=== PATIENT | female | born 1945 | race Caucasian/White ===

== ENCOUNTER 2018-07-28 13:15 | Inpatient (IN) | payer MEDICARE, OTHER ==
[~2018-07-28] VITALS: Ht 157.5 cm; Wt 66.2 kg
[~2018-07-28 13:15] MED LIST: ACET325T45 PO; ACETYLCYSTEINE ODT; AMIO200T4 PO; ASPI-831 PO; CARV6.2579 PO; CLOP75TA27 PO; DIGO0.25 PO; FLUO20CA22 PO; ISOS20TA3 PO; LOPE2TAB61 PO; METO5AMP IV; MORP2CAR IV; NITR0.4T32 SL; ONDA4VIA3 IV; PANT40TA4 PO; POTASSIUM CL PO; REG SC; RTATR NEB; RTPRO IH; SIMV20TA2 PO; THYR60TA PO; [UNRECOGNIZED DRUG - CODE] IV
[2018-07-28] MEDS ORDERED: METHYLPREDNISOLONE 125 MG INJ IV STA (13:38)
[2018-07-28] MEDS ORDERED: VANCOMYCIN 1 GM (PMX) 250 ML IVPB STA (13:38)
[2018-07-28] MEDS ORDERED: ALBUTEROL 0.5% (NEB) 2.5 MG/0.5 ML AMP INH STA (13:38)
[2018-07-28] MEDS ORDERED: SODIUM CHLORIDE 0.9% 1L BAG IV* STA (13:38)
[2018-07-28] MEDS ORDERED: LEVOFLOXACIN 750MG/D5W (PMX) 150 ML IVPB STA (13:38)
[2018-07-28] MEDS ORDERED: IPRATROPIUM (NEB) 0.5 MG/2.5 ML AMP INH STA (13:38)
[2018-07-28] MEDS ORDERED: UDKCL40 PO (14:34)
[2018-07-28] MEDS ORDERED: AMIO200T4 PO (14:41)
[2018-07-28] MEDS ORDERED: APIX5TAB PO (14:42)
[2018-07-28] MEDS ORDERED: ASCO500C7 PO (14:42)
[2018-07-28] MEDS ORDERED: HYDR25SU23 PR (14:42)
[2018-07-28] MEDS ORDERED: ASPI-903 PO (14:43)
[2018-07-28] MEDS ORDERED: BEN25 PO (14:48)
[2018-07-28] MEDS ORDERED: LORA0.5T PO (14:49)
[2018-07-28] MEDS ORDERED: FLUT1BLS INHALATION (14:49)
[2018-07-28] MEDS ORDERED: CALC1TAB79 PO (14:50)
[2018-07-28] MEDS ORDERED: CLON0.5T14 PO (14:50)
[2018-07-28] MEDS ORDERED: CLON-379 PO (14:51)
[2018-07-28] MEDS ORDERED: CYAN500T46 PO (14:52)
[2018-07-28] MEDS ORDERED: HYDR2TAB36 PO (14:54)
[2018-07-28] MEDS ORDERED: DOCU-144 PO (14:55)
[2018-07-28] MEDS ORDERED: BISA10SU55 RC (14:56)
[2018-07-28] MEDS ORDERED: FER325 PO (14:57)
[2018-07-28] MEDS ORDERED: PREM45 PO (14:57)
[2018-07-28] MEDS ORDERED: GABA100C14 PO (14:58)
[2018-07-28] MEDS ORDERED: FOLI-49 PO (14:58)
[2018-07-28] MEDS ORDERED: LACT1CAP57 PO (14:59)
[2018-07-28] MEDS ORDERED: IPRA3AMP29 INHALATION (14:59)
[2018-07-28] MEDS ORDERED: ATOR10TA65 PO (15:00)
[2018-07-28] MEDS ORDERED: FURO-110 PO (15:00)
[2018-07-28] MEDS ORDERED: LIDO5CRE24 TP (15:00)
[2018-07-28] MEDS ORDERED: MAGN400O19 PO (15:02)
[2018-07-28] MEDS ORDERED: METO-429 PO (15:02)
[2018-07-28] MEDS ORDERED: HYDR-3980 PO (15:03)
[2018-07-28] MEDS ORDERED: MULTI PO (15:03)
[2018-07-28] MEDS ORDERED: GUAI600T23 PO (15:03)
[2018-07-28] MEDS ORDERED: OMEG1CAP2 PO (15:04)
[2018-07-28] MEDS ORDERED: CHLO473M4 MM (15:04)
[2018-07-28] MEDS ORDERED: LANS30CA PO (15:05)
[2018-07-28] MEDS ORDERED: PRED20TA PO (15:05)
[2018-07-28] MEDS ORDERED: VIT1CAPS42 PO (15:05)
[2018-07-28] MEDS ORDERED: FLUO20CA38 PO (15:06)
[2018-07-28] MEDS ORDERED: PROM6.256 PO (15:06)
[2018-07-28] MEDS ORDERED: SENN-120 PO (15:07)
[2018-07-28] MEDS ORDERED: MONT10TA21 PO (15:07)
[2018-07-28] MEDS ORDERED: CARI350T29 PO (15:08)
[2018-07-28] MEDS ORDERED: TRAZ-111 PO (15:08)
[2018-07-28] MEDS ORDERED: ACET-2047 PO (15:09)
[2018-07-28] MEDS ORDERED: GUAI400T58 PO (15:10)
[2018-07-28] MEDS ORDERED: ONDA8TAB9 PO (15:10)
[2018-07-28] MEDS ORDERED: IODIXANOL LOCM 100 ML BTL ONE (15:15)
[2018-07-28] MEDS ORDERED: SOD CHLORIDE 0.9% 100 ML ONE (15:15)
[2018-07-28] MEDS ORDERED: VANCOMYCIN IV PER PHARMACY XX SCH (17:30)
[2018-07-28] MEDS ORDERED: ALBUTEROL/IPRATROPIUM (NEB) 3 ML AMP HHN PRN (17:30)
[2018-07-28 19:15] VITALS: PULSE 99
[2018-07-28 19:30] VITALS: Ht 157.5 cm; Wt 66.2 kg
[2018-07-28] MEDS: ALBUTEROL/IPRATROPIUM (NEB) 3 ML AMP HHN SCH (19:31)
--- NOTE | 2018-07-28 19:34 | CONS ---
DATE OF ADMISSION: 07/28/2018 DATE OF CONSULTATION: TYPE OF CONSULTATION: Nephrology. REASON FOR CONSULTATION: Acute kidney injury. REQUESTING PHYSICIAN: Dr. Staples. HISTORY OF PRESENT ILLNESS: This is a 73-year-old female with a past medical history of hypertension , history of anemia, recent history of hip fracture, a previous history of sepsis, pneumonia, respira tory failure who presents to [facility] from a skilled nurse facility due to shortn ess of breath. The patient recently was discharged from skilled nurse facility, but unfortunately yusuf d a mechanical fall with resultant hip fracture. The patient underwent hip arthroplasty and was gardner sferred to a skilled nurse facility. While at [facility], the patient became short of br eath and was transferred [facility]. Upon arrival to the Emergency Room, patient h ad imaging studies including a CT angio which showed moderate pulmonary fibrosis, bilateral lung apic es, mediastinal adenopathy, multifocal pleural effusions, bibasilar opacities, and dilated pulmonary arteries consistent with pulmonary hypertension. The patient upon arrival was also noted to have a w livia count of 9.3. In the Emergency Room, the patient was placed on a nonrebreather BiPAP, placed on IV antibiotics, type and cross 1 unit PRBC, and also given steroids. In terms of patient's renal history, the patient's baseline renal function is unknown. The patient o n admission was noted to have creatinine of 1.17. The patient denies any recent history of hemoptysi s, hematemesis or hematochezia. PAST MEDICAL HISTORY: As stated above, history of hypertension, history of anemia, history of respir atory failure, history of pneumonia. PAST SURGICAL HISTORY: Previous history of trach and history of PEG with removal. FAMILY HISTORY: No family history of kidney disease. SOCIAL HISTORY: Resides at a skilled nurse facility. MEDICATIONS: The patient's medications have been reviewed. ALLERGIES: ALLERGIES HAVE BEEN REVIEWED. REVIEW OF SYSTEMS: A 14-point review of systems was conducted. Pertinent positives are as stated in HPI, otherwise negative. PHYSICAL EXAMINATION: VITAL SIGNS: Blood pressure is 134/56, respiration is24, pulse 99, temperature 98.4. HEENT: Head is normocephalic. NECK: Supple. HEART: Regular rate. LUNGS: Show diminished breath sounds at the base, positive rhonchi. ABDOMEN: Soft, nontender to palpation, no rebound or guarding. EXTREMITIES: Negative for clubbing and cyanosis. No edema. DERMATOLOGIC: No rashes. MUSCULOSKELETAL: No joint effusions. NEUROLOGIC: No focal deficits. LABORATORY DATA: Sodium 138, potassium 4.1, chloride 105, BUN 26, creatinine 1.19. The patient's fe rritin level is 134. Iron saturation is 5. Hemoglobin 10.0, white count 9.3, platelet count 312. T he patient's imaging studies were reviewed. ASSESSMENT AND PLAN: This is a 73-year-old female who presents with problem: 1. Nonoliguric acute kidney injury with unknown baseline creatinine. Etiology of acute kidney injur y is possibly due to hemodynamics versus chronic kidney disease. The patient's urinalysis is bland, no active sediment. Plan at this point is to check renal ultrasound. We will check urine electrolyt es, calculate FENa. We would otherwise continue current treatment plan, continue IV antibiotics, con tinue supportive care, renally dose all meds. 2. Anemia with iron deficiency. The patient is pending blood transfusion. Continue IV iron. Rule out gastrointestinal bleed. Monitor closely. 3. Mineral bone disorder. Monitor calcium and phosphorus level. 4. Acute hypoxemic respiratory failure secondary to pneumonia, healthcare acquired, and pulmonary fi brosis. Continue medical management with antibiotics, steroids, nebulizers, and continue BiPAP as ne eded. Followup with pulmonary. 5. Multiloculated pleural effusion, etiology may be peripneumonic. Continue to monitor. Consider t horacentesis. 6. History of hypertension. Continue to monitor. 7. Acute encephalopathy, etiology toxic metabolic. 8. Status post hip arthroplasty. Thank you, Dr. Staples, for this interesting consult. It will be a pleasure to follow patient with you throughout the hospital course. Dictated By: GENEVIEVE MENJIVAR DO NR/NTS Conf#: [id number] DID#: [id number] CC: ABDIAS STAPLES MD;*EndCC*
[2018-07-28 20:00] VITALS: BP 145/65; PULSE 109; PULSE 99; RESP 22
[2018-07-28] MEDS ORDERED: ACETAMINOPHEN 325 MG TAB PO PRN (21:00)
[2018-07-28] MEDS ORDERED: MAGNESIUM HYDROXIDE 30ML CUP PO PRN (21:00)
[2018-07-28] MEDS ORDERED: CARISOPRODOL 350 MG TAB PO PRN (21:00)
[2018-07-28] MEDS ORDERED: ASCORBIC ACID 500 MG TAB.CHEW PO SCH (21:00)
[2018-07-28] MEDS ORDERED: DOCUSATE SODIUM 100 MG CAP PO PRN (21:00)
[2018-07-28] MEDS ORDERED: AMIODARONE 200 MG TAB PO SCH (21:00)
[2018-07-28] MEDS ORDERED: ONDANSETRON 4 MG INJ IV PRN (21:00)
[2018-07-28] MEDS ORDERED: FUROSEMIDE 40 MG INJ IV ONE (21:00)
--- NOTE | 2018-07-28 21:32 | CONS ---
Date/Time of Note Date/Time of Note DATE: 07/28/18 TIME: 21:25 Assessment/Plan Assessment/Plan Hospital Course 1. Hypoxemic respiratory failure 2. Pulmonary fibrosis 3. Elevated BNP most likely secondary to above 4. History of paroxysmal atrial fibrillation 5. Encephalopathy 6. Most likely pneumonia 7. History of recent fall and hip fracture status post surgery 8. Anemia 9. Lactic acidosis 10. Hypertension Recommendations: I will stop the aspirin since the patient is already on Eliquis Low-dose diuretics will be continued and adjusted as needed Chest ultrasound will be checked to evaluate for feasibility of thoracentesis if needed Antibiotic management as per internal medicine We will continue to monitor on telemetry Correct electrolytes as needed Transfusions as needed Thank you for his referral. We will continue to follow along with you DAYRON ROGERS MD [facility] Result Diagram: 07/28/18 1350 07/28/18 1350 Results 24hrs Laboratory Tests Test 07/28/18 13:38 07/28/18 13:45 07/28/18 13:50 07/28/18 13:54 Blood Gas Blood arterial Specimen Source Arterial Blood 07/28/2018 2:30:4 Date Drawn 1 PM Arterial Blood pH 7.376 (Temp corrected) Arterial Blood 40.3 pCO2 (Temp correct) Arterial Blood 82.1 pO2 (Temp corrected) Arterial Blood 23.1 HCO3 Arterial Blood -1.9 Base Excess Arterial Blood 95.7 Oxygen Saturation Vick Test N/A Arterial Blood Right Brachial Gas Puncture Site Arterial 0.9 Blood Carboxyhemo globin Arterial Blood 0.5 Methemoglobin Blood Gas A-a O2 192.9 H Differential Oxyhemoglobin 94.4 Percent Blood Gas 37.0 Temperature Blood Gas 16.0 Respiration Rate Blood Gas Actual 16 Respiration Rate Blood Gas MASK - BIPAP Modality FiO2 45.0 Blood Gas 10 Pressure Support Blood Gas 15/5 IPAP/EPAP Ratio Blood Gas TM Notified Whom Blood Gas 07/28/2018 2:50:2 Notified Time 2 PM POC Venous 1.3 Lactate White Blood Count 9.3 Red Blood Count 2.11 #L Hemoglobin 7.0 #L Hematocrit 22.9 #L Mean Corpuscular 108.5 H Volume Mean Corpuscular 33.2 H Hemoglobin Mean Corpuscular 30.6 L Hemoglobin Concen t Red Cell 17.6 H Distribution Width Platelet Count 312 Mean Platelet 10.2 Volume Immature 0.500 H Granulocytes % Neutrophils % 93.9 H Lymphocytes % 3.2 L Monocytes % 2.2 Eosinophils % 0.0 Basophils % 0.2 Nucleated Red 0.0 Blood Cells % Immature 0.050 H Granulocytes # Neutrophils # 8.7 H Lymphocytes # 0.3 L Monocytes # 0.2 L Eosinophils # 0.0 Basophils # 0.0 Nucleated Red 0.0 Blood Cells # Prothrombin Time 21.9 H Prothrombin Time 1.7 Ratio INR International 1.90 Normalized Ratio Activated 70.9 *H Partial Thrombopl ast Time D-Dimer 3570.16 H D-Dimer Comment Sodium Level 138 Potassium Level 4.1 Chloride Level 105 Carbon Dioxide 25 Level Anion Gap 8 Blood Urea 26 H Nitrogen Creatinine 1.19 H Est Glomerular Filtrat Rate mL/min Glucose Level 142 Calcium Level 8.4 Total Bilirubin 0.1 L Direct Bilirubin 0.00 Indirect 0.1 Bilirubin Aspartate Amino 25 Transf (AST/SGOT) Alanine 25 Aminotransferase (ALT/SGPT) Alkaline 87 Phosphatase Troponin I 0.025 Total Protein 6.3 Albumin 3.1 L Globulin 3.20 Albumin/Globulin 0.96 Ratio Amylase Level 94 Lipase 54 Iron Level 11 L Total Iron 222 L Binding Capacity Percent Iron 5 L Saturation B-Type 8080 H Natriuretic Peptide Test 07/28/18 15:15 07/28/18 17:05 07/28/18 19:23 Ferritin 134.0 Lactate 630 H Dehydrogenase Urine Color STRAW Urine Clarity CLEAR Urine pH 5.0 Urine Specific 1.004 [place] Urine Ketones NEGATIVE Urine Nitrite NEGATIVE Urine Bilirubin NEGATIVE Urine NEGATIVE Urobilinogen Urine Leukocyte NEGATIVE Esterase Urine Hemoglobin NEGATIVE Urine Glucose NEGATIVE Urine Total NEGATIVE Protein Lactic Acid Level 2.7 *H Consultation Date/Type/Reason Admit Date/Time Jul 28, 2018 at 18:16 Date of Consultation: Jul 28, 2018 Type of Consult cv Reason for Consultation elevated BNP. r/o Congestive heart failure Requesting Provider: ABDIAS STAPLES MD Hx of Present Illness Interventional cardiology consultation note Chief complaint: Shortness of breath Reason for consult: Elevated BNP. Rule out congestive heart failure History of present illness: Thank you for this referral. History was obtained mostly from review of the chart review of the old chart discussion with physicians and staff. Patient himself is not able to provide reliable history to This is a 73-year-old female with a past medical history of paroxysmal atrial fibrillation, hypertension, history of anemia, recent history of hip fracture, a previous history of sepsis, pneumonia, respiratory failure who presents to [facility] from a skilled nurse facility due to shortness of breath. The patient recently was discharged from skilled nurse facility, but unfortunately had a mechanical fall with resultant hip fracture. The patient underwent hip arthroplasty and was transferred to a skilled nurse facility. While at skilled nurse facility, the patient became short of breath and was transferred [facility]. Her BNP was elevated for which I was kindly asked to evaluate and treat. Upon arrival to the Emergency Room, patient had imaging studies including a CT angio which showed moderate pulmonary fibrosis, bilateral lung apices, mediastinal adenopathy, multifocal pleural effusions, bibasilar opacities, and dilated pulmonary arteries consistent with pulmonary hypertension. Patient was also noted to be anemic and transfusion has been done She denies any chest pain or pressure to me but is not a very reliable historian PAST MEDICAL HISTORY: As stated above, paroxysmal atrial fibrillation currently in sinus rhythm, history of hypertension, history of anemia, history of respiratory failure, history of pneumonia. PAST SURGICAL HISTORY: Previous history of trach and history of PEG with r ellenval. FAMILY HISTORY: No family history of early coronary artery disease SOCIAL HISTORY: Resides at a skilled nurse facility. MEDICATIONS: As per medical reconciliation sheet which was personally reviewed ALLERGIES: Reported to penicillin tetracycline Tylenol hydrocodone morphine oxycodone zolpidem Review of system: Patient denies all others except for above-mentioned Past Medical History Medications Current Medications Vancomycin HCl (Vanco Iv Per Pharmacy) VANCOMYCIN PER PHARMACY PER PROTOCOL XX ; Start 07/28/18 at 17:30 Cefepime HCl 50 ml @ 100 mls/hr Q12 IVPB ; Start 07/28/18 at 21:00 Ferric Sodium Gluconate Complex 125 mg/Sodium Chloride 110 ml @ 110 mls/hr DAILY@1300 IVPB ; Start 07/29/18 at 13:00; Stop 08/02/18 at 13:59 Albuterol/ Ipratropium (Duoneb) 3 ml Q6H RESP THERAPY HHN Last administered on 07/28/18at 19:31; Admin Dose 3 ML; Start 07/28/18 at 20:00 Albuterol/ Ipratropium (Duoneb) 3 ml Q2H RESP THERAPY PRN HHN WHEEZING AND SOB; Start 07/28/18 at 17:30 Aspirin (Halfprin) 81 mg DAILY PO ; Start 07/29/18 at 09:00 Pantoprazole (Protonix Iv) 40 mg DAILY@06 IV ; Start 07/29/18 at 06:00 Vancomycin HCl 250 ml @ 125 mls/hr Q24H IVPB ; Start 07/29/18 at 09:00 Amiodarone HCl (Cordarone) 200 mg BID PO ; Start 07/28/18 at 21:00; Status UNV Apixaban (Eliquis) 5 mg BID PO ; Start 07/28/18 at 21:00; Status UNV Ascorbic Acid (Vitamin C) 500 mg TID PO ; Start 07/28/18 at 21:00; Status UNV Aspirin (Aspirin) 81 mg DAILY PO ; Start 07/29/18 at 09:00; Status UNV Calcium/Vitamin D (Oyster Shell/ Vit-D (500/200)) 1 tab BID PO ; Start 07/28/18 at 21:00; Status UNV Clonazepam (Klonopin) 0.5 mg BID PRN PO ANXIETY; Start 07/28/18 at 21:00; Status UNV Clonidine (Catapres) 0.1 mg TID PRN PO ELEVATED BLOOD PRESSURE; Start 07/28/18 at 21:00; Status UNV Hydromorphone HCl (Dilaudid) 2 mg Q4H PRN PO SEVERE PAIN LEVEL 7-10; Start 07/28/18 at 21:00; Status UNV Docusate Sodium (Colace) 100 mg BID PRN PO CONSTIPATION; Start 07/28/18 at 21:00; Status UNV Estrogens Conjugated (Premarin) 0.45 mg DAILY PO ; Start 07/29/18 at 09:00; Status UNV Gabapentin (Neurontin) 200 mg BID PO ; Start 07/28/18 at 21:00; Status UNV Furosemide (Lasix) 20 mg DAILY PO ; Start 07/29/18 at 09:00; Status UNV Atorvastatin Calcium (Lipitor) 10 mg HS PO ; Start 07/28/18 at 21:00; Status UNV Metoprolol Tartrate (Lopressor) 25 mg BID PO ; Start 07/28/18 at 21:00; Status UNV Magnesium Hydroxide (Milk Of Mag) 30 ml DAILY PRN PO CONSTIPATION; Start 07/28/18 at 21:00; Status UNV Acetaminophen/ Hydrocodone Bitart ([place] (10/325)) 1 tab Q4H PRN PO MODERATE PAIN LEVEL 4-6; Start 07/28/18 at 21:00; Status UNV Fluoxetine HCl (Prozac) 20 mg DAILY PO ; Start 07/29/18 at 09:00; Status UNV Carisoprodol (Soma) 350 mg BID PRN PO MUSCLE SPASMS; Start 07/28/18 at 21:00; Status UNV Trazodone HCl (Desyrel) 50 mg HS PRN PO INSOMNIA; Start 07/28/18 at 21:00; Status UNV Acetaminophen (Tylenol Tab) 650 mg Q6H PRN PO MILD PAIN(1-3)OR ELEVATED TEMP; Start 07/28/18 at 21:00; Status UNV Ondansetron HCl (Zofran Inj) 4 mg Q6H PRN IV NAUSEA AND/OR VOMITING; Start 07/28/18 at 21:00; Status UNV Methylprednisolone Sodium Succinate (Solu-Medrol) 40 mg DAILY IV ; Start 07/29/18 at 09:00; Status UNV Furosemide (Lasix) 40 mg ONCE ONCE IV ; Start 07/28/18 at 21:00; Stop 07/28/18 at 21:01; Status UNV Allergies: Coded Allergies: Penicillins (Verified Allergy, Unknown, SWELLING, 09/03/07) Tetracyclines (Verified Allergy, Unknown, 08/10/16) acetaminophen (Unverified Allergy, Unknown, 07/11/14) RE-ENTERED UNCODED ALLERGY CODED hydrocodone (Unverified Allergy, Unknown, 07/11/14) RE-ENTERED UNCODED ALLERGY CODED morphine (Verified Allergy, Unknown, 08/10/16) oxycodone (Unverified Allergy, Unknown, 07/11/14) RE-ENTERED UNCODED ALLERGY CODED zolpidem (Verified Allergy, Unknown, SWELLING, 09/03/07) Social History Smoking Status: Former smoker Exam/Review of Systems Vital Signs Vitals Vital Signs Date Temp Pulse Resp B/P (MAP) Pulse Ox O2 O2 Flow FiO2 Time Delivery Rate 07/28/18 92 6.0 21:10 07/28/18 97.4 99 22 145/65 20:00 (91) 07/28/18 Nasal 19:32 Cannula 07/28/18 45 13:50 Exam General: Elderly female appears older than his stated age no acute distress HEENT: NC/AT. pupils are equal. round. NECK: + JVD. no stridor. CV: RRR. systolic murmur; no gallop or rubs. PULM: no wheezing + rhonchi. GI: SOFT, NT, ND, no rebound or guarding Extremity: No significant LE edema. no clubbing. neuro: Drowsy. Does not answer much of my question Psych: calm rectal: deferred : Deferred EKG was personally within normal sinus rhythm with no evidence of ischemia CT pulmonary angiogram done in the emergency room shows: 1. Moderate pulmonary fibrosis, worse at the bilateral lung apices. Associated mediastinal adenopathy. Underlying mass not entirely excluded. Further evaluation with PET-CT may be obtained. 2. Small right multiloculated pleural effusion. Moderate left layering pleural effusion. 3. Streaky bibasilar opacities compatible with atelectasis or pneumonia. 4. Dilated pulmonary trunk and bilateral pulmonary arteries compatible with sequelae of pulmonary hypertension. 5. Left renal 4 cm hyperdense cyst or mass. Further evaluation with multiphase contrast enhanced CT or MR may be obtained. Medications Medications Current Medications Vancomycin HCl (Vanco Iv Per Pharmacy) VANCOMYCIN PER PHARMACY PER PROTOCOL XX ; Start 07/28/18 at 17:30 Cefepime HCl 50 ml @ 100 mls/hr Q12 IVPB ; Start 07/28/18 at 21:00 Ferric Sodium Gluconate Complex 125 mg/Sodium Chloride 110 ml @ 110 mls/hr DAILY@1300 IVPB ; Start 07/29/18 at 13:00; Stop 08/02/18 at 13:59 Albuterol/ Ipratropium (Duoneb) 3 ml Q6H RESP THERAPY HHN Last administered on 07/28/18at 19:31; Admin Dose 3 ML; Start 07/28/18 at 20:00 Albuterol/ Ipratropium (Duoneb) 3 ml Q2H RESP THERAPY PRN HHN WHEEZING AND SOB; Start 07/28/18 at 17:30 Aspirin (Halfprin) 81 mg DAILY PO ; Start 07/29/18 at 09:00 Pantoprazole (Protonix Iv) 40 mg DAILY@06 IV ; Start 07/29/18 at 06:00 Vancomycin HCl 250 ml @ 125 mls/hr Q24H IVPB ; Start 07/29/18 at 09:00 Amiodarone HCl (Cordarone) 200 mg BID PO ; Start 07/28/18 at 21:00; Status UNV Apixaban (Eliquis) 5 mg BID PO ; Start 07/28/18 at 21:00; Status UNV Ascorbic Acid (Vitamin C) 500 mg TID PO ; Start 07/28/18 at 21:00; Status UNV Aspirin (Aspirin) 81 mg DAILY PO ; Start 07/29/18 at 09:00; Status UNV Calcium/Vitamin D (Oyster Shell/ Vit-D (500/200)) 1 tab BID PO ; Start 07/28/18 at 21:00; Status UNV Clonazepam (Klonopin) 0.5 mg BID PRN PO ANXIETY; Start 07/28/18 at 21:00; Status UNV Clonidine (Catapres) 0.1 mg TID PRN PO ELEVATED BLOOD PRESSURE; Start 07/28/18 at 21:00; Status UNV Hydromorphone HCl (Dilaudid) 2 mg Q4H PRN PO SEVERE PAIN LEVEL 7-10; Start 07/28/18 at 21:00; Status UNV Docusate Sodium (Colace) 100 mg BID PRN PO CONSTIPATION; Start 07/28/18 at 21:00; Status UNV Estrogens Conjugated (Premarin) 0.45 mg DAILY PO ; Start 07/29/18 at 09:00; Status UNV Gabapentin (Neurontin) 200 mg BID PO ; Start 07/28/18 at 21:00; Status UNV Furosemide (Lasix) 20 mg DAILY PO ; Start 07/29/18 at 09:00; Status UNV Atorvastatin Calcium (Lipitor) 10 mg HS PO ; Start 07/28/18 at 21:00; Status UNV Metoprolol Tartrate (Lopressor) 25 mg BID PO ; Start 07/28/18 at 21:00; Status UNV Magnesium Hydroxide (Milk Of Mag) 30 ml DAILY PRN PO CONSTIPATION; Start 07/28/18 at 21:00; Status UNV Acetaminophen/ Hydrocodone Bitart ([place] (10/325)) 1 tab Q4H PRN PO MODERATE PAIN LEVEL 4-6; Start 07/28/18 at 21:00; Status UNV Fluoxetine HCl (Prozac) 20 mg DAILY PO ; Start 07/29/18 at 09:00; Status UNV Carisoprodol (Soma) 350 mg BID PRN PO MUSCLE SPASMS; Start 07/28/18 at 21:00; Status UNV Trazodone HCl (Desyrel) 50 mg HS PRN PO INSOMNIA; Start 07/28/18 at 21:00; Status UNV Acetaminophen (Tylenol Tab) 650 mg Q6H PRN PO MILD PAIN(1-3)OR ELEVATED TEMP; Start 07/28/18 at 21:00; Status UNV Ondansetron HCl (Zofran Inj) 4 mg Q6H PRN IV NAUSEA AND/OR VOMITING; Start 07/28/18 at 21:00; Status UNV Methylprednisolone Sodium Succinate (Solu-Medrol) 40 mg DAILY IV ; Start 07/29/18 at 09:00; Status UNV Furosemide (Lasix) 40 mg ONCE ONCE IV ; Start 07/28/18 at 21:00; Stop 07/28/18 at 21:01; Status UNV DAYRON ROGERS MD Jul 28, 2018 21:32
[2018-07-28] MEDS: APIXABAN 5 MG TABLET PO SCH (22:30)
[2018-07-28] MEDS: GABAPENTIN 100 MG CAP PO SCH (22:30)
[2018-07-28] MEDS: ATORVASTATIN 10 MG TAB PO SCH (22:31)
[2018-07-28] MEDS: CALCIUM/VITAMIN D (500/200) TAB PO SCH (22:31)
[2018-07-28] MEDS: METOPROLOL 25 MG TAB PO SCH (22:31)
[2018-07-28] MEDS: HYDROCODONE/APAP (10/325) TAB PO PRN (23:22)
--- NOTE | 2018-07-28 23:43 | HP ---
DATE OF ADMISSION: 07/28/2018 CHIEF COMPLAINT: Shortness of breath and productive cough. HISTORY OF PRESENT ILLNESS: The patient is a 73-year-old female with history of nonobstructive coronary artery disease (cardiac catheterization in 2012) , COPD, hypertension, paroxysmal atrial fibrillation, peripheral vascular disease status post PCI, dyslipidemia, hypothyroidism, anxiety and depression. The patient developed acute respiratory failure back in 2013 and was at [facility]. At that time patient underwent tracheostomy and G-tube placement which she was subsequently decannulated. G tube was also removed. The patient was sent to a board and care and was re hospitalized at [facility] in 06/2016 after a fall which led to splenic laceration. The patient underwent embolization of splenic artery and again underwent tracheostomy and G-tube placement and was sent to [facility]. The patient from [facility] was sent to [facility] subacute unit and after decannulation, she was sent to [facility] fdc facility. Meanwhile G-tube was also removed. The patient few weeks ago, was sent home and her respiratory status was stable. The patient was not even requiring oxygen. The patient, however, sustained a fall at home and was taken to [facility] and was diagnosed with right hip fracture. The patient underwent RF and after about a week, she was sent back to [facility] fdc [facility] for recuperation. The patient was seen by me at fdc facility yesterday due to cough, shortness of breath and fever. The patient was noted to be hypoxemic and had to be put on 4 to 5 liters of oxygen via nasal cannula. The patient also had a fever around 100. The patient was advised to go to the hospital, however, she refused. I explained to her that she could get worse and she needs close monitoring. However, she still did not want to come to the hospital. This morning, I was called by [facility] nursing [facility] staff that she was getting worse as far as respiratory status is concerned. Meanwhile, I had ordered a stat workup at [facility] and had started her on vancomycin and cefepime along with systemic steroids,& breathing treatment. X-ray done yesterday did reveal bilateral infiltrate and the patient also had leukocytosis. The patient was sent to the ER today due to worsening respiratory status. The patient denied any chest pain, no reported hemoptysis. No reported leg pain, no leg edema. No reported resting leg pain. No reported vomiting, no reported bleeding from any site. The patient looks pale and weak and was getting short of breath even at rest. Initially, she was placed on BiPAP due to significant hypoxemia. The patient did not have any headache, dizziness, syncope. No history of focal weakness. No history of dysuria or hematuria. No vomiting or diarrhea. REVIEW OF SYSTEMS: A total of 12 systems reviewed, all pertinent positive and negative findings have been described in the HPI. The patient does have history of chronic neuropathic pain and also has a muscle spasm. The patient's anxiety and depression have remained stable on benzodiazepine and Prozac. The patient was seen in the ER and was noted to have white count of 9.3, hemoglobin The patient had 94% neutrophils. Chemistry: Sodium 138, potassium 4.1, BUN 26, creatinine 1.1. Lactic acid was 2.7. The patient also noted to have iron deficiency anemia. The patient underwent a chest x-ray which revealed bilateral patchy infiltrate. CT pulmonary angiogram revealed pulmonary fibrosis. No pulmonary embolism, diffuse mediastinal adenopathy. The patient is being admitted for further evaluation and management. PAST MEDICAL HISTORY: As stated above in detail in HPI. In addition, the patient also has history of acute kidney injury several years ago and required hemodialysis, history of left perinephric hematoma and history of nasal fracture. The patient also has history of pancreatic head mass which was evaluated by Dr. Adler back in 2014, although she did have elevated CA 19-9. The patient pancreatic mass for which she has been going to a specialist for yearly evaluation. ALLERGIES: PATIENT IS ALLERGIC TO: 1. PENICILLIN. 2. TETRACYCLINE. 3. ACETAMINOPHEN. 4. HYDROCODONE. 5. MORPHINE. 6. OXYCODONE. 7. ZOLPIDEM. Although the patient is able to take [place] without any problem. SOCIAL HISTORY: The patient has history of heavy smoking in the past, quit almost 10 years ago. No alcohol abuse. FAMILY HISTORY: Negative for any cancer. PHYSICAL EXAMINATION: GENERAL: The patient is awake, alert, fairly oriented. VITAL SIGNS: Upon arrival, temperature 99, pulse 91, respiration 22, blood pressure 112/53, O2 saturation 92% on FIO2 of 45%. Subsequently, patient was put on BiPAP. HEENT: Atraumatic, normocephalic. Conjunctivae are normal. Nose and ears normal. Subsequently, the patient BiPAP was removed and patient was put on nonrebreather mask, which was also subsequently weaned off to nasal cannula. Oropharynx examination was deferred due to nonrebreather mask. NECK: Supple, no mass, no thyromegaly. CHEST: Revealed extensive bilateral rales. Scattered rhonchi. CARDIOVASCULAR: S1, S2 normal, no murmur. Currently, the patient is sinus rhythm. ABDOMEN: Soft, nondistended and nontender. EXTREMITIES: No leg edema. Pedal pulses could not be felt. SKIN: Without acute rash or ulcer. Right hip incision healing well. NEUROLOGIC: The patient is awake, alert, fairly oriented with no gross focal deficit. LABORATORY STUDIES: Labs and radiological studies as above. ABG done today revealed pH 7.37, pCO2 40.3, pO2 82% that was on BiPAP. IMPRESSION: 1. Acute hypoxemic respiratory failure due to healthcare-acquired pneumonia. The patient will be started on IV vancomycin and cefepime. We will continue breathing treatment and systemic steroids. 2. Bilateral pulmonary fibrosis. Continue supplemental oxygen and symptomatic treatment with steroids. 3. Chronic obstructive pulmonary disease. Continue DuoNeb and steroids. 4. Paroxysmal atrial fibrillation. The patient remained in sinus rhythm. Continue amiodarone and metoprolol. 5. Hypertension. Continue metoprolol and Lasix. p.r.n. clonidine. 6. Anxiety and depression, stable with Klonopin and Prozac. 7. Dyslipidemia. Continue Lipitor. 8. Nonobstructive coronary artery disease as per cardiac catheterization in 2013. Continue baby aspirin. 9. Peripheral artery disease, status post stent. Continue Eliquis, which also will be used for DVT prophylaxis and also for paroxysmal atrial fibrillation. 10. Recent right hip fracture status post surgery. We will initiate physical therapy once her respiratory status improved. 11. Pancreatic head mass. As per patient, she has been going to a specialist every year for followup. Meanwhile, I requested a consult from Dr. Ham from pulmonary standpoint, Dr. Frost from cardiac standpoint, Dr. Menjivar from nephrology standpoint. The patient also has symptomatic anemia and therefore, she will be given 2 units of PRBC. We will also order echocardiogram and TSH. The patient remains critical. Further recommendation will depend upon patient's hospital course. Dictated By: ABDIAS HENRY/NTS Conf#: [id number] DID#: [id number] CC: GENEVIEVE MENJIVAR DO;*EndCC* MTDD
[2018-07-28] MEDS: CEFEPIME 1GM/50 ML (PMX) 50 ML IVPB SCH (23:45)
[2018-07-28 23:50] VITALS: BP 147/66; PULSE 87; RESP 20
[2018-07-29] VITALS (13 sets, daily range): BP systolic 117–178; BP diastolic 57–79; PULSE 79–118; RESP 20–22
[2018-07-29] MEDS: clonAZEPAM 0.5 MG TAB PO PRN (01:00)
[2018-07-29] MEDS: ALBUTEROL/IPRATROPIUM (NEB) 3 ML AMP HHN SCH ×4 (01:32→19:31)
[2018-07-29] MEDS: traZODone 50 MG TAB PO PRN ×2 (04:18→20:29)
[2018-07-29] MEDS: PANTOPRAZOLE 40 MG INJ IV SCH (05:39)
--- NOTE | 2018-07-29 08:54 | CONS ---
Date/Time of Note Date/Time of Note DATE: 07/29/18 TIME: 08:52 Consult Date/Type/Reason Admit Date/Time Jul 28, 2018 at 18:16 Initial Consult Date 07/28/18 Type of Consultation: cv Requesting Provider: ABDIAS STAPLES MD Subjective Cardiology follow-up progress note Subjective: Discussed with the staff and physicians. Telemetry was reviewed. Patient remains in normal sinus rhythm. Patient is still complaint of shortness of breath. No chest pain or pressure to Objective: General: Elderly female appears older than his stated age on oxygen HEENT: NC/AT. pupils are equal. round. NECK: + JVD. no stridor. CV: RRR. systolic murmur; no gallop or rubs. PULM: no wheezing + rhonchi. GI: SOFT, NT, ND, no rebound or guarding Extremity: No significant LE edema. no clubbing. neuro: Awake and alert responds appropriately now Psych: calm rectal: deferred : Deferred EKG was personally within normal sinus rhythm with no evidence of ischemia CT pulmonary angiogram done in the emergency room shows: 1. Moderate pulmonary fibrosis, worse at the bilateral lung apices. Associated mediastinal adenopathy. Underlying mass not entirely excluded. Further evaluation with PET-CT may be obtained. 2. Small right multiloculated pleural effusion. Moderate left layering pleural effusion. 3. Streaky bibasilar opacities compatible with atelectasis or pneumonia. 4. Dilated pulmonary trunk and bilateral pulmonary arteries compatible with sequelae of pulmonary hypertension. 5. Left renal 4 cm hyperdense cyst or mass. Further evaluation with multiphase contrast enhanced CT or MR may be obtained. Objective Vital Signs Date Temp Pulse Resp B/P (MAP) Pulse Ox O2 O2 Flow FiO2 Time Delivery Rate 07/29/18 118 08:05 07/29/18 91 15.0 07:43 07/29/18 24 Non 100 07:43 Rebreather Mask 07/29/18 97.8 178/79 07:31 (112) Intake and Output 07/28/18 07/28/18 07/29/18 1515:00 23:00 07:00 IntakeIntake Total 350 ml 1300 ml OutputOutput Total 500 ml 2600 ml BalanceBalance -150 ml -1300 ml Results/Medications Result Diagram: 07/29/18 0546 07/29/18 0545 Results 24 hrs Laboratory Tests Test 07/28/18 13:38 07/28/18 13:45 07/28/18 13:50 07/28/18 13:54 Blood Gas Blood arterial Specimen Source Arterial Blood 07/28/2018 2:30:4 Date Drawn 1 PM Arterial Blood pH 7.376 (Temp corrected) Arterial Blood 40.3 pCO2 (Temp correct) Arterial Blood 82.1 pO2 (Temp corrected) Arterial Blood 23.1 HCO3 Arterial Blood -1.9 Base Excess Arterial Blood 95.7 Oxygen Saturation Vick Test N/A Arterial Blood Right Brachial Gas Puncture Site Arterial 0.9 Blood Carboxyhemo globin Arterial Blood 0.5 Methemoglobin Blood Gas A-a O2 192.9 H Differential Oxyhemoglobin 94.4 Percent Blood Gas 37.0 Temperature Blood Gas 16.0 Respiration Rate Blood Gas Actual 16 Respiration Rate Blood Gas MASK - BIPAP Modality FiO2 45.0 Blood Gas 10 Pressure Support Blood Gas 15/5 IPAP/EPAP Ratio Blood Gas TM Notified Whom Blood Gas 07/28/2018 2:50:2 Notified Time 2 PM POC Venous 1.3 Lactate White Blood Count 9.3 Red Blood Count 2.11 #L Hemoglobin 7.0 #L Hematocrit 22.9 #L Mean Corpuscular 108.5 H Volume Mean Corpuscular 33.2 H Hemoglobin Mean Corpuscular 30.6 L Hemoglobin Concen t Red Cell 17.6 H Distribution Width Platelet Count 312 Mean Platelet 10.2 Volume Immature 0.500 H Granulocytes % Neutrophils % 93.9 H Lymphocytes % 3.2 L Monocytes % 2.2 Eosinophils % 0.0 Basophils % 0.2 Nucleated Red 0.0 Blood Cells % Immature 0.050 H Granulocytes # Neutrophils # 8.7 H Lymphocytes # 0.3 L Monocytes # 0.2 L Eosinophils # 0.0 Basophils # 0.0 Nucleated Red 0.0 Blood Cells # Prothrombin Time 21.9 H Prothrombin Time 1.7 Ratio INR International 1.90 Normalized Ratio Activated 70.9 *H Partial Thrombopl ast Time D-Dimer 3570.16 H D-Dimer Comment Sodium Level 138 Potassium Level 4.1 Chloride Level 105 Carbon Dioxide 25 Level Anion Gap 8 Blood Urea 26 H Nitrogen Creatinine 1.19 H Est Glomerular Filtrat Rate mL/min Glucose Level 142 Calcium Level 8.4 Total Bilirubin 0.1 L Direct Bilirubin 0.00 Indirect 0.1 Bilirubin Aspartate Amino 25 Transf (AST/SGOT) Alanine 25 Aminotransferase (ALT/SGPT) Alkaline 87 Phosphatase Troponin I 0.025 Total Protein 6.3 Albumin 3.1 L Globulin 3.20 Albumin/Globulin 0.96 Ratio Amylase Level 94 Lipase 54 Iron Level 11 L Total Iron 222 L Binding Capacity Percent Iron 5 L Saturation B-Type 8080 H Natriuretic Peptide Test 07/28/18 15:15 07/28/18 17:05 07/28/18 19:23 07/29/18 05:45 Ferritin 134.0 Lactate 630 H Dehydrogenase Urine Color STRAW Urine Clarity CLEAR Urine pH 5.0 Urine Specific 1.004 [place] Urine Ketones NEGATIVE Urine Nitrite NEGATIVE Urine Bilirubin NEGATIVE Urine NEGATIVE Urobilinogen Urine Leukocyte NEGATIVE Esterase Urine Hemoglobin NEGATIVE Urine Glucose NEGATIVE Urine Total NEGATIVE Protein Lactic Acid Level 2.7 *H 0.9 Sodium Level 148 H Potassium Level 4.4 Chloride Level 109 Carbon Dioxide 26 Level Anion Gap 13 Blood Urea 21 H Nitrogen Creatinine 0.97 Est Glomerular Filtrat Rate mL/min Glucose Level 117 Calcium Level 8.8 Thyroid 0.713 Stimulating Hormone (TSH) Free Thyroxine 0.92 Test 07/29/18 05:46 White Blood Count 14.4 #H Red Blood Count 3.09 #L Hemoglobin 9.9 #L Hematocrit 30.6 #L Mean Corpuscular 99.0 Volume Mean Corpuscular 32.0 Hemoglobin Mean Corpuscular 32.4 Hemoglobin Concen t Red Cell 23.2 #H Distribution Width Platelet Count 309 Mean Platelet 9.9 Volume Immature 0.500 H Granulocytes % Neutrophils % 86.9 H Lymphocytes % 6.7 L Monocytes % 5.8 Eosinophils % 0.0 Basophils % 0.1 Nucleated Red 0.0 Blood Cells % Immature 0.070 H Granulocytes # Neutrophils # 12.5 H Lymphocytes # 1.0 Monocytes # 0.8 Eosinophils # 0.0 Basophils # 0.0 Nucleated Red 0.0 Blood Cells # Medications Current Medications Vancomycin HCl (Vanco Iv Per Pharmacy) VANCOMYCIN PER PHARMACY PER PROTOCOL XX ; Start 07/28/18 at 17:30 Cefepime HCl 50 ml @ 100 mls/hr Q12 IVPB Last administered on 07/28/18at 23:45; Admin Dose 100 MLS/HR; Start 07/28/18 at 21:00 Ferric Sodium Gluconate Complex 125 mg/Sodium Chloride 110 ml @ 110 mls/hr DAILY@1300 IVPB ; Start 07/29/18 at 13:00; Stop 08/02/18 at 13:59 Albuterol/ Ipratropium (Duoneb) 3 ml Q6H RESP THERAPY HHN Last administered on 07/29/18at 07:41; Admin Dose 3 ML; Start 07/28/18 at 20:00 Albuterol/ Ipratropium (Duoneb) 3 ml Q2H RESP THERAPY PRN HHN WHEEZING AND SOB; Start 07/28/18 at 17:30 Aspirin (Halfprin) 81 mg DAILY PO ; Start 07/29/18 at 09:00 Pantoprazole (Protonix Iv) 40 mg DAILY@06 IV Last administered on 07/29/18at 05:39; Admin Dose 40 MG; Start 07/29/18 at 06:00 Vancomycin HCl 250 ml @ 125 mls/hr Q24H IVPB ; Start 07/29/18 at 09:00 Amiodarone HCl (Cordarone) 200 mg BID PO ; Start 07/28/18 at 21:00; Status Hold Apixaban (Eliquis) 5 mg BID PO Last administered on 07/28/18at 22:30; Admin Dose 5 MG; Start 07/28/18 at 21:00 Calcium/Vitamin D (Oyster Shell/ Vit-D (500/200)) 1 tab BID PO Last administered on 07/28/18at 22:31; Admin Dose 1 TAB; Start 07/28/18 at 21:00 Clonazepam (Klonopin) 0.5 mg BID PRN PO ANXIETY Last administered on 07/29/18at 01:00; Admin Dose 0.5 MG; Start 07/28/18 at 21:00 Clonidine (Catapres) 0.1 mg TID PRN PO ELEVATED BLOOD PRESSURE; Start 07/28/18 at 21:00 Hydromorphone HCl (Dilaudid) 2 mg Q4H PRN PO SEVERE PAIN LEVEL 7-10; Start 07/28/18 at 21:00 Docusate Sodium (Colace) 100 mg BID PRN PO CONSTIPATION; Start 07/28/18 at 21:00 Estrogens Conjugated (Premarin) 0.45 mg DAILY PO ; Start 07/29/18 at 09:00 Gabapentin (Neurontin) 200 mg BID PO Last administered on 07/28/18at 22:30; Admin Dose 200 MG; Start 07/28/18 at 21:00 Furosemide (Lasix) 20 mg DAILY PO ; Start 07/29/18 at 09:00 Atorvastatin Calcium (Lipitor) 10 mg HS PO Last administered on 07/28/18at 22:31; Admin Dose 10 MG; Start 07/28/18 at 21:00 Metoprolol Tartrate (Lopressor) 25 mg BID PO Last administered on 07/28/18at 22:31; Admin Dose 25 MG; Start 07/28/18 at 21:00 Magnesium Hydroxide (Milk Of Mag) 30 ml DAILY PRN PO CONSTIPATION; Start 07/28/18 at 21:00 Acetaminophen/ Hydrocodone Bitart ([place] (10325)) 1 tab Q4H PRN PO MODERATE PAIN LEVEL 4-6 Last administered on 07/28/18at 23:22; Admin Dose 1 TAB; Start 07/28/18 at 21:00 Fluoxetine HCl (Prozac) 20 mg DAILY PO ; Start 07/29/18 at 09:00 Carisoprodol (Soma) 350 mg BID PRN PO MUSCLE SPASMS; Start 07/28/18 at 21:00 Trazodone HCl (Desyrel) 50 mg HS PRN PO INSOMNIA Last administered on 07/29/18at 04:18; Admin Dose 50 MG; Start 07/28/18 at 21:00 Acetaminophen (Tylenol Tab) 650 mg Q6H PRN PO MILD PAIN(1-3)OR ELEVATED TEMP; Start 07/28/18 at 21:00 Ondansetron HCl (Zofran Inj) 4 mg Q6H PRN IV NAUSEA AND/OR VOMITING; Start 07/28/18 at 21:00 Methylprednisolone Sodium Succinate (Solu-Medrol) 40 mg DAILY IV ; Start 07/29/18 at 09:00 Ascorbic Acid (Vitamin C) 500 mg TID PO ; Start 07/29/18 at 09:00 Assessment/Plan Chief Complaint/Hosp Course 1. Hypoxemic respiratory failure 2. Pulmonary fibrosis 3. Elevated BNP most likely secondary to above 4. History of paroxysmal atrial fibrillation 5. Encephalopathy 6. Most likely pneumonia 7. History of recent fall and hip fracture status post surgery 8. Anemia 9. Lactic acidosis 10. Hypertension Recommendations: Off the aspirin since the patient is already on Eliquis Low-dose diuretics will be continued and adjusted as needed. I will switch to IV Lasix for now Chest ultrasound did not show significant effusion Antibiotic management as per internal medicine We will continue to monitor on telemetry Correct electrolytes as needed Transfusions as needed I have held amiodarone and we will to stop it in fact given concern about her severe pulmonary disease and pulmonary fibrosis TSH is within normal limits Thank you for his referral. We will continue to follow along with you DAYRON ROGERS MD [facility] DAYRON ROGERS MD Jul 29, 2018 08:54
[2018-07-29] MEDS: VANCOMYCIN 1 GM 250 ML IVPB SCH (08:55)
[2018-07-29] MEDS: CALCIUM/VITAMIN D (500/200) TAB PO SCH ×2 (08:55→20:28)
[2018-07-29] MEDS: CEFEPIME 1GM/50 ML (PMX) 50 ML IVPB SCH ×2 (08:55→20:25)
[2018-07-29] MEDS: ASCORBIC ACID 500 MG TAB PO SCH ×3 (08:56→20:28)
[2018-07-29] MEDS: GABAPENTIN 100 MG CAP PO SCH ×2 (08:56→20:28)
[2018-07-29] MEDS: FLUOXETINE 20 MG CAP PO SCH (08:56)
[2018-07-29] MEDS: METOPROLOL 25 MG TAB PO SCH ×2 (08:57→20:29)
[2018-07-29] MEDS: HYDROmorphONE 2 MG TAB PO PRN (08:59)
[2018-07-29] MEDS ORDERED: ASPIRIN (EC) 81 MG TAB PO SCH (09:00)
[2018-07-29] MEDS ORDERED: ASPIRIN 81 MG TAB PO SCH (09:00)
[2018-07-29] MEDS: APIXABAN 5 MG TABLET PO SCH (09:00)
[2018-07-29] MEDS ORDERED: ESTROGENS CONJUGATED 0.45 MG PO SCH (09:00)
[2018-07-29] MEDS ORDERED: FUROSEMIDE 20 MG TAB PO SCH (09:00)
--- NOTE | 2018-07-29 09:07 | PN ---
DATE: 07/29/2018 SUBJECTIVE: The patient continues to be in respiratory distress. The patient has ongoing hemoptysis . No other acute events noted. OBJECTIVE: VITAL SIGNS: Blood pressure is 178/79, respirations 20, pulse 114, temperature 97.8. HEENT: Head is normocephalic. NECK: Supple. HEART: Regular rate. LUNGS: Show diminished breath sounds at the base. Positive rhonchi. ABDOMEN: Soft, nontender to palpation without rebound or guarding. EXTREMITIES: Negative for clubbing, cyanosis, no edema. DERMATOLOGIC: No rashes. MUSCULOSKELETAL: No joint effusions. NEUROLOGIC: No change in exam. MEDICATIONS: Reviewed. LABORATORY DATA: Shows sodium 148, potassium 4.4, BUN 21, creatinine 0.96. Lactic acid 2.7, 0.9. W livia count 14.4, hemoglobin 9.9, platelet count is 309. ASSESSMENT AND PLAN: 1. Nonoliguric acute kidney injury with unknown baseline creatinine. Etiology of acute kidney injur y is likely secondary to hemodynamics. Renal function has improved with IV hydration and supportive care. Continue to monitor. Continue to renally dose all medicines. 2. Hypernatremia. The patient has a free water deficit approximately 2.5 liters. We would encourag e free water intake. If unable to tolerate p.o., we will start the patient on D5 water. 3. Anemia with iron deficiency. The patient is on IV iron. Status post blood transfusion, monitor H and hematocrit levels. 4. Mineral bone disorder. Monitor calcium and phosphorus levels. 5. Acute hypoxemic respiratory failure secondary to pneumonia, pulmonary fibrosis. Continue current medical management with antibiotics, steroids, nebulizers. Continue face mask. Consider pulmonary evaluation. 6. Pleural effusion, etiology may be naseem-pneumonic, continue to monitor. 7. Hypertension. Continue current blood pressure regimen. 8. Encephalopathy, etiology is toxic metabolic. 9. Status post hip arthroplasty. 10. Anxiety, depression. Continue current medical management. 11. Hypertension. Continue current blood pressure regimen. 12. Paroxysmal atrial fibrillation, currently in sinus rhythm. Continue current treatment plan. 13. History of peripheral arterial disease status post stent. Continue anticoagulation. 14. Pancreatic head mass. Continue to monitor. Dictated By: GENEVIEVE BERNSTEIN/NTS Conf#: [id number] DID#: [id number] CC: ABDIAS STAPLES MD; GENEVIEVE MENJIVAR DO;*EndCC*
[2018-07-29] MEDS: METHYLPREDNISOLONE 40 MG INJ IV SCH (09:10)
[2018-07-29] MEDS: FUROSEMIDE 20 MG INJ IV SCH ×2 (10:08→17:41)
[2018-07-29] MEDS: ESTROGENS CONJUGATED 0.3 MG TAB PO SCH (11:28)
[2018-07-29] MEDS: SOD FERRIC GLUC COMPLX 125 MG in SOD CHLORIDE 0.9% 100 ML IVPB SCH (13:15)
--- NOTE | 2018-07-29 15:27 | PN ---
Date/Time of Note Date/Time of Note DATE: 07/29/18 TIME: 15:00 Assessment/Plan VTE Prophylaxis Risk score (from Ns)>0 risk: 4 SCD applied (from Ns): Yes Pharmacological prophylaxis: NA/contraindicated Pharm contraindication: bleeding Lines/Catheters IV [facility]ter [facility]from [facility] Saline Lock Urinary Cath still in place: Yes Reason Cath still needed: urinary retention Assessment/Plan Hospital Course Patient had nosebleed, status post blood transfusion, today's hemoglobin is 9.9. Hold aspirin and Eliquis for now continue to monitor hemoglobin and hematocrit, SCD for DVT prophylaxis. Patient refusing BiPAP stating that she gets very a gitated, patient is currently on 15 L nonrebreather mask. Pt remains in sinus rhythm. Patient's condition and plan of care discussed with patient, patient daughter and RN at the bedside. Assessment/Plan -Anemia of acute blood loss secondary to nosebleed, status post blood gardner sfusion, continue to monitor hemoglobin and hematocrit. Hold aspirin and Eliquis for now. - Acute hypoxemic respiratory failure due to healthcare-acquired pneumonia. Continue vancomycin and cefepime. Continue breathing treatment and systemic steroids. Dr. Ham from pulmonary standpoint. Dr. Brown is asked to see patient in infection disease consultation. - Bilateral pulmonary fibrosis. Continue supplemental oxygen and symptomatic treatment with steroids. - Chronic obstructive pulmonary disease. Continue DuoNeb and steroids. - Nonobstructive coronary artery disease as per cardiac catheterization in 2012. Continue baby aspirin. Dr. Frost is following from cardiac standpoint. - Paroxysmal atrial fibrillation. The patient remained in sinus rhythm. Continue amiodarone and metoprolol. - Hypertension. Continue metoprolol and Lasix. p.r.n. clonidine. - Peripheral artery disease, status post stent. Continue Eliquis. - Dyslipidemia. Continue Lipitor. - MARQUES, Dr. Salazar from nephrology standpoint. - Recent right hip fracture, status post surgery. - Pancreatic head mass. As per patient, she has been going to a specialist every year for followup. - Anxiety and depression, continue Klonopin and Prozac. Further recommendations based on clinical course. Plan of care discussed with Dr. Pack. Result Diagram: 07/29/18 0546 07/29/18 0545 Results 24hrs Laboratory Tests Test 07/28/18 15:15 07/28/18 17:05 07/28/18 19:23 07/29/18 05:45 Ferritin 134.0 Lactate 630 H Dehydrogenase Urine Color STRAW Urine Clarity CLEAR Urine pH 5.0 Urine Specific 1.004 [place] Urine Ketones NEGATIVE Urine Nitrite NEGATIVE Urine Bilirubin NEGATIVE Urine Urobilinogen NEGATIVE Urine Leukocyte NEGATIVE Esterase Urine Hemoglobin NEGATIVE Urine Glucose NEGATIVE Urine Total Protein NEGATIVE Lactic Acid Level 2.7 *H 0.9 Sodium Level 148 H Potassium Level 4.4 Chloride Level 109 Carbon Dioxide Level 26 Anion Gap 13 Blood Urea Nitrogen 21 H Creatinine 0.97 Est Glomerular Filtrat Rate mL/min Glucose Level 117 Calcium Level 8.8 Thyroid Stimulating 0.713 Hormone (TSH) Free Thyroxine 0.92 Test 07/29/18 05:46 White Blood Count 14.4 #H Red Blood Count 3.09 #L Hemoglobin 9.9 #L Hematocrit 30.6 #L Mean Corpuscular 99.0 Volume Mean Corpuscular 32.0 Hemoglobin Mean Corpuscular 32.4 Hemoglobin Concent Red Cell 23.2 #H Distribution Width Platelet Count 309 Mean Platelet Volume 9.9 Immature 0.500 H Granulocytes % Neutrophils % 86.9 H Lymphocytes % 6.7 L Monocytes % 5.8 Eosinophils % 0.0 Basophils % 0.1 Nucleated Red Blood 0.0 Cells % Immature 0.070 H Granulocytes # Neutrophils # 12.5 H Lymphocytes # 1.0 Monocytes # 0.8 Eosinophils # 0.0 Basophils # 0.0 Nucleated Red Blood 0.0 Cells # Exam/Review of Systems Vital Signs Vitals Vital Signs Date Temp Pulse Resp B/P (MAP) Pulse Ox O2 O2 Flow FiO2 Time Delivery Rate 07/29/18 86 12:04 07/29/18 97.5 20 135/61 91 Non 11:38 (85) Rebreather 07/29/18 6.0 08:30 07/29/18 100 07:43 Intake and Output 07/28/18 07/28/18 07/29/18 1515:00 23:00 07:00 IntakeIntake Total 350 ml 1300 ml OutputOutput Total 500 ml 2600 ml BalanceBalance -150 ml -1300 ml Exam Constitutional: alert, oriented Head: normocephalic Neck: supple Respiratory: diminished breath sounds, other (Rhonchi bilaterally) Cardiovascular: regular rate and rhythm Gastrointestinal: soft, non-tender Musculoskeletal: nl extremities to inspection Extremities: normal pulses Neurological: nl mental status Medications Medications Current Medications Vancomycin HCl (Vanco Iv Per Pharmacy) VANCOMYCIN PER PHARMACY PER PROTOCOL XX ; Start 07/28/18 at 17:30 Cefepime HCl 50 ml @ 100 mls/hr Q12 IVPB Last administered on 07/29/18at 08:55; Admin Dose 100 MLS/HR; Start 07/28/18 at 21:00 Ferric Sodium Gluconate Complex 125 mg/Sodium Chloride 110 ml @ 110 mls/hr DAILY@1300 IVPB Last administered on 07/29/18at 13:15; Admin Dose 110 MLS/HR; Start 07/29/18 at 13:00; Stop 08/02/18 at 13:59 Albuterol/ Ipratropium (Duoneb) 3 ml Q6H RESP THERAPY HHN Last administered on 07/29/18at 07:41; Admin Dose 3 ML; Start 07/28/18 at 20:00 Albuterol/ Ipratropium (Duoneb) 3 ml Q2H RESP THERAPY PRN HHN WHEEZING AND SOB; Start 07/28/18 at 17:30 Pantoprazole (Protonix Iv) 40 mg DAILY@06 IV Last administered on 07/29/18at 05:39; Admin Dose 40 MG; Start 07/29/18 at 06:00 Vancomycin HCl 250 ml @ 125 mls/hr Q24H IVPB Last administered on 07/29/18at 08:55; Admin Dose 125 MLS/HR; Start 07/29/18 at 09:00 Apixaban (Eliquis) 5 mg BID PO Last administered on 07/28/18at 22:30; Admin Dose 5 MG; Start 07/28/18 at 21:00 Calcium/Vitamin D (Oyster Shell/ Vit-D (500/200)) 1 tab BID PO Last administered on 07/29/18 08:55; Admin Dose 1 TAB; Start 07/28/18 at 21:00 Clonazepam (Klonopin) 0.5 mg BID PRN PO ANXIETY Last administered on 07/29/18 01:00; Admin Dose 0.5 MG; Start 07/28/18 at 21:00 Clonidine (Catapres) 0.1 mg TID PRN PO ELEVATED BLOOD PRESSURE Last administered on 07/29/18at 10:37; Admin Dose 0.1 MG; Start 07/28/18 at 21:00 Hydromorphone HCl (Dilaudid) 2 mg Q4H PRN PO SEVERE PAIN LEVEL 7-10 Last admi nistered on 07/29/18 08:59; Admin Dose 2 MG; Start 07/28/18 at 21:00 Docusate Sodium (Colace) 100 mg BID PRN PO CONSTIPATION; Start 07/28/18 at 21:00 Gabapentin (Neurontin) 200 mg BID PO Last administered on 07/29/18 08:56; Admin Dose 200 MG; Start 07/28/18 at 21:00 Atorvastatin Calcium (Lipitor) 10 mg HS PO Last administered on 07/28/18 22:31; Admin Dose 10 MG; Start 07/28/18 at 21:00 Metoprolol Tartrate (Lopressor) 25 mg BID PO Last administered on 07/29/18 08:57; Admin Dose 25 MG; Start 07/28/18 at 21:00 Magnesium Hydroxide (Milk Of Mag) 30 ml DAILY PRN PO CONSTIPATION; Start 07/28 at 21:00 Acetaminophen/ Hydrocodone Bitart (Liberty (10/325)) 1 tab Q4H PRN PO MODERATE PAIN LEVEL 4-6 Last administered on 07/28/18 23:22; Admin Dose 1 TAB; Start 07/28/18 at 21:00 Fluoxetine HCl (Prozac) 20 mg DAILY PO Last administered on 07/29/18 08:56; Admin Dose 20 MG; Start 07/29/18 at 09:00 Carisoprodol (Soma) 350 mg BID PRN PO MUSCLE SPASMS; Start 07/28/18 at 21:00 Trazodone HCl (Desyrel) 50 mg HS PRN PO INSOMNIA Last administered on 07/29/18 04:18; Admin Dose 50 MG; Start 07/28/18 at 21:00 Acetaminophen (Tylenol Tab) 650 mg Q6H PRN PO MILD PAIN(1-3)OR ELEVATED TEMP; Start 07/28/18 at 21:00 Ondansetron HCl (Zofran Inj) 4 mg Q6H PRN IV NAUSEA AND/OR VOMITING; Start 07/28/18 at 21:00 Methylprednisolone Sodium Succinate (Solu-Medrol) 40 mg DAILY IV Last administered on 07/29/18 09:10; Admin Dose 40 MG; Start 07/29/18 at 09:00 Ascorbic Acid (Vitamin C) 500 mg TID PO Last administered on 07/29/18 13:15; Admin Dose 500 MG; Start 07/29/18 at 09:00 Furosemide (Lasix) 20 mg BID DIURETICS IV Last administered on 07/29/18 10:08; Admin Dose 20 MG; Start 07/29/18 at 09:00 Estrogens Conjugated (Premarin) 0.45 mg DAILY PO Last administered on 07/29/18 11:28; Admin Dose 0.45 MG; Start 07/29/18 at 11:00 RAMÓN VILLALOBOS Jul 29, 2018 15:11
--- NOTE | 2018-07-29 16:11 | CONS ---
DATE OF ADMISSION: 07/28/2018 DATE OF CONSULTATION: 07/29/2018 TYPE OF CONSULTATION: Infectious Disease. REASON FOR CONSULTATION: Antibiotic management. HISTORY OF PRESENT ILLNESS: Lenora Gaspar is a 73-year-old female who comes in with shortness of b reath and productive cough. Her past problems include: 1. Coronary artery disease diagnosed with cardiac catheterization in 2012. 2. COPD. 3. Hypertension. 4. Paroxysmal atrial fibrillation. 5. Peripheral vascular disease status post PCI. 6. Dyslipidemia. 7. Hypothyroidism. 8. Anxiety and depression. Acutely, the patient developed acute respiratory failure back in 2013 when she was at [facility]. She under went tracheostomy and G-tube placement and was subsequently decannulated. The NG tube was removed. The patient was sent to board and care, was hospitalized at the [facility] in June 2016 after a fall which led to a splenic laceration. She again had trach and G-tube placement, was at [facility]. A few weeks ago, the patient's respiratory status was stable. However, she sustained a fall a nd was taken to [facility], diagnosed with a right hip fracture. She underwe nt open reduction internal fixation, went back to care home facility for recuperation. Yesterd ay, she was seen by Dr. Pack with a cough, shortness of breath and fever. She was noted to be hy poxemic and had to be on 5 liters of oxygen via nasal cannula. Her fever was 100. She refused to go to the hospital this morning on the . The care home facility staff called to say she was getting worse as far as respiratory status. She was started on vancomycin, cefepime along with syste mami steroids and breathing treatment. An x-ray done yesterday did reveal bilateral infiltrates. The patient had leukocytosis. She was sent to the emergency room due to worsening respiratory status. The patient looked pale and weak, was getting short of breath. Initially, she was placed on BiPAP du e to significant hypoxemia. She did not have any headaches, dizziness or syncope, and she was admitt ed to telemetry. The patient does have a history of chronic neuropathic pain and muscle spasm. In [facility] emergency room, white count was 9.3 with 94% neutrophils. BUN and creatinine 26/1.1. Lactic acid 2.7. Chest x-ray revealed bilateral patchy infiltrates. CT angiogram, pulmonary angiogram showed p ulmonary fibrosis and the patient was admitted. She has a history of acute kidney injuries several y ears ago and required dialysis. She has a history of left perinephric hematoma, history of nasal fra cture. She also has a history of pancreatic head mass which was evaluated by Dr. Adler in 2015, ludwig mehta she did have elevated CA19-9. This has not progressed as pancreatic CA would. ALLERGIES: 1. PENICILLIN. 2. TETRACYCLINE. 3. ACETAMINOPHEN. 4. HYDROCODONE. 5. MORPHINE. 6. OXYCODONE. 7. ZOLPIDEM. She takes [place] without any problem. FAMILY HISTORY: Noncontributory. SOCIAL HISTORY: She has heavy history of smoking, quit almost 10 years ago. No alcohol abuse, no dr ug abuse. PHYSICAL EXAMINATION: GENERAL: She is a cachectic-appearing female who is awake, responsive, in no acute distress. VITAL SIGNS: Stable. Currently, afebrile. The patient was put back on a BiPAP. HEENT: Within normal limits. She is now on a nonbreathing mask and then was weaned off nasal cannul a. Oropharynx was deferred due to a nonbreathing mask. NECK: Supple. LYMPH NODES: None palpable. CHEST: Extensive bilateral rales and scattered rhonchi. HEART: Without murmur or gallop. ABDOMEN: Soft, nontender. EXTREMITIES: Without cyanosis, clubbing, or edema. RECTAL AND GENITAL: Deferred. NEUROLOGIC: No focal neurological abnormality. IMPRESSION AND PLAN: Patient has acute hypoxemic respiratory failure due to healthcare-associated pn eumonia. She was therefore started on vancomycin and cefepime. She has bilateral pulmonary fibrosis , COPD, and numerous other problems as outlined. Currently, her white count is 14.4. She has acute hypoxemic respiratory failure on vancomycin and cefepime and for that we are asked to see the patient . Her BUN and creatinine 21/0.97. I would continue her on her current therapy. Blood cultures were ordered, urine ordered. MRSA screen was ordered. The CT angiogram showed moderate pulmonary fibros is. Further evaluation with PET CT may be obtained. Small right multiloculated pleural effusion, mo derate left layering pleural effusion. We will continue her on current regimen. Her blood cultures so far are negative. I will dictate my findings to Dr. Pack; to nurse practitioner, Neida; a nd to Dr. Salazar as well and Dr. Frost. Dictated By: RALEIGH ALVAREZ MD, JD/MARLENY Conf#: [id number] DID#: [id number]
[2018-07-29] MEDS: ATORVASTATIN 10 MG TAB PO SCH (20:29)
[2018-07-29] MEDS: HYDROCODONE/APAP (10/325) TAB PO PRN (23:47)
[2018-07-30] VITALS (12 sets, daily range): BP systolic 103–154; BP diastolic 51–75; PULSE 84–165; RESP 18–23
[2018-07-30] MEDS: ALBUTEROL/IPRATROPIUM (NEB) 3 ML AMP HHN SCH ×4 (02:00→19:38)
[2018-07-30] MEDS: FUROSEMIDE 20 MG INJ IV SCH ×2 (05:06→17:38)
[2018-07-30] MEDS: PANTOPRAZOLE 40 MG INJ IV SCH (05:06)
[2018-07-30] MEDS: HYDROmorphONE 2 MG TAB PO PRN (05:15)
[2018-07-30] MEDS ORDERED: DILTIAZEM 60 MG TAB PO ONE (06:30)
--- NOTE | 2018-07-30 07:53 | RADRPT ---
Echocardiogram Report Patient Name: JATINDER RICHARDSON Gender: Female Date: 1945 Study Date: 29-Jul-2018 Tower Dragline Operator: Milton Contreras RDCS Location: [id number] Ref. Physician: ABDIAS STAPLES Quality: Adequate Procedures: Transthoracic echocardiogram with complete 2D, M-Mode, and doppler examination. Indications: Congestive Heart Failure. 2D/M Mode Doppler Measurement Value Normal Ranges Measurement Value Normal Ranges LVIDd 2D 3.8 3.5 - 5.6 cm AV Peak Chilo 1.3 m/sec LVIDs 2D 2.4 2.1 - 4.1 cm AV Peak PG 7.0 mmHg LVPWd 2D 0.8 0.6 - 1.1 cm LVOT Peak Chilo 1.0 m/sec IVSd 2D 1.2 0.6 - 1.1 cm LVOT Peak PG 4.0 mmHg AoR Diam 2D 2.5 2.0 - 3.7 cm MV E Peak Chilo 1.2 m/sec LA/Ao 2D 2 0 - 1 MV Decel Time 169 msec LA Dimen 2D 4.2 2.3 - 4.0 cm Lat E` Chilo 0.2 m/sec Lateral E/E` 7.3 Med E` Chilo 0.2 m/sec TR Peak Chilo 3.9 m/sec TR Peak PG 61.0 mmHg RVSP 71.0 mmHg RA Pressure 10.0 Findings Left Ventricle: Normal left ventricular systolic function. Normal left ventricular cavity size. Mild concentric left ventricular hypertrophy. Ejection fraction is visually estimated at 55 %. Right Ventricle: Normal right ventricular size. Normal right ventricular systolic function. Left Atrium: There is mild enlargement of left atrium. Right Atrium: The right atrium is normal in size. Mitral Valve: Normal appearance of the mitral valve. Mild mitral valve regurgitation. Aortic Valve: Aortic sclerosis without significant stenosis. Aortic cusps appear mildly calcified. Trileaflet aortic valve. Trace aortic valve regurgitation. Tricuspid Valve: Normal appearance of the tricuspid valve. Estimated peak PA systolic pressure 71 mmHg. There is mild tricuspid regurgitation. Pulmonic Valve: Normal pulmonic valve appearance. Pericardium: Normal pericardium with no significant pericardial effusion. Aorta: Normal aortic root. IVC: Normal size and normal respiratory collapse consistent with normal right atrial pressure. Conclusions Normal left ventricular systolic function. Normal left ventricular cavity size. Mild concentric left ventricular hypertrophy. Ejection fraction is visually estimated at 55 %. There is mild enlargement of left atrium. Normal appearance of the mitral valve. Mild mitral valve regurgitation. Aortic sclerosis without significant stenosis. Aortic cusps appear mildly calcified. Trileaflet aortic valve. Trace aortic valve regurgitation. Normal appearance of the tricuspid valve. Estimated peak PA systolic pressure 71 mmHg. There is mild tricuspid regurgitation. Normal size and normal respiratory collapse consistent with normal right atrial pressure. Electronically Signed By: Jonathan Frost 30-Jul-2018 07:52:27 -0800 Patient Name: JATINDER RICHARDSON Study Date: 29-Jul-2018 [id number]
[2018-07-30] MEDS: CALCIUM/VITAMIN D (500/200) TAB PO SCH ×2 (08:07→22:06)
[2018-07-30] MEDS: ASCORBIC ACID 500 MG TAB PO SCH ×3 (08:07→22:05)
[2018-07-30] MEDS: GABAPENTIN 100 MG CAP PO SCH ×2 (08:08→22:05)
[2018-07-30] MEDS: METOPROLOL 25 MG TAB PO SCH ×2 (08:08→22:06)
[2018-07-30] MEDS: HYDROCODONE/APAP (10/325) TAB PO PRN ×3 (08:09→23:47)
[2018-07-30] MEDS: CEFEPIME 1GM/50 ML (PMX) 50 ML IVPB SCH ×2 (08:09→22:04)
[2018-07-30] MEDS: METHYLPREDNISOLONE 40 MG INJ IV SCH (08:09)
[2018-07-30] MEDS: ESTROGENS CONJUGATED 0.3 MG TAB PO SCH (08:09)
[2018-07-30] MEDS: FLUOXETINE 20 MG CAP PO SCH (08:09)
--- NOTE | 2018-07-30 08:42 | CONS ---
Date/Time of Note Date/Time of Note DATE: 07/30/18 TIME: 08:39 Consult Date/Type/Reason Admit Date/Time Jul 28, 2018 at 18:16 Initial Consult Date 07/28/18 Type of Consultation: cv Requesting Provider: ABDIAS STAPLES MD Subjective Cardiology follow-up progress note Subjective: Discussed with the staff and physicians. Telemetry was reviewed. Patient remains in normal sinus rhythm, since this morning she has converted to atrial fibrillation rapid ventricular response. Patient is still complaint of shortness of breath. No chest pain or pressure to me Objective: General: Elderly female appears older than his stated age on oxygen HEENT: NC/AT. pupils are equal. round. NECK: + JVD. no stridor. CV: Irregularly irregular. systolic murmur; no gallop or rubs. PULM: no wheezing + rhonchi. GI: SOFT, NT, ND, no rebound or guarding Extremity: No significant LE edema. no clubbing. neuro: Awake and alert responds appropriately now Psych: calm rectal: deferred : Deferred EKG was personally within normal sinus rhythm with no evidence of ischemia CT pulmonary angiogram done in the emergency room shows: 1. Moderate pulmonary fibrosis, worse at the bilateral lung apices. Associated mediastinal adenopathy. Underlying mass not entirely excluded. Further evaluation with PET-CT may be obtained. 2. Small right multiloculated pleural effusion. Moderate left layering pleural effusion. 3. Streaky bibasilar opacities compatible with atelectasis or pneumonia. 4. Dilated pulmonary trunk and bilateral pulmonary arteries compatible with sequelae of pulmonary hypertension. 5. Left renal 4 cm hyperdense cyst or mass. Further evaluation with multiphase contrast enhanced CT or MR may be obtained. Echocardiogram was personally reviewed which shows: Normal left ventricular systolic function. Normal left ventricular cavity size. Mild concentric left ventricular hypertrophy. Ejection fraction is visually estimated at 55 %. There is mild enlargement of left atrium. Normal appearance of the mitral valve. Mild mitral valve regurgitation. Aortic sclerosis without significant stenosis. Aortic cusps appear mildly calcified. Trileaflet aortic valve. Trace aortic valve regurgitation. Normal appearance of the tricuspid valve. Estimated peak PA systolic pressure 71 mmHg. There is mild tricuspid regurgitation. Normal size and normal respiratory collapse consistent with normal right atrial pressure. Objective Vital Signs Date Temp Pulse Resp B/P (MAP) Pulse Ox O2 O2 Flow FiO2 Time Delivery Rate 07/30/18 124 08:01 07/30/18 98.0 23 103/53 90 07:34 (70) 07/30/18 15.0 02:00 07/30/18 Non 00:00 Rebreather 07/29/18 100 19:30 Intake and Output 07/29/18 07/29/18 07/30/18 1515:00 23:00 07:00 IntakeIntake Total 50 ml 450 ml 600 ml OutputOutput Total 1400 ml BalanceBalance 50 ml 450 ml -800 ml Results/Medications Result Diagram: 07/30/18 0550 07/30/18 0550 Results 24 hrs Laboratory Tests Test 07/30/18 05:50 07/30/18 07:54 White Blood Count 16.3 H Red Blood Count 3.64 L Hemoglobin 11.5 L Hematocrit 36.5 L Mean Corpuscular Volume 100.3 Mean Corpuscular Hemoglobin 31.6 Mean Corpuscular Hemoglobin Concent 31.5 L Red Cell Distribution Width 22.5 H Platelet Count 356 Mean Platelet Volume 10.2 Immature Granulocytes % 0.400 Neutrophils % 83.2 H Lymphocytes % 10.8 L Monocytes % 5.3 Eosinophils % 0.1 Basophils % 0.2 Nucleated Red Blood Cells % 0.0 Immature Granulocytes # 0.070 H Neutrophils # 13.6 H Lymphocytes # 1.8 Monocytes # 0.9 Eosinophils # 0.0 Basophils # 0.0 Nucleated Red Blood Cells # 0.0 Sodium Level 149 H Potassium Level 3.8 Chloride Level 110 Carbon Dioxide Level 26 Anion Gap 13 Blood Urea Nitrogen 27 H Creatinine 1.05 H Est Glomerular Filtrat Rate mL/min Glucose Level 105 Calcium Level 9.7 Phosphorus Level 3.0 Magnesium Level 2.5 Total Bilirubin 0.2 Direct Bilirubin 0.00 Indirect Bilirubin 0.2 Aspartate Amino Transf (AST/SGOT) 49 H Alanine Aminotransferase (ALT/SGPT) 19 Alkaline Phosphatase 144 #H B-Type Natriuretic Peptide 81327 H Total Protein 7.2 Albumin 3.6 Globulin 3.60 H Albumin/Globulin Ratio 1.00 Lab Scanned Report BLOOD TRANSFUSION Medications Current Medications Vancomycin HCl (Vanco Iv Per Pharmacy) VANCOMYCIN PER PHARMACY PER PROTOCOL XX ; Start 07/28/18 at 17:30 Cefepime HCl 50 ml @ 100 mls/hr Q12 IVPB Last administered on 07/30/18 08:09; Admin Dose 100 MLS/HR; Start 07/28/18 at 21:00 Ferric Sodium Gluconate Complex 125 mg/Sodium Chloride 110 ml @ 110 mls/hr DAILY@1300 IVPB Last administered on 07/29/18 13:15; Admin Dose 110 MLS/HR; Start 07/29/18 at 13:00; Stop 08/02/18 at 13:59 Albuterol/ Ipratropium (Duoneb) 3 ml Q6H RESP THERAPY HHN Last administered on 07/29/18 19:31; Admin Dose 3 ML; Start 07/28/18 at 20:00 Albuterol/ Ipratropium (Duoneb) 3 ml Q2H RESP THERAPY PRN HHN WHEEZING AND SOB; Start 07/28/18 at 17:30 Pantoprazole (Protonix Iv) 40 mg DAILY@06 IV Last administered on 07/30/18 05 :06; Admin Dose 40 MG; Start 07/29/18 at 06:00 Vancomycin HCl 250 ml @ 125 mls/hr Q24H IVPB Last administered on 07/29/18 08:55; Admin Dose 125 MLS/HR; Start 07/29/18 at 09:00 Apixaban (Eliquis) 5 mg BID PO Last administered on 07/28/18 22:30; Admin Dose 5 MG; Start 07/28/18 at 21:00; Status Hold Calcium/Vitamin D (Oyster Shell/ Vit-D (500/200)) 1 tab BID PO Last administered on 07/30/18 08:07; Admin Dose 1 TAB; Start 07/28/18 at 21:00 Clonazepam (Klonopin) 0.5 mg BID PRN PO ANXIETY Last administered on 07/29/18 01:00; Admin Dose 0.5 MG; Start 07/28/18 at 21:00 Clonidine (Catapres) 0.1 mg TID PRN PO ELEVATED BLOOD PRESSURE Last administered on 07/29/18 16:54; Admin Dose 0.1 MG; Start 07/28/18 at 21:00 Hydromorphone HCl (Dilaudid) 2 mg Q4H PRN PO SEVERE PAIN LEVEL 7-10 Last adm inistered on 07/30/18 05:15; Admin Dose 2 MG; Start 07/28/18 at 21:00 Docusate Sodium (Colace) 100 mg BID PRN PO CONSTIPATION; Start 07/28/18 at 21:00 Gabapentin (Neurontin) 200 mg BID PO Last administered on 07/30/18 08:08; Admin Dose 200 MG; Start 07/28/18 at 21:00 Atorvastatin Calcium (Lipitor) 10 mg HS PO Last administered on 07/29/18 20:29; Admin Dose 10 MG; Start 07/28/18 at 21:00 Metoprolol Tartrate (Lopressor) 25 mg BID PO Last administered on 07/30/18 08:08; Admin Dose 25 MG; Start 07/28/18 at 21:00 Magnesium Hydroxide (Milk Of Mag) 30 ml DAILY PRN PO CONSTIPATION; Start 07/08 08/25 at 21:00 Acetaminophen/ Hydrocodone Bitart (Wilmar (10/325)) 1 tab Q4H PRN PO MODERATE PAIN LEVEL 4-6 Last administered on 07/30/18 08:09; Admin Dose 1 TAB; Start 07/28/18 at 21:00 Fluoxetine HCl (Prozac) 20 mg DAILY PO Last administered on 07/30/18 08:09; Admin Dose 20 MG; Start 07/29/18 at 09:00 Carisoprodol (Soma) 350 mg BID PRN PO MUSCLE SPASMS; Start 07/28/18 at 21:00 Trazodone HCl (Desyrel) 50 mg HS PRN PO INSOMNIA Last administered on 07/29/18 20:29; Admin Dose 50 MG; Start 07/28/18 at 21:00 Acetaminophen (Tylenol Tab) 650 mg Q6H PRN PO MILD PAIN(1-3)OR ELEVATED TEMP; Start 07/28/18 at 21:00 Ondansetron HCl (Zofran Inj) 4 mg Q6H PRN IV NAUSEA AND/OR VOMITING; Start 07/28/18 at 21:00 Methylprednisolone Sodium Succinate (Solu-Medrol) 40 mg DAILY IV Last administered on 07/30/18 08:09; Admin Dose 40 MG; Start 07/29/18 at 09:00 Ascorbic Acid (Vitamin C) 500 mg TID PO Last administered on 07/30/18 08:07; Admin Dose 500 MG; Start 07/29/18 at 09:00 Furosemide (Lasix) 20 mg BID DIURETICS IV Last administered on 07/30/18at 05:06; Admin Dose 20 MG; Start 07/29/18 at 09:00 Estrogens Conjugated (Premarin) 0.45 mg DAILY PO Last administered on 07/30/18at 08:09; Admin Dose 0.45 MG; Start 07/29/18 at 11:00 Lorazepam (Ativan) 0.5 mg Q6H PRN PO ANXIETY; Start 07/29/18 at 20:30 Guaifenesin/ Dextromethorphan (Robitussin Dm Liquid Cup) 5 ml Q4H PRN PO COUGH; Start 07/29/18 at 20:30 Dextrose 1,000 ml @ 50 mls/hr Q20H IV ; Start 07/30/18 at 08:30; Status UNV Assessment/Plan Chief Complaint/Hosp Course 1. Hypoxemic respiratory failure 2. Pulmonary fibrosis 3. Elevated BNP most likely secondary to above and significant pulmonary hy pertension 4. paroxysmal atrial fibrillation 5. Encephalopathy 6. Most likely pneumonia 7. History of recent fall and hip fracture status post surgery 8. Anemia 9. Lactic acidosis 10. Hypertension 11. Pulmonary hypertension Recommendations: Off the aspirin since the patient is already on Eliquis Low-dose diuretics will be continued and adjusted as needed. Chest ultrasound did not show significant effusion Antibiotic management as per internal medicine We will continue to monitor on telemetry Correct electrolytes as needed Transfusions as needed I have stopped amiodarone given concern about her severe pulmonary disease and pulmonary fibrosis. We will start her on Multitak. I would also start her on Cardizem IV as well as digoxin to control the heart rate better. TSH is within normal limits Thank you for his referral. We will continue to follow along with you DAYRON ROGERS MD [facility] DAYRON ROGERS MD Jul 30, 2018 08:42
[2018-07-30] MEDS ORDERED: DIGOXIN 500 MCG INJ IV ONE (09:00)
[2018-07-30] MEDS ORDERED: DILTIAZEM-D5W 125MG/125ML DRIP 125 ML IV SCH (09:00)
[2018-07-30] MEDS: VANCOMYCIN 1 GM 250 ML IVPB SCH (09:05)
[2018-07-30] MEDS: DEXTROSE 5% 1,000 ML IV SCH (09:40)
--- NOTE | 2018-07-30 11:18 | PN ---
DATE: 07/30/2018 SUBJECTIVE: The patient remains in serious condition, continues to have episodes of hemoptysis. The patient remains on nonrebreather. Urinary output has been adequate. No other events noted. OBJECTIVE: VITAL SIGNS: Blood pressure is 103/53, respiration 23, pulse 142, temperature 98.0. HEENT: Head is normocephalic. NECK: Supple. HEART: Irregularly irregular. LUNGS: Show diminished breath sounds at the base. ABDOMEN: Soft, nontender to palpation without rebound or guarding. EXTREMITIES: Negative for clubbing, cyanosis, no edema. DERMATOLOGIC: No rashes. MUSCULOSKELETAL: No joint effusion. NEUROLOGIC: No change in exam. MEDICATIONS: Reviewed. LABORATORY DATA: Shows sodium 149, potassium 3.8, chloride 110, BUN 27, creatinine 1.05. White coun t 16.3, hemoglobin 11.5, platelet count is 356. ASSESSMENT AND PLAN: 1. Nonoliguric acute kidney injury with previously unknown baseline creatinine. Etiology of acute k idney injury is secondary to hemodynamics. Renal function has been fluctuating. Continue to monitor . 2. Hypernatremia. The patient has free water deficit approximately 2.5 liters. Will start the oriana ent on D5 water at 50 mL an hour and monitor sodium levels closely. 3. Anemia with iron deficiency. The patient is on IV iron. Continue to monitor. Transfuse PRBCs a s needed. 4. Mineral bone disorder, monitor calcium and phosphorus levels. 5. Acute hypoxemic respiratory failure secondary to pneumonia, pulmonary fibrosis. Continue current antibiotic steroids, nebulizers. Continue face mask. 6. Pleural effusion. Continue to monitor. 7. Hypertension. Continue clonidine. Will defer KATALINA inhibitor at this time. 8. Encephalopathy, etiology toxic metabolic. 9. Anxiety and depression. Continue medical management. 10. Atrial fibrillation. The patient is currently in rapid rate. Continue medical management, foll owup with cardiology. 11. History of peripheral arterial disease. 12. History of pancreatic head mass. 13. Hemoptysis. Etiology is felt to be secondary to pneumonia. Continue to monitor. Dictated By: GENEVIEVE BERNSTEIN/NTS Conf#: [id number] DID#: [id number] CC: ABDIAS STAPLES MD;*EndCC*
[2018-07-30] MEDS: DRONEDARONE HYDROCHLORIDE 400 MG TAB PO SCH ×2 (12:12→17:38)
[2018-07-30] MEDS: SOD FERRIC GLUC COMPLX 125 MG in SOD CHLORIDE 0.9% 100 ML IVPB SCH (12:12)
--- NOTE | 2018-07-30 15:12 | CONS ---
Assessment/Plan Assessment/Plan Hospital Course (Demo Recall) No acute changes overnight patient is alert looks comfortable on facemask. She is significantly short of breath with conversation however in no distress WBC 16.3 H&H 11.5 and 36.5 platelets 356 neutrophils 83.2 BUN 27 creatinine 1.05 Microbiology: Blood culture growing gram-positive cocci in clusters, influenza swab negative, urine culture negative MRSA swab negative CT of the chest on admission revealed moderate pulmonary fibrosis first at the bilateral lung apices. Associated mediastinal adenopathy. Underlying mass not entirely excluded. Small right multiple loculated pleural effusion. Left renal 4 cm hyperdense cyst or mass dilated pulmonary trunk and bilateral pulmonary art eries compatible with sequela of pulmonary hypertension Antimicrobials: Vancomycin, cefepime Allergies: Penicillin, tetracycline Physical examination: This is a fragile chronically ill-appearing wasted elderly woman who is awake in no distress. Head atraumatic normocephalic sclera nonicteric. Neck is supple. Chest rise symmetrical breath sounds with bilateral rhonchi. Heart: S1-S2. Abdomen soft bowel sounds present extremities without cyanosis. Assessment: 1. Severe sepsis with gram-positive cocci bacteremia 2. Acute on chronic respiratory failure 3. Healthcare associated pneumonia, possibly strep 4. Chronic pulmonary fibrosis 5. Peripheral arterial disease status post stent 6. Pancreatic head mass, patient is following with a specialist yearly 7. Recent right hip fracture status post surgical intervention Plan: Patient is on appropriate antibiotics, 2D echo on admission revealed no vegetations, will repeat blood cultures, consider pulmonary evaluation Consultation Date/Type/Reason Admit Date/Time Jul 28, 2018 at 18:16 Initial Consult Date 07/28/18 Type of Consult id Requesting Provider: ABDIAS STAPLES MD Date/Time of Note DATE: 07/30/18 TIME: 15:08 Exam/Review of Systems Exam Vitals Vital Signs Date Temp Pulse Resp B/P (MAP) Pulse Ox O2 O2 Flow FiO2 Time Delivery Rate 07/30/18 92 12:01 07/30/18 97.8 22 104/51 96 Mask 11:47 (68) 07/30/18 15.0 08:00 07/29/18 100 19:30 Intake and Output 07/29/18 07/29/18 07/30/18 1515:00 23:00 07:00 IntakeIntake Total 50 ml 450 ml 600 ml OutputOutput Total 1400 ml BalanceBalance 50 ml 450 ml -800 ml Results Result Diagram: 07/30/18 0550 07/30/18 0550 Results 24hrs Laboratory Tests Test 07/30/18 05:50 07/30/18 07:54 White Blood Count 16.3 H Red Blood Count 3.64 L Hemoglobin 11.5 L Hematocrit 36.5 L Mean Corpuscular Volume 100.3 Mean Corpuscular Hemoglobin 31.6 Mean Corpuscular Hemoglobin Concent 31.5 L Red Cell Distribution Width 22.5 H Platelet Count 356 Mean Platelet Volume 10.2 Immature Granulocytes % 0.400 Neutrophils % 83.2 H Lymphocytes % 10.8 L Monocytes % 5.3 Eosinophils % 0.1 Basophils % 0.2 Nucleated Red Blood Cells % 0.0 Immature Granulocytes # 0.070 H Neutrophils # 13.6 H Lymphocytes # 1.8 Monocytes # 0.9 Eosinophils # 0.0 Basophils # 0.0 Nucleated Red Blood Cells # 0.0 Sodium Level 149 H Potassium Level 3.8 Chloride Level 110 Carbon Dioxide Level 26 Anion Gap 13 Blood Urea Nitrogen 27 H Creatinine 1.05 H Est Glomerular Filtrat Rate mL/min Glucose Level 105 Calcium Level 9.7 Phosphorus Level 3.0 Magnesium Level 2.5 Total Bilirubin 0.2 Direct Bilirubin 0.00 Indirect Bilirubin 0.2 Aspartate Amino Transf (AST/SGOT) 49 H Alanine Aminotransferase (ALT/SGPT) 19 Alkaline Phosphatase 144 #H B-Type Natriuretic Peptide 27441 H Total Protein 7.2 Albumin 3.6 Globulin 3.60 H Albumin/Globulin Ratio 1.00 Lab Scanned Report BLOOD TRANSFUSION ANDREW SMITH NP Jul 30, 2018 15:12
--- NOTE | 2018-07-30 17:03 | PN ---
Date/Time of Note Date/Time of Note DATE: 07/30/18 TIME: 16:51 Assessment/Plan VTE [place]axis [place] [facility] [place] risk: 14 [place] [facility] [place] Yes Pharmacological prophylaxis: NA/contraindicated Pharm contraindication: bleeding Lines/Catheters IV Catheter Type (from [facility]): Saline Lock Urinary Cath still in place: Yes Reason Cath still needed: urinary retention Assessment/Plan Hospital Course Patient with atrial fibrillation with rapid ventricular response, started on Cardizem drip currently converted to sinus rhythm. Patient continues on nonrebreather mask 15 L. Patient is awake alert communicative. No nosebleed today. Assessment/Plan - Anemia of acute blood loss secondary to nosebleed, status post blood transfusion, continue to monitor hemoglobin and hematocrit. Hold aspirin and Eliquis for now. - Acute hypoxemic respiratory failure due to healthcare-acquired pneumonia. Continue vancomycin and cefepime. Continue breathing treatment and systemic steroids. Dr. Oro from pulmonary standpoint. - Sepsis with gram-positive bacteremia. Continue antibiotics per ID. Dr. Brown is following in infection disease consultation. - Bilateral pulmonary fibrosis. Continue supplemental oxygen and symptomatic treatment with steroids. - Chronic obstructive pulmonary disease. Continue DuoNeb and steroids. - Nonobstructive coronary artery disease as per cardiac catheterization in 2013. Dr. Frost is following from cardiac standpoint. - Paroxysmal atrial fibrillation. The patient remained in sinus rhythm. Continue amiodarone and metoprolol. - Hypertension. Continue metoprolol and Lasix. p.r.n. clonidine. - Peripheral artery disease, status post stent. - Dyslipidemia. Continue Lipitor. - MARQUES, Dr. Salazar from nephrology standpoint. - Recent right hip fracture, status post surgery. - Pancreatic head mass. As per patient, she has been going to a specialist every year for followup. - Anxiety and depression, continue Klonopin and Prozac. Further recommendations based on clinical course. Plan of care discussed with Dr. Pack. Result Diagram: 07/30/18 0550 07/30/18 0550 Results 24hrs Laboratory Tests Test 07/30/18 05:50 07/30/18 07:54 White Blood Count 16.3 H Red Blood Count 3.64 L Hemoglobin 11.5 L Hematocrit 36.5 L Mean Corpuscular Volume 100.3 Mean Corpuscular Hemoglobin 31.6 Mean Corpuscular Hemoglobin Concent 31.5 L Red Cell Distribution Width 22.5 H Platelet Count 356 Mean Platelet Volume 10.2 Immature Granulocytes % 0.400 Neutrophils % 83.2 H Lymphocytes % 10.8 L Monocytes % 5.3 Eosinophils % 0.1 Basophils % 0.2 Nucleated Red Blood Cells % 0.0 Immature Granulocytes # 0.070 H Neutrophils # 13.6 H Lymphocytes # 1.8 Monocytes # 0.9 Eosinophils # 0.0 Basophils # 0.0 Nucleated Red Blood Cells # 0.0 Sodium Level 149 H Potassium Level 3.8 Chloride Level 110 Carbon Dioxide Level 26 Anion Gap 13 Blood Urea Nitrogen 27 H Creatinine 1.05 H Est Glomerular Filtrat Rate mL/min Glucose Level 105 Calcium Level 9.7 Phosphorus Level 3.0 Magnesium Level 2.5 Total Bilirubin 0.2 Direct Bilirubin 0.00 Indirect Bilirubin 0.2 Aspartate Amino Transf (AST/SGOT) 49 H Alanine Aminotransferase (ALT/SGPT) 19 Alkaline Phosphatase 144 #H B-Type Natriuretic Peptide 11822 H Total Protein 7.2 Albumin 3.6 Globulin 3.60 H Albumin/Globulin Ratio 1.00 Lab Scanned Report BLOOD TRANSFUSION Exam/Review of Systems Exam Vitals Constitutional: alert, oriented Respiratory: diminished breath sounds, other (Rhonchi bilaterally) Cardiovascular: regular rate and rhythm Gastrointestinal: soft, non-tender Musculoskeletal: nl extremities to inspection Extremities: normal pulses Neurological: nl mental status Vital Signs Date Temp Pulse Resp B/P (MAP) Pulse Ox O2 O2 Flow FiO2 Time Delivery Rate 07/30/18 101 16:01 07/30/18 96.6 21 126/56 96 Mask 15:34 (79) 07/30/18 15.0 100 14:15 Intake and Output 07/29/18 07/29/18 07/30/18 1515:00 23:00 07:00 IntakeIntake Total 50 ml 450 ml 600 ml OutputOutput Total 1400 ml BalanceBalance 50 ml 450 ml -800 ml Results Results 24hrs Laboratory Tests Test 07/30/18 05:50 07/30/18 07:54 White Blood Count 16.3 H Red Blood Count 3.64 L Hemoglobin 11.5 L Hematocrit 36.5 L Mean Corpuscular Volume 100.3 Mean Corpuscular Hemoglobin 31.6 Mean Corpuscular Hemoglobin Concent 31.5 L Red Cell Distribution Width 22.5 H Platelet Count 356 Mean Platelet Volume 10.2 Immature Granulocytes % 0.400 Neutrophils % 83.2 H Lymphocytes % 10.8 L Monocytes % 5.3 Eosinophils % 0.1 Basophils % 0.2 Nucleated Red Blood Cells % 0.0 Immature Granulocytes # 0.070 H Neutrophils # 13.6 H Lymphocytes # 1.8 Monocytes # 0.9 Eosinophils # 0.0 Basophils # 0.0 Nucleated Red Blood Cells # 0.0 Sodium Level 149 H Potassium Level 3.8 Chloride Level 110 Carbon Dioxide Level 26 Anion Gap 13 Blood Urea Nitrogen 27 H Creatinine 1.05 H Est Glomerular Filtrat Rate mL/min Glucose Level 105 Calcium Level 9.7 Phosphorus Level 3.0 Magnesium Level 2.5 Total Bilirubin 0.2 Direct Bilirubin 0.00 Indirect Bilirubin 0.2 Aspartate Amino Transf (AST/SGOT) 49 H Alanine Aminotransferase (ALT/SGPT) 19 Alkaline Phosphatase 144 #H B-Type Natriuretic Peptide 12201 H Total Protein 7.2 Albumin 3.6 Globulin 3.60 H Albumin/Globulin Ratio 1.00 Lab Scanned Report BLOOD TRANSFUSION RAMÓN VILLALOBOS Jul 30, 2018 17:02
[2018-07-30] MEDS: ATORVASTATIN 10 MG TAB PO SCH (22:04)
[2018-07-30] MEDS: LORAZEPAM 0.5 MG TAB PO PRN (22:40)
[2018-07-30] MEDS: GUAIFENESIN/DM 5ML CUP PO PRN (23:47)
[2018-07-31] VITALS (10 sets, daily range): BP systolic 108–170; BP diastolic 57–78; PULSE 69–110; RESP 17–22
[2018-07-31] MEDS: ALBUTEROL/IPRATROPIUM (NEB) 3 ML AMP HHN SCH ×4 (01:23→19:31)
[2018-07-31] MEDS: HYDROCODONE/APAP (10/325) TAB PO PRN ×4 (04:17→21:34)
[2018-07-31] MEDS: DEXTROSE 5% 1,000 ML IV SCH ×2 (04:30→17:27)
[2018-07-31] MEDS: GUAIFENESIN/DM 5ML CUP PO PRN (04:31)
[2018-07-31] MEDS: PANTOPRAZOLE 40 MG INJ IV SCH (06:54)
[2018-07-31] MEDS: FUROSEMIDE 20 MG INJ IV SCH ×2 (06:55→17:27)
--- NOTE | 2018-07-31 07:57 | CONS ---
Consult Date/Type/Reason Admit Date/Time Jul 28, 2018 at 18:16 Initial Consult Date 07/28/18 Type of Consultation: cv Requesting Provider: ABDIAS STAPLES MD Date/Time of Note DATE: 07/31/18 TIME: 07:55 Subjective Cardiology follow-up progress note Subjective: Discussed with the staff and physicians. Telemetry was reviewed. Patient is converted back to normal sinus rhythm now Patient is still complaint of shortness of breath but appears to be significant improving now. No chest pain or pressure to me Objective: General: Elderly female appears older than his stated age on oxygen HEENT: NC/AT. pupils are equal. round. NECK: + JVD. no stridor. CV regular rate and rhythm systolic murmur; no gallop or rubs. PULM: no wheezing + rhonchi. GI: SOFT, NT, ND, no rebound or guarding Extremity: No significant LE edema. no clubbing. neuro: Awake and alert responds appropriately now Psych: calm rectal: deferred : Deferred EKG was personally within normal sinus rhythm with no evidence of ischemia CT pulmonary angiogram done in the emergency room shows: 1. Moderate pulmonary fibrosis, worse at the bilateral lung apices. Associated mediastinal adenopathy. Underlying mass not entirely excluded. Further evaluation with PET-CT may be obtained. 2. Small right multiloculated pleural effusion. Moderate left layering pleural effusion. 3. Streaky bibasilar opacities compatible with atelectasis or pneumonia. 4. Dilated pulmonary trunk and bilateral pulmonary arteries compatible with sequelae of pulmonary hypertension. 5. Left renal 4 cm hyperdense cyst or mass. Further evaluation with multiphase contrast enhanced CT or MR may be obtained. Echocardiogram was personally reviewed which shows: Normal left ventricular systolic function. Normal left ventricular cavity size. Mild concentric left ventricular hypertrophy. Ejection fraction is visually estimated at 55 %. There is mild enlargement of left atrium. Normal appearance of the mitral valve. Mild mitral valve regurgitation. Aortic sclerosis without significant stenosis. Aortic cusps appear mildly calcified. Trileaflet aortic valve. Trace aortic valve regurgitation. Normal appearance of the tricuspid valve. Estimated peak PA systolic pressure 71 mmHg. There is mild tricuspid regurgitation. Normal size and normal respiratory collapse consistent with normal right atrial pressure. Objective Vitals Vital Signs Date Temp Pulse Resp B/P (MAP) Pulse Ox O2 O2 Flow FiO2 Time Delivery Rate 07/31/18 97.6 83 20 136/62 91 Mask 07:33 (86) 07/31/18 15.0 01:23 07/30/18 100 14:15 Intake and Output 07/30/18 07/30/18 07/31/18 1515:00 23:00 07:00 IntakeIntake Total 300 ml 1110 ml 80 ml OutputOutput Total 1500 ml BalanceBalance 300 ml -390 ml 80 ml Results/Medications Result Diagram: 07/31/18 0545 07/31/18 0545 Results 24 hrs Laboratory Tests Test 07/31/18 05:45 07/31/18 05:46 White Blood Count 14.8 H Red Blood Count 2.84 #L Hemoglobin 8.8 #L Hematocrit 28.8 #L Mean Corpuscular Volume 101.4 H Mean Corpuscular Hemoglobin 31.0 Mean Corpuscular Hemoglobin Concent 30.6 L Red Cell Distribution Width 21.1 H Platelet Count 274 # Mean Platelet Volume 10.2 Immature Granulocytes % 0.700 H Neutrophils % 84.1 H Lymphocytes % 10.0 L Monocytes % 5.1 Eosinophils % 0.0 Basophils % 0.1 Nucleated Red Blood Cells % 0.0 Immature Granulocytes # 0.110 H Neutrophils # 12.4 H Lymphocytes # 1.5 Monocytes # 0.8 Eosinophils # 0.0 Basophils # 0.0 Nucleated Red Blood Cells # 0.0 Sodium Level 145 H Potassium Level 3.9 Chloride Level 108 Carbon Dioxide Level 30 Anion Gap 7 Blood Urea Nitrogen 31 H Creatinine 1.04 H Est Glomerular Filtrat Rate mL/min Glucose Level 122 Calcium Level 8.9 Total Bilirubin 0.1 L Direct Bilirubin 0.00 Indirect Bilirubin 0.1 Aspartate Amino Transf (AST/SGOT) 40 Alanine Aminotransferase (ALT/SGPT) 27 Alkaline Phosphatase 96 Total Protein 5.8 #L Albumin 2.9 L Globulin 2.90 Albumin/Globulin Ratio 1.00 Phosphorus Level 2.7 Magnesium Level 2.3 Home Meds Reported Medications Ondansetron Hcl* (Zofran*) 8 Mg Tablet, 8 MG PO Q6H PRN for NAUSEA AND OR VOMITING, TAB 07/28/18 Guaifenesin (Xpect) 400 Mg Tablet, 400 MG PO Q12, TAB 07/28/18 Acetaminophen* (Acetaminophen*) 650 Mg Tablet, 650 MG PO Q6H PRN for PAIN AND OR ELEVATED TEMP, #30 TAB 07/28/18 Trazodone Hcl* (Trazodone Hcl*) 50 Mg Tablet, 50 MG PO QHS, #30 TAB 07/28/18 Carisoprodol* (Carisoprodol*) 350 Mg Tablet, 350 MG PO BID PRN for MUSCLE SPASMS, TAB 07/28/18 Montelukast Sodium* (Singulair*) 10 Mg Tablet, 10 MG PO QHS, #30 TAB 07/28/18 Sennosides* (Senna Lax*) 8.6 Mg Tablet, 2 TAB PO QHS, TAB 07/28/18 Fluoxetine Hcl* (Prozac*) 20 Mg Capsule, 20 MG PO DAILY, CAP 07/28/18 Promethazine Hcl* (Phenergan* Liq) 6.25 Mg/5 Ml Syrup, 12.5 MG PO Q6H PRN for COUGH, ML 07/28/18 Lansoprazole* (Lansoprazole*) 30 Mg Capsule.dr, 30 MG PO DAILY, CAP 07/28/18 Vit C/E/Zn/Coppr/Lutein/Zeaxan (Preservision Areds 2 Softgel) 1 Each Capsule, 2 EACH PO DAILY, CAP 07/28/18 Prednisone* (Prednisone*) 20 Mg Tab, 40 MG PO DAILY, TAB 07/28/18 Chlorhexidine Gluconate (Peridex) 473 Ml Mouthwash, 15 ML MM BID, BOTTLE 07/28/18 [place]-3 Acid Ethyl Esters (Lovaza) 1 Gm Capsule, 2 GM PO DAILY, CAP 07/28/18 Hydrocodone/Acetaminophen (Ona 10-325 Tablet) 1 Each Tablet, 1 EACH PO Q4 PRN for SEVERE PAIN LEVEL 7-10, TAB 07/28/18 Multivitamins* (Theragran*) 1 Tab Tab, 1 TAB PO DAILY, TAB 07/28/18 Guaifenesin (Guaifenesin) 600 Mg Tablet.sa, 600 MG PO BID, TAB 07/28/18 Magnesium Hydroxide* (Milk Of Magnesia*) 400 Mg/5 Ml Oral.susp, 30 ML PO DAILY PRN for CHEST PAIN, ML 07/28/18 Metoprolol Tartrate* (Lopressor*) 50 Mg Tab, 50 MG PO DAILY, #60 TAB HOLD FOR SBP<110 OR HR<60 07/28/18 Atorvastatin Calcium (Atorvastatin Calcium) 10 Mg Tablet, 10 MG PO QHS, #30 TAB 07/28/18 Lidocaine (Lidocaine) 5 Gm Cream..g., 5 GM TP DAILY 07/28/18 Furosemide* (Lasix*) 20 Mg Tablet, 20 MG PO DAILY, TAB 07/28/18 Lactobacillus Rhamnosus* (Culturelle*) 1 Each Cap.sprink, 1 CAP PO DAILY, CAP 07/28/18 Ipratropium-Albuterol (Ipratropium-Albuterol) 0.5-3 Mg/3 Ml Ampul.neb, 3 ML INHALATION Q4 PRN for SHORTNESS OF BREATH, #30 VIAL 07/28/18 Gabapentin* (Gabapentin*) 100 Mg Capsule, 200 MG PO BID, #180 CAP 07/28/18 Folic Acid* (Folic Acid*) 1 Mg Tablet, 1 MG PO DAILY, TAB 07/28/18 Ferrous Sulfate* (Ferrous Sulfate*) 325 Mg Tabec, 325 MG PO TID, TAB 07/28/18 Estrogens Conjugated* (Premarin*) 0.45 Mg Tablet, 0.45 MG PO DAILY, TAB 07/28/18 Bisacodyl (Dulcolax) 10 Mg Supp.rect, 10 MG RC Q48, SUPP.RECT 07/28/18 Docusate Sodium* (Colace*) 100 Mg Capsule, 100 MG PO QHS PRN for CONSTIPATION, #60 CAP 07/28/18 Hydromorphone Hcl* (Dilaudid*) 2 Mg Tablet, 2 MG PO Q6H PRN for SEVERE PAIN Lj SANTOSEL 7-10, TAB 07/28/18 Cyanocobalamin* (Vitamin B12*) 500 Mcg Tab, 500 MCG PO DAILY, TAB 07/28/18 Clonidine Hcl* (Clonidine Hcl*) 0.1 Mg Tab, 0.1 MG PO Q8, TAB 07/28/18 Clonazepam* (Clonazepam*) 0.5 Mg Tablet, 0.5 MG PO BID PRN for ANXIETY, TAB 07/28/18 Calcium Carbonate/Vitamin D3 (Oysco 500+D Tablet) 1 Each Tablet, 1 EACH PO BID, TAB 07/28/18 Fluticasone/Vilanterol (Breo Ellipta 200-25 Mcg INH) 1 Each Blst.w.dev, 1 PUFF INHALATION DAILY, #1 INHALER 07/28/18 Lorazepam* (Lorazepam*) 0.5 Mg Tablet, 0.5 MG PO Q6 PRN for ANXIETY, TAB 07/28/18 Diphenhydramine Hcl* (Benadryl*) 25 Mg Cap, 25 MG PO Q8 PRN for PRN, CAP 07/28/18 Aspirin* (Aspirin* Chew) 81 Mg Tab.chew, 81 MG PO DAILY, TAB.CHEW 07/28/18 Ascorbic Acid* (Vitamin C*) 500 Mg Capsule.sa, 500 MG PO TID, CAP 07/28/18 Apixaban* (Eliquis*) 5 Mg Tablet, 5 MG PO BID, TAB 07/28/18 Hydrocortisone Acetate (Anusol-Hc) 25 Mg Supp.rect, 25 MG [place] BID PRN for CONSTIPATION, SUPP.RECT 07/28/18 Amiodarone Hcl* (Amiodarone Hcl*) 200 Mg Tablet, 200 MG PO BID, #30 TAB HOLD FOR SBP<110 OR HR<60 07/28/18 Discontinued Reported Medications Potassium Chloride* (KCl*) 40 Meq/30 Ml Soln, 40 MEQ PO DAILY, MEQ 07/28/18 Insulin Human Regular (Novolin-R) 100 Unit/Ml Soln, 0 SC AC MEALS AND BEDTIME SLIDING SCALE 03/22/13 Nitroglycerin* (Nitroglycerin* SL) 0.4 Mg Tab.subl, 0.4 MG SL Q5MIN PRN 03/22/13 Morphine Sulfate* (Morphine*) 2 Mg/1 Ml Cartridge, 2 MG IV Q4 03/22/13 Ipratropium [place]* (Atrovent*) 2.5 Ml Nebu, 0.5 MG NEB Q4 03/22/13 Albuterol Sulfate* (Proventil* Neb) 3 Ml Nebu, 2.5 MG IH Q4 03/22/13 Ondansetron Hcl/Pf (Zofran 4 Mg/2 Ml Vial) 4 Mg/2 Ml Vial, 4 MG IV Q4 03/22/13 Metoprolol Tartrate* (Lopressor* Inj) 5 Mg/5 Ml Ampul, 2.5 MG IV 03/22/13 Loperamide Hcl* (Anti-Diarrhea*) 2 Mg Tablet, 2 MG PO 03/22/13 Acetaminophen* (Acetaminophen*) 325 Mg Tablet, 650 MG PO Q6 PRN 03/22/13 [Acetylcysteine ] No Conflict Check, 600 MG ODT Q12 03/22/13 Acetylcysteine (ACETYLCYSTEINE) 200 Mg/1 Ml Vial, 600 MG IV 03/22/13 Pantoprazole* (Pantoprazole*) 40 Mg Tablet.dr, 40 MG PO 03/22/13 Amiodarone Hcl* (Amiodarone Hcl*) 200 Mg Tablet, 200 MG PO Q12 03/22/13 Isosorbide Mononitrate (Isosorbide Mononitrate) 20 Mg Tablet, 60 MG PO DAILY 03/22/13 Carvedilol* (Carvedilol*) 6.25 Mg Tablet, 6.25 MG PO Q12 03/22/13 [Potassium Cl] No Conflict Check, 40 MEQ PO DAILY 03/22/13 Fluoxetine Hcl* (Fluoxetine Hcl*) 20 Mg Capsule, 2040 MG PO BID 03/22/13 Thyroid,Pork (DEPARTMENT OF SOCIOLOGY CHAIR THYROID) 60 Mg Tablet, 120 MG PO BID 03/22/13 Digoxin (Lanoxin) 0.25 Mg/5 Ml Solution, 0.125 MG PO DAILY 03/22/13 Clopidogrel Bisulfate (Clopidogrel) 75 Mg Tablet, 75 MG PO DAILY 03/22/13 Simvastatin (Simvastatin) 20 Mg Tablet, 20 MG PO HS 03/22/13 Aspirin (Aspirin) 81 Mg Chew, 81 MG PO DAILY 03/22/13 Medications Current Medications Vancomycin HCl (Vanco Iv Per Pharmacy) VANCOMYCIN PER PHARMACY PER PROTOCOL XX ; Start 07/28/18 at 17:30 Cefepime HCl 50 ml @ 100 mls/hr Q12 IVPB Last administered on 07/30/18at 22:04; Admin Dose 100 MLS/HR; Start 07/28/18 at 21:00 Ferric Sodium Gluconate Complex 125 mg/Sodium Chloride 110 ml @ 110 mls/hr DAILY@1300 IVPB Last administered on 07/30/18at 12:12; Admin Dose 110 MLS/HR; Start 07/29/18 at 13:00; Stop 08/02/18 at 13:59 Albuterol/ Ipratropium (Duoneb) 3 ml Q6H RESP THERAPY HHN Last administered on 07/31/18at 01:23; Admin Dose 3 ML; Start 07/28/18 at 20:00 Albuterol/ Ipratropium (Duoneb) 3 ml Q2H RESP THERAPY PRN HHN WHEEZING AND SOB; Start 07/28/18 at 17:30 Pantoprazole (Protonix Iv) 40 mg DAILY@06 IV Last administered on 07/31/18 06:54; Admin Dose 40 MG; Start 07/29/18 at 06:00 Vancomycin HCl 250 ml @ 125 mls/hr Q24H IVPB Last administered on 07/30/18 09:05; Admin Dose 125 MLS/HR; Start 07/29/18 at 09:00 Apixaban (Eliquis) 5 mg BID PO Last administered on 07/28/18 22:30; Admin Dose 5 MG; Start 07/28/18 at 21:00; Status Hold Calcium/Vitamin D (Oyster Shell/ Vit-D (500/200)) 1 tab BID PO Last administered on 07/30/18 22:06; Admin Dose 1 TAB; Start 07/28/18 at 21:00 Clonazepam (Klonopin) 0.5 mg BID PRN PO ANXIETY Last administered on 07/29/18 01:00; Admin Dose 0.5 MG; Start 07/28/18 at 21:00 Clonidine (Catapres) 0.1 mg TID PRN PO ELEVATED BLOOD PRESSURE Last administered on 07/29/18 16:54; Admin Dose 0.1 MG; Start 07/28/18 at 21:00 Hydromorphone HCl (Dilaudid) 2 mg Q4H PRN PO SEVERE PAIN LEVEL 7-10 Last administered on 07/30/18at 05:15; Admin Dose 2 MG; Start 07/28/18 at 21:00 Docusate Sodium (Colace) 100 mg BID PRN PO CONSTIPATION; Start 07/28/18 at 21:00 Gabapentin (Neurontin) 200 mg BID PO Last administered on 07/30/18 22:05; Admin Dose 200 MG; Start 07/28/18 at 21:00 Atorvastatin Calcium (Lipitor) 10 mg HS PO Last administered on 07/30/18 22:04; Admin Dose 10 MG; Start 07/28/18 at 21:00 Metoprolol Tartrate (Lopressor) 25 mg BID PO Last administered on 07/30/18 22:06; Admin Dose 25 MG; Start 07/28/18 at 21:00 Magnesium Hydroxide (Milk Of Mag) 30 ml DAILY PRN PO CONSTIPATION; Start 07/28/18 at 21:00 Acetaminophen/ Hydrocodone Bitart (Ona (10/325)) 1 tab Q4H PRN PO MODERATE PAIN LEVEL 4-6 Last administered on 07/31/18 04:17; Admin Dose 1 TAB; Start 07/28/18 at 21:00 Fluoxetine HCl (Prozac) 20 mg DAILY PO Last administered on 07/30/18 08:09; Admin Dose 20 MG; Start 07/29/18 at 09:00 Carisoprodol (Soma) 350 mg BID PRN PO MUSCLE SPASMS; Start 07/28/18 at 21:00 Trazodone HCl (Desyrel) 50 mg HS PRN PO INSOMNIA Last administered on 07/29/18 20:29; Admin Dose 50 MG; Start 07/28/18 at 21:00 Acetaminophen (Tylenol Tab) 650 mg Q6H PRN PO MILD PAIN(1-3)OR ELEVATED TEMP; Start 07/28/18 at 21:00 Ondansetron HCl (Zofran Inj) 4 mg Q6H PRN IV NAUSEA AND/OR VOMITING; Start 07/28/18 at 21:00 Methylprednisolone Sodium Succinate (Solu-Medrol) 40 mg DAILY IV Last administered on 07/30/18 08:09; Admin Dose 40 MG; Start 07/29/18 at 09:00 Ascorbic Acid (Vitamin C) 500 mg TID PO Last administered on 07/30/18 22:05; Admin Dose 500 MG; Start 07/29/18 at 09:00 Furosemide (Lasix) 20 mg BID DIURETICS IV Last administered on 07/31/18 06:55; Admin Dose 20 MG; Start 07/29/18 at 09:00 Estrogens Conjugated (Premarin) 0.45 mg DAILY PO Last administered on 07/30/18 08:09; Admin Dose 0.45 MG; Start 07/29/18 at 11:00 Lorazepam (Ativan) 0.5 mg Q6H PRN PO ANXIETY Last administered on 07/30/18 22:40; Admin Dose 0.5 MG; Start 07/29/18 at 20:30 Guaifenesin/ Dextromethorphan (Robitussin Dm Liquid Cup) 5 ml Q4H PRN PO COUGH Last administered on 07/31/18at 04:31; Admin Dose 5 ML; Start 07/29/18 at 20:30 Dextrose 1,000 ml @ 50 mls/hr Q20H IV Last administered on 07/30/18at 09:40; Admin Dose 50 MLS/HR; Start 07/30/18 at 08:30 Diltiazem HCl 125 ml @ 5 mls/hr TITRATE IV Last administered on 07/30/18at 09:40; Admin Dose 5 MLS/HR; Start 07/30/18 at 09:00; Status Hold Dronedarone (Multaq) 400 mg BID WITH MEALS PO Last administered on 07/30/18at 17:38; Admin Dose 400 MG; Start 07/30/18 at 09:30 Miscellaneous Information (*Rx Drug Level Order Reminder*) VANCOMYCIN TROUGH AT 0800 ONCE ONCE XX ; Start 07/31/18 at 08:00; Stop 07/31/18 at 08:01 Assessment/Plan Hospital Course (Demo Recall) 1. Hypoxemic respiratory failure 2. Pulmonary fibrosis/severe COPD 3. Elevated BNP most likely secondary to above and significant pulmonary hypertension 4. paroxysmal atrial fibrillation; currently converted back to normal sinus rhythm 5. Encephalopathy 6. Most likely pneumonia 7. History of recent fall and hip fracture status post surgery 8. Anemia 9. Lactic acidosis 10. Hypertension 11. Pulmonary hypertension Recommendations: Off the aspirin since the patient is already on Eliquis Low-dose diuretics will be continued and adjusted as needed. Chest ultrasound did not show significant effusion Antibiotic management as per internal medicine We will continue to monitor on telemetry Correct electrolytes as needed Transfusions as needed I have stopped amiodarone given concern about her severe pulmonary disease and pulmonary fibrosis. pt was started on Multaq . Cardizem IV as well as digoxin to control the heart rate better on as-needed basis. TSH is within normal limits Given her pulmonary hypertension and was started on Revatio Thank you for his referral. We will continue to follow along with you DAYRON ROGERS MD [facility] DAYRON ROGERS MD Jul 31, 2018 07:57
[2018-07-31] MEDS: GABAPENTIN 100 MG CAP PO SCH ×2 (08:38→21:33)
[2018-07-31] MEDS: METHYLPREDNISOLONE 40 MG INJ IV SCH (08:38)
[2018-07-31] MEDS: ESTROGENS CONJUGATED 0.3 MG TAB PO SCH (08:38)
[2018-07-31] MEDS: ASCORBIC ACID 500 MG TAB PO SCH ×3 (08:38→21:33)
[2018-07-31] MEDS: CALCIUM/VITAMIN D (500/200) TAB PO SCH ×2 (08:38→21:34)
--- NOTE | 2018-07-31 08:38 | PN ---
DATE: 07/31/2018 SUBJECTIVE: The patient continues to have episodes of hemoptysis. She continues to be in serious, b ut stable condition. The patient remains on nonrebreather. OBJECTIVE: VITAL SIGNS: Blood pressure is 136/62, pulse 83, respirations 20, temperature 97.6. HEENT: Head is normocephalic. LUNGS: Show diminished breath sounds at the base. Positive rhonchi. ABDOMEN: Soft, nontender to palpation without rebound or guarding. EXTREMITIES: Negative for clubbing, cyanosis, no edema. DERMATOLOGIC: No rashes. MUSCULOSKELETAL: No joint effusion. NEUROLOGIC: No change in exam. MEDICATIONS: Reviewed. LABORATORY DATA: Shows white count 14.8, hemoglobin 8.8, platelet count is 274. Sodium 145, BUN 31, creatinine 1.06. ASSESSMENT AND PLAN: 1. Nonoliguric acute kidney injury with unknown baseline creatinine. Etiology is secondary to hemod ynamics. Renal function is improving. Continue current treatment plan. Continue IV hydration. 2. Hypernatremia. The patient's sodium levels have been improving. Continue D5 water. Continue to encourage free water intake. 3. Anemia with iron deficiency. Continue to monitor hemoglobin and hematocrit levels. Continue IV iron. 4. Mineral bone disorder. Monitor calcium and phosphorus levels. 5. Acute hypoxemic respiratory failure secondary to pneumonia, pulmonary fibrosis. Continue steroid s, nebulizers. Continue nonrebreather. 6. Pleural effusion. Continue to monitor. 7. Hypertension. Continue clonidine. Continue to defer KATALINA inhibitor at this time. 8. Encephalopathy, etiology is toxic metabolic. 9. Anxiety, depression. Continue medical management. 10. Atrial fibrillation. Continue Cardizem drip. Follow up with Cardiology. 11. History of peripheral vascular arterial disease. 12. Pancreatic head mass. 13. Hemoptysis likely secondary to pneumonia. Continue to monitor. Dictated By: GENEVIEVE MENJIVAR DO NR/NTS Conf#: [id number] DID#: [id number] CC: ABDIAS STAPLES MD; GENEVIEVE MENJIVAR DO;*EndCC*
[2018-07-31] MEDS: DRONEDARONE HYDROCHLORIDE 400 MG TAB PO SCH ×2 (08:39→17:26)
[2018-07-31] MEDS: METOPROLOL 25 MG TAB PO SCH ×2 (08:39→21:35)
[2018-07-31] MEDS: FLUOXETINE 20 MG CAP PO SCH (08:39)
[2018-07-31] MEDS: CEFEPIME 1GM/50 ML (PMX) 50 ML IVPB SCH ×2 (09:23→21:36)
[2018-07-31] MEDS: SILDENAFIL 20 MG TAB PO SCH ×3 (10:30→21:39)
[2018-07-31] MEDS: VANCOMYCIN 1 GM 250 ML IVPB SCH (10:30)
[2018-07-31] MEDS: LORAZEPAM 0.5 MG TAB PO PRN ×2 (12:22→19:16)
[2018-07-31] MEDS: SOD FERRIC GLUC COMPLX 125 MG in SOD CHLORIDE 0.9% 100 ML IVPB SCH (12:22)
--- NOTE | 2018-07-31 13:33 | CONS ---
DATE OF ADMISSION: 07/28/2018 DATE OF CONSULTATION: 07/31/2018 REASON FOR CONSULTATION: Shortness of breath, hemoptysis. Thank you, Dr. Pack, for this consultation. HISTORY OF PRESENT ILLNESS: This is a 73-year-old lady with history of coronary artery disease, hype rtension, hyperlipidemia, peripheral vascular disease, comes in with several-day history of increasin g cough, congestion, and now hemoptysis. Denies any nausea, no vomiting, no trauma. She underwent r ecent splenic embolization, has a history of tracheostomy with G-tube in the past with successful dec annulation. In addition, she has had recent right hip fracture. On arrival, she required nonrebreat her O2. This morning, she is awake, alert on nonrebreather O2. PAST MEDICAL HISTORY: As above. MEDICATIONS: Per chart. ALLERGIES INCLUDE: 1. PENICILLIN. 2. TETRACYCLINE. 3. TYLENOL 4. HYDROCODONE. 5. MORPHINE. 6. OXYCODONE. SOCIAL HISTORY: She is an ex-smoker, quit smoking 10 years ago. No alcohol, no history of drug use. FAMILY HISTORY: Noncontributory. SYSTEMS REVIEW: A 12-point review of systems was negative other than that mentioned above. PHYSICAL EXAMINATION: GENERAL: Well-nourished, well-developed lady, talking in full and complete sentences. VITAL SIGNS: Currently afebrile, pulse is 90, blood pressure 136/62, O2 saturation is 90% on nonrebr eather. NECK: Supple. No JVD or lymphadenopathy. CARDIAC: S1, S2, no added sounds or murmur. CHEST: Diminished air entry bilaterally. ABDOMEN: Soft, nontender. No guarding or rebound. EXTREMITIES: Without cyanosis, clubbing or edema. NEUROLOGIC: Generalized weakness. No focal deficits. LABORATORY DATA: White count 15.8, hemoglobin 8.8, platelets of 274. BUN 31, creatinine 1.04. D-di domi elevated APTT, CT angiogram demonstrates no evidence of pulmonary embolism; however, infiltrate v ersus mass in the lungs with evidence of pulmonary fibrosis and pulmonary hypertension. IMPRESSION AND PLAN: 1. Likely significant community-acquired pneumonia. 2. Fibrotic lung disease. 3. Questionable underlying malignancy. 4. Acute hypoxemic respiratory failure secondary to above. 5. Recent hip fracture. 6. No evidence of deep vein thrombosis. The patient will require: 1. Continue steroids. 2. Bronchodilators. 3. High flow O2. 4. CT scan and/or PET scan of the lungs when infectious process has improved. If hemoptysis continu es the patient may require bronchoscopy. Dictated By: CARRINGTON LANDIN MD SV/MARLENY Conf#: [id number] DID#: [id number] CC: ABDIAS PACK MD;*EndCC*
--- NOTE | 2018-07-31 14:18 | CONS ---
Assessment/Plan Assessment/Plan Hospital Course (Demo Recall) No events overnight patient is sleeping looks comfortable no fevers WBC 14.8 platelets 274 neutrophils 84.1 BUN 31 creatinine 1.04 Microbiology: Blood culture growing gram-positive cocci in clusters, influenza swab negative, urine culture negative MRSA swab negative CT of the chest on admission revealed moderate pulmonary fibrosis first at the bilateral lung apices. Associated mediastinal adenopathy. Underlying mass not entirely excluded. Small right multiple loculated pleural effusion. Left renal 4 cm hyperdense cyst or mass dilated pulmonary trunk and bilateral pulmonary arteries compatible with sequela of pulmonary hypertension Antimicrobials: Vancomycin, cefepime Allergies: Penicillin, tetracycline Physical examination: This is a fragile chronically ill-appearing wasted elderly woman who is awake in no distress. Head atraumatic normocephalic sclera nonicteric. Neck is supple. Chest rise symmetrical breath sounds with bilateral rhonchi. Heart: S1-S2. Abdomen soft bowel sounds present extremities without cyanosis. Assessment: 1. Severe sepsis with gram-positive cocci bacteremia 2. Acute on chronic respiratory failure 3. Healthcare associated pneumonia, possibly strep 4. Chronic pulmonary fibrosis 5. Peripheral arterial disease status post stent 6. Pancreatic head mass, patient is following with a specialist yearly 7. Recent right hip fracture status post surgical intervention Plan: Stable, continue antibiotics, f/u repeat blood cultures, f/u pulmonary rec-s Consultation Date/Type/Reason Admit Date/Time Jul 28, 2018 at 18:16 Initial Consult Date 07/28/18 Type of Consult id Requesting Provider: ABDIAS STAPLES MD Date/Time of Note DATE: 07/31/18 TIME: 14:13 Exam/Review of Systems Exam Vitals Vital Signs Date Temp Pulse Resp B/P (MAP) Pulse Ox O2 O2 Flow FiO2 Time Delivery Rate 07/31/18 78 12:34 07/31/18 98.0 22 140/61 96 Room Air 12:18 (87) 07/31/18 100 12:13 07/31/18 15.0 09:52 Intake and Output 07/30/18 07/30/18 07/31/18 1515:00 23:00 07:00 IntakeIntake Total 300 ml 1110 ml 80 ml OutputOutput Total 1500 ml BalanceBalance 300 ml -390 ml 80 ml Results Result Diagram: 07/31/18 0545 07/31/18 0545 Results 24hrs Laboratory Tests Test 07/31/18 05:45 07/31/18 05:46 07/31/18 07:53 White Blood Count 14.8 H Red Blood Count 2.84 #L Hemoglobin 8.8 #L Hematocrit 28.8 #L Mean Corpuscular Volume 101.4 H Mean Corpuscular Hemoglobin 31.0 Mean Corpuscular Hemoglobin Concent 30.6 L Red Cell Distribution Width 21.1 H Platelet Count 274 # Mean Platelet Volume 10.2 Immature Granulocytes % 0.700 H Neutrophils % 84.1 H Lymphocytes % 10.0 L Monocytes % 5.1 Eosinophils % 0.0 Basophils % 0.1 Nucleated Red Blood Cells % 0.0 Immature Granulocytes # 0.110 H Neutrophils # 12.4 H Lymphocytes # 1.5 Monocytes # 0.8 Eosinophils # 0.0 Basophils # 0.0 Nucleated Red Blood Cells # 0.0 Sodium Level 145 H Potassium Level 3.9 Chloride Level 108 Carbon Dioxide Level 30 Anion Gap 7 Blood Urea Nitrogen 31 H Creatinine 1.04 H Est Glomerular Filtrat Rate mL/min Glucose Level 122 Calcium Level 8.9 Total Bilirubin 0.1 L Direct Bilirubin 0.00 Indirect Bilirubin 0.1 Aspartate Amino Transf (AST/SGOT) 40 Alanine Aminotransferase (ALT/SGPT) 27 Alkaline Phosphatase 96 Total Protein 5.8 #L Albumin 2.9 L Globulin 2.90 Albumin/Globulin Ratio 1.00 Phosphorus Level 2.7 Magnesium Level 2.3 Vancomycin Level Trough 14.8 Medications Medication Current Medications Vancomycin HCl (Vanco Iv Per Pharmacy) VANCOMYCIN PER PHARMACY PER PROTOCOL XX ; Start 07/28/18 at 17:30 Cefepime HCl 50 ml @ 100 mls/hr Q12 IVPB Last administered on 07/31/18at 09:23; Admin Dose 100 MLS/HR; Start 07/28/18 at 21:00 Ferric Sodium Gluconate Complex 125 mg/Sodium Chloride 110 ml @ 110 mls/hr DAILY@1300 IVPB Last administered on 07/31/18at 12:22; Admin Dose 110 MLS/HR; Start 07/29/18 at 13:00; Stop 08/02/18 at 13:59 Albuterol/ Ipratropium (Duoneb) 3 ml Q6H RESP THERAPY HHN Last administered on 07/31/18at 09:47; Admin Dose 3 ML; Start 07/28/18 at 20:00 Albuterol/ Ipratropium (Duoneb) 3 ml Q2H RESP THERAPY PRN HHN WHEEZING AND SOB; Start 07/28/18 at 17:30 Pantoprazole (Protonix Iv) 40 mg DAILY@06 IV Last administered on 07/31/18 06:54; Admin Dose 40 MG; Start 07/29/18 at 06:00 Vancomycin HCl 250 ml @ 125 mls/hr Q24H IVPB Last administered on 07/31/18 10:30; Admin Dose 125 MLS/HR; Start 07/29/18 at 09:00 Apixaban (Eliquis) 5 mg BID PO Last administered on 07/28/18 22:30; Admin Dose 5 MG; Start 07/28/18 at 21:00; Status Hold Calcium/Vitamin D (Oyster Shell/ Vit-D (500/200)) 1 tab BID PO Last administered on 07/31/18 08:38; Admin Dose 1 TAB; Start 07/28/18 at 21:00 Clonazepam (Klonopin) 0.5 mg BID PRN PO ANXIETY Last administered on 07/29/18 01:00; Admin Dose 0.5 MG; Start 07/28/18 at 21:00 Clonidine (Catapres) 0.1 mg TID PRN PO ELEVATED BLOOD PRESSURE Last administered on 07/29/18 16:54; Admin Dose 0.1 MG; Start 07/28/18 at 21:00 Hydromorphone HCl (Dilaudid) 2 mg Q4H PRN PO SEVERE PAIN LEVEL 7-10 Last administered on 07/30/18 05:15; Admin Dose 2 MG; Start 07/28/18 at 21:00 Docusate Sodium (Colace) 100 mg BID PRN PO CONSTIPATION; Start 07/28/18 at 21:00 Gabapentin (Neurontin) 200 mg BID PO Last administered on 07/31/18 08:38; Admin Dose 200 MG; Start 07/28/18 at 21:00 Atorvastatin Calcium (Lipitor) 10 mg HS PO Last administered on 07/30/18 22:04; Admin Dose 10 MG; Start 07/28/18 at 21:00 Metoprolol Tartrate (Lopressor) 25 mg BID PO Last administered on 07/31/18 08:39; Admin Dose 25 MG; Start 07/28/18 at 21:00 Magnesium Hydroxide (Milk Of Mag) 30 ml DAILY PRN PO CONSTIPATION; Start 07/28/18 at 21:00 Acetaminophen/ Hydrocodone Bitart ([place] (10/325)) 1 tab Q4H PRN PO MODERATE PAIN LEVEL 4-6 Last administered on 07/31/18 09:28; Admin Dose 1 TAB; Start 07/28/18 at 21:00 Fluoxetine HCl (Prozac) 20 mg DAILY PO Last administered on 07/31/18 08:39; Admin Dose 20 MG; Start 07/29/18 at 09:00 Carisoprodol (Soma) 350 mg BID PRN PO MUSCLE SPASMS; Start 07/28/18 at 21:00 Trazodone HCl (Desyrel) 50 mg HS PRN PO INSOMNIA Last administered on 07/29/18 20:29; Admin Dose 50 MG; Start 07/28/18 at 21:00 Acetaminophen (Tylenol Tab) 650 mg Q6H PRN PO MILD PAIN(1-3)OR ELEVATED TEMP; Start 07/28/18 at 21:00 Ondansetron HCl (Zofran Inj) 4 mg Q6H PRN IV NAUSEA AND/OR VOMITING; Start 07/28/18 at 21:00 Methylprednisolone Sodium Succinate (Solu-Medrol) 40 mg DAILY IV Last administered on 07/31/18 08:38; Admin Dose 40 MG; Start 07/29/18 at 09:00 Ascorbic Acid (Vitamin C) 500 mg TID PO Last administered on 07/31/18 13:42; Admin Dose 500 MG; Start 07/29/18 at 09:00 Furosemide (Lasix) 20 mg BID DIURETICS IV Last administered on 07/31/18 06:55; Admin Dose 20 MG; Start 07/29/18 at 09:00 Estrogens Conjugated (Premarin) 0.45 mg DAILY PO Last administered on 07/31/18 08:38; Admin Dose 0.45 MG; Start 07/29/18 at 11:00 Lorazepam (Ativan) 0.5 mg Q6H PRN PO ANXIETY Last administered on 07/31/18 12:22; Admin Dose 0.5 MG; Start 07/29/18 at 20:30 Guaifenesin/ Dextromethorphan (Robitussin Dm Liquid Cup) 5 ml Q4H PRN PO COUGH Last administered on 07/31/18 04:31; Admin Dose 5 ML; Start 07/29/18 at 20:30 Dextrose 1,000 ml @ 50 mls/hr Q20H IV Last administered on 07/30/18 09:40; Admin Dose 50 MLS/HR; Start 07/30/18 at 08:30 Diltiazem HCl 125 ml @ 5 mls/hr TITRATE IV Last administered on 07/30/18 09:40; Admin Dose 5 MLS/HR; Start 07/30/18 at 09:00; Status Hold Dronedarone (Multaq) 400 mg BID WITH MEALS PO Last administered on 07/31/18 08:39; Admin Dose 400 MG; Start 07/30/18 at 09:30 Sildenafil Citrate (Revatio) 10 mg TID PO Last administered on 07/31/18 13:43; Admin Dose 10 MG; Start 07/31/18 at 09:00 ANDREW SMITH NP Jul 31, 2018 14:18
--- NOTE | 2018-07-31 17:22 | PN ---
DATE: 07/31/2018 SUBJECTIVE AND INTERVAL HISTORY: The patient's respiratory status remains marginal. She does get sh ort of breath with minimal activity. The patient is requiring a 35-liter per minute on FiO2 of 100%. The patient also went into AFib with RVR and has been started on IV diltiazem. Subsequently, she c onverted to sinus rhythm. The patient also continues to have intermittent nosebleed and hemoptysis; therefore the patient will be started on baby aspirin but we will continue to hold Eliquis. The oriana ent denies any chest pain, no abdominal pain, no reported vomiting or diarrhea. The patient remains awake, alert and responsive. PHYSICAL EXAMINATION: GENERAL: Revealed the patient to be awake. VITAL SIGNS: Temperature 97.6, pulse 69, respirations 22, blood pressure 108/57, O2 saturation 96% o n high flow as mentioned above. HEENT: Atraumatic, normocephalic head. Conjunctivae are normal. Oropharynx is grossly negative. NECK: No mass. CHEST: Bibasilar rales, diminished air entry bilaterally, few scattered rhonchi. CARDIOVASCULAR: Currently, the patient is sinus rhythm on telemetry. No murmur or gallop. ABDOMEN: Soft, nondistended, nontender. Bowel sounds are present. EXTREMITIES: No clubbing, cyanosis. NEUROLOGIC: Revealed the patient to be awake, alert, oriented with no gross focal deficit. LABORATORY DATA: WBC 14.8, platelet 274, hemoglobin 8.8. Sodium 148, potassium 4.4, BUN 21, creatin ine 0.9, glucose 117. Lactic acid is 2.7 down to 0.9. TSH 0.713, which is within normal limit. Blo od culture has gram-positive cocci in clusters, identification pending. IMPRESSION: 1. Acute hypoxemic respiratory failure. Continue high flow oxygen as the patient remains critically ill requiring 35-liter of oxygen per minute at FiO2 of 100%. Continue breathing treatment. 2. Severe sepsis with Gram-positive cocci bacteremia. Continue IV vancomycin. 3. Possible healthcare-associated pneumonia. Continue cefepime. 4. Secondary pulmonary hypertension. The patient is on Revatio. 5. Peripheral vascular disease, status post stenting. Continue aspirin for now. 6. Right hip fracture. No acute issue. Continue range of motion. The patient is currently not a c andidate for acute rehabilitation. 7. Depression and anxiety. Continue Prozac. 8. Neuropathy. Continue gabapentin. 9. Paroxysmal atrial fibrillation. Continue metoprolol for heart rate control and also, the patient has been started on Multaq. I spoke with patient's son and patient herself. The patient remains critically ill with marginal res piratory status. Total time spent approximately is 35 minutes. Dictated By: ABDIAS HENRY/MARLENY Conf#: [id number] DID#: [id number] CC: GENEVIEVE MENJIVAR DO;*EndCC*
[2018-07-31] MEDS: ATORVASTATIN 10 MG TAB PO SCH (21:32)
[2018-07-31] MEDS: clonAZEPAM 0.5 MG TAB PO PRN (22:32)
[2018-08-01] VITALS (9 sets, daily range): BP systolic 120–176; BP diastolic 59–75; PULSE 70–94; RESP 20–22
[2018-08-01] MEDS: ALBUTEROL/IPRATROPIUM (NEB) 3 ML AMP HHN SCH ×4 (01:22→20:11)
[2018-08-01] MEDS: LORAZEPAM 0.5 MG TAB PO PRN ×3 (01:34→20:56)
[2018-08-01] MEDS: HYDROCODONE/APAP (10/325) TAB PO PRN ×4 (01:38→21:02)
[2018-08-01] MEDS: GUAIFENESIN/DM 5ML CUP PO PRN ×2 (02:53→16:32)
[2018-08-01] MEDS: PANTOPRAZOLE 40 MG INJ IV SCH (05:43)
[2018-08-01] MEDS: FUROSEMIDE 20 MG INJ IV SCH (05:44)
[2018-08-01] MEDS: DRONEDARONE HYDROCHLORIDE 400 MG TAB PO SCH ×2 (08:26→18:18)
[2018-08-01] MEDS: ASCORBIC ACID 500 MG TAB PO SCH ×3 (08:26→20:55)
[2018-08-01] MEDS: HYDROmorphONE 2 MG TAB PO PRN ×2 (08:26→23:34)
[2018-08-01] MEDS: ASPIRIN (EC) 81 MG TAB PO SCH (08:26)
[2018-08-01] MEDS: CALCIUM/VITAMIN D (500/200) TAB PO SCH ×2 (08:26→20:55)
[2018-08-01] MEDS: ESTROGENS CONJUGATED 0.3 MG TAB PO SCH (08:26)
[2018-08-01] MEDS: FLUOXETINE 20 MG CAP PO SCH (08:26)
[2018-08-01] MEDS: VANCOMYCIN 1 GM 250 ML IVPB SCH (08:27)
[2018-08-01] MEDS: METOPROLOL 25 MG TAB PO SCH ×2 (08:27→20:56)
[2018-08-01] MEDS: CEFEPIME 1GM/50 ML (PMX) 50 ML IVPB SCH ×2 (08:27→20:54)
[2018-08-01] MEDS: METHYLPREDNISOLONE 40 MG INJ IV SCH (08:28)
--- NOTE | 2018-08-01 08:28 | PN ---
DATE: 08/01/2018 SUBJECTIVE: The patient remains in serious condition. Currently on high flow oxygen. No other even ts noted. OBJECTIVE: VITAL SIGNS: Blood pressure is 147/65, respirations 22, pulse 86, temperature 98.2. HEENT: Head is normocephalic. NECK: Supple. HEART: Regular rate. LUNGS: Show diminished breath sounds at the base. ABDOMEN: Soft, nontender to palpation. No rebound or guarding. EXTREMITIES: Negative for clubbing, cyanosis. No edema. DERMATOLOGIC: No rashes. MUSCULOSKELETAL: No joint effusion. NEUROLOGIC: No change in exam. MEDICATIONS: Reviewed. LABORATORY DATA: Shows a sodium of 145, potassium 4.4, BUN 35, creatinine 1.20. White count 14.8, h emoglobin 8.8, platelet count is 274. ASSESSMENT AND PLAN: 1. Nonoliguric acute kidney injury with unknown baseline creatinine. Etiology is multifactorial sec ondary to hemodynamics, sepsis, diuretic therapy. Questionable nephrotoxicity. Plan is to continue to monitor renal function closely. If renal function should further decline, would discontinue vanco mycin and consider holding diuretic therapy. Otherwise, continue supportive care, renally dose all m edications, avoid nephrotoxins. 2. Hyponatremia. Sodium levels are stable. Continue D5 water. 3. Anemia. Continue to monitor hemoglobin and hematocrit levels. 4. Mineral bone disorder. Monitor calcium and phosphorus levels. 5. Acute hypoxemic respiratory failure secondary to pneumonia, pulmonary fibrosis. Continue current medical management, nebulizer, steroids. Continue high flow oxygen. 6. Hypertension. Continue to monitor. Continue current blood pressure regimen. 7. Encephalopathy, etiology is toxic-metabolic. Continue to monitor. 8. Anxiety, depression. Continue current treatment plan. 9. Atrial fibrillation. Continue medical management. Follow up with cardiology. 10. Hemoptysis, likely secondary to pneumonia. Continue current treatment plan, monitor closely. 11. History of peripheral arterial disease. 12. Status post right hip fracture. 13. Pancreatic head mass. Dictated By: GENEVIEVE MENJIVAR DO NR/NTS Conf#: [id number] DID#: [id number] CC: ABDIAS STAPLES MD;*EndCC*
[2018-08-01] MEDS: GABAPENTIN 100 MG CAP PO SCH ×2 (08:40→20:56)
--- NOTE | 2018-08-01 08:42 | CONS ---
Assessment/Plan Assessment/Plan Assessment/Plan (Daily) 1. Hypoxemic respiratory failure 2. Pulmonary fibrosis/severe COPD 3. Elevated BNP most likely secondary to above and significant pulmonary hypertension 4. paroxysmal atrial fibrillation; currently converted back to normal sinus rhythm 5. Encephalopathy 6. Most likely pneumonia 7. History of recent fall and hip fracture status post surgery 8. Anemia 9. Lactic acidosis 10. Hypertension 11. Pulmonary hypertension Recommendations: Low-dose diuretics will be continued and adjusted as needed. Chest ultrasound did not show significant effusion Antibiotic management as per internal medicine We will continue to monitor on telemetry Correct electrolytes as needed Transfusions as needed continue multaq, but eliquis on hold Given her pulmonary hypertension and was started on Revatio Consultation Date/Type/Reason Admit Date/Time Jul 28, 2018 at 18:16 Initial Consult Date 07/28/18 Type of Consult Cardiology Requesting Provider: ABDIAS STAPLES MD Date/Time of Note DATE: 08/01/18 TIME: 08:40 24 HR Interval Summary Free Text/Dictation The patient wtih no change and still sob Exam/Review of Systems Vital Signs Vitals Vital Signs Date Temp Pulse Resp B/P (MAP) Pulse Ox O2 O2 Flow FiO2 Time Delivery Rate 08/01/18 85 08:04 08/01/18 100 07:46 08/01/18 23 98 07:44 08/01/18 98.2 147/65 High Flow 07:34 (92) 07/31/18 15.0 09:52 Intake and Output 07/31/18 07/31/18 08/01/18 1515:00 23:00 07:00 IntakeIntake Total 500 ml 760 ml 450 ml OutputOutput Total 800 ml 1200 ml 800 ml BalanceBalance -300 ml -440 ml -350 ml Labs Result Diagram: 07/31/18 0545 08/01/18 0552 Results 24hrs Laboratory Tests Test 08/01/18 05:52 Sodium Level 145 H Potassium Level 4.4 Chloride Level 105 Carbon Dioxide Level 31 Anion Gap 9 Blood Urea Nitrogen 35 H Creatinine 1.20 H Est Glomerular Filtrat Rate mL/min Glucose Level 106 Calcium Level 9.2 Total Bilirubin 0.2 Direct Bilirubin 0.00 Indirect Bilirubin 0.2 Aspartate Amino Transf (AST/SGOT) 110 H Alanine Aminotransferase (ALT/SGPT) 70 H Alkaline Phosphatase 105 Total Protein 6.4 Albumin 3.2 L Globulin 3.20 Albumin/Globulin Ratio 1.00 Medications Medications Current Medications Vancomycin HCl (Vanco Iv Per Pharmacy) VANCOMYCIN PER PHARMACY PER PROTOCOL XX ; Start 07/28/18 at 17:30 Cefepime HCl 50 ml @ 100 mls/hr Q12 IVPB Last administered on 07/31/18at 21:36; Admin Dose 100 MLS/HR; Start 07/28/18 at 21:00 Ferric Sodium Gluconate Complex 125 mg/Sodium Chloride 110 ml @ 110 mls/hr DAILY@1300 IVPB Last administered on 07/31/18at 12:22; Admin Dose 110 MLS/HR; Start 07/29/18 at 13:00; Stop 08/02/18 at 13:59 Albuterol/ Ipratropium (Duoneb) 3 ml Q6H RESP THERAPY HHN Last administered on 08/01/18at 07:43; Admin Dose 3 ML; Start 07/28/18 at 20:00 Albuterol/ Ipratropium (Duoneb) 3 ml Q2H RESP THERAPY PRN HHN WHEEZING AND SOB; Start 07/28/18 at 17:30 Pantoprazole (Protonix Iv) 40 mg DAILY@06 IV Last administered on 08/01/18 05:43; Admin Dose 40 MG; Start 07/29/18 at 06:00 Vancomycin HCl 250 ml @ 125 mls/hr Q24H IVPB Last administered on 07/31/18at 10:30; Admin Dose 125 MLS/HR; Start 07/29/18 at 09:00 Apixaban (Eliquis) 5 mg BID PO Last administered on 07/28/18at 22:30; Admin Dose 5 MG; Start 07/28/18 at 21:00; Status Hold Calcium/Vitamin D (Oyster Shell/ Vit-D (500/200)) 1 tab BID PO Last administered on 07/31/18 21:34; Admin Dose 1 TAB; Start 07/28/18 at 21:00 Clonazepam (Klonopin) 0.5 mg BID PRN PO ANXIETY Last administered on 07/31/18 22:32; Admin Dose 0.5 MG; Start 07/28/18 at 21:00 Clonidine (Catapres) 0.1 mg TID PRN PO ELEVATED BLOOD PRESSURE Last administered on 07/29/18at 16:54; Admin Dose 0.1 MG; Start 07/28/18 at 21:00 Hydromorphone HCl (Dilaudid) 2 mg Q4H PRN PO SEVERE PAIN LEVEL 7-10 Last administered on 07/30/18 05:15; Admin Dose 2 MG; Start 07/28/18 at 21:00 Docusate Sodium (Colace) 100 mg BID PRN PO CONSTIPATION; Start 07/28/18 at 21:00 Gabapentin (Neurontin) 200 mg BID PO Last administered on 07/31/18 21:33; Admin Dose 200 MG; Start 07/28/18 at 21:00 Atorvastatin Calcium (Lipitor) 10 mg HS PO Last administered on 07/31/18 21:32; Admin Dose 10 MG; Start 07/28/18 at 21:00 Metoprolol Tartrate (Lopressor) 25 mg BID PO Last administered on 07/31/18 21:35; Admin Dose 25 MG; Start 07/28/18 at 21:00 Magnesium Hydroxide (Milk Of Mag) 30 ml DAILY PRN PO CONSTIPATION; Start 07/28/18 at 21:00 Acetaminophen/ Hydrocodone Bitart ([place] (10/325)) 1 tab Q4H PRN PO MODERATE PAIN LEVEL 4-6 Last administered on 08/01/18 05:43; Admin Dose 1 TAB; Start 07/28/18 at 21:00 Fluoxetine HCl (Prozac) 20 mg DAILY PO Last administered on 07/31/18 08:39; Admin Dose 20 MG; Start 07/29/18 at 09:00 Carisoprodol (Soma) 350 mg BID PRN PO MUSCLE SPASMS; Start 07/28/18 at 21:00 Trazodone HCl (Desyrel) 50 mg HS PRN PO INSOMNIA Last administered on 07/29/18 20:29; Admin Dose 50 MG; Start 07/28/18 at 21:00 Acetaminophen (Tylenol Tab) 650 mg Q6H PRN PO MILD PAIN(1-3)OR ELEVATED TEMP; Start 07/28/18 at 21:00 Ondansetron HCl (Zofran Inj) 4 mg Q6H PRN IV NAUSEA AND/OR VOMITING; Start 07/28/18 at 21:00 Methylprednisolone Sodium Succinate (Solu-Medrol) 40 mg DAILY IV Last administered on 07/31/18 08:38; Admin Dose 40 MG; Start 07/29/18 at 09:00 Ascorbic Acid (Vitamin C) 500 mg TID PO Last administered on 07/31/18 21:33; Admin Dose 500 MG; Start 07/29/18 at 09:00 Furosemide (Lasix) 20 mg BID DIURETICS IV Last administered on 08/01/18 05:44; Admin Dose 20 MG; Start 07/29/18 at 09:00 Estrogens Conjugated (Premarin) 0.45 mg DAILY PO Last administered on 07/31/18 08:38; Admin Dose 0.45 MG; Start 07/29/18 at 11:00 Lorazepam (Ativan) 0.5 mg Q6H PRN PO ANXIETY Last administered on 08/01/18 01:34; Admin Dose 0.5 MG; Start 07/29/18 at 20:30 Guaifenesin/ Dextromethorphan (Robitussin Dm Liquid Cup) 5 ml Q4H PRN PO COUGH Last administered on 08/01/18 02:53; Admin Dose 5 ML; Start 07/29/18 at 20:30 Dextrose 1,000 ml @ 50 mls/hr Q20H IV Last administered on 07/31/18 17:27; Admin Dose 50 MLS/HR; Start 07/30/18 at 08:30 Diltiazem HCl 125 ml @ 5 mls/hr TITRATE IV Last administered on 07/30/18 09:40; Admin Dose 5 MLS/HR; Start 07/30/18 at 09:00; Status Hold Dronedarone (Multaq) 400 mg BID WITH MEALS PO Last administered on 07/31/18 17:26; Admin Dose 400 MG; Start 07/30/18 at 09:30 Sildenafil Citrate (Revatio) 10 mg TID PO Last administered on 07/31/18 21:39; Admin Dose 10 MG; Start 07/31/18 at 09:00 Aspirin (Halfprin) 81 mg DAILY PO ; Start 08/01/18 at 09:00 SHIRA DUNN MD Aug 01, 2018 08:42
[2018-08-01] MEDS: SILDENAFIL 20 MG TAB PO SCH ×3 (08:43→20:55)
--- NOTE | 2018-08-01 10:56 | CONS ---
Assessment/Plan Assessment/Plan Assessment/Plan (Daily) Assessment and recommendations; 1. Patient admitted with severe hypoxemia and hemoptysis with interval improvement. 2. Likely underlying severe pulmonary fibrosis. Currently requiring 100% FiO2 via high flow nasal cannula. 3. History of recent right hip fracture. 4. Mild increase in serum creatinine, likely diuretic induced. 5. Anemia. 6. Gram-positive bacteremia with most recent blood cultures been negative. 7. Possibly superimposed pneumonia. Continue current supportive care. Withhold further Lasix. Monitor renal function. Wean down FiO2 as tolerated. Overall prognosis is poor. Consultation Date/Type/Reason Admit Date/Time Jul 28, 2018 at 18:16 Initial Consult Date 07/28/18 Type of Consult Pulmonary Reason for Consultation Patient's condition is stable. Reports decreased shortness of breath. Denies any further hemoptysis. General exam; elderly female, awake alert. Currently no distress. H EENT exam; supple neck, no JVD. No lymphadenopathy. Midline trachea. No thyromegaly. Pharynx is clear. Patient is edentulous. Chest exam; bilateral crackles. S1-S2 audible, no murmurs. Abdomen exam; soft, nontender. Scaphoid. Bowel sounds audible. Extremity exam; no peripheral edema. Patient is a multiple ecchymosis. FIELD TECHNICAL SUPPORT CONSULTANT exam; no focal deficit. Requesting Provider: ABDIAS STAPLES MD Date/Time of Note DATE: 08/01/18 TIME: 10:53 Exam/Review of Systems Exam Vitals Vital Signs Date Temp Pulse Resp B/P (MAP) Pulse Ox O2 O2 Flow FiO2 Time Delivery Rate 08/01/18 85 08:04 08/01/18 100 07:46 08/01/18 23 98 07:44 08/01/18 98.2 147/65 High Flow 07:34 (92) 07/31/18 15.0 09:52 Intake and Output 07/31/18 07/31/18 08/01/18 1515:00 23:00 07:00 IntakeIntake Total 500 ml 760 ml 450 ml OutputOutput Total 800 ml 1200 ml 800 ml BalanceBalance -300 ml -440 ml -350 ml Results Result Diagram: 07/31/18 0545 08/01/18 0552 Results 24hrs Laboratory Tests Test 08/01/18 05:52 08/01/18 07:00 Sodium Level 145 H Potassium Level 4.4 Chloride Level 105 Carbon Dioxide Level 31 Anion Gap 9 Blood Urea Nitrogen 35 H Creatinine 1.20 H Est Glomerular Filtrat Rate mL/min Glucose Level 106 Calcium Level 9.2 Total Bilirubin 0.2 Direct Bilirubin 0.00 Indirect Bilirubin 0.2 Aspartate Amino Transf (AST/SGOT) 110 H Alanine Aminotransferase (ALT/SGPT) 70 H Alkaline Phosphatase 105 Total Protein 6.4 Albumin 3.2 L Globulin 3.20 Albumin/Globulin Ratio 1.00 Blood Gas Specimen Source Blood arterial Arterial Blood Date Drawn 08/01/2018 9:40:34 AM Arterial Blood pH (Temp corrected) 7.389 Arterial Blood pCO2 (Temp correct) 44.2 Arterial Blood pO2 (Temp corrected) 58.1 L Arterial Blood HCO3 26.1 H Arterial Blood Base Excess 0.9 Arterial Blood Oxygen Saturation 89.1 L Vick Test ACCEPTAB Arterial Blood Gas Puncture Site Right Radial Arterial Blood Carboxyhemoglobin 0.2 Arterial Blood Methemoglobin 0.1 Blood Gas A-a O2 Differential 610.7 H Oxyhemoglobin Percent 88.8 L Blood Gas Temperature 37.0 Blood Gas Modality HFNC FiO2 100.0 Blood Gas Notified Whom RT Blood Gas Notified Time 08/01/2018 9:50:17 AM Medications Medication Current Medications Vancomycin HCl (Vanco Iv Per Pharmacy) VANCOMYCIN PER PHARMACY PER PROTOCOL XX ; Start 07/28/18 at 17:30 Cefepime HCl 50 ml @ 100 mls/hr Q12 IVPB Last administered on 08/01/18at 08:27; Admin Dose 100 MLS/HR; Start 07/28/18 at 21:00 Ferric Sodium Gluconate Complex 125 mg/Sodium Chloride 110 ml @ 110 mls/hr DAILY@1300 IVPB Last administered on 07/31/18at 12:22; Admin Dose 110 MLS/HR; Start 07/29/18 at 13:00; Stop 08/02/18 at 13:59 Albuterol/ Ipratropium (Duoneb) 3 ml Q6H RESP THERAPY HHN Last administered on 08/01/18at 07:43; Admin Dose 3 ML; Start 07/28/18 at 20:00 Albuterol/ Ipratropium (Duoneb) 3 ml Q2H RESP THERAPY PRN HHN WHEEZING AND SOB; Start 07/28/18 at 17:30 Pantoprazole (Protonix Iv) 40 mg DAILY@06 IV Last administered on 08/01/18 05:43; Admin Dose 40 MG; Start 07/29/18 at 06:00 Vancomycin HCl 250 ml @ 125 mls/hr Q24H IVPB Last administered on 08/01/18 08:27; Admin Dose 125 MLS/HR; Start 07/29/18 at 09:00 Apixaban (Eliquis) 5 mg BID PO Last administered on 07/28/18 22:30; Admin Dose 5 MG; Start 07/28/18 at 21:00; Status Hold Calcium/Vitamin D (Oyster Shell/ Vit-D (500/200)) 1 tab BID PO Last administered on 08/01/18 08:26; Admin Dose 1 TAB; Start 07/28/18 at 21:00 Clonazepam (Klonopin) 0.5 mg BID PRN PO ANXIETY Last administered on 07/31/18 22:32; Admin Dose 0.5 MG; Start 07/28/18 at 21:00 Clonidine (Catapres) 0.1 mg TID PRN PO ELEVATED BLOOD PRESSURE Last administered on 07/29/18 16:54; Admin Dose 0.1 MG; Start 07/28/18 at 21:00 Hydromorphone HCl (Dilaudid) 2 mg Q4H PRN PO SEVERE PAIN LEVEL 7-10 Last administered on 08/01/18 08:26; Admin Dose 2 MG; Start 07/28/18 at 21:00 Docusate Sodium (Colace) 100 mg BID PRN PO CONSTIPATION; Start 07/28/18 at 21:00 Gabapentin (Neurontin) 200 mg BID PO Last administered on 08/01/18 08:40; Admin Dose 200 MG; Start 07/28/18 at 21:00 Atorvastatin Calcium (Lipitor) 10 mg HS PO Last administered on 07/31/18 21:32; Admin Dose 10 MG; Start 07/28/18 at 21:00 Metoprolol Tartrate (Lopressor) 25 mg BID PO Last administered on 08/01/18 08:27; Admin Dose 25 MG; Start 07/28/18 at 21:00 Magnesium Hydroxide (Milk Of Mag) 30 ml DAILY PRN PO CONSTIPATION; Start 07/28/18 at 21:00 Acetaminophen/ Hydrocodone Bitart ([place] (10/325)) 1 tab Q4H PRN PO MODERATE PAIN LEVEL 4-6 Last administered on 08/01/18 05:43; Admin Dose 1 TAB; Start 07/28/18 at 21:00 Fluoxetine HCl (Prozac) 20 mg DAILY PO Last administered on 08/01/18 08:26; Admin Dose 20 MG; Start 07/29/18 at 09:00 Carisoprodol (Soma) 350 mg BID PRN PO MUSCLE SPASMS; Start 07/28/18 at 21:00 Trazodone HCl (Desyrel) 50 mg HS PRN PO INSOMNIA Last administered on 07/29/18 20:29; Admin Dose 50 MG; Start 07/28/18 at 21:00 Acetaminophen (Tylenol Tab) 650 mg Q6H PRN PO MILD PAIN(1-3)OR ELEVATED TEMP; Start 07/28/18 at 21:00 Ondansetron HCl (Zofran Inj) 4 mg Q6H PRN IV NAUSEA AND/OR VOMITING; Start at 21:00 Methylprednisolone Sodium Succinate (Solu-Medrol) 40 mg DAILY IV Last administered on 08/01/18 08:28; Admin Dose 40 MG; Start 07/29/18 at 09:00 Ascorbic Acid (Vitamin C) 500 mg TID PO Last administered on 08/01/18 08:26; Admin Dose 500 MG; Start 07/29/18 at 09:00 Furosemide (Lasix) 20 mg BID DIURETICS IV Last administered on 08/01/18 05:44; Admin Dose 20 MG; Start 07/29/18 at 09:00 Estrogens Conjugated (Premarin) 0.45 mg DAILY PO Last administered on 08/01/18 08:26; Admin Dose 0.45 MG; Start 07/29/18 at 11:00 Lorazepam (Ativan) 0.5 mg Q6H PRN PO ANXIETY Last administered on 08/01/18 01:34; Admin Dose 0.5 MG; Start 07/29/18 at 20:30 Guaifenesin/ Dextromethorphan (Robitussin Dm Liquid Cup) 5 ml Q4H PRN PO COUGH Last administered on 08/01/18 02:53; Admin Dose 5 ML; Start 07/29/18 at 20:30 Dextrose 1,000 ml @ 50 mls/hr Q20H IV Last administered on 07/31/18 17:27; Admin Dose 50 MLS/HR; Start 07/30/18 at 08:30 Diltiazem HCl 125 ml @ 5 mls/hr TITRATE IV Last administered on 07/30/18 09:40; Admin Dose 5 MLS/HR; Start 07/30/18 at 09:00; Status Hold Dronedarone (Multaq) 400 mg BID WITH MEALS PO Last administered on 08/01/18 08:26; Admin Dose 400 MG; Start 07/30/18 at 09:30 Sildenafil Citrate (Revatio) 10 mg TID PO Last administered on 08/01/18 08:43; Admin Dose 10 MG; Start 07/31/18 at 09:00 Aspirin (Halfprin) 81 mg DAILY PO Last administered on 08/01/18 08:26; Admin Dose 81 MG; Start 08/01/18 at 09:00 DEJUAN OSULLIVAN Aug 01, 2018 10:56
--- NOTE | 2018-08-01 11:46 | PN ---
Date/Time of Note Date/Time of Note DATE: 08/01/18 TIME: 11:45 Assessment/Plan VTE Prophylaxis Risk score (from Ns)>0 risk: 14 SCD applied (from Ns): Yes Pharmacological prophylaxis: LMWH Lines/Catheters IV Catheter Type (from [facility]): Peripheral IV Urinary Cath still in place: Yes Reason Cath still needed: skin wounds contaminated by urine Assessment/Plan Hospital Course 1. Acute hypoxemic respiratory failure. Continue high flow oxygen as the patient remains critically ill requiring 35-liter of oxygen per minute at FiO2 of 100%. Continue breathing treatment. 2. Severe sepsis with Gram-positive cocci bacteremia. Continue IV vancomycin. 3. Possible healthcare-associated pneumonia. Continue cefepime. 4. Secondary pulmonary hypertension. The patient is on Revatio. 5. Peripheral vascular disease, status post stenting. Continue aspirin for now. 6. Right hip fracture. No acute issue. Continue range of motion. The patient is currently not a candidate for acute rehabilitation. 7. Depression and anxiety. Continue Prozac. 8. Neuropathy. Continue gabapentin. 9. Paroxysmal atrial fibrillation. Continue metoprolol for heart rate control and also, the patient has been started on Multaq. Result Diagram: 07/31/18 0545 08/01/18 0552 Results 24hrs Laboratory Tests Test 08/01/18 05:52 08/01/18 07:00 Sodium Level 145 H Potassium Level 4.4 Chloride Level 105 Carbon Dioxide Level 31 Anion Gap 9 Blood Urea Nitrogen 35 H Creatinine 1.20 H Est Glomerular Filtrat Rate mL/min Glucose Level 106 Calcium Level 9.2 Total Bilirubin 0.2 Direct Bilirubin 0.00 Indirect Bilirubin 0.2 Aspartate Amino Transf (AST/SGOT) 110 H Alanine Aminotransferase (ALT/SGPT) 70 H Alkaline Phosphatase 105 Total Protein 6.4 Albumin 3.2 L Globulin 3.20 Albumin/Globulin Ratio 1.00 Blood Gas Specimen Source Blood arterial Arterial Blood Date Drawn 08/01/2018 9:40:34 AM Arterial Blood pH (Temp corrected) 7.389 Arterial Blood pCO2 (Temp correct) 44.2 Arterial Blood pO2 (Temp corrected) 58.1 L Arterial Blood HCO3 26.1 H Arterial Blood Base Excess 0.9 Arterial Blood Oxygen Saturation 89.1 L Vick Test ACCEPTAB Arterial Blood Gas Puncture Site Right Radial Arterial Blood Carboxyhemoglobin 0.2 Arterial Blood Methemoglobin 0.1 Blood Gas A-a O2 Differential 610.7 H Oxyhemoglobin Percent 88.8 L Blood Gas Temperature 37.0 Blood Gas Modality HFNC FiO2 100.0 Blood Gas Notified Whom RT Blood Gas Notified Time 08/01/2018 9:50:17 AM Subjective 24 Hr Interval Summary Free Text/Dictation Patient states she had bad night because the nurses had difficulty getting IV access Exam/Review of Systems Exam Vitals Vital Signs Date Temp Pulse Resp B/P (MAP) Pulse Ox O2 O2 Flow FiO2 Time Delivery Rate 08/01/18 85 08:04 08/01/18 100 07:46 08/01/18 23 98 07:44 08/01/18 98.2 147/65 High Flow 07:34 (92) 07/31/18 15.0 09:52 Intake and Output 07/31/18 07/31/18 08/01/18 1515:00 23:00 07:00 IntakeIntake Total 500 ml 760 ml 450 ml OutputOutput Total 800 ml 1200 ml 800 ml BalanceBalance -300 ml -440 ml -350 ml Constitutional: well developed Head: normocephalic, atraumatic Neck: supple Respiratory: diminished breath sounds Cardiovascular: regular rate and rhythm Gastrointestinal: soft, non-tender Extremities: normal pulses Results Results 24hrs Laboratory Tests Test 08/01/18 05:52 08/01/18 07:00 Sodium Level 145 H Potassium Level 4.4 Chloride Level 105 Carbon Dioxide Level 31 Anion Gap 9 Blood Urea Nitrogen 35 H Creatinine 1.20 H Est Glomerular Filtrat Rate mL/min Glucose Level 106 Calcium Level 9.2 Total Bilirubin 0.2 Direct Bilirubin 0.00 Indirect Bilirubin 0.2 Aspartate Amino Transf (AST/SGOT) 110 H Alanine Aminotransferase (ALT/SGPT) 70 H Alkaline Phosphatase 105 Total Protein 6.4 Albumin 3.2 L Globulin 3.20 Albumin/Globulin Ratio 1.00 Blood Gas Specimen Source Blood arterial Arterial Blood Date Drawn 08/01/2018 9:40:34 AM Arterial Blood pH (Temp corrected) 7.389 Arterial Blood pCO2 (Temp correct) 44.2 Arterial Blood pO2 (Temp corrected) 58.1 L Arterial Blood HCO3 26.1 H Arterial Blood Base Excess 0.9 Arterial Blood Oxygen Saturation 89.1 L Vick Test ACCEPTAB Arterial Blood Gas Puncture Site Right Radial Arterial Blood Carboxyhemoglobin 0.2 Arterial Blood Methemoglobin 0.1 Blood Gas A-a O2 Differential 610.7 H Oxyhemoglobin Percent 88.8 L Blood Gas Temperature 37.0 Blood Gas Modality HFNC FiO2 100.0 Blood Gas Notified Whom RT Blood Gas Notified Time 08/01/2018 9:50:17 AM Medications Medication Current Medications Vancomycin HCl (Vanco Iv Per Pharmacy) VANCOMYCIN PER PHARMACY PER PROTOCOL XX ; Start 07/28/18 at 17:30 Cefepime HCl 50 ml @ 100 mls/hr Q12 IVPB Last administered on 08/01/18 08:27; Admin Dose 100 MLS/HR; Start 07/28/18 at 21:00 Ferric Sodium Gluconate Complex 125 mg/Sodium Chloride 110 ml @ 110 mls/hr DAILY@1300 IVPB Last administered on 07/31/18 12:22; Admin Dose 110 MLS/HR; Start 07/29/18 at 13:00; Stop 08/02/18 at 13:59 Albuterol/ Ipratropium (Duoneb) 3 ml Q6H RESP THERAPY HHN Last administered on 08/01/18at 07:43; Admin Dose 3 ML; Start 07/28/18 at 20:00 Albuterol/ Ipratropium (Duoneb) 3 ml Q2H RESP THERAPY PRN HHN WHEEZING AND SOB; Start 07/28/18 at 17:30 Pantoprazole (Protonix Iv) 40 mg DAILY@06 IV Last administered on 08/01/18 05:43; Admin Dose 40 MG; Start 07/29/18 at 06:00 Vancomycin HCl 250 ml @ 125 mls/hr Q24H IVPB Last administered on 08/01/18 08:27; Admin Dose 125 MLS/HR; Start 07/29/18 at 09:00 Apixaban (Eliquis) 5 mg BID PO Last administered on 07/28/18 22:30; Admin Dose 5 MG; Start 07/28/18 at 21:00; Status Hold Calcium/Vitamin D (Oyster Shell/ Vit-D (500/200)) 1 tab BID PO Last administ ered on 08/01/18 08:26; Admin Dose 1 TAB; Start 07/28/18 at 21:00 Clonazepam (Klonopin) 0.5 mg BID PRN PO ANXIETY Last administered on 07/31/18 22:32; Admin Dose 0.5 MG; Start 07/28/18 at 21:00 Clonidine (Catapres) 0.1 mg TID PRN PO ELEVATED BLOOD PRESSURE Last administered on 07/29/18 16:54; Admin Dose 0.1 MG; Start 07/28/18 at 21:00 Hydromorphone HCl (Dilaudid) 2 mg Q4H PRN PO SEVERE PAIN LEVEL 7-10 Last administered on 08/01/18 08:26; Admin Dose 2 MG; Start 07/28/18 at 21:00 Docusate Sodium (Colace) 100 mg BID PRN PO CONSTIPATION; Start 07/28/18 at 21:00 Gabapentin (Neurontin) 200 mg BID PO Last administered on 08/01/18 08:40; Admin Dose 200 MG; Start 07/28/18 at 21:00 Atorvastatin Calcium (Lipitor) 10 mg HS PO Last administered on 07/31/18 21:32; Admin Dose 10 MG; Start 07/28/18 at 21:00 Metoprolol Tartrate (Lopressor) 25 mg BID PO Last administered on 08/01/18 08:27; Admin Dose 25 MG; Start 07/28/18 at 21:00 Magnesium Hydroxide (Milk Of Mag) 30 ml DAILY PRN PO CONSTIPATION; Start 07/28/18 at 21:00 Acetaminophen/ Hydrocodone Bitart ([place] (10/325)) 1 tab Q4H PRN PO MODERATE PAIN LEVEL 4-6 Last administered on 08/01/18 05:43; Admin Dose 1 TAB; Start 07/28/18 at 21:00 Fluoxetine HCl (Prozac) 20 mg DAILY PO Last administered on 08/01/18 08:26; Admin Dose 20 MG; Start 07/29/18 at 09:00 Carisoprodol (Soma) 350 mg BID PRN PO MUSCLE SPASMS; Start 07/28/18 at 21:00 Trazodone HCl (Desyrel) 50 mg HS PRN PO INSOMNIA Last administered on 07/29/18 20:29; Admin Dose 50 MG; Start 07/28/18 at 21:00 Acetaminophen (Tylenol Tab) 650 mg Q6H PRN PO MILD PAIN(1-3)OR ELEVATED TEMP; Start 07/28/18 at 21:00 Ondansetron HCl (Zofran Inj) 4 mg Q6H PRN IV NAUSEA AND/OR VOMITING; Start 07/28/18 at 21:00 Methylprednisolone Sodium Succinate (Solu-Medrol) 40 mg DAILY IV Last administered on 08/01/18 08:28; Admin Dose 40 MG; Start 07/29/18 at 09:00 Ascorbic Acid (Vitamin C) 500 mg TID PO Last administered on 08/01/18 08:26; Admin Dose 500 MG; Start 07/29/18 at 09:00 Estrogens Conjugated (Premarin) 0.45 mg DAILY PO Last administered on 08/01/18 08:26; Admin Dose 0.45 MG; Start 07/29/18 at 11:00 Lorazepam (Ativan) 0.5 mg Q6H PRN PO ANXIETY Last administered on 08/01/18 01:34; Admin Dose 0.5 MG; Start 07/29/18 at 20:30 Guaifenesin/ Dextromethorphan (Robitussin Dm Liquid Cup) 5 ml Q4H PRN PO COUGH Last administered on 08/01/18 02:53; Admin Dose 5 ML; Start 07/29/18 at 20:30 Dextrose 1,000 ml @ 50 mls/hr Q20H IV Last administered on 07/31/18 17:27; Admin Dose 50 MLS/HR; Start 07/30/18 at 08:30 Diltiazem HCl 125 ml @ 5 mls/hr TITRATE IV Last administered on 07/30/18 09:40; Admin Dose 5 MLS/HR; Start 07/30/18 at 09:00; Status Hold Dronedarone (Multaq) 400 mg BID WITH MEALS PO Last administered on 08/01/18 08:26; Admin Dose 400 MG; Start 07/30/18 at 09:30 Sildenafil Citrate (Revatio) 10 mg TID PO Last administered on 08/01/18 08:43; Admin Dose 10 MG; Start 07/31/18 at 09:00 Aspirin (Halfprin) 81 mg DAILY PO Last administered on 08/01/18 08:26; Admin Dose 81 MG; Start 08/01/18 at 09:00 JOSÉ CEVALLOS Aug 01, 2018 11:46
[2018-08-01] MEDS: SOD FERRIC GLUC COMPLX 125 MG in SOD CHLORIDE 0.9% 100 ML IVPB SCH (13:25)
--- NOTE | 2018-08-01 14:04 | CONS ---
Consultation Date/Type/Reason Admit Date/Time Jul 28, 2018 at 18:16 Initial Consult Date SUBJECTIVE: Pt is awake, looks comfortable. no fevers. VS stable. T: 97.0 LABS: reviewed. Microbiology: Blood culture growing gram-positive cocci in clusters, influenza swab negative, urine culture negative MRSA swab negative CT of the chest on admission revealed moderate pulmonary fibrosis first at the bilateral lung apices. Associated mediastinal adenopathy. Underlying mass not entirely excluded. Small right multiple loculated pleural effusion. Left renal 4 cm hyperdense cyst or mass dilated pulmonary trunk and bilateral pulmonary arteries compatible with sequela of pulmonary hypertension Antimicrobials: Vancomycin, cefepime Allergies: Penicillin, tetracycline Physical examination: GEN: This is a fragile chronically ill-appearing wasted elderly woman who is awake in no distress. HENT: Head atraumatic normocephalic sclera nonicteric. Neck is supple. PULM: Chest rise symmetrical breath sounds with bilateral rhonchi. Heart: S1-S2. Abdomen soft bowel sounds present Extremities without cyanosis. Assessment: 1. Severe sepsis with gram-positive cocci bacteremia 2. Acute on chronic respiratory failure 3. Healthcare associated pneumonia, possibly strep 4. Chronic pulmonary fibrosis 5. Peripheral arterial disease status post stent 6. Pancreatic head mass, patient is following with a specialist yearly 7. Recent right hip fracture status post surgical intervention Plan: Pt remains stable.Will continue current antibiotics. f/u repeat blood cultures are negative. Pulmonary rec-s Requesting Provider: ABDIAS STAPLES MD Date/Time of Note DATE: 08/01/18 TIME: 14:01 Exam/Review of Systems Exam Vitals Vital Signs Date Temp Pulse Resp B/P (MAP) Pulse Ox O2 O2 Flow FiO2 Time Delivery Rate 08/01/18 70 12:30 08/01/18 97.0 22 120/59 High Flow 11:51 (79) 08/01/18 100 07:46 08/01/18 98 07:44 07/31/18 15.0 09:52 Intake and Output 07/31/18 07/31/18 08/01/18 1515:00 23:00 07:00 IntakeIntake Total 500 ml 760 ml 450 ml OutputOutput Total 800 ml 1200 ml 800 ml BalanceBalance -300 ml -440 ml -350 ml Results Result Diagram: 07/31/18 0545 08/01/18 0552 Results 24hrs Laboratory Tests Test 08/01/18 05:52 08/01/18 07:00 Sodium Level 145 H Potassium Level 4.4 Chloride Level 105 Carbon Dioxide Level 31 Anion Gap 9 Blood Urea Nitrogen 35 H Creatinine 1.20 H Est Glomerular Filtrat Rate mL/min Glucose Level 106 Calcium Level 9.2 Total Bilirubin 0.2 Direct Bilirubin 0.00 Indirect Bilirubin 0.2 Aspartate Amino Transf (AST/SGOT) 110 H Alanine Aminotransferase (ALT/SGPT) 70 H Alkaline Phosphatase 105 Total Protein 6.4 Albumin 3.2 L Globulin 3.20 Albumin/Globulin Ratio 1.00 Blood Gas Specimen Source Blood arterial Arterial Blood Date Drawn 08/01/2018 9:40:34 AM Arterial Blood pH (Temp corrected) 7.389 Arterial Blood pCO2 (Temp correct) 44.2 Arterial Blood pO2 (Temp corrected) 58.1 L Arterial Blood HCO3 26.1 H Arterial Blood Base Excess 0.9 Arterial Blood Oxygen Saturation 89.1 L Vick Test ACCEPTAB Arterial Blood Gas Puncture Site Right Radial Arterial Blood Carboxyhemoglobin 0.2 Arterial Blood Methemoglobin 0.1 Blood Gas A-a O2 Differential 610.7 H Oxyhemoglobin Percent 88.8 L Blood Gas Temperature 37.0 Blood Gas Modality HFNC FiO2 100.0 Blood Gas Notified Whom RT Blood Gas Notified Time 08/01/2018 9:50:17 AM Medications Medication Current Medications Vancomycin HCl (Vanco Iv Per Pharmacy) VANCOMYCIN PER PHARMACY PER PROTOCOL XX ; Start 07/28/18 at 17:30 Cefepime HCl 50 ml @ 100 mls/hr Q12 IVPB Last administered on 08/01/18at 08:27; Admin Dose 100 MLS/HR; Start 07/28/18 at 21:00 Ferric Sodium Gluconate Complex 125 mg/Sodium Chloride 110 ml @ 110 mls/hr DAILY@1300 IVPB Last administered on 08/01/18at 13:25; Admin Dose 110 MLS/HR; Start 07/29/18 at 13:00; Stop 08/02/18 at 13:59 Albuterol/ Ipratropium (Duoneb) 3 ml Q6H RESP THERAPY HHN Last administered on 08/01/18at 13:34; Admin Dose 3 ML; Start 07/28/18 at 20:00 Albuterol/ Ipratropium (Duoneb) 3 ml Q2H RESP THERAPY PRN HHN WHEEZING AND SOB; Start 07/28/18 at 17:30 Pantoprazole (Protonix Iv) 40 mg DAILY@06 IV Last administered on 08/01/18 05:43; Admin Dose 40 MG; Start 07/29/18 at 06:00 Vancomycin HCl 250 ml @ 125 mls/hr Q24H IVPB Last administered on 08/01/18 08:27; Admin Dose 125 MLS/HR; Start 07/29/18 at 09:00 Apixaban (Eliquis) 5 mg BID PO Last administered on 07/28/18 22:30; Admin Dose 5 MG; Start 07/28/18 at 21:00; Status Hold Calcium/Vitamin D (Oyster Shell/ Vit-D (500/200)) 1 tab BID PO Last administered on 08/01/18 08:26; Admin Dose 1 TAB; Start 07/28/18 at 21:00 Clonazepam (Klonopin) 0.5 mg BID PRN PO ANXIETY Last administered on 07/31/18 22:32; Admin Dose 0.5 MG; Start 07/28/18 at 21:00 Clonidine (Catapres) 0.1 mg TID PRN PO ELEVATED BLOOD PRESSURE Last administered on 07/29/18 16:54; Admin Dose 0.1 MG; Start 07/28/18 at 21:00 Hydromorphone HCl (Dilaudid) 2 mg Q4H PRN PO SEVERE PAIN LEVEL 7-10 Last administered on 08/01/18 08:26; Admin Dose 2 MG; Start 07/28/18 at 21:00 Docusate Sodium (Colace) 100 mg BID PRN PO CONSTIPATION; Start 07/28/18 at 21:00 Gabapentin (Neurontin) 200 mg BID PO Last administered on 08/01/18 08:40; Admin Dose 200 MG; Start 07/28/18 at 21:00 Atorvastatin Calcium (Lipitor) 10 mg HS PO Last administered on 07/31/18 21:32; Admin Dose 10 MG; Start 07/28/18 at 21:00 Metoprolol Tartrate (Lopressor) 25 mg BID PO Last administered on 08/01/18 08:27; Admin Dose 25 MG; Start 07/28/18 at 21:00 Magnesium Hydroxide (Milk Of Mag) 30 ml DAILY PRN PO CONSTIPATION; Start 07/28/18 at 21:00 Acetaminophen/ Hydrocodone Bitart ([place] (10/325)) 1 tab Q4H PRN PO MODERATE PAIN LEVEL 4-6 Last administered on 08/01/18 05:43; Admin Dose 1 TAB; Start 07/28/18 at 21:00 Fluoxetine HCl (Prozac) 20 mg DAILY PO Last administered on 08/01/18 08:26; Admin Dose 20 MG; Start 07/29/18 at 09:00 Carisoprodol (Soma) 350 mg BID PRN PO MUSCLE SPASMS; Start 07/28/18 at 21:00 Trazodone HCl (Desyrel) 50 mg HS PRN PO INSOMNIA Last administered on 07/29/18 20:29; Admin Dose 50 MG; Start 07/28/18 at 21:00 Acetaminophen (Tylenol Tab) 650 mg Q6H PRN PO MILD PAIN(1-3)OR ELEVATED TEMP; Start 07/28/18 at 21:00 Ondansetron HCl (Zofran Inj) 4 mg Q6H PRN IV NAUSEA AND/OR VOMITING; Start 07/28/18 at 21:00 Methylprednisolone Sodium Succinate (Solu-Medrol) 40 mg DAILY IV Last administered on 08/01/18 08:28; Admin Dose 40 MG; Start 07/29/18 at 09:00 Ascorbic Acid (Vitamin C) 500 mg TID PO Last administered on 08/01/18 13:25; Admin Dose 500 MG; Start 07/29/18 at 09:00 Estrogens Conjugated (Premarin) 0.45 mg DAILY PO Last administered on 08/01/18 08:26; Admin Dose 0.45 MG; Start 07/29/18 at 11:00 Lorazepam (Ativan) 0.5 mg Q6H PRN PO ANXIETY Last administered on 08/01/18 13:25; Admin Dose 0.5 MG; Start 07/29/18 at 20:30 Guaifenesin/ Dextromethorphan (Robitussin Dm Liquid Cup) 5 ml Q4H PRN PO COUGH Last administered on 08/01/18 02:53; Admin Dose 5 ML; Start 07/29/18 at 20:30 Dextrose 1,000 ml @ 50 mls/hr Q20H IV Last administered on 07/31/18 17:27; Admin Dose 50 MLS/HR; Start 07/30/18 at 08:30 Diltiazem HCl 125 ml @ 5 mls/hr TITRATE IV Last administered on 07/30/18 09:40; Admin Dose 5 MLS/HR; Start 07/30/18 at 09:00; Status Hold Dronedarone (Multaq) 400 mg BID WITH MEALS PO Last administered on 08/01/18 08:26; Admin Dose 400 MG; Start 07/30/18 at 09:30 Sildenafil Citrate (Revatio) 10 mg TID PO Last administered on 08/01/18 13:25; Admin Dose 10 MG; Start 07/31/18 at 09:00 Aspirin (Halfprin) 81 mg DAILY PO Last administered on 08/01/18 08:26; Admin Dose 81 MG; Start 08/01/18 at 09:00 RUPERT MABRY Aug 01, 2018 14:04
[2018-08-01] MEDS: clonAZEPAM 0.5 MG TAB PO PRN ×2 (16:33→23:34)
[2018-08-01] MEDS: DEXTROSE 5% 1,000 ML IV SCH (20:30)
[2018-08-01] MEDS: ATORVASTATIN 10 MG TAB PO SCH (20:54)
[2018-08-02] VITALS (69 sets, daily range): BP systolic 90–210; BP diastolic 48–115; PULSE 75–129; RESP 14–36
[2018-08-02] MEDS ORDERED: NALOXONE (0.4 MG/ML) INJ ONE (01:06)
[2018-08-02] MEDS: ALBUTEROL/IPRATROPIUM (NEB) 3 ML AMP HHN SCH (01:07)
[2018-08-02] MEDS ORDERED: LABETALOL HCL 20MG INJ ONE (01:13)
[2018-08-02] MEDS ORDERED: LORAZEPAM 2 MG INJ ONE (01:17)
[2018-08-02] MEDS ORDERED: NALOXONE (0.4 MG/ML) INJ IV ONE (01:30)
[2018-08-02] MEDS ORDERED: LORAZEPAM 2 MG INJ IV ONE (01:30)
[2018-08-02] MEDS ORDERED: LABETALOL HCL 20MG INJ IV ONE (01:30)
[2018-08-02] MEDS ORDERED: HALOPERIDOL 5 MG INJ ONE (01:34)
[2018-08-02] MEDS ORDERED: FUROSEMIDE 40 MG INJ ONE (01:49)
--- NOTE | 2018-08-02 01:52 | EN ---
Date/Time of Note Date/Time of Note DATE: 08/02/18 TIME: 01:47 Event Note Medicine Medicine Event Note HEALTH AND SAFETY COORDINATOR Note Rapid response was called at approximately 1 AM Patient was noted to be respiratory distress as well as change in mental status Patient earlier was noted to be alert and oriented x4. She asked for her Klonopin and her pain medication. Patient was noted to be also noncompliant with her oxygen treatment. Patient was noted to be altered by the nurse and that she had taken her oxygen off. She was noted to be in respiratory distress And tachypneic. She was lethargic. Pupils were pinpoint bilaterally. She was immediately put on high flow nonrebreather oxygen. Her oxygenation was noted to be in the 80s. Which resulted in her saturations improving to 91% on 6 L. She also was noted to be severely hypertensive and tachycardic. Patient was given a dose of Narcan 0.4 mg which subsequently resulted in her becoming more active however she did appear confused and was mumbling words. Patient was noted to be moving all 4 extremities and try to take off her nonrebreather mask and being noncooperative. She was given a dose of 3 mg of IM Haldol as well as 0.5 Ativan which did subsequently result in her being less agitated. Stat ABG was drawn which showed a pH of 7.33/CO2 to 43/O2 of 115/bicarb of 22.4. She required soft restraints in order to keep the oxygenation on. The patient did settle down agitation why she still remained tachypneic. Chest x-ray did appear to be worse than the previous chest x-ray with bilateral infiltrates/pulmonary congestion. Decision was made to take the patient to the ICU given her tachypnea. Patient is a high risk for intubation. General: Patient initially confused and lethargic, given a dose of Narcan 0.4 mg which did subsequently resulted in the patient being more active but she did remain delirious likely from the effects of benzo and narcotics. CVS: Sinus tachycardia Lungs: Coarse breath sounds bilaterally, tachypnea, rales Neuro: Awake but confused, moving all 4 extremities Stat chest x-ray: Worsening infiltrates/pulmonary congestion/fibrosis, will await official read Assessment and plan: #1 acute on chronic respiratory failure: Currently on nonrebreather and put back on high flow. With consideration for BiPAP. Transfer patient to the ICU for closer monitoring. Low threshold for intubation. Avoid avoid narcotics/benzos as much as possible. We will also give her a dose of steroids as well as 40 of IV Lasix. Stat CBC BMP lactic acid level. Greater than 40 minutes of critical care time spent on care management this patient. KHALIF SCHAEFER Aug 02, 2018 01:52
[2018-08-02] MEDS ORDERED: HALOPERIDOL 5 MG INJ IM ONE (02:00)
[2018-08-02] MEDS ORDERED: FUROSEMIDE 40 MG INJ IV ONE (02:00)
[2018-08-02] MEDS ORDERED: METHYLPREDNISOLONE 125 MG INJ IV ONE (02:30)
[2018-08-02] MEDS: PANTOPRAZOLE 40 MG INJ IV SCH (05:33)
[2018-08-02] MEDS: DEXTROSE 5% 1,000 ML IV SCH (06:31)
[2018-08-02] MEDS: DRONEDARONE HYDROCHLORIDE 400 MG TAB PO SCH ×2 (07:35→17:07)
[2018-08-02] MEDS: CEFEPIME 1GM/50 ML (PMX) 50 ML IVPB SCH ×2 (08:18→20:47)
[2018-08-02] MEDS: METHYLPREDNISOLONE 40 MG INJ IV SCH (08:23)
[2018-08-02] MEDS: METOPROLOL 25 MG TAB PO SCH ×3 (08:52→20:48)
[2018-08-02] MEDS: GABAPENTIN 100 MG CAP PO SCH ×2 (08:52→20:47)
[2018-08-02] MEDS: ASPIRIN (EC) 81 MG TAB PO SCH (08:52)
[2018-08-02] MEDS: ESTROGENS CONJUGATED 0.3 MG TAB PO SCH (08:53)
[2018-08-02] MEDS: CALCIUM/VITAMIN D (500/200) TAB PO SCH ×2 (08:53→20:47)
[2018-08-02] MEDS: FLUOXETINE 20 MG CAP PO SCH (08:53)
[2018-08-02] MEDS: SILDENAFIL 20 MG TAB PO SCH ×3 (08:53→23:45)
[2018-08-02] MEDS: ASCORBIC ACID 500 MG TAB PO SCH ×3 (08:53→20:47)
[2018-08-02] MEDS: VANCOMYCIN 1 GM 250 ML IVPB SCH (09:16)
--- NOTE | 2018-08-02 09:34 | CONS ---
Assessment/Plan Assessment/Plan Assessment/Plan (Daily) Chest x-ray showing ARDS pattern. ABG showing severe hypoxemia and hypercapnia. Assessment recommendations; 1. Patient admitted for severe bilateral pneumonia with ARDS with severe hypoxemic and hypercapnic respiratory failure despite on 100% high flow nasal cannula. 2. Encephalopathy due to hypercapnia. 3. History of recent hip fracture. 4. History of depression. 5. History of hypertension. 6. Anemia. Patient will need to be intubated and put on invasive mechanical ventilation. Meanwhile continue current antibiotics and other supportive measures. Prognosis is poor. We will try to get hold of patient's son for advanced directive. 40 minutes of critical care time was spent evaluating the patient. Consultation Date/Type/Reason Admit Date/Time Jul 28, 2018 at 18:16 Initial Consult Date 07/28/18 Type of Consult Pulmonary Requesting Provider: ABDIAS STAPLES MD Date/Time of Note DATE: 08/02/18 TIME: 09:31 24 HR Interval Summary Free Text/Dictation Patient's condition is critical. A rapid response was called in because of h ypoxemia. Patient has been transferred to ICU. Patient appears lethargic and confused. On high flow nasal cannula at 100% FiO2. General exam; elderly female, appears emaciated. Awake. Tachypneic. Exam/Review of Systems Exam Vitals Vital Signs Date Temp Pulse Resp B/P (MAP) Pulse Ox O2 O2 Flow FiO2 Time Delivery Rate 08/02/18 Vapotherm 08:53 08/02/18 98.6 86 20 147/55 100 08:00 (85) 08/02/18 21 01:10 07/31/18 15.0 09:52 Intake and Output 08/01/18 08/01/18 08/02/18 1515:00 23:00 07:00 IntakeIntake Total 460 ml 25 ml OutputOutput Total 1200 ml 1675 ml BalanceBalance -740 ml -1650 ml Exam HEENT exam; supple neck, no JVD. No lymphadenopathy. Midline trachea. No thyromegaly. Patient is edentulous. There is a prior tracheostomy scar. Chest exam; diffuse bilateral crackles. S1-S2 audible, no murmurs. Regular rhythm. Abdomen exam; soft, scaphoid. No organomegaly. Nondistended. Bowel sounds audible. Extremity exam; no edema. CARD ROOM MANAGER exam; patient is awake responsive but appears occasionally confused. Moves all 4 extremities. Results Result Diagram: 08/02/18 0126 08/02/18 0500 Results 24hrs Laboratory Tests Test 08/02/18 01:09 08/02/18 01:11 08/02/18 01:26 08/02/18 03:00 Bedside Glucose 284 H Blood Gas Blood arterial Blood arterial Specimen Source Arterial Blood 08/02/2018 1:15: 08/02/2018 3:00: Date Drawn 16 AM 45 AM Arterial Blood 7.332 L 7.384 pH (Temp corrected) Arterial Blood 43.3 46.6 H pCO2 (Temp correct) Arterial Blood 115.9 H 74.7 L pO2 (Temp corrected) Arterial Blood 22.4 27.2 H HCO3 Arterial Blood -3.4 L 1.7 Base Excess Arterial Blood 97.7 93.6 L Oxygen Saturatio n Vick Test ACCEPTAB ACCEPTAB Arterial Blood Left Radial Left Radial Gas Puncture Site Arterial 0.6 0.1 Blood Carboxyhem oglobin Arterial Blood 0.1 0.2 Methemoglobin Blood Gas A-a O2 553.8 H 591.7 H Differential Oxyhemoglobin 97.0 93.3 Percent Blood Gas 37.0 37.0 Temperature Blood Gas Actual 33 22 Respiration Rate Blood Gas HFNC HFNC Modality FiO2 100.0 100.0 Blood Gas Ann SCHAEFER MD Critical Value Read Back Blood Gas CHANDLER ARTEAGA Notified Whom Blood Gas 08/02/2018 1:25: 08/02/2018 3:14: Notified Time 05 AM 19 AM White Blood 13.3 H Count Red Blood Count 3.21 L Hemoglobin 10.0 L Hematocrit 33.3 L Mean Corpuscular 103.7 H Volume Mean Corpuscular 31.2 Hemoglobin Mean Corpuscular 30.0 L Hemoglobin Sari nt Red Cell 19.6 H Distribution Width Platelet Count 213 # Mean Platelet 10.0 Volume Immature 0.500 H Granulocytes % Neutrophils % 75.7 Lymphocytes % 18.1 Monocytes % 3.0 Eosinophils % 2.5 Basophils % 0.2 Nucleated Red 0.0 Blood Cells % Immature 0.060 H Granulocytes # Neutrophils # 10.1 H Lymphocytes # 2.4 Monocytes # 0.4 Eosinophils # 0.3 Basophils # 0.0 Nucleated Red 0.0 Blood Cells # Sodium Level 142 Potassium Level 4.6 Chloride Level 100 Carbon Dioxide 26 Level Anion Gap 16 #H Blood Urea 32 H Nitrogen Creatinine 1.11 H Est Glomerular Filtrat Rate mL/min Glucose Level 238 #H Lactic Acid 4.4 *H Level Calcium Level 9.0 Test 08/02/18 05:00 Sodium Level 144 Potassium Level 3.9 Chloride Level 101 Carbon Dioxide 32 H Level Anion Gap 11 Blood Urea 33 H Nitrogen Creatinine 1.11 H Est Glomerular Filtrat Rate mL/min Glucose Level 109 # Calcium Level 9.1 Phosphorus Level 3.1 Magnesium Level 2.2 Total Bilirubin 0.3 Direct Bilirubin 0.00 Indirect 0.3 Bilirubin Aspartate Amino 106 H Transf (AST/SGOT ) Alanine 91 H Aminotransferase (ALT/SGPT) Alkaline 130 H Phosphatase Total Protein 5.9 L Albumin 2.9 L Globulin 3.00 Albumin/Globulin 0.96 Ratio Medications Medication Current Medications Vancomycin HCl (Vanco Iv Per Pharmacy) VANCOMYCIN PER PHARMACY PER PROTOCOL XX ; Start 07/28/18 at 17:30 Cefepime HCl 50 ml @ 100 mls/hr Q12 IVPB Last administered on 08/02/18at 08:18; Admin Dose 100 MLS/HR; Start 07/28/18 at 21:00 Ferric Sodium Gluconate Complex 125 mg/Sodium Chloride 110 ml @ 110 mls/hr DAILY@1300 IVPB Last administered on 08/01/18at 13:25; Admin Dose 110 MLS/HR; Start 07/29/18 at 13:00; Stop 08/02/18 at 13:59 Albuterol/ Ipratropium (Duoneb) 3 ml Q6H RESP THERAPY HHN Last administered on 08/02/18at 01:07; Admin Dose 3 ML; Start 07/28/18 at 20:00 Albuterol/ Ipratropium (Duoneb) 3 ml Q2H RESP THERAPY PRN HHN WHEEZING AND SOB; Start 07/28/18 at 17:30 Pantoprazole (Protonix Iv) 40 mg DAILY@06 IV Last administered on 08/02/18at 05:33; Admin Dose 40 MG; Start 07/29/18 at 06:00 Vancomycin HCl 250 ml @ 125 mls/hr Q24H IVPB Last administered on 08/02/18at 09:16; Admin Dose 125 MLS/HR; Start 07/29/18 at 09:00 Apixaban (Eliquis) 5 mg BID PO Last administered on 07/28/18 22:30; Admin Dose 5 MG; Start 07/28/18 at 21:00; Status Hold Calcium/Vitamin D (Oyster Shell/ Vit-D (500/200)) 1 tab BID PO Last administered on 08/01/18 20:55; Admin Dose 1 TAB; Start 07/28/18 at 21:00 Clonazepam (Klonopin) 0.5 mg BID PRN PO ANXIETY Last administered on 08/01/18 23:34; Admin Dose 0.5 MG; Start 07/28/18 at 21:00 Clonidine (Catapres) 0.1 mg TID PRN PO ELEVATED BLOOD PRESSURE Last administered on 07/29/18 16:54; Admin Dose 0.1 MG; Start 07/28/18 at 21:00 Hydromorphone HCl (Dilaudid) 2 mg Q4H PRN PO SEVERE PAIN LEVEL 7-10 Last administered on 08/01/18 23:34; Admin Dose 2 MG; Start 07/28/18 at 21:00 Docusate Sodium (Colace) 100 mg BID PRN PO CONSTIPATION; Start 07/28/18 at 21:00 Gabapentin (Neurontin) 200 mg BID PO Last administered on 08/01/18 20:56; Admin Dose 200 MG; Start 07/28/18 at 21:00 Atorvastatin Calcium (Lipitor) 10 mg HS PO Last administered on 08/01/18 20:54; Admin Dose 10 MG; Start 07/28/18 at 21:00 Metoprolol Tartrate (Lopressor) 25 mg BID PO Last administered on 08/01/18 20:56; Admin Dose 25 MG; Start 07/28/18 at 21:00 Magnesium Hydroxide (Milk Of Mag) 30 ml DAILY PRN PO CONSTIPATION; Start 07/28/18 at 21:00 Acetaminophen/ Hydrocodone Bitart ([place] (10/325)) 1 tab Q4H PRN PO MODERATE PAIN LEVEL 4-6 Last administered on 08/01/18 21:02; Admin Dose 1 TAB; Start 07/28/18 at 21:00 Fluoxetine HCl (Prozac) 20 mg DAILY PO Last administered on 08/01/18 08:26; Admin Dose 20 MG; Start 07/29/18 at 09:00 Carisoprodol (Soma) 350 mg BID PRN PO MUSCLE SPASMS; Start 07/28/18 at 21:00 Trazodone HCl (Desyrel) 50 mg HS PRN PO INSOMNIA Last administered on 07/29/18 20:29; Admin Dose 50 MG; Start 07/28/18 at 21:00 Acetaminophen (Tylenol Tab) 650 mg Q6H PRN PO MILD PAIN(1-3)OR ELEVATED TEMP; Start 07/28/18 at 21:00 Ondansetron HCl (Zofran Inj) 4 mg Q6H PRN IV NAUSEA AND/OR VOMITING; Start at 21:00 Methylprednisolone Sodium Succinate (Solu-Medrol) 40 mg DAILY IV Last administered on 08/02/18 08:23; Admin Dose 40 MG; Start 07/29/18 at 09:00 Ascorbic Acid (Vitamin C) 500 mg TID PO Last administered on 08/01/18 20:55; Admin Dose 500 MG; Start 07/29/18 at 09:00 Estrogens Conjugated (Premarin) 0.45 mg DAILY PO Last administered on 08/01/18 08:26; Admin Dose 0.45 MG; Start 07/29/18 at 11:00 Lorazepam (Ativan) 0.5 mg Q6H PRN PO ANXIETY Last administered on 08/01/18 20:56; Admin Dose 0.5 MG; Start 07/29/18 at 20:30 Guaifenesin/ Dextromethorphan (Robitussin Dm Liquid Cup) 5 ml Q4H PRN PO COUGH Last administered on 08/01/18 16:32; Admin Dose 5 ML; Start 07/29/18 at 20:30 Dextrose 1,000 ml @ 50 mls/hr Q20H IV Last administered on 08/02/18 06:31; Admin Dose 50 MLS/HR; Start 07/30/18 at 08:30 Diltiazem HCl 125 ml @ 5 mls/hr TITRATE IV Last administered on 07/30/18 09:40; Admin Dose 5 MLS/HR; Start 07/30/18 at 09:00; Status Hold Dronedarone (Multaq) 400 mg BID WITH MEALS PO Last administered on 08/01/18 18:18; Admin Dose 400 MG; Start 07/30/18 at 09:30 Sildenafil Citrate (Revatio) 10 mg TID PO Last administered on 08/01/18at 20:55; Admin Dose 10 MG; Start 07/31/18 at 09:00 Aspirin (Halfprin) 81 mg DAILY PO Last administered on 08/01/18at 08:26; Admin Dose 81 MG; Start 08/01/18 at 09:00 DEJUAN OSULLIVAN Aug 02, 2018 09:34
[2018-08-02] MEDS ORDERED: PROPOFOL 100 ML ONE (09:45)
[2018-08-02] MEDS: PROPOFOL 100 ML IV SCH ×2 (10:10→23:03)
[2018-08-02] MEDS ORDERED: LIDOCAINE 1% (MPF) 5 ML VIAL SC ONE (10:30)
--- NOTE | 2018-08-02 10:51 | CONS ---
Consultation Date/Type/Reason Admit Date/Time Jul 28, 2018 at 18:16 Initial Consult Date 07/28/18 Type of Consult Cardiology Requesting Provider: ABDIAS STAPLES MD Date/Time of Note DATE: 08/02/18 TIME: 10:48 24 HR Interval Summary Free Text/Dictation 1. Hypoxemic respiratory failure 2. Pulmonary fibrosis/severe COPD 3. Elevated BNP most likely secondary to above and significant pulmonary hypertension 4. paroxysmal atrial fibrillation; currently converted back to normal sinus rhythm 5. Encephalopathy 6. Most likely pneumonia 7. History of recent fall and hip fracture status post surgery 8. Anemia 9. Lactic acidosis 10. Hypertension 11. Pulmonary hypertension overnight pt progressively more short of breath and hypoxic. Transferred to ICU intubated this morning pt hypernatremic will defer further diuresis for now but difficult to assess volume status in the severe diffuse lung processes Subjective hx not possible: pt non-verbal (intubated) Exam/Review of Systems Vital Signs Vitals Vital Signs Date Temp Pulse Resp B/P (MAP) Pulse Ox O2 O2 Flow FiO2 Time Delivery Rate 08/02/18 Vapotherm 08:53 08/02/18 98.6 86 20 147/55 100 08:00 (85) 08/02/18 21 01:10 07/31/18 15.0 09:52 Intake and Output 08/01/18 08/01/18 08/02/18 1515:00 23:00 07:00 IntakeIntake Total 460 ml 25 ml OutputOutput Total 1200 ml 1675 ml BalanceBalance -740 ml -1650 ml Exam Respiratory: congested cough, crackles/rales, diminished breath sounds Cardiovascular: regular rate and rhythm (tahcycardic) Labs Result Diagram: 08/02/18 0126 08/02/18 0500 Results 24hrs Laboratory Tests Test 08/02/18 01:09 08/02/18 01:11 08/02/18 01:26 08/02/18 03:00 Bedside Glucose 284 H Blood Gas Blood arterial Blood arterial Specimen Source Arterial Blood 08/02/2018 1:15: 08/02/2018 3:00: Date Drawn 16 AM 45 AM Arterial Blood 7.332 L 7.384 pH (Temp corrected) Arterial Blood 43.3 46.6 H pCO2 (Temp correct) Arterial Blood 115.9 H 74.7 L pO2 (Temp corrected) Arterial Blood 22.4 27.2 H HCO3 Arterial Blood -3.4 L 1.7 Base Excess Arterial Blood 97.7 93.6 L Oxygen Saturatio n Vick Test ACCEPTAB ACCEPTAB Arterial Blood Left Radial Left Radial Gas Puncture Site Arterial 0.6 0.1 Blood Carboxyhem oglobin Arterial Blood 0.1 0.2 Methemoglobin Blood Gas A-a O2 553.8 H 591.7 H Differential Oxyhemoglobin 97.0 93.3 Percent Blood Gas 37.0 37.0 Temperature Blood Gas Actual 33 22 Respiration Rate Blood Gas HFNC HFNC Modality FiO2 100.0 100.0 Blood Gas Ann SCHAEFER MD Critical Value Read Back Blood Gas CHANDLER ARTEAGA Notified Whom Blood Gas 08/02/2018 1:25: 08/02/2018 3:14: Notified Time 05 AM 19 AM White Blood 13.3 H Count Red Blood Count 3.21 L Hemoglobin 10.0 L Hematocrit 33.3 L Mean Corpuscular 103.7 H Volume Mean Corpuscular 31.2 Hemoglobin Mean Corpuscular 30.0 L Hemoglobin Sari nt Red Cell 19.6 H Distribution Width Platelet Count 213 # Mean Platelet 10.0 Volume Immature 0.500 H Granulocytes % Neutrophils % 75.7 Lymphocytes % 18.1 Monocytes % 3.0 Eosinophils % 2.5 Basophils % 0.2 Nucleated Red 0.0 Blood Cells % Immature 0.060 H Granulocytes # Neutrophils # 10.1 H Lymphocytes # 2.4 Monocytes # 0.4 Eosinophils # 0.3 Basophils # 0.0 Nucleated Red 0.0 Blood Cells # Sodium Level 142 Potassium Level 4.6 Chloride Level 100 Carbon Dioxide 26 Level Anion Gap 16 #H Blood Urea 32 H Nitrogen Creatinine 1.11 H Est Glomerular Filtrat Rate mL/min Glucose Level 238 #H Lactic Acid 4.4 *H Level Calcium Level 9.0 Test 08/02/18 05:00 Sodium Level 144 Potassium Level 3.9 Chloride Level 101 Carbon Dioxide 32 H Level Anion Gap 11 Blood Urea 33 H Nitrogen Creatinine 1.11 H Est Glomerular Filtrat Rate mL/min Glucose Level 109 # Calcium Level 9.1 Phosphorus Level 3.1 Magnesium Level 2.2 Total Bilirubin 0.3 Direct Bilirubin 0.00 Indirect 0.3 Bilirubin Aspartate Amino 106 H Transf (AST/SGOT ) Alanine 91 H Aminotransferase (ALT/SGPT) Alkaline 130 H Phosphatase Total Protein 5.9 L Albumin 2.9 L Globulin 3.00 Albumin/Globulin 0.96 Ratio Medications Medications Current Medications Vancomycin HCl (Vanco Iv Per Pharmacy) VANCOMYCIN PER PHARMACY PER PROTOCOL XX ; Start 07/28/18 at 17:30 Cefepime HCl 50 ml @ 100 mls/hr Q12 IVPB Last administered on 08/02/18 08:18; Admin Dose 100 MLS/HR; Start 07/28/18 at 21:00 Ferric Sodium Gluconate Complex 125 mg/Sodium Chloride 110 ml @ 110 mls/hr DAILY@1300 IVPB Last administered on 08/01/18 13:25; Admin Dose 110 MLS/HR; Start 07/29/18 at 13:00; Stop 08/02/18 at 13:59 Albuterol/ Ipratropium (Duoneb) 3 ml Q6H RESP THERAPY HHN Last administered on 08/02/18 01:07; Admin Dose 3 ML; Start 07/28/18 at 20:00 Pantoprazole (Protonix Iv) 40 mg DAILY@06 IV Last administered on 08/02/18at 05:33; Admin Dose 40 MG; Start 07/29/18 at 06:00 Vancomycin HCl 250 ml @ 125 mls/hr Q24H IVPB Last administered on 08/02/18 09:16; Admin Dose 125 MLS/HR; Start 07/29/18 at 09:00 Apixaban (Eliquis) 5 mg BID PO Last administered on 07/28/18at 22:30; Admin Dose 5 MG; Start 07/28/18 at 21:00; Status Hold Calcium/Vitamin D ([place]yster [place]/ Vit-D (500/200)) 1 tab BID PO Last administered on 08/01/18at 20:55; Admin Dose 1 TAB; Start 07/28/18 at 21:00 Clonazepam (Klonopin) 0.5 mg BID PRN PO ANXIETY Last administered on 08/01/18 23:34; Admin Dose 0.5 MG; Start 07/28/18 at 21:00 Clonidine (Catapres) 0.1 mg TID PRN PO ELEVATED BLOOD PRESSURE Last administered on 07/29/18 16:54; Admin Dose 0.1 MG; Start 07/28/18 at 21:00 Hydromorphone HCl (Dilaudid) 2 mg Q4H PRN PO SEVERE PAIN LEVEL 7-10 Last administered on 08/01/18 23:34; Admin Dose 2 MG; Start 07/28/18 at 21:00 Docusate Sodium (Colace) 100 mg BID PRN PO CONSTIPATION; Start 07/28/18 at 21:00 Gabapentin (Neurontin) 200 mg BID PO Last administered on 08/01/18 20:56; Admin Dose 200 MG; Start 07/28/18 at 21:00 Atorvastatin Calcium (Lipitor) 10 mg HS PO Last administered on 08/01/18 20:54; Admin Dose 10 MG; Start 07/28/18 at 21:00 Metoprolol Tartrate (Lopressor) 25 mg BID PO Last administered on 08/01/18 20:56; Admin Dose 25 MG; Start 07/28/18 at 21:00 Magnesium Hydroxide (Milk Of Mag) 30 ml DAILY PRN PO CONSTIPATION; Start 07/28/18 at 21:00 Acetaminophen/ Hydrocodone Bitart ([place] (10/325)) 1 tab Q4H PRN PO MODERATE PAIN LEVEL 4-6 Last administered on 08/01/18 21:02; Admin Dose 1 TAB; Start 07/28/18 at 21:00 Fluoxetine HCl (Prozac) 20 mg DAILY PO Last administered on 08/01/18 08:26; Admin Dose 20 MG; Start 07/29/18 at 09:00 Carisoprodol (Soma) 350 mg BID PRN PO MUSCLE SPASMS; Start 07/28/18 at 21:00 Trazodone HCl (Desyrel) 50 mg HS PRN PO INSOMNIA Last administered on 07/29/18 20:29; Admin Dose 50 MG; Start 07/28/18 at 21:00 Acetaminophen (Tylenol Tab) 650 mg Q6H PRN PO MILD PAIN(1-3)OR ELEVATED TEMP; Start 07/28/18 at 21:00 Ondansetron HCl (Zofran Inj) 4 mg Q6H PRN IV NAUSEA AND/OR VOMITING; Start 07/28/18 at 21:00 Methylprednisolone Sodium Succinate (Solu-Medrol) 40 mg DAILY IV Last administered on 08/02/18 08:23; Admin Dose 40 MG; Start 07/29/18 at 09:00 Ascorbic Acid (Vitamin C) 500 mg TID PO Last administered on 08/01/18 20:55; Admin Dose 500 MG; Start 07/29/18 at 09:00 Estrogens Conjugated (Premarin) 0.45 mg DAILY PO Last administered on 08/01/18 08:26; Admin Dose 0.45 MG; Start 07/29/18 at 11:00 Lorazepam (Ativan) 0.5 mg Q6H PRN PO ANXIETY Last administered on 08/01/18 20:56; Admin Dose 0.5 MG; Start 07/29/18 at 20:30 Guaifenesin/ Dextromethorphan (Robitussin Dm Liquid Cup) 5 ml Q4H PRN PO COUGH Last administered on 08/01/18 16:32; Admin Dose 5 ML; Start 07/29/18 at 20:30 Dextrose 1,000 ml @ 50 mls/hr Q20H IV Last administered on 08/02/18 06:31; Admin Dose 50 MLS/HR; Start 07/30/18 at 08:30 Diltiazem HCl 125 ml @ 5 mls/hr TITRATE IV Last administered on 07/30/18 09:40; Admin Dose 5 MLS/HR; Start 07/30/18 at 09:00; Status Hold Dronedarone (Multaq) 400 mg BID WITH MEALS PO Last administered on 08/01/18 18:18; Admin Dose 400 MG; Start 07/30/18 at 09:30 Sildenafil Citrate (Revatio) 10 mg TID PO Last administered on 08/01/18 20:55; Admin Dose 10 MG; Start 07/31/18 at 09:00 Aspirin (Halfprin) 81 mg DAILY PO Last administered on 08/01/18 08:26; Admin Dose 81 MG; Start 08/01/18 at 09:00 Propofol 100 ml @ 1.986 mls/ hr Q12H IV Last administered on 08/02/18 10:10; Admin Dose 1.986 MLS/HR; Start 08/02/18 at 10:00 TIA ENRIQUEZ MD Aug 02, 2018 10:51
--- NOTE | 2018-08-02 11:07 | PN ---
DATE: 08/02/2018 SUBJECTIVE: The patient is critically ill, was transferred from telemetry to intensive care unit. T he patient remains on high flow oxygen. No other events noted. No hemoptysis, hematemesis, hematoch ezia. OBJECTIVE: VITAL SIGNS: Blood pressure is 131/52, respirations 21, pulse 86, temperature 98.5. HEENT: Head is normocephalic. NECK: Supple. HEART: Regular rate. LUNGS: Show diminished breath sounds at base. ABDOMEN: Soft, nontender to palpation without rebound or guarding. EXTREMITIES: Negative for clubbing, cyanosis, no edema. DERMATOLOGIC: No rashes. MUSCULOSKELETAL: No joint effusions. NEUROLOGIC: No change in exam. MEDICATIONS: Reviewed. LABORATORY DATA: Shows sodium 144, potassium 3.9, BUN 33, creatinine 1.11. Lactic acid is 4.4. Whi te count 7.38, CO2 of 46, base excess of 1.7. IMAGING STUDIES: Chest x-ray was reviewed. ASSESSMENT AND PLAN: 1. Nonoliguric acute kidney injury with unknown baseline creatinine. Etiology of acute kidney injur y was secondary to hemodynamics, diuretics, questionable recent contrast use. The patient's renal fu nction continues to fluctuate, but overall stable. At this point, would continue current treatment p lans, supportive care, renally dose all meds, monitor renal function closely. 2. Hypernatremia, improving. Continue to encourage free water intake. Continue D5 water. 3. Anemia. Monitor hemoglobin and hematocrit levels. 4. Mineral bone disorder, monitor calcium and phosphorus levels. 5. Acute hypoxic respiratory failure secondary to pneumonia, pulmonary fibrosis. Continue medical m anagement and high flow oxygen, nebulizers, steroids. Follow up with pulmonary. 6. Encephalopathy, etiology toxic metabolic. Continue to monitor. 7. Atrial fibrillation. Continue current medical management. Follow up with cardiology. 8. Anxiety, depression. Continue current treatment. 9. Hemoptysis secondary to pneumonia. Continue current medical management. 10. History of peripheral vascular disease. 11. Status post right hip fracture. 12. Pancreatic head mass. 13. Sepsis secondary to Gram-positive cocci bacteremia, healthcare-associated pneumonia. Continue c urrent antibiotic regimen. Please note, I spent over 30 minutes of critical care time with this patient. Dictated By: GENEVIEVE BERNSTEIN/MARLENY Conf#: [id number] [facility]#: [id number] CC: ABDIAS STAPLES MD;*[facility]*
--- NOTE | 2018-08-02 11:43 | PN ---
Date/Time of Note Date/Time of Note DATE: 08/02/18 TIME: 11:42 Assessment/Plan VTE Prophylaxis Risk score (from [facility] [place])>0 risk: 10 SCD applied (from [facility] [place]): Yes Pharmacological prophylaxis: LMWH Lines/Catheters IV Catheter Type (from [facility]): Peripheral IV Urinary Cath still in place: Yes Reason Cath still needed: skin wounds contaminated by urine Assessment/Plan Hospital Course 1. Acute hypoxemic respiratory failure. Now on ventilator. Continue breathing treatment. 2. Severe sepsis with Gram-positive cocci bacteremia. Continue IV vancomycin. 3. Possible healthcare-associated pneumonia. Continue cefepime. 4. Secondary pulmonary hypertension. The patient is on Revatio. 5. Peripheral vascular disease, status post stenting. Continue aspirin for now. 6. Right hip fracture. No acute issue. Continue range of motion. The patient is currently not a candidate for acute rehabilitation. 7. Depression and anxiety. Continue Prozac. 8. Neuropathy. Continue gabapentin. 9. Paroxysmal atrial fibrillation. Continue metoprolol for heart rate control and also, the patient has been started on Multaq. Result Diagram: 08/02/18 0126 08/02/18 0500 Results 24hrs Laboratory Tests Test 08/02/18 01:09 08/02/18 01:11 08/02/18 01:26 08/02/18 03:00 Bedside Glucose 284 H Blood Gas Blood arterial Blood arterial Specimen Source Arterial Blood 08/02/2018 1:15: 08/02/2018 3:00: Date Drawn 16 AM 45 AM Arterial Blood 7.332 L 7.384 pH (Temp corrected) Arterial Blood 43.3 46.6 H pCO2 (Temp correct) Arterial Blood 115.9 H 74.7 L pO2 (Temp corrected) Arterial Blood 22.4 27.2 H HCO3 Arterial Blood -3.4 L 1.7 Base Excess Arterial Blood 97.7 93.6 L Oxygen Saturatio n Vick Test ACCEPTAB ACCEPTAB Arterial Blood Left Radial Left Radial Gas Puncture Site Arterial 0.6 0.1 Blood Carboxyhem oglobin Arterial Blood 0.1 0.2 Methemoglobin Blood Gas A-a O2 553.8 H 591.7 H Differential Oxyhemoglobin 97.0 93.3 Percent Blood Gas 37.0 37.0 Temperature Blood Gas Actual 33 22 Respiration Rate Blood Gas HFNC HFNC Modality FiO2 100.0 100.0 Blood Gas SILVANO, M MD Critical Value Read Back Blood Gas CHANDLER ARTEAGA Notified Whom Blood Gas 08/02/2018 1:25: 08/02/2018 3:14: Notified Time 05 AM 19 AM White Blood 13.3 H Count Red Blood Count 3.21 L Hemoglobin 10.0 L Hematocrit 33.3 L Mean Corpuscular 103.7 H Volume Mean Corpuscular 31.2 Hemoglobin Mean Corpuscular 30.0 L Hemoglobin Sari nt Red Cell 19.6 H Distribution Width Platelet Count 213 # Mean Platelet 10.0 Volume Immature 0.500 H Granulocytes % Neutrophils % 75.7 Lymphocytes % 18.1 Monocytes % 3.0 Eosinophils % 2.5 Basophils % 0.2 Nucleated Red 0.0 Blood Cells % Immature 0.060 H Granulocytes # Neutrophils # 10.1 H Lymphocytes # 2.4 Monocytes # 0.4 Eosinophils # 0.3 Basophils # 0.0 Nucleated Red 0.0 Blood Cells # Sodium Level 142 Potassium Level 4.6 Chloride Level 100 Carbon Dioxide 26 Level Anion Gap 16 #H Blood Urea 32 H Nitrogen Creatinine 1.11 H Est Glomerular Filtrat Rate mL/min Glucose Level 238 #H Lactic Acid 4.4 *H Level Calcium Level 9.0 Test 08/02/18 05:00 08/02/18 11:00 Sodium Level 144 Potassium Level 3.9 Chloride Level 101 Carbon Dioxide 32 H Level Anion Gap 11 Blood Urea 33 H Nitrogen Creatinine 1.11 H Est Glomerular Filtrat Rate mL/min Glucose Level 109 # Calcium Level 9.1 Phosphorus Level 3.1 Magnesium Level 2.2 Total Bilirubin 0.3 Direct Bilirubin 0.00 Indirect 0.3 Bilirubin Aspartate Amino 106 H Transf (AST/SGOT ) Alanine 91 H Aminotransferase (ALT/SGPT) Alkaline 130 H Phosphatase Total Protein 5.9 L Albumin 2.9 L Globulin 3.00 Albumin/Globulin 0.96 Ratio Blood Gas Blood arterial Specimen Source Arterial Blood 08/02/2018 11:10 Date Drawn :29 AM Arterial Blood 7.244 *L pH (Temp corrected) Arterial Blood 68.9 H pCO2 (Temp correct) Arterial Blood 150.7 H pO2 (Temp corrected) Arterial Blood 29.1 H HCO3 Arterial Blood 0.3 Base Excess Arterial Blood 98.4 Oxygen Saturatio n Vick Test ACCEPTAB Arterial Blood Left Radial Gas Puncture Site Arterial 0.5 Blood Carboxyhem oglobin Arterial Blood 0.2 Methemoglobin Blood Gas A-a O2 493.4 H Differential Oxyhemoglobin 97.7 Percent Blood Gas 37.0 Temperature Blood Gas 14.0 Respiration Rate Blood Gas Actual 14 Respiration Rate Blood Gas VENT - AC Modality FiO2 100.0 Blood Gas Tidal 450.0 Volume Blood Gas Low 5.0 PEEP Setting Blood Gas EDGAR HERNANDEZ RN Critical Value Read Back Blood Gas RT Notified Whom Blood Gas 08/02/2018 11:16 Notified Time :20 AM Subjective 24 Hr Interval Summary Free Text/Dictation Patient worsened since yesterday and had to be intubated Exam/Review of Systems Exam Vitals Vital Signs Date Temp Pulse Resp B/P (MAP) Pulse Ox O2 O2 Flow FiO2 Time Delivery Rate 08/02/18 100 10:00 08/02/18 Vapotherm 08:53 08/02/18 98.6 86 20 147/55 100 08:00 (85) 07/31/18 15.0 09:52 Intake and Output 08/01/18 08/01/18 08/02/18 1414:59 22:59 06:59 IntakeIntake Total 460 ml OutputOutput Total 1200 ml 1550 ml BalanceBalance -740 ml -1550 ml Constitutional: well developed Head: normocephalic, atraumatic Neck: supple Respiratory: diminished breath sounds Cardiovascular: regular rate and rhythm Gastrointestinal: soft, non-tender Extremities: normal pulses Results Results 24hrs Laboratory Tests Test 08/02/18 01:09 08/02/18 01:11 08/02/18 01:26 08/02/18 03:00 Bedside Glucose 284 H Blood Gas Blood arterial Blood arterial Specimen Source Arterial Blood 08/02/2018 1:15: 08/02/2018 3:00: Date Drawn 16 AM 45 AM Arterial Blood 7.332 L 7.384 pH (Temp corrected) Arterial Blood 43.3 46.6 H pCO2 (Temp correct) Arterial Blood 115.9 H 74.7 L pO2 (Temp corrected) Arterial Blood 22.4 27.2 H HCO3 Arterial Blood -3.4 L 1.7 Base Excess Arterial Blood 97.7 93.6 L Oxygen Saturatio n Vick Test ACCEPTAB ACCEPTAB Arterial Blood Left Radial Left Radial Gas Puncture Site Arterial 0.6 0.1 Blood Carboxyhem oglobin Arterial Blood 0.1 0.2 Methemoglobin Blood Gas A-a O2 553.8 H 591.7 H Differential Oxyhemoglobin 97.0 93.3 Percent Blood Gas 37.0 37.0 Temperature Blood Gas Actual 33 22 Respiration Rate Blood Gas HFNC HFNC Modality FiO2 100.0 100.0 Blood Gas Ann SCAHEFER MD Critical Value Read Back Blood Gas CHANDLER ARTEAGA Notified Whom Blood Gas 08/02/2018 1:25: 08/02/2018 3:14: Notified Time 05 AM 19 AM White Blood 13.3 H Count Red Blood Count 3.21 L Hemoglobin 10.0 L Hematocrit 33.3 L Mean Corpuscular 103.7 H Volume Mean Corpuscular 31.2 Hemoglobin Mean Corpuscular 30.0 L Hemoglobin Sari nt Red Cell 19.6 H Distribution Width Platelet Count 213 # Mean Platelet 10.0 Volume Immature 0.500 H Granulocytes % Neutrophils % 75.7 Lymphocytes % 18.1 Monocytes % 3.0 Eosinophils % 2.5 Basophils % 0.2 Nucleated Red 0.0 Blood Cells % Immature 0.060 H Granulocytes # Neutrophils # 10.1 H Lymphocytes # 2.4 Monocytes # 0.4 Eosinophils # 0.3 Basophils # 0.0 Nucleated Red 0.0 Blood Cells # Sodium Level 142 Potassium Level 4.6 Chloride Level 100 Carbon Dioxide 26 Level Anion Gap 16 #H Blood Urea 32 H Nitrogen Creatinine 1.11 H Est Glomerular Filtrat Rate mL/min Glucose Level 238 #H Lactic Acid 4.4 *H Level Calcium Level 9.0 Test 08/02/18 05:00 08/02/18 11:00 Sodium Level 144 Potassium Level 3.9 Chloride Level 101 Carbon Dioxide 32 H Level Anion Gap 11 Blood Urea 33 H Nitrogen Creatinine 1.11 H Est Glomerular Filtrat Rate mL/min Glucose Level 109 # Calcium Level 9.1 Phosphorus Level 3.1 Magnesium Level 2.2 Total Bilirubin 0.3 Direct Bilirubin 0.00 Indirect 0.3 Bilirubin Aspartate Amino 106 H Transf (AST/SGOT ) Alanine 91 H Aminotransferase (ALT/SGPT) Alkaline 130 H Phosphatase Total Protein 5.9 L Albumin 2.9 L Globulin 3.00 Albumin/Globulin 0.96 Ratio Blood Gas Blood arterial Specimen Source Arterial Blood 08/02/2018 11:10 Date Drawn :29 AM Arterial Blood 7.244 *L pH (Temp corrected) Arterial Blood 68.9 H pCO2 (Temp correct) Arterial Blood 150.7 H pO2 (Temp corrected) Arterial Blood 29.1 H HCO3 Arterial Blood 0.3 Base Excess Arterial Blood 98.4 Oxygen Saturatio n Vick Test ACCEPTAB Arterial Blood Left Radial Gas Puncture Site Arterial 0.5 Blood Carboxyhem oglobin Arterial Blood 0.2 Methemoglobin Blood Gas A-a O2 493.4 H Differential Oxyhemoglobin 97.7 Percent Blood Gas 37.0 Temperature Blood Gas 14.0 Respiration Rate Blood Gas Actual 14 Respiration Rate Blood Gas VENT - AC Modality FiO2 100.0 Blood Gas Tidal 450.0 Volume Blood Gas Low 5.0 PEEP Setting Blood Gas EDGAR HERNANDEZ RN Critical Value Read Back Blood Gas RT Notified Whom Blood Gas 08/02/2018 11:16 Notified Time :20 AM Medications Medication Current Medications Vancomycin HCl (Vanco Iv Per Pharmacy) VANCOMYCIN PER PHARMACY PER PROTOCOL XX ; Start 07/28/18 at 17:30 Cefepime HCl 50 ml @ 100 mls/hr Q12 IVPB Last administered on 08/02/18at 08:18; Admin Dose 100 MLS/HR; Start 07/28/18 at 21:00 Ferric Sodium Gluconate Complex 125 mg/Sodium Chloride 110 ml @ 110 mls/hr DAILY@1300 IVPB Last administered on 08/01/18at 13:25; Admin Dose 110 MLS/HR; Start 07/29/18 at 13:00; Stop 08/02/18 at 13:59 Albuterol/ Ipratropium (Duoneb) 3 ml Q6H RESP THERAPY HHN Last administered on 08/02/18at 01:07; Admin Dose 3 ML; Start 07/28/18 at 20:00 Pantoprazole (Protonix Iv) 40 mg DAILY@06 IV Last administered on 08/02/18at 05:33; Admin Dose 40 MG; Start 07/29/18 at 06:00 Vancomycin HCl 250 ml @ 125 mls/hr Q24H IVPB Last administered on 08/02/18at 0 9:16; Admin Dose 125 MLS/HR; Start 07/29/18 at 09:00 Apixaban (Eliquis) 5 mg BID PO Last administered on 07/28/18at 22:30; Admin Dose 5 MG; Start 07/28/18 at 21:00; Status Hold Calcium/Vitamin D (Oyster Shell/ Vit-D (500/200)) 1 tab BID PO Last administered on 08/01/18 20:55; Admin Dose 1 TAB; Start 07/28/18 at 21:00 Clonazepam (Klonopin) 0.5 mg BID PRN PO ANXIETY Last administered on 08/01/18 23:34; Admin Dose 0.5 MG; Start 07/28/18 at 21:00 Clonidine (Catapres) 0.1 mg TID PRN PO ELEVATED BLOOD PRESSURE Last administered on 07/29/18 16:54; Admin Dose 0.1 MG; Start 07/28/18 at 21:00 Hydromorphone HCl (Dilaudid) 2 mg Q4H PRN PO SEVERE PAIN LEVEL 7-10 Last administered on 08/01/18 23:34; Admin Dose 2 MG; Start 07/28/18 at 21:00 Docusate Sodium (Colace) 100 mg BID PRN PO CONSTIPATION; Start 07/28/18 at 21:00 Gabapentin (Neurontin) 200 mg BID PO Last administered on 08/01/18 20:56; Admin Dose 200 MG; Start 07/28/18 at 21:00 Atorvastatin Calcium (Lipitor) 10 mg HS PO Last administered on 08/01/18 20:54; Admin Dose 10 MG; Start 07/28/18 at 21:00 Metoprolol Tartrate (Lopressor) 25 mg BID PO Last administered on 08/01/18 20:56; Admin Dose 25 MG; Start 07/28/18 at 21:00 Magnesium Hydroxide (Milk Of Mag) 30 ml DAILY PRN PO CONSTIPATION; Start 07/28/18 at 21:00 Acetaminophen/ Hydrocodone Bitart ([place] (10/325)) 1 tab Q4H PRN PO MODERATE PAIN LEVEL 4-6 Last administered on 08/01/18 21:02; Admin Dose 1 TAB; Start 07/28/18 at 21:00 Fluoxetine HCl (Prozac) 20 mg DAILY PO Last administered on 08/01/18 08:26; Admin Dose 20 MG; Start 07/29/18 at 09:00 Carisoprodol (Soma) 350 mg BID PRN PO MUSCLE SPASMS; Start 07/28/18 at 21:00 Trazodone HCl (Desyrel) 50 mg HS PRN PO INSOMNIA Last administered on 07/29/18 20:29; Admin Dose 50 MG; Start 07/28/18 at 21:00 Acetaminophen (Tylenol Tab) 650 mg Q6H PRN PO MILD PAIN(1-3)OR ELEVATED TEMP; Start 07/28/18 at 21:00 Ondansetron HCl (Zofran Inj) 4 mg Q6H PRN IV NAUSEA AND/OR VOMITING; Start 07/28/18 at 21:00 Methylprednisolone Sodium Succinate (Solu-Medrol) 40 mg DAILY IV Last administered on 08/02/18 08:23; Admin Dose 40 MG; Start 07/29/18 at 09:00 Ascorbic Acid (Vitamin C) 500 mg TID PO Last administered on 08/01/18 20:55; Admin Dose 500 MG; Start 07/29/18 at 09:00 Estrogens Conjugated (Premarin) 0.45 mg DAILY PO Last administered on 08/01/18 08:26; Admin Dose 0.45 MG; Start 07/29/18 at 11:00 Lorazepam (Ativan) 0.5 mg Q6H PRN PO ANXIETY Last administered on 08/01/18 20:56; Admin Dose 0.5 MG; Start 07/29/18 at 20:30 Guaifenesin/ Dextromethorphan (Robitussin Dm Liquid Cup) 5 ml Q4H PRN PO COUGH Last administered on 08/01/18 16:32; Admin Dose 5 ML; Start 07/29/18 at 20:30 Dextrose 1,000 ml @ 50 mls/hr Q20H IV Last administered on 08/02/18 06:31; Admin Dose 50 MLS/HR; Start 07/30/18 at 08:30 Diltiazem HCl 125 ml @ 5 mls/hr TITRATE IV Last administered on 07/30/18 09:40; Admin Dose 5 MLS/HR; Start 07/30/18 at 09:00; Status Hold Dronedarone (Multaq) 400 mg BID WITH MEALS PO Last administered on 08/01/18 18:18; Admin Dose 400 MG; Start 07/30/18 at 09:30 Sildenafil Citrate (Revatio) 10 mg TID PO Last administered on 08/01/18 20:55; Admin Dose 10 MG; Start 07/31/18 at 09:00 Aspirin (Halfprin) 81 mg DAILY PO Last administered on 1/26/19at 08:26; Admin Dose 81 MG; Start 08/01/18 at 09:00 Propofol 100 ml @ 1.986 mls/ hr Q12H IV Last administered on 08/02/18at 10:10; Admin Dose 1.986 MLS/HR; Start 08/02/18 at 10:00 Albuterol (Ventolin Hfa) 4 puff Q6H RESP THERAPY INH ; Start 08/02/18 at 14:00; Status UNV Ipratropium [place] (Atrovent Hfa) 4 puff Q6H RESP THERAPY INH ; Start 08/02/18 at 14:00; Status UNV JOSÉ CEVALLOS Aug 02, 2018 11:43
[2018-08-02] MEDS: SOD FERRIC GLUC COMPLX 125 MG in SOD CHLORIDE 0.9% 100 ML IVPB SCH (12:30)
--- NOTE | 2018-08-02 15:15 | CONS ---
Assessment/Plan Assessment/Plan Hospital Course (Demo Recall) Patient was intubated this a.m. currently in ICU sedated in no distress afebrile Temperature 98.5 pulse 115 respirations 19 blood pressure 145/71 saturation 100% on vent WBC 13.3 H&H 10 and 33.3 platelets 230 neutrophils 75.7 BUN 33 creatinine 1.1 lactic acid this morning 4.4 AST 106 ALT 91 alk phos 130 Microbiology: Blood culture on admission grew coag negative staph species, repeat blood cultures negative, sputum culture grew Ivania albicans Chest x-ray this morning revealed persistent diffuse bilateral nodular lung markings unchanged Indwelling: Endotracheal tube, NG tube, [place] Antimicrobials: Vancomycin, cefepime Allergies: Penicillin, tetracycline Physical examination: This is a fragile chronically ill-appearing wasted elderly woman who is in no distress. Head atraumatic normocephalic sclera nonicteric. Neck is supple. Chest rise symmetrical breath sounds diminished bases. Heart: S1-S2. Abdomen soft bowel sounds present extremities without cyanosis. Assessment: 1. Severe sepsis, present on admission 2. Acute on chronic respiratory failure, status post intubated today 3. Healthcare associated pneumonia/ARDS 4. Coag negative staph bacteremia, possibly contaminant 5. Peripheral arterial disease status post stent 6. Pancreatic head mass, patient is following with a specialist yearly 7. Recent right hip fracture status post surgical intervention Plan: Patient remains stable on vent, but will add fluconazole, continue antibiotics, f/u pulmonary rec-s Consultation Date/Type/Reason Admit Date/Time Jul 28, 2018 at 18:16 Initial Consult Date 07/28/18 Type of Consult id Requesting Provider: ABDIAS STAPLES MD Date/Time of Note DATE: 08/02/18 TIME: 15:12 Exam/Review of Systems Exam Vitals Vital Signs Date Temp Pulse Resp B/P (MAP) Pulse Ox O2 O2 Flow FiO2 Time Delivery Rate 08/02/18 97 24 96 70 13:00 08/02/18 98.5 145/71 Mechanical 12:00 (95) Ventilator 07/31/18 15.0 09:52 Intake and Output 08/01/18 08/01/18 08/02/18 1515:00 23:00 07:00 IntakeIntake Total 460 ml 25 ml OutputOutput Total 1200 ml 1675 ml BalanceBalance -740 ml -1650 ml Results Result Diagram: 08/02/18 0126 08/02/18 0500 Results 24hrs Laboratory Tests Test 08/02/18 01:09 08/02/18 01:11 08/02/18 01:26 08/02/18 03:00 Bedside Glucose 284 H Blood Gas Blood arterial Blood arterial Specimen Source Arterial Blood 08/02/2018 1:15: 08/02/2018 3:00: Date Drawn 16 AM 45 AM Arterial Blood 7.332 L 7.384 pH (Temp corrected) Arterial Blood 43.3 46.6 H pCO2 (Temp correct) Arterial Blood 115.9 H 74.7 L pO2 (Temp corrected) Arterial Blood 22.4 27.2 H HCO3 Arterial Blood -3.4 L 1.7 Base Excess Arterial Blood 97.7 93.6 L Oxygen Saturatio n Vick Test ACCEPTAB ACCEPTAB Arterial Blood Left Radial Left Radial Gas Puncture Site Arterial 0.6 0.1 Blood Carboxyhem oglobin Arterial Blood 0.1 0.2 Methemoglobin Blood Gas A-a O2 553.8 H 591.7 H Differential Oxyhemoglobin 97.0 93.3 Percent Blood Gas 37.0 37.0 Temperature Blood Gas Actual 33 22 Respiration Rate Blood Gas HFNC HFNC Modality FiO2 100.0 100.0 Blood Gas Ann SCHAEFER MD Critical Value Read Back Blood Gas CHANDLER ARTEAGA Notified Whom Blood Gas 08/02/2018 1:25: 08/02/2018 3:14: Notified Time 05 AM 19 AM White Blood 13.3 H Count Red Blood Count 3.21 L Hemoglobin 10.0 L Hematocrit 33.3 L Mean Corpuscular 103.7 H Volume Mean Corpuscular 31.2 Hemoglobin Mean Corpuscular 30.0 L Hemoglobin Sari nt Red Cell 19.6 H Distribution Width Platelet Count 213 # Mean Platelet 10.0 Volume Immature 0.500 H Granulocytes % Neutrophils % 75.7 Lymphocytes % 18.1 Monocytes % 3.0 Eosinophils % 2.5 Basophils % 0.2 Nucleated Red 0.0 Blood Cells % Immature 0.060 H Granulocytes # Neutrophils # 10.1 H Lymphocytes # 2.4 Monocytes # 0.4 Eosinophils # 0.3 Basophils # 0.0 Nucleated Red 0.0 Blood Cells # Sodium Level 142 Potassium Level 4.6 Chloride Level 100 Carbon Dioxide 26 Level Anion Gap 16 #H Blood Urea 32 H Nitrogen Creatinine 1.11 H Est Glomerular Filtrat Rate mL/min Glucose Level 238 #H Lactic Acid 4.4 *H Level Calcium Level 9.0 Test 08/02/18 05:00 08/02/18 11:00 Sodium Level 144 Potassium Level 3.9 Chloride Level 101 Carbon Dioxide 32 H Level Anion Gap 11 Blood Urea 33 H Nitrogen Creatinine 1.11 H Est Glomerular Filtrat Rate mL/min Glucose Level 109 # Calcium Level 9.1 Phosphorus Level 3.1 Magnesium Level 2.2 Total Bilirubin 0.3 Direct Bilirubin 0.00 Indirect 0.3 Bilirubin Aspartate Amino 106 H Transf (AST/SGOT ) Alanine 91 H Aminotransferase (ALT/SGPT) Alkaline 130 H Phosphatase Total Protein 5.9 L Albumin 2.9 L Globulin 3.00 Albumin/Globulin 0.96 Ratio Blood Gas Blood arterial Specimen Source Arterial Blood 08/02/2018 11:10 Date Drawn :29 AM Arterial Blood 7.244 *L pH (Temp corrected) Arterial Blood 68.9 H pCO2 (Temp correct) Arterial Blood 150.7 H pO2 (Temp corrected) Arterial Blood 29.1 H HCO3 Arterial Blood 0.3 Base Excess Arterial Blood 98.4 Oxygen Saturatio n Vick Test ACCEPTAB Arterial Blood Left Radial Gas Puncture Site Arterial 0.5 Blood Carboxyhem oglobin Arterial Blood 0.2 Methemoglobin Blood Gas A-a O2 493.4 H Differential Oxyhemoglobin 97.7 Percent Blood Gas 37.0 Temperature Blood Gas 14.0 Respiration Rate Blood Gas Actual 14 Respiration Rate Blood Gas VENT - AC Modality FiO2 100.0 Blood Gas Tidal 450.0 Volume Blood Gas Low 5.0 PEEP Setting Blood Gas EDGAR HERNANDEZ RN Critical Value Read Back Blood Gas RT Notified Whom Blood Gas 08/02/2018 11:16 Notified Time :20 AM Medications Medication Current Medications Vancomycin HCl (Vanco Iv Per Pharmacy) VANCOMYCIN PER PHARMACY PER PROTOCOL XX ; Start 07/28/18 at 17:30 Cefepime HCl 50 ml @ 100 mls/hr Q12 IVPB Last administered on 08/02/18at 08:18; Admin Dose 100 MLS/HR; Start 07/28/18 at 21:00 Albuterol/ Ipratropium (Duoneb) 3 ml Q6H RESP THERAPY HHN Last administered on 08/02/18at 01:07; Admin Dose 3 ML; Start 07/28/18 at 20:00; Status Hold Pantoprazole (Protonix Iv) 40 mg DAILY@06 IV Last administered on 08/02/18 05:33; Admin Dose 40 MG; Start 07/29/18 at 06:00 Vancomycin HCl 250 ml @ 125 mls/hr Q24H IVPB Last administered on 08/02/18 09:16; Admin Dose 125 MLS/HR; Start 07/29/18 at 09:00 Apixaban (Eliquis) 5 mg BID PO Last administered on 07/28/18 22:30; Admin Dose 5 MG; Start 07/28/18 at 21:00; Status Hold Calcium/Vitamin D ([place]/ Vit-D (500/200)) 1 tab BID PO Last administered on 08/01/18 20:55; Admin Dose 1 TAB; Start 07/28/18 at 21:00 Clonazepam (Klonopin) 0.5 mg BID PRN PO ANXIETY Last administered on 08/01/18 23:34; Admin Dose 0.5 MG; Start 07/28/18 at 21:00 Clonidine (Catapres) 0.1 mg TID PRN PO ELEVATED BLOOD PRESSURE Last administered on 07/29/18 16:54; Admin Dose 0.1 MG; Start 07/28/18 at 21:00 Hydromorphone HCl (Dilaudid) 2 mg Q4H PRN PO SEVERE PAIN LEVEL 7-10 Last administered on 08/01/18 23:34; Admin Dose 2 MG; Start 07/28/18 at 21:00 Docusate Sodium (Colace) 100 mg BID PRN PO CONSTIPATION; Start 07/28/18 at 21:00 Gabapentin (Neurontin) 200 mg BID PO Last administered on 08/01/18 20:56; Admin Dose 200 MG; Start 07/28/18 at 21:00 Atorvastatin Calcium (Lipitor) 10 mg HS PO Last administered on 08/01/18 20:54; Admin Dose 10 MG; Start 07/28/18 at 21:00 Metoprolol Tartrate (Lopressor) 25 mg BID PO Last administered on 08/02/18 12:30; Admin Dose 25 MG; Start 07/28/18 at 21:00 Magnesium Hydroxide (Milk Of Mag) 30 ml DAILY PRN PO CONSTIPATION; Start 07/28/18 at 21:00 Acetaminophen/ Hydrocodone Bitart ([place] (10/325)) 1 tab Q4H PRN PO MODERATE PAIN LEVEL 4-6 Last administered on 08/01/18 21:02; Admin Dose 1 TAB; Start 07/28/18 at 21:00 Fluoxetine HCl (Prozac) 20 mg DAILY PO Last administered on 08/01/18 08:26; Admin Dose 20 MG; Start 07/29/18 at 09:00 Carisoprodol (Soma) 350 mg BID PRN PO MUSCLE SPASMS; Start 07/28/18 at 21:00 Trazodone HCl (Desyrel) 50 mg HS PRN PO INSOMNIA Last administered on 07/29/18 20:29; Admin Dose 50 MG; Start 07/28/18 at 21:00 Acetaminophen (Tylenol Tab) 650 mg Q6H PRN PO MILD PAIN(1-3)OR ELEVATED TEMP; Start 07/28/18 at 21:00 Ondansetron HCl (Zofran Inj) 4 mg Q6H PRN IV NAUSEA AND/OR VOMITING; Start 07/28/18 at 21:00 Methylprednisolone Sodium Succinate (Solu-Medrol) 40 mg DAILY IV Last administered on 08/02/18 08:23; Admin Dose 40 MG; Start 07/29/18 at 09:00 Ascorbic Acid (Vitamin C) 500 mg TID PO Last administered on 08/02/18 12:29; Admin Dose 500 MG; Start 07/29/18 at 09:00 Estrogens Conjugated (Premarin) 0.45 mg DAILY PO Last administered on 08/01/18 08:26; Admin Dose 0.45 MG; Start 07/29/18 at 11:00 Lorazepam (Ativan) 0.5 mg Q6H PRN PO ANXIETY Last administered on 08/01/18 20:56; Admin Dose 0.5 MG; Start 07/29/18 at 20:30 Guaifenesin/ Dextromethorphan (Robitussin Dm Liquid Cup) 5 ml Q4H PRN PO COUGH Last administered on 08/01/18 16:32; Admin Dose 5 ML; Start 07/29/18 at 20:30 Dextrose 1,000 ml @ 50 mls/hr Q20H IV Last administered on 08/02/18 06:31; Admin Dose 50 MLS/HR; Start 07/30/18 at 08:30 Diltiazem HCl 125 ml @ 5 mls/hr TITRATE IV Last administered on 07/30/18at 09:40; Admin Dose 5 MLS/HR; Start 07/30/18 at 09:00; Status Hold Dronedarone (Multaq) 400 mg BID WITH MEALS PO Last administered on 08/01/18at 18:18; Admin Dose 400 MG; Start 07/30/18 at 09:30 Sildenafil Citrate (Revatio) 10 mg TID PO Last administered on 08/02/18at 14:42; Admin Dose 10 MG; Start 07/31/18 at 09:00 Aspirin (Halfprin) 81 mg DAILY PO Last administered on 08/01/18at 08:26; Admin Dose 81 MG; Start 08/01/18 at 09:00 Propofol 100 ml @ 1.986 mls/ hr Q12H IV Last administered on 08/02/18at 10:10; Admin Dose 1.986 MLS/HR; Start 08/02/18 at 10:00 Albuterol (Ventolin Hfa) 4 puff Q6H RESP THERAPY INH ; Start 08/02/18 at 14:00 Ipratropium [place] (Atrovent Hfa) 4 puff Q6H RESP THERAPY INH ; Start 08/02/18 at 14:00 Miscellaneous Information (*Rx Drug Level Order Reminder*) VANC TR AT 0800 ONCE ONCE XX ; Start 08/03/18 at 08:00; Stop 08/03/18 at 08:01 ANDREW SMITH NP Aug 02, 2018 15:15
[2018-08-02] MEDS: IPRATROPIUM (HFA) 12.9 GM INHALER INH SCH ×2 (15:21→19:29)
[2018-08-02] MEDS: ALBUTEROL HFA 8 GM INHALER INH SCH ×2 (15:21→19:29)
[2018-08-02] MEDS: FLUCONAZOLE 100 MG/50 ML (PMX) 50 ML IVPB SCH (17:27)
[2018-08-02] MEDS: ATORVASTATIN 10 MG TAB PO SCH (20:47)
[2018-08-03] VITALS (73 sets, daily range): BP systolic 86–138; BP diastolic 36–88; PULSE 74–135; RESP 14–34
[2018-08-03] MEDS: IPRATROPIUM (HFA) 12.9 GM INHALER INH SCH ×4 (01:22→19:12)
[2018-08-03] MEDS: ALBUTEROL HFA 8 GM INHALER INH SCH ×4 (01:22→19:11)
[2018-08-03] MEDS: DEXTROSE 5% 1,000 ML IV SCH (05:16)
[2018-08-03] MEDS: PANTOPRAZOLE 40 MG INJ IV SCH (06:08)
--- NOTE | 2018-08-03 07:39 | CONS ---
Assessment/Plan Assessment/Plan Assessment/Plan (Daily) Chest x-ray from today is pending. Ventilator setting; AC of 18, tidal volume 450, PEEP of 5, 60% FiO2. Patient is currently on propofol at 25 mics per kilogram per minute. Assessment and recommendations; 1 patient admitted with severe bilateral pneumonia with ARDS requiring intubation. 2. Hypercapnic respiratory failure as well. 3. Systemic hypertension and pulmonary hypertension. 4. History of prior tracheostomy with decannulation. 5. Recent femoral surgery. Malou are in place. Continue current supportive care. Obtain ABG. Remove malou from thigh. Further recommendations once chest x-ray and ABG are performed. Meanwhile start tube feeding. 35 minutes of critical care time was spent evaluating the patient. Consultation Date/Type/Reason Admit Date/Time Jul 28, 2018 at 18:16 Initial Consult Date 07/28/18 Type of Consult Pulmonary Requesting Provider: ABDIAS STAPLES MD Date/Time of Note DATE: 08/03/18 TIME: 07:36 24 HR Interval Summary Free Text/Dictation Patient's condition remains critical. Had to be intubated yesterday morning for respiratory failure due to severe pneumonia. Patient however has remained hemod ynamically stable. General exam; elderly female, orally intubated, sedated, currently no distress. Exam/Review of Systems Exam Vitals Vital Signs Date Temp Pulse Resp B/P (MAP) Pulse Ox O2 O2 Flow FiO2 Time Delivery Rate 08/03/18 91 22 122/49 100 Mechanical 06:45 (73) Ventilator 08/03/18 60 05:25 08/03/18 98.5 04:00 07/31/18 15.0 09:52 Intake and Output 08/02/18 08/02/18 08/03/18 1414:59 22:59 06:59 IntakeIntake Total 683.944 ml 556.6 ml 377.29 ml OutputOutput Total 540 ml 260 ml 450 ml BalanceBalance 143.944 ml 296.6 ml -72.71 ml Exam HEENT exam; supple neck, no JVD. No lymphadenopathy. Midline trachea. No thyromegaly. Orally intubated. Patient is edentulous. There is a well-healed prior tracheostomy scar. Chest exam; diminished breath sounds bilaterally without any crackles. S1-S2 audible, no murmurs. Regular rhythm. Abdomen exam; soft, scaphoid. No organomegaly. Bowel sounds audible. Extremity exam; no peripheral edema. Patient has a multiple ecchymosis. There are malou applied in right lateral mid and lower thigh. [employer] exam; patient is sedated. Results Result Diagram: 08/02/18 0126 08/03/18 0452 Results 24hrs Laboratory Tests Test 08/02/18 11:00 08/03/18 04:52 Blood Gas Specimen Source Blood arterial Arterial Blood Date Drawn 08/02/2018 11:10:29 AM Arterial Blood pH (Temp corrected) 7.244 *L Arterial Blood pCO2 (Temp correct) 68.9 H Arterial Blood pO2 (Temp corrected) 150.7 H Arterial Blood HCO3 29.1 H Arterial Blood Base Excess 0.3 Arterial Blood Oxygen Saturation 98.4 Vick Test ACCEPTAB Arterial Blood Gas Puncture Site Left Radial Arterial Blood Carboxyhemoglobin 0.5 Arterial Blood Methemoglobin 0.2 Blood Gas A-a O2 Differential 493.4 H Oxyhemoglobin Percent 97.7 Blood Gas Temperature 37.0 Blood Gas Respiration Rate 14.0 Blood Gas Actual Respiration Rate 14 Blood Gas Modality VENT - AC FiO2 100.0 Blood Gas Tidal Volume 450.0 Blood Gas Low PEEP Setting 5.0 Blood Gas Critical Value Read Back EDGAR HERNANDEZ RN Blood Gas Notified Whom RT Blood Gas Notified Time 08/02/2018 11:16:20 AM Sodium Level 144 Potassium Level 3.9 Chloride Level 103 Carbon Dioxide Level 29 Anion Gap 12 Blood Urea Nitrogen 42 H Creatinine 1.08 H Est Glomerular Filtrat Rate mL/min Glucose Level 121 Calcium Level 9.3 Total Bilirubin 0.3 Direct Bilirubin 0.00 Indirect Bilirubin 0.3 Aspartate Amino Transf (AST/SGOT) 90 H Alanine Aminotransferase (ALT/SGPT) 71 H Alkaline Phosphatase 125 H Total Protein 5.6 L Albumin 2.8 L Globulin 2.80 Albumin/Globulin Ratio 1.00 Medications Medication Current Medications Vancomycin HCl (Vanco Iv Per Pharmacy) VANCOMYCIN PER PHARMACY PER PROTOCOL XX ; Start 07/28/18 at 17:30 Cefepime HCl 50 ml @ 100 mls/hr Q12 IVPB Last administered on 08/02/18at 20:47; Admin Dose 100 MLS/HR; Start 07/28/18 at 21:00 Albuterol/ Ipratropium (Duoneb) 3 ml Q6H RESP THERAPY HHN Last administered on 08/02/18 01:07; Admin Dose 3 ML; Start 07/28/18 at 20:00; Status Hold Pantoprazole (Protonix Iv) 40 mg DAILY@06 IV Last administered on 08/03/18 06:08; Admin Dose 40 MG; Start 07/29/18 at 06:00 Vancomycin HCl 250 ml @ 125 mls/hr Q24H IVPB Last administered on 08/02/18 09:16; Admin Dose 125 MLS/HR; Start 07/29/18 at 09:00 Apixaban (Eliquis) 5 mg BID PO Last administered on 07/28/18 22:30; Admin Dose 5 MG; Start 07/28/18 at 21:00; Status Hold Calcium/Vitamin D (Oyster Shell/ Vit-D (500/200)) 1 tab BID PO Last administered on 08/02/18 20:47; Admin Dose 1 TAB; Start 07/28/18 at 21:00 Clonazepam (Klonopin) 0.5 mg BID PRN PO ANXIETY Last administered on 08/01/18 23:34; Admin Dose 0.5 MG; Start 07/28/18 at 21:00 Clonidine (Catapres) 0.1 mg TID PRN PO ELEVATED BLOOD PRESSURE Last administered on 07/29/18 16:54; Admin Dose 0.1 MG; Start 07/28/18 at 21:00 Hydromorphone HCl (Dilaudid) 2 mg Q4H PRN PO SEVERE PAIN LEVEL 7-10 Last administered on 08/01/18 23:34; Admin Dose 2 MG; Start 07/28/18 at 21:00 Docusate Sodium (Colace) 100 mg BID PRN PO CONSTIPATION; Start 07/28/18 at 21:00 Gabapentin (Neurontin) 200 mg BID PO Last administered on 08/02/18 20:47; Admin Dose 200 MG; Start 07/28/18 at 21:00 Atorvastatin Calcium (Lipitor) 10 mg HS PO Last administered on 08/02/18 20:47; Admin Dose 10 MG; Start 07/28/18 at 21:00 Metoprolol Tartrate (Lopressor) 25 mg BID PO Last administered on 08/02/18 20:48; Admin Dose 25 MG; Start 07/28/18 at 21:00 Magnesium Hydroxide (Milk Of Mag) 30 ml DAILY PRN PO CONSTIPATION; Start 07/28/18 at 21:00 Acetaminophen/ Hydrocodone Bitart ([place] (10/325)) 1 tab Q4H PRN PO MODERATE PAIN LEVEL 4-6 Last administered on 08/01/18 21:02; Admin Dose 1 TAB; Start 07/28/18 at 21:00 Fluoxetine HCl (Prozac) 20 mg DAILY PO Last administered on 08/01/18 08:26; Admin Dose 20 MG; Start 07/29/18 at 09:00 Carisoprodol (Soma) 350 mg BID PRN PO MUSCLE SPASMS; Start 07/28/18 at 21:00 Trazodone HCl (Desyrel) 50 mg HS PRN PO INSOMNIA Last administered on 07/29/18 20:29; Admin Dose 50 MG; Start 07/28/18 at 21:00 Acetaminophen (Tylenol Tab) 650 mg Q6H PRN PO MILD PAIN(1-3)OR ELEVATED TEMP; Start 07/28/18 at 21:00 Ondansetron HCl (Zofran Inj) 4 mg Q6H PRN IV NAUSEA AND/OR VOMITING; Start 07/28/18 at 21:00 Methylprednisolone Sodium Succinate (Solu-Medrol) 40 mg DAILY IV Last administered on 08/02/18 08:23; Admin Dose 40 MG; Start 07/29/18 at 09:00 Ascorbic Acid (Vitamin C) 500 mg TID PO Last administered on 08/02/18 20:47; Admin Dose 500 MG; Start 07/29/18 at 09:00 Estrogens Conjugated (Premarin) 0.45 mg DAILY PO Last administered on 08/01/18 08:26; Admin Dose 0.45 MG; Start 07/29/18 at 11:00 Lorazepam (Ativan) 0.5 mg Q6H PRN PO ANXIETY Last administered on 08/01/18 20:56; Admin Dose 0.5 MG; Start 07/29/18 at 20:30 Guaifenesin/ Dextromethorphan (Robitussin Dm Liquid Cup) 5 ml Q4H PRN PO COUGH Last administered on 08/01/18 16:32; Admin Dose 5 ML; Start 07/29/18 at 20:30 Dextrose 1,000 ml @ 50 mls/hr Q20H IV Last administered on 08/03/18 05:16; Admin Dose 50 MLS/HR; Start 07/30/18 at 08:30 Diltiazem HCl 125 ml @ 5 mls/hr TITRATE IV Last administered on 07/30/18 09:40; Admin Dose 5 MLS/HR; Start 07/30/18 at 09:00; Status Hold Dronedarone (Multaq) 400 mg BID WITH MEALS PO Last administered on 08/02/18 17:07; Admin Dose 400 MG; Start 07/30/18 at 09:30 Sildenafil Citrate (Revatio) 10 mg TID PO Last administered on 08/02/18 23:45; Admin Dose 10 MG; Start 07/31/18 at 09:00 Aspirin (Halfprin) 81 mg DAILY PO Last administered on 08/01/18 08:26; Admin Dose 81 MG; Start 08/01/18 at 09:00 Propofol 100 ml @ 1.986 mls/ hr Q12H IV Last administered on 08/02/18 23:03; Admin Dose 7.944 MLS/HR; Start 08/02/18 at 10:00 Albuterol (Ventolin Hfa) 4 puff Q6H RESP THERAPY INH Last administered on 08/03/18 01:22; Admin Dose 4 PUFF; Start 08/02/18 at 14:00 Ipratropium [place] (Atrovent Hfa) 4 puff Q6H RESP THERAPY INH Last administered on 08/03/18 01:22; Admin Dose 4 PUFF; Start 08/02/18 at 14:00 Miscellaneous Information (*Rx Drug Level Order Reminder*) VANC TR AT 0800 ONCE ONCE XX ; Start 08/03/18 at 08:00; Stop 08/03/18 at 08:01 Fluconazole/ Sodium Chloride 50 ml @ 50 mls/hr Q24H IVPB Last administered on 08/02/18 17:27; Admin Dose 50 MLS/HR; Start 08/02/18 at 17:00 DEJUAN OSULLIVAN Aug 03, 2018 07:39
--- NOTE | 2018-08-03 08:28 | PN ---
DATE: 08/03/2018 SUBJECTIVE: The patient is critically ill. Overnight, the patient was in respiratory distress requi ring intubation. The patient currently remains on IV hydration. Urinary output has been adequate. No other events noted. OBJECTIVE: VITAL SIGNS: Blood pressure is 122/49, respirations 22, pulse 91. I's and O's have been reviewed. HEENT: Head is normocephalic. NECK: Supple. HEART: Regular rate. LUNGS: Show diminished breath sounds at the base. ABDOMEN: Soft, nontender to palpation without rebound or guarding. EXTREMITIES: Negative for clubbing, cyanosis, no edema. DERMATOLOGIC: No rashes. MUSCULOSKELETAL: No joint effusion. NEUROLOGIC: No change in exam. MEDICATIONS: Reviewed. LABORATORY DATA: Shows sodium 144, potassium 3.9, BUN 42, creatinine 1.08. The patient's CBC is pen ding. ABG shows pH 7.472, pCO2 of 39, base excess of 4.4. The patient's cultures have been reviewed. Sputum culture is growing out josh. ASSESSMENT AND PLAN: 1. Nonoliguric acute kidney injury with unknown baseline creatinine. Etiology of acute kidney injur y is secondary to hemodynamics. Renal function is fluctuating, but overall stable. Continue current treatment plans, supportive care, renally dose all medicines. 2. Hypernatremia, improving. Continue D5 water. We will check the patient's free water flushes onc e patient starts tube feeding. 3. Anemia. Continue to monitor hemoglobin and hematocrit levels. 4. Mineral bone disorder. Monitor calcium and phosphorus levels. 5. Ventilator-dependent respiratory failure. Vent settings and ABG was reviewed. Continue to monit or. 6. Metabolic alkalemia. Etiology is likely secondary to recent diuretic use. Continue to monitor. Currently off diuretics. 7. Encephalopathy, etiology is toxic metabolic. 8. Atrial fibrillation. Continue current medical management. 9. Hemoptysis likely secondary to pneumonia. Continue to monitor. 10. Sepsis secondary to gram-positive bacteremia, healthcare-associated pneumonia. Continue broad s pectrum antibiotics. Follow up with infectious disease. 11. History of peripheral vascular disease. 12. Status post hip fracture. 13. Pancreatic head mass. Please also note, I spent over 30 minutes of critical care time with this patient. Dictated By: GENEVIEVE BERNSTEIN/MARLENY Conf#: [id number] DID#: [id number] CC: GENEVIEVE MENJIVAR DO; ABDIAS STAPLES MD;*[facility]*
[2018-08-03] MEDS: METOPROLOL 25 MG TAB PO SCH ×3 (09:00→21:51)
[2018-08-03] MEDS: PROPOFOL 100 ML IV SCH ×3 (09:04→23:14)
[2018-08-03] MEDS ORDERED: DOCUSATE SODIUM 10 MG/ML (10ML CUP) GTB PRN (09:30)
[2018-08-03] MEDS ORDERED: ASPIRIN 81 MG TAB GTB SCH (10:00)
[2018-08-03] MEDS: CEFEPIME 1GM/50 ML (PMX) 50 ML IVPB SCH ×2 (10:24→20:25)
[2018-08-03] MEDS: FLUOXETINE 20 MG CAP PO SCH (10:32)
[2018-08-03] MEDS: GABAPENTIN 100 MG CAP PO SCH ×2 (10:32→20:27)
[2018-08-03] MEDS: ASCORBIC ACID 500 MG TAB PO SCH ×3 (10:32→20:27)
[2018-08-03] MEDS: METHYLPREDNISOLONE 40 MG INJ IV SCH (10:32)
[2018-08-03] MEDS: ESTROGENS CONJUGATED 0.3 MG TAB PO SCH (10:33)
[2018-08-03] MEDS: SILDENAFIL 20 MG TAB PO SCH ×3 (10:33→20:27)
[2018-08-03] MEDS: DRONEDARONE HYDROCHLORIDE 400 MG TAB PO SCH ×2 (10:34→17:41)
[2018-08-03] MEDS: CALCIUM/VITAMIN D (500/200) TAB PO SCH ×2 (10:34→20:27)
[2018-08-03] MEDS: VANCOMYCIN 1 GM 250 ML IVPB SCH (11:02)
--- NOTE | 2018-08-03 14:00 | CONS ---
Assessment/Plan Assessment/Plan Hospital Course (Demo Recall) Patient remains intubated and sedated she is in no distress afebrile. WBC 13.3 H&H 10 and 33.3 platelets 213 neutrophils 75.7 BUN 42 creatinine 1.08 Microbiology: Sputum culture growing Ivania albicans, blood culture on admission grew coag negative staph species Involving: Endotracheal tube and NG tube [place] catheter PICC line Chest x-ray revealed mildly improved diffuse interstitial infiltrates. Small patchy alveolar infiltrate in the right lung base unchanged Antimicrobials: Cefepime, vancomycin, fluconazole Allergies: Penicillin, tetracycline Physical examination: This is a fragile chronically ill-appearing wasted elderly woman who is in no distress. Head atraumatic normocephalic sclera nonicteric. Neck is supple. Chest rise symmetrical breath sounds diminished bases. Heart: S1-S2. Abdomen soft bowel sounds present extremities without cyanosis. Assessment: 1. Severe sepsis, present on admission 2. Acute on chronic respiratory failure, status post intubation 08/02/18 3. Healthcare associated pneumonia/ARDS 4. Coag negative staph bacteremia, possibly contaminant 5. Peripheral arterial disease status post stent 6. Pancreatic head mass, patient is following with a specialist yearly 7. Recent right hip fracture status post surgical intervention Plan: Patient remains stable, continue antibiotics, f/u pulmonary rec-s Consultation Date/Type/Reason Admit Date/Time Jul 28, 2018 at 18:16 Initial Consult Date 07/28/18 Type of Consult id Requesting Provider: ABDIAS STAPLES MD Date/Time of Note DATE: 08/03/18 TIME: 13:59 Exam/Review of Systems Exam Vitals Vital Signs Date Temp Pulse Resp B/P (MAP) Pulse Ox O2 O2 Flow FiO2 Time Delivery Rate 08/03/18 96 26 104/40 100 Mechanical 13:30 (61) Ventilator 08/03/18 50 13:16 08/03/18 99.1 12:00 07/31/18 15.0 09:52 Intake and Output 08/02/18 08/02/18 08/03/18 1515:00 23:00 07:00 IntakeIntake Total 710.944 ml 562.5 ml 379.29 ml OutputOutput Total 435 ml 275 ml 515 ml BalanceBalance 275.944 ml 287.5 ml -135.71 ml Results Result Diagram: 08/02/18 0126 08/03/18 0452 Results 24hrs Laboratory Tests Test 08/03/18 04:52 08/03/18 05:00 08/03/18 07:35 08/03/18 07:57 Sodium Level 144 Potassium Level 3.9 Chloride Level 103 Carbon Dioxide 29 Level Anion Gap 12 Blood Urea 42 H Nitrogen Creatinine 1.08 H Est Glomerular Filtrat Rate mL/min Glucose Level 121 Calcium Level 9.3 Total Bilirubin 0.3 Direct Bilirubin 0.00 Indirect 0.3 Bilirubin Aspartate Amino 90 H Transf (AST/SGOT) Alanine 71 H Aminotransferase (ALT/SGPT) Alkaline 125 H Phosphatase Total Protein 5.6 L Albumin 2.8 L Globulin 2.80 Albumin/Globulin 1.00 Ratio Hemoglobin A1c 5.3 Blood Gas Blood arterial Specimen Source Arterial Blood 08/03/2018 7:04:0 Date Drawn 0 AM Arterial Blood pH 7.472 H (Temp corrected) Arterial Blood 39.6 pCO2 (Temp correct) Arterial Blood 99.3 H pO2 (Temp corrected) Arterial Blood 28.3 H HCO3 Arterial Blood 4.4 H Base Excess Arterial Blood 97.1 Oxygen Saturation Vick Test ACCEPTAB Arterial Blood Right Radial Gas Puncture Site Arterial 0.2 Blood Carboxyhemo globin Arterial Blood 0.1 Methemoglobin Blood Gas A-a O2 284.9 H Differential Oxyhemoglobin 96.8 Percent Blood Gas 37.0 Temperature Blood Gas 18.0 Respiration Rate Blood Gas Actual 22 Respiration Rate Blood Gas VENT - AC Modality FiO2 60.0 Blood Gas Tidal 450.0 Volume Blood Gas Low 5.0 PEEP Setting Blood Gas TM Notified Whom Blood Gas 08/03/2018 7:21:0 Notified Time 0 AM Vancomycin Level 18.3 Trough Medications Medication Current Medications Vancomycin HCl (Vanco Iv Per Pharmacy) VANCOMYCIN PER PHARMACY PER PROTOCOL XX ; Start 07/28/18 at 17:30 Cefepime HCl 50 ml @ 100 mls/hr Q12 IVPB Last administered on 08/03/18at 10:24; Admin Dose 100 MLS/HR; Start 07/28/18 at 21:00 Albuterol/ Ipratropium (Duoneb) 3 ml Q6H RESP THERAPY HHN Last administered on 08/02/18at 01:07; Admin Dose 3 ML; Start 07/28/18 at 20:00; Status Hold Pantoprazole (Protonix Iv) 40 mg DAILY@06 IV Last administered on 08/03/18 06:08; Admin Dose 40 MG; Start 07/29/18 at 06:00 Apixaban (Eliquis) 5 mg BID PO Last administered on 07/28/18 22:30; Admin Dose 5 MG; Start 07/28/18 at 21:00; Status Hold Calcium/Vitamin D (Oyster Shell/ Vit-D (500/200)) 1 tab BID PO Last admini stered on 08/03/18 10:34; Admin Dose 1 TAB; Start 07/28/18 at 21:00 Clonazepam (Klonopin) 0.5 mg BID PRN PO ANXIETY Last administered on 08/01/18 23:34; Admin Dose 0.5 MG; Start 07/28/18 at 21:00 Clonidine (Catapres) 0.1 mg TID PRN PO ELEVATED BLOOD PRESSURE Last administered on 07/29/18 16:54; Admin Dose 0.1 MG; Start 07/28/18 at 21:00 Hydromorphone HCl (Dilaudid) 2 mg Q4H PRN PO SEVERE PAIN LEVEL 7-10 Last administered on 08/01/18 23:34; Admin Dose 2 MG; Start 07/28/18 at 21:00 Docusate Sodium (Colace) 100 mg BID PRN PO CONSTIPATION; Start 07/28/18 at 21:00 Gabapentin (Neurontin) 200 mg BID PO Last administered on 08/03/18 10:32; Admin Dose 200 MG; Start 07/28/18 at 21:00 Atorvastatin Calcium (Lipitor) 10 mg HS PO Last administered on 08/02/18 20:47; Admin Dose 10 MG; Start 07/28/18 at 21:00 Metoprolol Tartrate (Lopressor) 25 mg BID PO Last administered on 08/02/18 20:48; Admin Dose 25 MG; Start 07/28/18 at 21:00 Magnesium Hydroxide (Milk Of Mag) 30 ml DAILY PRN PO CONSTIPATION; Start 07/28/18 at 21:00 Acetaminophen/ Hydrocodone Bitart ([place] (10/325)) 1 tab Q4H PRN PO MODERATE PAIN LEVEL 4-6 Last administered on 08/01/18 21:02; Admin Dose 1 TAB; Start 07/28/18 at 21:00 Fluoxetine HCl (Prozac) 20 mg DAILY PO Last administered on 08/03/18 10:32; Admin Dose 20 MG; Start 07/29/18 at 09:00 Carisoprodol (Soma) 350 mg BID PRN PO MUSCLE SPASMS; Start 07/28/18 at 21:00 Trazodone HCl (Desyrel) 50 mg HS PRN PO INSOMNIA Last administered on 07/29/18 20:29; Admin Dose 50 MG; Start 07/28/18 at 21:00 Ondansetron HCl (Zofran Inj) 4 mg Q6H PRN IV NAUSEA AND/OR VOMITING; Start 07/28/18 at 21:00 Methylprednisolone Sodium Succinate (Solu-Medrol) 40 mg DAILY IV Last administered on 08/03/18 10:32; Admin Dose 40 MG; Start 07/29/18 at 09:00 Ascorbic Acid (Vitamin C) 500 mg TID PO Last administered on 08/03/18 12:34; Admin Dose 500 MG; Start 07/29/18 at 09:00 Estrogens Conjugated (Premarin) 0.45 mg DAILY PO Last administered on 08/03/18 10:33; Admin Dose 0.45 MG; Start 07/29/18 at 11:00 Lorazepam (Ativan) 0.5 mg Q6H PRN PO ANXIETY Last administered on 08/01/18 20:56; Admin Dose 0.5 MG; Start 07/29/18 at 20:30 Guaifenesin/ Dextromethorphan (Robitussin Dm Liquid Cup) 5 ml Q4H PRN PO COUGH Last administered on 08/01/18 16:32; Admin Dose 5 ML; Start 07/29/18 at 20:30 Dextrose 1,000 ml @ 50 mls/hr Q20H IV Last administered on 08/03/18 05:16; Admin Dose 50 MLS/HR; Start 07/30/18 at 08:30 Diltiazem HCl 125 ml @ 5 mls/hr TITRATE IV Last administered on 07/30/18 09:40; Admin Dose 5 MLS/HR; Start 07/30/18 at 09:00; Status Hold Dronedarone (Multaq) 400 mg BID WITH MEALS PO Last administered on 08/03/18 10:34; Admin Dose 400 MG; Start 07/30/18 at 09:30 Sildenafil Citrate (Revatio) 10 mg TID PO Last administered on 08/03/18 12:35; Admin Dose 10 MG; Start 07/31/18 at 09:00 Propofol 100 ml @ 1.986 mls/ hr Q12H IV Last administered on 08/03/18 09:04; Admin Dose 19.86 MLS/HR; Start 08/02/18 at 10:00 Albuterol (Ventolin Hfa) 4 puff Q6H RESP THERAPY INH Last administered on 08/03/18 13:15; Admin Dose 4 PUFF; Start 08/02/18 at 14:00 Ipratropium [place] (Atrovent Hfa) 4 puff Q6H RESP THERAPY INH Last administered on 08/03/18 13:15; Admin Dose 4 PUFF; Start 08/02/18 at 14:00 Fluconazole/ Sodium Chloride 50 ml @ 50 mls/hr Q24H IVPB Last administered on 08/02/18 17:27; Admin Dose 50 MLS/HR; Start 08/02/18 at 17:00 Aspirin (Aspirin) 81 mg DAILY GTB Last administered on 08/03/18 10:34; Admin Dose 81 MG; Start 08/03/18 at 10:00 Acetaminophen (Tylenol Liquid) 650 mg Q6H PRN GTB MILD PAIN (1-3) OR TEMPERATURE; Start 08/03/18 at 09:30 Docusate Sodium (Colace Liquid Cup) 100 mg BID PRN GTB CONSTIPATION,,,,; Start 08/03/18 at 09:30 Vancomycin/Sodium Chloride 250 ml @ 125 mls/hr Q24H IVPB ; Start 08/04/18 at 10:00 IV Flush (NS 10 ml) 10 ml PRN PRN IV IV PROTOCOL; Start 08/03/18 at 10:30 ANDREW SMITH NP Aug 03, 2018 14:00
--- NOTE | 2018-08-03 15:46 | PN ---
Date/Time of Note Date/Time of Note DATE: 08/03/18 TIME: 15:39 Assessment/Plan VTE Prophylaxis Risk score (from [place])>0 risk: 13 SCD applied (from [place]): Yes Pharmacological prophylaxis: NA/contraindicated Pharm contraindication: bleeding Lines/Catheters IV Catheter Type (from [facility]): PICC Line Central line still needed: Yes Urinary Cath still in place: Yes Reason Cath still needed: urinary retention Assessment/Plan Hospital Course Patient was intubated for acute respiratory distress yesterday and currently on ventilatory support in ICU patient is sedated on propofol. Assessment/Plan - Anemia of acute blood loss secondary to nosebleed, resolved. status post blood transfusion, continue to monitor hemoglobin and hematocrit. - Acute hypoxemic respiratory failure due to healthcare-acquired pneumonia/ ARDS. Continue ventilatory support. Dr. Oro from pulmonary standpoint. - Sepsis with gram-positive bacteremia. Continue antibiotics per ID. Dr. Brown is following in infection disease consultation. - Bilateral pulmonary fibrosis. Continue supplemental oxygen and symptomatic treatment with steroids. - Chronic obstructive pulmonary disease. Continue DuoNeb and steroids. - Nonobstructive coronary artery disease as per cardiac catheterization in 2012. Dr. Frost is following from cardiac standpoint. - Paroxysmal atrial fibrillation. Patient had an episode of atrial fibrillation with rapid ventricular response and was on Cardizem drip, currently in sinus rhythm. - Hypertension. Continue metoprolol and Lasix. p.r.n. clonidine. - Peripheral artery disease, status post stent. - Dyslipidemia. Continue Lipitor. - MARQUES, Dr. Salazar from nephrology standpoint. - Recent right hip fracture, status post surgery. - Pancreatic head mass. As per patient, she has been going to a specialist every year for followup. - Anxiety and depression, continue Klonopin and Prozac. Further recommendations based on clinical course. Plan of care discussed with Dr. Pack. Result Diagram: 08/02/18 0126 08/03/18 0452 Results 24hrs Laboratory Tests Test 08/03/18 04:52 08/03/18 05:00 08/03/18 07:35 08/03/18 07:57 Sodium Level 144 Potassium Level 3.9 Chloride Level 103 Carbon Dioxide 29 Level Anion Gap 12 Blood Urea 42 H Nitrogen Creatinine 1.08 H Est Glomerular Filtrat Rate mL/min Glucose Level 121 Calcium Level 9.3 Total Bilirubin 0.3 Direct Bilirubin 0.00 Indirect 0.3 Bilirubin Aspartate Amino 90 H Transf (AST/SGOT) Alanine 71 H Aminotransferase (ALT/SGPT) Alkaline 125 H Phosphatase Total Protein 5.6 L Albumin 2.8 L Globulin 2.80 Albumin/Globulin 1.00 Ratio Hemoglobin A1c 5.3 Blood Gas Blood arterial Specimen Source Arterial Blood 08/03/2018 7:04:0 Date Drawn 0 AM Arterial Blood pH 7.472 H (Temp corrected) Arterial Blood 39.6 pCO2 (Temp correct) Arterial Blood 99.3 H pO2 (Temp corrected) Arterial Blood 28.3 H HCO3 Arterial Blood 4.4 H Base Excess Arterial Blood 97.1 Oxygen Saturation Vick Test ACCEPTAB Arterial Blood Right Radial Gas Puncture Site Arterial 0.2 Blood Carboxyhemo globin Arterial Blood 0.1 Methemoglobin Blood Gas A-a O2 284.9 H Differential Oxyhemoglobin 96.8 Percent Blood Gas 37.0 Temperature Blood Gas 18.0 Respiration Rate Blood Gas Actual 22 Respiration Rate Blood Gas VENT - AC Modality FiO2 60.0 Blood Gas Tidal 450.0 Volume Blood Gas Low 5.0 PEEP Setting Blood Gas TM Notified Whom Blood Gas 08/03/2018 7:21:0 Notified Time 0 AM Vancomycin Level 18.3 Trough Exam/Review of Systems Exam Vitals Vital Signs Date Temp Pulse Resp B/P (MAP) Pulse Ox O2 O2 Flow FiO2 Time Delivery Rate 08/03/18 96 26 104/40 100 Mechanical 13:30 (61) Ventilator 08/03/18 50 13:16 08/03/18 99.1 12:00 07/31/18 15.0 09:52 Intake and Output 08/02/18 08/02/18 08/03/18 1515:00 23:00 07:00 IntakeIntake Total 710.944 ml 562.5 ml 379.29 ml OutputOutput Total 435 ml 275 ml 515 ml BalanceBalance 275.944 ml 287.5 ml -135.71 ml Constitutional: frail, other (Orally intubated) ENMT: other (OGT) Neck: supple Respiratory: diminished breath sounds Gastrointestinal: soft, non-tender Extremities: normal pulses Neurological: other (Sedated) Results Results 24hrs Laboratory Tests Test 08/03/18 04:52 08/03/18 05:00 08/03/18 07:35 08/03/18 07:57 Sodium Level 144 Potassium Level 3.9 Chloride Level 103 Carbon Dioxide 29 Level Anion Gap 12 Blood Urea 42 H Nitrogen Creatinine 1.08 H Est Glomerular Filtrat Rate mL/min Glucose Level 121 Calcium Level 9.3 Total Bilirubin 0.3 Direct Bilirubin 0.00 Indirect 0.3 Bilirubin Aspartate Amino 90 H Transf (AST/SGOT) Alanine 71 H Aminotransferase (ALT/SGPT) Alkaline 125 H Phosphatase Total Protein 5.6 L Albumin 2.8 L Globulin 2.80 Albumin/Globulin 1.00 Ratio Hemoglobin A1c 5.3 Blood Gas Blood arterial Specimen Source Arterial Blood 08/03/2018 7:04:0 Date Drawn 0 AM Arterial Blood pH 7.472 H (Temp corrected) Arterial Blood 39.6 pCO2 (Temp correct) Arterial Blood 99.3 H pO2 (Temp corrected) Arterial Blood 28.3 H HCO3 Arterial Blood 4.4 H Base Excess Arterial Blood 97.1 Oxygen Saturation Vick Test ACCEPTAB Arterial Blood Right Radial Gas Puncture Site Arterial 0.2 Blood Carboxyhemo globin Arterial Blood 0.1 Methemoglobin Blood Gas A-a O2 284.9 H Differential Oxyhemoglobin 96.8 Percent Blood Gas 37.0 Temperature Blood Gas 18.0 Respiration Rate Blood Gas Actual 22 Respiration Rate Blood Gas VENT - AC Modality FiO2 60.0 Blood Gas Tidal 450.0 Volume Blood Gas Low 5.0 PEEP Setting Blood Gas TM Notified Whom Blood Gas 08/03/2018 7:21:0 Notified Time 0 AM Vancomycin Level 18.3 Trough Medications Medication Current Medications Vancomycin HCl (Vanco Iv Per Pharmacy) VANCOMYCIN PER PHARMACY PER PROTOCOL XX ; Start 07/28/18 at 17:30 Cefepime HCl 50 ml @ 100 mls/hr Q12 IVPB Last administered on 08/03/18at 10:24; Admin Dose 100 MLS/HR; Start 07/28/18 at 21:00 Albuterol/ Ipratropium (Duoneb) 3 ml Q6H RESP THERAPY HHN Last administered on 08/02/18at 01:07; Admin Dose 3 ML; Start 07/28/18 at 20:00; Status Hold Pantoprazole (Protonix Iv) 40 mg DAILY@06 IV Last administered on 08/03/18at 06:08; Admin Dose 40 MG; Start 07/29/18 at 06:00 Apixaban (Eliquis) 5 mg BID PO Last administered on 07/28/18 22:30; Admin Dose 5 MG; Start 07/28/18 at 21:00; Status Hold Calcium/Vitamin D ([place]/ Vit-D (500/200)) 1 tab BID PO Last administered on 08/03/18 10:34; Admin Dose 1 TAB; Start 07/28/18 at 21:00 Clonazepam (Klonopin) 0.5 mg BID PRN PO ANXIETY Last administered on 08/01/18 23:34; Admin Dose 0.5 MG; Start 07/28/18 at 21:00 Clonidine (Catapres) 0.1 mg TID PRN PO ELEVATED BLOOD PRESSURE Last administered on 07/29/18 16:54; Admin Dose 0.1 MG; Start 07/28/18 at 21:00 Hydromorphone HCl (Dilaudid) 2 mg Q4H PRN PO SEVERE PAIN LEVEL 7-10 Last administered on 08/01/18 23:34; Admin Dose 2 MG; Start 07/28/18 at 21:00 Docusate Sodium (Colace) 100 mg BID PRN PO CONSTIPATION; Start 07/28/18 at 21:00 Gabapentin (Neurontin) 200 mg BID PO Last administered on 08/03/18 10:32; Admin Dose 200 MG; Start 07/28/18 at 21:00 Atorvastatin Calcium (Lipitor) 10 mg HS PO Last administered on 08/02/18 20:47; Admin Dose 10 MG; Start 07/28/18 at 21:00 Metoprolol Tartrate (Lopressor) 25 mg BID PO Last administered on 08/02/18 20:48; Admin Dose 25 MG; Start 07/28/18 at 21:00 Magnesium Hydroxide (Milk Of Mag) 30 ml DAILY PRN PO CONSTIPATION; Start 07/28/18 at 21:00 Acetaminophen/ Hydrocodone Bitart (Kirvin (10/325)) 1 tab Q4H PRN PO MODERATE PAIN LEVEL 4-6 Last administered on 08/01/18 21:02; Admin Dose 1 TAB; Start 07/28/18 at 21:00 Fluoxetine HCl (Prozac) 20 mg DAILY PO Last administered on 08/03/18 10:32; Admin Dose 20 MG; Start 07/29/18 at 09:00 Carisoprodol (Soma) 350 mg BID PRN PO MUSCLE SPASMS; Start 07/28/18 at 21:00 Trazodone HCl (Desyrel) 50 mg HS PRN PO INSOMNIA Last administered on 07/29/18 20:29; Admin Dose 50 MG; Start 07/28/18 at 21:00 Ondansetron HCl (Zofran Inj) 4 mg Q6H PRN IV NAUSEA AND/OR VOMITING; Start 07/28/18 at 21:00 Methylprednisolone Sodium Succinate (Solu-Medrol) 40 mg DAILY IV Last administered on 08/03/18 10:32; Admin Dose 40 MG; Start 07/29/18 at 09:00 Ascorbic Acid (Vitamin C) 500 mg TID PO Last administered on 08/03/18 12:34; Admin Dose 500 MG; Start 07/29/18 at 09:00 Estrogens Conjugated (Premarin) 0.45 mg DAILY PO Last administered on 08/03/18 10:33; Admin Dose 0.45 MG; Start 07/29/18 at 11:00 Lorazepam (Ativan) 0.5 mg Q6H PRN PO ANXIETY Last administered on 08/01/18 20:56; Admin Dose 0.5 MG; Start 07/29/18 at 20:30 Guaifenesin/ Dextromethorphan (Robitussin Dm Liquid Cup) 5 ml Q4H PRN PO COUGH Last administered on 08/01/18 16:32; Admin Dose 5 ML; Start 07/29/18 at 20:30 Dextrose 1,000 ml @ 50 mls/hr Q20H IV Last administered on 08/03/18 05:16; Admin Dose 50 MLS/HR; Start 07/30/18 at 08:30 Diltiazem HCl 125 ml @ 5 mls/hr TITRATE IV Last administered on 07/30/18 09:40; Admin Dose 5 MLS/HR; Start 07/30/18 at 09:00; Status Hold Dronedarone (Multaq) 400 mg BID WITH MEALS PO Last administered on 08/03/18 10:34; Admin Dose 400 MG; Start 07/30/18 at 09:30 Sildenafil Citrate (Revatio) 10 mg TID PO Last administered on 08/03/18 12:35; Admin Dose 10 MG; Start 07/31/18 at 09:00 Propofol 100 ml @ 1.986 mls/ hr Q12H IV Last administered on 08/03/18at 14:35; Admin Dose 11.916 MLS/HR; Start 08/02/18 at 10:00 Albuterol (Ventolin Hfa) 4 puff Q6H RESP THERAPY INH Last administered on 08/03/18 13:15; Admin Dose 4 PUFF; Start 08/02/18 at 14:00 Ipratropium [place] (Atrovent Hfa) 4 puff Q6H RESP THERAPY INH Last administered on 08/03/18at 13:15; Admin Dose 4 PUFF; Start 08/02/18 at 14:00 Fluconazole/ Sodium Chloride 50 ml @ 50 mls/hr Q24H IVPB Last administered on 08/02/18at 17:27; Admin Dose 50 MLS/HR; Start 08/02/18 at 17:00 Aspirin (Aspirin) 81 mg DAILY GTB Last administered on 08/03/18at 10:34; Admin Dose 81 MG; Start 08/03/18 at 10:00 Acetaminophen (Tylenol Liquid) 650 mg Q6H PRN GTB MILD PAIN (1-3) OR TEMPERATURE; Start 08/03/18 at 09:30 Docusate Sodium (Colace Liquid Cup) 100 mg BID PRN GTB CONSTIPATION,,,,; Start 08/03/18 at 09:30 Vancomycin/Sodium Chloride 250 ml @ 125 mls/hr Q24H IVPB ; Start 08/04/18 at 10:00 IV Flush (NS 10 ml) 10 ml PRN PRN IV IV PROTOCOL; Start 08/03/18 at 10:30 RAMÓN VILLALOBOS Aug 03, 2018 15:46
[2018-08-03] MEDS: FLUCONAZOLE 100 MG/50 ML (PMX) 50 ML IVPB SCH (17:41)
--- NOTE | 2018-08-03 19:55 | CONS ---
Consult Date/Type/Reason Admit Date/Time Jul 28, 2018 at 18:16 Initial Consult Date 07/28/18 Type of Consultation: cv Requesting Provider: ABDIAS STAPLES MD Date/Time of Note DATE: 08/03/18 TIME: 19:47 Subjective Cardiology follow-up progress note Subjective: Discussed with the staff and physicians. Telemetry was reviewed. Patient is INTUBATED on vent in ICU he remains in NSR. Objective: General: Elderly female INTUBATED on vent on 40%. HEENT: NC/AT. pupils are equal. round. NECK: + JVD. no stridor. CV regular rate and rhythm systolic murmur; no gallop or rubs. PULM: no wheezing + rhonchi. GI: SOFT, NT, ND, no rebound or guarding Extremity: No significant LE edema. no clubbing. neuro: intubated on vent Psych: calm rectal: deferred : Deferred EKG was personally within normal sinus rhythm with no evidence of ischemia CT pulmonary angiogram done in the emergency room shows: 1. Moderate pulmonary fibrosis, worse at the bilateral lung apices. Associated mediastinal adenopathy. Underlying mass not entirely excluded. Further evaluation with PET-CT may be obtained. 2. Small right multiloculated pleural effusion. Moderate left layering pleural effusion. 3. Streaky bibasilar opacities compatible with atelectasis or pneumonia. 4. Dilated pulmonary trunk and bilateral pulmonary arteries compatible with sequelae of pulmonary hypertension. 5. Left renal 4 cm hyperdense cyst or mass. Further evaluation with multiphase contrast enhanced CT or MR may be obtained. Echocardiogram was personally reviewed which shows: Normal left ventricular systolic function. Normal left ventricular cavity size. Mild concentric left ventricular hypertrophy. Ejection fraction is visually estimated at 55 %. There is mild enlargement of left atrium. Normal appearance of the mitral valve. Mild mitral valve regurgitation. Aortic sclerosis without significant stenosis. Aortic cusps appear mildly calcified. Trileaflet aortic valve. Trace aortic valve regurgitation. Normal appearance of the tricuspid valve. Estimated peak PA systolic pressure 71 mmHg. There is mild tricuspid regurgitation. Normal size and normal respiratory collapse consistent with normal right atrial pressure. Objective Vitals Vital Signs Date Temp Pulse Resp B/P (MAP) Pulse Ox O2 O2 Flow FiO2 Time Delivery Rate 08/03/18 94 27 108/42 98 Mechanical 18:00 (64) Ventilator 08/03/18 40 17:32 08/03/18 99.2 16:00 07/31/18 15.0 09:52 Intake and Output 08/02/18 08/02/18 08/03/18 1414:59 22:59 06:59 IntakeIntake Total 683.944 ml 556.6 ml 377.29 ml OutputOutput Total 540 ml 260 ml 450 ml BalanceBalance 143.944 ml 296.6 ml -72.71 ml Results/Medications Result Diagram: 08/02/18 0126 08/03/18 0452 Results 24 hrs Laboratory Tests Test 08/03/18 04:52 08/03/18 05:00 08/03/18 07:35 08/03/18 07:57 Sodium Level 144 Potassium Level 3.9 Chloride Level 103 Carbon Dioxide 29 Level Anion Gap 12 Blood Urea 42 H Nitrogen Creatinine 1.08 H Est Glomerular Filtrat Rate mL/min Glucose Level 121 Calcium Level 9.3 Total Bilirubin 0.3 Direct Bilirubin 0.00 Indirect 0.3 Bilirubin Aspartate Amino 90 H Transf (AST/SGOT) Alanine 71 H Aminotransferase (ALT/SGPT) Alkaline 125 H Phosphatase Total Protein 5.6 L Albumin 2.8 L Globulin 2.80 Albumin/Globulin 1.00 Ratio Hemoglobin A1c 5.3 Blood Gas Blood arterial Specimen Source Arterial Blood 08/03/2018 7:04:0 Date Drawn 0 AM Arterial Blood pH 7.472 H (Temp corrected) Arterial Blood 39.6 pCO2 (Temp correct) Arterial Blood 99.3 H pO2 (Temp corrected) Arterial Blood 28.3 H HCO3 Arterial Blood 4.4 H Base Excess Arterial Blood 97.1 Oxygen Saturation Vick Test ACCEPTAB Arterial Blood Right Radial Gas Puncture Site Arterial 0.2 Blood Carboxyhemo globin Arterial Blood 0.1 Methemoglobin Blood Gas A-a O2 284.9 H Differential Oxyhemoglobin 96.8 Percent Blood Gas 37.0 Temperature Blood Gas 18.0 Respiration Rate Blood Gas Actual 22 Respiration Rate Blood Gas VENT - AC Modality FiO2 60.0 Blood Gas Tidal 450.0 Volume Blood Gas Low 5.0 PEEP Setting Blood Gas TM Notified Whom Blood Gas 08/03/2018 7:21:0 Notified Time 0 AM Vancomycin Level 18.3 Trough Home Meds Reported Medications Ondansetron Hcl* (Zofran*) 8 Mg Tablet, 8 MG PO Q6H PRN for NAUSEA AND OR VOMITING, TAB 07/28/18 Guaifenesin (Xpect) 400 Mg Tablet, 400 MG PO Q12, TAB 07/28/18 Acetaminophen* (Acetaminophen*) 650 Mg Tablet, 650 MG PO Q6H PRN for PAIN AND OR ELEVATED TEMP, #30 TAB 07/28/18 Trazodone Hcl* (Trazodone Hcl*) 50 Mg Tablet, 50 MG PO QHS, #30 TAB 07/28/18 Carisoprodol* (Carisoprodol*) 350 Mg Tablet, 350 MG PO BID PRN for MUSCLE SPASMS, TAB 07/28/18 Montelukast Sodium* (Singulair*) 10 Mg Tablet, 10 MG PO QHS, #30 TAB 07/28/18 Sennosides* (Senna Lax*) 8.6 Mg Tablet, 2 TAB PO QHS, TAB 07/28/18 Fluoxetine Hcl* (Prozac*) 20 Mg Capsule, 20 MG PO DAILY, CAP 07/28/18 Promethazine Hcl* (Phenergan* Liq) 6.25 Mg/5 Ml Syrup, 12.5 MG PO Q6H PRN for COUGH, ML 07/28/18 Lansoprazole* (Lansoprazole*) 30 Mg Capsule.dr, 30 MG PO DAILY, CAP 07/28/18 Vit C/E/Zn/Coppr/Lutein/Zeaxan (Preservision Areds 2 Softgel) 1 Each Capsule, 2 EACH PO DAILY, CAP 07/28/18 Prednisone* (Prednisone*) 20 Mg Tab, 40 MG PO DAILY, TAB 07/28/18 Chlorhexidine Gluconate (Peridex) 473 Ml Mouthwash, 15 ML MM BID, BOTTLE 07/28/18 Dumont-3 Acid Ethyl Esters (Lovaza) 1 Gm Capsule, 2 GM PO DAILY, CAP 07/28/18 Hydrocodone/Acetaminophen ([place] 10-325 Tablet) 1 Each Tablet, 1 EACH PO Q4 PRN for SEVERE PAIN LEVEL 7-10, TAB 07/28/18 Multivitamins* (Theragran*) 1 Tab Tab, 1 TAB PO DAILY, TAB 07/28/18 Guaifenesin (Guaifenesin) 600 Mg Tablet.sa, 600 MG PO BID, TAB 07/28/18 Magnesium Hydroxide* (Milk Of Magnesia*) 400 Mg/5 Ml Oral.susp, 30 ML PO DAILY PRN for CHEST PAIN, ML 07/28/18 Metoprolol Tartrate* (Lopressor*) 50 Mg Tab, 50 MG PO DAILY, #60 TAB HOLD FOR SBP<110 OR HR<60 07/28/18 Atorvastatin Calcium (Atorvastatin Calcium) 10 Mg Tablet, 10 MG PO QHS, #30 TAB 07/28/18 Lidocaine (Lidocaine) 5 Gm Cream..g., 5 GM TP DAILY 07/28/18 Furosemide* (Lasix*) 20 Mg Tablet, 20 MG PO DAILY, TAB 07/28/18 Lactobacillus Rhamnosus* (Culturelle*) 1 Each Cap.sprink, 1 CAP PO DAILY, CAP 07/28/18 Ipratropium-Albuterol (Ipratropium-Albuterol) 0.5-3 Mg/3 Ml Ampul.neb, 3 ML INHALATION Q4 PRN for SHORTNESS OF BREATH, #30 VIAL 07/28/18 Gabapentin* (Gabapentin*) 100 Mg Capsule, 200 MG PO BID, #180 CAP 07/28/18 Folic Acid* (Folic Acid*) 1 Mg Tablet, 1 MG PO DAILY, TAB 07/28/18 Ferrous Sulfate* (Ferrous Sulfate*) 325 Mg Tabec, 325 MG PO TID, TAB 07/28/18 Estrogens Conjugated* (Premarin*) 0.45 Mg Tablet, 0.45 MG PO DAILY, TAB 07/28/18 Bisacodyl (Dulcolax) 10 Mg Supp.rect, 10 MG RC Q48, SUPP.RECT 07/28/18 Docusate Sodium* (Colace*) 100 Mg Capsule, 100 MG PO QHS PRN for CONSTIPATION, #60 CAP 07/28/18 Hydromorphone Hcl* (Dilaudid*) 2 Mg Tablet, 2 MG PO Q6H PRN for SEVERE PAIN LEVEL 7-10, TAB 07/28/18 Cyanocobalamin* (Vitamin B12*) 500 Mcg Tab, 500 MCG PO DAILY, TAB 07/28/18 Clonidine Hcl* (Clonidine Hcl*) 0.1 Mg Tab, 0.1 MG PO Q8, TAB 07/28/18 Clonazepam* (Clonazepam*) 0.5 Mg Tablet, 0.5 MG PO BID PRN for ANXIETY, TAB 07/28/18 Calcium Carbonate/Vitamin D3 ([place]ysco 500+D Tablet) 1 Each Tablet, 1 EACH PO BID, TAB 07/28/18 Fluticasone/Vilanterol (Breo Ellipta 200-25 Mcg INH) 1 Each Blst.w.dev, 1 PUFF INHALATION DAILY, #1 INHALER 07/28/18 Lorazepam* (Lorazepam*) 0.5 Mg Tablet, 0.5 MG PO Q6 PRN for ANXIETY, TAB 07/28/18 Diphenhydramine Hcl* (Benadryl*) 25 Mg Cap, 25 MG PO Q8 PRN for PRN, CAP 07/28/18 Aspirin* (Aspirin* Chew) 81 Mg Tab.chew, 81 MG PO DAILY, TAB.CHEW 07/28/18 Ascorbic Acid* (Vitamin C*) 500 Mg Capsule.sa, 500 MG PO TID, CAP 07/28/18 Apixaban* (Eliquis*) 5 Mg Tablet, 5 MG PO BID, TAB 07/28/18 Hydrocortisone Acetate (Anusol-Hc) 25 Mg Supp.rect, 25 MG [place] BID PRN for CONSTIPATION, SUPP.RECT 07/28/18 Amiodarone Hcl* (Amiodarone Hcl*) 200 Mg Tablet, 200 MG PO BID, #30 TAB HOLD FOR SBP<110 OR HR<60 07/28/18 Discontinued Reported Medications Potassium Chloride* (KCl*) 40 Meq/30 Ml Soln, 40 MEQ PO DAILY, MEQ 07/28/18 Insulin Human Regular (Novolin-R) 100 Unit/Ml Soln, 0 SC AC MEALS AND BEDTIME SLIDING SCALE 03/22/13 Nitroglycerin* (Nitroglycerin* SL) 0.4 Mg Tab.subl, 0.4 MG SL Q5MIN PRN 03/22/13 Morphine Sulfate* (Morphine*) 2 Mg/1 Ml Cartridge, 2 MG IV Q4 03/22/13 Ipratropium [place]* (Atrovent*) 2.5 Ml Nebu, 0.5 MG NEB Q4 03/22/13 Albuterol Sulfate* (Proventil* Neb) 3 Ml Nebu, 2.5 MG IH Q4 03/22/13 Ondansetron Hcl/Pf (Zofran 4 Mg/2 Ml Vial) 4 Mg/2 Ml Vial, 4 MG IV Q4 03/22/13 Metoprolol Tartrate* (Lopressor* Inj) 5 Mg/5 Ml Ampul, 2.5 MG IV 03/22/13 Loperamide Hcl* (Anti-Diarrhea*) 2 Mg Tablet, 2 MG PO 03/22/13 Acetaminophen* (Acetaminophen*) 325 Mg Tablet, 650 MG PO Q6 PRN 03/22/13 [Acetylcysteine ] No Conflict Check, 600 MG ODT Q12 03/22/13 Acetylcysteine (ACETYLCYSTEINE) 200 Mg/1 Ml Vial, 600 MG IV 03/22/13 Pantoprazole* (Pantoprazole*) 40 Mg Tablet.dr, 40 MG PO 03/22/13 Amiodarone Hcl* (Amiodarone Hcl*) 200 Mg Tablet, 200 MG PO Q12 03/22/13 Isosorbide Mononitrate (Isosorbide Mononitrate) 20 Mg Tablet, 60 MG PO DAILY 03/22/13 Carvedilol* (Carvedilol*) 6.25 Mg Tablet, 6.25 MG PO Q12 03/22/13 [Potassium Cl] No Conflict Check, 40 MEQ PO DAILY 03/22/13 Fluoxetine Hcl* (Fluoxetine Hcl*) 20 Mg Capsule, 2040 MG PO BID 03/22/13 Thyroid,Pork ([employer] THYROID) 60 Mg Tablet, 120 MG PO BID 03/22/13 Digoxin (Lanoxin) 0.25 Mg/5 Ml Solution, 0.125 MG PO DAILY 03/22/13 Clopidogrel Bisulfate (Clopidogrel) 75 Mg Tablet, 75 MG PO DAILY 03/22/13 Simvastatin (Simvastatin) 20 Mg Tablet, 20 MG PO HS 03/22/13 Aspirin (Aspirin) 81 Mg Chew, 81 MG PO DAILY 03/22/13 Medications Current Medications Vancomycin HCl (Vanco Iv Per Pharmacy) VANCOMYCIN PER PHARMACY PER PROTOCOL XX ; Start 07/28/18 at 17:30 Cefepime HCl 50 ml @ 100 mls/hr Q12 IVPB Last administered on 08/03/18at 10:24; Admin Dose 100 MLS/HR; Start 07/28/18 at 21:00 Albuterol/ Ipratropium (Duoneb) 3 ml Q6H RESP THERAPY HHN Last administered on 08/02/18at 01:07; Admin Dose 3 ML; Start 07/28/18 at 20:00; Status Hold Pantoprazole (Protonix Iv) 40 mg DAILY@06 IV Last administered on 08/03/18 06:08; Admin Dose 40 MG; Start 07/29/18 at 06:00 Apixaban (Eliquis) 5 mg BID PO Last administered on 07/28/18 22:30; Admin Dose 5 MG; Start 07/28/18 at 21:00; Status Hold Calcium/Vitamin D (Oyster Shell/ Vit-D (500/200)) 1 tab BID PO Last administered on 08/03/18 10:34; Admin Dose 1 TAB; Start 07/28/18 at 21:00 Clonazepam (Klonopin) 0.5 mg BID PRN PO ANXIETY Last administered on 08/01/18 23:34; Admin Dose 0.5 MG; Start 07/28/18 at 21:00 Clonidine (Catapres) 0.1 mg TID PRN PO ELEVATED BLOOD PRESSURE Last administered on 07/29/18 16:54; Admin Dose 0.1 MG; Start 07/28/18 at 21:00 Hydromorphone HCl (Dilaudid) 2 mg Q4H PRN PO SEVERE PAIN LEVEL 7-10 Last administered on 08/01/18 23:34; Admin Dose 2 MG; Start 07/28/18 at 21:00 Docusate Sodium (Colace) 100 mg BID PRN PO CONSTIPATION; Start 07/28/18 at 21:00 Gabapentin (Neurontin) 200 mg BID PO Last administered on 08/03/18at 10:32; Admin Dose 200 MG; Start 07/28/18 at 21:00 Metoprolol Tartrate (Lopressor) 25 mg BID PO Last administered on 08/02/18at 20:48; Admin Dose 25 MG; Start 07/28/18 at 21:00 Magnesium Hydroxide (Milk Of Mag) 30 ml DAILY PRN PO CONSTIPATION; Start 07/28/18 at 21:00 Acetaminophen/ Hydrocodone Bitart ([place] (10/325)) 1 tab Q4H PRN PO MODERATE PAIN LEVEL 4-6 Last administered on 08/01/18 21:02; Admin Dose 1 TAB; Start 07/28/18 at 21:00 Carisoprodol (Soma) 350 mg BID PRN PO MUSCLE SPASMS; Start 07/28/18 at 21:00 Trazodone HCl (Desyrel) 50 mg HS PRN PO INSOMNIA Last administered on 07/29/18 20:29; Admin Dose 50 MG; Start 07/28/18 at 21:00 Ondansetron HCl (Zofran Inj) 4 mg Q6H PRN IV NAUSEA AND/OR VOMITING; Start 07/28/18 at 21:00 Methylprednisolone Sodium Succinate (Solu-Medrol) 40 mg DAILY IV Last administered on 08/03/18 10:32; Admin Dose 40 MG; Start 07/29/18 at 09:00 Ascorbic Acid (Vitamin C) 500 mg TID PO Last administered on 08/03/18 12:34; Admin Dose 500 MG; Start 07/29/18 at 09:00 Lorazepam (Ativan) 0.5 mg Q6H PRN PO ANXIETY Last administered on 08/01/18 20:56; Admin Dose 0.5 MG; Start 07/29/18 at 20:30 Guaifenesin/ Dextromethorphan (Robitussin Dm Liquid Cup) 5 ml Q4H PRN PO COUGH Last administered on 08/01/18 16:32; Admin Dose 5 ML; Start 07/29/18 at 20:30 Dextrose 1,000 ml @ 50 mls/hr Q20H IV Last administered on 08/03/18 05:16; Admin Dose 50 MLS/HR; Start 07/30/18 at 08:30 Diltiazem HCl 125 ml @ 5 mls/hr TITRATE IV Last administered on 07/30/18 09:40; Admin Dose 5 MLS/HR; Start 07/30/18 at 09:00; Status Hold Dronedarone (Multaq) 400 mg BID WITH MEALS PO Last administered on 08/03/18 17:41; Admin Dose 400 MG; Start 07/30/18 at 09:30 Sildenafil Citrate (Revatio) 10 mg TID PO Last administered on 08/03/18 12:35; Admin Dose 10 MG; Start 07/31/18 at 09:00 Propofol 100 ml @ 1.986 mls/ hr Q12H IV Last administered on 08/03/18 14:35; Admin Dose 11.916 MLS/HR; Start 08/02/18 at 10:00 Albuterol (Ventolin Hfa) 4 puff Q6H RESP THERAPY INH Last administered on 08/03/18at 19:11; Admin Dose 4 PUFF; Start 08/02/18 at 14:00 Ipratropium [place] (Atrovent Hfa) 4 puff Q6H RESP THERAPY INH Last administered on 08/03/18at 19:12; Admin Dose 4 PUFF; Start 08/02/18 at 14:00 Fluconazole/ Sodium Chloride 50 ml @ 50 mls/hr Q24H IVPB Last administered on 08/03/18at 17:41; Admin Dose 50 MLS/HR; Start 08/02/18 at 17:00 Aspirin (Aspirin) 81 mg DAILY GTB Last administered on 08/03/18at 10:34; Admin Dose 81 MG; Start 08/03/18 at 10:00 Acetaminophen (Tylenol Liquid) 650 mg Q6H PRN GTB MILD PAIN (1-3) OR TEMPERATURE; Start 08/03/18 at 09:30 Docusate Sodium (Colace Liquid Cup) 100 mg BID PRN GTB CONSTIPATION,,,,; Start 08/03/18 at 09:30 Vancomycin/Sodium Chloride 250 ml @ 125 mls/hr Q24H IVPB ; Start 08/04/18 at 10:00 IV Flush (NS 10 ml) 10 ml PRN PRN IV IV PROTOCOL; Start 08/03/18 at 10:30 Assessment/Plan Hospital Course (Demo Recall) 1. Hypoxemic respiratory failure 2. Pulmonary fibrosis/severe COPD 3. Elevated BNP most likely secondary to above and significant pulmonary hypertension 4. paroxysmal atrial fibrillation; currently converted back to normal sinus rhythm 5. Encephalopathy 6. Most likely pneumonia 7. History of recent fall and hip fracture status post surgery 8. Anemia 9. Lactic acidosis 10. Hypertension 11. Pulmonary hypertension Recommendations: Off the aspirin since the patient is already on Eliquis. resume eliquis as long as no active bleeding Low-dose diuretics will be continued and adjusted as needed. Chest ultrasound did not show significant effusion Antibiotic management as per internal medicine We will continue to monitor on telemetry Correct electrolytes as needed Transfusions as needed I have stopped amiodarone given concern about her severe pulmonary disease and pulmonary fibrosis. pt was started on Multaq . Cardizem IV as well as digoxin to control the heart rate better on as-needed basis. TSH is within normal limits Given her pulmonary hypertension and was started on Revatio Thank you for his referral. We will continue to follow along with you DAYRON ROGERS MD [facility] DAYRON ROGERS MD Aug 03, 2018 19:55
[2018-08-03] MEDS: APIXABAN 5 MG TABLET PO SCH (20:26)
[2018-08-04] VITALS (50 sets, daily range): BP systolic 80–132; BP diastolic 32–81; PULSE 58–108; RESP 16–34
[2018-08-04] MEDS: DEXTROSE 5% 1,000 ML IV SCH (01:08)
[2018-08-04] MEDS: IPRATROPIUM (HFA) 12.9 GM INHALER INH SCH ×4 (01:31→19:20)
[2018-08-04] MEDS: ALBUTEROL HFA 8 GM INHALER INH SCH ×4 (01:31→19:20)
[2018-08-04] MEDS: PANTOPRAZOLE 40 MG INJ IV SCH (06:02)
[2018-08-04] MEDS: PROPOFOL 100 ML IV SCH ×3 (07:12→21:23)
--- NOTE | 2018-08-04 08:01 | PN ---
DATE: 08/04/2018 SUBJECTIVE: The patient is critically ill on full ventilatory support. No other acute events noted. The patient is tolerating tube feeding well. OBJECTIVE: VITAL SIGNS: Blood pressure is 109/34, respirations 26, pulse 94, temperature 98.3. HEENT: Head is normocephalic. NECK: Supple. HEART: Tachycardic. LUNGS: Show diminished breath sounds at the base. ABDOMEN: Soft, nontender to palpation without rebound or guarding. EXTREMITIES: No clubbing, cyanosis. No edema. DERMATOLOGIC: No rashes. MUSCULOSKELETAL: No joint effusion. NEUROLOGIC: No change in exam. MEDICATIONS: Reviewed. LABORATORY DATA: Shows sodium 142, BUN 39, creatinine 1.0. White count 11.6, hemoglobin 9.0, platel et count is pending. MICROBIOLOGY: Reviewed. IMAGING STUDIES: Reviewed. ASSESSMENT AND PLAN: 1. Nonoliguric acute kidney injury with unknown baseline creatinine. Etiology of acute kidney injur y is secondary to hemodynamics. Renal function has been improving. Continue current treatment plan, supportive care, renally dose all medicines. 2. Hypernatremia. The patient's sodium levels are improved. We will discontinue D5 water. Start f ree water flushes 200 mL q.6h. 3. Anemia. Continue to monitor hemoglobin and hematocrit levels. 4. Mineral bone disorder. Monitor calcium and phosphorus levels. 5. Ventilator-dependent respiratory failure. Vent settings and ABG was reviewed. Continue to monit or. 6. Metabolic alkalemia, improved. Continue to monitor. 7. Encephalopathy, etiology is toxic metabolic. 8. Atrial fibrillation. Continue medical management. 9. Sepsis secondary to gram-positive bacteremia, pneumonia. Continue antibiotic therapy. 10. History of peripheral vascular disease. 11. Status post hip fracture. Please note I spent over 30 minutes of critical care time with this patient. Dictated By: GENEVIEVE MENJIVAR DO NR/NTS Conf#: [id number] DID#: [id number] CC: GENEVIEVE EMNJIVAR DO; ABDIAS STAPLES MD;*EndCC*
--- NOTE | 2018-08-04 08:16 | CONS ---
Assessment/Plan Assessment/Plan Assessment/Plan (Daily) Ventilator setting; AC of 18, tidal volume 400, PEEP of 5, 35% FiO2. Patient is currently on propofol 40 mics per kilogram per minute. ABG from today is pending. Chest x-ray also is pending. Assessment recommendations; 1. Patient admitted with severe bilateral community-acquired pneumonia with A RDS with significant clinical and radiological improvement. 2. History of prior tracheostomy decannulation. 3. Prior history of renal failure, patient did require hemodialysis in the past. Maintaining normal renal function now. 4. Paroxysmal atrial fibrillation, patient currently in sinus rhythm. Maintained on chronic anticoagulation. 5. History of pancreatic mass, status post workup since 2004 without any evidence of malignancy. 6. Colace negative staph aureus bacteremia with the most recent cultures been negative. 7. History of neuropathy and depression. 8. History of systemic and pulmonary hypertension. 9. History of depression. 10. History of COPD. Add fentanyl drip for better pain control and sedation. Obtain ABG. Chest x- ray is pending from today. Continue other supportive measures. If the patient continues to improve, she will be given a sedation vacation in 24 hours in order to assess for possible weaning from ventilator. 35 minutes of critical care time was spent evaluating patient. Consultation Date/Type/Reason Admit Date/Time Jul 28, 2018 at 18:16 Initial Consult Date 07/28/18 Type of Consult Pulmonary Requesting Provider: ABDIAS STAPLES MD Date/Time of Note DATE: 08/04/18 TIME: 08:13 24 HR Interval Summary Free Text/Dictation Patient's condition is critical but stable. Patient has remained hemod ynamically stable. General exam; elderly female, orally intubated, agitated. Exam/Review of Systems Exam Vitals Vital Signs Date Temp Pulse Resp B/P (MAP) Pulse Ox O2 O2 Flow FiO2 Time Delivery Rate 08/04/18 94 26 109/34 96 Mechanical 06:00 (59) Ventilator 08/04/18 35 05:01 08/04/18 98.3 04:00 07/31/18 15.0 09:52 Intake and Output 08/03/18 08/03/18 08/04/18 1515:00 23:00 07:00 IntakeIntake Total 1019.398 ml 866.916 ml 723.96 ml OutputOutput Total 975 ml 825 ml 700 ml BalanceBalance 44.398 ml 41.916 ml 23.96 ml Exam HEENT exam; supple neck, no JVD. No lymphadenopathy. Midline trachea. No thyromegaly. Orally intubated. There is a well-healed tracheostomy scar. No neck masses. Patient is edentulous. Chest exam; diminished but clear breath sounds. S1-S2 audible, no murmurs. Regular rhythm. Abdomen exam; soft, nondistended. No organomegaly. Bowel sounds audible. Extremity exam; no peripheral edema clubbing. [employer] exam; patient is sedated and agitated. Results Result Diagram: 08/04/18 0430 08/04/18 0430 Results 24hrs Laboratory Tests Test 08/04/18 04:30 08/04/18 07:00 White Blood Count 11.6 H Red Blood Count 2.81 L Hemoglobin 9.0 L Hematocrit 28.5 L Mean Corpuscular Volume 101.4 H Mean Corpuscular Hemoglobin 32.0 Mean Corpuscular Hemoglobin Concent 31.6 L Red Cell Distribution Width 19.2 H Platelet Count Pending Mean Platelet Volume 11.7 H Immature Granulocytes % 0.500 H Neutrophils % 83.2 H Lymphocytes % 10.5 L Monocytes % 5.0 Eosinophils % 0.7 Basophils % 0.1 Nucleated Red Blood Cells % 0.0 Immature Granulocytes # 0.060 H Neutrophils # 9.7 H Lymphocytes # 1.2 Monocytes # 0.6 Eosinophils # 0.1 Basophils # 0.0 Nucleated Red Blood Cells # 0.0 Sodium Level 142 Potassium Level 3.7 Chloride Level 106 Carbon Dioxide Level 27 Anion Gap 9 Blood Urea Nitrogen 39 H Creatinine 1.00 Est Glomerular Filtrat Rate mL/min Glucose Level 122 Calcium Level 9.0 Phosphorus Level 2.6 Magnesium Level 2.4 Total Bilirubin 0.2 Direct Bilirubin 0.00 Indirect Bilirubin 0.2 Aspartate Amino Transf (AST/SGOT) 116 H Alanine Aminotransferase (ALT/SGPT) 104 H Alkaline Phosphatase 113 Total Protein 4.9 L Albumin 2.6 L Globulin 2.30 Albumin/Globulin Ratio 1.13 Blood Gas Specimen Source Blood arterial Arterial Blood Date Drawn 08/03/2018 7:04:00 AM Arterial Blood pH (Temp corrected) 7.472 H Arterial Blood pCO2 (Temp correct) 39.6 Arterial Blood pO2 (Temp corrected) 99.3 H Arterial Blood HCO3 28.3 H Arterial Blood Base Excess 4.4 H Arterial Blood Oxygen Saturation 97.1 Vick Test ACCEPTAB Arterial Blood Gas Puncture Site Right Radial Arterial Blood Carboxyhemoglobin 0.2 Arterial Blood Methemoglobin 0.1 Blood Gas A-a O2 Differential 284.9 H Oxyhemoglobin Percent 96.8 Blood Gas Temperature 37.0 Blood Gas Respiration Rate 18.0 Blood Gas Actual Respiration Rate 22 Blood Gas Modality VENT - AC FiO2 60.0 Blood Gas Tidal Volume 450.0 Blood Gas Low PEEP Setting 5.0 Blood Gas Notified Whom TM Blood Gas Notified Time 08/03/2018 7:21:00 AM Medications Medication Current Medications Vancomycin HCl (Vanco Iv Per Pharmacy) VANCOMYCIN PER PHARMACY PER PROTOCOL XX ; Start 07/28/18 at 17:30 Cefepime HCl 50 ml @ 100 mls/hr Q12 IVPB Last administered on 08/03/18 20:25; Admin Dose 100 MLS/HR; Start 07/28/18 at 21:00 Albuterol/ Ipratropium (Duoneb) 3 ml Q6H RESP THERAPY HHN Last administered on 08/02/18 01:07; Admin Dose 3 ML; Start 07/28/18 at 20:00; Status Hold Pantoprazole (Protonix Iv) 40 mg DAILY@06 IV Last administered on 08/04/18 06:02; Admin Dose 40 MG; Start 07/29/18 at 06:00 Apixaban (Eliquis) 5 mg BID PO Last administered on 08/03/18 20:26; Admin Dose 5 MG; Start 07/28/18 at 21:00 Calcium/Vitamin D (Oyster Shell/ Vit-D (500/200)) 1 tab BID PO Last administered on 08/03/18 20:27; Admin Dose 1 TAB; Start 07/28/18 at 21:00 Clonazepam (Klonopin) 0.5 mg BID PRN PO ANXIETY Last administered on 08/01/18 23:34; Admin Dose 0.5 MG; Start 07/28/18 at 21:00 Clonidine (Catapres) 0.1 mg TID PRN PO ELEVATED BLOOD PRESSURE Last administered on 07/29/18 16:54; Admin Dose 0.1 MG; Start 07/28/18 at 21:00 Hydromorphone HCl (Dilaudid) 2 mg Q4H PRN PO SEVERE PAIN LEVEL 7-10 Last administered on 08/01/18 23:34; Admin Dose 2 MG; Start 07/28/18 at 21:00 Docusate Sodium (Colace) 100 mg BID PRN PO CONSTIPATION; Start 07/28/18 at 21:00 Gabapentin (Neurontin) 200 mg BID PO Last administered on 08/03/18 20:27; Admin Dose 200 MG; Start 07/28/18 at 21:00 Metoprolol Tartrate (Lopressor) 25 mg BID PO Last administered on 08/03/18 21:51; Admin Dose 25 MG; Start 07/28/18 at 21:00 Magnesium Hydroxide (Milk Of Mag) 30 ml DAILY PRN PO CONSTIPATION; Start 07/28/18 at 21:00 Acetaminophen/ Hydrocodone Bitart ([place] (10)) 1 tab Q4H PRN PO MODERATE PAIN LEVEL 4-6 Last administered on 08/01/18 21:02; Admin Dose 1 TAB; Start 07/28/18 at 21:00 Carisoprodol (Soma) 350 mg BID PRN PO MUSCLE SPASMS; Start 07/28/18 at 21:00 Trazodone HCl (Desyrel) 50 mg HS PRN PO INSOMNIA Last administered on 07/29/18 20:29; Admin Dose 50 MG; Start 07/28/18 at 21:00 Ondansetron HCl (Zofran Inj) 4 mg Q6H PRN IV NAUSEA AND/OR VOMITING; Start 07/28/18 at 21:00 Methylprednisolone Sodium Succinate (Solu-Medrol) 40 mg DAILY IV Last administered on 08/03/18 10:32; Admin Dose 40 MG; Start 07/29/18 at 09:00 Ascorbic Acid (Vitamin C) 500 mg TID PO Last administered on 08/03/18 20:27; Admin Dose 500 MG; Start 07/29/18 at 09:00 Lorazepam (Ativan) 0.5 mg Q6H PRN PO ANXIETY Last administered on 08/01/18 20:56; Admin Dose 0.5 MG; Start 07/29/18 at 20:30 Guaifenesin/ Dextromethorphan (Robitussin Dm Liquid Cup) 5 ml Q4H PRN PO COUGH Last administered on 08/01/18 16:32; Admin Dose 5 ML; Start 07/29/18 at 20:30 Diltiazem HCl 125 ml @ 5 mls/hr TITRATE IV Last administered on 07/30/18 09:40; Admin Dose 5 MLS/HR; Start 07/30/18 at 09:00; Status Hold Dronedarone (Multaq) 400 mg BID WITH MEALS PO Last administered on 08/03/18 17:41; Admin Dose 400 MG; Start 07/30/18 at 09:30 Sildenafil Citrate (Revatio) 10 mg TID PO Last administered on 08/03/18 20:27; Admin Dose 10 MG; Start 07/31/18 at 09:00 Propofol 100 ml @ 1.986 mls/ hr Q12H IV Last administered on 08/04/18 07:12; Admin Dose 12.71 MLS/HR; Start 08/02/18 at 10:00 Albuterol (Ventolin Hfa) 4 puff Q6H RESP THERAPY INH Last administered on 08/04/18 01:31; Admin Dose 4 PUFF; Start 08/02/18 at 14:00 Ipratropium [place] (Atrovent Hfa) 4 puff Q6H RESP THERAPY INH Last administered on 08/04/18 01:31; Admin Dose 4 PUFF; Start 08/02/18 at 14:00 Fluconazole/ Sodium Chloride 50 ml @ 50 mls/hr Q24H IVPB Last administered on 08/03/18 17:41; Admin Dose 50 MLS/HR; Start 08/02/18 at 17:00 Acetaminophen (Tylenol Liquid) 650 mg Q6H PRN GTB MILD PAIN (1-3) OR TEMPERATURE; Start 08/03/18 at 09:30 Docusate Sodium (Colace Liquid Cup) 100 mg BID PRN GTB CONSTIPATION,,,,; Start 08/03/18 at 09:30 Vancomycin/Sodium Chloride 250 ml @ 125 mls/hr Q24H IVPB ; Start 08/04/18 at 10:00 IV Flush (NS 10 ml) 10 ml PRN PRN IV IV PROTOCOL; Start 08/03/18 at 10:30 DEJUAN OSULLIVAN Aug 04, 2018 08:16
[2018-08-04] MEDS ORDERED: ASPIRIN 81 MG TAB GTB SCH (09:00)
[2018-08-04] MEDS: FENTAnyl (DRIP) 1000 mcg/100mL 100 ML IV SCH (09:50)
[2018-08-04] MEDS: CEFEPIME 1GM/50 ML (PMX) 50 ML IVPB SCH ×2 (10:01→21:32)
[2018-08-04] MEDS: METHYLPREDNISOLONE 40 MG INJ IV SCH (10:01)
[2018-08-04] MEDS: GABAPENTIN 100 MG CAP PO SCH ×2 (10:03→21:34)
[2018-08-04] MEDS: APIXABAN 5 MG TABLET PO SCH ×2 (10:04→21:32)
[2018-08-04] MEDS: SILDENAFIL 20 MG TAB PO SCH ×3 (10:04→21:34)
[2018-08-04] MEDS: CALCIUM/VITAMIN D (500/200) TAB PO SCH ×2 (10:04→21:32)
[2018-08-04] MEDS: ASCORBIC ACID 500 MG TAB PO SCH ×3 (10:05→21:33)
[2018-08-04] MEDS: DRONEDARONE HYDROCHLORIDE 400 MG TAB PO SCH ×2 (10:05→17:30)
[2018-08-04] MEDS: METOPROLOL 25 MG TAB PO SCH ×2 (10:05→21:00)
[2018-08-04] MEDS: VANCOMYCIN 750 MG (PMX) 250 ML IVPB SCH (11:02)
--- NOTE | 2018-08-04 16:36 | CONS ---
Assessment/Plan Assessment/Plan Hospital Course (Demo Recall) No acute changes patient remains intubated sedated in no distress had been afebrile. WBC today 11.6 neutrophils 83.2 BUN 39 creatinine 1 Chest x-ray this morning revealed bilateral predominantly interstitial infiltrates mildly improved. Scattered alveolar infiltrates in the right lung base unchanged. Minimal bilateral pleural effusions unchanged Microbiology: Sputum culture growing Ivania albicans, blood culture on admission grew coag negative staph species Involving: Endotracheal tube and NG tube Landis catheter PICC line Antimicrobials: Cefepime, vancomycin, fluconazole Allergies: Penicillin, tetracycline Physical examination: This is a fragile chronically ill-appearing wasted elderly woman who is in no distress. Head atraumatic normocephalic sclera nonicteric. Neck is supple. Chest rise symmetrical breath sounds diminished bases. Heart: S1-S2. Abdomen soft bowel sounds present extremities without cyanosis. Assessment: 1. Severe sepsis, present on admission 2. Acute on chronic respiratory failure, status post intubation 08/02/18 3. Healthcare associated pneumonia/ARDS 4. Coag negative staph bacteremia, possibly contaminant 5. Peripheral arterial disease status post stent 6. Pancreatic head mass, patient is following with a specialist yearly 7. Recent right hip fracture status post surgical intervention Plan: Patient remains stable, continue antibiotics, vent support per pulmonary rec-s Consultation Date/Type/Reason Admit Date/Time Jul 28, 2018 at 18:16 Initial Consult Date 07/28/18 Type of Consult id Requesting Provider: ABDIAS STAPLES MD Date/Time of Note DATE: 08/04/18 TIME: 16:35 Exam/Review of Systems Exam Vitals Vital Signs Date Temp Pulse Resp B/P (MAP) Pulse Ox O2 O2 Flow FiO2 Time Delivery Rate 08/04/18 66 16:00 08/04/18 17 102/37 100 Mechanical 15:30 (58) Ventilator 08/04/18 98.3 12:00 08/04/18 40 12:00 07/31/18 15.0 09:52 Intake and Output 08/03/18 08/03/18 08/04/18 1515:00 23:00 07:00 IntakeIntake Total 1019.398 ml 866.916 ml 766.67 ml OutputOutput Total 975 ml 825 ml 900 ml BalanceBalance 44.398 ml 41.916 ml -133.33 ml Results Result Diagram: 08/04/18 0840 08/04/18 0430 Results 24hrs Laboratory Tests Test 08/04/18 04:30 08/04/18 07:00 08/04/18 08:40 Sodium Level 142 Potassium Level 3.7 Chloride Level 106 Carbon Dioxide Level 27 Anion Gap 9 Blood Urea Nitrogen 39 H Creatinine 1.00 Est Glomerular Filtrat Rate mL/min Glucose Level 122 Calcium Level 9.0 Phosphorus Level 2.6 Magnesium Level 2.4 Total Bilirubin 0.2 Direct Bilirubin 0.00 Indirect Bilirubin 0.2 Aspartate Amino 116 H Transf (AST/SGOT) Alanine 104 H Aminotransferase (ALT/SGPT) Alkaline Phosphatase 113 Total Protein 4.9 L Albumin 2.6 L Globulin 2.30 Albumin/Globulin Ratio 1.13 Blood Gas Specimen Source Blood arterial Arterial Blood Date Drawn 08/03/2018 7:04:00 AM Arterial Blood pH 7.472 H (Temp corrected) Arterial Blood pCO2 39.6 (Temp correct) Arterial Blood pO2 99.3 H (Temp corrected) Arterial Blood HCO3 28.3 H Arterial Blood Base Excess 4.4 H Arterial Blood 97.1 Oxygen Saturation Vick Test ACCEPTAB Arterial Blood Gas Right Radial Puncture Site Arterial 0.2 Blood Carboxyhemoglobin Arterial Blood Methemoglobin 0.1 Blood Gas A-a O2 284.9 H Differential Oxyhemoglobin Percent 96.8 Blood Gas Temperature 37.0 Blood Gas Respiration Rate 18.0 Blood Gas Actual 22 Respiration Rate Blood Gas Modality VENT - AC FiO2 60.0 Blood Gas Tidal Volume 450.0 Blood Gas Low PEEP Setting 5.0 Blood Gas Notified Whom TM Blood Gas Notified Time 08/03/2018 7:21:00 AM White Blood Count 11.6 H Red Blood Count 2.81 L Hemoglobin 9.0 L Hematocrit 28.5 L Mean Corpuscular Volume 101.4 H Mean Corpuscular Hemoglobin 32.0 Mean Corpuscular 31.6 L Hemoglobin Concent Red Cell Distribution Width 19.2 H Platelet Count 94 #L Mean Platelet Volume 11.7 H Immature Granulocytes % 0.500 H Neutrophils % 83.2 H Lymphocytes % 10.5 L Monocytes % 5.0 Eosinophils % 0.7 Basophils % 0.1 Nucleated Red Blood Cells % 0.0 Immature Granulocytes # 0.060 H Neutrophils # 9.7 H Lymphocytes # 1.2 Monocytes # 0.6 Eosinophils # 0.1 Basophils # 0.0 Nucleated Red Blood Cells # 0.0 Medications Medication Current Medications Vancomycin HCl (Vanco Iv Per Pharmacy) VANCOMYCIN PER PHARMACY PER PROTOCOL XX ; Start 07/28/18 at 17:30 Cefepime HCl 50 ml @ 100 mls/hr Q12 IVPB Last administered on 08/04/18 10:01; Admin Dose 100 MLS/HR; Start 07/28/18 at 21:00 Albuterol/ Ipratropium (Duoneb) 3 ml Q6H RESP THERAPY HHN Last administered on 08/02/18 01:07; Admin Dose 3 ML; Start 07/28/18 at 20:00; Status Hold Apixaban (Eliquis) 5 mg BID PO Last administered on 08/04/18 10:04; Admin Dose 5 MG; Start 07/28/18 at 21:00 Calcium/Vitamin D (Oyster Shell/ Vit-D (500/200)) 1 tab BID PO Last administ ered on 08/04/18 10:04; Admin Dose 1 TAB; Start 07/28/18 at 21:00 Clonazepam (Klonopin) 0.5 mg BID PRN PO ANXIETY Last administered on 08/01/18 23:34; Admin Dose 0.5 MG; Start 07/28/18 at 21:00 Clonidine (Catapres) 0.1 mg TID PRN PO ELEVATED BLOOD PRESSURE Last administered on 07/29/18at 16:54; Admin Dose 0.1 MG; Start 07/28/18 at 21:00 Hydromorphone HCl (Dilaudid) 2 mg Q4H PRN PO SEVERE PAIN LEVEL 7-10 Last administered on 08/01/18 23:34; Admin Dose 2 MG; Start 07/28/18 at 21:00 Docusate Sodium (Colace) 100 mg BID PRN PO CONSTIPATION; Start 07/28/18 at 21:00 Gabapentin (Neurontin) 200 mg BID PO Last administered on 08/04/18 10:03; Admin Dose 200 MG; Start 07/28/18 at 21:00 Metoprolol Tartrate (Lopressor) 25 mg BID PO Last administered on 08/04/18 10:05; Admin Dose 25 MG; Start 07/28/18 at 21:00 Magnesium Hydroxide (Milk Of Mag) 30 ml DAILY PRN PO CONSTIPATION; Start 07/28/18 at 21:00 Acetaminophen/ Hydrocodone Bitart ([place] (10)) 1 tab Q4H PRN PO MODERATE PAIN LEVEL 4-6 Last administered on 08/01/18 21:02; Admin Dose 1 TAB; Start 07/28/18 at 21:00 Carisoprodol (Soma) 350 mg BID PRN PO MUSCLE SPASMS; Start 07/28/18 at 21:00 Trazodone HCl (Desyrel) 50 mg HS PRN PO INSOMNIA Last administered on 07/29/18 20:29; Admin Dose 50 MG; Start 07/28/18 at 21:00 Ondansetron HCl (Zofran Inj) 4 mg Q6H PRN IV NAUSEA AND/OR VOMITING; Start 07/28/18 at 21:00 Methylprednisolone Sodium Succinate (Solu-Medrol) 40 mg DAILY IV Last administered on 08/04/18 10:01; Admin Dose 40 MG; Start 07/29/18 at 09:00 Ascorbic Acid (Vitamin C) 500 mg TID PO Last administered on 08/04/18 12:38; Admin Dose 500 MG; Start 07/29/18 at 09:00 Lorazepam (Ativan) 0.5 mg Q6H PRN PO ANXIETY Last administered on 08/01/18 20:56; Admin Dose 0.5 MG; Start 07/29/18 at 20:30 Guaifenesin/ Dextromethorphan (Robitussin Dm Liquid Cup) 5 ml Q4H PRN PO COUGH Last administered on 08/01/18 16:32; Admin Dose 5 ML; Start 07/29/18 at 20:30 Diltiazem HCl 125 ml @ 5 mls/hr TITRATE IV Last administered on 07/30/18 09:40; Admin Dose 5 MLS/HR; Start 07/30/18 at 09:00; Status Hold Dronedarone (Multaq) 400 mg BID WITH MEALS PO Last administered on 08/04/18 10:05; Admin Dose 400 MG; Start 07/30/18 at 09:30 Sildenafil Citrate (Revatio) 10 mg TID PO Last administered on 08/04/18 12:38; Admin Dose 10 MG; Start 07/31/18 at 09:00 Propofol 100 ml @ 1.986 mls/ hr Q12H IV Last administered on 08/04/18 13:34; Admin Dose 15.888 MLS/HR; Start 08/02/18 at 10:00 Albuterol (Ventolin Hfa) 4 puff Q6H RESP THERAPY INH Last administered on 08/04/18 13:20; Admin Dose 4 PUFF; Start 08/02/18 at 14:00 Ipratropium [place] (Atrovent Hfa) 4 puff Q6H RESP THERAPY INH Last administered on 08/04/18at 13:20; Admin Dose 4 PUFF; Start 08/02/18 at 14:00 Fluconazole/ Sodium Chloride 50 ml @ 50 mls/hr Q24H IVPB Last administered on 08/03/18at 17:41; Admin Dose 50 MLS/HR; Start 08/02/18 at 17:00 Acetaminophen (Tylenol Liquid) 650 mg Q6H PRN GTB MILD PAIN (1-3) OR TEMPERATURE; Start 08/03/18 at 09:30 Docusate Sodium (Colace Liquid Cup) 100 mg BID PRN GTB CONSTIPATION,,,,; Start 08/03/18 at 09:30 Vancomycin/Sodium Chloride 250 ml @ 125 mls/hr Q24H IVPB Last administered on 08/04/18at 11:02; Admin Dose 125 MLS/HR; Start 08/04/18 at 10:00 IV Flush (NS 10 ml) 10 ml PRN PRN IV IV PROTOCOL; Start 08/03/18 at 10:30 Fentanyl 100 ml @ 2.5 mls/hr TITRATE IV Last administered on 08/04/18at 09:50; Admin Dose 2.5 MLS/HR; Start 08/04/18 at 09:00 Lansoprazole (Prevacid) 30 mg DAILY@06 GTB ; Start 08/05/18 at 06:00 ANDREW SMITH NP Aug 04, 2018 16:36
[2018-08-04] MEDS: FLUCONAZOLE 100 MG/50 ML (PMX) 50 ML IVPB SCH (17:30)
--- NOTE | 2018-08-04 17:30 | PN ---
Date/Time of Note Date/Time of Note DATE: 08/04/18 TIME: 17:28 Assessment/Plan VTE Prophylaxis Risk score (from Ns)>0 risk: 15 SCD applied (from Ns): Yes Pharmacological prophylaxis: apixaban Lines/Catheters IV Catheter Type (from Nrsg): PICC Line Central line still needed: Yes Urinary Cath still in place: Yes Reason Cath still needed: urinary retention Assessment/Plan Hospital Course Patient continues on ventilatory support, and is on propofol drip and fentanyl for pain. Patient tolerates G-tube feeding. Assessment/Plan - Anemia of acute blood loss secondary to nosebleed, resolved. status post blood transfusion, continue to monitor hemoglobin and hematocrit. - Acute hypoxemic respiratory failure due to healthcare-acquired pneumonia/ ARDS. Continue ventilatory support. from pulmonary standpoint. - Sepsis with gram-positive bacteremia. Continue antibiotics per ID. Dr. Brown is following in infection disease consultation. - Bilateral pulmonary fibrosis. Continue supplemental oxygen and symptomatic treatment with steroids. - Chronic obstructive pulmonary disease. Continue DuoNeb and steroids. - Nonobstructive coronary artery disease as per cardiac catheterization in 2012. Dr. Frost is following from cardiac standpoint. - Paroxysmal atrial fibrillation. Patient had an episode of atrial fibrillation with rapid ventricular response and was on Cardizem drip, currently in sinus rh ythm. - Hypertension. Continue metoprolol and Lasix. p.r.n. clonidine. - Peripheral artery disease, status post stent. - Dyslipidemia. Continue Lipitor. - MARQUES, Dr. Salazar from nephrology standpoint. - Recent right hip fracture, status post surgery. - Pancreatic head mass. As per patient, she has been going to a specialist every year for followup. - Anxiety and depression, continue Klonopin and Prozac. Further recommendations based on clinical course. Plan of care discussed with Dr. Pack. Result Diagram: 08/04/18 0840 08/04/18 0430 Results 24hrs Laboratory Tests Test 08/04/18 04:30 08/04/18 07:00 08/04/18 08:40 Sodium Level 142 Potassium Level 3.7 Chloride Level 106 Carbon Dioxide Level 27 Anion Gap 9 Blood Urea Nitrogen 39 H Creatinine 1.00 Est Glomerular Filtrat Rate mL/min Glucose Level 122 Calcium Level 9.0 Phosphorus Level 2.6 Magnesium Level 2.4 Total Bilirubin 0.2 Direct Bilirubin 0.00 Indirect Bilirubin 0.2 Aspartate Amino 116 H Transf (AST/SGOT) Alanine 104 H Aminotransferase (ALT/SGPT) Alkaline Phosphatase 113 Total Protein 4.9 L Albumin 2.6 L Globulin 2.30 Albumin/Globulin Ratio 1.13 Blood Gas Specimen Source Blood arterial Arterial Blood Date Drawn 08/03/2018 7:04:00 AM Arterial Blood pH 7.472 H (Temp corrected) Arterial Blood pCO2 39.6 (Temp correct) Arterial Blood pO2 99.3 H (Temp corrected) Arterial Blood HCO3 28.3 H Arterial Blood Base Excess 4.4 H Arterial Blood 97.1 Oxygen Saturation Vick Test ACCEPTAB Arterial Blood Gas Right Radial Puncture Site Arterial 0.2 Blood Carboxyhemoglobin Arterial Blood Methemoglobin 0.1 Blood Gas A-a O2 284.9 H Differential Oxyhemoglobin Percent 96.8 Blood Gas Temperature 37.0 Blood Gas Respiration Rate 18.0 Blood Gas Actual 22 Respiration Rate Blood Gas Modality VENT - AC FiO2 60.0 Blood Gas Tidal Volume 450.0 Blood Gas Low PEEP Setting 5.0 Blood Gas Notified Whom TM Blood Gas Notified Time 08/03/2018 7:21:00 AM White Blood Count 11.6 H Red Blood Count 2.81 L Hemoglobin 9.0 L Hematocrit 28.5 L Mean Corpuscular Volume 101.4 H Mean Corpuscular Hemoglobin 32.0 Mean Corpuscular 31.6 L Hemoglobin Concent Red Cell Distribution Width 19.2 H Platelet Count 94 #L Mean Platelet Volume 11.7 H Immature Granulocytes % 0.500 H Neutrophils % 83.2 H Lymphocytes % 10.5 L Monocytes % 5.0 Eosinophils % 0.7 Basophils % 0.1 Nucleated Red Blood Cells % 0.0 Immature Granulocytes # 0.060 H Neutrophils # 9.7 H Lymphocytes # 1.2 Monocytes # 0.6 Eosinophils # 0.1 Basophils # 0.0 Nucleated Red Blood Cells # 0.0 Exam/Review of Systems Exam Vitals Vital Signs Date Temp Pulse Resp B/P (MAP) Pulse Ox O2 O2 Flow FiO2 Time Delivery Rate 08/04/18 64 18 98 40 17:00 08/04/18 100/38 Mechanical 16:30 (58) Ventilator 08/04/18 97.8 16:00 07/31/18 15.0 09:52 Intake and Output 08/03/18 08/03/18 08/04/18 1515:00 23:00 07:00 IntakeIntake Total 1019.398 ml 866.916 ml 766.67 ml OutputOutput Total 975 ml 825 ml 900 ml BalanceBalance 44.398 ml 41.916 ml -133.33 ml Exam Constitutional: frail, other (Orally intubated) ENMT: other (OGT) Neck: supple Respiratory: diminished breath sounds Gastrointestinal: soft, non-tender Extremities: normal pulses Neurological: other (Sedated) Results Results 24hrs Laboratory Tests Test 08/04/18 04:30 08/04/18 07:00 08/04/18 08:40 Sodium Level 142 Potassium Level 3.7 Chloride Level 106 Carbon Dioxide Level 27 Anion Gap 9 Blood Urea Nitrogen 39 H Creatinine 1.00 Est Glomerular Filtrat Rate mL/min Glucose Level 122 Calcium Level 9.0 Phosphorus Level 2.6 Magnesium Level 2.4 Total Bilirubin 0.2 Direct Bilirubin 0.00 Indirect Bilirubin 0.2 Aspartate Amino 116 H Transf (AST/SGOT) Alanine 104 H Aminotransferase (ALT/SGPT) Alkaline Phosphatase 113 Total Protein 4.9 L Albumin 2.6 L Globulin 2.30 Albumin/Globulin Ratio 1.13 Blood Gas Specimen Source Blood arterial Arterial Blood Date Drawn 08/03/2018 7:04:00 AM Arterial Blood pH 7.472 H (Temp corrected) Arterial Blood pCO2 39.6 (Temp correct) Arterial Blood pO2 99.3 H (Temp corrected) Arterial Blood HCO3 28.3 H Arterial Blood Base Excess 4.4 H Arterial Blood 97.1 Oxygen Saturation Vick Test ACCEPTAB Arterial Blood Gas Right Radial Puncture Site Arterial 0.2 Blood Carboxyhemoglobin Arterial Blood Methemoglobin 0.1 Blood Gas A-a O2 284.9 H Differential Oxyhemoglobin Percent 96.8 Blood Gas Temperature 37.0 Blood Gas Respiration Rate 18.0 Blood Gas Actual 22 Respiration Rate Blood Gas Modality VENT - AC FiO2 60.0 Blood Gas Tidal Volume 450.0 Blood Gas Low PEEP Setting 5.0 Blood Gas Notified Whom TM Blood Gas Notified Time 08/03/2018 7:21:00 AM White Blood Count 11.6 H Red Blood Count 2.81 L Hemoglobin 9.0 L Hematocrit 28.5 L Mean Corpuscular Volume 101.4 H Mean Corpuscular Hemoglobin 32.0 Mean Corpuscular 31.6 L Hemoglobin Concent Red Cell Distribution Width 19.2 H Platelet Count 94 #L Mean Platelet Volume 11.7 H Immature Granulocytes % 0.500 H Neutrophils % 83.2 H Lymphocytes % 10.5 L Monocytes % 5.0 Eosinophils % 0.7 Basophils % 0.1 Nucleated Red Blood Cells % 0.0 Immature Granulocytes # 0.060 H Neutrophils # 9.7 H Lymphocytes # 1.2 Monocytes # 0.6 Eosinophils # 0.1 Basophils # 0.0 Nucleated Red Blood Cells # 0.0 Medications Medication Current Medications Vancomycin HCl (Vanco Iv Per Pharmacy) VANCOMYCIN PER PHARMACY PER PROTOCOL XX ; Start 07/28/18 at 17:30 Cefepime HCl 50 ml @ 100 mls/hr Q12 IVPB Last administered on 08/04/18 10:01; Admin Dose 100 MLS/HR; Start 07/28/18 at 21:00 Albuterol/ Ipratropium (Duoneb) 3 ml Q6H RESP THERAPY HHN Last administered on 08/02/18 01:07; Admin Dose 3 ML; Start 07/28/18 at 20:00; Status Hold Apixaban (Eliquis) 5 mg BID PO Last administered on 08/04/18 10:04; Admin Dose 5 MG; Start 07/28/18 at 21:00 Calcium/Vitamin D (Oyster [place]/ Vit-D (500/200)) 1 tab BID PO Last administere d on 08/04/18 10:04; Admin Dose 1 TAB; Start 07/28/18 at 21:00 Clonazepam (Klonopin) 0.5 mg BID PRN PO ANXIETY Last administered on 08/01/18 23:34; Admin Dose 0.5 MG; Start 07/28/18 at 21:00 Clonidine (Catapres) 0.1 mg TID PRN PO ELEVATED BLOOD PRESSURE Last administered on 07/29/18 16:54; Admin Dose 0.1 MG; Start 07/28/18 at 21:00 Hydromorphone HCl (Dilaudid) 2 mg Q4H PRN PO SEVERE PAIN LEVEL 7-10 Last administered on 08/01/18 23:34; Admin Dose 2 MG; Start 07/28/18 at 21:00 Docusate Sodium (Colace) 100 mg BID PRN PO CONSTIPATION; Start 07/28/18 at 21:00 Gabapentin (Neurontin) 200 mg BID PO Last administered on 08/04/18 10:03; Admin Dose 200 MG; Start 07/28/18 at 21:00 Metoprolol Tartrate (Lopressor) 25 mg BID PO Last administered on 08/04/18 10:05; Admin Dose 25 MG; Start 07/28/18 at 21:00 Magnesium Hydroxide (Milk Of Mag) 30 ml DAILY PRN PO CONSTIPATION; Start 07/28/18 at 21:00 Acetaminophen/ Hydrocodone Bitart ([place] (10325)) 1 tab Q4H PRN PO MODERATE PAIN LEVEL 4-6 Last administered on 08/01/18 21:02; Admin Dose 1 TAB; Start 07/28/18 at 21:00 Carisoprodol (Soma) 350 mg BID PRN PO MUSCLE SPASMS; Start 07/28/18 at 21:00 Trazodone HCl (Desyrel) 50 mg HS PRN PO INSOMNIA Last administered on 07/29/18 20:29; Admin Dose 50 MG; Start 07/28/18 at 21:00 Ondansetron HCl (Zofran Inj) 4 mg Q6H PRN IV NAUSEA AND/OR VOMITING; Start 07/28/18 at 21:00 Methylprednisolone Sodium Succinate (Solu-Medrol) 40 mg DAILY IV Last administered on 08/04/18 10:01; Admin Dose 40 MG; Start 07/29/18 at 09:00 Ascorbic Acid (Vitamin C) 500 mg TID PO Last administered on 08/04/18 12:38; Admin Dose 500 MG; Start 07/29/18 at 09:00 Lorazepam (Ativan) 0.5 mg Q6H PRN PO ANXIETY Last administered on 08/01/18 20:56; Admin Dose 0.5 MG; Start 07/29/18 at 20:30 Guaifenesin/ Dextromethorphan (Robitussin Dm Liquid Cup) 5 ml Q4H PRN PO COUGH Last administered on 08/01/18 16:32; Admin Dose 5 ML; Start 07/29/18 at 20:30 Diltiazem HCl 125 ml @ 5 mls/hr TITRATE IV Last administered on 07/30/18 09:40; Admin Dose 5 MLS/HR; Start 07/30/18 at 09:00; Status Hold Dronedarone (Multaq) 400 mg BID WITH MEALS PO Last administered on 08/04/18at 10:05; Admin Dose 400 MG; Start 07/30/18 at 09:30 Sildenafil Citrate (Revatio) 10 mg TID PO Last administered on 08/04/18at 12:38; Admin Dose 10 MG; Start 07/31/18 at 09:00 Propofol 100 ml @ 1.986 mls/ hr Q12H IV Last administered on 08/04/18at 13:34; Admin Dose 15.888 MLS/HR; Start 08/02/18 at 10:00 Albuterol (Ventolin Hfa) 4 puff Q6H RESP THERAPY INH Last administered on 08/04/18at 13:20; Admin Dose 4 PUFF; Start 08/02/18 at 14:00 Ipratropium [place] (Atrovent Hfa) 4 puff Q6H RESP THERAPY INH Last administered on 08/04/18at 13:20; Admin Dose 4 PUFF; Start 08/02/18 at 14:00 Fluconazole/ Sodium Chloride 50 ml @ 50 mls/hr Q24H IVPB Last administered on 08/03/18at 17:41; Admin Dose 50 MLS/HR; Start 08/02/18 at 17:00 Acetaminophen (Tylenol Liquid) 650 mg Q6H PRN GTB MILD PAIN (1-3) OR TEMPERATURE; Start 08/03/18 at 09:30 Docusate Sodium (Colace Liquid Cup) 100 mg BID PRN GTB CONSTIPATION,,,,; Start 08/03/18 at 09:30 Vancomycin/Sodium Chloride 250 ml @ 125 mls/hr Q24H IVPB Last administered on 08/04/18at 11:02; Admin Dose 125 MLS/HR; Start 08/04/18 at 10:00 IV Flush (NS 10 ml) 10 ml PRN PRN IV IV PROTOCOL; Start 08/03/18 at 10:30 Fentanyl 100 ml @ 2.5 mls/hr TITRATE IV Last administered on 08/04/18at 09:50; Admin Dose 2.5 MLS/HR; Start 08/04/18 at 09:00 Lansoprazole (Prevacid) 30 mg DAILY@06 GTB ; Start 08/05/18 at 06:00 RAMÓN VILLALOBOS Aug 04, 2018 17:30
--- NOTE | 2018-08-04 17:30 | CONS ---
Consult Date/Type/Reason Admit Date/Time Jul 28, 2018 at 18:16 Initial Consult Date 07/28/18 Type of Consultation: cv Requesting Provider: ABDIAS STAPLES MD Date/Time of Note DATE: 08/04/18 TIME: 17:28 Subjective Cardiology follow-up progress note Subjective: Discussed with the staff and physicians. Telemetry was reviewed. Patient is INTUBATED on vent in ICU he remains in NSR. No episode of atrial fibrillation No bleeding is reported Objective: General: Elderly female INTUBATED on vent on 40%. HEENT: NC/AT. pupils are equal. round. NECK: + JVD. no stridor. CV regular rate and rhythm systolic murmur; no gallop or rubs. PULM: no wheezing + rhonchi. GI: SOFT, NT, ND, no rebound or guarding Extremity: No significant LE edema. no clubbing. neuro: intubated on vent Psych: calm rectal: deferred : Deferred EKG was personally within normal sinus rhythm with no evidence of ischemia CT pulmonary angiogram done in the emergency room shows: 1. Moderate pulmonary fibrosis, worse at the bilateral lung apices. Associated mediastinal adenopathy. Underlying mass not entirely excluded. Further evaluation with PET-CT may be obtained. 2. Small right multiloculated pleural effusion. Moderate left layering pleural effusion. 3. Streaky bibasilar opacities compatible with atelectasis or pneumonia. 4. Dilated pulmonary trunk and bilateral pulmonary arteries compatible with sequelae of pulmonary hypertension. 5. Left renal 4 cm hyperdense cyst or mass. Further evaluation with multiphase contrast enhanced CT or MR may be obtained. Echocardiogram was personally reviewed which shows: Normal left ventricular systolic function. Normal left ventricular cavity size. Mild concentric left ventricular hypertrophy. Ejection fraction is visually estimated at 55 %. There is mild enlargement of left atrium. Normal appearance of the mitral valve. Mild mitral valve regurgitation. Aortic sclerosis without significant stenosis. Aortic cusps appear mildly calcified. Trileaflet aortic valve. Trace aortic valve regurgitation. Normal appearance of the tricuspid valve. Estimated peak PA systolic pressure 71 mmHg. There is mild tricuspid regurgitation. Normal size and normal respiratory collapse consistent with normal right atrial pressure. Objective Vitals Vital Signs Date Temp Pulse Resp B/P (MAP) Pulse Ox O2 O2 Flow FiO2 Time Delivery Rate 08/04/18 64 18 98 40 17:00 08/04/18 100/38 Mechanical 16:30 (58) Ventilator 08/04/18 97.8 16:00 07/31/18 15.0 09:52 Intake and Output 08/03/18 08/03/18 08/04/18 1515:00 23:00 07:00 IntakeIntake Total 1019.398 ml 866.916 ml 766.67 ml OutputOutput Total 975 ml 825 ml 900 ml BalanceBalance 44.398 ml 41.916 ml -133.33 ml Results/Medications Result Diagram: 08/04/18 0840 08/04/18 0430 Results 24 hrs Laboratory Tests Test 08/04/18 04:30 08/04/18 07:00 08/04/18 08:40 Sodium Level 142 Potassium Level 3.7 Chloride Level 106 Carbon Dioxide Level 27 Anion Gap 9 Blood Urea Nitrogen 39 H Creatinine 1.00 Est Glomerular Filtrat Rate mL/min Glucose Level 122 Calcium Level 9.0 Phosphorus Level 2.6 Magnesium Level 2.4 Total Bilirubin 0.2 Direct Bilirubin 0.00 Indirect Bilirubin 0.2 Aspartate Amino 116 H Transf (AST/SGOT) Alanine 104 H Aminotransferase (ALT/SGPT) Alkaline Phosphatase 113 Total Protein 4.9 L Albumin 2.6 L Globulin 2.30 Albumin/Globulin Ratio 1.13 Blood Gas Specimen Source Blood arterial Arterial Blood Date Drawn 08/03/2018 7:04:00 AM Arterial Blood pH 7.472 H (Temp corrected) Arterial Blood pCO2 39.6 (Temp correct) Arterial Blood pO2 99.3 H (Temp corrected) Arterial Blood HCO3 28.3 H Arterial Blood Base Excess 4.4 H Arterial Blood 97.1 Oxygen Saturation Vick Test ACCEPTAB Arterial Blood Gas Right Radial Puncture Site Arterial 0.2 Blood Carboxyhemoglobin Arterial Blood Methemoglobin 0.1 Blood Gas A-a O2 284.9 H Differential Oxyhemoglobin Percent 96.8 Blood Gas Temperature 37.0 Blood Gas Respiration Rate 18.0 Blood Gas Actual 22 Respiration Rate Blood Gas Modality VENT - AC FiO2 60.0 Blood Gas Tidal Volume 450.0 Blood Gas Low PEEP Setting 5.0 Blood Gas Notified Whom TM Blood Gas Notified Time 08/03/2018 7:21:00 AM White Blood Count 11.6 H Red Blood Count 2.81 L Hemoglobin 9.0 L Hematocrit 28.5 L Mean Corpuscular Volume 101.4 H Mean Corpuscular Hemoglobin 32.0 Mean Corpuscular 31.6 L Hemoglobin Concent Red Cell Distribution Width 19.2 H Platelet Count 94 #L Mean Platelet Volume 11.7 H Immature Granulocytes % 0.500 H Neutrophils % 83.2 H Lymphocytes % 10.5 L Monocytes % 5.0 Eosinophils % 0.7 Basophils % 0.1 Nucleated Red Blood Cells % 0.0 Immature Granulocytes # 0.060 H Neutrophils # 9.7 H Lymphocytes # 1.2 Monocytes # 0.6 Eosinophils # 0.1 Basophils # 0.0 Nucleated Red Blood Cells # 0.0 Home Meds Reported Medications Ondansetron Hcl* (Zofran*) 8 Mg Tablet, 8 MG PO Q6H PRN for NAUSEA AND OR VOMITING, TAB 07/28/18 Guaifenesin (Xpect) 400 Mg Tablet, 400 MG PO Q12, TAB 07/28/18 Acetaminophen* (Acetaminophen*) 650 Mg Tablet, 650 MG PO Q6H PRN for PAIN AND OR ELEVATED TEMP, #30 TAB 07/28/18 Trazodone Hcl* (Trazodone Hcl*) 50 Mg Tablet, 50 MG PO QHS, #30 TAB 07/28/18 Carisoprodol* (Carisoprodol*) 350 Mg Tablet, 350 MG PO BID PRN for MUSCLE SPASMS, TAB 07/28/18 Montelukast Sodium* (Singulair*) 10 Mg Tablet, 10 MG PO QHS, #30 TAB 07/28/18 Sennosides* (Senna Lax*) 8.6 Mg Tablet, 2 TAB PO QHS, TAB 07/28/18 Fluoxetine Hcl* (Prozac*) 20 Mg Capsule, 20 MG PO DAILY, CAP 07/28/18 Promethazine Hcl* (Phenergan* Liq) 6.25 Mg/5 Ml Syrup, 12.5 MG PO Q6H PRN for COUGH, ML 07/28/18 Lansoprazole* (Lansoprazole*) 30 Mg Capsule.dr, 30 MG PO DAILY, CAP 07/28/18 Vit C/E/Zn/Coppr/Lutein/Zeaxan (Preservision Areds 2 Softgel) 1 Each Capsule, 2 EACH PO DAILY, CAP 07/28/18 Prednisone* (Prednisone*) 20 Mg Tab, 40 MG PO DAILY, TAB 07/28/18 Chlorhexidine Gluconate (Peridex) 473 Ml Mouthwash, 15 ML MM BID, BOTTLE 07/28/18 Wilcox-3 Acid Ethyl Esters (Lovaza) 1 Gm Capsule, 2 GM PO DAILY, CAP 07/28/18 Hydrocodone/Acetaminophen ([place] 10-325 Tablet) 1 Each Tablet, 1 EACH PO Q4 PRN for SEVERE PAIN LEVEL 7-10, TAB 07/28/18 Multivitamins* (Theragran*) 1 Tab Tab, 1 TAB PO DAILY, TAB 07/28/18 Guaifenesin (Guaifenesin) 600 Mg Tablet.sa, 600 MG PO BID, TAB 07/28/18 Magnesium Hydroxide* (Milk Of Magnesia*) 400 Mg/5 Ml Oral.susp, 30 ML PO DAILY PRN for CHEST PAIN, ML 07/28/18 Metoprolol Tartrate* (Lopressor*) 50 Mg Tab, 50 MG PO DAILY, #60 TAB HOLD FOR SBP<110 OR HR<60 07/28/18 Atorvastatin Calcium (Atorvastatin Calcium) 10 Mg Tablet, 10 MG PO QHS, #30 TAB 07/28/18 Lidocaine (Lidocaine) 5 Gm Cream..g., 5 GM TP DAILY 07/28/18 Furosemide* (Lasix*) 20 Mg Tablet, 20 MG PO DAILY, TAB 07/28/18 Lactobacillus Rhamnosus* (Culturelle*) 1 Each Cap.sprink, 1 CAP PO DAILY, CAP 07/28/18 Ipratropium-Albuterol (Ipratropium-Albuterol) 0.5-3 Mg/3 Ml Ampul.neb, 3 ML INHALATION Q4 PRN for SHORTNESS OF BREATH, #30 VIAL 07/28/18 Gabapentin* (Gabapentin*) 100 Mg Capsule, 200 MG PO BID, #180 CAP 07/28/18 Folic Acid* (Folic Acid*) 1 Mg Tablet, 1 MG PO DAILY, TAB 07/28/18 Ferrous Sulfate* (Ferrous Sulfate*) 325 Mg Tabec, 325 MG PO TID, TAB 07/28/18 Estrogens Conjugated* (Premarin*) 0.45 Mg Tablet, 0.45 MG PO DAILY, TAB 07/28/18 Bisacodyl (Dulcolax) 10 Mg Supp.rect, 10 MG RC Q48, SUPP.RECT 07/28/18 Docusate Sodium* (Colace*) 100 Mg Capsule, 100 MG PO QHS PRN for CONSTIPATION, #60 CAP 07/28/18 Hydromorphone Hcl* (Dilaudid*) 2 Mg Tablet, 2 MG PO Q6H PRN for SEVERE PAIN LEVEL 7-10, TAB 07/28/18 Cyanocobalamin* (Vitamin B12*) 500 Mcg Tab, 500 MCG PO DAILY, TAB 07/28/18 Clonidine Hcl* (Clonidine Hcl*) 0.1 Mg Tab, 0.1 MG PO Q8, TAB 07/28/18 Clonazepam* (Clonazepam*) 0.5 Mg Tablet, 0.5 MG PO BID PRN for ANXIETY, TAB 07/28/18 Calcium Carbonate/Vitamin D3 (Oysco 500+D Tablet) 1 Each Tablet, 1 EACH PO BID, TAB 07/28/18 Fluticasone/Vilanterol (Breo Ellipta 200-25 Mcg INH) 1 Each Blst.w.dev, 1 PUFF INHALATION DAILY, #1 INHALER 07/28/18 Lorazepam* (Lorazepam*) 0.5 Mg Tablet, 0.5 MG PO Q6 PRN for ANXIETY, TAB 07/28/18 Diphenhydramine Hcl* (Benadryl*) 25 Mg Cap, 25 MG PO Q8 PRN for PRN, CAP 07/28/18 Aspirin* (Aspirin* Chew) 81 Mg Tab.chew, 81 MG PO DAILY, TAB.CHEW 07/28/18 Ascorbic Acid* (Vitamin C*) 500 Mg Capsule.sa, 500 MG PO TID, CAP 07/28/18 Apixaban* (Eliquis*) 5 Mg Tablet, 5 MG PO BID, TAB 07/28/18 Hydrocortisone Acetate (Anusol-Hc) 25 Mg Supp.rect, 25 MG NV BID PRN for CONSTIPATION, SUPP.RECT 07/28/18 Amiodarone Hcl* (Amiodarone Hcl*) 200 Mg Tablet, 200 MG PO BID, #30 TAB HOLD FOR SBP<110 OR HR<60 07/28/18 Discontinued Reported Medications Potassium Chloride* (KCl*) 40 Meq/30 Ml Soln, 40 MEQ PO DAILY, MEQ 07/28/18 Insulin Human Regular (Novolin-R) 100 Unit/Ml Soln, 0 SC AC MEALS AND BEDTIME SLIDING SCALE 03/22/13 Nitroglycerin* (Nitroglycerin* SL) 0.4 Mg Tab.subl, 0.4 MG SL Q5MIN PRN 03/22/13 Morphine Sulfate* (Morphine*) 2 Mg/1 Ml Cartridge, 2 MG IV Q4 03/22/13 Ipratropium [place]* (Atrovent*) 2.5 Ml Nebu, 0.5 MG NEB Q4 03/22/13 Albuterol Sulfate* (Proventil* Neb) 3 Ml Nebu, 2.5 MG IH Q4 03/22/13 Ondansetron Hcl/Pf (Zofran 4 Mg/2 Ml Vial) 4 Mg/2 Ml Vial, 4 MG IV Q4 03/22/13 Metoprolol Tartrate* (Lopressor* Inj) 5 Mg/5 Ml Ampul, 2.5 MG IV 03/22/13 Loperamide Hcl* (Anti-Diarrhea*) 2 Mg Tablet, 2 MG PO 03/22/13 Acetaminophen* (Acetaminophen*) 325 Mg Tablet, 650 MG PO Q6 PRN 03/22/13 [Acetylcysteine ] No Conflict Check, 600 MG ODT Q12 03/22/13 Acetylcysteine (ACETYLCYSTEINE) 200 Mg/1 Ml Vial, 600 MG IV 03/22/13 Pantoprazole* (Pantoprazole*) 40 Mg Tablet.dr, 40 MG PO 03/22/13 Amiodarone Hcl* (Amiodarone Hcl*) 200 Mg Tablet, 200 MG PO Q12 03/22/13 Isosorbide Mononitrate (Isosorbide Mononitrate) 20 Mg Tablet, 60 MG PO DAILY 03/22/13 Carvedilol* (Carvedilol*) 6.25 Mg Tablet, 6.25 MG PO Q12 03/22/13 [Potassium Cl] No Conflict Check, 40 MEQ PO DAILY 03/22/13 Fluoxetine Hcl* (Fluoxetine Hcl*) 20 Mg Capsule, 2040 MG PO BID 03/22/13 Thyroid,Pork ([employer] PROFESSIONAL THYROID) 60 Mg Tablet, 120 MG PO BID 03/22/13 Digoxin (Lanoxin) 0.25 Mg/5 Ml Solution, 0.125 MG PO DAILY 03/22/13 Clopidogrel Bisulfate (Clopidogrel) 75 Mg Tablet, 75 MG PO DAILY 9/16/13 Simvastatin (Simvastatin) 20 Mg Tablet, 20 MG PO HS 03/22/13 Aspirin (Aspirin) 81 Mg Chew, 81 MG PO DAILY 03/22/13 Medications Current Medications Vancomycin HCl (Vanco Iv Per Pharmacy) VANCOMYCIN PER PHARMACY PER PROTOCOL XX ; Start 07/28/18 at 17:30 Cefepime HCl 50 ml @ 100 mls/hr Q12 IVPB Last administered on 08/04/18 10:01; Admin Dose 100 MLS/HR; Start 07/28/18 at 21:00 Albuterol/ Ipratropium (Duoneb) 3 ml Q6H RESP THERAPY HHN Last administered on 08/02/18 01:07; Admin Dose 3 ML; Start 07/28/18 at 20:00; Status Hold Apixaban (Eliquis) 5 mg BID PO Last administered on 08/04/18 10:04; Admin Dose 5 MG; Start 07/28/18 at 21:00 Calcium/Vitamin D (Oyster Shell/ Vit-D (500/200)) 1 tab BID PO Last administered on 08/04/18 10:04; Admin Dose 1 TAB; Start 07/28/18 at 21:00 Clonazepam (Klonopin) 0.5 mg BID PRN PO ANXIETY Last administered on 08/01/18 23:34; Admin Dose 0.5 MG; Start 07/28/18 at 21:00 Clonidine (Catapres) 0.1 mg TID PRN PO ELEVATED BLOOD PRESSURE Last administered on 07/29/18 16:54; Admin Dose 0.1 MG; Start 07/28/18 at 21:00 Hydromorphone HCl (Dilaudid) 2 mg Q4H PRN PO SEVERE PAIN LEVEL 7-10 Last administered on 08/01/18 23:34; Admin Dose 2 MG; Start 07/28/18 at 21:00 Docusate Sodium (Colace) 100 mg BID PRN PO CONSTIPATION; Start 07/28/18 at 21:00 Gabapentin (Neurontin) 200 mg BID PO Last administered on 08/04/18 10:03; Admin Dose 200 MG; Start 07/28/18 at 21:00 Metoprolol Tartrate (Lopressor) 25 mg BID PO Last administered on 08/04/18 10:05; Admin Dose 25 MG; Start 07/28/18 at 21:00 Magnesium Hydroxide (Milk Of Mag) 30 ml DAILY PRN PO CONSTIPATION; Start 07/28/18 at 21:00 Acetaminophen/ Hydrocodone Bitart ([place] (10/325)) 1 tab Q4H PRN PO MODERATE PAIN LEVEL 4-6 Last administered on 08/01/18 21:02; Admin Dose 1 TAB; Start 07/28/18 at 21:00 Carisoprodol (Soma) 350 mg BID PRN PO MUSCLE SPASMS; Start 07/28/18 at 21:00 Trazodone HCl (Desyrel) 50 mg HS PRN PO INSOMNIA Last administered on 07/29/18 20:29; Admin Dose 50 MG; Start 07/28/18 at 21:00 Ondansetron HCl (Zofran Inj) 4 mg Q6H PRN IV NAUSEA AND/OR VOMITING; Start 07/28/18 at 21:00 Methylprednisolone Sodium Succinate (Solu-Medrol) 40 mg DAILY IV Last administered on 08/04/18 10:01; Admin Dose 40 MG; Start 07/29/18 at 09:00 Ascorbic Acid (Vitamin C) 500 mg TID PO Last administered on 08/04/18 12:38; Admin Dose 500 MG; Start 07/29/18 at 09:00 Lorazepam (Ativan) 0.5 mg Q6H PRN PO ANXIETY Last administered on 08/01/18 20:56; Admin Dose 0.5 MG; Start 07/29/18 at 20:30 Guaifenesin/ Dextromethorphan (Robitussin Dm Liquid Cup) 5 ml Q4H PRN PO COUGH Last administered on 08/01/18 16:32; Admin Dose 5 ML; Start 07/29/18 at 20:30 Diltiazem HCl 125 ml @ 5 mls/hr TITRATE IV Last administered on 07/30/18 09:40; Admin Dose 5 MLS/HR; Start 07/30/18 at 09:00; Status Hold Dronedarone (Multaq) 400 mg BID WITH MEALS PO Last administered on 08/04/18 10:05; Admin Dose 400 MG; Start 07/30/18 at 09:30 Sildenafil Citrate (Revatio) 10 mg TID PO Last administered on 08/04/18 12:38; Admin Dose 10 MG; Start 07/31/18 at 09:00 Propofol 100 ml @ 1.986 mls/ hr Q12H IV Last administered on 08/04/18at 13:34; Admin Dose 15.888 MLS/HR; Start 08/02/18 at 10:00 Albuterol (Ventolin Hfa) 4 puff Q6H RESP THERAPY INH Last administered on 08/04/18at 13:20; Admin Dose 4 PUFF; Start 08/02/18 at 14:00 Ipratropium [place] (Atrovent Hfa) 4 puff Q6H RESP THERAPY INH Last administered on 08/04/18at 13:20; Admin Dose 4 PUFF; Start 08/02/18 at 14:00 Fluconazole/ Sodium Chloride 50 ml @ 50 mls/hr Q24H IVPB Last administered on 08/03/18at 17:41; Admin Dose 50 MLS/HR; Start 08/02/18 at 17:00 Acetaminophen (Tylenol Liquid) 650 mg Q6H PRN GTB MILD PAIN (1-3) OR TEMPERATURE; Start 08/03/18 at 09:30 Docusate Sodium (Colace Liquid Cup) 100 mg BID PRN GTB CONSTIPATION,,,,; Start 08/03/18 at 09:30 Vancomycin/Sodium Chloride 250 ml @ 125 mls/hr Q24H IVPB Last administered on 08/04/18at 11:02; Admin Dose 125 MLS/HR; Start 08/04/18 at 10:00 IV Flush (NS 10 ml) 10 ml PRN PRN IV IV PROTOCOL; Start 08/03/18 at 10:30 Fentanyl 100 ml @ 2.5 mls/hr TITRATE IV Last administered on 08/04/18at 09:50; Admin Dose 2.5 MLS/HR; Start 08/04/18 at 09:00 Lansoprazole (Prevacid) 30 mg DAILY@06 GTB ; Start 08/05/18 at 06:00 Assessment/Plan Hospital Course (Demo Recall) 1. Hypoxemic respiratory failure 2. Pulmonary fibrosis/severe COPD 3. Elevated BNP most likely secondary to above and significant pulmonary hypertension 4. paroxysmal atrial fibrillation; currently converted back to normal sinus rhythm 5. Encephalopathy 6. Most likely pneumonia 7. History of recent fall and hip fracture status post surgery 8. Anemia 9. Lactic acidosis 10. Hypertension 11. Pulmonary hypertension Recommendations: Off the aspirin since the patient is already on Eliquis. resume eliquis as long as no active bleeding Low-dose diuretics will be continued and adjusted as needed. Continue with vent support. Weaning as/IF tolerated Antibiotic management as per internal medicine We will continue to monitor on telemetry Correct electrolytes as needed Transfusions as needed I have stopped amiodarone given concern about her severe pulmonary disease and pulmonary fibrosis. pt was started on Multaq . Cardizem IV as well as digoxin to control the heart rate better on as-needed basis. TSH is within normal limits Given her pulmonary hypertension and was started on Revatio Thank you for his referral. We will continue to follow along with you DAYRON ROGERS MD [facility] DAYRON ROGERS MD Aug 04, 2018 17:30
[2018-08-04] MEDS: clonAZEPAM 0.5 MG TAB PO PRN (21:00)
[2018-08-04] MEDS ORDERED: NORepinephrine 8MG/250 ML (PMX 250 ML IV SCH (23:00)
[2018-08-04] MEDS ORDERED: SOD CHLORIDE 0.9% 1,000 ML IV ONE (23:00)
[2018-08-05] VITALS (105 sets, daily range): BP systolic 64–137; BP diastolic 34–101; PULSE 57–124; RESP 14–31
[2018-08-05] MEDS: ALBUTEROL HFA 8 GM INHALER INH SCH ×4 (01:40→20:05)
[2018-08-05] MEDS: IPRATROPIUM (HFA) 12.9 GM INHALER INH SCH ×4 (01:41→20:05)
[2018-08-05] MEDS: FENTAnyl (DRIP) 1000 mcg/100mL 100 ML IV SCH ×3 (01:45→22:14)
[2018-08-05] MEDS: LORAZEPAM 0.5 MG TAB PO PRN (04:06)
[2018-08-05] MEDS: LANSOPRAZOLE 30 MG CAP GTB SCH (06:35)
[2018-08-05] MEDS: PROPOFOL 100 ML IV SCH (06:36)
--- NOTE | 2018-08-05 08:28 | PN ---
DATE: 08/05/2018 SUBJECTIVE: The patient is critically ill, started on pressor support overnight. No other events no db. No hemoptysis, hematemesis, or hematochezia. The patient remains on high flow FIO2. OBJECTIVE: VITAL SIGNS: Blood pressure is 99/35, respirations 16, pulse 70, temperature 97.7. HEENT: Head is normocephalic. NECK: Supple. HEART: Regular rate. LUNGS: Show diminished breath sounds at the base. ABDOMEN: Soft, nontender to palpation without rebound or guarding. EXTREMITIES: Negative for clubbing, cyanosis, no edema. DERMATOLOGIC: No rashes. MUSCULOSKELETAL: No joint effusion. NEUROLOGIC: No change in exam. The patient remains obtunded. LABORATORY DATA: Shows sodium 146, potassium 4.0, BUN 43, creatinine 0.87. White count 11.6, hemogl obin 9.0, platelet count 94. IMAGING STUDY: The patient's chest x-ray was reviewed, showed alveolar infiltrates, unchanged. ASSESSMENT AND PLAN: 1. Nonoliguric acute kidney injury with unknown baseline creatinine. Etiology of acute kidney injur y is secondary to hemodynamics, sepsis. The patient's renal function has been improving. Continue c urrent treatment plan. Continue pressor support, maintain MAP of 65. Continue IV antibiotics. We w ill start the patient on IV hydration, and monitor closely. 2. Hypernatremia. We will increase the patient's free water flushes to 200 mL q.4h. Monitor closel y. 3. Anemia. Continue to monitor hemoglobin and hematocrit levels. 4. Mineral bone disorder, monitor calcium and phosphorus levels. 5. Septic shock secondary to pneumonia, bacteremia. The patient is currently on pressor support, IV antibiotics. We will start patient on IV fluids. 6. Ventilator-dependent respiratory failure. Vent settings and ABG was reviewed. Continue to monit or. 7. Encephalopathy, etiology is toxic metabolic. 8. Atrial fibrillation. Continue medical management. 9. History of peripheral vascular disease. 10. Status post hip fracture. Please note, I spent over 30 minutes of critical care time with this patient. Dictated By: GENEVIEVE BERNSTEIN/NTS Conf#: [id number] DID#: [id number] CC: ABDIAS STAPLES MD; GENEVIEVE MENJIVAR DO;*EndCC*
--- NOTE | 2018-08-05 08:28 | CONS ---
Consult Date/Type/Reason Admit Date/Time Jul 28, 2018 at 18:16 Initial Consult Date 07/28/18 Type of Consultation: cv Requesting Provider: ABDIAS STAPLES MD Date/Time of Note DATE: 08/05/18 TIME: 08:23 Subjective Cardiology follow-up progress note Subjective: Discussed with the staff and Telemetry was reviewed. Patient REMAINS INTUBATED on vent in ICU he remains in NSR. No episode of atrial fibrillation No bleeding is reported pt with hyotension over night and on levophed now Objective: General: Elderly female INTUBATED on vent . HEENT: NC/AT. pupils are equal. round. NECK: + JVD. no stridor. CV regular rate and rhythm systolic murmur; no gallop or rubs. PULM: + wheezing + rhonchi. GI: SOFT, NT, ND, no rebound or guarding Extremity: No significant LE edema. no clubbing. neuro: intubated on vent Psych: calm rectal: deferred : Deferred EKG was personally within normal sinus rhythm with no evidence of ischemia CT pulmonary angiogram done in the emergency room shows: 1. Moderate pulmonary fibrosis, worse at the bilateral lung apices. Associated mediastinal adenopathy. Underlying mass not entirely excluded. Further ev aluation with PET-CT may be obtained. 2. Small right multiloculated pleural effusion. Moderate left layering pleural effusion. 3. Streaky bibasilar opacities compatible with atelectasis or pneumonia. 4. Dilated pulmonary trunk and bilateral pulmonary arteries compatible with sequelae of pulmonary hypertension. 5. Left renal 4 cm hyperdense cyst or mass. Further evaluation with multiphase contrast enhanced CT or MR may be obtained. Echocardiogram was personally reviewed which shows: Normal left ventricular systolic function. Normal left ventricular cavity size. Mild concentric left ventricular hypertrophy. Ejection fraction is visually estimated at 55 %. There is mild enlargement of left atrium. Normal appearance of the mitral valve. Mild mitral valve regurgitation. Aortic sclerosis without significant stenosis. Aortic cusps appear mildly calcified. Trileaflet aortic valve. Trace aortic valve regurgitation. Normal appearance of the tricuspid valve. Estimated peak PA systolic pressure 71 mmHg. There is mild tricuspid regurgitation. Normal size and normal respiratory collapse consistent with normal right atrial pressure. Objective Vitals Vital Signs Date Temp Pulse Resp B/P (MAP) Pulse Ox O2 O2 Flow FiO2 Time Delivery Rate 08/05/18 70 16 99/35 (56) 97 06:45 08/05/18 97.7 Mechanical 06:00 Ventilator 08/05/18 70 05:00 Intake and Output 08/04/18 08/04/18 08/05/18 1515:00 23:00 07:00 IntakeIntake Total 1170.821 ml 832.968 ml 1004.607 ml OutputOutput Total 690 ml 345 ml 320 ml BalanceBalance 480.821 ml 487.968 ml 684.607 ml Results/Medications Result Diagram: 08/04/18 0840 08/05/18 0510 Results 24 hrs Laboratory Tests Test 08/04/18 08:40 08/04/18 08:42 08/05/18 05:10 White Blood Count 11.6 H Red Blood Count 2.81 L Hemoglobin 9.0 L Hematocrit 28.5 L Mean Corpuscular Volume 101.4 H Mean Corpuscular Hemoglobin 32.0 Mean Corpuscular 31.6 L Hemoglobin Concent Red Cell Distribution Width 19.2 H Platelet Count 94 #L Mean Platelet Volume 11.7 H Immature Granulocytes % 0.500 H Neutrophils % 83.2 H Lymphocytes % 10.5 L Monocytes % 5.0 Eosinophils % 0.7 Basophils % 0.1 Nucleated Red Blood Cells % 0.0 Immature Granulocytes # 0.060 H Neutrophils # 9.7 H Lymphocytes # 1.2 Monocytes # 0.6 Eosinophils # 0.1 Basophils # 0.0 Nucleated Red Blood Cells # 0.0 Blood Gas Specimen Source Blood arterial Arterial Blood Date Drawn 08/04/2018 8:22:00 AM Arterial Blood pH 7.460 H (Temp corrected) Arterial Blood pCO2 36.1 (Temp correct) Arterial Blood pO2 58.5 L (Temp corrected) Arterial Blood HCO3 25.1 Arterial Blood Base Excess 1.4 Arterial Blood 90.0 L Oxygen Saturation Vick Test ACCEPTAB Arterial Blood Gas Right Radial Puncture Site Arterial 0.7 Blood Carboxyhemoglobin Arterial Blood Methemoglobin 0.2 Blood Gas A-a O2 149.1 H Differential Oxyhemoglobin Percent 89.2 L Blood Gas Temperature 37.0 Blood Gas Respiration Rate 18.0 Blood Gas Actual 27 Respiration Rate Blood Gas Modality VENT - AC FiO2 35.0 Blood Gas Tidal Volume 400.0 Blood Gas Low PEEP Setting 5.0 Blood Gas Notified Whom TM Blood Gas Notified Time 08/04/2018 8:49:00 AM Sodium Level 146 H Potassium Level 4.0 Chloride Level 109 Carbon Dioxide Level 26 Anion Gap 11 Blood Urea Nitrogen 43 H Creatinine 0.87 Est Glomerular Filtrat Rate mL/min Glucose Level 132 Calcium Level 8.1 L Total Bilirubin 0.1 L Direct Bilirubin 0.00 Indirect Bilirubin 0.1 Aspartate Amino 63 H Transf (AST/SGOT) Alanine 76 H Aminotransferase (ALT/SGPT) Alkaline Phosphatase 91 Total Protein 4.9 L Albumin 2.4 L Globulin 2.50 Albumin/Globulin Ratio 0.96 Home Meds Reported Medications Ondansetron Hcl* (Zofran*) 8 Mg Tablet, 8 MG PO Q6H PRN for NAUSEA AND OR VOMITING, TAB 07/28/18 Guaifenesin (Xpect) 400 Mg Tablet, 400 MG PO Q12, TAB 07/28/18 Acetaminophen* (Acetaminophen*) 650 Mg Tablet, 650 MG PO Q6H PRN for PAIN AND OR ELEVATED TEMP, #30 TAB 07/28/18 Trazodone Hcl* (Trazodone Hcl*) 50 Mg Tablet, 50 MG PO QHS, #30 TAB 07/28/18 Carisoprodol* (Carisoprodol*) 350 Mg Tablet, 350 MG PO BID PRN for MUSCLE SPASMS, TAB 07/28/18 Montelukast Sodium* (Singulair*) 10 Mg Tablet, 10 MG PO QHS, #30 TAB 07/28/18 Sennosides* (Senna Lax*) 8.6 Mg Tablet, 2 TAB PO QHS, TAB 07/28/18 Fluoxetine Hcl* (Prozac*) 20 Mg Capsule, 20 MG PO DAILY, CAP 07/28/18 Promethazine Hcl* (Phenergan* Liq) 6.25 Mg/5 Ml Syrup, 12.5 MG PO Q6H PRN for COUGH, ML 07/28/18 Lansoprazole* (Lansoprazole*) 30 Mg Capsule.dr, 30 MG PO DAILY, CAP 07/28/18 Vit C/E/Zn/Coppr/Lutein/Zeaxan (Preservision Areds 2 Softgel) 1 Each Capsule, 2 EACH PO DAILY, CAP 07/28/18 Prednisone* (Prednisone*) 20 Mg Tab, 40 MG PO DAILY, TAB 07/28/18 Chlorhexidine Gluconate (Peridex) 473 Ml Mouthwash, 15 ML MM BID, BOTTLE 07/28/18 [place]-3 Acid Ethyl Esters (Lovaza) 1 Gm Capsule, 2 GM PO DAILY, CAP 07/28/18 Hydrocodone/Acetaminophen ([place] 10-325 Tablet) 1 Each Tablet, 1 EACH PO Q4 PRN for SEVERE PAIN LEVEL 7-10, TAB 07/28/18 Multivitamins* (Theragran*) 1 Tab Tab, 1 TAB PO DAILY, TAB 07/28/18 Guaifenesin (Guaifenesin) 600 Mg Tablet.sa, 600 MG PO BID, TAB 07/28/18 Magnesium Hydroxide* (Milk Of Magnesia*) 400 Mg/5 Ml Oral.susp, 30 ML PO DAILY PRN for CHEST PAIN, ML 07/28/18 Metoprolol Tartrate* (Lopressor*) 50 Mg Tab, 50 MG PO DAILY, #60 TAB HOLD FOR SBP<110 OR HR<60 07/28/18 Atorvastatin Calcium (Atorvastatin Calcium) 10 Mg Tablet, 10 MG PO QHS, #30 TAB 07/28/18 Lidocaine (Lidocaine) 5 Gm Cream..g., 5 GM TP DAILY 07/28/18 Furosemide* (Lasix*) 20 Mg Tablet, 20 MG PO DAILY, TAB 07/28/18 Lactobacillus Rhamnosus* (Culturelle*) 1 Each Cap.sprink, 1 CAP PO DAILY, CAP 07/28/18 Ipratropium-Albuterol (Ipratropium-Albuterol) 0.5-3 Mg/3 Ml Ampul.neb, 3 ML INHALATION Q4 PRN for SHORTNESS OF BREATH, #30 VIAL 07/28/18 Gabapentin* (Gabapentin*) 100 Mg Capsule, 200 MG PO BID, #180 CAP 07/28/18 Folic Acid* (Folic Acid*) 1 Mg Tablet, 1 MG PO DAILY, TAB 07/28/18 Ferrous Sulfate* (Ferrous Sulfate*) 325 Mg Tabec, 325 MG PO TID, TAB 07/28/18 Estrogens Conjugated* (Premarin*) 0.45 Mg Tablet, 0.45 MG PO DAILY, TAB 07/28/18 Bisacodyl (Dulcolax) 10 Mg Supp.rect, 10 MG RC Q48, SUPP.RECT 07/28/18 Docusate Sodium* (Colace*) 100 Mg Capsule, 100 MG PO QHS PRN for CONSTIPATION, #60 CAP 07/28/18 Hydromorphone Hcl* (Dilaudid*) 2 Mg Tablet, 2 MG PO Q6H PRN for SEVERE PAIN LEVEL 7-10, TAB 07/28/18 Cyanocobalamin* (Vitamin B12*) 500 Mcg Tab, 500 MCG PO DAILY, TAB 07/28/18 Clonidine Hcl* (Clonidine Hcl*) 0.1 Mg Tab, 0.1 MG PO Q8, TAB 07/28/18 Clonazepam* (Clonazepam*) 0.5 Mg Tablet, 0.5 MG PO BID PRN for ANXIETY, TAB 07/28/18 Calcium Carbonate/Vitamin D3 ([place] 500+D Tablet) 1 Each Tablet, 1 EACH PO BID, TAB 07/28/18 Fluticasone/Vilanterol (Breo Ellipta 200-25 Mcg INH) 1 Each Blst.w.dev, 1 PUFF INHALATION DAILY, #1 INHALER 07/28/18 Lorazepam* (Lorazepam*) 0.5 Mg Tablet, 0.5 MG PO Q6 PRN for ANXIETY, TAB 07/28/18 Diphenhydramine Hcl* (Benadryl*) 25 Mg Cap, 25 MG PO Q8 PRN for PRN, CAP 07/28/18 Aspirin* (Aspirin* Chew) 81 Mg Tab.chew, 81 MG PO DAILY, TAB.CHEW 07/28/18 Ascorbic Acid* (Vitamin C*) 500 Mg Capsule.sa, 500 MG PO TID, CAP 07/28/18 Apixaban* (Eliquis*) 5 Mg Tablet, 5 MG PO BID, TAB 07/28/18 Hydrocortisone Acetate (Anusol-Hc) 25 Mg Supp.rect, 25 MG NC BID PRN for CONSTIPATION, SUPP.RECT 07/28/18 Amiodarone Hcl* (Amiodarone Hcl*) 200 Mg Tablet, 200 MG PO BID, #30 TAB HOLD FOR SBP<110 OR HR<60 07/28/18 Medications Current Medications Vancomycin HCl (Vanco Iv Per Pharmacy) VANCOMYCIN PER PHARMACY PER PROTOCOL XX ; Start 07/28/18 at 17:30 Cefepime HCl 50 ml @ 100 mls/hr Q12 IVPB Last administered on 1/29/19at 21:32; Admin Dose 100 MLS/HR; Start 07/28/18 at 21:00 Albuterol/ Ipratropium (Duoneb) 3 ml Q6H RESP THERAPY HHN Last administered on 08/02/18 01:07; Admin Dose 3 ML; Start 07/28/18 at 20:00; Status Hold Apixaban (Eliquis) 5 mg BID PO Last administered on 08/04/18 21:32; Admin Dose 5 MG; Start 07/28/18 at 21:00 Calcium/Vitamin D (Oyster Shell/ Vit-D (500/200)) 1 tab BID PO Last administered on 08/04/18 21:32; Admin Dose 1 TAB; Start 07/28/18 at 21:00 Clonazepam (Klonopin) 0.5 mg BID PRN PO ANXIETY Last administered on 08/04/18 21:00; Admin Dose 0.5 MG; Start 07/28/18 at 21:00 Clonidine (Catapres) 0.1 mg TID PRN PO ELEVATED BLOOD PRESSURE Last administered on 07/29/18 16:54; Admin Dose 0.1 MG; Start 07/28/18 at 21:00 Hydromorphone HCl (Dilaudid) 2 mg Q4H PRN PO SEVERE PAIN LEVEL 7-10 Last administered on 08/01/18 23:34; Admin Dose 2 MG; Start 07/28/18 at 21:00 Docusate Sodium (Colace) 100 mg BID PRN PO CONSTIPATION; Start 07/28/18 at 21:00 Gabapentin (Neurontin) 200 mg BID PO Last administered on 08/04/18 21:34; Admin Dose 200 MG; Start 07/28/18 at 21:00 Metoprolol Tartrate (Lopressor) 25 mg BID PO Last administered on 08/04/18 10:05; Admin Dose 25 MG; Start 07/28/18 at 21:00 Magnesium Hydroxide (Milk Of Mag) 30 ml DAILY PRN PO CONSTIPATION; Start 07/28/18 at 21:00 Acetaminophen/ Hydrocodone Bitart ([place] (10/325)) 1 tab Q4H PRN PO MODERATE PAIN LEVEL 4-6 Last administered on 08/01/18 21:02; Admin Dose 1 TAB; Start 07/28/18 at 21:00 Carisoprodol (Soma) 350 mg BID PRN PO MUSCLE SPASMS; Start 07/28/18 at 21:00 Trazodone HCl (Desyrel) 50 mg HS PRN PO INSOMNIA Last administered on 07/29/18 20:29; Admin Dose 50 MG; Start 07/28/18 at 21:00 Ondansetron HCl (Zofran Inj) 4 mg Q6H PRN IV NAUSEA AND/OR VOMITING; Start 07/28/18 at 21:00 Methylprednisolone Sodium Succinate (Solu-Medrol) 40 mg DAILY IV Last administered on 08/04/18 10:01; Admin Dose 40 MG; Start 07/29/18 at 09:00 Ascorbic Acid (Vitamin C) 500 mg TID PO Last administered on 08/04/18 21:33; Admin Dose 500 MG; Start 07/29/18 at 09:00 Lorazepam (Ativan) 0.5 mg Q6H PRN PO ANXIETY Last administered on 08/05/18 04:06; Admin Dose 0.5 MG; Start 07/29/18 at 20:30 Guaifenesin/ Dextromethorphan (Robitussin Dm Liquid Cup) 5 ml Q4H PRN PO COUGH Last administered on 08/01/18 16:32; Admin Dose 5 ML; Start 07/29/18 at 20:30 Diltiazem HCl 125 ml @ 5 mls/hr TITRATE IV Last administered on 07/30/18 09:40; Admin Dose 5 MLS/HR; Start 07/30/18 at 09:00; Status Hold Dronedarone (Multaq) 400 mg BID WITH MEALS PO Last administered on 08/04/18 17:30; Admin Dose 400 MG; Start 07/30/18 at 09:30 Sildenafil Citrate (Revatio) 10 mg TID PO Last administered on 08/04/18 21:34; Admin Dose 10 MG; Start 07/31/18 at 09:00 Propofol 100 ml @ 1.986 mls/ hr Q12H IV Last administered on 08/05/18 06:36; Admin Dose 11.916 MLS/HR; Start 08/02/18 at 10:00 Albuterol (Ventolin Hfa) 4 puff Q6H RESP THERAPY INH Last administered on 1/30/19at 01:40; Admin Dose 4 PUFF; Start 08/02/18 at 14:00 Ipratropium [place] (Atrovent Hfa) 4 puff Q6H RESP THERAPY INH Last administered on 08/05/18at 01:41; Admin Dose 4 PUFF; Start 08/02/18 at 14:00 Fluconazole/ Sodium Chloride 50 ml @ 50 mls/hr Q24H IVPB Last administered on 08/04/18at 17:30; Admin Dose 50 MLS/HR; Start 08/02/18 at 17:00 Acetaminophen (Tylenol Liquid) 650 mg Q6H PRN GTB MILD PAIN (1-3) OR TEMPERATURE; Start 08/03/18 at 09:30 Docusate Sodium (Colace Liquid Cup) 100 mg BID PRN GTB CONSTIPATION,,,,; Start 08/03/18 at 09:30 Vancomycin/Sodium Chloride 250 ml @ 125 mls/hr Q24H IVPB Last administered on 08/04/18at 11:02; Admin Dose 125 MLS/HR; Start 08/04/18 at 10:00 IV Flush (NS 10 ml) 10 ml PRN PRN IV IV PROTOCOL; Start 08/03/18 at 10:30 Fentanyl 100 ml @ 2.5 mls/hr TITRATE IV Last administered on 08/05/18at 01:45; Admin Dose 10 MLS/HR; Start 08/04/18 at 09:00 Lansoprazole (Prevacid) 30 mg DAILY@06 GTB Last administered on 08/05/18at 06: 35; Admin Dose 30 MG; Start 08/05/18 at 06:00 Norepinephrine 250 ml @ 1.875 mls/ hr TITRATE IV Last administered on 08/04/18at 23:41; Admin Dose 1.875 MLS/HR; Start 08/04/18 at 23:00 Sodium Chloride 1,000 ml @ 75 mls/hr [id number] IV ; Start 08/05/18 at 08:00 Assessment/Plan Hospital Course (Demo Recall) 1. Hypoxemic respiratory failure 2. Pulmonary fibrosis/severe COPD 3. Elevated BNP most likely secondary to above and significant pulmonary hypertension 4. paroxysmal atrial fibrillation; currently converted back to normal sinus rhythm 5. Encephalopathy 6. Most likely pneumonia 7. History of recent fall and hip fracture status post surgery 8. Anemia 9. Lactic acidosis 10. Hypertension 11. Pulmonary hypertension 12.shock. sepsis Recommendations: Off the aspirin since the patient is already on Eliquis. resume eliquis as long as no active bleeding Continue with vent support. Antibiotic management as per internal medicine We will continue to monitor on telemetry Correct electrolytes as needed Transfusions as needed I have stopped amiodarone given concern about her severe pulmonary disease and pulmonary fibrosis. pt was started on Multaq . Cardizem IV as well as digoxin to control the heart rate better on as-needed basis. TSH is within normal limits Given her pulmonary hypertension and was started on Revatio but currently too hypotensive to tolerate. will stop it Thank you for his referral. We will continue to follow along with you DAYRON ROGERS MD [facility] DAYRON ROGERS MD Aug 05, 2018 08:28
--- NOTE | 2018-08-05 08:44 | CONS ---
Assessment/Plan Assessment/Plan Assessment/Plan (Daily) Ventilator setting; AC of 18, tidal volume 400, PEEP of 5, 70% FiO2. Patient is currently on propofol at 50 mics per kilogram per minute, fentanyl 100 mics per hour, Levophed 6 mics per minute. Assessment recommendations; next 1. Patient admitted with severe bilateral community acquired pneumonia requiring intubation. 2. History of prior tracheostomy with decannulation. 3. History of pancreatic mass. 4. History of recent right femoral ORIF. Malou removed from wound. 5. Neuropathy. 6. History of pulmonary and systemic hypertension. 7. Peripheral arterial disease. 8. Patient is developing what appears to be air hunger. Increase tidal volume to 500. Obtain follow-up ABG. Continue current supportive measures. Obtain follow-up chest x-ray. Prognosis is guarded. 35 minutes of critical care time was spent evaluating the patient. Consultation Date/Type/Reason Admit Date/Time Jul 28, 2018 at 18:16 Initial Consult Date 07/28/18 Type of Consult Pulmonary Requesting Provider: ABDIAS STAPLES MD Date/Time of Note DATE: 08/05/18 TIME: 08:40 24 HR Interval Summary Free Text/Dictation Patient's condition remains critical. Still requiring fairly high FiO2 for hypoxemia. General exam; elderly female, orally intubated, sedated but appearing anxious and mildly agitated. Exam/Review of Systems Exam Vitals Vital Signs Date Temp Pulse Resp B/P (MAP) Pulse Ox O2 O2 Flow FiO2 Time Delivery Rate 08/05/18 70 16 99/35 (56) 97 06:45 08/05/18 97.7 Mechanical 06:00 Ventilator 08/05/18 70 05:00 Intake and Output 08/04/18 08/04/18 08/05/18 1515:00 23:00 07:00 IntakeIntake Total 1170.821 ml 832.968 ml 1004.607 ml OutputOutput Total 690 ml 345 ml 320 ml BalanceBalance 480.821 ml 487.968 ml 684.607 ml Exam HEENT exam; supple neck, no JVD. No lymphadenopathy. Midline trachea. No thyromegaly. Patient is edentulous. Orally intubated. There is a tracheostomy scar. No neck masses. Chest exam; diminished breath sounds throughout. S1-S2 audible, no murmurs. Regular rhythm. Abdomen exam; soft, nondistended. No organomegaly. Scaphoid. Bowel sounds audible. Extremity exam; no peripheral edema or clubbing. 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 Results Result Diagram: 08/04/18 0840 08/05/18 0510 Results 24hrs Laboratory Tests Test 08/04/18 08:42 08/05/18 05:10 Blood Gas Specimen Source Blood arterial Arterial Blood Date Drawn 08/04/2018 8:22:00 AM Arterial Blood pH (Temp corrected) 7.460 H Arterial Blood pCO2 (Temp correct) 36.1 Arterial Blood pO2 (Temp corrected) 58.5 L Arterial Blood HCO3 25.1 Arterial Blood Base Excess 1.4 Arterial Blood Oxygen Saturation 90.0 L Vick Test ACCEPTAB Arterial Blood Gas Puncture Site Right Radial Arterial Blood Carboxyhemoglobin 0.7 Arterial Blood Methemoglobin 0.2 Blood Gas A-a O2 Differential 149.1 H Oxyhemoglobin Percent 89.2 L Blood Gas Temperature 37.0 Blood Gas Respiration Rate 18.0 Blood Gas Actual Respiration Rate 27 Blood Gas Modality VENT - AC FiO2 35.0 Blood Gas Tidal Volume 400.0 Blood Gas Low PEEP Setting 5.0 Blood Gas Notified Whom TM Blood Gas Notified Time 08/04/2018 8:49:00 AM Sodium Level 146 H Potassium Level 4.0 Chloride Level 109 Carbon Dioxide Level 26 Anion Gap 11 Blood Urea Nitrogen 43 H Creatinine 0.87 Est Glomerular Filtrat Rate mL/min Glucose Level 132 Calcium Level 8.1 L Total Bilirubin 0.1 L Direct Bilirubin 0.00 Indirect Bilirubin 0.1 Aspartate Amino Transf (AST/SGOT) 63 H Alanine Aminotransferase (ALT/SGPT) 76 H Alkaline Phosphatase 91 Total Protein 4.9 L Albumin 2.4 L Globulin 2.50 Albumin/Globulin Ratio 0.96 Medications Medication Current Medications Vancomycin HCl (Vanco Iv Per Pharmacy) VANCOMYCIN PER PHARMACY PER PROTOCOL XX ; Start 07/28/18 at 17:30 Cefepime HCl 50 ml @ 100 mls/hr Q12 IVPB Last administered on 08/04/18at 21:32; Admin Dose 100 MLS/HR; Start 07/28/18 at 21:00 Albuterol/ Ipratropium (Duoneb) 3 ml Q6H RESP THERAPY HHN Last administered on 08/02/18at 01:07; Admin Dose 3 ML; Start 07/28/18 at 20:00; Status Hold Apixaban (Eliquis) 5 mg BID PO Last administered on 08/04/18 21:32; Admin Dose 5 MG; Start 07/28/18 at 21:00 Calcium/Vitamin D (Oyster Shell/ Vit-D (500/200)) 1 tab BID PO Last administered on 08/04/18 21:32; Admin Dose 1 TAB; Start 07/28/18 at 21:00 Clonazepam (Klonopin) 0.5 mg BID PRN PO ANXIETY Last administered on 08/04/18 21:00; Admin Dose 0.5 MG; Start 07/28/18 at 21:00 Clonidine (Catapres) 0.1 mg TID PRN PO ELEVATED BLOOD PRESSURE Last administered on 07/29/18 16:54; Admin Dose 0.1 MG; Start 07/28/18 at 21:00 Hydromorphone HCl (Dilaudid) 2 mg Q4H PRN PO SEVERE PAIN LEVEL 7-10 Last administered on 08/01/18 23:34; Admin Dose 2 MG; Start 07/28/18 at 21:00 Docusate Sodium (Colace) 100 mg BID PRN PO CONSTIPATION; Start 07/28/18 at 21:00 Gabapentin (Neurontin) 200 mg BID PO Last administered on 08/04/18 21:34; Admin Dose 200 MG; Start 07/28/18 at 21:00 Metoprolol Tartrate (Lopressor) 25 mg BID PO Last administered on 08/04/18 10:05; Admin Dose 25 MG; Start 07/28/18 at 21:00 Magnesium Hydroxide (Milk Of Mag) 30 ml DAILY PRN PO CONSTIPATION; Start 07/28/18 at 21:00 Acetaminophen/ Hydrocodone Bitart ([place] (10/325)) 1 tab Q4H PRN PO MODERATE PAIN LEVEL 4-6 Last administered on 08/01/18 21:02; Admin Dose 1 TAB; Start 07/28/18 at 21:00 Carisoprodol (Soma) 350 mg BID PRN PO MUSCLE SPASMS; Start 07/28/18 at 21:00 Trazodone HCl (Desyrel) 50 mg HS PRN PO INSOMNIA Last administered on 07/29/18 20:29; Admin Dose 50 MG; Start 07/28/18 at 21:00 Ondansetron HCl (Zofran Inj) 4 mg Q6H PRN IV NAUSEA AND/OR VOMITING; Start 07/28/18 at 21:00 Methylprednisolone Sodium Succinate (Solu-Medrol) 40 mg DAILY IV Last administered on 08/04/18 10:01; Admin Dose 40 MG; Start 07/29/18 at 09:00 Ascorbic Acid (Vitamin C) 500 mg TID PO Last administered on 08/04/18 21:33; Admin Dose 500 MG; Start 07/29/18 at 09:00 Lorazepam (Ativan) 0.5 mg Q6H PRN PO ANXIETY Last administered on 08/05/18 04:06; Admin Dose 0.5 MG; Start 07/29/18 at 20:30 Guaifenesin/ Dextromethorphan (Robitussin Dm Liquid Cup) 5 ml Q4H PRN PO COUGH Last administered on 08/01/18 16:32; Admin Dose 5 ML; Start 07/29/18 at 20:30 Diltiazem HCl 125 ml @ 5 mls/hr TITRATE IV Last administered on 07/30/18 09:40; Admin Dose 5 MLS/HR; Start 07/30/18 at 09:00; Status Hold Dronedarone (Multaq) 400 mg BID WITH MEALS PO Last administered on 08/04/18 17:30; Admin Dose 400 MG; Start 07/30/18 at 09:30 Propofol 100 ml @ 1.986 mls/ hr Q12H IV Last administered on 08/05/18 06:36; Admin Dose 11.916 MLS/HR; Start 08/02/18 at 10:00 Albuterol (Ventolin Hfa) 4 puff Q6H RESP THERAPY INH Last administered on 08/05/18 01:40; Admin Dose 4 PUFF; Start 08/02/18 at 14:00 Ipratropium [place] (Atrovent Hfa) 4 puff Q6H RESP THERAPY INH Last administered on 08/05/18 01:41; Admin Dose 4 PUFF; Start 08/02/18 at 14:00 Fluconazole/ Sodium Chloride 50 ml @ 50 mls/hr Q24H IVPB Last administered on 08/04/18 17:30; Admin Dose 50 MLS/HR; Start 08/02/18 at 17:00 Acetaminophen (Tylenol Liquid) 650 mg Q6H PRN GTB MILD PAIN (1-3) OR TEMPERATUR E; Start 08/03/18 at 09:30 Docusate Sodium (Colace Liquid Cup) 100 mg BID PRN GTB CONSTIPATION,,,,; Start 08/03/18 at 09:30 Vancomycin/Sodium Chloride 250 ml @ 125 mls/hr Q24H IVPB Last administered on 08/04/18at 11:02; Admin Dose 125 MLS/HR; Start 08/04/18 at 10:00 IV Flush (NS 10 ml) 10 ml PRN PRN IV IV PROTOCOL; Start 08/03/18 at 10:30 Fentanyl 100 ml @ 2.5 mls/hr TITRATE IV Last administered on 08/05/18at 01:45; Admin Dose 10 MLS/HR; Start 08/04/18 at 09:00 Lansoprazole (Prevacid) 30 mg DAILY@06 GTB Last administered on 08/05/18at 06:35; Admin Dose 30 MG; Start 08/05/18 at 06:00 Norepinephrine 250 ml @ 1.875 mls/ hr TITRATE IV Last administered on 08/04/18at 23:41; Admin Dose 1.875 MLS/HR; Start 08/04/18 at 23:00 Sodium Chloride 1,000 ml @ 75 mls/hr [id number] IV ; Start 08/05/18 at 08:00 DEJUAN OSULLIVAN Aug 05, 2018 08:44
[2018-08-05] MEDS: APIXABAN 5 MG TABLET PO SCH (09:00)
[2018-08-05] MEDS: METOPROLOL 25 MG TAB PO SCH ×2 (09:00→21:00)
[2018-08-05] MEDS: ASCORBIC ACID 500 MG TAB PO SCH ×3 (09:10→20:57)
[2018-08-05] MEDS: GABAPENTIN 100 MG CAP PO SCH ×2 (09:10→20:57)
[2018-08-05] MEDS: DRONEDARONE HYDROCHLORIDE 400 MG TAB PO SCH ×2 (09:10→17:06)
[2018-08-05] MEDS: CALCIUM/VITAMIN D (500/200) TAB PO SCH ×2 (09:10→20:57)
[2018-08-05] MEDS: METHYLPREDNISOLONE 40 MG INJ IV SCH (09:11)
[2018-08-05] MEDS: SOD CHLORIDE 0.9% 1,000 ML IV SCH ×2 (09:12→20:57)
[2018-08-05] MEDS: CEFEPIME 1GM/50 ML (PMX) 50 ML IVPB SCH ×2 (09:12→20:56)
[2018-08-05] MEDS: VANCOMYCIN 750 MG (PMX) 250 ML IVPB SCH (10:58)
[2018-08-05] MEDS: MIDAZOLAM (DRIP) 50 mg/50 mL 50 ML IV SCH (11:58)
[2018-08-05] MEDS ORDERED: NORepinephrine 8MG/250 ML (PMX 250 ML IV SCH (13:00)
[2018-08-05] MEDS ORDERED: NA BICARBONATE 8.4% 50 ML SYG IV ONE (13:00)
--- NOTE | 2018-08-05 16:29 | CONS ---
Assessment/Plan Assessment/Plan Hospital Course (Demo Recall) No acute events patient remains intubated sedated in no distress no fevers overnight. No labs this morning. Microbiology: Sputum culture grew Ivania albicans, blood culture on admission grew coag negative staph species Involving: Endotracheal tube and NG tube Landis catheter PICC line Antimicrobials: Cefepime, vancomycin, fluconazole Allergies: Penicillin, tetracycline Physical examination: This is a fragile chronically ill-appearing wasted elderly woman who is in no distress. Head atraumatic normocephalic sclera nonicteric. Neck is supple. Chest rise symmetrical breath sounds diminished bases. Heart: S1-S2. Abdomen soft bowel sounds present extremities without cyanosis. Assessment: 1. Severe sepsis, present on admission 2. Acute on chronic respiratory failure, status post intubation 08/02/18 3. Healthcare associated pneumonia/ARDS 4. Coag negative staph bacteremia, possibly contaminant 5. Peripheral arterial disease status post stent 6. Pancreatic head mass, patient is following with a specialist yearly 7. Recent right hip fracture status post surgical intervention Plan: Patient remains unchanged, stable, continue antibiotics, vent support per pulmonary rec-s Consultation Date/Type/Reason Admit Date/Time Jul 28, 2018 at 18:16 Initial Consult Date 07/28/18 Type of Consult id Requesting Provider: ABDIAS STAPLES MD Date/Time of Note DATE: 08/05/18 TIME: 16:28 Exam/Review of Systems Exam Vitals Vital Signs Date Temp Pulse Resp B/P (MAP) Pulse Ox O2 O2 Flow FiO2 Time Delivery Rate 08/05/18 65 20 99 60 13:50 08/05/18 130/50 Mechanical 13:45 (76) Ventilator 08/05/18 99.2 11:45 Intake and Output 08/04/18 08/04/18 08/05/18 1515:00 23:00 07:00 IntakeIntake Total 1170.821 ml 832.968 ml 1026.507 ml OutputOutput Total 690 ml 345 ml 320 ml BalanceBalance 480.821 ml 487.968 ml 706.507 ml Results Result Diagram: 08/04/18 0840 08/05/18 0510 Results 24hrs Laboratory Tests Test 08/04/18 17:46 08/05/18 05:10 08/05/18 08:44 Stool Occult Blood POSITIVE Sodium Level 146 H Potassium Level 4.0 Chloride Level 109 Carbon Dioxide Level 26 Anion Gap 11 Blood Urea Nitrogen 43 H Creatinine 0.87 Est Glomerular Filtrat Rate mL/min Glucose Level 132 Calcium Level 8.1 L Total Bilirubin 0.1 L Direct Bilirubin 0.00 Indirect Bilirubin 0.1 Aspartate Amino 63 H Transf (AST/SGOT) Alanine 76 H Aminotransferase (ALT/SGPT) Alkaline Phosphatase 91 Total Protein 4.9 L Albumin 2.4 L Globulin 2.50 Albumin/Globulin Ratio 0.96 Blood Gas Specimen Source Blood arterial Arterial Blood Date Drawn 08/05/2018 10:30:35 AM Arterial Blood pH 7.249 *L (Temp corrected) Arterial Blood pCO2 55.0 H (Temp correct) Arterial Blood pO2 71.8 L (Temp corrected) Arterial Blood HCO3 23.5 Arterial Blood Base Excess -4.0 L Arterial Blood 91.9 L Oxygen Saturation Vick Test ACCEPTAB Arterial Blood Gas Right Radial Puncture Site Arterial 0.2 Blood Carboxyhemoglobin Arterial Blood 0.2 Methemoglobin Blood Gas A-a O2 368.2 H Differential Oxyhemoglobin Percent 91.5 L Blood Gas Temperature 37.0 Blood Gas Respiration Rate 18.0 Blood Gas Actual 18 Respiration Rate Blood Gas Modality VENT - AC FiO2 70.0 Blood Gas Tidal Volume 500.0 Blood Gas Low PEEP Setting 5.0 Blood Gas Critical Value SHIMNO RN Read Back Blood Gas Notified Whom TM Blood Gas Notified Time 08/05/2018 10:38:56 AM Medications Medication Current Medications Vancomycin HCl (Vanco Iv Per Pharmacy) VANCOMYCIN PER PHARMACY PER PROTOCOL XX ; Start 07/28/18 at 17:30 Cefepime HCl 50 ml @ 100 mls/hr Q12 IVPB Last administered on 08/05/18at 09:12; Admin Dose 100 MLS/HR; Start 07/28/18 at 21:00 Albuterol/ Ipratropium (Duoneb) 3 ml Q6H RESP THERAPY HHN Last administered on 08/02/18at 01:07; Admin Dose 3 ML; Start 07/28/18 at 20:00; Status Hold Apixaban (Eliquis) 5 mg BID PO Last administered on 08/04/18at 21:32; Admin Dose 5 MG; Start 07/28/18 at 21:00; Status Hold Calcium/Vitamin D (Oyster Shell/ Vit-D (500/200)) 1 tab BID PO Last administered on 08/05/18 09:10; Admin Dose 1 TAB; Start 07/28/18 at 21:00 Clonazepam (Klonopin) 0.5 mg BID PRN PO ANXIETY Last administered on 08/04/18 21:00; Admin Dose 0.5 MG; Start 07/28/18 at 21:00 Clonidine (Catapres) 0.1 mg TID PRN PO ELEVATED BLOOD PRESSURE Last administered on 07/29/18 16:54; Admin Dose 0.1 MG; Start 07/28/18 at 21:00 Hydromorphone HCl (Dilaudid) 2 mg Q4H PRN PO SEVERE PAIN LEVEL 7-10 Last administered on 08/01/18 23:34; Admin Dose 2 MG; Start 07/28/18 at 21:00 Docusate Sodium (Colace) 100 mg BID PRN PO CONSTIPATION; Start 07/28/18 at 21:00 Gabapentin (Neurontin) 200 mg BID PO Last administered on 08/05/18 09:10; Admin Dose 200 MG; Start 07/28/18 at 21:00 Metoprolol Tartrate (Lopressor) 25 mg BID PO Last administered on 08/04/18 10:05; Admin Dose 25 MG; Start 07/28/18 at 21:00 Magnesium Hydroxide (Milk Of Mag) 30 ml DAILY PRN PO CONSTIPATION; Start 07/28/18 at 21:00 Acetaminophen/ Hydrocodone Bitart ([place] (10/325)) 1 tab Q4H PRN PO MODERATE PAIN LEVEL 4-6 Last administered on 08/01/18 21:02; Admin Dose 1 TAB; Start 07/28/18 at 21:00 Carisoprodol (Soma) 350 mg BID PRN PO MUSCLE SPASMS; Start 07/28/18 at 21:00 Trazodone HCl (Desyrel) 50 mg HS PRN PO INSOMNIA Last administered on 07/29/18 20:29; Admin Dose 50 MG; Start 07/28/18 at 21:00 Ondansetron HCl (Zofran Inj) 4 mg Q6H PRN IV NAUSEA AND/OR VOMITING; Start 07/28/18 at 21:00 Methylprednisolone Sodium Succinate (Solu-Medrol) 40 mg DAILY IV Last administered on 08/05/18 09:11; Admin Dose 40 MG; Start 07/29/18 at 09:00 Ascorbic Acid (Vitamin C) 500 mg TID PO Last administered on 08/05/18 12:44; Admin Dose 500 MG; Start 07/29/18 at 09:00 Lorazepam (Ativan) 0.5 mg Q6H PRN PO ANXIETY Last administered on 08/05/18 04:06; Admin Dose 0.5 MG; Start 07/29/18 at 20:30 Guaifenesin/ Dextromethorphan (Robitussin Dm Liquid Cup) 5 ml Q4H PRN PO COUGH Last administered on 08/01/18 16:32; Admin Dose 5 ML; Start 07/29/18 at 20:30 Diltiazem HCl 125 ml @ 5 mls/hr TITRATE IV Last administered on 07/30/18 09:40; Admin Dose 5 MLS/HR; Start 07/30/18 at 09:00; Status Hold Dronedarone (Multaq) 400 mg BID WITH MEALS PO Last administered on 08/05/18 09:10; Admin Dose 400 MG; Start 07/30/18 at 09:30 Propofol 100 ml @ 1.986 mls/ hr Q12H IV Last administered on 08/05/18 06:36; Admin Dose 11.916 MLS/HR; Start 08/02/18 at 10:00 Albuterol (Ventolin Hfa) 4 puff Q6H RESP THERAPY INH Last administered on 08/05/18 14:29; Admin Dose 4 PUFF; Start 08/02/18 at 14:00 Ipratropium [place] (Atrovent Hfa) 4 puff Q6H RESP THERAPY INH Last a dministered on 08/05/18 14:29; Admin Dose 4 PUFF; Start 08/02/18 at 14:00 Fluconazole/ Sodium Chloride 50 ml @ 50 mls/hr Q24H IVPB Last administered on 08/04/18 17:30; Admin Dose 50 MLS/HR; Start 08/02/18 at 17:00 Acetaminophen (Tylenol Liquid) 650 mg Q6H PRN GTB MILD PAIN (1-3) OR TEMPERATURE; Start 08/03/18 at 09:30 Docusate Sodium (Colace Liquid Cup) 100 mg BID PRN GTB CONSTIPATION,,,,; Start 08/03/18 at 09:30 Vancomycin/Sodium Chloride 250 ml @ 125 mls/hr Q24H IVPB Last administered on 08/05/18 10:58; Admin Dose 125 MLS/HR; Start 08/04/18 at 10:00 IV Flush (NS 10 ml) 10 ml PRN PRN IV IV PROTOCOL; Start 08/03/18 at 10:30 Fentanyl 100 ml @ 2.5 mls/hr TITRATE IV Last administered on 08/05/18at 11:18; Admin Dose 10 MLS/HR; Start 08/04/18 at 09:00 Lansoprazole (Prevacid) 30 mg DAILY@06 GTB Last administered on 08/05/18 06:35; Admin Dose 30 MG; Start 08/05/18 at 06:00 Sodium Chloride 1,000 ml @ 75 mls/hr [id number] IV Last administered on 08/05/18 09:12; Admin Dose 75 MLS/HR; Start 08/05/18 at 08:00 Midazolam HCl 50 ml @ 1 mls/hr TITRATE IV Last administered on 08/05/18 11:58; Admin Dose 2 MLS/HR; Start 08/05/18 at 12:00 Norepinephrine 250 ml @ 1.875 mls/ hr TITRATE IV Last administered on 08/05/18at 13:00; Admin Dose 30 MLS/HR; Start 08/05/18 at 13:00 ANDREW SMITH NP Aug 05, 2018 16:29
[2018-08-05] MEDS: FLUCONAZOLE 100 MG/50 ML (PMX) 50 ML IVPB SCH (17:06)
--- NOTE | 2018-08-05 17:38 | PN ---
Date/Time of Note Date/Time of Note DATE: 08/05/18 TIME: 17:36 Assessment/Plan VTE Prophylaxis Risk score (from Ns)>0 risk: 17 [place] [facility] [place] Pharmacological prophylaxis: NA/contraindicated Pharm contraindication: low risk/ambulating Lines/Catheters IV [facility] Type ([facility] PICC Line Central line still needed: Yes Urinary Cath still in place: Yes Reason Cath still needed: urinary retention Assessment/Plan Hospital Course Patient was started on levo fed drip due to hypotension continues on propofol and fentanyl drip for pain patient continues on ventilatory support. Assessment/Plan - Anemia of acute blood loss secondary to nosebleed, resolved. status post blood transfusion, continue to monitor hemoglobin and hematocrit. - Acute hypoxemic respiratory failure due to healthcare-acquired pneumonia/ ARDS. Continue ventilatory support. from pulmonary standpoint. - Sepsis with gram-positive bacteremia. Continue antibiotics per ID. Dr. Brown is following in infection disease consultation. - Bilateral pulmonary fibrosis. Continue supplemental oxygen and symptomatic treatment with steroids. - Chronic obstructive pulmonary disease. Continue DuoNeb and steroids. - Nonobstructive coronary artery disease as per cardiac catheterization in 2012. Dr. Frost is following from cardiac standpoint. - Paroxysmal atrial fibrillation. Patient had an episode of atrial fibrillation with rapid ventricular response and was on Cardizem drip, currently in sinus rhythm. - Hypertension. Continue metoprolol and Lasix. p.r.n. clonidine. - Peripheral artery disease, status post stent. - Dyslipidemia. Continue Lipitor. - MARQUES, Dr. Salazar from nephrology standpoint. - Recent right hip fracture, status post surgery. - Pancreatic head mass. As per patient, she has been going to a specialist every year for followup. - Anxiety and depression, continue Klonopin and Prozac. Further recommendations based on clinical course. Plan of care discussed with Dr. Pack. Result Diagram: 08/04/18 0840 08/05/18 0510 Results 24hrs Laboratory Tests Test 08/04/18 17:46 08/05/18 05:10 08/05/18 08:44 Stool Occult Blood POSITIVE Sodium Level 146 H Potassium Level 4.0 Chloride Level 109 Carbon Dioxide Level 26 Anion Gap 11 Blood Urea Nitrogen 43 H Creatinine 0.87 Est Glomerular Filtrat Rate mL/min Glucose Level 132 Calcium Level 8.1 L Total Bilirubin 0.1 L Direct Bilirubin 0.00 Indirect Bilirubin 0.1 Aspartate Amino 63 H Transf (AST/SGOT) Alanine 76 H Aminotransferase (ALT/SGPT) Alkaline Phosphatase 91 Total Protein 4.9 L Albumin 2.4 L Globulin 2.50 Albumin/Globulin Ratio 0.96 Blood Gas Specimen Source Blood arterial Arterial Blood Date Drawn 08/05/2018 10:30:35 AM Arterial Blood pH 7.249 *L (Temp corrected) Arterial Blood pCO2 55.0 H (Temp correct) Arterial Blood pO2 71.8 L (Temp corrected) Arterial Blood HCO3 23.5 Arterial Blood Base Excess -4.0 L Arterial Blood 91.9 L Oxygen Saturation Vick Test ACCEPTAB Arterial Blood Gas Right Radial Puncture Site Arterial 0.2 Blood Carboxyhemoglobin Arterial Blood 0.2 Methemoglobin Blood Gas A-a O2 368.2 H Differential Oxyhemoglobin Percent 91.5 L Blood Gas Temperature 37.0 Blood Gas Respiration Rate 18.0 Blood Gas Actual 18 Respiration Rate Blood Gas Modality VENT - AC FiO2 70.0 Blood Gas Tidal Volume 500.0 Blood Gas Low PEEP Setting 5.0 Blood Gas Critical Value SHIMON RN Read Back Blood Gas Notified Whom TM Blood Gas Notified Time 08/05/2018 10:38:56 AM Exam/Review of Systems Exam Vitals Vital Signs Date Temp Pulse Resp B/P (MAP) Pulse Ox O2 O2 Flow FiO2 Time Delivery Rate 08/05/18 94 23 64/37 (46) 91 17:15 08/05/18 Mechanical 17:00 Ventilator 08/05/18 99.3 16:00 08/05/18 60 13:50 Intake and Output 08/04/18 08/04/18 08/05/18 1515:00 23:00 07:00 IntakeIntake Total 1170.821 ml 832.968 ml 1026.507 ml OutputOutput Total 690 ml 345 ml 320 ml BalanceBalance 480.821 ml 487.968 ml 706.507 ml Exam Constitutional: frail, other (Orally intubated) ENMT: other (OGT) Neck: supple Respiratory: diminished breath sounds Gastrointestinal: soft, non-tender Extremities: normal pulses Neurological: other (Sedated) Results Results 24hrs Laboratory Tests Test 08/04/18 17:46 08/05/18 05:10 08/05/18 08:44 Stool Occult Blood POSITIVE Sodium Level 146 H Potassium Level 4.0 Chloride Level 109 Carbon Dioxide Level 26 Anion Gap 11 Blood Urea Nitrogen 43 H Creatinine 0.87 Est Glomerular Filtrat Rate mL/min Glucose Level 132 Calcium Level 8.1 L Total Bilirubin 0.1 L Direct Bilirubin 0.00 Indirect Bilirubin 0.1 Aspartate Amino 63 H Transf (AST/SGOT) Alanine 76 H Aminotransferase (ALT/SGPT) Alkaline Phosphatase 91 Total Protein 4.9 L Albumin 2.4 L Globulin 2.50 Albumin/Globulin Ratio 0.96 Blood Gas Specimen Source Blood arterial Arterial Blood Date Drawn 08/05/2018 10:30:35 AM Arterial Blood pH 7.249 *L (Temp corrected) Arterial Blood pCO2 55.0 H (Temp correct) Arterial Blood pO2 71.8 L (Temp corrected) Arterial Blood HCO3 23.5 Arterial Blood Base Excess -4.0 L Arterial Blood 91.9 L Oxygen Saturation Vick Test ACCEPTAB Arterial Blood Gas Right Radial Puncture Site Arterial 0.2 Blood Carboxyhemoglobin Arterial Blood 0.2 Methemoglobin Blood Gas A-a O2 368.2 H Differential Oxyhemoglobin Percent 91.5 L Blood Gas Temperature 37.0 Blood Gas Respiration Rate 18.0 Blood Gas Actual 18 Respiration Rate Blood Gas Modality VENT - AC FiO2 70.0 Blood Gas Tidal Volume 500.0 Blood Gas Low PEEP Setting 5.0 Blood Gas Critical Value SHIMON GARAY Read Back Blood Gas Notified Whom TM Blood Gas Notified Time 08/05/2018 10:38:56 AM Medications Medication Current Medications Vancomycin HCl (Vanco Iv Per Pharmacy) VANCOMYCIN PER PHARMACY PER PROTOCOL XX ; Start 07/28/18 at 17:30 Cefepime HCl 50 ml @ 100 mls/hr Q12 IVPB Last administered on 08/05/18at 09:12; Admin Dose 100 MLS/HR; Start 07/28/18 at 21:00 Albuterol/ Ipratropium (Duoneb) 3 ml Q6H RESP THERAPY HHN Last administered on 08/02/18at 01:07; Admin Dose 3 ML; Start 07/28/18 at 20:00; Status Hold Apixaban (Eliquis) 5 mg BID PO Last administered on 08/04/18at 21:32; Admin Dose 5 MG; Start 07/28/18 at 21:00; Status Hold Calcium/Vitamin D (Oyster Shell/ Vit-D (500/200)) 1 tab BID PO Last administered on 08/05/18 09:10; Admin Dose 1 TAB; Start 07/28/18 at 21:00 Clonazepam (Klonopin) 0.5 mg BID PRN PO ANXIETY Last administered on 08/04/18 21:00; Admin Dose 0.5 MG; Start 07/28/18 at 21:00 Clonidine (Catapres) 0.1 mg TID PRN PO ELEVATED BLOOD PRESSURE Last administered on 07/29/18 16:54; Admin Dose 0.1 MG; Start 07/28/18 at 21:00 Hydromorphone HCl (Dilaudid) 2 mg Q4H PRN PO SEVERE PAIN LEVEL 7-10 Last administered on 08/01/18 23:34; Admin Dose 2 MG; Start 07/28/18 at 21:00 Docusate Sodium (Colace) 100 mg BID PRN PO CONSTIPATION; Start 07/28/18 at 21:00 Gabapentin (Neurontin) 200 mg BID PO Last administered on 08/05/18 09:10; Admin Dose 200 MG; Start 07/28/18 at 21:00 Metoprolol Tartrate (Lopressor) 25 mg BID PO Last administered on 08/04/18 10:05; Admin Dose 25 MG; Start 07/28/18 at 21:00 Magnesium Hydroxide (Milk Of Mag) 30 ml DAILY PRN PO CONSTIPATION; Start 07/28/18 at 21:00 Acetaminophen/ Hydrocodone Bitart ([place] (10/325)) 1 tab Q4H PRN PO MODERATE PAIN LEVEL 4-6 Last administered on 08/01/18 21:02; Admin Dose 1 TAB; Start 07/28/18 at 21:00 Carisoprodol (Soma) 350 mg BID PRN PO MUSCLE SPASMS; Start 07/28/18 at 21:00 Trazodone HCl (Desyrel) 50 mg HS PRN PO INSOMNIA Last administered on 07/29/18 20:29; Admin Dose 50 MG; Start 07/28/18 at 21:00 Ondansetron HCl (Zofran Inj) 4 mg Q6H PRN IV NAUSEA AND/OR VOMITING; Start 07/28/18 at 21:00 Methylprednisolone Sodium Succinate (Solu-Medrol) 40 mg DAILY IV Last administered on 08/05/18 09:11; Admin Dose 40 MG; Start 07/29/18 at 09:00 Ascorbic Acid (Vitamin C) 500 mg TID PO Last administered on 08/05/18 12:44; Admin Dose 500 MG; Start 07/29/18 at 09:00 Lorazepam (Ativan) 0.5 mg Q6H PRN PO ANXIETY Last administered on 08/05/18 04:06; Admin Dose 0.5 MG; Start 07/29/18 at 20:30 Guaifenesin/ Dextromethorphan (Robitussin Dm Liquid Cup) 5 ml Q4H PRN PO COUGH Last administered on 08/01/18 16:32; Admin Dose 5 ML; Start 07/29/18 at 20:30 Diltiazem HCl 125 ml @ 5 mls/hr TITRATE IV Last administered on 07/30/18 09:40; Admin Dose 5 MLS/HR; Start 07/30/18 at 09:00; Status Hold Dronedarone (Multaq) 400 mg BID WITH MEALS PO Last administered on 08/05/18 17:06; Admin Dose 400 MG; Start 07/30/18 at 09:30 Propofol 100 ml @ 1.986 mls/ hr Q12H IV Last administered on 08/05/18 06:36; Admin Dose 11.916 MLS/HR; Start 08/02/18 at 10:00 Albuterol (Ventolin Hfa) 4 puff Q6H RESP THERAPY INH Last administered on 08/05/18 14:29; Admin Dose 4 PUFF; Start 08/02/18 at 14:00 Ipratropium [place] (Atrovent Hfa) 4 puff Q6H RESP THERAPY INH Last administered on 08/05/18 14:29; Admin Dose 4 PUFF; Start 08/02/18 at 14:00 Fluconazole/ Sodium Chloride 50 ml @ 50 mls/hr Q24H IVPB Last administered on 08/05/18 17:06; Admin Dose 50 MLS/HR; Start 08/02/18 at 17:00 Acetaminophen (Tylenol Liquid) 650 mg Q6H PRN GTB MILD PAIN (1-3) OR TEMPERATUR E; Start 08/03/18 at 09:30 Docusate Sodium (Colace Liquid Cup) 100 mg BID PRN GTB CONSTIPATION,,,,; Start 08/03/18 at 09:30 Vancomycin/Sodium Chloride 250 ml @ 125 mls/hr Q24H IVPB Last administered on 08/05/18at 10:58; Admin Dose 125 MLS/HR; Start 08/04/18 at 10:00 IV Flush (NS 10 ml) 10 ml PRN PRN IV IV PROTOCOL; Start 08/03/18 at 10:30 Fentanyl 100 ml @ 2.5 mls/hr TITRATE IV Last administered on 08/05/18at 11:18; Admin Dose 10 MLS/HR; Start 08/04/18 at 09:00 Lansoprazole (Prevacid) 30 mg DAILY@06 GTB Last administered on 08/05/18at 06:35; Admin Dose 30 MG; Start 08/05/18 at 06:00 Sodium Chloride 1,000 ml @ 75 mls/hr [id number] IV Last administered on 08/05/18 09:12; Admin Dose 75 MLS/HR; Start 08/05/18 at 08:00 Midazolam HCl 50 ml @ 1 mls/hr TITRATE IV Last administered on 08/05/18at 11:58; Admin Dose 2 MLS/HR; Start 08/05/18 at 12:00 Norepinephrine 250 ml @ 1.875 mls/ hr TITRATE IV Last administered on 08/05/18at 13:00; Admin Dose 30 MLS/HR; Start 08/05/18 at 13:00 RAMÓN VILLALOBOS Aug 05, 2018 17:38
[2018-08-06] VITALS (101 sets, daily range): BP systolic 87–122; BP diastolic 36–57; PULSE 61–129; RESP 16–31
[2018-08-06] MEDS: ALBUTEROL HFA 8 GM INHALER INH SCH ×4 (01:03→20:24)
[2018-08-06] MEDS: IPRATROPIUM (HFA) 12.9 GM INHALER INH SCH ×4 (01:03→20:24)
[2018-08-06] MEDS: MIDAZOLAM (DRIP) 50 mg/50 mL 50 ML IV SCH ×4 (02:14→21:48)
[2018-08-06] MEDS: SOD CHLORIDE 0.9% 1,000 ML IV SCH (04:40)
[2018-08-06] MEDS: LANSOPRAZOLE 30 MG CAP GTB SCH (05:39)
--- NOTE | 2018-08-06 07:23 | CONS ---
Consult Date/Type/Reason Admit Date/Time Jul 28, 2018 at 18:16 Initial Consult Date 07/28/18 Type of Consultation: cv Requesting Provider: ABDIAS STAPLES MD Date/Time of Note DATE: 08/06/18 TIME: 07:17 Subjective Cardiology follow-up progress note Subjective: Discussed with the staff and Telemetry was reviewed. Patient REMAINS INTUBATED on vent in ICU he remains in NSR/SINUS TACHY. No episode of atrial fibrillation Mild tracheal bleeding is noted pt with hyotension over night and on levophed now . Patient has been more confused and lethargic apparently and unresponsive Objective: General: Elderly female INTUBATED on vent . HEENT: NC/AT. pupils are equal. round. NECK: + JVD. no stridor. CV regular rate and rhythm systolic murmur; no gallop or rubs. PULM: + wheezing + rhonchi. GI: SOFT, NT, ND, no rebound or guarding Extremity: No significant LE edema. no clubbing. neuro: intubated on vent Psych: calm rectal: deferred : Deferred EKG was personally within normal sinus rhythm with no evidence of ischemia CT pulmonary angiogram done in the emergency room shows: 1. Moderate pulmonary fibrosis, worse at the bilateral lung apices. Associated mediastinal adenopathy. Underlying mass not entirely excluded. Further evaluati on with PET-CT may be obtained. 2. Small right multiloculated pleural effusion. Moderate left layering pleural effusion. 3. Streaky bibasilar opacities compatible with atelectasis or pneumonia. 4. Dilated pulmonary trunk and bilateral pulmonary arteries compatible with sequelae of pulmonary hypertension. 5. Left renal 4 cm hyperdense cyst or mass. Further evaluation with multiphase contrast enhanced CT or MR may be obtained. Echocardiogram was personally reviewed which shows: Normal left ventricular systolic function. Normal left ventricular cavity size. Mild concentric left ventricular hypertrophy. Ejection fraction is visually estimated at 55 %. There is mild enlargement of left atrium. Normal appearance of the mitral valve. Mild mitral valve regurgitation. Aortic sclerosis without significant stenosis. Aortic cusps appear mildly calcified. Trileaflet aortic valve. Trace aortic valve regurgitation. Normal appearance of the tricuspid valve. Estimated peak PA systolic pressure 71 mmHg. There is mild tricuspid regurgitation. Normal size and normal respiratory collapse consistent with normal right atrial pressure. CXR 08/05 Again seen are diffuse coarse interstitial infiltrates with superimposed ground-glass densities, slightly more confluent within the perihilar regions and right lower lobe. The osseous structures are unremarkable. Objective Vitals Vital Signs Date Temp Pulse Resp B/P (MAP) Pulse Ox O2 O2 Flow FiO2 Time Delivery Rate 08/06/18 92 20 108/36 99 Mechanical 06:00 (60) Ventilator 08/06/18 80 04:50 08/06/18 99.0 04:00 Intake and Output 08/05/18 08/05/18 08/06/18 1515:00 23:00 07:00 IntakeIntake Total 1814.85 ml 1686.375 ml 1126.25 ml OutputOutput Total 410 ml 405 ml 300 ml BalanceBalance 1404.85 ml 1281.375 ml 826.25 ml Results/Medications Result Diagram: 08/06/18 0400 08/06/18 0400 Results 24 hrs Laboratory Tests Test 08/05/18 08:44 08/06/18 04:00 08/06/18 05:00 Blood Gas Specimen Blood arterial Blood arterial Source Arterial Blood Date 08/05/2018 10:30:35 08/06/2018 4:55:29 AM Drawn AM Arterial Blood pH 7.249 *L 7.228 *L (Temp corrected) Arterial Blood pCO2 55.0 H 70.7 H (Temp correct) Arterial Blood pO2 71.8 L 89.8 (Temp corrected) Arterial Blood HCO3 23.5 28.8 H Arterial Blood Base -4.0 L 0.4 Excess Arterial Blood 91.9 L 95.8 Oxygen Saturation Vick Test ACCEPTAB ACCEPTAB Arterial Blood Gas Right Radial Right Radial Puncture Site Arterial 0.2 0.3 Blood Carboxyhemoglob in Arterial Blood 0.2 0.1 Methemoglobin Blood Gas A-a O2 368.2 H 406.4 H Differential Oxyhemoglobin Percent 91.5 L 95.4 Blood Gas Temperature 37.0 37.0 Blood Gas Respiration 18.0 18.0 Rate Blood Gas Actual 18 18 Respiration Rate Blood Gas Modality VENT - AC VENT - AC FiO2 70.0 80.0 Blood Gas Tidal 500.0 500.0 Volume Blood Gas Low PEEP 5.0 5.0 Setting Blood Gas Critical SHIMON ontiveros rn Value Read Back Blood Gas Notified CORNELIUS dhillon rcp Whom Blood Gas Notified 08/05/2018 10:38:56 08/06/2018 5:04:12 AM Time AM White Blood Count 16.3 #H Red Blood Count 2.61 L Hemoglobin 8.1 L Hematocrit 27.7 L Mean Corpuscular 106.1 H Volume Mean Corpuscular 31.0 Hemoglobin Mean Corpuscular 29.2 L Hemoglobin Concent Red Cell Distribution 19.8 H Width Platelet Count 58 #L Mean Platelet Volume 12.4 H Immature Granulocytes 1.000 H % Neutrophils % Lymphocytes % Monocytes % Eosinophils % Basophils % Nucleated Red Blood 0.0 Cells % Immature Granulocytes 0.170 H # Neutrophils # Lymphocytes # Monocytes # Eosinophils # Basophils # Nucleated Red Blood Cells # Sodium Level 147 H Potassium Level 4.3 Chloride Level 112 H Carbon Dioxide Level 29 Anion Gap 6 Blood Urea Nitrogen 49 H Creatinine 1.06 H Est Glomerular Filtrat Rate mL/min Glucose Level 140 Calcium Level 7.9 L Phosphorus Level 2.9 Magnesium Level 2.2 Total Bilirubin 0.0 L Direct Bilirubin 0.00 Indirect Bilirubin 0.0 Aspartate Amino 48 H Transf (AST/SGOT) Alanine 50 Aminotransferase (ALT /SGPT) Alkaline Phosphatase 114 Total Protein 4.9 L Albumin 2.4 L Globulin 2.50 Albumin/Globulin 0.96 Ratio Blood Gas Inspiratory 36.0 Pressure Home Meds Reported Medications Ondansetron Hcl* (Zofran*) 8 Mg Tablet, 8 MG PO Q6H PRN for NAUSEA AND OR VOMITING, TAB 07/28/18 Guaifenesin (Xpect) 400 Mg Tablet, 400 MG PO Q12, TAB 07/28/18 Acetaminophen* (Acetaminophen*) 650 Mg Tablet, 650 MG PO Q6H PRN for PAIN AND OR ELEVATED TEMP, #30 TAB 07/28/18 Trazodone Hcl* (Trazodone Hcl*) 50 Mg Tablet, 50 MG PO QHS, #30 TAB 07/28/18 Carisoprodol* (Carisoprodol*) 350 Mg Tablet, 350 MG PO BID PRN for MUSCLE SPASMS, TAB 07/28/18 Montelukast Sodium* (Singulair*) 10 Mg Tablet, 10 MG PO QHS, #30 TAB 07/28/18 Sennosides* (Senna Lax*) 8.6 Mg Tablet, 2 TAB PO QHS, TAB 07/28/18 Fluoxetine Hcl* (Prozac*) 20 Mg Capsule, 20 MG PO DAILY, CAP 07/28/18 Promethazine Hcl* (Phenergan* Liq) 6.25 Mg/5 Ml Syrup, 12.5 MG PO Q6H PRN for COUGH, ML 07/28/18 Lansoprazole* (Lansoprazole*) 30 Mg Capsule.dr, 30 MG PO DAILY, CAP 07/28/18 Vit C/E/Zn/Coppr/Lutein/Zeaxan (Preservision Areds 2 Softgel) 1 Each Capsule, 2 EACH PO DAILY, CAP 07/28/18 Prednisone* (Prednisone*) 20 Mg Tab, 40 MG PO DAILY, TAB 07/28/18 Chlorhexidine Gluconate (Peridex) 473 Ml Mouthwash, 15 ML MM BID, BOTTLE 07/28/18 [place]-3 Acid Ethyl Esters (Lovaza) 1 Gm Capsule, 2 GM PO DAILY, CAP 07/28/18 Hydrocodone/Acetaminophen ([place] 10-325 Tablet) 1 Each Tablet, 1 EACH PO Q4 PRN for SEVERE PAIN LEVEL 7-10, TAB 07/28/18 Multivitamins* (Theragran*) 1 Tab Tab, 1 TAB PO DAILY, TAB 07/28/18 Guaifenesin (Guaifenesin) 600 Mg Tablet.sa, 600 MG PO BID, TAB 07/28/18 Magnesium Hydroxide* (Milk Of Magnesia*) 400 Mg/5 Ml Oral.susp, 30 ML PO DAILY PRN for CHEST PAIN, ML 07/28/18 Metoprolol Tartrate* (Lopressor*) 50 Mg Tab, 50 MG PO DAILY, #60 TAB HOLD FOR SBP<110 OR HR<60 07/28/18 Atorvastatin Calcium (Atorvastatin Calcium) 10 Mg Tablet, 10 MG PO QHS, #30 TAB 07/28/18 Lidocaine (Lidocaine) 5 Gm Cream..g., 5 GM TP DAILY 07/28/18 Furosemide* (Lasix*) 20 Mg Tablet, 20 MG PO DAILY, TAB 07/28/18 Lactobacillus Rhamnosus* (Culturelle*) 1 Each Cap.sprink, 1 CAP PO DAILY, CAP 07/28/18 Ipratropium-Albuterol (Ipratropium-Albuterol) 0.5-3 Mg/3 Ml Ampul.neb, 3 ML INHALATION Q4 PRN for SHORTNESS OF BREATH, #30 VIAL 07/28/18 Gabapentin* (Gabapentin*) 100 Mg Capsule, 200 MG PO BID, #180 CAP 07/28/18 Folic Acid* (Folic Acid*) 1 Mg Tablet, 1 MG PO DAILY, TAB 07/28/18 Ferrous Sulfate* (Ferrous Sulfate*) 325 Mg Tabec, 325 MG PO TID, TAB 07/28/18 Estrogens Conjugated* (Premarin*) 0.45 Mg Tablet, 0.45 MG PO DAILY, TAB 07/28/18 Bisacodyl (Dulcolax) 10 Mg Supp.rect, 10 MG RC Q48, SUPP.RECT 07/28/18 Docusate Sodium* (Colace*) 100 Mg Capsule, 100 MG PO QHS PRN for CONSTIPATION, #60 CAP 07/28/18 Hydromorphone Hcl* (Dilaudid*) 2 Mg Tablet, 2 MG PO Q6H PRN for SEVERE PAIN LEVEL 7-10, TAB 07/28/18 Cyanocobalamin* (Vitamin B12*) 500 Mcg Tab, 500 MCG PO DAILY, TAB 07/28/18 Clonidine Hcl* (Clonidine Hcl*) 0.1 Mg Tab, 0.1 MG PO Q8, TAB 07/28/18 Clonazepam* (Clonazepam*) 0.5 Mg Tablet, 0.5 MG PO BID PRN for ANXIETY, TAB 07/28/18 Calcium Carbonate/Vitamin D3 ([place] 500+D Tablet) 1 Each Tablet, 1 EACH PO BID, TAB 07/28/18 Fluticasone/Vilanterol (Breo Ellipta 200-25 Mcg INH) 1 Each Blst.w.dev, 1 PUFF INHALATION DAILY, #1 INHALER 07/28/18 Lorazepam* (Lorazepam*) 0.5 Mg Tablet, 0.5 MG PO Q6 PRN for ANXIETY, TAB 07/28/18 Diphenhydramine Hcl* (Benadryl*) 25 Mg Cap, 25 MG PO Q8 PRN for PRN, CAP 07/28/18 Aspirin* (Aspirin* Chew) 81 Mg Tab.chew, 81 MG PO DAILY, TAB.CHEW 07/28/18 Ascorbic Acid* (Vitamin C*) 500 Mg Capsule.sa, 500 MG PO TID, CAP 07/28/18 Apixaban* (Eliquis*) 5 Mg Tablet, 5 MG PO BID, TAB 07/28/18 Hydrocortisone Acetate (Anusol-Hc) 25 Mg Supp.rect, 25 MG CO BID PRN for CONSTIPATION, SUPP.RECT 07/28/18 Amiodarone Hcl* (Amiodarone Hcl*) 200 Mg Tablet, 200 MG PO BID, #30 TAB HOLD FOR SBP<110 OR HR<60 07/28/18 Medications Current Medications Vancomycin HCl (Vanco Iv Per Pharmacy) VANCOMYCIN PER PHARMACY PER PROTOCOL XX ; Start 07/28/18 at 17:30 Cefepime HCl 50 ml @ 100 mls/hr Q12 IVPB Last administered on 08/05/18at 20:56; Admin Dose 100 MLS/HR; Start 07/28/18 at 21:00 Albuterol/ Ipratropium (Duoneb) 3 ml Q6H RESP THERAPY HHN Last administered on 08/02/18 01:07; Admin Dose 3 ML; Start 07/28/18 at 20:00; Status Hold Apixaban (Eliquis) 5 mg BID PO Last administered on 08/04/18at 21:32; Admin Dose 5 MG; Start 07/28/18 at 21:00; Status Hold Calcium/Vitamin D ([place]/ Vit-D (500/200)) 1 tab BID PO Last administered on 08/05/18 20:57; Admin Dose 1 TAB; Start 07/28/18 at 21:00 Clonazepam (Klonopin) 0.5 mg BID PRN PO ANXIETY Last administered on 08/04/18 21:00; Admin Dose 0.5 MG; Start 07/28/18 at 21:00 Clonidine (Catapres) 0.1 mg TID PRN PO ELEVATED BLOOD PRESSURE Last administered on 07/29/18 16:54; Admin Dose 0.1 MG; Start 07/28/18 at 21:00 Hydromorphone HCl (Dilaudid) 2 mg Q4H PRN PO SEVERE PAIN LEVEL 7-10 Last administered on 08/01/18 23:34; Admin Dose 2 MG; Start 07/28/18 at 21:00 Docusate Sodium (Colace) 100 mg BID PRN PO CONSTIPATION; Start 07/28/18 at 21:00 Gabapentin (Neurontin) 200 mg BID PO Last administered on 08/05/18 20:57; Admin Dose 200 MG; Start 07/28/18 at 21:00 Metoprolol Tartrate (Lopressor) 25 mg BID PO Last administered on 08/04/18 10:05; Admin Dose 25 MG; Start 07/28/18 at 21:00 Magnesium Hydroxide (Milk Of Mag) 30 ml DAILY PRN PO CONSTIPATION; Start 07/28/18 at 21:00 Acetaminophen/ Hydrocodone Bitart ([place] (10/325)) 1 tab Q4H PRN PO MODERATE PAIN LEVEL 4-6 Last administered on 08/01/18 21:02; Admin Dose 1 TAB; Start 07/28/18 at 21:00 Carisoprodol (Soma) 350 mg BID PRN PO MUSCLE SPASMS; Start 07/28/18 at 21:00 Trazodone HCl (Desyrel) 50 mg HS PRN PO INSOMNIA Last administered on 07/29/18 20:29; Admin Dose 50 MG; Start 07/28/18 at 21:00 Ondansetron HCl (Zofran Inj) 4 mg Q6H PRN IV NAUSEA AND/OR VOMITING; Start 07/28/18 at 21:00 Methylprednisolone Sodium Succinate (Solu-Medrol) 40 mg DAILY IV Last administered on 08/05/18 09:11; Admin Dose 40 MG; Start 07/29/18 at 09:00 Ascorbic Acid (Vitamin C) 500 mg TID PO Last administered on 08/05/18 20:57; Admin Dose 500 MG; Start 07/29/18 at 09:00 Lorazepam (Ativan) 0.5 mg Q6H PRN PO ANXIETY Last administered on 08/05/18 04:06; Admin Dose 0.5 MG; Start 07/29/18 at 20:30 Guaifenesin/ Dextromethorphan (Robitussin Dm Liquid Cup) 5 ml Q4H PRN PO COUGH Last administered on 08/01/18 16:32; Admin Dose 5 ML; Start 07/29/18 at 20:30 Diltiazem HCl 125 ml @ 5 mls/hr TITRATE IV Last administered on 07/30/18 09:40; Admin Dose 5 MLS/HR; Start 07/30/18 at 09:00; Status Hold Dronedarone (Multaq) 400 mg BID WITH MEALS PO Last administered on 08/05/18 17:06; Admin Dose 400 MG; Start 07/30/18 at 09:30 Propofol 100 ml @ 1.986 mls/ hr Q12H IV Last administered on 08/05/18 06:36; Admin Dose 11.916 MLS/HR; Start 08/02/18 at 10:00 Albuterol (Ventolin Hfa) 4 puff Q6H RESP THERAPY INH Last administered on 08/06/18 01:03; Admin Dose 4 PUFF; Start 08/02/18 at 14:00 Ipratropium [place] (Atrovent Hfa) 4 puff Q6H RESP THERAPY INH Last administered on 08/06/18 01:03; Admin Dose 4 PUFF; Start 08/02/18 at 14:00 Fluconazole/ Sodium Chloride 50 ml @ 50 mls/hr Q24H IVPB Last administered on 08/05/18 17:06; Admin Dose 50 MLS/HR; Start 08/02/18 at 17:00 Acetaminophen (Tylenol Liquid) 650 mg Q6H PRN GTB MILD PAIN (1-3) OR TEMPERAT URE; Start 08/03/18 at 09:30 Docusate Sodium (Colace Liquid Cup) 100 mg BID PRN GTB CONSTIPATION,,,,; Start 08/03/18 at 09:30 Vancomycin/Sodium Chloride 250 ml @ 125 mls/hr Q24H IVPB Last administered on 08/05/18 10:58; Admin Dose 125 MLS/HR; Start 08/04/18 at 10:00 IV Flush (NS 10 ml) 10 ml PRN PRN IV IV PROTOCOL; Start 08/03/18 at 10:30 Fentanyl 100 ml @ 2.5 mls/hr TITRATE IV Last administered on 08/05/18 22:14; Admin Dose 10 MLS/HR; Start 08/04/18 at 09:00 Lansoprazole (Prevacid) 30 mg DAILY@06 GTB Last administered on 08/06/18 05:39; Admin Dose 30 MG; Start 08/05/18 at 06:00 Sodium Chloride 1,000 ml @ 75 mls/hr [id number] IV Last administered on 08/06/18 04:40; Admin Dose 75 MLS/HR; Start 08/05/18 at 08:00 Midazolam HCl 50 ml @ 1 mls/hr TITRATE IV Last administered on 08/06/18at 02:14; Admin Dose 5 MLS/HR; Start 08/05/18 at 12:00 Norepinephrine 250 ml @ 1.875 mls/ hr TITRATE IV Last administered on 08/05/18at 13:00; Admin Dose 30 MLS/HR; Start 08/05/18 at 13:00 Assessment/Plan Hospital Course (Demo Recall) 1. Hypoxemic respiratory failure 2. Pulmonary fibrosis/severe COPD 3. Elevated BNP most likely secondary to above and significant pulmonary hypertension 4. paroxysmal atrial fibrillation; currently converted back to normal sinus rhythm 5. Encephalopathy 6. Most likely pneumonia 7. History of recent fall and hip fracture status post surgery 8. Anemia 9. Lactic acidosis 10. Hypertension 11. Pulmonary hypertension 12.shock. sepsis 13. Acute encephalopathy has a letter of consciousness 14. Thrombocytopenia Recommendations: We will discontinue Eliquis given her OB positive stool as well as thrombocytopenia and worsening anemia Continue with vent support. Antibiotic management as per internal medicine We will continue to monitor on telemetry Correct electrolytes as needed Transfusions as needed I have stopped amiodarone given concern about her severe pulmonary disease and pulmonary fibrosis. pt was started on Multaq . Cardizem IV as well as digoxin to control the heart rate better on as-needed basis. TSH is within normal limits Given her pulmonary hypertension and was started on Revatio but she is too hypotensive to tolerate and has been stopped now. Continue with vent support. I will order a CT of the head to be taken once patient is stable to go there. Currently appears to be too unstable to do so Thank you for his referral. We will continue to follow along with you DAYRON ROGERS MD [facility] DAYRON ROGERS MD Aug 06, 2018 07:23
--- NOTE | 2018-08-06 08:08 | CONS ---
Assessment/Plan Assessment/Plan Assessment/Plan (Daily) Chest x-ray showing diffuse bilateral infiltrates with ARDS pattern. Ventilator setting; AC of 22, tidal volume 500, PEEP of 5, 80% FiO2. Patient is currently on Levophed at 4 mics per minute, fentanyl 100 mics per hour, Versed 5 mg/h. ABG showing severe hypercapnia, ventilator settings were adjusted after that. Rate increased to 22. Assessment recommendations; 1. Patient admitted with severe bilateral community-acquired pneumonia with ARDS requiring intubation. Patient exhibiting persistent hypoxemia and hypercapnia. 2. History of prior tracheostomy with decannulation. 3. History of pancreatic mass, apparently nonmalignant. 4. History of neuropathy. 5. Hypertension. 6. Pulmonary hypertension. 7. Patient exhibiting mild hypotension, requiring pressor support. 8. Anemia and severe thrombocytopenia. 9. Coagulase negative bacteremia with most recent blood cultures been negative. Continue current supportive care. Ventilator settings were adjusted early this morning. Add Levaquin 5 mg IV daily. Decrease normal saline to 25 mL/h. Patient is getting mildly edematous. Prognosis appears poor. 35 minutes of critical care time was spent evaluating the patient. Consultation Date/Type/Reason Admit Date/Time Jul 28, 2018 at 18:16 Initial Consult Date 07/28/18 Type of Consult Pulmonary Requesting Provider: ABDIAS STAPLES MD Date/Time of Note DATE: 08/06/18 TIME: 08:05 24 HR Interval Summary Free Text/Dictation Patient's condition remains critical. Requiring high FiO2 for O2 saturation maintenance. Patient has remained hemodynamically unstable, requiring low-dose Levophed. General exam; elderly female, orally intubated, sedated, currently in no distress. Exam/Review of Systems Exam Vitals Vital Signs Date Temp Pulse Resp B/P (MAP) Pulse Ox O2 O2 Flow FiO2 Time Delivery Rate 08/06/18 92 20 108/36 99 Mechanical 06:00 (60) Ventilator 08/06/18 80 04:50 08/06/18 99.0 04:00 Intake and Output 08/05/18 08/05/18 08/06/18 1515:00 23:00 07:00 IntakeIntake Total 1814.85 ml 1686.375 ml 1126.25 ml OutputOutput Total 410 ml 405 ml 300 ml BalanceBalance 1404.85 ml 1281.375 ml 826.25 ml Exam HEENT exam; supple neck, no JVD. No lymphadenopathy. Midline trachea. No thyromegaly. Orally intubated. Patient is edentulous. There is a well-healed tracheostomy scar. No neck masses. Chest exam; bilateral crackles. S1-S2 audible, no murmurs. Tachycardic. Regular rhythm. Abdomen exam; soft, scaphoid. No organomegaly. Bowel sounds audible. There is a well-healed epigastric scar. Extremity exam; no peripheral edema. Patient does have multiple ecchymosis. There is upper extremity edema bilaterally. [employer]ER exam; patient is sedated. Results Result Diagram: 08/06/18 0400 08/06/18 0400 Results 24hrs Laboratory Tests Test 08/05/18 08:44 08/06/18 04:00 08/06/18 05:00 Blood Gas Specimen Blood arterial Blood arterial Source Arterial Blood Date 08/05/2018 10:30:35 08/06/2018 4:55:29 AM Drawn AM Arterial Blood pH 7.249 *L 7.228 *L (Temp corrected) Arterial Blood pCO2 55.0 H 70.7 H (Temp correct) Arterial Blood pO2 71.8 L 89.8 (Temp corrected) Arterial Blood HCO3 23.5 28.8 H Arterial Blood Base -4.0 L 0.4 Excess Arterial Blood 91.9 L 95.8 Oxygen Saturation Vick Test ACCEPTAB ACCEPTAB Arterial Blood Gas Right Radial Right Radial Puncture Site Arterial 0.2 0.3 Blood Carboxyhemoglob in Arterial Blood 0.2 0.1 Methemoglobin Blood Gas A-a O2 368.2 H 406.4 H Differential Oxyhemoglobin Percent 91.5 L 95.4 Blood Gas Temperature 37.0 37.0 Blood Gas Respiration 18.0 18.0 Rate Blood Gas Actual 18 18 Respiration Rate Blood Gas Modality VENT - AC VENT - AC FiO2 70.0 80.0 Blood Gas Tidal 500.0 500.0 Volume Blood Gas Low PEEP 5.0 5.0 Setting Blood Gas Critical SHIMON ontiveros rn Value Read Back Blood Gas Notified CORNELIUS dhillon rcp Whom Blood Gas Notified 08/05/2018 10:38:56 08/06/2018 5:04:12 AM Time AM White Blood Count 16.3 #H Red Blood Count 2.61 L Hemoglobin 8.1 L Hematocrit 27.7 L Mean Corpuscular 106.1 H Volume Mean Corpuscular 31.0 Hemoglobin Mean Corpuscular 29.2 L Hemoglobin Concent Red Cell Distribution 19.8 H Width Platelet Count 58 #L Mean Platelet Volume 12.4 H Immature Granulocytes 1.000 H % Neutrophils % Lymphocytes % Monocytes % Eosinophils % Basophils % Nucleated Red Blood 0.0 Cells % Immature Granulocytes 0.170 H # Neutrophils # Lymphocytes # Monocytes # Eosinophils # Basophils # Nucleated Red Blood Cells # Sodium Level 147 H Potassium Level 4.3 Chloride Level 112 H Carbon Dioxide Level 29 Anion Gap 6 Blood Urea Nitrogen 49 H Creatinine 1.06 H Est Glomerular Filtrat Rate mL/min Glucose Level 140 Calcium Level 7.9 L Phosphorus Level 2.9 Magnesium Level 2.2 Total Bilirubin 0.0 L Direct Bilirubin 0.00 Indirect Bilirubin 0.0 Aspartate Amino 48 H Transf (AST/SGOT) Alanine 50 Aminotransferase (ALT /SGPT) Alkaline Phosphatase 114 Total Protein 4.9 L Albumin 2.4 L Globulin 2.50 Albumin/Globulin 0.96 Ratio Blood Gas Inspiratory 36.0 Pressure Medications Medication Current Medications Vancomycin HCl (Vanco Iv Per Pharmacy) VANCOMYCIN PER PHARMACY PER PROTOCOL XX ; Start 07/28/18 at 17:30 Cefepime HCl 50 ml @ 100 mls/hr Q12 IVPB Last administered on 08/05/18at 20:56; Admin Dose 100 MLS/HR; Start 07/28/18 at 21:00 Albuterol/ Ipratropium (Duoneb) 3 ml Q6H RESP THERAPY HHN Last administered on 08/02/18at 01:07; Admin Dose 3 ML; Start 07/28/18 at 20:00; Status Hold Calcium/Vitamin D (Oyster Shell/ Vit-D (500/200)) 1 tab BID PO Last administered on 08/05/18at 20:57; Admin Dose 1 TAB; Start 07/28/18 at 21:00 Clonazepam (Klonopin) 0.5 mg BID PRN PO ANXIETY Last administered on 08/04/18at 21:00; Admin Dose 0.5 MG; Start 07/28/18 at 21:00 Clonidine (Catapres) 0.1 mg TID PRN PO ELEVATED BLOOD PRESSURE Last administered on 07/29/18at 16:54; Admin Dose 0.1 MG; Start 07/28/18 at 21:00 Hydromorphone HCl (Dilaudid) 2 mg Q4H PRN PO SEVERE PAIN LEVEL 7-10 Last administered on 08/01/18 23:34; Admin Dose 2 MG; Start 07/28/18 at 21:00 Docusate Sodium (Colace) 100 mg BID PRN PO CONSTIPATION; Start 07/28/18 at 21:00 Gabapentin (Neurontin) 200 mg BID PO Last administered on 08/05/18 20:57; Admin Dose 200 MG; Start 07/28/18 at 21:00 Metoprolol Tartrate (Lopressor) 25 mg BID PO Last administered on 08/04/18 10:05; Admin Dose 25 MG; Start 07/28/18 at 21:00 Magnesium Hydroxide (Milk Of Mag) 30 ml DAILY PRN PO CONSTIPATION; Start 07/28/18 at 21:00 Acetaminophen/ Hydrocodone Bitart ([place] (10325)) 1 tab Q4H PRN PO MODERATE PAIN LEVEL 4-6 Last administered on 08/01/18 21:02; Admin Dose 1 TAB; Start 07/28/18 at 21:00 Carisoprodol (Soma) 350 mg BID PRN PO MUSCLE SPASMS; Start 07/28/18 at 21:00 Trazodone HCl (Desyrel) 50 mg HS PRN PO INSOMNIA Last administered on 07/29/18 20:29; Admin Dose 50 MG; Start 07/28/18 at 21:00 Ondansetron HCl (Zofran Inj) 4 mg Q6H PRN IV NAUSEA AND/OR VOMITING; Start 07/28/18 at 21:00 Methylprednisolone Sodium Succinate (Solu-Medrol) 40 mg DAILY IV Last administered on 08/05/18 09:11; Admin Dose 40 MG; Start 07/29/18 at 09:00 Ascorbic Acid (Vitamin C) 500 mg TID PO Last administered on 08/05/18 20:57; Admin Dose 500 MG; Start 07/29/18 at 09:00 Lorazepam (Ativan) 0.5 mg Q6H PRN PO ANXIETY Last administered on 08/05/18 04:06; Admin Dose 0.5 MG; Start 07/29/18 at 20:30 Guaifenesin/ Dextromethorphan (Robitussin Dm Liquid Cup) 5 ml Q4H PRN PO COUGH Last administered on 08/01/18 16:32; Admin Dose 5 ML; Start 07/29/18 at 20:30 Diltiazem HCl 125 ml @ 5 mls/hr TITRATE IV Last administered on 07/30/18 09:40; Admin Dose 5 MLS/HR; Start 07/30/18 at 09:00; Status Hold Dronedarone (Multaq) 400 mg BID WITH MEALS PO Last administered on 08/05/18 17:06; Admin Dose 400 MG; Start 07/30/18 at 09:30 Propofol 100 ml @ 1.986 mls/ hr Q12H IV Last administered on 08/05/18 06:36; Admin Dose 11.916 MLS/HR; Start 08/02/18 at 10:00 Albuterol (Ventolin Hfa) 4 puff Q6H RESP THERAPY INH Last administered on 08/06/18 01:03; Admin Dose 4 PUFF; Start 08/02/18 at 14:00 Ipratropium [place] (Atrovent Hfa) 4 puff Q6H RESP THERAPY INH Last administered on 08/06/18 01:03; Admin Dose 4 PUFF; Start 08/02/18 at 14:00 Fluconazole/ Sodium Chloride 50 ml @ 50 mls/hr Q24H IVPB Last administered on 08/05/18 17:06; Admin Dose 50 MLS/HR; Start 08/02/18 at 17:00 Acetaminophen (Tylenol Liquid) 650 mg Q6H PRN GTB MILD PAIN (1-3) OR TEMPERATURE; Start 08/03/18 at 09:30 Docusate Sodium (Colace Liquid Cup) 100 mg BID PRN GTB CONSTIPATION,,,,; Start 08/03/18 at 09:30 Vancomycin/Sodium Chloride 250 ml @ 125 mls/hr Q24H IVPB Last administered on 08/05/18 10:58; Admin Dose 125 MLS/HR; Start 08/04/18 at 10:00 IV Flush (NS 10 ml) 10 ml PRN PRN IV IV PROTOCOL; Start 08/03/18 at 10:30 Fentanyl 100 ml @ 2.5 mls/hr TITRATE IV Last administered on 08/05/18 22:14; Admin Dose 10 MLS/HR; Start 08/04/18 at 09:00 Lansoprazole (Prevacid) 30 mg DAILY@06 GTB Last administered on 08/06/18at 05:39; Admin Dose 30 MG; Start 08/05/18 at 06:00 Midazolam HCl 50 ml @ 1 mls/hr TITRATE IV Last administered on 08/06/18at 02:14; Admin Dose 5 MLS/HR; Start 08/05/18 at 12:00 Norepinephrine 250 ml @ 1.875 mls/ hr TITRATE IV Last administered on 08/05/18at 13:00; Admin Dose 30 MLS/HR; Start 08/05/18 at 13:00 Sodium Chloride 1,000 ml @ 50 mls/hr Q20H IV ; Start 08/06/18 at 08:00 DEJUAN OSULLIVAN Aug 06, 2018 08:08
[2018-08-06] MEDS: SOD CHLORIDE 0.45% 1,000 ML IV SCH (08:11)
[2018-08-06] MEDS: CEFEPIME 1GM/50 ML (PMX) 50 ML IVPB SCH (08:11)
[2018-08-06] MEDS: GABAPENTIN 100 MG CAP PO SCH ×2 (08:14→20:35)
[2018-08-06] MEDS: METOPROLOL 25 MG TAB PO SCH ×2 (08:14→20:34)
[2018-08-06] MEDS: CALCIUM/VITAMIN D (500/200) TAB PO SCH ×2 (08:14→20:35)
[2018-08-06] MEDS: METHYLPREDNISOLONE 40 MG INJ IV SCH (08:14)
[2018-08-06] MEDS: DRONEDARONE HYDROCHLORIDE 400 MG TAB PO SCH ×2 (08:14→16:36)
[2018-08-06] MEDS: ASCORBIC ACID 500 MG TAB PO SCH ×3 (08:14→20:35)
--- NOTE | 2018-08-06 08:25 | PN ---
DATE: 08/06/2018 SUBJECTIVE: The patient is in critical condition on FIO2 of 80%. No other acute events noted. No h emoptysis, hematemesis or hematochezia. OBJECTIVE: VITAL SIGNS: Blood pressure is 108/36, respirations 20, pulse 92. I's AND O'S: The patient had 1.6 liters in, 1 liter out. HEENT: Head is normocephalic. NECK: Supple. HEART: Regular rate. LUNGS: Show diminished breath sounds at the base. ABDOMEN: Soft, nontender to palpation without rebound or guarding. EXTREMITIES: Negative for clubbing, cyanosis. Positive edema. DERMATOLOGIC: No rashes. NEUROLOGIC: No change in exam. MEDICATIONS: Reviewed. LABORATORY DATA: Shows sodium 147, potassium 4.3, BUN 49, creatinine 1.06. White count 16.3, hemogl obin 8.1, platelet count is 58. IMAGING: Chest x-ray was reviewed, shows patchy infiltrates on both lungs. ASSESSMENT AND PLAN: 1. Nonoliguric acute kidney injury with unknown baseline creatinine. Etiology of acute kidney injur y is secondary to hemodynamics, sepsis. Renal function has been fluctuating. Urinary output has bee n adequate. Will continue current treatment plan, support care, renally dose all meds. 2. Hyponatremia. Sodium levels remain elevated. Continue free water flushes. We will change fluid s to half NS and monitor closely. 3. Anemia. Continue to monitor hemoglobin and hematocrit levels. 4. Mineral bone disorder. Monitor calcium and phosphorus levels. 5. Volume overload. Etiology may be secondary to capillary leak. The patient has noted peripheral edema. We will deescalate IV fluids. Avoid diuretics in the setting of shock. 6. Septic shock secondary to pneumonia, bacteremia. The patient remains on pressor support, IV anti biotics, continue gentle IV hydration. 7. Ventilator-dependent respiratory failure. Vent settings and ABG was reviewed. Continue to monit or. 8. Encephalopathy, etiology is toxic metabolic. Continue medical management. 9. Peripheral vascular disease. 10. Status post hip fracture. Please note I spent over 30 minutes of critical care time with this patient. Dictated By: GENEVIEVE BERNSTEIN/MARLENY Conf#: [id number] DID#: [id number] CC: ABDIAS STAPLES MD;*EndCC*
[2018-08-06] MEDS: PROPOFOL 100 ML IV SCH ×2 (08:50→20:35)
[2018-08-06] MEDS: LEVOFLOXACIN 500MG/D5W (PMX) 100 ML IVPB SCH (09:15)
[2018-08-06] MEDS: PHENYLephrine 20MG IN 250 ML 250 ML IV SCH ×2 (09:29→12:53)
[2018-08-06] MEDS: FENTAnyl (DRIP) 1000 mcg/100mL 100 ML IV SCH ×2 (10:19→21:53)
[2018-08-06] MEDS: VANCOMYCIN 750 MG (PMX) 250 ML IVPB SCH (10:22)
--- NOTE | 2018-08-06 13:34 | CONS ---
Assessment/Plan Assessment/Plan Hospital Course (Demo Recall) Remains intubated sedated in no distress. With low-grade fevers today of 100.5. WBC 16.3 H&H 8.1 and 27.7 platelets 58 BUN 49 creatinine 1.06 Chest x-ray this morning revealed stable patchy infiltrates throughout both lungs with potential small pleural effusions. Involving: Endotracheal tube and NG tube [place] catheter PICC line Antimicrobials: Cefepime, vancomycin, fluconazole Allergies: Penicillin, tetracycline Physical examination: This is a fragile chronically ill-appearing wasted elderly woman who is in no distress. Head atraumatic normocephalic sclera nonicteric. Neck is supple. Chest rise symmetrical breath sounds diminished bases. Heart: S1-S2. Abdomen soft bowel sounds present extremities without cyanosis. Assessment: 1. Severe sepsis, present on admission 2. Acute on chronic respiratory failure, status post intubation 08/02/18 3. Healthcare associated pneumonia/ARDS 4. Coag negative staph bacteremia, possibly contaminant 5. Anemia with progressive thrombocytopenia 6. Leukocytosis likely steroid-induced 5. Peripheral arterial disease status post stent 6. Pancreatic head mass, patient is following with a specialist yearly 7. Recent right hip fracture status post surgical intervention Plan: Clinically unchanged, we will will change cefepime to meropenem given progressive thrombocytopenia, repeat sputum and urine cultures continue vent management per pulmonary recommendations Consultation Date/Type/Reason Admit Date/Time Jul 28, 2018 at 18:16 Initial Consult Date 07/28/18 Type of Consult id Requesting Provider: ABDIAS STAPLES MD Date/Time of Note DATE: 08/06/18 TIME: 13:32 Exam/Review of Systems Exam Vitals Vital Signs Date Temp Pulse Resp B/P (MAP) Pulse Ox O2 O2 Flow FiO2 Time Delivery Rate 08/06/18 87 21 103/37 98 12:30 (59) 08/06/18 100.5 [place] 12:00 l Ventilato r 08/06/18 80 09:15 Intake and Output 08/05/18 08/05/18 08/06/18 1515:00 23:00 07:00 IntakeIntake Total 1814.85 ml 1686.375 ml 1208.75 ml OutputOutput Total 410 ml 405 ml 375 ml BalanceBalance 1404.85 ml 1281.375 ml 833.75 ml Results Result Diagram: 08/06/18 0400 08/06/18 0400 Results 24hrs Laboratory Tests Test 08/06/18 04:00 08/06/18 05:00 White Blood Count 16.3 #H Red Blood Count 2.61 L Hemoglobin 8.1 L Hematocrit 27.7 L Mean Corpuscular Volume 106.1 H Mean Corpuscular Hemoglobin 31.0 Mean Corpuscular Hemoglobin Concent 29.2 L Red Cell Distribution Width 19.8 H Platelet Count 58 #L Mean Platelet Volume 12.4 H Immature Granulocytes % 1.000 H Neutrophils % Segmented Neutrophils % (Manual) 81 H Band Neutrophils % (Manual) 8 H Lymphocytes % Lymphocytes % (Manual) 7 L Reactive Lymphocytes % (Manual) 2 H Monocytes % Monocytes % (Manual) 1 Eosinophils % Eosinophils % (Manual) 1 Basophils % Nucleated Red Blood Cells % 0.0 Immature Granulocytes # 0.170 H Neutrophils # Neutrophils # (Manual) 13.4 H Band Neutrophils # 1.3 H Lymphocytes (Manual) 1.1 Lymphocytes # Reactive Lymphocytes # 0.3 H Monocytes # Monocytes # (Manual) 0.1 L Eosinophils # Basophils # Nucleated Red Blood Cells # Platelet Estimate SIG DECREASED Polychromasia 1+ Anisocytosis 1+ Macrocytosis 1+ Sodium Level 147 H Potassium Level 4.3 Chloride Level 112 H Carbon Dioxide Level 29 Anion Gap 6 Blood Urea Nitrogen 49 H Creatinine 1.06 H Est Glomerular Filtrat Rate mL/min Glucose Level 140 Calcium Level 7.9 L Phosphorus Level 2.9 Magnesium Level 2.2 Total Bilirubin 0.0 L Direct Bilirubin 0.00 Indirect Bilirubin 0.0 Aspartate Amino Transf (AST/SGOT) 48 H Alanine Aminotransferase (ALT/SGPT) 50 Alkaline Phosphatase 114 Total Protein 4.9 L Albumin 2.4 L Globulin 2.50 Albumin/Globulin Ratio 0.96 Blood Gas Specimen Source Blood arterial Arterial Blood Date Drawn 08/06/2018 4:55:29 AM Arterial Blood pH (Temp corrected) 7.228 *L Arterial Blood pCO2 (Temp correct) 70.7 H Arterial Blood pO2 (Temp corrected) 89.8 Arterial Blood HCO3 28.8 H Arterial Blood Base Excess 0.4 Arterial Blood Oxygen Saturation 95.8 Vick Test ACCEPTAB Arterial Blood Gas Puncture Site Right Radial Arterial Blood Carboxyhemoglobin 0.3 Arterial Blood Methemoglobin 0.1 Blood Gas A-a O2 Differential 406.4 H Oxyhemoglobin Percent 95.4 Blood Gas Temperature 37.0 Blood Gas Respiration Rate 18.0 Blood Gas Actual Respiration Rate 18 Blood Gas Modality VENT - AC FiO2 80.0 Blood Gas Tidal Volume 500.0 Blood Gas Low PEEP Setting 5.0 Blood Gas Inspiratory Pressure 36.0 Blood Gas Critical Value Read Back valerie ontiveros rn Blood Gas Notified Whom trevor dhillon rcp Blood Gas Notified Time 08/06/2018 5:04:12 AM Medications Medication Current Medications Vancomycin HCl (Vanco Iv Per Pharmacy) VANCOMYCIN PER PHARMACY PER PROTOCOL XX ; Start 07/28/18 at 17:30 Cefepime HCl 50 ml @ 100 mls/hr Q12 IVPB Last administered on 08/06/18 08:11; Admin Dose 100 MLS/HR; Start 07/28/18 at 21:00 Albuterol/ Ipratropium (Duoneb) 3 ml Q6H RESP THERAPY HHN Last administered on 08/02/18 01:07; Admin Dose 3 ML; Start 07/28/18 at 20:00; Status Hold Calcium/Vitamin D (Oyster Shell/ Vit-D (500/200)) 1 tab BID PO Last administered on 08/06/18 08:14; Admin Dose 1 TAB; Start 07/28/18 at 21:00 Clonazepam (Klonopin) 0.5 mg BID PRN PO ANXIETY Last administered on 08/04/18 21:00; Admin Dose 0.5 MG; Start 07/28/18 at 21:00 Clonidine (Catapres) 0.1 mg TID PRN PO ELEVATED BLOOD PRESSURE Last administered on 07/29/18 16:54; Admin Dose 0.1 MG; Start 07/28/18 at 21:00 Hydromorphone HCl (Dilaudid) 2 mg Q4H PRN PO SEVERE PAIN LEVEL 7-10 Last administered on 08/01/18 23:34; Admin Dose 2 MG; Start 07/28/18 at 21:00 Docusate Sodium (Colace) 100 mg BID PRN PO CONSTIPATION; Start 07/28/18 at 21:00 Gabapentin (Neurontin) 200 mg BID PO Last administered on 08/06/18 08:14; Admin Dose 200 MG; Start 07/28/18 at 21:00 Metoprolol Tartrate (Lopressor) 25 mg BID PO Last administered on 1/29/19at 10:05; Admin Dose 25 MG; Start 07/28/18 at 21:00 Magnesium Hydroxide (Milk Of Mag) 30 ml DAILY PRN PO CONSTIPATION; Start 07/28/18 at 21:00 Acetaminophen/ Hydrocodone Bitart ([place] (10/325)) 1 tab Q4H PRN PO MODERATE PAIN LEVEL 4-6 Last administered on 08/01/18 21:02; Admin Dose 1 TAB; Start 07/28/18 at 21:00 Carisoprodol (Soma) 350 mg BID PRN PO MUSCLE SPASMS; Start 07/28/18 at 21:00 Trazodone HCl (Desyrel) 50 mg HS PRN PO INSOMNIA Last administered on 07/29/18 20:29; Admin Dose 50 MG; Start 07/28/18 at 21:00 Ondansetron HCl (Zofran Inj) 4 mg Q6H PRN IV NAUSEA AND/OR VOMITING; Start 07/28/18 at 21:00 Methylprednisolone Sodium Succinate (Solu-Medrol) 40 mg DAILY IV Last administered on 08/06/18 08:14; Admin Dose 40 MG; Start 07/29/18 at 09:00 Ascorbic Acid (Vitamin C) 500 mg TID PO Last administered on 08/06/18 12:24; Admin Dose 500 MG; Start 07/29/18 at 09:00 Lorazepam (Ativan) 0.5 mg Q6H PRN PO ANXIETY Last administered on 08/05/18 04:06; Admin Dose 0.5 MG; Start 07/29/18 at 20:30 Guaifenesin/ Dextromethorphan (Robitussin Dm Liquid Cup) 5 ml Q4H PRN PO COUGH Last administered on 08/01/18 16:32; Admin Dose 5 ML; Start 07/29/18 at 20:30 Diltiazem HCl 125 ml @ 5 mls/hr TITRATE IV Last administered on 07/30/18 09:40; Admin Dose 5 MLS/HR; Start 07/30/18 at 09:00; Status Hold Dronedarone (Multaq) 400 mg BID WITH MEALS PO Last administered on 08/06/18 08:14; Admin Dose 400 MG; Start 07/30/18 at 09:30 Propofol 100 ml @ 1.986 mls/ hr Q12H IV Last administered on 08/05/18 06:36; Admin Dose 11.916 MLS/HR; Start 08/02/18 at 10:00 Albuterol (Ventolin Hfa) 4 puff Q6H RESP THERAPY INH Last administered on 08/06/18 08:37; Admin Dose 4 PUFF; Start 08/02/18 at 14:00 Ipratropium [place] (Atrovent Hfa) 4 puff Q6H RESP THERAPY INH Last administered on 08/06/18 08:37; Admin Dose 4 PUFF; Start 08/02/18 at 14:00 Fluconazole/ Sodium Chloride 50 ml @ 50 mls/hr Q24H IVPB Last administered on 08/05/18 17:06; Admin Dose 50 MLS/HR; Start 08/02/18 at 17:00 Acetaminophen (Tylenol Liquid) 650 mg Q6H PRN GTB MILD PAIN (1-3) OR TEMPERATURE; Start 08/03/18 at 09:30 Docusate Sodium (Colace Liquid Cup) 100 mg BID PRN GTB CONSTIPATION,,,,; Start 08/03/18 at 09:30 Vancomycin/Sodium Chloride 250 ml @ 125 mls/hr Q24H IVPB Last administered on 08/06/18at 10:22; Admin Dose 125 MLS/HR; Start 08/04/18 at 10:00 IV Flush (NS 10 ml) 10 ml PRN PRN IV IV PROTOCOL; Start 08/03/18 at 10:30 Fentanyl 100 ml @ 2.5 mls/hr TITRATE IV Last administered on 08/06/18at 10:19; Admin Dose 10 MLS/HR; Start 08/04/18 at 09:00 Lansoprazole (Prevacid) 30 mg DAILY@06 GTB Last administered on 08/06/18at 05:39; Admin Dose 30 MG; Start 08/05/18 at 06:00 Midazolam HCl 50 ml @ 1 mls/hr TITRATE IV Last administered on 08/06/18at 10:20; Admin Dose 5 MLS/HR; Start 08/05/18 at 12:00 Norepinephrine 250 ml @ 1.875 mls/ hr TITRATE IV Last administered on 08/05/18at 13:00; Admin Dose 30 MLS/HR; Start 08/05/18 at 13:00 Sodium Chloride 1,000 ml @ 50 mls/hr Q20H IV Last administered on 08/06/18at 08:11; Admin Dose 50 MLS/HR; Start 08/06/18 at 08:00 Levofloxacin/ Dextrose 100 ml @ 100 mls/hr Q24H IVPB Last administered on 08/06/18at 09:15; Admin Dose 100 MLS/HR; Start 08/06/18 at 08:30 Phenylephrine HCl 250 ml @ 75 mls/hr TITRATE IV Last administered on 08/06/18at 12:53; Admin Dose 75 MLS/HR; Start 08/06/18 at 09:00 ANDREW SMITH NP Aug 06, 2018 13:34
[2018-08-06] MEDS: FLUCONAZOLE 100 MG/50 ML (PMX) 50 ML IVPB SCH (16:36)
[2018-08-06] MEDS: PHENYLephrine 80 MG in DEXTROSE 5% 242 ML IV SCH (19:44)
--- NOTE | 2018-08-06 20:15 | PN ---
Date/Time of Note Date/Time of Note DATE: 08/06/18 TIME: 20:09 Assessment/Plan VTE Prophylaxis Risk score (from [facility])>0 risk: 11 SCD applied (from [facility]): Yes Pharmacological prophylaxis: NA/contraindicated Pharm contraindication: bleeding Lines/Catheters IV Catheter Type (from [facility]): PICC Line Central line still needed: Yes Urinary Cath still in place: Yes Reason Cath still needed: urinary retention Assessment/Plan Hospital Course Patient had an episode of atrial flutter in the morning, Levophed drip was switched to Matt-Synephrine. Patient is on fentanyl and Versed drips patient continued on ventilatory support. Assessment/Plan - Acute hypoxemic respiratory failure due to healthcare-acquired pneumonia/ ARDS. Continue ventilatory support, steroids. from pulmonary standpoint. - Anemia of acute blood loss secondary to nosebleed admission, resolved. status post blood transfusion, continue to monitor hemoglobin and hematocrit. - Sepsis with gram-positive bacteremia. Continue antibiotics per ID. Dr. Brown is following in infection disease consultation. - Bilateral pulmonary fibrosis. Continue supplemental oxygen and symptomatic treatment with steroids. - Chronic obstructive pulmonary disease. Continue DuoNeb and steroids. - Nonobstructive coronary artery disease as per cardiac catheterization in 2013. Dr. Frost is following from cardiac standpoint. - Paroxysmal atrial fibrillation. Patient had an episode of atrial fibrillation with rapid ventricular response and was on Cardizem drip, currently in sinus rhythm. - Hypertension. Continue metoprolol and Lasix. p.r.n. clonidine. - Peripheral artery disease, status post stent. - Dyslipidemia. Continue Lipitor. - MARQUES, Dr. Salazar from nephrology standpoint. - Recent right hip fracture, status post surgery. - Pancreatic head mass. As per patient, she has been going to a specialist every year for followup. - Anxiety and depression, continue Klonopin and Prozac. Critical care time spent more than 35 minutes. Further recommendations based on clinical course. Plan of care discussed with Dr. Pack. Result Diagram: 08/06/18 0400 08/06/18 0400 Results 24hrs Laboratory Tests Test 08/06/18 04:00 08/06/18 05:00 White Blood Count 16.3 #H Red Blood Count 2.61 L Hemoglobin 8.1 L Hematocrit 27.7 L Mean Corpuscular Volume 106.1 H Mean Corpuscular Hemoglobin 31.0 Mean Corpuscular Hemoglobin Concent 29.2 L Red Cell Distribution Width 19.8 H Platelet Count 58 #L Mean Platelet Volume 12.4 H Immature Granulocytes % 1.000 H Neutrophils % Segmented Neutrophils % (Manual) 81 H Band Neutrophils % (Manual) 8 H Lymphocytes % Lymphocytes % (Manual) 7 L Reactive Lymphocytes % (Manual) 2 H Monocytes % Monocytes % (Manual) 1 Eosinophils % Eosinophils % (Manual) 1 Basophils % Nucleated Red Blood Cells % 0.0 Immature Granulocytes # 0.170 H Neutrophils # Neutrophils # (Manual) 13.4 H Band Neutrophils # 1.3 H Lymphocytes (Manual) 1.1 Lymphocytes # Reactive Lymphocytes # 0.3 H Monocytes # Monocytes # (Manual) 0.1 L Eosinophils # Basophils # Nucleated Red Blood Cells # Platelet Estimate SIG DECREASED Polychromasia 1+ Anisocytosis 1+ Macrocytosis 1+ Sodium Level 147 H Potassium Level 4.3 Chloride Level 112 H Carbon Dioxide Level 29 Anion Gap 6 Blood Urea Nitrogen 49 H Creatinine 1.06 H Est Glomerular Filtrat Rate mL/min Glucose Level 140 Calcium Level 7.9 L Phosphorus Level 2.9 Magnesium Level 2.2 Total Bilirubin 0.0 L Direct Bilirubin 0.00 Indirect Bilirubin 0.0 Aspartate Amino Transf (AST/SGOT) 48 H Alanine Aminotransferase (ALT/SGPT) 50 Alkaline Phosphatase 114 Total Protein 4.9 L Albumin 2.4 L Globulin 2.50 Albumin/Globulin Ratio 0.96 Blood Gas Specimen Source Blood arterial Arterial Blood Date Drawn 08/06/2018 4:55:29 AM Arterial Blood pH (Temp corrected) 7.228 *L Arterial Blood pCO2 (Temp correct) 70.7 H Arterial Blood pO2 (Temp corrected) 89.8 Arterial Blood HCO3 28.8 H Arterial Blood Base Excess 0.4 Arterial Blood Oxygen Saturation 95.8 Vick Test ACCEPTAB Arterial Blood Gas Puncture Site Right Radial Arterial Blood Carboxyhemoglobin 0.3 Arterial Blood Methemoglobin 0.1 Blood Gas A-a O2 Differential 406.4 H Oxyhemoglobin Percent 95.4 Blood Gas Temperature 37.0 Blood Gas Respiration Rate 18.0 Blood Gas Actual Respiration Rate 18 Blood Gas Modality VENT - AC FiO2 80.0 Blood Gas Tidal Volume 500.0 Blood Gas Low PEEP Setting 5.0 Blood Gas Inspiratory Pressure 36.0 Blood Gas Critical Value Read Back valerie ontiveros rn Blood Gas Notified Whom d ali service officer Blood Gas Notified Time 08/06/2018 5:04:12 AM Exam/Review of Systems Exam Vitals Vital Signs Date Temp Pulse Resp B/P (MAP) Pulse Ox O2 O2 Flow FiO2 Time Delivery Rate 08/06/18 98.6 79 22 104/42 100 Mechanical 19:30 (62) Ventilator 08/06/18 60 17:00 Intake and Output 08/05/18 08/05/18 08/06/18 1515:00 23:00 07:00 IntakeIntake Total 1814.85 ml 1686.375 ml 1208.75 ml OutputOutput Total 410 ml 405 ml 375 ml BalanceBalance 1404.85 ml 1281.375 ml 833.75 ml Exam Constitutional: frail, other (Orally intubated) ENMT: other (OGT) Neck: supple Respiratory: diminished breath sounds Gastrointestinal: soft, non-tender Extremities: normal pulses Neurological: other (Sedated) Results Results 24hrs Laboratory Tests Test 08/06/18 04:00 08/06/18 05:00 White Blood Count 16.3 #H Red Blood Count 2.61 L Hemoglobin 8.1 L Hematocrit 27.7 L Mean Corpuscular Volume 106.1 H Mean Corpuscular Hemoglobin 31.0 Mean Corpuscular Hemoglobin Concent 29.2 L Red Cell Distribution Width 19.8 H Platelet Count 58 #L Mean Platelet Volume 12.4 H Immature Granulocytes % 1.000 H Neutrophils % Segmented Neutrophils % (Manual) 81 H Band Neutrophils % (Manual) 8 H Lymphocytes % Lymphocytes % (Manual) 7 L Reactive Lymphocytes % (Manual) 2 H Monocytes % Monocytes % (Manual) 1 Eosinophils % Eosinophils % (Manual) 1 Basophils % Nucleated Red Blood Cells % 0.0 Immature Granulocytes # 0.170 H Neutrophils # Neutrophils # (Manual) 13.4 H Band Neutrophils # 1.3 H Lymphocytes (Manual) 1.1 Lymphocytes # Reactive Lymphocytes # 0.3 H Monocytes # Monocytes # (Manual) 0.1 L Eosinophils # Basophils # Nucleated Red Blood Cells # Platelet Estimate SIG DECREASED Polychromasia 1+ Anisocytosis 1+ Macrocytosis 1+ Sodium Level 147 H Potassium Level 4.3 Chloride Level 112 H Carbon Dioxide Level 29 Anion Gap 6 Blood Urea Nitrogen 49 H Creatinine 1.06 H Est Glomerular Filtrat Rate mL/min Glucose Level 140 Calcium Level 7.9 L Phosphorus Level 2.9 Magnesium Level 2.2 Total Bilirubin 0.0 L Direct Bilirubin 0.00 Indirect Bilirubin 0.0 Aspartate Amino Transf (AST/SGOT) 48 H Alanine Aminotransferase (ALT/SGPT) 50 Alkaline Phosphatase 114 Total Protein 4.9 L Albumin 2.4 L Globulin 2.50 Albumin/Globulin Ratio 0.96 Blood Gas Specimen Source Blood arterial Arterial Blood Date Drawn 08/06/2018 4:55:29 AM Arterial Blood pH (Temp corrected) 7.228 *L Arterial Blood pCO2 (Temp correct) 70.7 H Arterial Blood pO2 (Temp corrected) 89.8 Arterial Blood HCO3 28.8 H Arterial Blood Base Excess 0.4 Arterial Blood Oxygen Saturation 95.8 Vick Test ACCEPTAB Arterial Blood Gas Puncture Site Right Radial Arterial Blood Carboxyhemoglobin 0.3 Arterial Blood Methemoglobin 0.1 Blood Gas A-a O2 Differential 406.4 H Oxyhemoglobin Percent 95.4 Blood Gas Temperature 37.0 Blood Gas Respiration Rate 18.0 Blood Gas Actual Respiration Rate 18 Blood Gas Modality VENT - AC FiO2 80.0 Blood Gas Tidal Volume 500.0 Blood Gas Low PEEP Setting 5.0 Blood Gas Inspiratory Pressure 36.0 Blood Gas Critical Value Read Back valerie ontiveros rn Blood Gas Notified Whom trevor dhillon service officer Blood Gas Notified Time 08/06/2018 5:04:12 AM Medications Medication Current Medications Vancomycin HCl (Vanco Iv Per Pharmacy) VANCOMYCIN PER PHARMACY PER PROTOCOL XX ; Start 07/28/18 at 17:30 Albuterol/ Ipratropium (Duoneb) 3 ml Q6H RESP THERAPY HHN Last administered on 08/02/18at 01:07; Admin Dose 3 ML; Start 07/28/18 at 20:00; Status Hold Calcium/Vitamin D (Oyster [place]/ Vit-D (500/200)) 1 tab BID PO Last administered on 08/06/18at 08:14; Admin Dose 1 TAB; Start 07/28/18 at 21:00 Clonazepam (Klonopin) 0.5 mg BID PRN PO ANXIETY Last administered on 08/04/18at 21:00; Admin Dose 0.5 MG; Start 07/28/18 at 21:00 Clonidine (Catapres) 0.1 mg TID PRN PO ELEVATED BLOOD PRESSURE Last administered on 07/29/18at 16:54; Admin Dose 0.1 MG; Start 07/28/18 at 21:00 Hydromorphone HCl (Dilaudid) 2 mg Q4H PRN PO SEVERE PAIN LEVEL 7-10 Last administered on 08/01/18 23:34; Admin Dose 2 MG; Start 07/28/18 at 21:00 Docusate Sodium (Colace) 100 mg BID PRN PO CONSTIPATION; Start 07/28/18 at 21:00 Gabapentin (Neurontin) 200 mg BID PO Last administered on 08/06/18 08:14; Admin Dose 200 MG; Start 07/28/18 at 21:00 Metoprolol Tartrate (Lopressor) 25 mg BID PO Last administered on 08/04/18 10:05; Admin Dose 25 MG; Start 07/28/18 at 21:00 Magnesium Hydroxide (Milk Of Mag) 30 ml DAILY PRN PO CONSTIPATION; Start 07/28/18 at 21:00 Acetaminophen/ Hydrocodone Bitart ([place] (10325)) 1 tab Q4H PRN PO MODERATE PAIN LEVEL 4-6 Last administered on 08/01/18 21:02; Admin Dose 1 TAB; Start 07/28/18 at 21:00 Carisoprodol (Soma) 350 mg BID PRN PO MUSCLE SPASMS; Start 07/28/18 at 21:00 Trazodone HCl (Desyrel) 50 mg HS PRN PO INSOMNIA Last administered on 07/29/18 20:29; Admin Dose 50 MG; Start 07/28/18 at 21:00 Ondansetron HCl (Zofran Inj) 4 mg Q6H PRN IV NAUSEA AND/OR VOMITING; Start 07/28/18 at 21:00 Methylprednisolone Sodium Succinate (Solu-Medrol) 40 mg DAILY IV Last administered on 08/06/18 08:14; Admin Dose 40 MG; Start 07/29/18 at 09:00 Ascorbic Acid (Vitamin C) 500 mg TID PO Last administered on 08/06/18 12:24; Admin Dose 500 MG; Start 07/29/18 at 09:00 Lorazepam (Ativan) 0.5 mg Q6H PRN PO ANXIETY Last administered on 08/05/18 04:06; Admin Dose 0.5 MG; Start 07/29/18 at 20:30 Guaifenesin/ Dextromethorphan (Robitussin Dm Liquid Cup) 5 ml Q4H PRN PO COUGH Last administered on 08/01/18 16:32; Admin Dose 5 ML; Start 07/29/18 at 20:30 Diltiazem HCl 125 ml @ 5 mls/hr TITRATE IV Last administered on 07/30/18 09:40; Admin Dose 5 MLS/HR; Start 07/30/18 at 09:00; Status Hold Dronedarone (Multaq) 400 mg BID WITH MEALS PO Last administered on 08/06/18 16:36; Admin Dose 400 MG; Start 07/30/18 at 09:30 Propofol 100 ml @ 1.986 mls/ hr Q12H IV Last administered on 08/05/18 06:36; Admin Dose 11.916 MLS/HR; Start 08/02/18 at 10:00 Albuterol (Ventolin Hfa) 4 puff Q6H RESP THERAPY INH Last administered on 08/06/18 14:05; Admin Dose 4 PUFF; Start 08/02/18 at 14:00 Ipratropium [place] (Atrovent Hfa) 4 puff Q6H RESP THERAPY INH Last administered on 08/06/18 14:05; Admin Dose 4 PUFF; Start 08/02/18 at 14:00 Fluconazole/ Sodium Chloride 50 ml @ 50 mls/hr Q24H IVPB Last administered on 08/06/18 16:36; Admin Dose 50 MLS/HR; Start 08/02/18 at 17:00 Acetaminophen (Tylenol Liquid) 650 mg Q6H PRN GTB MILD PAIN (1-3) OR TEMPERATURE; Start 08/03/18 at 09:30 Docusate Sodium (Colace Liquid Cup) 100 mg BID PRN GTB CONSTIPATION,,,,; Start 08/03/18 at 09:30 Vancomycin/Sodium Chloride 250 ml @ 125 mls/hr Q24H IVPB Last administered on 08/06/18 10:22; Admin Dose 125 MLS/HR; Start 08/04/18 at 10:00 IV Flush (NS 10 ml) 10 ml PRN PRN IV IV PROTOCOL; Start 08/03/18 at 10:30 Fentanyl 100 ml @ 2.5 mls/hr TITRATE IV Last administered on 08/06/18 10:19; Admin Dose 10 MLS/HR; Start 08/04/18 at 09:00 Lansoprazole (Prevacid) 30 mg DAILY@06 GTB Last administered on 08/06/18at 05:39; Admin Dose 30 MG; Start 08/05/18 at 06:00 Midazolam HCl 50 ml @ 1 mls/hr TITRATE IV Last administered on 08/06/18at 10:20; Admin Dose 5 MLS/HR; Start 08/05/18 at 12:00 Norepinephrine 250 ml @ 1.875 mls/ hr TITRATE IV Last administered on 08/05/18at 13:00; Admin Dose 30 MLS/HR; Start 08/05/18 at 13:00 Sodium Chloride 1,000 ml @ 50 mls/hr Q20H IV Last administered on 08/06/18at 08:11; Admin Dose 50 MLS/HR; Start 08/06/18 at 08:00 Levofloxacin/ Dextrose 100 ml @ 100 mls/hr Q24H IVPB Last administered on 08/06/18at 09:15; Admin Dose 100 MLS/HR; Start 08/06/18 at 08:30 Meropenem/Sodium Chloride 50 ml @ 100 mls/hr Q12 IVPB ; Start 08/06/18 at 21:00 Miscellaneous Information (*Rx Drug Level Order Reminder*) VANCO TROUGH 08/07 @ 0,900 ONCE ONCE XX ; Start 08/07/18 at 09:00; Stop 08/07/18 at 09:01 Phenylephrine HCl 80 mg/Dextrose 250 ml @ 18.75 mls/ hr TITRATE IV Last administered on 08/06/18at 19:44; Admin Dose 18.75 MLS/HR; Start 08/06/18 at 15:30 RAMÓN VILLALOBOS Aug 06, 2018 20:15
[2018-08-06] MEDS: MEROPENEM 1 GM/50ML(PMX) 50 ML IVPB SCH (20:34)
[2018-08-07] VITALS (100 sets, daily range): BP systolic 89–123; BP diastolic 33–49; PULSE 60–120; RESP 18–24
[2018-08-07] MEDS: ALBUTEROL HFA 8 GM INHALER INH SCH ×4 (01:05→19:07)
[2018-08-07] MEDS: IPRATROPIUM (HFA) 12.9 GM INHALER INH SCH ×4 (01:05→19:07)
[2018-08-07] MEDS: SOD CHLORIDE 0.45% 1,000 ML IV SCH ×2 (03:20→16:41)
[2018-08-07] MEDS: LANSOPRAZOLE 30 MG CAP GTB SCH (05:17)
--- NOTE | 2018-08-07 06:53 | CONS ---
Consult Date/Type/Reason Admit Date/Time Jul 28, 2018 at 18:16 Initial Consult Date 07/28/18 Type of Consultation: cv Requesting Provider: ABDIAS STAPLES MD Date/Time of Note DATE: 08/07/18 TIME: 06:49 Subjective Cardiology follow-up progress note Subjective: Discussed with the staff and Telemetry was reviewed. Patient REMAINS INTUBATED on vent in ICU he remains in NSR now but yesterday patient went into atrial fibrillation rapid ventricular response. I have switched the pressures from Levophed to Matt- Synephrine drip. She has converted back to sinus rhythm heart rate remained stable now back in sinus Patient has been more confused and lethargic apparently and unresponsive Patient is lethargic and unable to provide any history to me Objective: General: Elderly female INTUBATED on vent . HEENT: NC/AT. pupils are equal. round. NECK: + JVD. no stridor. CV regular rate and rhythm systolic murmur; no gallop or rubs. PULM: no wheezing + rhonchi. GI: SOFT, NT, ND, no rebound or guarding Extremity: No significant LE edema. no clubbing. neuro: intubated on vent Psych: calm rectal: deferred : Deferred EKG was personally within normal sinus rhythm with no evidence of ischemia CT pulmonary angiogram done in the emergency room shows: 1. Moderate pulmonary fibrosis, worse at the bilateral lung apices. Associated mediastinal adenopathy. Underlying mass not entirely excluded. Further evaluation with PET-CT may be obtained. 2. Small right multiloculated pleural effusion. Moderate left layering pleural effusion. 3. Streaky bibasilar opacities compatible with atelectasis or pneumonia. 4. Dilated pulmonary trunk and bilateral pulmonary arteries compatible with sequelae of pulmonary hypertension. 5. Left renal 4 cm hyperdense cyst or mass. Further evaluation with multiphase contrast enhanced CT or MR may be obtained. Echocardiogram was personally reviewed which shows: Normal left ventricular systolic function. Normal left ventricular cavity size. Mild concentric left ventricular hypertrophy. Ejection fraction is visually estimated at 55 %. There is mild enlargement of left atrium. Normal appearance of the mitral valve. Mild mitral valve regurgitation. Aortic sclerosis without significant stenosis. Aortic cusps appear mildly calcified. Trileaflet aortic valve. Trace aortic valve regurgitation. Normal appearance of the tricuspid valve. Estimated peak PA systolic pressure 71 mmHg. There is mild tricuspid regurgitation. Normal size and normal respiratory collapse consistent with normal right atrial pressure. CXR 08/05 Again seen are diffuse coarse interstitial infiltrates with superimposed ground-glass densities, slightly more confluent within the perihilar regions and right lower lobe. The osseous structures are unremarkable. Chest x-ray August 06, 2018 shows: Stable patchy infiltrates throughout both lungs with potential small pleural effusions. Stable diffuse mild interstitial prominence in both lungs. Interstitial prominence could be chronic. Objective Vitals Vital Signs Date Temp Pulse Resp B/P (MAP) Pulse Ox O2 O2 Flow FiO2 Time Delivery Rate 08/07/18 66 22 108/37 05:45 (60) 08/07/18 98 70 05:00 08/07/18 98.9 04:00 08/06/18 Mechanical 20:30 Ventilator Intake and Output 08/06/18 08/06/18 08/07/18 1515:00 23:00 07:00 IntakeIntake Total 1950.0 ml 1170 ml 240 ml OutputOutput Total 565 ml 215 ml 160 ml BalanceBalance 1385.0 ml 955 ml 80 ml Results/Medications Result Diagram: 08/07/18 0430 08/07/18 0430 Results 24 hrs Laboratory Tests Test 08/07/18 04:30 White Blood Count 17.6 H Red Blood Count 2.46 L Hemoglobin 7.7 L Hematocrit 26.3 L Mean Corpuscular Volume 106.9 H Mean Corpuscular Hemoglobin 31.3 Mean Corpuscular Hemoglobin Concent 29.3 L Red Cell Distribution Width 19.9 H Platelet Count 39 #L Mean Platelet Volume 13.4 H Immature Granulocytes % 1.400 H Neutrophils % 88.1 H Lymphocytes % 7.4 L Monocytes % 2.9 Eosinophils % 0.1 Basophils % 0.1 Nucleated Red Blood Cells % 0.2 H Immature Granulocytes # 0.250 H Neutrophils # 15.5 H Lymphocytes # 1.3 Monocytes # 0.5 Eosinophils # 0.0 Basophils # 0.0 Nucleated Red Blood Cells # 0.0 Sodium Level 146 H Potassium Level 5.4 H Chloride Level 111 H Carbon Dioxide Level 25 Anion Gap 10 Blood Urea Nitrogen 61 H Creatinine 1.20 H Est Glomerular Filtrat Rate mL/min Glucose Level 126 Calcium Level 8.5 Phosphorus Level 3.3 Magnesium Level 2.3 Home Meds Reported Medications Ondansetron Hcl* (Zofran*) 8 Mg Tablet, 8 MG PO Q6H PRN for NAUSEA AND OR VOMITING, TAB 07/28/18 Guaifenesin (Xpect) 400 Mg Tablet, 400 MG PO Q12, TAB 07/28/18 Acetaminophen* (Acetaminophen*) 650 Mg Tablet, 650 MG PO Q6H PRN for PAIN AND OR ELEVATED TEMP, #30 TAB 07/28/18 Trazodone Hcl* (Trazodone Hcl*) 50 Mg Tablet, 50 MG PO QHS, #30 TAB 07/28/18 Carisoprodol* (Carisoprodol*) 350 Mg Tablet, 350 MG PO BID PRN for MUSCLE SPASMS, TAB 07/28/18 Montelukast Sodium* (Singulair*) 10 Mg Tablet, 10 MG PO QHS, #30 TAB 07/28/18 Sennosides* (Senna Lax*) 8.6 Mg Tablet, 2 TAB PO QHS, TAB 07/28/18 Fluoxetine Hcl* (Prozac*) 20 Mg Capsule, 20 MG PO DAILY, CAP 07/28/18 Promethazine Hcl* (Phenergan* Liq) 6.25 Mg/5 Ml Syrup, 12.5 MG PO Q6H PRN for C OUGH, ML 07/28/18 Lansoprazole* (Lansoprazole*) 30 Mg Capsule.dr, 30 MG PO DAILY, CAP 07/28/18 Vit C/E/Zn/Coppr/Lutein/Zeaxan (Preservision Areds 2 Softgel) 1 Each Capsule, 2 EACH PO DAILY, CAP 07/28/18 Prednisone* (Prednisone*) 20 Mg Tab, 40 MG PO DAILY, TAB 07/28/18 Chlorhexidine Gluconate (Peridex) 473 Ml Mouthwash, 15 ML MM BID, BOTTLE 07/28/18 Lee-3 Acid Ethyl Esters (Lovaza) 1 Gm Capsule, 2 GM PO DAILY, CAP 07/28/18 Hydrocodone/Acetaminophen ([place] 10-325 Tablet) 1 Each Tablet, 1 EACH PO Q4 PRN for SEVERE PAIN LEVEL 7-10, TAB 07/28/18 Multivitamins* (Theragran*) 1 Tab Tab, 1 TAB PO DAILY, TAB 07/28/18 Guaifenesin (Guaifenesin) 600 Mg Tablet.sa, 600 MG PO BID, TAB 07/28/18 Magnesium Hydroxide* (Milk Of Magnesia*) 400 Mg/5 Ml Oral.susp, 30 ML PO DAILY PRN for CHEST PAIN, ML 07/28/18 Metoprolol Tartrate* (Lopressor*) 50 Mg Tab, 50 MG PO DAILY, #60 TAB HOLD FOR SBP<110 OR HR<60 07/28/18 Atorvastatin Calcium (Atorvastatin Calcium) 10 Mg Tablet, 10 MG PO QHS, #30 TAB 07/28/18 Lidocaine (Lidocaine) 5 Gm Cream..g., 5 GM TP DAILY 07/28/18 Furosemide* (Lasix*) 20 Mg Tablet, 20 MG PO DAILY, TAB 07/28/18 Lactobacillus Rhamnosus* (Culturelle*) 1 Each Cap.sprink, 1 CAP PO DAILY, CAP 07/28/18 Ipratropium-Albuterol (Ipratropium-Albuterol) 0.5-3 Mg/3 Ml Ampul.neb, 3 ML INHALATION Q4 PRN for SHORTNESS OF BREATH, #30 VIAL 07/28/18 Gabapentin* (Gabapentin*) 100 Mg Capsule, 200 MG PO BID, #180 CAP 07/28/18 Folic Acid* (Folic Acid*) 1 Mg Tablet, 1 MG PO DAILY, TAB 07/28/18 Ferrous Sulfate* (Ferrous Sulfate*) 325 Mg Tabec, 325 MG PO TID, TAB 07/28/18 Estrogens Conjugated* (Premarin*) 0.45 Mg Tablet, 0.45 MG PO DAILY, TAB 07/28/18 Bisacodyl (Dulcolax) 10 Mg Supp.rect, 10 MG RC Q48, SUPP.RECT 07/28/18 Docusate Sodium* (Colace*) 100 Mg Capsule, 100 MG PO QHS PRN for CONSTIPATION, #60 CAP 07/28/18 Hydromorphone Hcl* (Dilaudid*) 2 Mg Tablet, 2 MG PO Q6H PRN for SEVERE PAIN LEVEL 7-10, TAB 07/28/18 Cyanocobalamin* (Vitamin B12*) 500 Mcg Tab, 500 MCG PO DAILY, TAB 07/28/18 Clonidine Hcl* (Clonidine Hcl*) 0.1 Mg Tab, 0.1 MG PO Q8, TAB 07/28/18 Clonazepam* (Clonazepam*) 0.5 Mg Tablet, 0.5 MG PO BID PRN for ANXIETY, TAB 07/28/18 Calcium Carbonate/Vitamin D3 ([place] 500+D Tablet) 1 Each Tablet, 1 EACH PO BID, TAB 07/28/18 Fluticasone/Vilanterol (Breo Ellipta 200-25 Mcg INH) 1 Each Blst.w.dev, 1 PUFF INHALATION DAILY, #1 INHALER 07/28/18 Lorazepam* (Lorazepam*) 0.5 Mg Tablet, 0.5 MG PO Q6 PRN for ANXIETY, TAB 07/28/18 Diphenhydramine Hcl* (Benadryl*) 25 Mg Cap, 25 MG PO Q8 PRN for PRN, CAP 07/28/18 Aspirin* (Aspirin* Chew) 81 Mg Tab.chew, 81 MG PO DAILY, TAB.CHEW 07/28/18 Ascorbic Acid* (Vitamin C*) 500 Mg Capsule.sa, 500 MG PO TID, CAP 07/28/18 Apixaban* (Eliquis*) 5 Mg Tablet, 5 MG PO BID, TAB 07/28/18 Hydrocortisone Acetate (Anusol-Hc) 25 Mg Supp.rect, 25 MG FL BID PRN for CON STIPATION, SUPP.RECT 07/28/18 Amiodarone Hcl* (Amiodarone Hcl*) 200 Mg Tablet, 200 MG PO BID, #30 TAB HOLD FOR SBP<110 OR HR<60 07/28/18 Medications Current Medications Vancomycin HCl (Vanco Iv Per Pharmacy) VANCOMYCIN PER PHARMACY PER PROTOCOL XX ; Start 07/28/18 at 17:30 Albuterol/ Ipratropium (Duoneb) 3 ml Q6H RESP THERAPY HHN Last administered on 08/02/18at 01:07; Admin Dose 3 ML; Start 07/28/18 at 20:00; Status Hold Calcium/Vitamin D (Oyster Shell/ Vit-D (500/200)) 1 tab BID PO Last administered on 08/06/18at 20:35; Admin Dose 1 TAB; Start 07/28/18 at 21:00 Clonazepam (Klonopin) 0.5 mg BID PRN PO ANXIETY Last administered on 08/04/18at 21:00; Admin Dose 0.5 MG; Start 07/28/18 at 21:00 Clonidine (Catapres) 0.1 mg TID PRN PO ELEVATED BLOOD PRESSURE Last administered on 07/29/18 16:54; Admin Dose 0.1 MG; Start 07/28/18 at 21:00 Hydromorphone HCl (Dilaudid) 2 mg Q4H PRN PO SEVERE PAIN LEVEL 7-10 Last administered on 08/01/18 23:34; Admin Dose 2 MG; Start 07/28/18 at 21:00 Docusate Sodium (Colace) 100 mg BID PRN PO CONSTIPATION; Start 07/28/18 at 21:00 Gabapentin (Neurontin) 200 mg BID PO Last administered on 08/06/18 20:35; Admin Dose 200 MG; Start 07/28/18 at 21:00 Metoprolol Tartrate (Lopressor) 25 mg BID PO Last administered on 08/06/18 20:34; Admin Dose 25 MG; Start 07/28/18 at 21:00 Magnesium Hydroxide (Milk Of Mag) 30 ml DAILY PRN PO CONSTIPATION; Start 07/28/18 at 21:00 Acetaminophen/ Hydrocodone Bitart ([place] (10/325)) 1 tab Q4H PRN PO MODERATE PAIN LEVEL 4-6 Last administered on 08/01/18 21:02; Admin Dose 1 TAB; Start 07/28/18 at 21:00 Carisoprodol (Soma) 350 mg BID PRN PO MUSCLE SPASMS; Start 07/28/18 at 21:00 Trazodone HCl (Desyrel) 50 mg HS PRN PO INSOMNIA Last administered on 07/29/18 20:29; Admin Dose 50 MG; Start 07/28/18 at 21:00 Ondansetron HCl (Zofran Inj) 4 mg Q6H PRN IV NAUSEA AND/OR VOMITING; Start 07/28/18 at 21:00 Methylprednisolone Sodium Succinate (Solu-Medrol) 40 mg DAILY IV Last administered on 08/06/18 08:14; Admin Dose 40 MG; Start 07/29/18 at 09:00 Ascorbic Acid (Vitamin C) 500 mg TID PO Last administered on 08/06/18 20:35; Admin Dose 500 MG; Start 07/29/18 at 09:00 Lorazepam (Ativan) 0.5 mg Q6H PRN PO ANXIETY Last administered on 1/30/19at 04:06; Admin Dose 0.5 MG; Start 07/29/18 at 20:30 Guaifenesin/ Dextromethorphan (Robitussin Dm Liquid Cup) 5 ml Q4H PRN PO COUGH Last administered on 08/01/18 16:32; Admin Dose 5 ML; Start 07/29/18 at 20:30 Diltiazem HCl 125 ml @ 5 mls/hr TITRATE IV Last administered on 07/30/18 09:40; Admin Dose 5 MLS/HR; Start 07/30/18 at 09:00; Status Hold Dronedarone (Multaq) 400 mg BID WITH MEALS PO Last administered on 08/06/18 16:36; Admin Dose 400 MG; Start 07/30/18 at 09:30 Propofol 100 ml @ 1.986 mls/ hr Q12H IV Last administered on 08/05/18 06:36; Admin Dose 11.916 MLS/HR; Start 08/02/18 at 10:00 Albuterol (Ventolin Hfa) 4 puff Q6H RESP THERAPY INH Last administered on 08/07/18 01:05; Admin Dose 4 PUFF; Start 08/02/18 at 14:00 Ipratropium [place] (Atrovent Hfa) 4 puff Q6H RESP THERAPY INH Last administered on 08/07/18 01:05; Admin Dose 4 PUFF; Start 08/02/18 at 14:00 Fluconazole/ Sodium Chloride 50 ml @ 50 mls/hr Q24H IVPB Last administered on 08/06/18 16:36; Admin Dose 50 MLS/HR; Start 08/02/18 at 17:00 Acetaminophen (Tylenol Liquid) 650 mg Q6H PRN GTB MILD PAIN (1-3) OR TEMPERATURE; Start 08/03/18 at 09:30 Docusate Sodium (Colace Liquid Cup) 100 mg BID PRN GTB CONSTIPATION,,,,; Start 08/03/18 at 09:30 Vancomycin/Sodium Chloride 250 ml @ 125 mls/hr Q24H IVPB Last administered on 08/06/18at 10:22; Admin Dose 125 MLS/HR; Start 08/04/18 at 10:00 IV Flush (NS 10 ml) 10 ml PRN PRN IV IV PROTOCOL; Start 08/03/18 at 10:30 Fentanyl 100 ml @ 2.5 mls/hr TITRATE IV Last administered on 08/06/18at 21:53; Admin Dose 10 MLS/HR; Start 08/04/18 at 09:00 Lansoprazole (Prevacid) 30 mg DAILY@06 GTB Last administered on 08/07/18at 05:17; Admin Dose 30 MG; Start 08/05/18 at 06:00 Midazolam HCl 50 ml @ 1 mls/hr TITRATE IV Last administered on 08/06/18at 21:48; Admin Dose 5 MLS/HR; Start 08/05/18 at 12:00 Norepinephrine 250 ml @ 1.875 mls/ hr TITRATE IV Last administered on 08/05/18at 13:00; Admin Dose 30 MLS/HR; Start 08/05/18 at 13:00 Sodium Chloride 1,000 ml @ 50 mls/hr Q20H IV Last administered on 08/07/18at 03:20; Admin Dose 50 MLS/HR; Start 08/06/18 at 08:00 Levofloxacin/ Dextrose 100 ml @ 100 mls/hr Q24H IVPB Last administered on 08/06/18at 09:15; Admin Dose 100 MLS/HR; Start 08/06/18 at 08:30 Meropenem/Sodium Chloride 50 ml @ 100 mls/hr Q12 IVPB Last administered on 08/06/18at 20:34; Admin Dose 100 MLS/HR; Start 08/06/18 at 21:00 Miscellaneous Information (*Rx Drug Level Order Reminder*) VANCO TROUGH 08/07 @ 0,900 ONCE ONCE XX ; Start 08/07/18 at 09:00; Stop 08/07/18 at 09:01 Phenylephrine HCl 80 mg/Dextrose 250 ml @ 18.75 mls/ hr TITRATE IV Last administered on 08/06/18at 19:44; Admin Dose 18.75 MLS/HR; Start 08/06/18 at 15:30 Assessment/Plan Hospital Course (Demo Recall) 1. Hypoxemic respiratory failure: Status post intubation on the vent now 2. Pulmonary fibrosis/severe COPD 3. Elevated BNP most likely secondary to above and significant pulmonary hypertension 4. paroxysmal atrial fibrillation; currently converted back to normal sinus rhythm 5. Encephalopathy 6. pneumonia 7. History of recent fall and hip fracture status post surgery 8. Anemia and OB positive stool 9. Lactic acidosis 10. Hypertension 11. Pulmonary hypertension 12.shock. sepsis 13. Acute encephalopathy has a letter of consciousness 14. Thrombocytopenia Recommendations: off the Eliquis given her OB positive stool as well as thrombocytopenia and worsening anemia Continue with vent support. Antibiotic management as per internal medicine We will continue to monitor on telemetry Correct electrolytes as needed Transfusions as needed off the amiodarone given concern about her severe pulmonary disease and pulmonary fibrosis. pt was started on Multaq . TSH is within normal limits Given her pulmonary hypertension and was started on Revatio but she is too hypotensive to tolerate and has been stopped now. Continue with vent support. I will order a CT of the head to be taken once patient is stable to go there. . Thank you for his referral. We will continue to follow along with you DAYRON ROGERS MD [facility] DAYRON ROGERS MD Aug 07, 2018 06:52
--- NOTE | 2018-08-07 08:05 | CONS ---
Assessment/Plan Assessment/Plan Assessment/Plan (Daily) Ventilator setting; AC of 22, tidal volume 500, PEEP of 5, 70% FiO2. Patient is currently on fentanyl 50 mics per hour, phenylephrine 300 mics per minute, Versed 5 mg/h. Patient also is on tube feeding. ABG showing persistent hypercapnia, and compensated. Assessment recommendations; 1. Patient admitted for severe bilateral pneumonia with ARDS. 2. Persistent hypercapnia. 3. Prior history of tracheostomy with decannulation. 4. History of pancreatic mass, apparently nonmalignant. 5. History of depression. 6. History of systemic and pulmonary hypertension. 7. Severe thrombocytopenia. However no overt bleeding noted. 8. Mild anemia. 10. Increase in serum creatinine, patient has not been on a diuretic regimen. 11. Mild hypernatremia. 12. History of neuropathy. Continue current supportive care. Ventilator settings have been adjusted. Rate increased to 24, PEEP increased to 10. Obtain follow-up chest x-ray in 24 hours. Review today's chest x-ray once performed. Increase free water to 250 mL every 4 hours from 200 every 4 hours for correction of intravascular volume depletion as well as hypernatremia. Prognosis is guarded. 35 minutes of critical care time was spent evaluating the patient. Consultation Date/Type/Reason Admit Date/Time Jul 28, 2018 at 18:16 Initial Consult Date 07/28/18 Type of Consult Pulmonary Requesting Provider: ABDIAS STAPLES MD Date/Time of Note DATE: 08/07/18 TIME: 08:00 24 HR Interval Summary Free Text/Dictation Patient's condition remains very critical. Remains persistently hypoxemic and hypotensive. General exam; elderly female, orally intubated, sedated, currently no distress. Exam/Review of Systems Exam Vitals Vital Signs Date Temp Pulse Resp B/P (MAP) Pulse Ox O2 O2 Flow FiO2 Time Delivery Rate 08/07/18 64 22 104/38 07:00 (60) 08/07/18 Mechanical 06:30 Ventilator 08/07/18 98.8 98 06:00 08/07/18 70 05:00 Intake and Output 08/06/18 08/06/18 08/07/18 1515:00 23:00 07:00 IntakeIntake Total 1950.0 ml 1170 ml 620 ml OutputOutput Total 565 ml 215 ml 390 ml BalanceBalance 1385.0 ml 955 ml 230 ml Exam H EENT exam; supple neck, no JVD. No lymphadenopathy. Midline trachea. No thyromegaly. Orally intubated. Patient is edentulous. There is a well-healed tracheostomy scar. Pupils are small bilaterally. Orogastric tube in place. Chest exam; bilateral crackles. S1-S2 audible, no murmurs. Regular rhythm. Abdomen exam; soft, scaphoid. Bowel sounds audible. There is a well-healed epigastric scar. Extremity exam; peripheral edema. Patient does have multiple ecchymosis. [employer] exam; patient is sedated. Results Result Diagram: 08/07/18 0430 08/07/18 0430 Results 24hrs Laboratory Tests Test 08/07/18 04:30 08/07/18 07:27 White Blood Count 17.6 H Red Blood Count 2.46 L Hemoglobin 7.7 L Hematocrit 26.3 L Mean Corpuscular Volume 106.9 H Mean Corpuscular Hemoglobin 31.3 Mean Corpuscular Hemoglobin Concent 29.3 L Red Cell Distribution Width 19.9 H Platelet Count 39 #L Mean Platelet Volume 13.4 H Immature Granulocytes % 1.400 H Neutrophils % 88.1 H Lymphocytes % 7.4 L Monocytes % 2.9 Eosinophils % 0.1 Basophils % 0.1 Nucleated Red Blood Cells % 0.2 H Immature Granulocytes # 0.250 H Neutrophils # 15.5 H Lymphocytes # 1.3 Monocytes # 0.5 Eosinophils # 0.0 Basophils # 0.0 Nucleated Red Blood Cells # 0.0 Sodium Level 146 H Potassium Level 5.4 H Chloride Level 111 H Carbon Dioxide Level 25 Anion Gap 10 Blood Urea Nitrogen 61 H Creatinine 1.20 H Est Glomerular Filtrat Rate mL/min Glucose Level 126 Calcium Level 8.5 Phosphorus Level 3.3 Magnesium Level 2.3 Blood Gas Specimen Source Blood arterial Arterial Blood Date Drawn 08/07/2018 7:37:01 AM Arterial Blood pH (Temp corrected) 7.240 *L Arterial Blood pCO2 (Temp correct) 56.7 H Arterial Blood pO2 (Temp corrected) 75.1 L Arterial Blood HCO3 23.8 Arterial Blood Base Excess -3.8 L Arterial Blood Oxygen Saturation 93.9 L Vick Test ACCEPTAB Arterial Blood Gas Puncture Site Right Radial Arterial Blood Carboxyhemoglobin 0.7 Arterial Blood Methemoglobin 0 Blood Gas A-a O2 Differential 363.1 H Oxyhemoglobin Percent 93.2 Blood Gas Temperature 37.0 Blood Gas Respiration Rate 22.0 Blood Gas Actual Respiration Rate 22 Blood Gas Modality TRACH COLLAR FiO2 70.0 Blood Gas Tidal Volume 500.0 Blood Gas Low PEEP Setting 5.0 Blood Gas Critical Value Read Back MINO GARAY Blood Gas Notified Whom TM Blood Gas Notified Time 08/07/2018 7:49:00 AM Medications Medication Current Medications Vancomycin HCl (Vanco Iv Per Pharmacy) VANCOMYCIN PER PHARMACY PER PROTOCOL XX ; Start 07/28/18 at 17:30 Albuterol/ Ipratropium (Duoneb) 3 ml Q6H RESP THERAPY HHN Last administered on 08/02/18 01:07; Admin Dose 3 ML; Start 07/28/18 at 20:00; Status Hold Calcium/Vitamin D (Oyster Shell/ Vit-D (500/200)) 1 tab BID PO Last administered on 08/06/18 20:35; Admin Dose 1 TAB; Start 07/28/18 at 21:00 Clonazepam (Klonopin) 0.5 mg BID PRN PO ANXIETY Last administered on 08/04/18at 21:00; Admin Dose 0.5 MG; Start 07/28/18 at 21:00 Clonidine (Catapres) 0.1 mg TID PRN PO ELEVATED BLOOD PRESSURE Last administered on 07/29/18 16:54; Admin Dose 0.1 MG; Start 07/28/18 at 21:00 Hydromorphone HCl (Dilaudid) 2 mg Q4H PRN PO SEVERE PAIN LEVEL 7-10 Last administered on 08/01/18 23:34; Admin Dose 2 MG; Start 07/28/18 at 21:00 Docusate Sodium (Colace) 100 mg BID PRN PO CONSTIPATION; Start 07/28/18 at 21:00 Gabapentin (Neurontin) 200 mg BID PO Last administered on 08/06/18at 20:35; Admin Dose 200 MG; Start 07/28/18 at 21:00 Metoprolol Tartrate (Lopressor) 25 mg BID PO Last administered on 08/06/18 20:34; Admin Dose 25 MG; Start 07/28/18 at 21:00 Magnesium Hydroxide (Milk Of Mag) 30 ml DAILY PRN PO CONSTIPATION; Start 07/28/18 at 21:00 Acetaminophen/ Hydrocodone Bitart ([place] (10/325)) 1 tab Q4H PRN PO MODERATE PAIN LEVEL 4-6 Last administered on 08/01/18 21:02; Admin Dose 1 TAB; Start 07/28/18 at 21:00 Carisoprodol (Soma) 350 mg BID PRN PO MUSCLE SPASMS; Start 07/28/18 at 21:00 Trazodone HCl (Desyrel) 50 mg HS PRN PO INSOMNIA Last administered on 07/29/18 20:29; Admin Dose 50 MG; Start 07/28/18 at 21:00 Ondansetron HCl (Zofran Inj) 4 mg Q6H PRN IV NAUSEA AND/OR VOMITING; Start 07/28/18 at 21:00 Methylprednisolone Sodium Succinate (Solu-Medrol) 40 mg DAILY IV Last ad ministered on 08/06/18 08:14; Admin Dose 40 MG; Start 07/29/18 at 09:00 Ascorbic Acid (Vitamin C) 500 mg TID PO Last administered on 08/06/18 20:35; Admin Dose 500 MG; Start 07/29/18 at 09:00 Lorazepam (Ativan) 0.5 mg Q6H PRN PO ANXIETY Last administered on 08/05/18 04:06; Admin Dose 0.5 MG; Start 07/29/18 at 20:30 Guaifenesin/ Dextromethorphan (Robitussin Dm Liquid Cup) 5 ml Q4H PRN PO COUGH Last administered on 08/01/18 16:32; Admin Dose 5 ML; Start 07/29/18 at 20:30 Diltiazem HCl 125 ml @ 5 mls/hr TITRATE IV Last administered on 07/30/18 09:40; Admin Dose 5 MLS/HR; Start 07/30/18 at 09:00; Status Hold Dronedarone (Multaq) 400 mg BID WITH MEALS PO Last administered on 08/06/18 16:36; Admin Dose 400 MG; Start 07/30/18 at 09:30 Propofol 100 ml @ 1.986 mls/ hr Q12H IV Last administered on 08/05/18 06:36; Admin Dose 11.916 MLS/HR; Start 08/02/18 at 10:00 Albuterol (Ventolin Hfa) 4 puff Q6H RESP THERAPY INH Last administered on 08/07/18 01:05; Admin Dose 4 PUFF; Start 08/02/18 at 14:00 Ipratropium [place] (Atrovent Hfa) 4 puff Q6H RESP THERAPY INH Last administered on 08/07/18 01:05; Admin Dose 4 PUFF; Start 08/02/18 at 14:00 Fluconazole/ Sodium Chloride 50 ml @ 50 mls/hr Q24H IVPB Last administered on 08/06/18at 16:36; Admin Dose 50 MLS/HR; Start 08/02/18 at 17:00 Acetaminophen (Tylenol Liquid) 650 mg Q6H PRN GTB MILD PAIN (1-3) OR TEMPERATURE; Start 08/03/18 at 09:30 Docusate Sodium (Colace Liquid Cup) 100 mg BID PRN GTB CONSTIPATION,,,,; Start 08/03/18 at 09:30 Vancomycin/Sodium Chloride 250 ml @ 125 mls/hr Q24H IVPB Last administered on 08/06/18at 10:22; Admin Dose 125 MLS/HR; Start 08/04/18 at 10:00 IV Flush (NS 10 ml) 10 ml PRN PRN IV IV PROTOCOL; Start 08/03/18 at 10:30 Fentanyl 100 ml @ 2.5 mls/hr TITRATE IV Last administered on 08/06/18at 21:53; Admin Dose 10 MLS/HR; Start 08/04/18 at 09:00 Lansoprazole (Prevacid) 30 mg DAILY@06 GTB Last administered on 08/07/18 05:17; Admin Dose 30 MG; Start 08/05/18 at 06:00 Midazolam HCl 50 ml @ 1 mls/hr TITRATE IV Last administered on 08/06/18 21:48; Admin Dose 5 MLS/HR; Start 08/05/18 at 12:00 Norepinephrine 250 ml @ 1.875 mls/ hr TITRATE IV Last administered on 08/05/18 13:00; Admin Dose 30 MLS/HR; Start 08/05/18 at 13:00 Sodium Chloride 1,000 ml @ 50 mls/hr Q20H IV Last administered on 08/07/18 03:20; Admin Dose 50 MLS/HR; Start 08/06/18 at 08:00 Levofloxacin/ Dextrose 100 ml @ 100 mls/hr Q24H IVPB Last administered on 08/06/18at 09:15; Admin Dose 100 MLS/HR; Start 08/06/18 at 08:30 Meropenem/Sodium Chloride 50 ml @ 100 mls/hr Q12 IVPB Last administered on 08/06/18at 20:34; Admin Dose 100 MLS/HR; Start 08/06/18 at 21:00 Miscellaneous Information (*Rx Drug Level Order Reminder*) VANCO TROUGH 08/07 @ 0,900 ONCE ONCE XX ; Start 08/07/18 at 09:00; Stop 08/07/18 at 09:01 Phenylephrine HCl 80 mg/Dextrose 250 ml @ 18.75 mls/ hr TITRATE IV Last administered on 08/06/18at 19:44; Admin Dose 18.75 MLS/HR; Start 08/06/18 at 15:30 DEJUAN OSULLIVAN Aug 07, 2018 08:05
[2018-08-07] MEDS: GABAPENTIN 100 MG CAP PO SCH ×2 (08:07→20:53)
[2018-08-07] MEDS: ASCORBIC ACID 500 MG TAB PO SCH ×3 (08:07→20:54)
[2018-08-07] MEDS: CALCIUM/VITAMIN D (500/200) TAB PO SCH ×2 (08:07→20:54)
[2018-08-07] MEDS: DRONEDARONE HYDROCHLORIDE 400 MG TAB PO SCH ×2 (08:07→16:41)
[2018-08-07] MEDS: LEVOFLOXACIN 500MG/D5W (PMX) 100 ML IVPB SCH (08:08)
[2018-08-07] MEDS: PHENYLephrine 80 MG in DEXTROSE 5% 242 ML IV SCH ×2 (08:08→18:56)
[2018-08-07] MEDS: METOPROLOL 25 MG TAB PO SCH ×2 (08:09→21:00)
[2018-08-07] MEDS: PROPOFOL 100 ML IV SCH ×2 (08:09→22:00)
[2018-08-07] MEDS: MIDAZOLAM (DRIP) 50 mg/50 mL 50 ML IV SCH ×2 (08:36→18:52)
[2018-08-07] MEDS: MEROPENEM 1 GM/50ML(PMX) 50 ML IVPB SCH ×2 (09:22→20:53)
[2018-08-07] MEDS: METHYLPREDNISOLONE 40 MG INJ IV SCH (09:27)
--- NOTE | 2018-08-07 09:43 | PN ---
DATE: 08/07/2018 SUBJECTIVE: The patient is currently on pressor support, IV fluids. Urinary output has been adequat e. No other events noted. OBJECTIVE: VITAL SIGNS: Blood pressure is 104/38, respirations 22, pulse 64, temperature 98.8. HEENT: Head is normocephalic. NECK: Supple. HEART: Regular rate. LUNGS: Show diminished breath sounds at the base. ABDOMEN: Soft, nontender to palpation without rebound or guarding. EXTREMITIES: Negative for clubbing, cyanosis, no edema. DERMATOLOGIC: No rashes. MUSCULOSKELETAL: No joint effusion. NEUROLOGIC: No change in exam. MEDICATIONS: Reviewed. LABORATORY DATA: Shows white count 17.7, hemoglobin 7.7, platelet count of 39. Sodium 146, potassiu m 5.4, chloride 111, BUN 61, creatinine 1.20. ASSESSMENT AND PLAN: 1. Nonoliguric acute kidney injury with unknown baseline creatinine. Etiology of acute kidney injur y is secondary to sepsis, hemodynamics, possible acute tubular necrosis. Renal function has declined in the last 1-2 days. At this point, would continue current treatment plan. Continue pressor suppo rt. Continue IV hydration. Continue antibiotic therapy. We will monitor closely. 2. Hyperkalemia. Etiology is likely secondary to acute kidney injury in conjunction with high potas sium load. Plan is to change tube feeding to Nepro. Will give the patient a course of Kayexalate. Continue to monitor potassium levels and renal function closely. 3. Anemia. Continue to monitor hemoglobin and hematocrit levels. 4. Hypernatremia. The patient has a free water deficit of approximately 2 liters. We will continue free water flushes. Continue hypertonic fluid. 5. Volume overload, possibly from capillary leak. Continue to monitor. Avoid diuretic therapy at t his time. 6. Septic shock secondary to pneumonia, bacteremia. The patient remains on pressor support, IV flui ds and IV hydration. Continue to monitor. 7. Ventilator dependent respiratory failure. Vent settings and ABG was reviewed. Continue to monit or. 8. Encephalopathy, etiology is toxic metabolic. Continue to monitor. 9. Peripheral vascular disease. 10. Status post hip fracture. Please note I spent over 30 minutes of critical care time with this patient. Dictated By: GENEVIEVE BERNSTEIN/MARLENY Conf#: [id number] DID#: [id number] CC: ABDIAS STAPLES MD;*EndCC*
[2018-08-07] MEDS: VANCOMYCIN 750 MG (PMX) 250 ML IVPB SCH (11:09)
--- NOTE | 2018-08-07 13:59 | CONS ---
Assessment/Plan Assessment/Plan Hospital Course (Demo Recall) Patient remains intubated, on Matt-Synephrine drip with a T-max of 100.5. WBC 17.6 platelets 39 BUN 60 creatinine 1.32 okay Chest x-ray this morning revealed stable patchy infiltrates throughout both lungs with potential small pleural effusions. Involving: Endotracheal tube and NG tube Landis catheter PICC line Antimicrobials: Merrem, vancomycin, fluconazole Allergies: Penicillin, tetracycline Physical examination: This is a fragile chronically ill-appearing wasted elderly woman who is in no distress. Head atraumatic normocephalic sclera nonicteric. Neck is supple. Chest rise symmetrical breath sounds diminished bases. Heart: S1-S2. Abdomen soft bowel sounds present extremities without cyanosis. Assessment: 1. Severe sepsis, present on admission 2. Acute on chronic respiratory failure, status post intubation 08/02/18 3. Healthcare associated pneumonia/ARDS 4. Coag negative staph bacteremia, possibly contaminant 5. Anemia with progressive thrombocytopenia 6. Leukocytosis likely steroid-induced 5. Peripheral arterial disease status post stent 6. Pancreatic head mass, patient is following with a specialist yearly 7. Recent right hip fracture status post surgical intervention Plan: Doing worse, started on pressors, chest x-ray without significant changes, continue abx, vent management per pulmonary, prognosis guarded Consultation Date/Type/Reason Admit Date/Time Jul 28, 2018 at 18:16 Initial Consult Date 07/28/18 Type of Consult id Requesting Provider: ABDIAS STAPLES MD Date/Time of Note DATE: 08/07/18 TIME: 13:57 Exam/Review of Systems Exam Vitals Vital Signs Date Temp Pulse Resp B/P (MAP) Pulse Ox O2 O2 Flow FiO2 Time Delivery Rate 08/07/18 98.3 63 24 111/48 97 Mechanical 12:00 (69) Ventilator 08/07/18 70 11:20 Intake and Output 08/06/18 08/06/18 08/07/18 1515:00 23:00 07:00 IntakeIntake Total 1950.0 ml 1170 ml 758.75 ml OutputOutput Total 565 ml 215 ml 420 ml BalanceBalance 1385.0 ml 955 ml 338.75 ml Results Result Diagram: 08/07/18 0430 08/07/18 0859 Results 24hrs Laboratory Tests Test 08/07/18 04:30 08/07/18 07:27 08/07/18 08:59 08/07/18 10:10 White Blood 17.6 H Count Red Blood Count 2.46 L Hemoglobin 7.7 L Hematocrit 26.3 L Mean Corpuscular 106.9 H Volume Mean Corpuscular 31.3 Hemoglobin Mean Corpuscular 29.3 L Hemoglobin Sari nt Red Cell 19.9 H Distribution Width Platelet Count 39 #L Mean Platelet 13.4 H Volume Immature 1.400 H Granulocytes % Neutrophils % 88.1 H Lymphocytes % 7.4 L Monocytes % 2.9 Eosinophils % 0.1 Basophils % 0.1 Nucleated Red 0.2 H Blood Cells % Immature 0.250 H Granulocytes # Neutrophils # 15.5 H Lymphocytes # 1.3 Monocytes # 0.5 Eosinophils # 0.0 Basophils # 0.0 Nucleated Red 0.0 Blood Cells # Sodium Level 146 H 140 Potassium Level 5.4 H 5.1 Chloride Level 111 H 111 H Carbon Dioxide 25 26 Level Anion Gap 10 3 L Blood Urea 61 H 60 H Nitrogen Creatinine 1.20 H 1.32 H Est Glomerular Filtrat Rate mL/min Glucose Level 126 187 Calcium Level 8.5 8.3 L Phosphorus Level 3.3 Magnesium Level 2.3 Blood Gas Blood arterial Blood arterial Specimen Source Arterial Blood 08/07/2018 7:37:01 08/07/2018 10:12:0 Date Drawn AM 2 AM Arterial Blood 7.240 *L 7.265 *L pH (Temp corrected) Arterial Blood 56.7 H 51.7 H pCO2 (Temp correct) Arterial Blood 75.1 L 78.3 L pO2 (Temp corrected) Arterial Blood 23.8 22.9 HCO3 Arterial Blood -3.8 L -4.1 L Base Excess Arterial Blood 93.9 L 95.0 Oxygen Saturatio n Vick Test ACCEPTAB ACCEPTAB Arterial Blood Right Radial Right Radial Gas Puncture Site Arterial 0.7 0.5 Blood Carboxyhem oglobin Arterial Blood 0 0.1 Methemoglobin Blood Gas A-a O2 363.1 H 365.2 H Differential Oxyhemoglobin 93.2 94.4 Percent Blood Gas 37.0 37.0 Temperature Blood Gas 22.0 24.0 Respiration Rate Blood Gas Actual 22 24 Respiration Rate Blood Gas TRACH COLLAR VENT - AC Modality FiO2 70.0 70.0 Blood Gas Tidal 500.0 500.0 Volume Blood Gas Low 5.0 10.0 PEEP Setting Blood Gas MINO PEREZ RN Critical Value Read Back Blood Gas TM TM Notified Whom Blood Gas 08/07/2018 7:49:00 08/07/2018 10:23:2 Notified Time AM 0 AM Vancomycin Level 19.8 Trough Medications Medication Current Medications Vancomycin HCl (Vanco Iv Per Pharmacy) VANCOMYCIN PER PHARMACY PER PROTOCOL XX ; Start 07/28/18 at 17:30 Albuterol/ Ipratropium (Duoneb) 3 ml Q6H RESP THERAPY HHN Last administered on 08/02/18 01:07; Admin Dose 3 ML; Start 07/28/18 at 20:00; Status Hold Calcium/Vitamin D (Oyster Shell/ Vit-D (500/200)) 1 tab BID PO Last administered on 08/07/18 08:07; Admin Dose 1 TAB; Start 07/28/18 at 21:00 Clonazepam (Klonopin) 0.5 mg BID PRN PO ANXIETY Last administered on 08/04/18 21:00; Admin Dose 0.5 MG; Start 07/28/18 at 21:00 Clonidine (Catapres) 0.1 mg TID PRN PO ELEVATED BLOOD PRESSURE Last administered on 07/29/18 16:54; Admin Dose 0.1 MG; Start 07/28/18 at 21:00 Hydromorphone HCl (Dilaudid) 2 mg Q4H PRN PO SEVERE PAIN LEVEL 7-10 Last administered on 08/01/18 23:34; Admin Dose 2 MG; Start 07/28/18 at 21:00 Docusate Sodium (Colace) 100 mg BID PRN PO CONSTIPATION; Start 07/28/18 at 21:00 Gabapentin (Neurontin) 200 mg BID PO Last administered on 08/07/18 08:07; Admin Dose 200 MG; Start 07/28/18 at 21:00 Metoprolol Tartrate (Lopressor) 25 mg BID PO Last administered on 08/06/18 20:34; Admin Dose 25 MG; Start 07/28/18 at 21:00 Magnesium Hydroxide (Milk Of Mag) 30 ml DAILY PRN PO CONSTIPATION; Start 07/28/18 at 21:00 Acetaminophen/ Hydrocodone Bitart ([place] (10/325)) 1 tab Q4H PRN PO MODERATE PA IN LEVEL 4-6 Last administered on 08/01/18 21:02; Admin Dose 1 TAB; Start 07/28/18 at 21:00 Carisoprodol (Soma) 350 mg BID PRN PO MUSCLE SPASMS; Start 07/28/18 at 21:00 Trazodone HCl (Desyrel) 50 mg HS PRN PO INSOMNIA Last administered on 07/29/18 20:29; Admin Dose 50 MG; Start 07/28/18 at 21:00 Ondansetron HCl (Zofran Inj) 4 mg Q6H PRN IV NAUSEA AND/OR VOMITING; Start 07/28/18 at 21:00 Methylprednisolone Sodium Succinate (Solu-Medrol) 40 mg DAILY IV Last administered on 08/07/18 09:27; Admin Dose 40 MG; Start 07/29/18 at 09:00 Ascorbic Acid (Vitamin C) 500 mg TID PO Last administered on 08/07/18 12:30; Admin Dose 500 MG; Start 07/29/18 at 09:00 Lorazepam (Ativan) 0.5 mg Q6H PRN PO ANXIETY Last administered on 08/05/18 04:06; Admin Dose 0.5 MG; Start 07/29/18 at 20:30 Guaifenesin/ Dextromethorphan (Robitussin Dm Liquid Cup) 5 ml Q4H PRN PO COUGH Last administered on 08/01/18 16:32; Admin Dose 5 ML; Start 07/29/18 at 20:30 Diltiazem HCl 125 ml @ 5 mls/hr TITRATE IV Last administered on 07/30/18 09:40; Admin Dose 5 MLS/HR; Start 07/30/18 at 09:00; Status Hold Dronedarone (Multaq) 400 mg BID WITH MEALS PO Last administered on 08/07/18 08:07; Admin Dose 400 MG; Start 07/30/18 at 09:30 Propofol 100 ml @ 1.986 mls/ hr Q12H IV Last administered on 08/05/18 06:36; Admin Dose 11.916 MLS/HR; Start 08/02/18 at 10:00 Albuterol (Ventolin Hfa) 4 puff Q6H RESP THERAPY INH Last administered on 08/07/18 10:49; Admin Dose 4 PUFF; Start 08/02/18 at 14:00 Ipratropium [place] (Atrovent Hfa) 4 puff Q6H RESP THERAPY INH Last administered on 08/07/18at 10:49; Admin Dose 4 PUFF; Start 08/02/18 at 14:00 Fluconazole/ Sodium Chloride 50 ml @ 50 mls/hr Q24H IVPB Last administered on 08/06/18at 16:36; Admin Dose 50 MLS/HR; Start 08/02/18 at 17:00 Acetaminophen (Tylenol Liquid) 650 mg Q6H PRN GTB MILD PAIN (1-3) OR TEMPERATURE; Start 08/03/18 at 09:30 Docusate Sodium (Colace Liquid Cup) 100 mg BID PRN GTB CONSTIPATION,,,,; Start 08/03/18 at 09:30 IV Flush (NS 10 ml) 10 ml PRN PRN IV IV PROTOCOL; Start 08/03/18 at 10:30 Fentanyl 100 ml @ 2.5 mls/hr TITRATE IV Last administered on 08/06/18at 21:53; Admin Dose 10 MLS/HR; Start 08/04/18 at 09:00 Lansoprazole (Prevacid) 30 mg DAILY@06 GTB Last administered on 08/07/18 05:17; Admin Dose 30 MG; Start 08/05/18 at 06:00 Midazolam HCl 50 ml @ 1 mls/hr TITRATE IV Last administered on 08/07/18 08:36; Admin Dose 5 MLS/HR; Start 08/05/18 at 12:00 Norepinephrine 250 ml @ 1.875 mls/ hr TITRATE IV Last administered on 9at 13:00; Admin Dose 30 MLS/HR; Start 08/05/18 at 13:00 Sodium Chloride 1,000 ml @ 100 mls/hr Q10H IV Last administered on 08/07/18 03:20; Admin Dose 50 MLS/HR; Start 08/06/18 at 08:00 Meropenem/Sodium Chloride 50 ml @ 100 mls/hr Q12 IVPB Last administered on 08/07/18 09:22; Admin Dose 100 MLS/HR; Start 08/06/18 at 21:00 Phenylephrine HCl 80 mg/Dextrose 250 ml @ 18.75 mls/ hr TITRATE IV Last administered on 08/07/18at 08:08; Admin Dose 18.75 MLS/HR; Start 08/06/18 at 15:30 Vancomycin/Sodium Chloride 250 ml @ 125 mls/hr Q36H IVPB ; Start 08/08/18 at 23:00 Levofloxacin/ Dextrose 50 ml @ 50 mls/hr DAILY IVPB ; Start 08/08/18 at 09:00 ANDREW SMITH NP Aug 07, 2018 13:59
[2018-08-07] MEDS: FENTAnyl (DRIP) 1000 mcg/100mL 100 ML IV SCH (16:42)
[2018-08-07] MEDS: FLUCONAZOLE 100 MG/50 ML (PMX) 50 ML IVPB SCH (16:49)
--- NOTE | 2018-08-07 19:26 | PN ---
Date/Time of Note Date/Time of Note DATE: 08/07/18 TIME: 19:24 Assessment/Plan VTE Prophylaxis Risk score (from [facility])>0 risk: 9 SCD applied (from [facility]): Yes Pharmacological prophylaxis: other Lines/Catheters IV Catheter Type (from [facility]): PICC Line Central line still needed: Yes Urinary Cath still in place: Yes Reason Cath still needed: urinary retention Assessment/Plan Assessment/Plan - Acute hypoxemic respiratory failure due to healthcare-acquired pneumonia/ ARDS. Continue ventilatory support, steroids. from pulmonary standpoint. - Anemia of acute blood loss secondary to nosebleed admission, resolved. status post blood transfusion, continue to monitor hemoglobin and hematocrit. - Sepsis with gram-positive bacteremia. Continue antibiotics per ID. Dr. Brown is following in infection disease consultation. - Bilateral pulmonary fibrosis. Continue supplemental oxygen and symptomatic treatment with steroids. - Chronic obstructive pulmonary disease. Continue DuoNeb and steroids. - Nonobstructive coronary artery disease as per cardiac catheterization in 2013. Dr. Frost is following from cardiac standpoint. - Paroxysmal atrial fibrillation. Patient had an episode of atrial fibrillation with rapid ventricular response and was on Cardizem drip, currently in sinus rhythm. - Hypertension. Continue metoprolol and Lasix. p.r.n. clonidine. - Peripheral artery disease, status post stent. - Dyslipidemia. Continue Lipitor. - MARQUES, Dr. Salazar from nephrology standpoint. - Recent right hip fracture, status post surgery. - Pancreatic head mass. As per patient, she has been going to a specialist every year for followup. - Anxiety and depression, continue Klonopin and Prozac. Critical care time spent more than 35 minutes. Further recommendations based on clinical course. Plan of care discussed with Dr. Pack. Result Diagram: 08/07/18 0430 08/07/18 0859 Results 24hrs Laboratory Tests Test 08/07/18 04:30 08/07/18 07:27 08/07/18 08:59 08/07/18 10:10 White Blood 17.6 H Count Red Blood Count 2.46 L Hemoglobin 7.7 L Hematocrit 26.3 L Mean Corpuscular 106.9 H Volume Mean Corpuscular 31.3 Hemoglobin Mean Corpuscular 29.3 L Hemoglobin Sari nt Red Cell 19.9 H Distribution Width Platelet Count 39 #L Mean Platelet 13.4 H Volume Immature 1.400 H Granulocytes % Neutrophils % 88.1 H Lymphocytes % 7.4 L Monocytes % 2.9 Eosinophils % 0.1 Basophils % 0.1 Nucleated Red 0.2 H Blood Cells % Immature 0.250 H Granulocytes # Neutrophils # 15.5 H Lymphocytes # 1.3 Monocytes # 0.5 Eosinophils # 0.0 Basophils # 0.0 Nucleated Red 0.0 Blood Cells # Sodium Level 146 H 140 Potassium Level 5.4 H 5.1 Chloride Level 111 H 111 H Carbon Dioxide 25 26 Level Anion Gap 10 3 L Blood Urea 61 H 60 H Nitrogen Creatinine 1.20 H 1.32 H Est Glomerular Filtrat Rate mL/min Glucose Level 126 187 Calcium Level 8.5 8.3 L Phosphorus Level 3.3 Magnesium Level 2.3 Blood Gas Blood arterial Blood arterial Specimen Source Arterial Blood 08/07/2018 7:37:01 08/07/2018 10:12:0 Date Drawn AM 2 AM Arterial Blood 7.240 *L 7.265 *L pH (Temp corrected) Arterial Blood 56.7 H 51.7 H pCO2 (Temp correct) Arterial Blood 75.1 L 78.3 L pO2 (Temp corrected) Arterial Blood 23.8 22.9 HCO3 Arterial Blood -3.8 L -4.1 L Base Excess Arterial Blood 93.9 L 95.0 Oxygen Saturatio n Vick Test ACCEPTAB ACCEPTAB Arterial Blood Right Radial Right Radial Gas Puncture Site Arterial 0.7 0.5 Blood Carboxyhem oglobin Arterial Blood 0 0.1 Methemoglobin Blood Gas A-a O2 363.1 H 365.2 H Differential Oxyhemoglobin 93.2 94.4 Percent Blood Gas 37.0 37.0 Temperature Blood Gas 22.0 24.0 Respiration Rate Blood Gas Actual 22 24 Respiration Rate Blood Gas TRACH COLLAR VENT - AC Modality FiO2 70.0 70.0 Blood Gas Tidal 500.0 500.0 Volume Blood Gas Low 5.0 10.0 PEEP Setting Blood Gas MINO PEREZ RN Critical Value Read Back Blood Gas TM TM Notified Whom Blood Gas 08/07/2018 7:49:00 08/07/2018 10:23:2 Notified Time AM 0 AM Vancomycin Level 19.8 Trough Subjective 24 Hr Interval Summary Free Text/Dictation remains intubated; on pressors dw staff Subjective hx not possible: pt non-verbal, pt critical status Constitutional: requiring IVF, requiring O2 Exam/Review of Systems Exam Vitals Vital Signs Date Temp Pulse Resp B/P (MAP) Pulse Ox O2 O2 Flow FiO2 Time Delivery Rate 08/07/18 73 24 123/44 95 18:00 (70) 08/07/18 70 17:20 08/07/18 98.0 Mechanical 16:00 Ventilator Intake and Output 08/06/18 08/06/18 08/07/18 1515:00 23:00 07:00 IntakeIntake Total 1950.0 ml 1170 ml 758.75 ml OutputOutput Total 565 ml 215 ml 420 ml BalanceBalance 1385.0 ml 955 ml 338.75 ml Constitutional: non-verbal, frail Psych: nl mood/affect Eyes: nl lids ENMT: nl external ears & nose Neck: supple, other (ET tube intact) Respiratory: diminished breath sounds Musculoskeletal: muscle weakness, range of motion Extremities: edema Neurological: unresponsive Results Results 24hrs Laboratory Tests Test 08/07/18 04:30 08/07/18 07:27 08/07/18 08:59 08/07/18 10:10 White Blood 17.6 H Count Red Blood Count 2.46 L Hemoglobin 7.7 L Hematocrit 26.3 L Mean Corpuscular 106.9 H Volume Mean Corpuscular 31.3 Hemoglobin Mean Corpuscular 29.3 L Hemoglobin Sari nt Red Cell 19.9 H Distribution Width Platelet Count 39 #L Mean Platelet 13.4 H Volume Immature 1.400 H Granulocytes % Neutrophils % 88.1 H Lymphocytes % 7.4 L Monocytes % 2.9 Eosinophils % 0.1 Basophils % 0.1 Nucleated Red 0.2 H Blood Cells % Immature 0.250 H Granulocytes # Neutrophils # 15.5 H Lymphocytes # 1.3 Monocytes # 0.5 Eosinophils # 0.0 Basophils # 0.0 Nucleated Red 0.0 Blood Cells # Sodium Level 146 H 140 Potassium Level 5.4 H 5.1 Chloride Level 111 H 111 H Carbon Dioxide 25 26 Level Anion Gap 10 3 L Blood Urea 61 H 60 H Nitrogen Creatinine 1.20 H 1.32 H Est Glomerular Filtrat Rate mL/min Glucose Level 126 187 Calcium Level 8.5 8.3 L Phosphorus Level 3.3 Magnesium Level 2.3 Blood Gas Blood arterial Blood arterial Specimen Source Arterial Blood 08/07/2018 7:37:01 08/07/2018 10:12:0 Date Drawn AM 2 AM Arterial Blood 7.240 *L 7.265 *L pH (Temp corrected) Arterial Blood 56.7 H 51.7 H pCO2 (Temp correct) Arterial Blood 75.1 L 78.3 L pO2 (Temp corrected) Arterial Blood 23.8 22.9 HCO3 Arterial Blood -3.8 L -4.1 L Base Excess Arterial Blood 93.9 L 95.0 Oxygen Saturatio n Vick Test ACCEPTAB ACCEPTAB Arterial Blood Right Radial Right Radial Gas Puncture Site Arterial 0.7 0.5 Blood Carboxyhem oglobin Arterial Blood 0 0.1 Methemoglobin Blood Gas A-a O2 363.1 H 365.2 H Differential Oxyhemoglobin 93.2 94.4 Percent Blood Gas 37.0 37.0 Temperature Blood Gas 22.0 24.0 Respiration Rate Blood Gas Actual 22 24 Respiration Rate Blood Gas TRACH COLLAR VENT - AC Modality FiO2 70.0 70.0 Blood Gas Tidal 500.0 500.0 Volume Blood Gas Low 5.0 10.0 PEEP Setting Blood Gas MINO PEREZ RN Critical Value Read Back Blood Gas TM TM Notified Whom Blood Gas 08/07/2018 7:49:00 08/07/2018 10:23:2 Notified Time AM 0 AM Vancomycin Level 19.8 Trough Medications Medication Current Medications Vancomycin HCl (Vanco Iv Per Pharmacy) VANCOMYCIN PER PHARMACY PER PROTOCOL XX ; Start 07/28/18 at 17:30 Albuterol/ Ipratropium (Duoneb) 3 ml Q6H RESP THERAPY HHN Last administered on 08/02/18 01:07; Admin Dose 3 ML; Start 07/28/18 at 20:00; Status Hold Calcium/Vitamin D ([place]/ Vit-D (500/200)) 1 tab BID PO Last administered on 08/07/18 08:07; Admin Dose 1 TAB; Start 07/28/18 at 21:00 Clonazepam (Klonopin) 0.5 mg BID PRN PO ANXIETY Last administered on 08/04/18 21:00; Admin Dose 0.5 MG; Start 07/28/18 at 21:00 Clonidine (Catapres) 0.1 mg TID PRN PO ELEVATED BLOOD PRESSURE Last administered on 07/29/18at 16:54; Admin Dose 0.1 MG; Start 07/28/18 at 21:00 Hydromorphone HCl (Dilaudid) 2 mg Q4H PRN PO SEVERE PAIN LEVEL 7-10 Last administered on 08/01/18 23:34; Admin Dose 2 MG; Start 07/28/18 at 21:00 Docusate Sodium (Colace) 100 mg BID PRN PO CONSTIPATION; Start 07/28/18 at 21:00 Gabapentin (Neurontin) 200 mg BID PO Last administered on 08/07/18 08:07; Admin Dose 200 MG; Start 07/28/18 at 21:00 Metoprolol Tartrate (Lopressor) 25 mg BID PO Last administered on 08/06/18 20:34; Admin Dose 25 MG; Start 07/28/18 at 21:00 Magnesium Hydroxide (Milk Of Mag) 30 ml DAILY PRN PO CONSTIPATION; Start 07/28/18 at 21:00 Acetaminophen/ Hydrocodone Bitart ([place] (10/325)) 1 tab Q4H PRN PO MODERATE PAIN LEVEL 4-6 Last administered on 08/01/18 21:02; Admin Dose 1 TAB; Start 07/28/18 at 21:00 Carisoprodol (Soma) 350 mg BID PRN PO MUSCLE SPASMS; Start 07/28/18 at 21:00 Trazodone HCl (Desyrel) 50 mg HS PRN PO INSOMNIA Last administered on 07/29/18 20:29; Admin Dose 50 MG; Start 07/28/18 at 21:00 Ondansetron HCl (Zofran Inj) 4 mg Q6H PRN IV NAUSEA AND/OR VOMITING; Start 07/28/18 at 21:00 Methylprednisolone Sodium Succinate (Solu-Medrol) 40 mg DAILY IV Last administered on 08/07/18 09:27; Admin Dose 40 MG; Start 07/29/18 at 09:00 Ascorbic Acid (Vitamin C) 500 mg TID PO Last administered on 08/07/18 12:30; Admin Dose 500 MG; Start 07/29/18 at 09:00 Lorazepam (Ativan) 0.5 mg Q6H PRN PO ANXIETY Last administered on 08/05/18 04:06; Admin Dose 0.5 MG; Start 07/29/18 at 20:30 Guaifenesin/ Dextromethorphan (Robitussin Dm Liquid Cup) 5 ml Q4H PRN PO COUGH Last administered on 08/01/18 16:32; Admin Dose 5 ML; Start 07/29/18 at 20:30 Diltiazem HCl 125 ml @ 5 mls/hr TITRATE IV Last administered on 07/30/18 09:40; Admin Dose 5 MLS/HR; Start 07/30/18 at 09:00; Status Hold Dronedarone (Multaq) 400 mg BID WITH MEALS PO Last administered on 08/07/18 16:41; Admin Dose 400 MG; Start 07/30/18 at 09:30 Propofol 100 ml @ 1.986 mls/ hr Q12H IV Last administered on 08/05/18 06:36; Admin Dose 11.916 MLS/HR; Start 08/02/18 at 10:00 Albuterol (Ventolin Hfa) 4 puff Q6H RESP THERAPY INH Last administered on 08/07/18 19:07; Admin Dose 4 PUFF; Start 08/02/18 at 14:00 Ipratropium [place] (Atrovent Hfa) 4 puff Q6H RESP THERAPY INH Last administer ed on 08/07/18 19:07; Admin Dose 4 PUFF; Start 08/02/18 at 14:00 Fluconazole/ Sodium Chloride 50 ml @ 50 mls/hr Q24H IVPB Last administered on 08/07/18 16:49; Admin Dose 50 MLS/HR; Start 08/02/18 at 17:00 Acetaminophen (Tylenol Liquid) 650 mg Q6H PRN GTB MILD PAIN (1-3) OR TEMPERATURE; Start 08/03/18 at 09:30 Docusate Sodium (Colace Liquid Cup) 100 mg BID PRN GTB CONSTIPATION,,,,; Start 08/03/18 at 09:30 IV Flush (NS 10 ml) 10 ml PRN PRN IV IV PROTOCOL; Start 08/03/18 at 10:30 Fentanyl 100 ml @ 2.5 mls/hr TITRATE IV Last administered on 08/07/18 16:42; Admin Dose 2.5 MLS/HR; Start 08/04/18 at 09:00 Lansoprazole (Prevacid) 30 mg DAILY@06 GTB Last administered on 2/1/19at 05:17; Admin Dose 30 MG; Start 08/05/18 at 06:00 Midazolam HCl 50 ml @ 1 mls/hr TITRATE IV Last administered on 08/07/18at 18:52; Admin Dose 5 MLS/HR; Start 08/05/18 at 12:00 Norepinephrine 250 ml @ 1.875 mls/ hr TITRATE IV Last administered on 08/05/18at 13:00; Admin Dose 30 MLS/HR; Start 08/05/18 at 13:00 Sodium Chloride 1,000 ml @ 100 mls/hr Q10H IV Last administered on 08/07/18at 16:41; Admin Dose 100 MLS/HR; Start 08/06/18 at 08:00 Meropenem/Sodium Chloride 50 ml @ 100 mls/hr Q12 IVPB Last administered on 08/07/18at 09:22; Admin Dose 100 MLS/HR; Start 08/06/18 at 21:00 Phenylephrine HCl 80 mg/Dextrose 250 ml @ 18.75 mls/ hr TITRATE IV Last administered on 08/07/18at 18:56; Admin Dose 28.13 MLS/HR; Start 08/06/18 at 15:30 Vancomycin/Sodium Chloride 250 ml @ 125 mls/hr Q36H IVPB ; Start 08/08/18 at 2 3:00 Levofloxacin/ Dextrose 50 ml @ 50 mls/hr DAILY IVPB ; Start 08/08/18 at 09:00 EDITA CACERES Aug 07, 2018 19:26
[2018-08-08] VITALS (94 sets, daily range): BP systolic 106–141; BP diastolic 42–54; PULSE 68–88; RESP 19–24
[2018-08-08] MEDS: IPRATROPIUM (HFA) 12.9 GM INHALER INH SCH ×4 (01:24→19:25)
[2018-08-08] MEDS: ALBUTEROL HFA 8 GM INHALER INH SCH ×4 (01:24→19:25)
[2018-08-08] MEDS: PHENYLephrine 80 MG in DEXTROSE 5% 242 ML IV SCH (03:03)
[2018-08-08] MEDS: LANSOPRAZOLE 30 MG CAP GTB SCH (05:14)
[2018-08-08] MEDS: MIDAZOLAM (DRIP) 50 mg/50 mL 50 ML IV SCH ×2 (05:30→18:00)
--- NOTE | 2018-08-08 08:29 | CONS ---
Assessment/Plan Assessment/Plan Assessment/Plan (Daily) Ventilator setting; AC of 24, tidal volume 500, PEEP of 10, 70% FiO2. Patient is currently on fentanyl 50 mics per hour, phenylephrine drip 70 mics per minute, Versed 5 mg/h. Chest x-ray and ABG from this morning are pending as well as labs. Assessment recommendations; 1. Patient admitted with severe pneumonia leading to respiratory failure requiring intubation. Chest x-ray showing ARDS pattern. Currently on appropriate antimicrobial regimen. 2. History of prior tracheostomy with decannulation. 3. History of depression. 4. History of pancreatic mass, apparently nonmalignant. 5. History of systemic and pulmonary hypertension. 6. Mild hypernatremia. 7. Generalized anasarca. 8. Severe thrombocytopenia. Continue current supportive care. Further recommendations once chest x-ray and ABG are performed as well as routine labs from this morning. Prognosis appears poor. 35 minutes of critical care time was spent evaluating the patient. Consultation Date/Type/Reason Admit Date/Time Jul 28, 2018 at 18:16 Initial Consult Date 07/28/18 Type of Consult Pulmonary Requesting Provider: ABDIAS STAPLES MD Date/Time of Note DATE: 08/08/18 TIME: 08:26 24 HR Interval Summary Free Text/Dictation Patient's condition remains critical. Requiring high FiO2. Also requiring pressor support for hypotension. General exam; elderly female, orally intubated, exhibiting occasional inguinal respirations. Currently no distress. Sedated. Exam/Review of Systems Exam Vitals Vital Signs Date Temp Pulse Resp B/P (MAP) Pulse Ox O2 O2 Flow FiO2 Time Delivery Rate 08/08/18 80 24 136/53 97 Mechanical 06:00 (80) Ventilator 08/08/18 98.0 04:00 08/08/18 70 03:47 Intake and Output 08/07/18 08/07/18 08/08/18 1515:00 23:00 07:00 IntakeIntake Total 2216.16 ml 1791.85 ml 626.15 ml OutputOutput Total 300 ml 230 ml 135 ml BalanceBalance 1916.16 ml 1561.85 ml 491.15 ml Exam HEENT exam; supple neck, no JVD. No lymphadenopathy. Midline trachea. No thyromegaly. Patient is edentulous. Orally intubated. There is a well-healed tracheostomy scar. Pupils are small bilaterally. Chest exam; bilateral crackles. S1-S2 audible, no murmurs. Regular rhythm. Abdomen exam; soft, nondistended. Bowel sounds audible. No organomegaly. There is a well-healed epigastric scar. Extremity exam; 1+ edema with multiple ecchymosis. MELT HELPER exam; patient is sedated. Results Result Diagram: 08/07/18 0430 08/07/18 0859 Results 24hrs Laboratory Tests Test 08/07/18 08:59 08/07/18 10:10 08/08/18 04:50 Sodium Level 140 Potassium Level 5.1 Chloride Level 111 H Carbon Dioxide Level 26 Anion Gap 3 L Blood Urea Nitrogen 60 H Creatinine 1.32 H Est Glomerular Filtrat Rate mL/min Glucose Level 187 Calcium Level 8.3 L Vancomycin Level Trough 19.8 Blood Gas Specimen Source Blood arterial Arterial Blood Date Drawn 08/07/2018 10:12:02 AM Arterial Blood pH 7.265 *L (Temp corrected) Arterial Blood pCO2 51.7 H (Temp correct) Arterial Blood pO2 78.3 L (Temp corrected) Arterial Blood HCO3 22.9 Arterial Blood Base Excess -4.1 L Arterial Blood 95.0 Oxygen Saturation Vick Test ACCEPTAB Arterial Blood Gas Right Radial Puncture Site Arterial 0.5 Blood Carboxyhemoglobin Arterial Blood Methemoglobin 0.1 Blood Gas A-a O2 Differential 365.2 H Oxyhemoglobin Percent 94.4 Blood Gas Temperature 37.0 Blood Gas Respiration Rate 24.0 Blood Gas Actual 24 Respiration Rate Blood Gas Modality VENT - AC FiO2 70.0 Blood Gas Tidal Volume 500.0 Blood Gas Low PEEP Setting 10.0 Blood Gas Critical Value ANA GARAY Read Back Blood Gas Notified Whom TM Blood Gas Notified Time 08/07/2018 10:23:20 AM Lactic Acid Level 1.6 Medications Medication Current Medications Vancomycin HCl (Vanco Iv Per Pharmacy) VANCOMYCIN PER PHARMACY PER PROTOCOL XX ; Start 07/28/18 at 17:30 Albuterol/ Ipratropium (Duoneb) 3 ml Q6H RESP THERAPY HHN Last administered on 08/02/18at 01:07; Admin Dose 3 ML; Start 07/28/18 at 20:00; Status Hold Calcium/Vitamin D (Oyster Shell/ Vit-D (500/200)) 1 tab BID PO Last administered on 08/07/18 20:54; Admin Dose 1 TAB; Start 07/28/18 at 21:00 Clonazepam (Klonopin) 0.5 mg BID PRN PO ANXIETY Last administered on 08/04/18 21:00; Admin Dose 0.5 MG; Start 07/28/18 at 21:00 Clonidine (Catapres) 0.1 mg TID PRN PO ELEVATED BLOOD PRESSURE Last administered on 07/29/18 16:54; Admin Dose 0.1 MG; Start 07/28/18 at 21:00 Hydromorphone HCl (Dilaudid) 2 mg Q4H PRN PO SEVERE PAIN LEVEL 7-10 Last ad ministered on 08/01/18 23:34; Admin Dose 2 MG; Start 07/28/18 at 21:00 Docusate Sodium (Colace) 100 mg BID PRN PO CONSTIPATION; Start 07/28/18 at 21:00 Gabapentin (Neurontin) 200 mg BID PO Last administered on 08/07/18 20:53; Admin Dose 200 MG; Start 07/28/18 at 21:00 Magnesium Hydroxide (Milk Of Mag) 30 ml DAILY PRN PO CONSTIPATION; Start 07/28/18 at 21:00 Acetaminophen/ Hydrocodone Bitart ([place] (10/325)) 1 tab Q4H PRN PO MODERATE PAIN LEVEL 4-6 Last administered on 08/01/18 21:02; Admin Dose 1 TAB; Start 07/28/18 at 21:00 Carisoprodol (Soma) 350 mg BID PRN PO MUSCLE SPASMS; Start 07/28/18 at 21:00 Trazodone HCl (Desyrel) 50 mg HS PRN PO INSOMNIA Last administered on 07/29/18 20:29; Admin Dose 50 MG; Start 07/28/18 at 21:00 Ondansetron HCl (Zofran Inj) 4 mg Q6H PRN IV NAUSEA AND/OR VOMITING; Start 07/28/18 at 21:00 Methylprednisolone Sodium Succinate (Solu-Medrol) 40 mg DAILY IV Last administered on 08/07/18 09:27; Admin Dose 40 MG; Start 07/29/18 at 09:00 Ascorbic Acid (Vitamin C) 500 mg TID PO Last administered on 08/07/18 20:54; Admin Dose 500 MG; Start 07/29/18 at 09:00 Lorazepam (Ativan) 0.5 mg Q6H PRN PO ANXIETY Last administered on 08/05/18 04:06; Admin Dose 0.5 MG; Start 07/29/18 at 20:30 Guaifenesin/ Dextromethorphan (Robitussin Dm Liquid Cup) 5 ml Q4H PRN PO COUGH Last administered on 08/01/18 16:32; Admin Dose 5 ML; Start 07/29/18 at 20:30 Diltiazem HCl 125 ml @ 5 mls/hr TITRATE IV Last administered on 07/30/18 09:40; Admin Dose 5 MLS/HR; Start 07/30/18 at 09:00; Status Hold Dronedarone (Multaq) 400 mg BID WITH MEALS PO Last administered on 08/07/18 16:41; Admin Dose 400 MG; Start 07/30/18 at 09:30 Propofol 100 ml @ 1.986 mls/ hr Q12H IV Last administered on 08/05/18 06:36; Admin Dose 11.916 MLS/HR; Start 08/02/18 at 10:00 Albuterol (Ventolin Hfa) 4 puff Q6H RESP THERAPY INH Last administered on 08/08/18 01:24; Admin Dose 4 PUFF; Start 08/02/18 at 14:00 Ipratropium [place] (Atrovent Hfa) 4 puff Q6H RESP THERAPY INH Last admin istered on 08/08/18 01:24; Admin Dose 4 PUFF; Start 08/02/18 at 14:00 Fluconazole/ Sodium Chloride 50 ml @ 50 mls/hr Q24H IVPB Last administered on 08/07/18 16:49; Admin Dose 50 MLS/HR; Start 08/02/18 at 17:00 Acetaminophen (Tylenol Liquid) 650 mg Q6H PRN GTB MILD PAIN (1-3) OR TEMPERATURE; Start 08/03/18 at 09:30 Docusate Sodium (Colace Liquid Cup) 100 mg BID PRN GTB CONSTIPATION,,,,; Start 08/03/18 at 09:30 IV Flush (NS 10 ml) 10 ml PRN PRN IV IV PROTOCOL; Start 08/03/18 at 10:30 Fentanyl 100 ml @ 2.5 mls/hr TITRATE IV Last administered on 08/07/18at 16:42; Admin Dose 2.5 MLS/HR; Start 08/04/18 at 09:00 Lansoprazole (Prevacid) 30 mg DAILY@06 GTB Last administered on 08/08/18at 05:14; Admin Dose 30 MG; Start 08/05/18 at 06:00 Midazolam HCl 50 ml @ 1 mls/hr TITRATE IV Last administered on 08/08/18at 05:30; Admin Dose 5 MLS/HR; Start 08/05/18 at 12:00 Norepinephrine 250 ml @ 1.875 mls/ hr TITRATE IV Last administered on 08/05/18at 13:00; Admin Dose 30 MLS/HR; Start 08/05/18 at 13:00 Sodium Chloride 1,000 ml @ 50 mls/hr Q20H IV Last administered on 08/07/18at 16:41; Admin Dose 100 MLS/HR; Start 08/06/18 at 08:00 Meropenem/Sodium Chloride 50 ml @ 100 mls/hr Q12 IVPB Last administered on 08/07/18at 20:53; Admin Dose 100 MLS/HR; Start 08/06/18 at 21:00 Phenylephrine HCl 80 mg/Dextrose 250 ml @ 18.75 mls/ hr TITRATE IV Last administered on 08/08/18at 03:03; Admin Dose 24.38 MLS/HR; Start 08/06/18 at 15:30 Vancomycin/Sodium Chloride 250 ml @ 125 mls/hr Q36H IVPB ; Start 08/08/18 at 23:00 Levofloxacin/ Dextrose 50 ml @ 50 mls/hr DAILY IVPB ; Start 08/08/18 at 09:00 DEJUAN OSULLIVAN Aug 08, 2018 08:29
--- NOTE | 2018-08-08 09:47 | CONS ---
Assessment/Plan Assessment/Plan Hospital Course (Demo Recall) ID PROGRESS NOTE CURRENT ABX: DAY # => Vanco IV + Merrem + Diflucan + Levaquin 08/07/18 0430 08/07/18 0859 24H INTERVAL SUMMARY * Sedated on Versed, on Matt pressors, orally intubated, critically ill in the ICU * WBC elevated -- she has been on IV steroids this admission * Endotracheal tube and NG tube Landis catheter PICC line * CXR 08/07/18 IMPRESSION:1. No significant interval change in diffuse bilateral interstitial prominence and patchy infiltrates. 2. Lines and tubes as above. MICRO/OTHER * (-)MRSA Nares, (-)Influenza A/B * Sputum (+)C.Albicans- repeat ETT Aspirate (-) * 07/30/18 BCx * 07/28/18 BCx(+)CoNS PHYSICAL EXAMINATION: GENERAL: Afebrile, on pressors, Sedated on Versed, on Matt pressors, orally intubated, critically ill in the ICU HEENT: AT, NC, anicteric, ETT in place secure NECK: Supple, trach midline CHEST: Equal chest rise bilaterally, vented, course HEART: Pulse RRR ABDOMEN: Soft / NT EXTREMITIES: Warm, dry == (+)generalized edema SKIN: No rash, no diaphoresis, (+) BUEXT ecchymosis, petechiae ID ASSESSMENT 73 yo F admit with: 1. Severe sepsis, present on admission * Leukocytosis persisting -- note has been on IV steroids 2. Acute on chronic respiratory failure, status post intubation 08/02/18 3. Healthcare associated pneumonia/ARDS 4. Coag negative staph bacteremia, possibly contaminant 5. Anemia with progressive thrombocytopenia 6. Leukocytosis likely steroid-induced 5. Peripheral arterial disease status post stent 6. Pancreatic head mass, patient is following with a specialist yearly 7. Recent right hip fracture status post surgical intervention (-)MRSA Nares ABX ALLERGIES: PCN/Tetracyclines INVASIVES: PIV CURRENT ABX: DAY # => Vanco IV + Merrem + Diflucan + Levaquin ID RECOMMENDATIONS/PLAN: 1. Continue current ABX -- PCN allergy not able to de-escalate Merrem . Consultation Date/Type/Reason Admit Date/Time Jul 28, 2018 at 18:16 Initial Consult Date 07/28/18 Requesting Provider: ABDIAS STAPLES MD Date/Time of Note DATE: 08/08/18 TIME: 09:46 Exam/Review of Systems Exam Vitals Vital Signs Date Temp Pulse Resp B/P (MAP) Pulse Ox O2 O2 Flow FiO2 Time Delivery Rate 08/08/18 84 08:00 08/08/18 24 136/53 97 Mechanical 06:00 (80) Ventilator 08/08/18 98.0 04:00 08/08/18 70 03:47 Intake and Output 08/07/18 08/07/18 08/08/18 1515:00 23:00 07:00 IntakeIntake Total 2216.16 ml 1791.85 ml 626.15 ml OutputOutput Total 300 ml 230 ml 135 ml BalanceBalance 1916.16 ml 1561.85 ml 491.15 ml Results Result Diagram: 08/07/18 0430 08/07/18 0859 Results 24hrs Laboratory Tests Test 08/07/18 10:10 08/08/18 04:50 08/08/18 08:30 Blood Gas Specimen Blood arterial Blood arterial Source Arterial Blood Date 08/07/2018 10:12:02 AM 08/08/2018 8:36:24 AM Drawn Arterial Blood pH 7.265 *L 7.255 *L (Temp corrected) Arterial Blood pCO2 51.7 H 49.7 H (Temp correct) Arterial Blood pO2 78.3 L 97.2 H (Temp corrected) Arterial Blood HCO3 22.9 21.6 L Arterial Blood Base -4.1 L -5.4 L Excess Arterial Blood 95.0 96.7 Oxygen Saturation Vick Test ACCEPTAB ACCEPTAB Arterial Blood Gas Right Radial Right Radial Puncture Site Arterial 0.5 0.2 Blood Carboxyhemoglobin Arterial Blood 0.1 0.2 Methemoglobin Blood Gas A-a O2 365.2 H 348.5 H Differential Oxyhemoglobin Percent 94.4 96.3 Blood Gas Temperature 37.0 37.0 Blood Gas Respiration 24.0 24.0 Rate Blood Gas Actual 24 24 Respiration Rate Blood Gas Modality VENT - AC VENT - AC FiO2 70.0 70.0 Blood Gas Tidal Volume 500.0 500.0 Blood Gas Low PEEP 10.0 10.0 Setting Blood Gas Critical ANA MONTENEGRO RN Value Read Back Blood Gas Notified Whom TM SM Blood Gas Notified 08/07/2018 10:23:20 AM 08/08/2018 8:45:11 AM Time Lactic Acid Level 1.6 Medications Medication Current Medications Vancomycin HCl (Vanco Iv Per Pharmacy) VANCOMYCIN PER PHARMACY PER PROTOCOL XX ; Start 07/28/18 at 17:30 Albuterol/ Ipratropium (Duoneb) 3 ml Q6H RESP THERAPY HHN Last administered on 08/02/18at 01:07; Admin Dose 3 ML; Start 07/28/18 at 20:00; Status Hold Calcium/Vitamin D (Oyster Shell/ Vit-D (500/200)) 1 tab BID PO Last administered on 08/07/18 20:54; Admin Dose 1 TAB; Start 07/28/18 at 21:00 Clonazepam (Klonopin) 0.5 mg BID PRN PO ANXIETY Last administered on 08/04/18 21:00; Admin Dose 0.5 MG; Start 07/28/18 at 21:00 Clonidine (Catapres) 0.1 mg TID PRN PO ELEVATED BLOOD PRESSURE Last administered on 07/29/18 16:54; Admin Dose 0.1 MG; Start 07/28/18 at 21:00 Hydromorphone HCl (Dilaudid) 2 mg Q4H PRN PO SEVERE PAIN LEVEL 7-10 Last administered on 08/01/18at 23:34; Admin Dose 2 MG; Start 07/28/18 at 21:00 Docusate Sodium (Colace) 100 mg BID PRN PO CONSTIPATION; Start 07/28/18 at 21:00 Gabapentin (Neurontin) 200 mg BID PO Last administered on 08/07/18 20:53; Admin Dose 200 MG; Start 07/28/18 at 21:00 Magnesium Hydroxide (Milk Of Mag) 30 ml DAILY PRN PO CONSTIPATION; Start 07/28/18 at 21:00 Acetaminophen/ Hydrocodone Bitart ([place] (10/325)) 1 tab Q4H PRN PO MODERATE PAIN LEVEL 4-6 Last administered on 08/01/18at 21:02; Admin Dose 1 TAB; Start 07/28/18 at 21:00 Carisoprodol (Soma) 350 mg BID PRN PO MUSCLE SPASMS; Start 07/28/18 at 21:00 Trazodone HCl (Desyrel) 50 mg HS PRN PO INSOMNIA Last administered on 07/29/18 20:29; Admin Dose 50 MG; Start 07/28/18 at 21:00 Ondansetron HCl (Zofran Inj) 4 mg Q6H PRN IV NAUSEA AND/OR VOMITING; Start 07/28/18 at 21:00 Methylprednisolone Sodium Succinate (Solu-Medrol) 40 mg DAILY IV Last administered on 08/07/18 09:27; Admin Dose 40 MG; Start 07/29/18 at 09:00 Ascorbic Acid (Vitamin C) 500 mg TID PO Last administered on 08/07/18 20:54; Admin Dose 500 MG; Start 07/29/18 at 09:00 Lorazepam (Ativan) 0.5 mg Q6H PRN PO ANXIETY Last administered on 08/05/18 04:06; Admin Dose 0.5 MG; Start 07/29/18 at 20:30 Guaifenesin/ Dextromethorphan (Robitussin Dm Liquid Cup) 5 ml Q4H PRN PO COUGH Last administered on 08/01/18 16:32; Admin Dose 5 ML; Start 07/29/18 at 20:30 Diltiazem HCl 125 ml @ 5 mls/hr TITRATE IV Last administered on 07/30/18 09:40; Admin Dose 5 MLS/HR; Start 07/30/18 at 09:00; Status Hold Dronedarone (Multaq) 400 mg BID WITH MEALS PO Last administered on 08/07/18 16:41; Admin Dose 400 MG; Start 07/30/18 at 09:30 Propofol 100 ml @ 1.986 mls/ hr Q12H IV Last administered on 08/05/18 06:36; Admin Dose 11.916 MLS/HR; Start 08/02/18 at 10:00 Albuterol (Ventolin Hfa) 4 puff Q6H RESP THERAPY INH Last administered on 08/08/18 09:12; Admin Dose 4 PUFF; Start 08/02/18 at 14:00 Ipratropium [place] (Atrovent Hfa) 4 puff Q6H RESP THERAPY INH Last administered on 08/08/18 09:12; Admin Dose 4 PUFF; Start 08/02/18 at 14:00 Fluconazole/ Sodium Chloride 50 ml @ 50 mls/hr Q24H IVPB Last administered on 08/07/18 16:49; Admin Dose 50 MLS/HR; Start 08/02/18 at 17:00 Acetaminophen (Tylenol Liquid) 650 mg Q6H PRN GTB MILD PAIN (1-3) OR TEMPERATUR E; Start 08/03/18 at 09:30 Docusate Sodium (Colace Liquid Cup) 100 mg BID PRN GTB CONSTIPATION,,,,; Start 08/03/18 at 09:30 IV Flush (NS 10 ml) 10 ml PRN PRN IV IV PROTOCOL; Start 08/03/18 at 10:30 Fentanyl 100 ml @ 2.5 mls/hr TITRATE IV Last administered on 08/07/18 16:42; Admin Dose 2.5 MLS/HR; Start 08/04/18 at 09:00 Lansoprazole (Prevacid) 30 mg DAILY@06 GTB Last administered on 08/08/18 05:14; Admin Dose 30 MG; Start 08/05/18 at 06:00 Midazolam HCl 50 ml @ 1 mls/hr TITRATE IV Last administered on 08/08/18 05:30; Admin Dose 5 MLS/HR; Start 08/05/18 at 12:00 Norepinephrine 250 ml @ 1.875 mls/ hr TITRATE IV Last administered on 08/05/18 13:00; Admin Dose 30 MLS/HR; Start 08/05/18 at 13:00 Sodium Chloride 1,000 ml @ 50 mls/hr Q20H IV Last administered on 08/07/18 16:41; Admin Dose 100 MLS/HR; Start 08/06/18 at 08:00 Meropenem/Sodium Chloride 50 ml @ 100 mls/hr Q12 IVPB Last administered on 08/07/18 20:53; Admin Dose 100 MLS/HR; Start 08/06/18 at 21:00 Phenylephrine HCl 80 mg/Dextrose 250 ml @ 18.75 mls/ hr TITRATE IV Last administered on 08/08/18 03:03; Admin Dose 24.38 MLS/HR; Start 08/06/18 at 15:30 Vancomycin/Sodium Chloride 250 ml @ 125 mls/hr Q36H IVPB ; Start 08/08/18 at 23:00 Levofloxacin/ Dextrose 50 ml @ 50 mls/hr DAILY IVPB ; Start 08/08/18 at 09:00 TESSA DAVILA NP Aug 08, 2018 09:46
[2018-08-08] MEDS: DRONEDARONE HYDROCHLORIDE 400 MG TAB PO SCH ×2 (09:52→17:57)
[2018-08-08] MEDS: ASCORBIC ACID 500 MG TAB PO SCH ×3 (09:52→21:17)
[2018-08-08] MEDS: CALCIUM/VITAMIN D (500/200) TAB PO SCH ×2 (09:52→21:17)
[2018-08-08] MEDS: GABAPENTIN 100 MG CAP PO SCH ×2 (09:54→21:17)
[2018-08-08] MEDS: PROPOFOL 100 ML IV SCH ×2 (09:54→22:00)
[2018-08-08] MEDS: LEVOFLOXACIN 250MG/D5W (PMX) 50 ML IVPB SCH (09:54)
[2018-08-08] MEDS: METHYLPREDNISOLONE 40 MG INJ IV SCH (09:54)
[2018-08-08] MEDS: SOD CHLORIDE 0.45% 1,000 ML IV SCH ×2 (10:19→23:11)
[2018-08-08] MEDS ORDERED: SODIUM POLYSTYRENE 15 GM KIT (POWDER + SORBITOL) NGT ONE ×2 (11:00→14:30)
[2018-08-08] MEDS: MEROPENEM 1 GM/50ML(PMX) 50 ML IVPB SCH ×2 (11:34→21:17)
--- NOTE | 2018-08-08 11:34 | PN ---
Date/Time of Note Date/Time of Note DATE: 08/08/18 TIME: 11:27 Assessment/Plan VTE Prophylaxis Risk score (from Ns)>0 risk: 12 SCD applied (from [facility] [place]): Yes SCD contraindicated: other Pharmacological prophylaxis: other Lines/Catheters IV Catheter Type (from [facility]): PICC Line Central line still needed: Yes Urinary Cath still in place: Yes Reason Cath still needed: urinary retention Assessment/Plan Assessment/Plan - Hyperkalemia- kayexalate 60 gm ogt x 1 - Acute hypoxemic respiratory failure due to healthcare-acquired pneumonia/ ARDS. - Continue ventilatory support, steroids. - in pulmonary follows - Anemia of acute blood loss secondary to nosebleed admission, resolved. - status post blood transfusion, continue to monitor hemoglobin and hematocrit. - Sepsis with gram-positive bacteremia. - Continue antibiotics per ID- Dr. Brown - Bilateral pulmonary fibrosis. Continue supplemental oxygen and symptomatic treatment with steroids. - Chronic obstructive pulmonary disease. Continue DuoNeb and steroids. - Nonobstructive coronary artery disease as per cardiac catheterization in 2012. - - Dr. Frost in cardiology follows - Paroxysmal atrial fibrillation. Patient had an episode of atrial fibrillation with rapid ventricular response and was on Cardizem drip, currently in sinus rhythm. - Hypertension. Continue metoprolol and Lasix. p.r.n. clonidine. - Peripheral artery disease, status post stent. - Dyslipidemia. Continue Lipitor. - MARQUES, Dr. Salazar from nephrology standpoint. - Recent right hip fracture, status post surgery. - Pancreatic head mass. As per patient, she has been going to a specialist every year for followup. - Anxiety and depression, continue Klonopin and Prozac. Critical care time spent more than 35 minutes.Further recommendations based on clinical course. Plan of care discussed with Dr. Pack. Result Diagram: 08/07/18 0430 08/08/18 1018 Results 24hrs Laboratory Tests Test 08/08/18 04:50 08/08/18 08:30 08/08/18 10:18 Lactic Acid Level 1.6 Blood Gas Specimen Source Blood arterial Arterial Blood Date Drawn 08/08/2018 8:36:24 AM Arterial Blood pH 7.255 *L (Temp corrected) Arterial Blood pCO2 49.7 H (Temp correct) Arterial Blood pO2 97.2 H (Temp corrected) Arterial Blood HCO3 21.6 L Arterial Blood Base Excess -5.4 L Arterial Blood 96.7 Oxygen Saturation Vick Test ACCEPTAB Arterial Blood Gas Right Radial Puncture Site Arterial 0.2 Blood Carboxyhemoglobin Arterial Blood Methemoglobin 0.2 Blood Gas A-a O2 Differential 348.5 H Oxyhemoglobin Percent 96.3 Blood Gas Temperature 37.0 Blood Gas Respiration Rate 24.0 Blood Gas Actual 24 Respiration Rate Blood Gas Modality VENT - AC FiO2 70.0 Blood Gas Tidal Volume 500.0 Blood Gas Low PEEP Setting 10.0 Blood Gas Critical Value P. IIUORE RN Read Back Blood Gas Notified Whom SM Blood Gas Notified Time 08/08/2018 8:45:11 AM Sodium Level 136 Potassium Level 5.8 H Chloride Level 109 Carbon Dioxide Level 23 Anion Gap 4 L Blood Urea Nitrogen 81 H Creatinine 1.68 H Est Glomerular Filtrat Rate mL/min Glucose Level 116 # Calcium Level 8.6 Phosphorus Level 4.3 Magnesium Level 2.4 Subjective 24 Hr Interval Summary Free Text/Dictation eric to 65 now Subjective hx not possible: pt non-verbal Exam/Review of Systems Exam Vitals Vital Signs Date Temp Pulse Resp B/P (MAP) Pulse Ox O2 O2 Flow FiO2 Time Delivery Rate 08/08/18 84 08:00 08/08/18 24 136/53 97 Mechanical 06:00 (80) Ventilator 08/08/18 98.0 04:00 08/08/18 70 03:47 Intake and Output 08/07/18 08/07/18 08/08/18 1515:00 23:00 07:00 IntakeIntake Total 2216.16 ml 1791.85 ml 626.15 ml OutputOutput Total 300 ml 230 ml 135 ml BalanceBalance 1916.16 ml 1561.85 ml 491.15 ml Constitutional: non-verbal, frail Eyes: nl lids ENMT: nl external ears & nose Neck: other Respiratory: diminished breath sounds Cardiovascular: nl pulses, other (s1s2) Gastrointestinal: soft Musculoskeletal: muscle weakness, range of motion Extremities: normal pulses Neurological: confused Skin: ecchymosis Results Results 24hrs Laboratory Tests Test 08/08/18 04:50 08/08/18 08:30 08/08/18 10:18 Lactic Acid Level 1.6 Blood Gas Specimen Source Blood arterial Arterial Blood Date Drawn 08/08/2018 8:36:24 AM Arterial Blood pH 7.255 *L (Temp corrected) Arterial Blood pCO2 49.7 H (Temp correct) Arterial Blood pO2 97.2 H (Temp corrected) Arterial Blood HCO3 21.6 L Arterial Blood Base Excess -5.4 L Arterial Blood 96.7 Oxygen Saturation Vick Test ACCEPTAB Arterial Blood Gas Right Radial Puncture Site Arterial 0.2 Blood Carboxyhemoglobin Arterial Blood Methemoglobin 0.2 Blood Gas A-a O2 Differential 348.5 H Oxyhemoglobin Percent 96.3 Blood Gas Temperature 37.0 Blood Gas Respiration Rate 24.0 Blood Gas Actual 24 Respiration Rate Blood Gas Modality VENT - AC FiO2 70.0 Blood Gas Tidal Volume 500.0 Blood Gas Low PEEP Setting 10.0 Blood Gas Critical Value Celestine MONTENEGRO RN Read Back Blood Gas Notified Whom Blood Gas Notified Time 08/08/2018 8:45:11 AM Sodium Level 136 Potassium Level 5.8 H Chloride Level 109 Carbon Dioxide Level 23 Anion Gap 4 L Blood Urea Nitrogen 81 H Creatinine 1.68 H Est Glomerular Filtrat Rate mL/min Glucose Level 116 # Calcium Level 8.6 Phosphorus Level 4.3 Magnesium Level 2.4 Medications Medication Current Medications Vancomycin HCl (Vanco Iv Per Pharmacy) VANCOMYCIN PER PHARMACY PER PROTOCOL XX ; Start 07/28/18 at 17:30 Albuterol/ Ipratropium (Duoneb) 3 ml Q6H RESP THERAPY HHN Last administered on 08/02/18at 01:07; Admin Dose 3 ML; Start 07/28/18 at 20:00; Status Hold Calcium/Vitamin D (Oyster Shell/ Vit-D (500/200)) 1 tab BID PO Last administered on 08/08/18 09:52; Admin Dose 1 TAB; Start 07/28/18 at 21:00 Clonazepam (Klonopin) 0.5 mg BID PRN PO ANXIETY Last administered on 08/04/18 21:00; Admin Dose 0.5 MG; Start 07/28/18 at 21:00 Clonidine (Catapres) 0.1 mg TID PRN PO ELEVATED BLOOD PRESSURE Last administered on 07/29/18 16:54; Admin Dose 0.1 MG; Start 07/28/18 at 21:00 Hydromorphone HCl (Dilaudid) 2 mg Q4H PRN PO SEVERE PAIN LEVEL 7-10 Last administered on 08/01/18 23:34; Admin Dose 2 MG; Start 07/28/18 at 21:00 Docusate Sodium (Colace) 100 mg BID PRN PO CONSTIPATION; Start 07/28/18 at 21:00 Gabapentin (Neurontin) 200 mg BID PO Last administered on 08/08/18 09:54; Admin Dose 200 MG; Start 07/28/18 at 21:00 Magnesium Hydroxide (Milk Of Mag) 30 ml DAILY PRN PO CONSTIPATION; Start 07/28/18 at 21:00 Acetaminophen/ Hydrocodone Bitart ([place] (10/325)) 1 tab Q4H PRN PO MODERATE PAIN LEVEL 4-6 Last administered on 08/01/18 21:02; Admin Dose 1 TAB; Start 07/28/18 at 21:00 Carisoprodol (Soma) 350 mg BID PRN PO MUSCLE SPASMS; Start 07/28/18 at 21:00 Trazodone HCl (Desyrel) 50 mg HS PRN PO INSOMNIA Last administered on 07/29/18 20:29; Admin Dose 50 MG; Start 07/28/18 at 21:00 Ondansetron HCl (Zofran Inj) 4 mg Q6H PRN IV NAUSEA AND/OR VOMITING; Start 07/28/18 at 21:00 Methylprednisolone Sodium Succinate (Solu-Medrol) 40 mg DAILY IV Last administered on 08/08/18 09:54; Admin Dose 40 MG; Start 07/29/18 at 09:00 Ascorbic Acid (Vitamin C) 500 mg TID PO Last administered on 08/08/18 09:52; Admin Dose 500 MG; Start 07/29/18 at 09:00 Lorazepam (Ativan) 0.5 mg Q6H PRN PO ANXIETY Last administered on 08/05/18 04:06; Admin Dose 0.5 MG; Start 07/29/18 at 20:30 Guaifenesin/ Dextromethorphan (Robitussin Dm Liquid Cup) 5 ml Q4H PRN PO COUGH Last administered on 08/01/18 16:32; Admin Dose 5 ML; Start 07/29/18 at 20:30 Diltiazem HCl 125 ml @ 5 mls/hr TITRATE IV Last administered on 07/30/18 09:40; Admin Dose 5 MLS/HR; Start 07/30/18 at 09:00; Status Hold Dronedarone (Multaq) 400 mg BID WITH MEALS PO Last administered on 08/08/18 09:52; Admin Dose 400 MG; Start 07/30/18 at 09:30 Propofol 100 ml @ 1.986 mls/ hr Q12H IV Last administered on 08/05/18 06:36; Admin Dose 11.916 MLS/HR; Start 08/02/18 at 10:00 Albuterol (Ventolin Hfa) 4 puff Q6H RESP THERAPY INH Last administered on 08/08/18 09:12; Admin Dose 4 PUFF; Start 08/02/18 at 14:00 Ipratropium [place]cock (Atrovent Hfa) 4 puff Q6H RESP THERAPY INH Last administered on 08/08/18 09:12; Admin Dose 4 PUFF; Start 08/02/18 at 14:00 Fluconazole/ Sodium Chloride 50 ml @ 50 mls/hr Q24H IVPB Last administered on 08/07/18 16:49; Admin Dose 50 MLS/HR; Start 08/02/18 at 17:00 Acetaminophen (Tylenol Liquid) 650 mg Q6H PRN GTB MILD PAIN (1-3) OR TEMPERATURE; Start 08/03/18 at 09:30 Docusate Sodium (Colace Liquid Cup) 100 mg BID PRN GTB CONSTIPATION,,,,; Start 08/03/18 at 09:30 IV Flush (NS 10 ml) 10 ml PRN PRN IV IV PROTOCOL; Start 08/03/18 at 10:30 Fentanyl 100 ml @ 2.5 mls/hr TITRATE IV Last administered on 08/07/18 16:42; Admin Dose 2.5 MLS/HR; Start 08/04/18 at 09:00 Lansoprazole (Prevacid) 30 mg DAILY@06 GTB Last administered on 08/08/18 05:14; Admin Dose 30 MG; Start 08/05/18 at 06:00 Midazolam HCl 50 ml @ 1 mls/hr TITRATE IV Last administered on 08/08/18 05:30; Admin Dose 5 MLS/HR; Start 08/05/18 at 12:00 Norepinephrine 250 ml @ 1.875 mls/ hr TITRATE IV Last administered on 1/30/19at 13:00; Admin Dose 30 MLS/HR; Start 08/05/18 at 13:00 Sodium Chloride 1,000 ml @ 50 mls/hr Q20H IV Last administered on 08/08/18at 10:19; Admin Dose 50 MLS/HR; Start 08/06/18 at 08:00 Meropenem/Sodium Chloride 50 ml @ 100 mls/hr Q12 IVPB Last administered on at 20:53; Admin Dose 100 MLS/HR; Start 08/06/18 at 21:00 Phenylephrine HCl 80 mg/Dextrose 250 ml @ 18.75 mls/ hr TITRATE IV Last administered on 08/08/18at 03:03; Admin Dose 24.38 MLS/HR; Start 08/06/18 at 15:30 Vancomycin/Sodium Chloride 250 ml @ 125 mls/hr Q36H IVPB ; Start 08/08/18 at 23:00 Levofloxacin/ Dextrose 50 ml @ 50 mls/hr DAILY IVPB Last administered on 08/08/18at 09:54; Admin Dose 50 MLS/HR; Start 08/08/18 at 09:00 EDITA CACERES Aug 08, 2018 11:34
--- NOTE | 2018-08-08 12:09 | PN ---
DATE: 08/08/2018 SUBJECTIVE: The patient is stable. No events overnight. OBJECTIVE: VITAL SIGNS: Blood pressure is 136/53, respirations 24, pulse 80. HEENT: Head is normocephalic. NECK: Supple. HEART: Regular rate. LUNGS: Show diminished breath sounds at the base. ABDOMEN: Soft, nontender to palpation. No rebound or guarding. EXTREMITIES: Negative for clubbing, cyanosis, positive edema. DERMATOLOGIC: No rashes. MUSCULOSKELETAL: No joint effusions. NEUROLOGIC: No change in exam. MEDICATIONS: Reviewed. LABORATORY DATA: Shows a sodium 136, potassium 5.8, BUN 81, creatinine 1.68. ABG showed pH 7.25, pC O2 49, base excess is -5. Cultures have been reviewed. IMAGING: The patient's chest x-ray was reviewed. ASSESSMENT AND PLAN: 1. Oliguric acute kidney injury with unknown baseline creatinine. Etiology of acute kidney injury i s secondary to acute tubular necrosis due to sepsis, hemodynamics, shock. The patient remains in inj ury phase of acute tubular necrosis. Urinary output has been marginal. Recommendations to continue current treatment plan. Continue supportive care. Continue pressor support. Continue antibiotic th erapy. If renal function and/or electrolytes are not able to be medically managed, would consider st arting renal replacement therapy. 2. Hyperkalemia. Etiology is secondary to acute kidney injury. The patient's potassium level has b een fluctuating. Plan to give patient course of Kayexalate. Will repeat a potassium level and monit or closely. If hyperkalemia cannot be medically managed, will consider starting renal replacement th erapy. 3. Anemia. Monitor hemoglobin and hematocrit levels. 4. Mixed acid base disorder. The patient has a respiratory acidosis, a metabolic acidosis and metab olic alkalosis. The patient's ABG was reviewed. At this point, will continue current treatment plan . Continue to monitor ABG levels. If patient's pCO2 levels cannot be adequately lowered, will consi sophy starting bicarbonate drip. 5. Hypernatremia. Continue free water flushes. Sodium levels have improved. 6. Volume overload. Etiology is multifactorial secondary to sepsis, capillary leak, IV fluids. Jhoan l continue to monitor closely. If pressor support can be lowered, will start the patient on diuretic therapy. 7. Septic shock secondary to pneumonia bacteremia. Continue current medical management. Continue p resent support, IV hydration, IV antibiotics, monitor closely. 8. Ventilator-dependent respiratory failure. Vent settings and ABG was reviewed. Continue to monit or. 9. Encephalopathy. Etiology is toxic metabolic. 10. Peripheral vascular disease. 11. Status post hip fracture. Please note I spent over 30 minutes of critical care time with this patient. Dictated By: GENEVIEVE MENJIVAR DO NR/NTS Conf#: [id number] DID#: [id number] CC: ABDIAS STAPLES MD;*EndCC*
[2018-08-08] MEDS: FENTAnyl (DRIP) 1000 mcg/100mL 100 ML IV SCH (13:51)
--- NOTE | 2018-08-08 17:17 | CONS ---
Consult Date/Type/Reason Admit Date/Time Jul 28, 2018 at 18:16 Initial Consult Date 07/28/18 Type of Consultation: cv Requesting Provider: ABDIAS STAPLES MD Date/Time of Note DATE: 08/08/18 TIME: 17:15 Subjective Cardiology follow-up progress note Subjective: Discussed with the staff and Telemetry was reviewed. Patient REMAINS INTUBATED on vent in ICU. currently down to 60% O2 he remains in NSR now Patient has been more confused and lethargic apparently and unresponsive Patient is lethargic and unable to provide any history to me Objective: General: Elderly female INTUBATED on vent . HEENT: NC/AT. pupils are equal. round. NECK: + JVD. no stridor. CV regular rate and rhythm systolic murmur; no gallop or rubs. PULM: no wheezing + rhonchi. GI: SOFT, NT, ND, no rebound or guarding Extremity: + LE edema. no clubbing. neuro: intubated on vent Psych: calm rectal: deferred : Deferred EKG was personally within normal sinus rhythm with no evidence of ischemia CT pulmonary angiogram done in the emergency room shows: 1. Moderate pulmonary fibrosis, worse at the bilateral lung apices. Associated mediastinal adenopathy. Underlying mass not entirely excluded. Further evaluation with PET-CT may be obtained. 2. Small right multiloculated pleural effusion. Moderate left layering pleural effusion. 3. Streaky bibasilar opacities compatible with atelectasis or pneumonia. 4. Dilated pulmonary trunk and bilateral pulmonary arteries compatible with sequelae of pulmonary hypertension. 5. Left renal 4 cm hyperdense cyst or mass. Further evaluation with multiphase contrast enhanced CT or MR may be obtained. Echocardiogram was personally reviewed which shows: Normal left ventricular systolic function. Normal left ventricular cavity size. Mild concentric left ventricular hypertrophy. Ejection fraction is visually estimated at 55 %. There is mild enlargement of left atrium. Normal appearance of the mitral valve. Mild mitral valve regurgitation. Aortic sclerosis without significant stenosis. Aortic cusps appear mildly calcified. Trileaflet aortic valve. Trace aortic valve regurgitation. Normal appearance of the tricuspid valve. Estimated peak PA systolic pressure 71 mmHg. There is mild tricuspid regurgitation. Normal size and normal respiratory collapse consistent with normal right atrial pressure. CXR 08/05 Again seen are diffuse coarse interstitial infiltrates with superimposed ground-glass densities, slightly more confluent within the perihilar regions and right lower lobe. The osseous structures are unremarkable. Chest x-ray August 06, 2018 shows: Stable patchy infiltrates throughout both lungs with potential small pleural effusions. Stable diffuse mild interstitial prominence in both lungs. Interstitial prominence could be chronic. Objective Vitals Vital Signs Date Temp Pulse Resp B/P (MAP) Pulse Ox O2 O2 Flow FiO2 Time Delivery Rate 08/08/18 75 16:00 08/08/18 98.6 24 126/51 94 Mechanical 12:00 (76) Ventilator 08/08/18 70 03:47 Intake and Output 08/07/18 08/07/18 08/08/18 1515:00 23:00 07:00 IntakeIntake Total 2216.16 ml 1791.85 ml 626.15 ml OutputOutput Total 300 ml 230 ml 135 ml BalanceBalance 1916.16 ml 1561.85 ml 491.15 ml Results/Medications Result Diagram: 08/08/18 1557 08/08/18 1557 Results 24 hrs Laboratory Tests Test 08/08/18 04:50 08/08/18 08:30 08/08/18 10:18 08/08/18 15:57 Lactic Acid Level 1.6 Blood Gas Specimen Blood arterial Source Arterial Blood 08/08/2018 8:36:24 Date Drawn AM Arterial Blood pH 7.255 *L (Temp corrected) Arterial Blood 49.7 H pCO2 (Temp correct) Arterial Blood pO2 97.2 H (Temp corrected) Arterial Blood 21.6 L HCO3 Arterial Blood -5.4 L Base Excess Arterial Blood 96.7 Oxygen Saturation Vick Test ACCEPTAB Arterial Blood Gas Right Radial Puncture Site Arterial 0.2 Blood Carboxyhemog lobin Arterial Blood 0.2 Methemoglobin Blood Gas A-a O2 348.5 H Differential Oxyhemoglobin 96.3 Percent Blood Gas 37.0 Temperature Blood Gas 24.0 Respiration Rate Blood Gas Actual 24 Respiration Rate Blood Gas Modality VENT - AC FiO2 70.0 Blood Gas Tidal 500.0 Volume Blood Gas Low PEEP 10.0 Setting Blood Gas Critical P. IIUORE RN Value Read Back Blood Gas Notified SM Whom Blood Gas Notified 08/08/2018 8:45:11 Time AM Sodium Level 136 138 Potassium Level 5.8 H 5.7 H Chloride Level 109 108 Carbon Dioxide 23 21 Level Anion Gap 4 L 9 # Blood Urea 81 H 84 H Nitrogen Creatinine 1.68 H 1.64 H Est Glomerular Filtrat Rate mL/min Glucose Level 116 # 131 Calcium Level 8.6 8.6 Phosphorus Level 4.3 Magnesium Level 2.4 White Blood Count 17.2 H Red Blood Count 2.33 L Hemoglobin 7.3 L Hematocrit 24.4 L Mean Corpuscular 104.7 H Volume Mean Corpuscular 31.3 Hemoglobin Mean Corpuscular 29.9 L Hemoglobin Concent Red Cell 19.4 H Distribution Width Platelet Count 40 L Mean Platelet Volume Immature 4.500 H Granulocytes % Neutrophils % 90.4 H Lymphocytes % 3.3 L Monocytes % 1.7 Eosinophils % 0.0 Basophils % 0.1 Nucleated Red 0.5 H Blood Cells % Immature 0.780 H Granulocytes # Neutrophils # 15.5 H Lymphocytes # 0.6 L Monocytes # 0.3 Eosinophils # 0.0 Basophils # 0.0 Nucleated Red 0.1 H Blood Cells # Home Meds Reported Medications Ondansetron Hcl* (Zofran*) 8 Mg Tablet, 8 MG PO Q6H PRN for NAUSEA AND OR VOMI TING, TAB 07/28/18 Guaifenesin (Xpect) 400 Mg Tablet, 400 MG PO Q12, TAB 07/28/18 Acetaminophen* (Acetaminophen*) 650 Mg Tablet, 650 MG PO Q6H PRN for PAIN AND OR ELEVATED TEMP, #30 TAB 07/28/18 Trazodone Hcl* (Trazodone Hcl*) 50 Mg Tablet, 50 MG PO QHS, #30 TAB 07/28/18 Carisoprodol* (Carisoprodol*) 350 Mg Tablet, 350 MG PO BID PRN for MUSCLE SPASMS, TAB 07/28/18 Montelukast Sodium* (Singulair*) 10 Mg Tablet, 10 MG PO QHS, #30 TAB 07/28/18 Sennosides* (Senna Lax*) 8.6 Mg Tablet, 2 TAB PO QHS, TAB 07/28/18 Fluoxetine Hcl* (Prozac*) 20 Mg Capsule, 20 MG PO DAILY, CAP 07/28/18 Promethazine Hcl* (Phenergan* Liq) 6.25 Mg/5 Ml Syrup, 12.5 MG PO Q6H PRN for COUGH, ML 07/28/18 Lansoprazole* (Lansoprazole*) 30 Mg Capsule.dr, 30 MG PO DAILY, CAP 07/28/18 Vit C/E/Zn/Coppr/Lutein/Zeaxan (Preservision Areds 2 Softgel) 1 Each Capsule, 2 EACH PO DAILY, CAP 07/28/18 Prednisone* (Prednisone*) 20 Mg Tab, 40 MG PO DAILY, TAB 07/28/18 Chlorhexidine Gluconate (Peridex) 473 Ml Mouthwash, 15 ML MM BID, BOTTLE 07/28/18 [place]-3 Acid Ethyl Esters (Lovaza) 1 Gm Capsule, 2 GM PO DAILY, CAP 07/28/18 Hydrocodone/Acetaminophen ([place] 10-325 Tablet) 1 Each Tablet, 1 EACH PO Q4 PRN for SEVERE PAIN LEVEL 7-10, TAB 07/28/18 Multivitamins* (Theragran*) 1 Tab Tab, 1 TAB PO DAILY, TAB 07/28/18 Guaifenesin (Guaifenesin) 600 Mg Tablet.sa, 600 MG PO BID, TAB 07/28/18 Magnesium Hydroxide* (Milk Of Magnesia*) 400 Mg/5 Ml Oral.susp, 30 ML PO DAILY PRN for CHEST PAIN, ML 07/28/18 Metoprolol Tartrate* (Lopressor*) 50 Mg Tab, 50 MG PO DAILY, #60 TAB HOLD FOR SBP<110 OR HR<60 07/28/18 Atorvastatin Calcium (Atorvastatin Calcium) 10 Mg Tablet, 10 MG PO QHS, #30 TAB 07/28/18 Lidocaine (Lidocaine) 5 Gm Cream..g., 5 GM TP DAILY 07/28/18 Furosemide* (Lasix*) 20 Mg Tablet, 20 MG PO DAILY, TAB 07/28/18 Lactobacillus Rhamnosus* (Culturelle*) 1 Each Cap.sprink, 1 CAP PO DAILY, CAP 07/28/18 Ipratropium-Albuterol (Ipratropium-Albuterol) 0.5-3 Mg/3 Ml Ampul.neb, 3 ML INHALATION Q4 PRN for SHORTNESS OF BREATH, #30 VIAL 07/28/18 Gabapentin* (Gabapentin*) 100 Mg Capsule, 200 MG PO BID, #180 CAP 07/28/18 Folic Acid* (Folic Acid*) 1 Mg Tablet, 1 MG PO DAILY, TAB 07/28/18 Ferrous Sulfate* (Ferrous Sulfate*) 325 Mg Tabec, 325 MG PO TID, TAB 07/28/18 Estrogens Conjugated* (Premarin*) 0.45 Mg Tablet, 0.45 MG PO DAILY, TAB 07/28/18 Bisacodyl (Dulcolax) 10 Mg Supp.rect, 10 MG RC Q48, SUPP.RECT 07/28/18 Docusate Sodium* (Colace*) 100 Mg Capsule, 100 MG PO QHS PRN for CONSTIPATION, #60 CAP 07/28/18 Hydromorphone Hcl* (Dilaudid*) 2 Mg Tablet, 2 MG PO Q6H PRN for SEVERE PAIN LEVEL 7-10, TAB 07/28/18 Cyanocobalamin* (Vitamin B12*) 500 Mcg Tab, 500 MCG PO DAILY, TAB 07/28/18 Clonidine Hcl* (Clonidine Hcl*) 0.1 Mg Tab, 0.1 MG PO Q8, TAB 07/28/18 Clonazepam* (Clonazepam*) 0.5 Mg Tablet, 0.5 MG PO BID PRN for ANXIETY, TAB 07/28/18 Calcium Carbonate/Vitamin D3 ([place] 500+D Tablet) 1 Each Tablet, 1 EACH PO BID, TAB 07/28/18 Fluticasone/Vilanterol (Breo Ellipta 200-25 Mcg INH) 1 Each Blst.w.dev, 1 PUFF INHALATION DAILY, #1 INHALER 07/28/18 Lorazepam* (Lorazepam*) 0.5 Mg Tablet, 0.5 MG PO Q6 PRN for ANXIETY, TAB 07/28/18 Diphenhydramine Hcl* (Benadryl*) 25 Mg Cap, 25 MG PO Q8 PRN for PRN, CAP 07/28/18 Aspirin* (Aspirin* Chew) 81 Mg Tab.chew, 81 MG PO DAILY, TAB.CHEW 07/28/18 Ascorbic Acid* (Vitamin C*) 500 Mg Capsule.sa, 500 MG PO TID, CAP 07/28/18 Apixaban* (Eliquis*) 5 Mg Tablet, 5 MG PO BID, TAB 07/28/18 Hydrocortisone Acetate (Anusol-Hc) 25 Mg Supp.rect, 25 MG MD BID PRN for CONSTIPATION, SUPP.RECT 07/28/18 Amiodarone Hcl* (Amiodarone Hcl*) 200 Mg Tablet, 200 MG PO BID, #30 TAB HOLD FOR SBP<110 OR HR<60 07/28/18 Medications Current Medications Vancomycin HCl (Vanco Iv Per Pharmacy) VANCOMYCIN PER PHARMACY PER PROTOCOL XX ; Start 07/28/18 at 17:30 Albuterol/ Ipratropium (Duoneb) 3 ml Q6H RESP THERAPY HHN Last administered on 08/02/18 01:07; Admin Dose 3 ML; Start 07/28/18 at 20:00; Status Hold Calcium/Vitamin D ([place]yster Shell/ Vit-D (500/200)) 1 tab BID PO Last admin istered on 08/08/18 09:52; Admin Dose 1 TAB; Start 07/28/18 at 21:00 Clonazepam (Klonopin) 0.5 mg BID PRN PO ANXIETY Last administered on 08/04/18 21:00; Admin Dose 0.5 MG; Start 07/28/18 at 21:00 Clonidine (Catapres) 0.1 mg TID PRN PO ELEVATED BLOOD PRESSURE Last administered on 07/29/18at 16:54; Admin Dose 0.1 MG; Start 07/28/18 at 21:00 Hydromorphone HCl (Dilaudid) 2 mg Q4H PRN PO SEVERE PAIN LEVEL 7-10 Last administered on 08/01/18 23:34; Admin Dose 2 MG; Start 07/28/18 at 21:00 Docusate Sodium (Colace) 100 mg BID PRN PO CONSTIPATION; Start 07/28/18 at 21:00 Gabapentin (Neurontin) 200 mg BID PO Last administered on 08/08/18 09:54; Admin Dose 200 MG; Start 07/28/18 at 21:00 Magnesium Hydroxide (Milk Of Mag) 30 ml DAILY PRN PO CONSTIPATION; Start 07/28/18 at 21:00 Acetaminophen/ Hydrocodone Bitart ([place] (10/325)) 1 tab Q4H PRN PO MODERATE PAIN LEVEL 4-6 Last administered on 08/01/18 21:02; Admin Dose 1 TAB; Start 07/28/18 at 21:00 Carisoprodol (Soma) 350 mg BID PRN PO MUSCLE SPASMS; Start 07/28/18 at 21:00 Trazodone HCl (Desyrel) 50 mg HS PRN PO INSOMNIA Last administered on 07/29/18 20:29; Admin Dose 50 MG; Start 07/28/18 at 21:00 Ondansetron HCl (Zofran Inj) 4 mg Q6H PRN IV NAUSEA AND/OR VOMITING; Start 07/28/18 at 21:00 Methylprednisolone Sodium Succinate (Solu-Medrol) 40 mg DAILY IV Last administered on 08/08/18 09:54; Admin Dose 40 MG; Start 07/29/18 at 09:00 Ascorbic Acid (Vitamin C) 500 mg TID PO Last administered on 08/08/18 13:48; Admin Dose 500 MG; Start 07/29/18 at 09:00 Lorazepam (Ativan) 0.5 mg Q6H PRN PO ANXIETY Last administered on 08/05/18 04:06; Admin Dose 0.5 MG; Start 07/29/18 at 20:30 Guaifenesin/ Dextromethorphan (Robitussin Dm Liquid Cup) 5 ml Q4H PRN PO COUGH Last administered on 08/01/18 16:32; Admin Dose 5 ML; Start 07/29/18 at 20:30 Diltiazem HCl 125 ml @ 5 mls/hr TITRATE IV Last administered on 07/30/18 09:40; Admin Dose 5 MLS/HR; Start 07/30/18 at 09:00; Status Hold Dronedarone (Multaq) 400 mg BID WITH MEALS PO Last administered on 08/08/18 09:52; Admin Dose 400 MG; Start 07/30/18 at 09:30 Propofol 100 ml @ 1.986 mls/ hr Q12H IV Last administered on 08/05/18 06:36; Admin Dose 11.916 MLS/HR; Start 08/02/18 at 10:00 Albuterol (Ventolin Hfa) 4 puff Q6H RESP THERAPY INH Last administered on 08/08/18 15:53; Admin Dose 4 PUFF; Start 08/02/18 at 14:00 Ipratropium [place] (Atrovent Hfa) 4 puff Q6H RESP THERAPY INH Last administered on 08/08/18 15:53; Admin Dose 4 PUFF; Start 08/02/18 at 14:00 Fluconazole/ Sodium Chloride 50 ml @ 50 mls/hr Q24H IVPB Last administered on 08/07/18 16:49; Admin Dose 50 MLS/HR; Start 08/02/18 at 17:00 Acetaminophen (Tylenol Liquid) 650 mg Q6H PRN GTB MILD PAIN (1-3) OR TEMPERATURE; Start 08/03/18 at 09:30 Docusate Sodium (Colace Liquid Cup) 100 mg BID PRN GTB CONSTIPATION,,,,; Start 08/03/18 at 09:30 IV Flush (NS 10 ml) 10 ml PRN PRN IV IV PROTOCOL; Start 08/03/18 at 10:30 Fentanyl 100 ml @ 2.5 mls/hr TITRATE IV Last administered on 08/08/18 13:51; Admin Dose 5 MLS/HR; Start 08/04/18 at 09:00 Lansoprazole (Prevacid) 30 mg DAILY@06 GTB Last administered on 08/08/18 05:14; Admin Dose 30 MG; Start 08/05/18 at 06:00 Midazolam HCl 50 ml @ 1 mls/hr TITRATE IV Last administered on 08/08/18 05:30; Admin Dose 5 MLS/HR; Start 08/05/18 at 12:00 Norepinephrine 250 ml @ 1.875 mls/ hr TITRATE IV Last administered on 08/05/18 13:00; Admin Dose 30 MLS/HR; Start 08/05/18 at 13:00 Sodium Chloride 1,000 ml @ 50 mls/hr Q20H IV Last administered on 08/08/18 10:19; Admin Dose 50 MLS/HR; Start 08/06/18 at 08:00 Meropenem/Sodium Chloride 50 ml @ 100 mls/hr Q12 IVPB Last administered on 08/08/18 11:34; Admin Dose 100 MLS/HR; Start 08/06/18 at 21:00 Phenylephrine HCl 80 mg/Dextrose 250 ml @ 18.75 mls/ hr TITRATE IV Last administered on 08/08/18 03:03; Admin Dose 24.38 MLS/HR; Start 08/06/18 at 15:30 Vancomycin/Sodium Chloride 250 ml @ 125 mls/hr Q48H IVPB ; Start 08/09/18 at 11:00 Levofloxacin/ Dextrose 50 ml @ 50 mls/hr DAILY IVPB Last administered on 2/2/19at 09:54; Admin Dose 50 MLS/HR; Start 08/08/18 at 09:00 Assessment/Plan Hospital Course (Demo Recall) 1. Hypoxemic respiratory failure: Status post intubation on the vent now 2. Pulmonary fibrosis/severe COPD 3. Elevated BNP most likely secondary to above and significant pulmonary hypertension 4. paroxysmal atrial fibrillation; currently converted back to normal sinus rhythm 5. Encephalopathy 6. pneumonia 7. History of recent fall and hip fracture status post surgery 8. Anemia and OB positive stool 9. Lactic acidosis 10. Hypertension 11. Pulmonary hypertension 12.shock. sepsis 13. Acute encephalopathy has a letter of consciousness 14. Thrombocytopenia Recommendations: off the Eliquis given her OB positive stool as well as thrombocytopenia and worsening anemia Continue with vent support. Antibiotic management as per internal medicine We will continue to monitor on telemetry Correct electrolytes as needed Transfusions as needed off the amiodarone given concern about her severe pulmonary disease and pulmonary fibrosis. cont Multaq TSH is within normal limits Given her pulmonary hypertension and was started on Revatio but she is too hypotensive to tolerate and has been stopped now. Continue with vent support. CT of the head to be taken once patient is stable to go there. . Thank you for his referral. We will continue to follow along with you DAYRON ROGERS MD [facility] DAYRON ROGERS MD Aug 08, 2018 17:17
[2018-08-08] MEDS: FLUCONAZOLE 100 MG/50 ML (PMX) 50 ML IVPB SCH (17:56)
[2018-08-09] VITALS (83 sets, daily range): BP systolic 111–132; BP diastolic 38–83; PULSE 63–93; RESP 13–24
[2018-08-09] MEDS: ALBUTEROL HFA 8 GM INHALER INH SCH ×4 (01:14→19:45)
[2018-08-09] MEDS: IPRATROPIUM (HFA) 12.9 GM INHALER INH SCH ×4 (01:14→19:45)
[2018-08-09] MEDS: PHENYLephrine 80 MG in DEXTROSE 5% 242 ML IV SCH (01:42)
[2018-08-09] MEDS: MIDAZOLAM (DRIP) 50 mg/50 mL 50 ML IV SCH ×2 (05:24→16:32)
[2018-08-09] MEDS: LANSOPRAZOLE 30 MG CAP GTB SCH (06:38)
[2018-08-09] MEDS: PROPOFOL 100 ML IV SCH (07:45)
[2018-08-09] MEDS: SOD CHLORIDE 0.45% 1,000 ML IV SCH (08:00)
--- NOTE | 2018-08-09 08:07 | CONS ---
Assessment/Plan Assessment/Plan Assessment/Plan (Daily) Ventilator setting; AC of 24, tidal volume 500, PEEP of 10, 55% FiO2. Patient is currently on fentanyl 50 mics per hour, Versed 5 mg/h. Chest x-ray from today is pending. Assessment and recommendations; 1. Patient admitted with respiratory failure due to severe bilateral pneumonia with ARDS with some improvement in oxygenation. 2. Underlying hypercapnia as well 3. History of prior tracheostomy with decannulation. 4. History of metastatic mass, apparently benign. 5. History of neuropathy. 6. Severe anemia. 7. Severe thrombocytopenia. 8. Worsening renal function. 9. History of systemic and pulmonary hypertension. 10. History of depression. Obtain ABG on current ventilator settings. Continue current supportive care. Transfuse 1 unit packed RBC. Further recommendations once ABG is performed. Prognosis is very guarded at this point. 35 minutes of critical care time was spent evaluating the patient. Consultation Date/Type/Reason Admit Date/Time Jul 28, 2018 at 18:16 Initial Consult Date 07/28/18 Type of Consult Pulmonary Requesting Provider: ABDIAS STAPLES MD Date/Time of Note DATE: 08/09/18 TIME: 08:04 24 HR Interval Summary Free Text/Dictation Patient's condition remains critical. Still requiring fairly high FiO2. Although improved. General exam; elderly female, orally intubated, sedated, currently in no dist ress. Exam/Review of Systems Exam Vitals Vital Signs Date Temp Pulse Resp B/P (MAP) Pulse Ox O2 O2 Flow FiO2 Time Delivery Rate 08/09/18 97.4 70 24 122/50 98 Mechanical 08:00 (74) Ventilator 08/09/18 55 04:35 Intake and Output 08/08/18 08/08/18 08/09/18 1515:00 23:00 07:00 IntakeIntake Total 646.33 ml 1015.62 ml 895.92 ml OutputOutput Total 390 ml 460 ml 380 ml BalanceBalance 256.33 ml 555.62 ml 515.92 ml Exam H EENT exam; supple neck, no JVD. No lymphadenopathy. Midline trachea. No thyromegaly. Patient is edentulous. Orally intubated. There is a well-healed tracheostomy scar. Chest exam; diminished breath sounds bilaterally. With minimal scattered crackles. S1-S2 audible, no murmurs. Regular rhythm. Abdomen exam; soft, nondistended. No organomegaly. Bowel sounds audible. Extremity exam; 1+ anasarca with multiple ecchymosis. WRAPPER AND PRESERVER exam; patient is sedated. Results Result Diagram: 08/09/18 0537 08/09/18 0509 Results 24hrs Laboratory Tests Test 08/08/18 08:30 08/08/18 10:18 08/08/18 15:57 08/09/18 05:09 Blood Gas Specimen Blood arterial Source Arterial Blood 08/08/2018 8:36:24 Date Drawn AM Arterial Blood pH 7.255 *L (Temp corrected) Arterial Blood 49.7 H pCO2 (Temp correct) Arterial Blood pO2 97.2 H (Temp corrected) Arterial Blood 21.6 L HCO3 Arterial Blood -5.4 L Base Excess Arterial Blood 96.7 Oxygen Saturation Vick Test ACCEPTAB Arterial Blood Gas Right Radial Puncture Site Arterial 0.2 Blood Carboxyhemog lobin Arterial Blood 0.2 Methemoglobin Blood Gas A-a O2 348.5 H Differential Oxyhemoglobin 96.3 Percent Blood Gas 37.0 Temperature Blood Gas 24.0 Respiration Rate Blood Gas Actual 24 Respiration Rate Blood Gas Modality VENT - AC FiO2 70.0 Blood Gas Tidal 500.0 Volume Blood Gas Low PEEP 10.0 Setting Blood Gas Critical P. IIUORE RN Value Read Back Blood Gas Notified Whom Blood Gas Notified 08/08/2018 8:45:11 Time AM Sodium Level 136 138 139 Potassium Level 5.8 H 5.7 H 5.4 H Chloride Level 109 108 112 H Carbon Dioxide 23 21 24 Level Anion Gap 4 L 9 # 3 L Blood Urea 81 H 84 H 84 H Nitrogen Creatinine 1.68 H 1.64 H 1.74 H Est Glomerular Filtrat Rate mL/min Glucose Level 116 # 131 128 Calcium Level 8.6 8.6 8.4 Phosphorus Level 4.3 5.0 H Magnesium Level 2.4 2.4 White Blood Count 17.2 H Red Blood Count 2.33 L Hemoglobin 7.3 L Hematocrit 24.4 L Mean Corpuscular 104.7 H Volume Mean Corpuscular 31.3 Hemoglobin Mean Corpuscular 29.9 L Hemoglobin Concent Red Cell 19.4 H Distribution Width Platelet Count 40 L Mean Platelet Volume Immature 4.500 H Granulocytes % Neutrophils % 90.4 H Lymphocytes % 3.3 L Monocytes % 1.7 Eosinophils % 0.0 Basophils % 0.1 Nucleated Red 0.5 H Blood Cells % Immature 0.780 H Granulocytes # Neutrophils # 15.5 H Lymphocytes # 0.6 L Monocytes # 0.3 Eosinophils # 0.0 Basophils # 0.0 Nucleated Red 0.1 H Blood Cells # Test 08/09/18 05:37 White Blood Count 12.8 #H Red Blood Count 2.21 L Hemoglobin 7.0 L Hematocrit 22.7 L Mean Corpuscular 102.7 H Volume Mean Corpuscular 31.7 Hemoglobin Mean Corpuscular 30.8 L Hemoglobin Concent Red Cell 19.2 H Distribution Width Platelet Count 43 L Mean Platelet Volume Immature 4.100 H Granulocytes % Neutrophils % 85.2 H Lymphocytes % 6.0 L Monocytes % 4.6 Eosinophils % 0.0 Basophils % 0.1 Nucleated Red 0.7 H Blood Cells % Immature 0.520 H Granulocytes # Neutrophils # 10.9 H Lymphocytes # 0.8 Monocytes # 0.6 Eosinophils # 0.0 Basophils # 0.0 Nucleated Red 0.1 H Blood Cells # Medications Medication Current Medications Vancomycin HCl (Vanco Iv Per Pharmacy) VANCOMYCIN PER PHARMACY PER PROTOCOL XX ; Start 07/28/18 at 17:30 Albuterol/ Ipratropium (Duoneb) 3 ml Q6H RESP THERAPY HHN Last administered on 08/02/18at 01:07; Admin Dose 3 ML; Start 07/28/18 at 20:00; Status Hold Calcium/Vitamin D ([place]/ Vit-D (500/200)) 1 tab BID PO Last administered on 08/08/18 21:17; Admin Dose 1 TAB; Start 07/28/18 at 21:00 Clonazepam (Klonopin) 0.5 mg BID PRN PO ANXIETY Last administered on 08/04/18at 21:00; Admin Dose 0.5 MG; Start 07/28/18 at 21:00 Clonidine (Catapres) 0.1 mg TID PRN PO ELEVATED BLOOD PRESSURE Last administered on 07/29/18at 16:54; Admin Dose 0.1 MG; Start 07/28/18 at 21:00 Hydromorphone HCl (Dilaudid) 2 mg Q4H PRN PO SEVERE PAIN LEVEL 7-10 Last administered on 08/01/18at 23:34; Admin Dose 2 MG; Start 07/28/18 at 21:00 Docusate Sodium (Colace) 100 mg BID PRN PO CONSTIPATION; Start 07/28/18 at 21:00 Gabapentin (Neurontin) 200 mg BID PO Last administered on 08/08/18 21:17; Admin Dose 200 MG; Start 07/28/18 at 21:00 Magnesium Hydroxide (Milk Of Mag) 30 ml DAILY PRN PO CONSTIPATION; Start 07/28/18 at 21:00 Acetaminophen/ Hydrocodone Bitart ([place] (10/325)) 1 tab Q4H PRN PO MODERATE PAIN LEVEL 4-6 Last administered on 08/01/18 21:02; Admin Dose 1 TAB; Start 07/28/18 at 21:00 Carisoprodol (Soma) 350 mg BID PRN PO MUSCLE SPASMS; Start 07/28/18 at 21:00 Trazodone HCl (Desyrel) 50 mg HS PRN PO INSOMNIA Last administered on 07/29/18 20:29; Admin Dose 50 MG; Start 07/28/18 at 21:00 Ondansetron HCl (Zofran Inj) 4 mg Q6H PRN IV NAUSEA AND/OR VOMITING; Start 07/28/18 at 21:00 Methylprednisolone Sodium Succinate (Solu-Medrol) 40 mg DAILY IV Last administered on 08/08/18 09:54; Admin Dose 40 MG; Start 07/29/18 at 09:00 Ascorbic Acid (Vitamin C) 500 mg TID PO Last administered on 08/08/18 21:17; Admin Dose 500 MG; Start 07/29/18 at 09:00 Lorazepam (Ativan) 0.5 mg Q6H PRN PO ANXIETY Last administered on 08/05/18 04:06; Admin Dose 0.5 MG; Start 07/29/18 at 20:30 Guaifenesin/ Dextromethorphan (Robitussin Dm Liquid Cup) 5 ml Q4H PRN PO COUGH Last administered on 08/01/18 16:32; Admin Dose 5 ML; Start 07/29/18 at 20:30 Diltiazem HCl 125 ml @ 5 mls/hr TITRATE IV Last administered on 07/30/18 09: 40; Admin Dose 5 MLS/HR; Start 07/30/18 at 09:00; Status Hold Dronedarone (Multaq) 400 mg BID WITH MEALS PO Last administered on 08/08/18 17:57; Admin Dose 400 MG; Start 07/30/18 at 09:30 Propofol 100 ml @ 1.986 mls/ hr Q12H IV Last administered on 08/05/18 06:36; Admin Dose 11.916 MLS/HR; Start 08/02/18 at 10:00 Albuterol (Ventolin Hfa) 4 puff Q6H RESP THERAPY INH Last administered on 08/09 01:14; Admin Dose 4 PUFF; Start 08/02/18 at 14:00 Ipratropium [place] (Atrovent Hfa) 4 puff Q6H RESP THERAPY INH Last administered on 08/09/18 01:14; Admin Dose 4 PUFF; Start 08/02/18 at 14:00 Fluconazole/ Sodium Chloride 50 ml @ 50 mls/hr Q24H IVPB Last administered on 08/08/18 17:56; Admin Dose 50 MLS/HR; Start 08/02/18 at 17:00 Acetaminophen (Tylenol Liquid) 650 mg Q6H PRN GTB MILD PAIN (1-3) OR TEMPERATURE; Start 08/03/18 at 09:30 Docusate Sodium (Colace Liquid Cup) 100 mg BID PRN GTB CONSTIPATION,,,,; Start 08/03/18 at 09:30 IV Flush (NS 10 ml) 10 ml PRN PRN IV IV PROTOCOL; Start 08/03/18 at 10:30 Fentanyl 100 ml @ 2.5 mls/hr TITRATE IV Last administered on 08/08/18 13:51; Admin Dose 5 MLS/HR; Start 08/04/18 at 09:00 Lansoprazole (Prevacid) 30 mg DAILY@06 GTB Last administered on 08/09/18 06:38; Admin Dose 30 MG; Start 08/05/18 at 06:00 Midazolam HCl 50 ml @ 1 mls/hr TITRATE IV Last administered on 08/09/18 05:24; Admin Dose 5 MLS/HR; Start 08/05/18 at 12:00 Norepinephrine 250 ml @ 1.875 mls/ hr TITRATE IV Last administered on 08/05/18 13:00; Admin Dose 30 MLS/HR; Start 08/05/18 at 13:00 Sodium Chloride 1,000 ml @ 50 mls/hr Q20H IV Last administered on 08/08/18at 10:19; Admin Dose 50 MLS/HR; Start 08/06/18 at 08:00 Meropenem/Sodium Chloride 50 ml @ 100 mls/hr Q12 IVPB Last administered on 08/08/18at 21:17; Admin Dose 100 MLS/HR; Start 08/06/18 at 21:00 Phenylephrine HCl 80 mg/Dextrose 250 ml @ 18.75 mls/ hr TITRATE IV Last administered on 08/09/18at 01:42; Admin Dose 6.56 MLS/HR; Start 08/06/18 at 15:30 Vancomycin/Sodium Chloride 250 ml @ 125 mls/hr Q48H IVPB ; Start 08/09/18 at 11:00 Levofloxacin/ Dextrose 50 ml @ 50 mls/hr DAILY IVPB Last administered on 08/08/18at 09:54; Admin Dose 50 MLS/HR; Start 08/08/18 at 09:00 DEJUAN OSULLIVAN Aug 09, 2018 08:07
[2018-08-09] MEDS: METHYLPREDNISOLONE 40 MG INJ IV SCH (08:26)
[2018-08-09] MEDS: CALCIUM/VITAMIN D (500/200) TAB PO SCH ×2 (08:27→20:18)
[2018-08-09] MEDS: DRONEDARONE HYDROCHLORIDE 400 MG TAB PO SCH ×2 (08:27→16:31)
[2018-08-09] MEDS: LEVOFLOXACIN 250MG/D5W (PMX) 50 ML IVPB SCH (08:27)
[2018-08-09] MEDS: GABAPENTIN 100 MG CAP PO SCH ×2 (08:27→20:18)
[2018-08-09] MEDS: ASCORBIC ACID 500 MG TAB PO SCH ×3 (08:27→20:18)
[2018-08-09] MEDS: MEROPENEM 1 GM/50ML(PMX) 50 ML IVPB SCH (08:27)
--- NOTE | 2018-08-09 10:59 | CONS ---
Assessment/Plan Assessment/Plan Hospital Course (Demo Recall) ID PROGRESS NOTE CURRENT ABX: DAY # => Vanco IV + Merrem + Diflucan + Levaquin 24H INTERVAL SUMMARY * No new issues since yesterday -- Remains sedated on Versed, on Matt pressors, orally intubated, critically ill in the ICU * WBC elevated -- she has been on IV steroids this admission * Endotracheal tube and NG tube Landis catheter PICC line * CXR 08/07/18 IMPRESSION:1. No significant interval change in diffuse bilateral interstitial prominence and patchy infiltrates. 2. Lines and tubes as above. MICRO/OTHER * (-)MRSA Nares, (-)Influenza A/B * 08/06/18 ETT ASPIRATE: RESPIRATORY CULTURE Final Organism 1 METHICILLIN RESISTANT S.AUREUS QUANTITY SCANT GROWTH . MULTI DRUG RESISTANT ORGANISM Organism 2 SHEN ALBICANS QUANTITY SCANT GROWTH * Sputum (+)C.Albicans * 07/30/18 BCx * 07/28/18 BCx(+)CoNS PHYSICAL EXAMINATION: GENERAL: Afebrile, on pressors, Sedated on Versed, on Matt pressors, orally intubated, critically ill in the ICU HEENT: AT, NC, anicteric, ETT in place secure NECK: Supple, trach midline CHEST: Equal chest rise bilaterally, vented, course HEART: Pulse RRR ABDOMEN: Soft / NT EXTREMITIES: Warm, dry == (+)generalized edema SKIN: No rash, no diaphoresis, (+) BUEXT ecchymosis, petechiae ID ASSESSMENT 73 yo F admit with: 1. Severe sepsis, present on admission * Leukocytosis improved -- note has been on IV steroids 2. Acute on chronic respiratory failure, status post intubation 08/02/18 3. Healthcare associated pneumonia/ARDS * 08/06/18 RESPIRATORY CULTURE Final Organism 1 METHICILLIN RESISTANT S.AUREUS Organism 2 SHEN ALBICANS 4. Coag negative staph bacteremia, possibly contaminant 5. Anemia with progressive thrombocytopenia 6. Leukocytosis likely steroid-induced 5. Peripheral arterial disease status post stent 6. Pancreatic head mass, patient is following with a specialist yearly 7. Recent right hip fracture status post surgical intervention (-)MRSA Nares ABX ALLERGIES: PCN/Tetracyclines INVASIVES: PIV CURRENT ABX: DAY # => Vanco IV + Merrem + Diflucan + Levaquin ID RECOMMENDATIONS/PLAN: 1. Continue current ABX 2. DC --De-escalate ABX -- sputum is growing (+)MRSA = DC Merrem . Consultation Date/Type/Reason Admit Date/Time Jul 28, 2018 at 18:16 Initial Consult Date 07/28/18 Requesting Provider: ABDIAS STAPLES MD Date/Time of Note DATE: 08/09/18 TIME: 10:56 Exam/Review of Systems Exam Vitals Vital Signs Date Temp Pulse Resp B/P (MAP) Pulse Ox O2 O2 Flow FiO2 Time Delivery Rate 08/09/18 45 08:45 08/09/18 71 08:01 08/09/18 97.4 24 122/50 98 Mechanical 08:00 (74) Ventilator Intake and Output 08/08/18 08/08/18 08/09/18 1515:00 23:00 07:00 IntakeIntake Total 646.33 ml 1015.62 ml 912.48 ml OutputOutput Total 390 ml 460 ml 380 ml BalanceBalance 256.33 ml 555.62 ml 532.48 ml Results Result Diagram: 08/09/18 0537 08/09/18 0509 Results 24hrs Laboratory Tests Test 08/08/18 15:57 08/09/18 05:09 08/09/18 05:37 White Blood Count 17.2 H 12.8 #H Red Blood Count 2.33 L 2.21 L Hemoglobin 7.3 L 7.0 L Hematocrit 24.4 L 22.7 L Mean Corpuscular Volume 104.7 H 102.7 H Mean Corpuscular Hemoglobin 31.3 31.7 Mean Corpuscular Hemoglobin Concent 29.9 L 30.8 L Red Cell Distribution Width 19.4 H 19.2 H Platelet Count 40 L 43 L Mean Platelet Volume Immature Granulocytes % 4.500 H 4.100 H Neutrophils % 90.4 H 85.2 H Lymphocytes % 3.3 L 6.0 L Monocytes % 1.7 4.6 Eosinophils % 0.0 0.0 Basophils % 0.1 0.1 Nucleated Red Blood Cells % 0.5 H 0.7 H Immature Granulocytes # 0.780 H 0.520 H Neutrophils # 15.5 H 10.9 H Lymphocytes # 0.6 L 0.8 Monocytes # 0.3 0.6 Eosinophils # 0.0 0.0 Basophils # 0.0 0.0 Nucleated Red Blood Cells # 0.1 H 0.1 H Sodium Level 138 139 Potassium Level 5.7 H 5.4 H Chloride Level 108 112 H Carbon Dioxide Level 21 24 Anion Gap 9 # 3 L Blood Urea Nitrogen 84 H 84 H Creatinine 1.64 H 1.74 H Est Glomerular Filtrat Rate mL/min Glucose Level 131 128 Calcium Level 8.6 8.4 Phosphorus Level 5.0 H Magnesium Level 2.4 Medications Medication Current Medications Vancomycin HCl (Vanco Iv Per Pharmacy) VANCOMYCIN PER PHARMACY PER PROTOCOL XX ; Start 07/28/18 at 17:30 Albuterol/ Ipratropium (Duoneb) 3 ml Q6H RESP THERAPY HHN Last administered on 08/02/18at 01:07; Admin Dose 3 ML; Start 07/28/18 at 20:00; Status Hold Calcium/Vitamin D (Oyster Shell/ Vit-D (500/200)) 1 tab BID PO Last administered on 08/09/18 08:27; Admin Dose 1 TAB; Start 07/28/18 at 21:00 Clonazepam (Klonopin) 0.5 mg BID PRN PO ANXIETY Last administered on 08/04/18 21:00; Admin Dose 0.5 MG; Start 07/28/18 at 21:00 Clonidine (Catapres) 0.1 mg TID PRN PO ELEVATED BLOOD PRESSURE Last administered on 07/29/18at 16:54; Admin Dose 0.1 MG; Start 07/28/18 at 21:00 Hydromorphone HCl (Dilaudid) 2 mg Q4H PRN PO SEVERE PAIN LEVEL 7-10 Last administered on 08/01/18 23:34; Admin Dose 2 MG; Start 07/28/18 at 21:00 Docusate Sodium (Colace) 100 mg BID PRN PO CONSTIPATION; Start 07/28/18 at 21:00 Gabapentin (Neurontin) 200 mg BID PO Last administered on 08/09/18 08:27; Admin Dose 200 MG; Start 07/28/18 at 21:00 Magnesium Hydroxide (Milk Of Mag) 30 ml DAILY PRN PO CONSTIPATION; Start 07/28/18 at 21:00 Acetaminophen/ Hydrocodone Bitart ([place] (10/325)) 1 tab Q4H PRN PO MODERATE PAIN LEVEL 4-6 Last administered on 08/01/18 21:02; Admin Dose 1 TAB; Start 07/28/18 at 21:00 Carisoprodol (Soma) 350 mg BID PRN PO MUSCLE SPASMS; Start 07/28/18 at 21:00 Trazodone HCl (Desyrel) 50 mg HS PRN PO INSOMNIA Last administered on 07/29/18 20:29; Admin Dose 50 MG; Start 07/28/18 at 21:00 Ondansetron HCl (Zofran Inj) 4 mg Q6H PRN IV NAUSEA AND/OR VOMITING; Start 07/28/18 at 21:00 Methylprednisolone Sodium Succinate (Solu-Medrol) 40 mg DAILY IV Last administered on 08/09/18 08:26; Admin Dose 40 MG; Start 07/29/18 at 09:00 Ascorbic Acid (Vitamin C) 500 mg TID PO Last administered on 08/09/18 08:27; A dmin Dose 500 MG; Start 07/29/18 at 09:00 Lorazepam (Ativan) 0.5 mg Q6H PRN PO ANXIETY Last administered on 08/05/18 04:06; Admin Dose 0.5 MG; Start 07/29/18 at 20:30 Guaifenesin/ Dextromethorphan (Robitussin Dm Liquid Cup) 5 ml Q4H PRN PO COUGH Last administered on 08/01/18 16:32; Admin Dose 5 ML; Start 07/29/18 at 20:30 Diltiazem HCl 125 ml @ 5 mls/hr TITRATE IV Last administered on 07/30/18 09:40; Admin Dose 5 MLS/HR; Start 07/30/18 at 09:00; Status Hold Dronedarone (Multaq) 400 mg BID WITH MEALS PO Last administered on 08/09/18 08:27; Admin Dose 400 MG; Start 07/30/18 at 09:30 Propofol 100 ml @ 1.986 mls/ hr Q12H IV Last administered on 08/05/18 06:36; Admin Dose 11.916 MLS/HR; Start 08/02/18 at 10:00 Albuterol (Ventolin Hfa) 4 puff Q6H RESP THERAPY INH Last administered on 08/09/18 08:44; Admin Dose 4 PUFF; Start 08/02/18 at 14:00 Ipratropium [place] (Atrovent Hfa) 4 puff Q6H RESP THERAPY INH Last administered on 08/09/18 08:44; Admin Dose 4 PUFF; Start 08/02/18 at 14:00 Fluconazole/ Sodium Chloride 50 ml @ 50 mls/hr Q24H IVPB Last administered on 08/08/18 17:56; Admin Dose 50 MLS/HR; Start 08/02/18 at 17:00 Acetaminophen (Tylenol Liquid) 650 mg Q6H PRN GTB MILD PAIN (1-3) OR TEMPERATURE; Start 08/03/18 at 09:30 Docusate Sodium (Colace Liquid Cup) 100 mg BID PRN GTB CONSTIPATION,,,,; Start 08/03/18 at 09:30 IV Flush (NS 10 ml) 10 ml PRN PRN IV IV PROTOCOL; Start 08/03/18 at 10:30 Fentanyl 100 ml @ 2.5 mls/hr TITRATE IV Last administered on 08/08/18 13:51; Admin Dose 5 MLS/HR; Start 08/04/18 at 09:00 Lansoprazole (Prevacid) 30 mg DAILY@06 GTB Last administered on 08/09/18 06:38; Admin Dose 30 MG; Start 08/05/18 at 06:00 Midazolam HCl 50 ml @ 1 mls/hr TITRATE IV Last administered on 08/09/18 05:24; Admin Dose 5 MLS/HR; Start 08/05/18 at 12:00 Norepinephrine 250 ml @ 1.875 mls/ hr TITRATE IV Last administered on 08/05/18 13:00; Admin Dose 30 MLS/HR; Start 08/05/18 at 13:00 Sodium Chloride 1,000 ml @ 50 mls/hr Q20H IV Last administered on 08/09/18 08:00; Admin Dose 50 MLS/HR; Start 08/06/18 at 08:00 Meropenem/Sodium Chloride 50 ml @ 100 mls/hr Q12 IVPB Last administered on 08/09/18 08:27; Admin Dose 100 MLS/HR; Start 08/06/18 at 21:00 Phenylephrine HCl 80 mg/Dextrose 250 ml @ 18.75 mls/ hr TITRATE IV Last administered on 08/09/18at 01:42; Admin Dose 6.56 MLS/HR; Start 08/06/18 at 15:30 Vancomycin/Sodium Chloride 250 ml @ 125 mls/hr Q48H IVPB ; Start 08/09/18 at 11:00 Levofloxacin/ Dextrose 50 ml @ 50 mls/hr DAILY IVPB Last administered on 08/09/18at 08:27; Admin Dose 50 MLS/HR; Start 08/08/18 at 09:00 TESSA DAVILA NP Aug 09, 2018 10:59
[2018-08-09] MEDS ORDERED: VANCOMYCIN 750 MG (PMX) 250 ML IVPB SCH (11:00)
[2018-08-09] MEDS: FENTAnyl (DRIP) 1000 mcg/100mL 100 ML IV SCH (11:00)
--- NOTE | 2018-08-09 12:34 | PN ---
Date/Time of Note Date/Time of Note DATE: 08/09/18 TIME: 12:34 Assessment/Plan VTE Prophylaxis Risk score (from [facility])>0 risk: 9 SCD applied (from [facility]): Yes SCD contraindicated: other Pharmacological prophylaxis: other Pharm contraindication: other Lines/Catheters IV [facility]ter Type (from [facility] PICC Line Central line still needed: Yes Urinary Cath still in place: Yes Reason Cath still needed: urinary retention Assessment/Plan Assessment/Plan - Hyperkalemia- kayexalate 60 gm ogt x 1 - Acute hypoxemic respiratory failure due to healthcare-acquired pneumonia/ ARDS. Continue ventilatory support, steroids. from pulmonary standpoint. - Anemia of acute blood loss secondary to nosebleed admission, resolved. status post blood transfusion, continue to monitor hemoglobin and hematocrit. - Sepsis with gram-positive bacteremia. Continue antibiotics per ID. Dr. Brown is following in infection disease consultation. - Bilateral pulmonary fibrosis. Continue supplemental oxygen and symptomatic treatment with steroids. - Chronic obstructive pulmonary disease. Continue DuoNeb and steroids. - Nonobstructive coronary artery disease as per cardiac catheterization in 2012. Dr. Frost is following from cardiac standpoint. - Paroxysmal atrial fibrillation. Patient had an episode of atrial fibrillation with rapid ventricular response and was on Cardizem drip, currently in sinus rhythm. - Hypertension. Continue metoprolol and Lasix. p.r.n. clonidine. - Peripheral artery disease, status post stent. - Dyslipidemia. Continue Lipitor. - MARQUES, Dr. Salazar from nephrology standpoint. - Recent right hip fracture, status post surgery. - Pancreatic head mass. As per patient, she has been going to a specialist every year for followup. - Anxiety and depression, continue Klonopin and Prozac. Critical care time spent more than 35 minutes. Further recommendations based on clinical course. Plan of care discussed with Dr. Pack. Result Diagram: 08/09/18 0537 08/09/18 0509 Results 24hrs Laboratory Tests Test 08/08/18 15:57 08/09/18 05:09 08/09/18 05:37 08/09/18 11:00 White Blood Count 17.2 H 12.8 #H Red Blood Count 2.33 L 2.21 L Hemoglobin 7.3 L 7.0 L Hematocrit 24.4 L 22.7 L Mean Corpuscular Volume 104.7 H 102.7 H Mean Corpuscular 31.3 31.7 Hemoglobin Mean Corpuscular 29.9 L 30.8 L Hemoglobin Concent Red Cell Distribution 19.4 H 19.2 H Width Platelet Count 40 L 43 L Mean Platelet Volume Immature Granulocytes % 4.500 H 4.100 H Neutrophils % 90.4 H 85.2 H Lymphocytes % 3.3 L 6.0 L Monocytes % 1.7 4.6 Eosinophils % 0.0 0.0 Basophils % 0.1 0.1 Nucleated Red Blood 0.5 H 0.7 H Cells % Immature Granulocytes # 0.780 H 0.520 H Neutrophils # 15.5 H 10.9 H Lymphocytes # 0.6 L 0.8 Monocytes # 0.3 0.6 Eosinophils # 0.0 0.0 Basophils # 0.0 0.0 Nucleated Red Blood 0.1 H 0.1 H Cells # Sodium Level 138 139 Potassium Level 5.7 H 5.4 H Chloride Level 108 112 H Carbon Dioxide Level 21 24 Anion Gap 9 # 3 L Blood Urea Nitrogen 84 H 84 H Creatinine 1.64 H 1.74 H Est Glomerular Filtrat Rate mL/min Glucose Level 131 128 Calcium Level 8.6 8.4 Phosphorus Level 5.0 H Magnesium Level 2.4 Urine Color YELLOW Urine Clarity CLEAR Urine pH 6.0 Urine Specific [place] 1.013 Urine Ketones NEGATIVE Urine Nitrite NEGATIVE Urine Bilirubin NEGATIVE Urine Urobilinogen NEGATIVE Urine Leukocyte Esterase NEGATIVE Urine Microscopic RBC 0 Urine Microscopic WBC 0 Urine Hemoglobin 2+ H Urine Glucose NEGATIVE Urine Total Protein 1+ H Exam/Review of Systems Exam Vitals Vital Signs Date Temp Pulse Resp B/P (MAP) Pulse Ox O2 O2 Flow FiO2 Time Delivery Rate 08/09/18 83 12:01 08/09/18 98.3 24 112/41 93 Mechanical 12:00 (64) Ventilator 08/09/18 45 08:45 Intake and Output 08/08/18 08/08/18 08/09/18 1515:00 23:00 07:00 IntakeIntake Total 646.33 ml 1015.62 ml 912.48 ml OutputOutput Total 390 ml 460 ml 380 ml BalanceBalance 256.33 ml 555.62 ml 532.48 ml Constitutional: non-verbal, frail Eyes: nl lids ENMT: nl external ears & nose Respiratory: diminished breath sounds Cardiovascular: nl pulses, other (s1s2) Gastrointestinal: soft Musculoskeletal: muscle weakness, range of motion Extremities: normal pulses Neurological: unresponsive Results Results 24hrs Laboratory Tests Test 08/08/18 15:57 08/09/18 05:09 08/09/18 05:37 08/09/18 11:00 White Blood Count 17.2 H 12.8 #H Red Blood Count 2.33 L 2.21 L Hemoglobin 7.3 L 7.0 L Hematocrit 24.4 L 22.7 L Mean Corpuscular Volume 104.7 H 102.7 H Mean Corpuscular 31.3 31.7 Hemoglobin Mean Corpuscular 29.9 L 30.8 L Hemoglobin Concent Red Cell Distribution 19.4 H 19.2 H Width Platelet Count 40 L 43 L Mean Platelet Volume Immature Granulocytes % 4.500 H 4.100 H Neutrophils % 90.4 H 85.2 H Lymphocytes % 3.3 L 6.0 L Monocytes % 1.7 4.6 Eosinophils % 0.0 0.0 Basophils % 0.1 0.1 Nucleated Red Blood 0.5 H 0.7 H Cells % Immature Granulocytes # 0.780 H 0.520 H Neutrophils # 15.5 H 10.9 H Lymphocytes # 0.6 L 0.8 Monocytes # 0.3 0.6 Eosinophils # 0.0 0.0 Basophils # 0.0 0.0 Nucleated Red Blood 0.1 H 0.1 H Cells # Sodium Level 138 139 Potassium Level 5.7 H 5.4 H Chloride Level 108 112 H Carbon Dioxide Level 21 24 Anion Gap 9 # 3 L Blood Urea Nitrogen 84 H 84 H Creatinine 1.64 H 1.74 H Est Glomerular Filtrat Rate mL/min Glucose Level 131 128 Calcium Level 8.6 8.4 Phosphorus Level 5.0 H Magnesium Level 2.4 Urine Color YELLOW Urine Clarity CLEAR Urine pH 6.0 Urine Specific [place] 1.013 Urine Ketones NEGATIVE Urine Nitrite NEGATIVE Urine Bilirubin NEGATIVE Urine Urobilinogen NEGATIVE Urine Leukocyte Esterase NEGATIVE Urine Microscopic RBC 0 Urine Microscopic WBC 0 Urine Hemoglobin 2+ H Urine Glucose NEGATIVE Urine Total Protein 1+ H Medications Medication Current Medications Vancomycin HCl (Vanco Iv Per Pharmacy) VANCOMYCIN PER PHARMACY PER PROTOCOL XX ; Start 07/28/18 at 17:30 Albuterol/ Ipratropium (Duoneb) 3 ml Q6H RESP THERAPY HHN Last administered on 08/02/18 01:07; Admin Dose 3 ML; Start 07/28/18 at 20:00; Status Hold Calcium/Vitamin D (Oyster Shell/ Vit-D (500/200)) 1 tab BID PO Last administered on 08/09/18 08:27; Admin Dose 1 TAB; Start 07/28/18 at 21:00 Clonazepam (Klonopin) 0.5 mg BID PRN PO ANXIETY Last administered on 08/04/18 21:00; Admin Dose 0.5 MG; Start 07/28/18 at 21:00 Clonidine (Catapres) 0.1 mg TID PRN PO ELEVATED BLOOD PRESSURE Last administered on 07/29/18 16:54; Admin Dose 0.1 MG; Start 07/28/18 at 21:00 Hydromorphone HCl (Dilaudid) 2 mg Q4H PRN PO SEVERE PAIN LEVEL 7-10 Last administered on 08/01/18 23:34; Admin Dose 2 MG; Start 07/28/18 at 21:00 Docusate Sodium (Colace) 100 mg BID PRN PO CONSTIPATION; Start 07/28/18 at 21:00 Gabapentin (Neurontin) 200 mg BID PO Last administered on 08/09/18 08:27; Admin Dose 200 MG; Start 07/28/18 at 21:00 Magnesium Hydroxide (Milk Of Mag) 30 ml DAILY PRN PO CONSTIPATION; Start 07/28/18 at 21:00 Acetaminophen/ Hydrocodone Bitart ([place] (10/325)) 1 tab Q4H PRN PO MODERATE PAIN LEVEL 4-6 Last administered on 08/01/18 21:02; Admin Dose 1 TAB; Start 07/28/18 at 21:00 Carisoprodol (Soma) 350 mg BID PRN PO MUSCLE SPASMS; Start 07/28/18 at 21:00 Trazodone HCl (Desyrel) 50 mg HS PRN PO INSOMNIA Last administered on 07/29/18 20:29; Admin Dose 50 MG; Start 07/28/18 at 21:00 Ondansetron HCl (Zofran Inj) 4 mg Q6H PRN IV NAUSEA AND/OR VOMITING; Start 07/28/18 at 21:00 Methylprednisolone Sodium Succinate (Solu-Medrol) 40 mg DAILY IV Last administered on 08/09/18 08:26; Admin Dose 40 MG; Start 07/29/18 at 09:00 Ascorbic Acid (Vitamin C) 500 mg TID PO Last administered on 08/09/18 08:27; Admin Dose 500 MG; Start 07/29/18 at 09:00 Lorazepam (Ativan) 0.5 mg Q6H PRN PO ANXIETY Last administered on 08/05/18 04:06; Admin Dose 0.5 MG; Start 07/29/18 at 20:30 Guaifenesin/ Dextromethorphan (Robitussin Dm Liquid Cup) 5 ml Q4H PRN PO COUGH Last administered on 08/01/18 16:32; Admin Dose 5 ML; Start 07/29/18 at 20:30 Diltiazem HCl 125 ml @ 5 mls/hr TITRATE IV Last administered on 07/30/18 09:40; Admin Dose 5 MLS/HR; Start 07/30/18 at 09:00; Status Hold Dronedarone (Multaq) 400 mg BID WITH MEALS PO Last administered on 08/09/18 08:27; Admin Dose 400 MG; Start 07/30/18 at 09:30 Propofol 100 ml @ 1.986 mls/ hr Q12H IV Last administered on 08/05/18 06:36; Admin Dose 11.916 MLS/HR; Start 08/02/18 at 10:00 Albuterol (Ventolin Hfa) 4 puff Q6H RESP THERAPY INH Last administered on 08/09/18 08:44; Admin Dose 4 PUFF; Start 08/02/18 at 14:00 Ipratropium [place] (Atrovent Hfa) 4 puff Q6H RESP THERAPY INH Last administered on 08/09/18 08:44; Admin Dose 4 PUFF; Start 08/02/18 at 14:00 Fluconazole/ Sodium Chloride 50 ml @ 50 mls/hr Q24H IVPB Last administered on 08/08/18 17:56; Admin Dose 50 MLS/HR; Start 08/02/18 at 17:00 Acetaminophen (Tylenol Liquid) 650 mg Q6H PRN GTB MILD PAIN (1-3) OR TEMPERATURE; Start 08/03/18 at 09:30 Docusate Sodium (Colace Liquid Cup) 100 mg BID PRN GTB CONSTIPATION,,,,; Start 08/03/18 at 09:30 IV Flush (NS 10 ml) 10 ml PRN PRN IV IV PROTOCOL; Start 08/03/18 at 10:30 Fentanyl 100 ml @ 2.5 mls/hr TITRATE IV Last administered on 08/09/18at 11:00; Admin Dose 5 MLS/HR; Start 08/04/18 at 09:00 Lansoprazole (Prevacid) 30 mg DAILY@06 GTB Last administered on 08/09/18at 06:38; Admin Dose 30 MG; Start 08/05/18 at 06:00 Midazolam HCl 50 ml @ 1 mls/hr TITRATE IV Last administered on 08/09/18 05:24; Admin Dose 5 MLS/HR; Start 08/05/18 at 12:00 Norepinephrine 250 ml @ 1.875 mls/ hr TITRATE IV Last administered on 08/05/18at 13:00; Admin Dose 30 MLS/HR; Start 08/05/18 at 13:00 Sodium Chloride 1,000 ml @ 50 mls/hr Q20H IV Last administered on 08/09/18at 08:00; Admin Dose 50 MLS/HR; Start 08/06/18 at 08:00 Phenylephrine HCl 80 mg/Dextrose 250 ml @ 18.75 mls/ hr TITRATE IV Last administered on 08/09/18 01:42; Admin Dose 6.56 MLS/HR; Start 08/06/18 at 15:30 Vancomycin/Sodium Chloride 250 ml @ 125 mls/hr Q48H IVPB Last administered on 08/09/18at 10:53; Admin Dose 125 MLS/HR; Start 08/09/18 at 11:00 Levofloxacin/ Dextrose 50 ml @ 50 mls/hr DAILY IVPB Last administered on 08/09/18 08:27; Admin Dose 50 MLS/HR; Start 08/08/18 at 09:00 EDITA CACERES Aug 09, 2018 12:34
--- NOTE | 2018-08-09 13:00 | PN ---
DATE: 08/09/2018 SUBJECTIVE: The patient remains critically ill on full ventilatory support. The patient's urinary o utput has been marginal. No other events noted. OBJECTIVE: VITAL SIGNS: Blood pressure is 122/50, pulse 71, respirations 24, temperature 97.4. HEENT: Head is normocephalic. NECK: Supple. HEART: Regular rate. LUNGS: Show diminished breath sounds at base. ABDOMEN: Soft, nontender to palpation without rebound or guarding. EXTREMITIES: Negative for clubbing, cyanosis. Positive edema. DERMATOLOGIC: No rashes. MUSCULOSKELETAL: No joint effusion. NEUROLOGIC: No change in exam. MEDICATIONS: Have been reviewed. LABORATORY DATA: Show sodium 139, potassium 5.4, chloride 112, BUN 84, creatinine 1.74, phosphorus 5 .0. White count 12.8, hemoglobin 7.0, platelet count is 43. The patient's cultures have been review ed. IMAGING: Chest x-ray was reviewed. ASSESSMENT AND PLAN: 1. Oliguric acute kidney injury with unknown baseline creatinine. Etiology of acute kidney injury i s secondary to acute tubular necrosis due to sepsis and hemodynamic shock. The patient remains in in jury phase of acute tubular necrosis. At this point, continue current treatment plans, supportive ca re, renally dose all meds. Continue pressor support. Continue gentle IV hydration. Continue antibi otic therapy. No immediate need for renal replacement therapy at this time. 2. Hyperkalemia secondary to acute kidney injury. The patient's potassium levels have been fluctuat ing. Continue to monitor. The patient is status post Kayexalate. 3. Anemia. Monitor hemoglobin and hematocrit levels. The patient is pending blood transfusion. 4. Mixed acid base disorder. The patient's ABG was reviewed. Continue to monitor. No need for bic arbonate drip at this time. 5. Hypernatremia, improved. Continue free water flushes. 6. Volume overload secondary to sepsis, IV fluids. Continue to monitor. We would recommend d iuretic therapy once pressor support can be weaned off. 7. Septic shock secondary to pneumonia, bacteremia. Continue current medical treatment with IV flui ds, antibiotics, pressor support. 8. Ventilator-dependent respiratory failure. Vent settings and ABG was reviewed. Continue to monit or. 9. Acute encephalopathy. Etiology is toxic metabolic. 10. Peripheral vascular disease. 11. Status post hip fracture. Please note, I spent over 30 minutes of critical care time with this patient. Dictated By: GENEVIEVE MENJIVAR DO NR/MARLENY Conf#: [id number] DID#: [id number] CC: ABDIAS STAPLES MD;*EndCC*
[2018-08-09] MEDS: FLUCONAZOLE 100 MG/50 ML (PMX) 50 ML IVPB SCH (17:53)
--- NOTE | 2018-08-09 18:26 | CONS ---
Consult Date/Type/Reason Admit Date/Time Jul 28, 2018 at 18:16 Initial Consult Date 07/28/18 Type of Consultation: cv Requesting Provider: ABDIAS STAPLES MD Date/Time of Note DATE: 08/09/18 TIME: 18:25 Subjective Cardiology follow-up progress note Subjective: Discussed with the staff and Telemetry was reviewed. Patient REMAINS INTUBATED on vent in ICU. currently down to 45% O2 he remains in NSR now Patient still has bleeding from ET tube Patient is lethargic and unable to provide any history to me Objective: General: Elderly female INTUBATED on vent . HEENT: NC/AT. pupils are equal. round. NECK: + JVD. no stridor. CV regular rate and rhythm systolic murmur; no gallop or rubs. PULM: no wheezing + rhonchi. GI: SOFT, NT, ND, no rebound or guarding Extremity: + LE edema. no clubbing. neuro: intubated on vent Psych: calm rectal: deferred : Deferred EKG was personally within normal sinus rhythm with no evidence of ischemia CT pulmonary angiogram done in the emergency room shows: 1. Moderate pulmonary fibrosis, worse at the bilateral lung apices. Associated mediastinal adenopathy. Underlying mass not entirely excluded. Further evaluation with PET-CT may be obtained. 2. Small right multiloculated pleural effusion. Moderate left layering pleural effusion. 3. Streaky bibasilar opacities compatible with atelectasis or pneumonia. 4. Dilated pulmonary trunk and bilateral pulmonary arteries compatible with sequelae of pulmonary hypertension. 5. Left renal 4 cm hyperdense cyst or mass. Further evaluation with multiphase contrast enhanced CT or MR may be obtained. Echocardiogram was personally reviewed which shows: Normal left ventricular systolic function. Normal left ventricular cavity size. Mild concentric left ventricular hypertrophy. Ejection fraction is visually estimated at 55 %. There is mild enlargement of left atrium. Normal appearance of the mitral valve. Mild mitral valve regurgitation. Aortic sclerosis without significant stenosis. Aortic cusps appear mildly calcified. Trileaflet aortic valve. Trace aortic valve regurgitation. Normal appearance of the tricuspid valve. Estimated peak PA systolic pressure 71 mmHg. There is mild tricuspid regurgitation. Normal size and normal respiratory collapse consistent with normal right atrial pressure. CXR 08/05 Again seen are diffuse coarse interstitial infiltrates with superimposed ground-glass densities, slightly more confluent within the perihilar regions and right lower lobe. The osseous structures are unremarkable. Chest x-ray August 06, 2018 shows: Stable patchy infiltrates throughout both lungs with potential small pleural effusions. Stable diffuse mild interstitial prominence in both lungs. Interstitial prominence could be chronic. Objective Vitals Vital Signs Date Temp Pulse Resp B/P (MAP) Pulse Ox O2 O2 Flow FiO2 Time Delivery Rate 08/09/18 84 23 124/46 94 17:30 (72) 08/09/18 45 17:00 08/09/18 98.3 Mechanical 16:00 Ventilator Intake and Output 08/08/18 08/08/18 08/09/18 1515:00 23:00 07:00 IntakeIntake Total 646.33 ml 1015.62 ml 932.48 ml OutputOutput Total 390 ml 460 ml 440 ml BalanceBalance 256.33 ml 555.62 ml 492.48 ml Results/Medications Result Diagram: 08/09/18 0537 08/09/18 0509 Results 24 hrs Laboratory Tests Test 08/09/18 05:09 08/09/18 05:37 08/09/18 11:00 Sodium Level 139 Potassium Level 5.4 H Chloride Level 112 H Carbon Dioxide Level 24 Anion Gap 3 L Blood Urea Nitrogen 84 H Creatinine 1.74 H Est Glomerular Filtrat Rate mL/min Glucose Level 128 Calcium Level 8.4 Phosphorus Level 5.0 H Magnesium Level 2.4 White Blood Count 12.8 #H Red Blood Count 2.21 L Hemoglobin 7.0 L Hematocrit 22.7 L Mean Corpuscular Volume 102.7 H Mean Corpuscular Hemoglobin 31.7 Mean Corpuscular Hemoglobin Concent 30.8 L Red Cell Distribution Width 19.2 H Platelet Count 43 L Mean Platelet Volume Immature Granulocytes % 4.100 H Neutrophils % 85.2 H Lymphocytes % 6.0 L Monocytes % 4.6 Eosinophils % 0.0 Basophils % 0.1 Nucleated Red Blood Cells % 0.7 H Immature Granulocytes # 0.520 H Neutrophils # 10.9 H Lymphocytes # 0.8 Monocytes # 0.6 Eosinophils # 0.0 Basophils # 0.0 Nucleated Red Blood Cells # 0.1 H Urine Color YELLOW Urine Clarity CLEAR Urine pH 6.0 Urine Specific [place] 1.013 Urine Ketones NEGATIVE Urine Nitrite NEGATIVE Urine Bilirubin NEGATIVE Urine Urobilinogen NEGATIVE Urine Leukocyte Esterase NEGATIVE Urine Microscopic RBC 0 Urine Microscopic WBC 0 Urine Hemoglobin 2+ H Urine Glucose NEGATIVE Urine Total Protein 1+ H Home Meds Reported Medications Ondansetron Hcl* (Zofran*) 8 Mg Tablet, 8 MG PO Q6H PRN for NAUSEA AND OR VOMITING, TAB 07/28/18 Guaifenesin (Xpect) 400 Mg Tablet, 400 MG PO Q12, TAB 07/28/18 Acetaminophen* (Acetaminophen*) 650 Mg Tablet, 650 MG PO Q6H PRN for PAIN AND OR ELEVATED TEMP, #30 TAB 07/28/18 Trazodone Hcl* (Trazodone Hcl*) 50 Mg Tablet, 50 MG PO QHS, #30 TAB 07/28/18 Carisoprodol* (Carisoprodol*) 350 Mg Tablet, 350 MG PO BID PRN for MUSCLE SPASMS, TAB 07/28/18 Montelukast Sodium* (Singulair*) 10 Mg Tablet, 10 MG PO QHS, #30 TAB 07/28/18 Sennosides* (Senna Lax*) 8.6 Mg Tablet, 2 TAB PO QHS, TAB 07/28/18 Fluoxetine Hcl* (Prozac*) 20 Mg Capsule, 20 MG PO DAILY, CAP 07/28/18 Promethazine Hcl* (Phenergan* Liq) 6.25 Mg/5 Ml Syrup, 12.5 MG PO Q6H PRN for COUGH, ML 07/28/18 Lansoprazole* (Lansoprazole*) 30 Mg Capsule.dr, 30 MG PO DAILY, CAP 07/28/18 Vit C/E/Zn/Coppr/Lutein/Zeaxan (Preservision Areds 2 Softgel) 1 Each Capsule, 2 EACH PO DAILY, CAP 07/28/18 Prednisone* (Prednisone*) 20 Mg Tab, 40 MG PO DAILY, TAB 07/28/18 Chlorhexidine Gluconate (Peridex) 473 Ml Mouthwash, 15 ML MM BID, BOTTLE 07/28/18 Cayce-3 Acid Ethyl Esters (Lovaza) 1 Gm Capsule, 2 GM PO DAILY, CAP 07/28/18 Hydrocodone/Acetaminophen ([place] 10-325 Tablet) 1 Each Tablet, 1 EACH PO Q4 PRN for SEVERE PAIN LEVEL 7-10, TAB 07/28/18 Multivitamins* (Theragran*) 1 Tab Tab, 1 TAB PO DAILY, TAB 07/28/18 Guaifenesin (Guaifenesin) 600 Mg Tablet.sa, 600 MG PO BID, TAB 07/28/18 Magnesium Hydroxide* (Milk Of Magnesia*) 400 Mg/5 Ml Oral.susp, 30 ML PO DAILY PRN for CHEST PAIN, ML 07/28/18 Metoprolol Tartrate* (Lopressor*) 50 Mg Tab, 50 MG PO DAILY, #60 TAB HOLD FOR SBP<110 OR HR<60 07/28/18 Atorvastatin Calcium (Atorvastatin Calcium) 10 Mg Tablet, 10 MG PO QHS, #30 TAB 07/28/18 Lidocaine (Lidocaine) 5 Gm Cream..g., 5 GM TP DAILY 07/28/18 Furosemide* (Lasix*) 20 Mg Tablet, 20 MG PO DAILY, TAB 07/28/18 Lactobacillus Rhamnosus* (Culturelle*) 1 Each Cap.sprink, 1 CAP PO DAILY, CAP 07/28/18 Ipratropium-Albuterol (Ipratropium-Albuterol) 0.5-3 Mg/3 Ml Ampul.neb, 3 ML INHALATION Q4 PRN for SHORTNESS OF BREATH, #30 VIAL 07/28/18 Gabapentin* (Gabapentin*) 100 Mg Capsule, 200 MG PO BID, #180 CAP 07/28/18 Folic Acid* (Folic Acid*) 1 Mg Tablet, 1 MG PO DAILY, TAB 07/28/18 Ferrous Sulfate* (Ferrous Sulfate*) 325 Mg Tabec, 325 MG PO TID, TAB 07/28/18 Estrogens Conjugated* (Premarin*) 0.45 Mg Tablet, 0.45 MG PO DAILY, TAB 07/28/18 Bisacodyl (Dulcolax) 10 Mg Supp.rect, 10 MG RC Q48, SUPP.RECT 07/28/18 Docusate Sodium* (Colace*) 100 Mg Capsule, 100 MG PO QHS PRN for CONSTIPATION, #60 CAP 07/28/18 Hydromorphone Hcl* (Dilaudid*) 2 Mg Tablet, 2 MG PO Q6H PRN for SEVERE PAIN LEVEL 7-10, TAB 07/28/18 Cyanocobalamin* (Vitamin B12*) 500 Mcg Tab, 500 MCG PO DAILY, TAB 07/28/18 Clonidine Hcl* (Clonidine Hcl*) 0.1 Mg Tab, 0.1 MG PO Q8, TAB 07/28/18 Clonazepam* (Clonazepam*) 0.5 Mg Tablet, 0.5 MG PO BID PRN for ANXIETY, TAB 07/28/18 Calcium Carbonate/Vitamin D3 ([place] 500+D Tablet) 1 Each Tablet, 1 EACH PO BID, TAB 07/28/18 Fluticasone/Vilanterol (Breo Ellipta 200-25 Mcg INH) 1 Each Blst.w.dev, 1 PUFF INHALATION DAILY, #1 INHALER 07/28/18 Lorazepam* (Lorazepam*) 0.5 Mg Tablet, 0.5 MG PO Q6 PRN for ANXIETY, TAB 07/28/18 Diphenhydramine Hcl* (Benadryl*) 25 Mg Cap, 25 MG PO Q8 PRN for PRN, CAP 07/28/18 Aspirin* (Aspirin* Chew) 81 Mg Tab.chew, 81 MG PO DAILY, TAB.CHEW 07/28/18 Ascorbic Acid* (Vitamin C*) 500 Mg Capsule.sa, 500 MG PO TID, CAP 07/28/18 Apixaban* (Eliquis*) 5 Mg Tablet, 5 MG PO BID, TAB 07/28/18 Hydrocortisone Acetate (Anusol-Hc) 25 Mg Supp.rect, 25 MG HI BID PRN for CONSTIPATION, SUPP.RECT 07/28/18 Amiodarone Hcl* (Amiodarone Hcl*) 200 Mg Tablet, 200 MG PO BID, #30 TAB HOLD FOR SBP<110 OR HR<60 07/28/18 Medications Current Medications Vancomycin HCl (Vanco Iv Per Pharmacy) VANCOMYCIN PER PHARMACY PER PROTOCOL XX ; Start 07/28/18 at 17:30 Albuterol/ Ipratropium (Duoneb) 3 ml Q6H RESP THERAPY HHN Last administered on 08/02/18at 01:07; Admin Dose 3 ML; Start 07/28/18 at 20:00; Status Hold Calcium/Vitamin D (Oyster Shell/ Vit-D (500/200)) 1 tab BID PO Last administered on 08/09/18at 08:27; Admin Dose 1 TAB; Start 07/28/18 at 21:00 Clonazepam (Klonopin) 0.5 mg BID PRN PO ANXIETY Last administered on 08/04/18at 21:00; Admin Dose 0.5 MG; Start 07/28/18 at 21:00 Clonidine (Catapres) 0.1 mg TID PRN PO ELEVATED BLOOD PRESSURE Last administered on 07/29/18 16:54; Admin Dose 0.1 MG; Start 07/28/18 at 21:00 Hydromorphone HCl (Dilaudid) 2 mg Q4H PRN PO SEVERE PAIN LEVEL 7-10 Last administered on 08/01/18 23:34; Admin Dose 2 MG; Start 07/28/18 at 21:00 Docusate Sodium (Colace) 100 mg BID PRN PO CONSTIPATION; Start 07/28/18 at 21:00 Gabapentin (Neurontin) 200 mg BID PO Last administered on 08/09/18 08:27; Admin Dose 200 MG; Start 07/28/18 at 21:00 Magnesium Hydroxide (Milk Of Mag) 30 ml DAILY PRN PO CONSTIPATION; Start 07/28/18 at 21:00 Acetaminophen/ Hydrocodone Bitart ([place] (10/325)) 1 tab Q4H PRN PO MODERATE PAIN LEVEL 4-6 Last administered on 08/01/18 21:02; Admin Dose 1 TAB; Start 07/28/18 at 21:00 Carisoprodol (Soma) 350 mg BID PRN PO MUSCLE SPASMS; Start 07/28/18 at 21:00 Trazodone HCl (Desyrel) 50 mg HS PRN PO INSOMNIA Last administered on 07/29/18 20:29; Admin Dose 50 MG; Start 07/28/18 at 21:00 Ondansetron HCl (Zofran Inj) 4 mg Q6H PRN IV NAUSEA AND/OR VOMITING; Start 07/28/18 at 21:00 Methylprednisolone Sodium Succinate (Solu-Medrol) 40 mg DAILY IV Last administered on 08/09/18 08:26; Admin Dose 40 MG; Start 07/29/18 at 09:00 Ascorbic Acid (Vitamin C) 500 mg TID PO Last administered on 08/09/18 13:28; Admin Dose 500 MG; Start 07/29/18 at 09:00 Lorazepam (Ativan) 0.5 mg Q6H PRN PO ANXIETY Last administered on 08/05/18 04:06; Admin Dose 0.5 MG; Start 07/29/18 at 20:30 Guaifenesin/ Dextromethorphan (Robitussin Dm Liquid Cup) 5 ml Q4H PRN PO COUGH Last administered on 08/01/18 16:32; Admin Dose 5 ML; Start 07/29/18 at 20:30 Diltiazem HCl 125 ml @ 5 mls/hr TITRATE IV Last administered on 07/30/18 09:40; Admin Dose 5 MLS/HR; Start 07/30/18 at 09:00; Status Hold Dronedarone (Multaq) 400 mg BID WITH MEALS PO Last administered on 08/09/18 16:31; Admin Dose 400 MG; Start 07/30/18 at 09:30 Propofol 100 ml @ 1.986 mls/ hr Q12H IV Last administered on 08/05/18 06:36; Admin Dose 11.916 MLS/HR; Start 08/02/18 at 10:00 Albuterol (Ventolin Hfa) 4 puff Q6H RESP THERAPY INH Last administered on 08/09/18 13:41; Admin Dose 4 PUFF; Start 08/02/18 at 14:00 Ipratropium [place] (Atrovent Hfa) 4 puff Q6H RESP THERAPY INH Last administered on 08/09/18 13:41; Admin Dose 4 PUFF; Start 08/02/18 at 14:00 Fluconazole/ Sodium Chloride 50 ml @ 50 mls/hr Q24H IVPB Last administered on 08/09/18 17:53; Admin Dose 50 MLS/HR; Start 08/02/18 at 17:00 Acetaminophen (Tylenol Liquid) 650 mg Q6H PRN GTB MILD PAIN (1-3) OR TEMPERATURE; Start 08/03/18 at 09:30 Docusate Sodium (Colace Liquid Cup) 100 mg BID PRN GTB CONSTIPATION,,,,; Start 08/03/18 at 09:30 IV Flush (NS 10 ml) 10 ml PRN PRN IV IV PROTOCOL; Start 08/03/18 at 10:30 Fentanyl 100 ml @ 2.5 mls/hr TITRATE IV Last administered on 08/09/18 11:00; Admin Dose 5 MLS/HR; Start 08/04/18 at 09:00 Lansoprazole (Prevacid) 30 mg DAILY@06 GTB Last administered on 08/09/18 06:38; Admin Dose 30 MG; Start 08/05/18 at 06:00 Midazolam HCl 50 ml @ 1 mls/hr TITRATE IV Last administered on 08/09/18 16:32; Admin Dose 5 MLS/HR; Start 08/05/18 at 12:00 Norepinephrine 250 ml @ 1.875 mls/ hr TITRATE IV Last administered on 08/05/18 13:00; Admin Dose 30 MLS/HR; Start 08/05/18 at 13:00 Sodium Chloride 1,000 ml @ 50 mls/hr Q20H IV Last administered on 08/09/18 08:00; Admin Dose 50 MLS/HR; Start 08/06/18 at 08:00 Phenylephrine HCl 80 mg/Dextrose 250 ml @ 18.75 mls/ hr TITRATE IV Last administered on 08/09/18 01:42; Admin Dose 6.56 MLS/HR; Start 08/06/18 at 15:30 Vancomycin/Sodium Chloride 250 ml @ 125 mls/hr Q48H IVPB Last administered on 08/09/18 10:53; Admin Dose 125 MLS/HR; Start 08/09/18 at 11:00 Levofloxacin/ Dextrose 50 ml @ 50 mls/hr DAILY IVPB Last administered on 08/09/18 08:27; Admin Dose 50 MLS/HR; Start 08/08/18 at 09:00 Assessment/Plan Hospital Course (Demo Recall) 1. Hypoxemic respiratory failure: Status post intubation on the vent now 2. Pulmonary fibrosis/severe COPD 3. Elevated BNP most likely secondary to above and significant pulmonary hypertension 4. paroxysmal atrial fibrillation; currently converted back to normal sinus rhythm 5. Encephalopathy 6. pneumonia 7. History of recent fall and hip fracture status post surgery 8. Anemia and OB positive stool 9. Lactic acidosis 10. Hypertension 11. Pulmonary hypertension 12.shock. sepsis 13. Acute encephalopathy has a letter of consciousness 14. Thrombocytopenia Recommendations: off the Eliquis given her OB positive stool as well as thrombocytopenia and worsening anemia Continue with vent support. Antibiotic management as per internal medicine We will continue to monitor on telemetry Correct electrolytes as needed Transfusions as needed off the amiodarone given concern about her severe pulmonary disease and pulmonary fibrosis. cont Multaq TSH is within normal limits Given her pulmonary hypertension and was started on Revatio but she is too hypotensive to tolerate and has been stopped now. Continue with vent support. CT of the head to be taken once patient is stable . Thank you for his referral. We will continue to follow along with you DAYRON ROGERS MD [facility] DAYRON ROGERS MD Aug 09, 2018 18:26
[2018-08-10] VITALS (43 sets, daily range): BP systolic 121–151; BP diastolic 46–63; PULSE 76–126; RESP 16–29
[2018-08-10] MEDS: ALBUTEROL HFA 8 GM INHALER INH SCH ×3 (01:15→19:22)
[2018-08-10] MEDS: IPRATROPIUM (HFA) 12.9 GM INHALER INH SCH ×3 (01:15→19:22)
[2018-08-10] MEDS: PROPOFOL 100 ML IV SCH ×3 (02:25→22:00)
[2018-08-10] MEDS: SOD CHLORIDE 0.45% 1,000 ML IV SCH (06:11)
[2018-08-10] MEDS: MIDAZOLAM (DRIP) 50 mg/50 mL 50 ML IV SCH ×2 (06:11→10:46)
[2018-08-10] MEDS: LANSOPRAZOLE 30 MG CAP GTB SCH (06:11)
[2018-08-10] MEDS: DRONEDARONE HYDROCHLORIDE 400 MG TAB PO SCH ×2 (06:11→18:34)
[2018-08-10] MEDS ORDERED: FUROSEMIDE 40 MG INJ IV ONE (08:00)
--- NOTE | 2018-08-10 08:23 | PN ---
DATE: 08/10/2018 SUBJECTIVE: The patient is critically ill. She remains on full ventilatory support. The patient yusuf s been weaned off pressors. No other events noted. No hemoptysis, hematemesis, or hematochezia. OBJECTIVE: VITAL SIGNS: Blood pressure is 135/52, respirations 24, pulse 86, temperature 98.6. HEENT: Head is normocephalic. NECK: Supple. HEART: Regular rate. LUNGS: Show diminished breath sounds at the base. ABDOMEN: Soft, nontender to palpation without rebound or guarding. EXTREMITIES: Negative for clubbing, cyanosis. Positive edema, diffuse anasarca. DERMATOLOGIC: No rashes. MUSCULOSKELETAL: No joint effusion. NEUROLOGIC: No change in exam. MEDICATIONS: Reviewed LABORATORY DATA: White count 13.8, hemoglobin 9.1, platelet count is 48. Sodium 138, potassium 5.3, BUN 97, creatinine 1.70, phosphorus 1.9. Urinalysis was reviewed. ASSESSMENT AND PLAN: 1. Nonoliguric acute kidney injury with unknown baseline creatinine. Etiology of acute kidney injur y is secondary to acute tubular necrosis due to sepsis, hemodynamics. The patient may be entering ma intenance phase of acute tubular necrosis. The patient does have a progressive azotemia, which is mu ltifactorial due to acute kidney injury, hypercatabolic state, steroids. At this point, we will cont inue current treatment plan. Discontinue IV fluids. We will start the patient on diuretic therapy, monitoring electrolytes and renal function closely. We will monitor closely. 2. Hyperkalemia secondary to acute kidney injury. Continue patient on low-potassium diet. Continue diuretic therapy and monitor. 3. Anemia. Continue to monitor hemoglobin and hematocrit levels. 4. Mixed acid base disorder. The patient's ABG was reviewed. Continue to monitor. 5. Hypernatremia, improved. Continue free water flushes. 6. Volume overload. Etiology is secondary to sepsis and capillary leak IV fluids. Plan is to disco ntinue IV fluids. Continue diuretic therapy and monitor. 7. Sepsis, status post shock secondary to pneumonia, bacteremia. Continue current medical managemen t. Continue IV antibiotics. 8. Ventilator-dependent respiratory failure. Vent settings and ABG was reviewed. Continue to monit or. 9. Acute encephalopathy, etiology is toxic metabolic. 10. History of peripheral vascular disease. 11. Status post arthroplasty. Please note, I spent over 30 minutes of critical care time with this patient. Dictated By: GENEVIEVE MENJIVAR DO NR/NTS Conf#: [id number] DID#: [id number] CC: GENEVIEVE MENJIVAR DO; ABDIAS STAPLES MD;*EndCC*
[2018-08-10] MEDS: METHYLPREDNISOLONE 40 MG INJ IV SCH (08:48)
[2018-08-10] MEDS: LEVOFLOXACIN 250MG/D5W (PMX) 50 ML IVPB SCH (08:48)
[2018-08-10] MEDS: ASCORBIC ACID 500 MG TAB PO SCH ×3 (08:48→21:28)
[2018-08-10] MEDS: GABAPENTIN 100 MG CAP PO SCH ×2 (08:48→21:28)
[2018-08-10] MEDS: CALCIUM/VITAMIN D (500/200) TAB PO SCH ×2 (08:48→21:28)
[2018-08-10] MEDS: FENTAnyl (DRIP) 1000 mcg/100mL 100 ML IV SCH (08:57)
--- NOTE | 2018-08-10 09:26 | CONS ---
Assessment/Plan Assessment/Plan Assessment/Plan (Daily) Chest x-ray from today was reviewed which is showing ARDS pattern. Ventilator setting; AC of 24, tidal volume 500, PEEP of 10, 80% FiO2. Patient is currently on Versed 7 mg/h, fentanyl 75 mics per hour. Assessment and recommendations; 1. Patient admitted with severe bilateral pneumonia with ARDS requiring high FiO2. Chest x-ray not showing any improvement. 2. Prior history of tracheostomy with decannulation. 3. History of pancreatic mass, apparently benign. 4. History of neuropathy. 5. Anemia and severe thrombocytopenia. 6. Generalized anasarca. Continue current supportive care. Administer albumin 25 g twice daily for 4 doses. Obtain follow-up chest x-ray 24 hours. Prognosis appears very poor. Consultation Date/Type/Reason Admit Date/Time Jul 28, 2018 at 18:16 Initial Consult Date 07/28/18 Type of Consult Pulmonary Requesting Provider: ABDIAS STAPLES MD Date/Time of Note DATE: 08/10/18 TIME: 09:24 24 HR Interval Summary Free Text/Dictation Patient's condition remains critical. Requiring higher FiO2 now. Patient [facility] has remained hemodynamically stable. General exam; elderly female, orally intubated, sedated, currently in no distress. Exam/Review of Systems Exam Vitals Vital Signs Date Temp Pulse Resp B/P (MAP) Pulse Ox O2 O2 Flow FiO2 Time Delivery Rate 08/10/18 88 08:00 08/10/18 23 140/55 92 Mechanical 07:00 (83) Ventilator 08/10/18 45 04:50 08/10/18 98.3 04:00 Intake and Output 08/09/18 08/09/18 08/10/18 1515:00 23:00 07:00 IntakeIntake Total 1792.20 ml 1140 ml 1070 ml OutputOutput Total 600 ml 560 ml 675 ml BalanceBalance 1192.20 ml 580 ml 395 ml Exam HEENT exam; supple neck, no JVD. No lymphadenopathy. Midline trachea. No thyromegaly. Edentulous. Orally intubated. There is a well-healed tracheostomy scar. Chest exam; diminished breath sounds bilaterally. S1-S2 audible, no murmurs. Regular rhythm. Abdomen exam; soft, no organomegaly. Nondistended. Bowel sounds audible. There is a well-healed epigastric scar. Extremity exam; 2+ edema with multiple ecchymosis. [employer] exam; patient is sedated. Results Result Diagram: 08/10/18 0400 08/10/18 0400 Results 24hrs Laboratory Tests Test 08/09/18 11:00 08/10/18 04:00 08/10/18 05:23 Urine Color YELLOW Urine Clarity CLEAR Urine pH 6.0 Urine Specific [place] 1.013 Urine Ketones NEGATIVE Urine Nitrite NEGATIVE Urine Bilirubin NEGATIVE Urine Urobilinogen NEGATIVE Urine Leukocyte Esterase NEGATIVE Urine Microscopic RBC 0 Urine Microscopic WBC 0 Urine Hemoglobin 2+ H Urine Glucose NEGATIVE Urine Total Protein 1+ H White Blood Count 13.8 H Red Blood Count 2.94 #L Hemoglobin 9.1 #L Hematocrit 28.9 #L Mean Corpuscular Volume 98.3 Mean Corpuscular Hemoglobin 31.0 Mean Corpuscular 31.5 L Hemoglobin Concent Red Cell Distribution Width 19.5 H Platelet Count 48 L Mean Platelet Volume Immature Granulocytes % 5.800 H Neutrophils % Segmented Neutrophils % (Manual) 91 H Lymphocytes % Lymphocytes % (Manual) 4 L Monocytes % Monocytes % (Manual) 2 Eosinophils % Basophils % Myelocytes % (Manual) 3 H Nucleated Red Blood Cells % 3 H Immature Granulocytes # 0.800 H Neutrophils # Lymphocytes (Manual) 0.5 L Lymphocytes # Monocytes # Monocytes # (Manual) 0.2 L Eosinophils # Basophils # Myelocytes # 0.4 H Nucleated Red Blood Cells # Platelet Estimate DECREASED Polychromasia 1+ Anisocytosis 1+ Macrocytosis 1+ Sodium Level 138 Potassium Level 5.3 H Chloride Level 107 Carbon Dioxide Level 21 Anion Gap 10 # Blood Urea Nitrogen 97 H Creatinine 1.70 H Est Glomerular Filtrat Rate mL/min Glucose Level 113 Calcium Level 8.3 L Phosphorus Level 4.9 Magnesium Level 2.5 Lab Scanned Report BLOOD TRANSFUSION Medications Medication Current Medications Vancomycin HCl (Vanco Iv Per Pharmacy) VANCOMYCIN PER PHARMACY PER PROTOCOL XX ; Start 07/28/18 at 17:30 Albuterol/ Ipratropium (Duoneb) 3 ml Q6H RESP THERAPY HHN Last administered on 08/02/18at 01:07; Admin Dose 3 ML; Start 07/28/18 at 20:00; Status Hold Calcium/Vitamin D ([place]/ Vit-D (500/200)) 1 tab BID PO Last administered on 08/10/18at 08:48; Admin Dose 1 TAB; Start 07/28/18 at 21:00 Clonazepam (Klonopin) 0.5 mg BID PRN PO ANXIETY Last administered on 08/04/18 21:00; Admin Dose 0.5 MG; Start 07/28/18 at 21:00 Clonidine (Catapres) 0.1 mg TID PRN PO ELEVATED BLOOD PRESSURE Last administered on 07/29/18 16:54; Admin Dose 0.1 MG; Start 07/28/18 at 21:00 Hydromorphone HCl (Dilaudid) 2 mg Q4H PRN PO SEVERE PAIN LEVEL 7-10 Last administered on 08/01/18 23:34; Admin Dose 2 MG; Start 07/28/18 at 21:00 Docusate Sodium (Colace) 100 mg BID PRN PO CONSTIPATION; Start 07/28/18 at 21:00 Gabapentin (Neurontin) 200 mg BID PO Last administered on 08/10/18 08:48; Admin Dose 200 MG; Start 07/28/18 at 21:00 Magnesium Hydroxide (Milk Of Mag) 30 ml DAILY PRN PO CONSTIPATION; Start 07/28/18 at 21:00 Acetaminophen/ Hydrocodone Bitart ([place] (10/325)) 1 tab Q4H PRN PO MODERATE PAIN LEVEL 4-6 Last administered on 08/01/18 21:02; Admin Dose 1 TAB; Start 07/28/18 at 21:00 Carisoprodol (Soma) 350 mg BID PRN PO MUSCLE SPASMS; Start 07/28/18 at 21:00 Trazodone HCl (Desyrel) 50 mg HS PRN PO INSOMNIA Last administered on 07/29/18 20:29; Admin Dose 50 MG; Start 07/28/18 at 21:00 Ondansetron HCl (Zofran Inj) 4 mg Q6H PRN IV NAUSEA AND/OR VOMITING; Start 07/28/18 at 21:00 Methylprednisolone Sodium Succinate (Solu-Medrol) 40 mg DAILY IV Last administered on 08/10/18 08:48; Admin Dose 40 MG; Start 07/29/18 at 09:00 Ascorbic Acid (Vitamin C) 500 mg TID PO Last administered on 08/10/18 08:48; Admin Dose 500 MG; Start 07/29/18 at 09:00 Lorazepam (Ativan) 0.5 mg Q6H PRN PO ANXIETY Last administered on 08/05/18 04:06; Admin Dose 0.5 MG; Start 07/29/18 at 20:30 Guaifenesin/ Dextromethorphan (Robitussin Dm Liquid Cup) 5 ml Q4H PRN PO COUGH Last administered on 08/01/18 16:32; Admin Dose 5 ML; Start 07/29/18 at 20:30 Diltiazem HCl 125 ml @ 5 mls/hr TITRATE IV Last administered on 07/30/18 09:40; Admin Dose 5 MLS/HR; Start 07/30/18 at 09:00; Status Hold Dronedarone (Multaq) 400 mg BID WITH MEALS PO Last administered on 08/10/18 06:11; Admin Dose 400 MG; Start 07/30/18 at 09:30 Propofol 100 ml @ 1.986 mls/ hr Q12H IV Last administered on 08/05/18 06:36; Admin Dose 11.916 MLS/HR; Start 08/02/18 at 10:00 Albuterol (Ventolin Hfa) 4 puff Q6H RESP THERAPY INH Last administered on 08/10/18 07:22; Admin Dose 4 PUFF; Start 08/02/18 at 14:00 Ipratropium [place] (Atrovent Hfa) 4 puff Q6H RESP THERAPY INH Last administered on 08/10/18 07:22; Admin Dose 4 PUFF; Start 08/02/18 at 14:00 Fluconazole/ Sodium Chloride 50 ml @ 50 mls/hr Q24H IVPB Last administered on 08/09/18 17:53; Admin Dose 50 MLS/HR; Start 08/02/18 at 17:00 Acetaminophen (Tylenol Liquid) 650 mg Q6H PRN GTB MILD PAIN (1-3) OR TEMPERATURE; Start 08/03/18 at 09:30 Docusate Sodium (Colace Liquid Cup) 100 mg BID PRN GTB CONSTIPATION,,,,; Start 08/03/18 at 09:30 IV Flush (NS 10 ml) 10 ml PRN PRN IV IV PROTOCOL; Start 08/03/18 at 10:30 Fentanyl 100 ml @ 2.5 mls/hr TITRATE IV Last administered on 08/10/18 08:57; Admin Dose 0.5 MLS/HR; Start 08/04/18 at 09:00 Lansoprazole (Prevacid) 30 mg DAILY@06 GTB Last administered on 08/10/18 06:11; Admin Dose 30 MG; Start 08/05/18 at 06:00 Midazolam HCl 50 ml @ 1 mls/hr TITRATE IV Last administered on 08/10/18 06:11; Admin Dose 5 MLS/HR; Start 08/05/18 at 12:00 Norepinephrine 250 ml @ 1.875 mls/ hr TITRATE IV Last administered on 08/05/18 13:00; Admin Dose 30 MLS/HR; Start 08/05/18 at 13:00 Phenylephrine HCl 80 mg/Dextrose 250 ml @ 18.75 mls/ hr TITRATE IV Last administered on 08/09/18 01:42; Admin Dose 6.56 MLS/HR; Start 08/06/18 at 15:30 Vancomycin/Sodium Chloride 250 ml @ 125 mls/hr Q48H IVPB Last administered on 08/09/18 10:53; Admin Dose 125 MLS/HR; Start 08/09/18 at 11:00 Levofloxacin/ Dextrose 50 ml @ 50 mls/hr DAILY IVPB Last administered on 08/10/18 08:48; Admin Dose 50 MLS/HR; Start 08/08/18 at 09:00 DEJUAN OSULLIVAN Aug 10, 2018 09:26
[2018-08-10] MEDS: ALBUMIN HUMAN 25% 100 ML IV SCH ×2 (10:00→18:52)
--- NOTE | 2018-08-10 12:52 | CONS ---
Assessment/Plan Assessment/Plan Hospital Course (Demo Recall) No acute events overnight patient remains intubated in no distress afebrile WBC 13.8 H&H 9.1 and 28.9 platelets 48 neutrophils 91 BUN 97 creatinine 1.7 Indwelling: Endotracheal tube, NG tube, [place], PICC line Microbiology: Sputum culture on August 06 grew MRSA and [place] albicans Antimicrobials: Vancomycin, Levaquin, fluconazole Allergies: Penicillin, tetracycline Physical examination: This is a fragile chronically ill-appearing wasted elderly woman who is in no distress. Head atraumatic normocephalic sclera nonicteric. Neck is supple. Chest rise symmetrical breath sounds diminished bases. Heart: S1-S2. Abdomen soft bowel sounds present extremities without cyanosis. Assessment: 1. Severe sepsis, status post shock 2. Acute on chronic respiratory failure, status post intubation 08/02/18 3. Healthcare associated pneumonia/ARDS 4. Coag negative staph bacteremia, possibly contaminant 5. Anemia with progressive thrombocytopenia 6. ARF 5. Peripheral arterial disease status post stent 6. Pancreatic head mass, patient is following with a specialist yearly 7. Recent right hip fracture status post surgical intervention Plan: Remains unchanged, continue antibiotics, vent management per pulmonary, prognosis guarded Consultation Date/Type/Reason Admit Date/Time Jul 28, 2018 at 18:16 Initial Consult Date 07/28/18 Type of Consult id Requesting Provider: ABDIAS STAPLES MD Date/Time of Note DATE: 08/10/18 TIME: 12:49 Exam/Review of Systems Exam Vitals Vital Signs Date Temp Pulse Resp B/P (MAP) Pulse Ox O2 O2 Flow FiO2 Time Delivery Rate 08/10/18 82 12:00 08/10/18 60 12:00 08/10/18 24 99 11:10 08/10/18 140/55 Mechanical 07:00 (83) Ventilator 08/10/18 98.3 04:00 Intake and Output 08/09/18 08/09/18 08/10/18 1515:00 23:00 07:00 IntakeIntake Total 1792.20 ml 1140 ml 1090 ml OutputOutput Total 600 ml 560 ml 775 ml BalanceBalance 1192.20 ml 580 ml 315 ml Results Result Diagram: 08/10/18 0400 08/10/18 0400 Results 24hrs Laboratory Tests Test 08/10/18 04:00 08/10/18 05:23 White Blood Count 13.8 H Red Blood Count 2.94 #L Hemoglobin 9.1 #L Hematocrit 28.9 #L Mean Corpuscular Volume 98.3 Mean Corpuscular Hemoglobin 31.0 Mean Corpuscular Hemoglobin Concent 31.5 L Red Cell Distribution Width 19.5 H Platelet Count 48 L Mean Platelet Volume Immature Granulocytes % 5.800 H Neutrophils % Segmented Neutrophils % (Manual) 91 H Lymphocytes % Lymphocytes % (Manual) 4 L Monocytes % Monocytes % (Manual) 2 Eosinophils % Basophils % Myelocytes % (Manual) 3 H Nucleated Red Blood Cells % 3 H Immature Granulocytes # 0.800 H Neutrophils # Lymphocytes (Manual) 0.5 L Lymphocytes # Monocytes # Monocytes # (Manual) 0.2 L Eosinophils # Basophils # Myelocytes # 0.4 H Nucleated Red Blood Cells # Platelet Estimate DECREASED Polychromasia 1+ Anisocytosis 1+ Macrocytosis 1+ Sodium Level 138 Potassium Level 5.3 H Chloride Level 107 Carbon Dioxide Level 21 Anion Gap 10 # Blood Urea Nitrogen 97 H Creatinine 1.70 H Est Glomerular Filtrat Rate mL/min Glucose Level 113 Calcium Level 8.3 L Phosphorus Level 4.9 Magnesium Level 2.5 Lab Scanned Report BLOOD TRANSFUSION Medications Medication Current Medications Vancomycin HCl (Vanco Iv Per Pharmacy) VANCOMYCIN PER PHARMACY PER PROTOCOL XX ; Start 07/28/18 at 17:30 Albuterol/ Ipratropium (Duoneb) 3 ml Q6H RESP THERAPY HHN Last administered on 08/02/18at 01:07; Admin Dose 3 ML; Start 07/28/18 at 20:00; Status Hold Calcium/Vitamin D ([place]/ Vit-D (500/200)) 1 tab BID PO Last administered on 08/10/18at 08:48; Admin Dose 1 TAB; Start 07/28/18 at 21:00 Clonazepam (Klonopin) 0.5 mg BID PRN PO ANXIETY Last administered on 08/04/18at 21:00; Admin Dose 0.5 MG; Start 07/28/18 at 21:00 Clonidine (Catapres) 0.1 mg TID PRN PO ELEVATED BLOOD PRESSURE Last administered on 07/29/18at 16:54; Admin Dose 0.1 MG; Start 07/28/18 at 21:00 Hydromorphone HCl (Dilaudid) 2 mg Q4H PRN PO SEVERE PAIN LEVEL 7-10 Last administered on 08/01/18 23:34; Admin Dose 2 MG; Start 07/28/18 at 21:00 Docusate Sodium (Colace) 100 mg BID PRN PO CONSTIPATION; Start 07/28/18 at 21:00 Gabapentin (Neurontin) 200 mg BID PO Last administered on 08/10/18 08:48; Admin Dose 200 MG; Start 07/28/18 at 21:00 Magnesium Hydroxide (Milk Of Mag) 30 ml DAILY PRN PO CONSTIPATION; Start 07/28/18 at 21:00 Acetaminophen/ Hydrocodone Bitart ([place] (10)) 1 tab Q4H PRN PO MODERATE PAIN LEVEL 4-6 Last administered on 08/01/18 21:02; Admin Dose 1 TAB; Start at 21:00 Carisoprodol (Soma) 350 mg BID PRN PO MUSCLE SPASMS; Start 07/28/18 at 21:00 Trazodone HCl (Desyrel) 50 mg HS PRN PO INSOMNIA Last administered on 07/29/18 20:29; Admin Dose 50 MG; Start 07/28/18 at 21:00 Ondansetron HCl (Zofran Inj) 4 mg Q6H PRN IV NAUSEA AND/OR VOMITING; Start 07/28/18 at 21:00 Methylprednisolone Sodium Succinate (Solu-Medrol) 40 mg DAILY IV Last administered on 08/10/18 08:48; Admin Dose 40 MG; Start 07/29/18 at 09:00 Ascorbic Acid (Vitamin C) 500 mg TID PO Last administered on 08/10/18 08:48; Admin Dose 500 MG; Start 07/29/18 at 09:00 Lorazepam (Ativan) 0.5 mg Q6H PRN PO ANXIETY Last administered on 08/05/18 04:06; Admin Dose 0.5 MG; Start 07/29/18 at 20:30 Guaifenesin/ Dextromethorphan (Robitussin Dm Liquid Cup) 5 ml Q4H PRN PO COUGH Last administered on 08/01/18 16:32; Admin Dose 5 ML; Start 07/29/18 at 20:30 Diltiazem HCl 125 ml @ 5 mls/hr TITRATE IV Last administered on 07/30/18 09:40; Admin Dose 5 MLS/HR; Start 07/30/18 at 09:00; Status Hold Dronedarone (Multaq) 400 mg BID WITH MEALS PO Last administered on 08/10/18 06:11; Admin Dose 400 MG; Start 07/30/18 at 09:30 Propofol 100 ml @ 1.986 mls/ hr Q12H IV Last administered on 08/05/18 06:36; Admin Dose 11.916 MLS/HR; Start 08/02/18 at 10:00 Albuterol (Ventolin Hfa) 4 puff Q6H RESP THERAPY INH Last administered on 08/10/18 07:22; Admin Dose 4 PUFF; Start 08/02/18 at 14:00 Ipratropium [place] (Atrovent Hfa) 4 puff Q6H RESP THERAPY INH Last administered on 08/10/18 07:22; Admin Dose 4 PUFF; Start 08/02/18 at 14:00 Fluconazole/ Sodium Chloride 50 ml @ 50 mls/hr Q24H IVPB Last administered on 08/09/18 17:53; Admin Dose 50 MLS/HR; Start 08/02/18 at 17:00 Acetaminophen (Tylenol Liquid) 650 mg Q6H PRN GTB MILD PAIN (1-3) OR TEMPERATURE; Start 08/03/18 at 09:30 Docusate Sodium (Colace Liquid Cup) 100 mg BID PRN GTB CONSTIPATION,,,,; Start 08/03/18 at 09:30 IV Flush (NS 10 ml) 10 ml PRN PRN IV IV PROTOCOL; Start 08/03/18 at 10:30 Fentanyl 100 ml @ 2.5 mls/hr TITRATE IV Last administered on 08/10/18 08:57; Admin Dose 0.5 MLS/HR; Start 08/04/18 at 09:00 Lansoprazole (Prevacid) 30 mg DAILY@06 GTB Last administered on 08/10/18 06:11; Admin Dose 30 MG; Start 08/05/18 at 06:00 Midazolam HCl 50 ml @ 1 mls/hr TITRATE IV Last administered on 08/10/18 10:46; Admin Dose 7 MLS/HR; Start 08/05/18 at 12:00 Norepinephrine 250 ml @ 1.875 mls/ hr TITRATE IV Last administered on 08/05/18at 13:00; Admin Dose 30 MLS/HR; Start 08/05/18 at 13:00 Phenylephrine HCl 80 mg/Dextrose 250 ml @ 18.75 mls/ hr TITRATE IV Last administered on 08/09/18at 01:42; Admin Dose 6.56 MLS/HR; Start 08/06/18 at 15:30 Vancomycin/Sodium Chloride 250 ml @ 125 mls/hr Q48H IVPB Last administered on 08/09/18at 10:53; Admin Dose 125 MLS/HR; Start 08/09/18 at 11:00 Levofloxacin/ Dextrose 50 ml @ 50 mls/hr DAILY IVPB Last administered on 08/10/18at 08:48; Admin Dose 50 MLS/HR; Start 08/08/18 at 09:00 Albumin Human 100 ml @ 100 mls/hr Q8H IV ; Start 08/10/18 at 10:00; Stop 08/11/18 at 02:59 ANDREW SMITH NP Aug 10, 2018 12:51
--- NOTE | 2018-08-10 13:45 | PN ---
Date/Time of Note Date/Time of Note DATE: 08/10/18 TIME: 13:41 Assessment/Plan VTE Prophylaxis Risk score (from Ns)>0 risk: 12 SCD applied (from [facility]): Yes Pharmacological prophylaxis: NA/contraindicated Pharm contraindication: thrombocytopenia Lines/Catheters IV Catheter Type (from [facility]): PICC Line Central line still needed: Yes Urinary Cath still in place: Yes Reason Cath still needed: urinary retention Assessment/Plan Hospital Course Patient continues on ventilatory support patient is currently on fentanyl drip f or pain, patient is nonresponsive during sedation vacation pending CT of the brain if patient is stable to go to CT. Assessment/Plan - Acute hypoxemic respiratory failure due to healthcare-acquired pneumonia/ ARDS. Continue ventilatory support, steroids. from pulmonary standpoint. - Anemia of acute blood loss secondary to nosebleed admission, resolved. status post blood transfusion, continue to monitor hemoglobin and hematocrit. - Sepsis with gram-positive bacteremia. Continue antibiotics per ID. Dr. Brown is following in infection disease consultation. - Bilateral pulmonary fibrosis. Continue supplemental oxygen and symptomatic treatment with steroids. - Chronic obstructive pulmonary disease. Continue DuoNeb and steroids. - Nonobstructive coronary artery disease as per cardiac catheterization in 2013. Dr. Frost is following from cardiac standpoint. - Paroxysmal atrial fibrillation. Patient had an episode of atrial fibrillation with rapid ventricular response and was on Cardizem drip, currently in sinus rhythm. - Hypertension. Continue metoprolol and Lasix. p.r.n. clonidine. - Peripheral artery disease, status post stent. - Dyslipidemia. Continue Lipitor. - MARQUES, Dr. Salazar from nephrology standpoint. - Recent right hip fracture, status post surgery. - Pancreatic head mass. As per patient, she has been going to a specialist ever y year for followup. - Anxiety and depression. - Poor prognosis, Dr. Greenwood is asked to see patient in palliative services consultation. Critical care time spent more than 35 minutes. Further recommendations based on clinical course. Plan of care discussed with Dr. Pack. Result Diagram: 08/10/18 0400 08/10/18 0400 Results 24hrs Laboratory Tests Test 08/10/18 04:00 08/10/18 05:23 White Blood Count 13.8 H Red Blood Count 2.94 #L Hemoglobin 9.1 #L Hematocrit 28.9 #L Mean Corpuscular Volume 98.3 Mean Corpuscular Hemoglobin 31.0 Mean Corpuscular Hemoglobin Concent 31.5 L Red Cell Distribution Width 19.5 H Platelet Count 48 L Mean Platelet Volume Immature Granulocytes % 5.800 H Neutrophils % Segmented Neutrophils % (Manual) 91 H Lymphocytes % Lymphocytes % (Manual) 4 L Monocytes % Monocytes % (Manual) 2 Eosinophils % Basophils % Myelocytes % (Manual) 3 H Nucleated Red Blood Cells % 3 H Immature Granulocytes # 0.800 H Neutrophils # Lymphocytes (Manual) 0.5 L Lymphocytes # Monocytes # Monocytes # (Manual) 0.2 L Eosinophils # Basophils # Myelocytes # 0.4 H Nucleated Red Blood Cells # Platelet Estimate DECREASED Polychromasia 1+ Anisocytosis 1+ Macrocytosis 1+ Sodium Level 138 Potassium Level 5.3 H Chloride Level 107 Carbon Dioxide Level 21 Anion Gap 10 # Blood Urea Nitrogen 97 H Creatinine 1.70 H Est Glomerular Filtrat Rate mL/min Glucose Level 113 Calcium Level 8.3 L Phosphorus Level 4.9 Magnesium Level 2.5 Lab Scanned Report BLOOD TRANSFUSION Exam/Review of Systems Exam Vitals Vital Signs Date Temp Pulse Resp B/P (MAP) Pulse Ox O2 O2 Flow FiO2 Time Delivery Rate 08/10/18 82 12:00 08/10/18 60 12:00 08/10/18 24 99 11:10 08/10/18 140/55 Mechanical 07:00 (83) Ventilator 08/10/18 98.3 04:00 Intake and Output 08/09/18 08/09/18 08/10/18 1515:00 23:00 07:00 IntakeIntake Total 1792.20 ml 1140 ml 1090 ml OutputOutput Total 600 ml 560 ml 775 ml BalanceBalance 1192.20 ml 580 ml 315 ml Exam Constitutional: frail, other (Orally intubated) ENMT: other (OGT) Neck: supple Respiratory: diminished breath sounds Gastrointestinal: soft, non-tender Extremities: normal pulses Neurological: other (non-responsive) Results Results 24hrs Laboratory Tests Test 08/10/18 04:00 08/10/18 05:23 White Blood Count 13.8 H Red Blood Count 2.94 #L Hemoglobin 9.1 #L Hematocrit 28.9 #L Mean Corpuscular Volume 98.3 Mean Corpuscular Hemoglobin 31.0 Mean Corpuscular Hemoglobin Concent 31.5 L Red Cell Distribution Width 19.5 H Platelet Count 48 L Mean Platelet Volume Immature Granulocytes % 5.800 H Neutrophils % Segmented Neutrophils % (Manual) 91 H Lymphocytes % Lymphocytes % (Manual) 4 L Monocytes % Monocytes % (Manual) 2 Eosinophils % Basophils % Myelocytes % (Manual) 3 H Nucleated Red Blood Cells % 3 H Immature Granulocytes # 0.800 H Neutrophils # Lymphocytes (Manual) 0.5 L Lymphocytes # Monocytes # Monocytes # (Manual) 0.2 L Eosinophils # Basophils # Myelocytes # 0.4 H Nucleated Red Blood Cells # Platelet Estimate DECREASED Polychromasia 1+ Anisocytosis 1+ Macrocytosis 1+ Sodium Level 138 Potassium Level 5.3 H Chloride Level 107 Carbon Dioxide Level 21 Anion Gap 10 # Blood Urea Nitrogen 97 H Creatinine 1.70 H Est Glomerular Filtrat Rate mL/min Glucose Level 113 Calcium Level 8.3 L Phosphorus Level 4.9 Magnesium Level 2.5 Lab Scanned Report BLOOD TRANSFUSION Medications Medication Current Medications Vancomycin HCl (Vanco Iv Per Pharmacy) VANCOMYCIN PER PHARMACY PER PROTOCOL XX ; Start 07/28/18 at 17:30 Albuterol/ Ipratropium (Duoneb) 3 ml Q6H RESP THERAPY HHN Last administered on 08/02/18at 01:07; Admin Dose 3 ML; Start 07/28/18 at 20:00; Status Hold Calcium/Vitamin D (Oyster Shell/ Vit-D (500/200)) 1 tab BID PO Last administered on 08/10/18 08:48; Admin Dose 1 TAB; Start 07/28/18 at 21:00 Clonazepam (Klonopin) 0.5 mg BID PRN PO ANXIETY Last administered on 08/04/18at 21:00; Admin Dose 0.5 MG; Start 07/28/18 at 21:00 Clonidine (Catapres) 0.1 mg TID PRN PO ELEVATED BLOOD PRESSURE Last administered on 07/29/18at 16:54; Admin Dose 0.1 MG; Start 07/28/18 at 21:00 Hydromorphone HCl (Dilaudid) 2 mg Q4H PRN PO SEVERE PAIN LEVEL 7-10 Last administered on 08/01/18at 23:34; Admin Dose 2 MG; Start 07/28/18 at 21:00 Docusate Sodium (Colace) 100 mg BID PRN PO CONSTIPATION; Start 07/28/18 at 21:00 Gabapentin (Neurontin) 200 mg BID PO Last administered on 08/10/18 08:48; Admin Dose 200 MG; Start 07/28/18 at 21:00 Magnesium Hydroxide (Milk Of Mag) 30 ml DAILY PRN PO CONSTIPATION; Start 07/28/18 at 21:00 Acetaminophen/ Hydrocodone Bitart ([place] (10/325)) 1 tab Q4H PRN PO MODERATE PAIN LEVEL 4-6 Last administered on 08/01/18 21:02; Admin Dose 1 TAB; Start 07/28/18 at 21:00 Carisoprodol (Soma) 350 mg BID PRN PO MUSCLE SPASMS; Start 07/28/18 at 21:00 Trazodone HCl (Desyrel) 50 mg HS PRN PO INSOMNIA Last administered on 07/29/18 20:29; Admin Dose 50 MG; Start 07/28/18 at 21:00 Ondansetron HCl (Zofran Inj) 4 mg Q6H PRN IV NAUSEA AND/OR VOMITING; Start 07/28/18 at 21:00 Methylprednisolone Sodium Succinate (Solu-Medrol) 40 mg DAILY IV Last adm inistered on 08/10/18 08:48; Admin Dose 40 MG; Start 07/29/18 at 09:00 Ascorbic Acid (Vitamin C) 500 mg TID PO Last administered on 08/10/18 08:48; Admin Dose 500 MG; Start 07/29/18 at 09:00 Lorazepam (Ativan) 0.5 mg Q6H PRN PO ANXIETY Last administered on 08/05/18 04:06; Admin Dose 0.5 MG; Start 07/29/18 at 20:30 Guaifenesin/ Dextromethorphan (Robitussin Dm Liquid Cup) 5 ml Q4H PRN PO COUGH Last administered on 08/01/18 16:32; Admin Dose 5 ML; Start 07/29/18 at 20:30 Diltiazem HCl 125 ml @ 5 mls/hr TITRATE IV Last administered on 07/30/18 09:40; Admin Dose 5 MLS/HR; Start 07/30/18 at 09:00; Status Hold Dronedarone (Multaq) 400 mg BID WITH MEALS PO Last administered on 08/10/18 06:11; Admin Dose 400 MG; Start 07/30/18 at 09:30 Propofol 100 ml @ 1.986 mls/ hr Q12H IV Last administered on 08/05/18 06:36; Admin Dose 11.916 MLS/HR; Start 08/02/18 at 10:00 Albuterol (Ventolin Hfa) 4 puff Q6H RESP THERAPY INH Last administered on 08/10/18 07:22; Admin Dose 4 PUFF; Start 08/02/18 at 14:00 Ipratropium [place] (Atrovent Hfa) 4 puff Q6H RESP THERAPY INH Last administered on 08/10/18 07:22; Admin Dose 4 PUFF; Start 08/02/18 at 14:00 Fluconazole/ Sodium Chloride 50 ml @ 50 mls/hr Q24H IVPB Last administered on 08/09/18 17:53; Admin Dose 50 MLS/HR; Start 08/02/18 at 17:00 Acetaminophen (Tylenol Liquid) 650 mg Q6H PRN GTB MILD PAIN (1-3) OR TEMPERATURE; Start 08/03/18 at 09:30 Docusate Sodium (Colace Liquid Cup) 100 mg BID PRN GTB CONSTIPATION,,,,; Start 08/03/18 at 09:30 IV Flush (NS 10 ml) 10 ml PRN PRN IV IV PROTOCOL; Start 08/03/18 at 10:30 Fentanyl 100 ml @ 2.5 mls/hr TITRATE IV Last administered on 08/10/18 08:57; Admin Dose 0.5 MLS/HR; Start 08/04/18 at 09:00 Lansoprazole (Prevacid) 30 mg DAILY@06 GTB Last administered on 08/10/18 06:11; Admin Dose 30 MG; Start 08/05/18 at 06:00 Midazolam HCl 50 ml @ 1 mls/hr TITRATE IV Last administered on 08/10/18 10:46; Admin Dose 7 MLS/HR; Start 08/05/18 at 12:00 Norepinephrine 250 ml @ 1.875 mls/ hr TITRATE IV Last administered on 08/05/18 13:00; Admin Dose 30 MLS/HR; Start 08/05/18 at 13:00 Phenylephrine HCl 80 mg/Dextrose 250 ml @ 18.75 mls/ hr TITRATE IV Last administered on 08/09/18at 01:42; Admin Dose 6.56 MLS/HR; Start 08/06/18 at 15:30 Vancomycin/Sodium Chloride 250 ml @ 125 mls/hr Q48H IVPB Last administered on 08/09/18at 10:53; Admin Dose 125 MLS/HR; Start 08/09/18 at 11:00 Levofloxacin/ Dextrose 50 ml @ 50 mls/hr DAILY IVPB Last administered on 08/10/18at 08:48; Admin Dose 50 MLS/HR; Start 08/08/18 at 09:00 Albumin Human 100 ml @ 100 mls/hr Q8H IV ; Start 08/10/18 at 10:00; Stop 08/11/18 at 02:59 Miscellaneous Information (*Rx Drug Level Order Reminder*) RANDOM VANCO LEVEL... ONCE ONCE XX ; Start 08/11/18 at 05:00; Stop 08/11/18 at 05:01 RAMÓN VILLALOBOS Aug 10, 2018 13:45
--- NOTE | 2018-08-10 17:54 | CONS ---
Consult Date/Type/Reason Admit Date/Time Jul 28, 2018 at 18:16 Initial Consult Date 07/28/18 Type of Consultation: cv Requesting Provider: ABDIAS STAPLES MD Date/Time of Note DATE: 08/10/18 TIME: 17:53 Subjective Cardiology follow-up progress note Subjective: Discussed with the staff and patient's son and daughter at the bedside telemetry was reviewed. Patient REMAINS INTUBATED on vent in ICU. currently down to 50% O2 she remains in NSR now with no more episode of atrial fibrillation Patient still has bleeding from ET tube Patient is lethargic and unresponsive Objective: General: Elderly female INTUBATED on vent . HEENT: NC/AT. pupils are equal. round. NECK: + JVD. no stridor. CV regular rate and rhythm systolic murmur; no gallop or rubs. PULM: no wheezing + rhonchi. GI: SOFT, NT, ND, no rebound or guarding Extremity: + LE edema. no clubbing. neuro: Unresponsive Psych: calm rectal: deferred : Deferred EKG was personally within normal sinus rhythm with no evidence of ischemia CT pulmonary angiogram done in the emergency room shows: 1. Moderate pulmonary fibrosis, worse at the bilateral lung apices. Associated mediastinal adenopathy. Underlying mass not entirely excluded. Further evaluation with PET-CT may be obtained. 2. Small right multiloculated pleural effusion. Moderate left layering pleural effusion. 3. Streaky bibasilar opacities compatible with atelectasis or pneumonia. 4. Dilated pulmonary trunk and bilateral pulmonary arteries compatible with sequelae of pulmonary hypertension. 5. Left renal 4 cm hyperdense cyst or mass. Further evaluation with multiphase contrast enhanced CT or MR may be obtained. Echocardiogram was personally reviewed which shows: Normal left ventricular systolic function. Normal left ventricular cavity size. Mild concentric left ventricular hypertrophy. Ejection fraction is visually estimated at 55 %. There is mild enlargement of left atrium. Normal appearance of the mitral valve. Mild mitral valve regurgitation. Aortic sclerosis without significant stenosis. Aortic cusps appear mildly calcified. Trileaflet aortic valve. Trace aortic valve regurgitation. Normal appearance of the tricuspid valve. Estimated peak PA systolic pressure 71 mmHg. There is mild tricuspid regurgitation. Normal size and normal respiratory collapse consistent with normal right atrial pressure. CXR 08/05 Again seen are diffuse coarse interstitial infiltrates with superimposed ground-glass densities, slightly more confluent within the perihilar regions and right lower lobe. The osseous structures are unremarkable. Chest x-ray August 06, 2018 shows: Stable patchy infiltrates throughout both lungs with potential small pleural effusions. Stable diffuse mild interstitial prominence in both lungs. Interstitial prominence could be chronic. Objective Vitals Vital Signs Date Temp Pulse Resp B/P (MAP) Pulse Ox O2 O2 Flow FiO2 Time Delivery Rate 08/10/18 92 16:00 08/10/18 26 96 60 15:35 08/10/18 124/50 Mechanical 14:00 (74) Ventilator 08/10/18 98.7 13:00 Intake and Output 08/09/18 08/09/18 08/10/18 1515:00 23:00 07:00 IntakeIntake Total 1792.20 ml 1140 ml 1090 ml OutputOutput Total 600 ml 560 ml 775 ml BalanceBalance 1192.20 ml 580 ml 315 ml Results/Medications Result Diagram: 08/10/18 0400 08/10/18 0400 Results 24 hrs Laboratory Tests Test 08/10/18 04:00 08/10/18 05:23 White Blood Count 13.8 H Red Blood Count 2.94 #L Hemoglobin 9.1 #L Hematocrit 28.9 #L Mean Corpuscular Volume 98.3 Mean Corpuscular Hemoglobin 31.0 Mean Corpuscular Hemoglobin Concent 31.5 L Red Cell Distribution Width 19.5 H Platelet Count 48 L Mean Platelet Volume Immature Granulocytes % 5.800 H Neutrophils % Segmented Neutrophils % (Manual) 91 H Lymphocytes % Lymphocytes % (Manual) 4 L Monocytes % Monocytes % (Manual) 2 Eosinophils % Basophils % Myelocytes % (Manual) 3 H Nucleated Red Blood Cells % 3 H Immature Granulocytes # 0.800 H Neutrophils # Lymphocytes (Manual) 0.5 L Lymphocytes # Monocytes # Monocytes # (Manual) 0.2 L Eosinophils # Basophils # Myelocytes # 0.4 H Nucleated Red Blood Cells # Platelet Estimate DECREASED Polychromasia 1+ Anisocytosis 1+ Macrocytosis 1+ Sodium Level 138 Potassium Level 5.3 H Chloride Level 107 Carbon Dioxide Level 21 Anion Gap 10 # Blood Urea Nitrogen 97 H Creatinine 1.70 H Est Glomerular Filtrat Rate mL/min Glucose Level 113 Calcium Level 8.3 L Phosphorus Level 4.9 Magnesium Level 2.5 Lab Scanned Report BLOOD TRANSFUSION Home Meds Reported Medications Ondansetron Hcl* (Zofran*) 8 Mg Tablet, 8 MG PO Q6H PRN for NAUSEA AND OR VOMITING, TAB 07/28/18 Guaifenesin (Xpect) 400 Mg Tablet, 400 MG PO Q12, TAB 07/28/18 Acetaminophen* (Acetaminophen*) 650 Mg Tablet, 650 MG PO Q6H PRN for PAIN AND OR ELEVATED TEMP, #30 TAB 07/28/18 Trazodone Hcl* (Trazodone Hcl*) 50 Mg Tablet, 50 MG PO QHS, #30 TAB 07/28/18 Carisoprodol* (Carisoprodol*) 350 Mg Tablet, 350 MG PO BID PRN for MUSCLE SPASMS, TAB 07/28/18 Montelukast Sodium* (Singulair*) 10 Mg Tablet, 10 MG PO QHS, #30 TAB 07/28/18 Sennosides* (Senna Lax*) 8.6 Mg Tablet, 2 TAB PO QHS, TAB 07/28/18 Fluoxetine Hcl* (Prozac*) 20 Mg Capsule, 20 MG PO DAILY, CAP 07/28/18 Promethazine Hcl* (Phenergan* Liq) 6.25 Mg/5 Ml Syrup, 12.5 MG PO Q6H PRN for COUGH, ML 07/28/18 Lansoprazole* (Lansoprazole*) 30 Mg Capsule.dr, 30 MG PO DAILY, CAP 07/28/18 Vit C/E/Zn/Coppr/Lutein/Zeaxan (Preservision Areds 2 Softgel) 1 Each Capsule, 2 EACH PO DAILY, CAP 07/28/18 Prednisone* (Prednisone*) 20 Mg Tab, 40 MG PO DAILY, TAB 07/28/18 Chlorhexidine Gluconate (Peridex) 473 Ml Mouthwash, 15 ML MM BID, BOTTLE 07/28/18 [place]-3 Acid Ethyl Esters (Lovaza) 1 Gm Capsule, 2 GM PO DAILY, CAP 07/28/18 Hydrocodone/Acetaminophen ([place] 10-325 Tablet) 1 Each Tablet, 1 EACH PO Q4 PRN for SEVERE PAIN LEVEL 7-10, TAB 07/28/18 Multivitamins* (Theragran*) 1 Tab Tab, 1 TAB PO DAILY, TAB 07/28/18 Guaifenesin (Guaifenesin) 600 Mg Tablet.sa, 600 MG PO BID, TAB 07/28/18 Magnesium Hydroxide* (Milk Of Magnesia*) 400 Mg/5 Ml Oral.susp, 30 ML PO DAILY PRN for CHEST PAIN, ML 07/28/18 Metoprolol Tartrate* (Lopressor*) 50 Mg Tab, 50 MG PO DAILY, #60 TAB HOLD FOR SBP<110 OR HR<60 07/28/18 Atorvastatin Calcium (Atorvastatin Calcium) 10 Mg Tablet, 10 MG PO QHS, #30 TAB 07/28/18 Lidocaine (Lidocaine) 5 Gm Cream..g., 5 GM TP DAILY 07/28/18 Furosemide* (Lasix*) 20 Mg Tablet, 20 MG PO DAILY, TAB 07/28/18 Lactobacillus Rhamnosus* (Culturelle*) 1 Each Cap.sprink, 1 CAP PO DAILY, CAP 07/28/18 Ipratropium-Albuterol (Ipratropium-Albuterol) 0.5-3 Mg/3 Ml Ampul.neb, 3 ML INHALATION Q4 PRN for SHORTNESS OF BREATH, #30 VIAL 07/28/18 Gabapentin* (Gabapentin*) 100 Mg Capsule, 200 MG PO BID, #180 CAP 07/28/18 Folic Acid* (Folic Acid*) 1 Mg Tablet, 1 MG PO DAILY, TAB 07/28/18 Ferrous Sulfate* (Ferrous Sulfate*) 325 Mg Tabec, 325 MG PO TID, TAB 07/28/18 Estrogens Conjugated* (Premarin*) 0.45 Mg Tablet, 0.45 MG PO DAILY, TAB 07/28/18 Bisacodyl (Dulcolax) 10 Mg Supp.rect, 10 MG RC Q48, SUPP.RECT 07/28/18 Docusate Sodium* (Colace*) 100 Mg Capsule, 100 MG PO QHS PRN for CONSTIPATION, #60 CAP 07/28/18 Hydromorphone Hcl* (Dilaudid*) 2 Mg Tablet, 2 MG PO Q6H PRN for SEVERE PAIN LEVEL 7-10, TAB 07/28/18 Cyanocobalamin* (Vitamin B12*) 500 Mcg Tab, 500 MCG PO DAILY, TAB 07/28/18 Clonidine Hcl* (Clonidine Hcl*) 0.1 Mg Tab, 0.1 MG PO Q8, TAB 07/28/18 Clonazepam* (Clonazepam*) 0.5 Mg Tablet, 0.5 MG PO BID PRN for ANXIETY, TAB 07/28/18 Calcium Carbonate/Vitamin D3 ([place] 500+D Tablet) 1 Each Tablet, 1 EACH PO BID, TAB 07/28/18 Fluticasone/Vilanterol (Breo Ellipta 200-25 Mcg INH) 1 Each Blst.w.dev, 1 PUFF INHALATION DAILY, #1 INHALER 07/28/18 Lorazepam* (Lorazepam*) 0.5 Mg Tablet, 0.5 MG PO Q6 PRN for ANXIETY, TAB 07/28/18 Diphenhydramine Hcl* (Benadryl*) 25 Mg Cap, 25 MG PO Q8 PRN for PRN, CAP 07/28/18 Aspirin* (Aspirin* Chew) 81 Mg Tab.chew, 81 MG PO DAILY, TAB.CHEW 07/28/18 Ascorbic Acid* (Vitamin C*) 500 Mg Capsule.sa, 500 MG PO TID, CAP 07/28/18 Apixaban* (Eliquis*) 5 Mg Tablet, 5 MG PO BID, TAB 07/28/18 Hydrocortisone Acetate (Anusol-Hc) 25 Mg Supp.rect, 25 MG SC BID PRN for CONSTIPATION, SUPP.RECT 07/28/18 Amiodarone Hcl* (Amiodarone Hcl*) 200 Mg Tablet, 200 MG PO BID, #30 TAB HOLD FOR SBP<110 OR HR<60 07/28/18 Medications Current Medications Vancomycin HCl (Vanco Iv Per Pharmacy) VANCOMYCIN PER PHARMACY PER PROTOCOL XX ; Start 07/28/18 at 17:30 Albuterol/ Ipratropium (Duoneb) 3 ml Q6H RESP THERAPY HHN Last administered on 08/02/18at 01:07; Admin Dose 3 ML; Start 07/28/18 at 20:00; Status Hold Calcium/Vitamin D ([place]yster [place]/ Vit-D (500/200)) 1 tab BID PO Last administered on 08/10/18at 08:48; Admin Dose 1 TAB; Start 07/28/18 at 21:00 Clonazepam (Klonopin) 0.5 mg BID PRN PO ANXIETY Last administered on 08/04/18at 21:00; Admin Dose 0.5 MG; Start 07/28/18 at 21:00 Clonidine (Catapres) 0.1 mg TID PRN PO ELEVATED BLOOD PRESSURE Last administered on 07/29/18 16:54; Admin Dose 0.1 MG; Start 07/28/18 at 21:00 Hydromorphone HCl (Dilaudid) 2 mg Q4H PRN PO SEVERE PAIN LEVEL 7-10 Last administered on 08/01/18 23:34; Admin Dose 2 MG; Start 07/28/18 at 21:00 Docusate Sodium (Colace) 100 mg BID PRN PO CONSTIPATION; Start 07/28/18 at 21:00 Gabapentin (Neurontin) 200 mg BID PO Last administered on 08/10/18 08:48; Admin Dose 200 MG; Start 07/28/18 at 21:00 Magnesium Hydroxide (Milk Of Mag) 30 ml DAILY PRN PO CONSTIPATION; Start 07/28/18 at 21:00 Acetaminophen/ Hydrocodone Bitart ([place] (10/325)) 1 tab Q4H PRN PO MODERATE PAIN LEVEL 4-6 Last administered on 08/01/18 21:02; Admin Dose 1 TAB; Start 07/28/18 at 21:00 Carisoprodol (Soma) 350 mg BID PRN PO MUSCLE SPASMS; Start 07/28/18 at 21:00 Trazodone HCl (Desyrel) 50 mg HS PRN PO INSOMNIA Last administered on 07/29/18 20:29; Admin Dose 50 MG; Start 07/28/18 at 21:00 Ondansetron HCl (Zofran Inj) 4 mg Q6H PRN IV NAUSEA AND/OR VOMITING; Start 07/28/18 at 21:00 Methylprednisolone Sodium Succinate (Solu-Medrol) 40 mg DAILY IV Last administered on 08/10/18 08:48; Admin Dose 40 MG; Start 07/29/18 at 09:00 Ascorbic Acid (Vitamin C) 500 mg TID PO Last administered on 08/10/18 08:48; Admin Dose 500 MG; Start 07/29/18 at 09:00 Lorazepam (Ativan) 0.5 mg Q6H PRN PO ANXIETY Last administered on 08/05/18 04:06; Admin Dose 0.5 MG; Start 07/29/18 at 20:30 Guaifenesin/ Dextromethorphan (Robitussin Dm Liquid Cup) 5 ml Q4H PRN PO COUGH Last administered on 08/01/18 16:32; Admin Dose 5 ML; Start 07/29/18 at 20:30 Diltiazem HCl 125 ml @ 5 mls/hr TITRATE IV Last administered on 07/30/18 09:40; Admin Dose 5 MLS/HR; Start 07/30/18 at 09:00; Status Hold Dronedarone (Multaq) 400 mg BID WITH MEALS PO Last administered on 08/10/18 06:11; Admin Dose 400 MG; Start 07/30/18 at 09:30 Propofol 100 ml @ 1.986 mls/ hr Q12H IV Last administered on 08/05/18 06:36; Admin Dose 11.916 MLS/HR; Start 08/02/18 at 10:00 Albuterol (Ventolin Hfa) 4 puff Q6H RESP THERAPY INH Last administered on 08/10/18 07:22; Admin Dose 4 PUFF; Start 08/02/18 at 14:00 Ipratropium [place] (Atrovent Hfa) 4 puff Q6H RESP THERAPY INH Last administered on 08/10/18 07:22; Admin Dose 4 PUFF; Start 08/02/18 at 14:00 Fluconazole/ Sodium Chloride 50 ml @ 50 mls/hr Q24H IVPB Last administered on 08/09/18 17:53; Admin Dose 50 MLS/HR; Start 08/02/18 at 17:00 Acetaminophen (Tylenol Liquid) 650 mg Q6H PRN GTB MILD PAIN (1-3) OR TEMPERATURE; Start 08/03/18 at 09:30 Docusate Sodium (Colace Liquid Cup) 100 mg BID PRN GTB CONSTIPATION,,,,; Start 08/03/18 at 09:30 IV Flush (NS 10 ml) 10 ml PRN PRN IV IV PROTOCOL; Start 08/03/18 at 10:30 Fentanyl 100 ml @ 2.5 mls/hr TITRATE IV Last administered on 08/10/18 08:57; Admin Dose 0.5 MLS/HR; Start 08/04/18 at 09:00 Lansoprazole (Prevacid) 30 mg DAILY@06 GTB Last administered on 08/10/18 06:11; Admin Dose 30 MG; Start 08/05/18 at 06:00 Midazolam HCl 50 ml @ 1 mls/hr TITRATE IV Last administered on 08/10/18at 10:46; Admin Dose 7 MLS/HR; Start 08/05/18 at 12:00 Norepinephrine 250 ml @ 1.875 mls/ hr TITRATE IV Last administered on at 13:00; Admin Dose 30 MLS/HR; Start 08/05/18 at 13:00 Phenylephrine HCl 80 mg/Dextrose 250 ml @ 18.75 mls/ hr TITRATE IV Last administered on 08/09/18at 01:42; Admin Dose 6.56 MLS/HR; Start 08/06/18 at 15:30 Vancomycin/Sodium Chloride 250 ml @ 125 mls/hr Q48H IVPB Last administered on 08/09/18at 10:53; Admin Dose 125 MLS/HR; Start 08/09/18 at 11:00 Levofloxacin/ Dextrose 50 ml @ 50 mls/hr DAILY IVPB Last administered on 08/10/18at 08:48; Admin Dose 50 MLS/HR; Start 08/08/18 at 09:00 Albumin Human 100 ml @ 100 mls/hr Q8H IV ; Start 08/10/18 at 10:00; Stop 08/11/18 at 02:59 Miscellaneous Information (*Rx Drug Level Order Reminder*) RANDOM VANCO LEVEL... ONCE ONCE XX ; Start 08/11/18 at 05:00; Stop 08/11/18 at 05:01 Assessment/Plan Hospital Course (Demo Recall) 1. Hypoxemic respiratory failure: Status post intubation on the vent now 2. Pulmonary fibrosis/severe COPD 3. Elevated BNP most likely secondary to above and significant pulmonary hypertension 4. paroxysmal atrial fibrillation; currently converted back to normal sinus rhythm 5. Encephalopathy 6. pneumonia 7. History of recent fall and hip fracture status post surgery 8. Anemia and OB positive stool 9. Lactic acidosis 10. Hypertension 11. Pulmonary hypertension 12.shock. sepsis 13. Acute encephalopathy has a letter of consciousness 14. Thrombocytopenia Recommendations: off the Eliquis given her OB positive stool as well as thrombocytopenia and worsening anemia Continue with vent support. Antibiotic management as per internal medicine We will continue to monitor on telemetry Correct electrolytes as needed Transfusions as needed off the amiodarone given concern about her severe pulmonary disease and pulmonary fibrosis. cont Multaq TSH is within normal limits Given her pulmonary hypertension and was started on Revatio but she is too hypotensive to tolerate and has been stopped now. Continue with vent support. CT of the head to be taken once patient is stable . Thank you for his referral. We will continue to follow along with you DAYRON ROGERS MD [facility] DAYRON ROGERS MD Aug 10, 2018 17:54
[2018-08-10] MEDS: FLUCONAZOLE 100 MG/50 ML (PMX) 50 ML IVPB SCH (18:34)
[2018-08-10] MEDS: ACETAMINOPHEN 650MG/20.3ML CUP GTB PRN (21:28)
[2018-08-10] MEDS: LORAZEPAM 0.5 MG TAB PO PRN (21:28)
[2018-08-11] VITALS (31 sets, daily range): BP systolic 111–189; BP diastolic 41–97; PULSE 77–130; RESP 13–27
[2018-08-11] MEDS: IPRATROPIUM (HFA) 12.9 GM INHALER INH SCH ×4 (03:30→19:21)
[2018-08-11] MEDS: ALBUTEROL HFA 8 GM INHALER INH SCH ×4 (03:31→19:22)
[2018-08-11] MEDS: ALBUMIN HUMAN 25% 100 ML IV SCH (04:13)
[2018-08-11] MEDS: LANSOPRAZOLE 30 MG CAP GTB SCH (05:50)
--- NOTE | 2018-08-11 07:09 | CONS ---
Consult Date/Type/Reason Admit Date/Time Jul 28, 2018 at 18:16 Initial Consult Date 07/28/18 Type of Consultation: cv Requesting Provider: ABDIAS STAPLES MD Date/Time of Note DATE: 08/11/18 TIME: 07:06 Subjective Cardiology follow-up progress note Subjective: Discussed with the staff telemetry was reviewed. Patient has converted to atrial fibrillation with ventricular response this morning Patient REMAINS INTUBATED on vent in ICU. currently on 50% O2 Patient is lethargic and unresponsive Objective: General: Elderly female INTUBATED on vent . HEENT: NC/AT. pupils are equal. round. NECK: + JVD. no stridor. CV r irregularly regular now systolic murmur; no gallop or rubs. PULM: no wheezing + rhonchi. GI: SOFT, NT, ND, no rebound or guarding Extremity: + LE edema. no clubbing. neuro: Unresponsive Psych: calm rectal: deferred : Deferred EKG was personally within normal sinus rhythm with no evidence of ischemia CT pulmonary angiogram done in the emergency room shows: 1. Moderate pulmonary fibrosis, worse at the bilateral lung apices. Associated mediastinal adenopathy. Underlying mass not entirely excluded. Further evaluat ion with PET-CT may be obtained. 2. Small right multiloculated pleural effusion. Moderate left layering pleural effusion. 3. Streaky bibasilar opacities compatible with atelectasis or pneumonia. 4. Dilated pulmonary trunk and bilateral pulmonary arteries compatible with sequelae of pulmonary hypertension. 5. Left renal 4 cm hyperdense cyst or mass. Further evaluation with multiphase contrast enhanced CT or MR may be obtained. Echocardiogram was personally reviewed which shows: Normal left ventricular systolic function. Normal left ventricular cavity size. Mild concentric left ventricular hypertrophy. Ejection fraction is visually estimated at 55 %. There is mild enlargement of left atrium. Normal appearance of the mitral valve. Mild mitral valve regurgitation. Aortic sclerosis without significant stenosis. Aortic cusps appear mildly calcified. Trileaflet aortic valve. Trace aortic valve regurgitation. Normal appearance of the tricuspid valve. Estimated peak PA systolic pressure 71 mmHg. There is mild tricuspid regurgitation. Normal size and normal respiratory collapse consistent with normal right atrial pressure. CXR 08/05 Again seen are diffuse coarse interstitial infiltrates with superimposed ground-glass densities, slightly more confluent within the perihilar regions and right lower lobe. The osseous structures are unremarkable. Chest x-ray August 06, 2018 shows: Stable patchy infiltrates throughout both lungs with potential small pleural effusions. Stable diffuse mild interstitial prominence in both lungs. Interstitial pro minence could be chronic. Objective Vitals Vital Signs Date Temp Pulse Resp B/P (MAP) Pulse Ox O2 O2 Flow FiO2 Time Delivery Rate 08/11/18 97 17 111/97 93 Mechanical 06:00 (102) Ventilator 08/11/18 50 05:05 08/11/18 98.0 04:00 Intake and Output 08/10/18 08/10/18 08/11/18 1515:00 23:00 07:00 IntakeIntake Total 679.0 ml 420 ml 652 ml OutputOutput Total 815 ml 800 ml 550 ml BalanceBalance -136.0 ml -380 ml 102 ml Results/Medications Result Diagram: 08/11/18 0500 08/11/18 0400 Results 24 hrs Laboratory Tests Test 08/10/18 17:35 08/11/18 04:00 08/11/18 05:00 Blood Gas Specimen Source Blood arterial Arterial Blood Date Drawn 08/10/2018 8:10:50 PM Arterial Blood pH 7.323 L (Temp corrected) Arterial Blood pCO2 38.2 (Temp correct) Arterial Blood pO2 114.0 H (Temp corrected) Arterial Blood HCO3 19.4 L Arterial Blood Base Excess -6.1 L Arterial Blood 97.6 Oxygen Saturation Vick Test ACCEPTAB Arterial Blood Gas Right Radial Puncture Site Arterial 0.3 Blood Carboxyhemoglobin Arterial Blood Methemoglobin 0.2 Blood Gas A-a O2 Differential 199.5 H Oxyhemoglobin Percent 97.1 Blood Gas Temperature 37.0 Blood Gas Respiration Rate 24.0 Blood Gas Actual 28 Respiration Rate Blood Gas Modality VENT - AC FiO2 50.0 Blood Gas Tidal Volume 500.0 Blood Gas Low PEEP Setting 10.0 Blood Gas Inspiratory Pressure 38.0 Blood Gas Notified Whom MR Blood Gas Notified Time 08/10/2018 8:20:01 PM Sodium Level 140 Potassium Level 5.0 Chloride Level 107 Carbon Dioxide Level 23 Anion Gap 10 Blood Urea Nitrogen 107 H Creatinine 1.68 H Est Glomerular Filtrat Rate mL/min Glucose Level 106 Calcium Level 8.5 Phosphorus Level 5.2 H Magnesium Level 2.6 H Random Vancomycin Level 19.8 White Blood Count 13.7 H Red Blood Count 2.56 L Hemoglobin 8.0 L Hematocrit 25.5 L Mean Corpuscular Volume 99.6 Mean Corpuscular Hemoglobin 31.3 Mean Corpuscular 31.4 L Hemoglobin Concent Red Cell Distribution Width 19.0 H Platelet Count 50 L Mean Platelet Volume 13.4 H Immature Granulocytes % 4.800 H Neutrophils % 80.5 H Lymphocytes % 7.7 L Monocytes % 6.8 Eosinophils % 0.0 Basophils % 0.2 Nucleated Red Blood Cells % 0.7 H Immature Granulocytes # 0.660 H Neutrophils # 11.0 H Lymphocytes # 1.1 Monocytes # 0.9 Eosinophils # 0.0 Basophils # 0.0 Nucleated Red Blood Cells # 0.1 H Home Meds Reported Medications Ondansetron Hcl* (Zofran*) 8 Mg Tablet, 8 MG PO Q6H PRN for NAUSEA AND OR VOMITI NG, TAB 07/28/18 Guaifenesin (Xpect) 400 Mg Tablet, 400 MG PO Q12, TAB 07/28/18 Acetaminophen* (Acetaminophen*) 650 Mg Tablet, 650 MG PO Q6H PRN for PAIN AND OR ELEVATED TEMP, #30 TAB 07/28/18 Trazodone Hcl* (Trazodone Hcl*) 50 Mg Tablet, 50 MG PO QHS, #30 TAB 07/28/18 Carisoprodol* (Carisoprodol*) 350 Mg Tablet, 350 MG PO BID PRN for MUSCLE SPASMS, TAB 07/28/18 Montelukast Sodium* (Singulair*) 10 Mg Tablet, 10 MG PO QHS, #30 TAB 07/28/18 Sennosides* (Senna Lax*) 8.6 Mg Tablet, 2 TAB PO QHS, TAB 07/28/18 Fluoxetine Hcl* (Prozac*) 20 Mg Capsule, 20 MG PO DAILY, CAP 07/28/18 Promethazine Hcl* (Phenergan* Liq) 6.25 Mg/5 Ml Syrup, 12.5 MG PO Q6H PRN for COUGH, ML 07/28/18 Lansoprazole* (Lansoprazole*) 30 Mg Capsule.dr, 30 MG PO DAILY, CAP 07/28/18 Vit C/E/Zn/Coppr/Lutein/Zeaxan (Preservision Areds 2 Softgel) 1 Each Capsule, 2 EACH PO DAILY, CAP 07/28/18 Prednisone* (Prednisone*) 20 Mg Tab, 40 MG PO DAILY, TAB 07/28/18 Chlorhexidine Gluconate (Peridex) 473 Ml Mouthwash, 15 ML MM BID, BOTTLE 07/28/18 Randolph-3 Acid Ethyl Esters (Lovaza) 1 Gm Capsule, 2 GM PO DAILY, CAP 07/28/18 Hydrocodone/Acetaminophen (Worden 10-325 Tablet) 1 Each Tablet, 1 EACH PO Q4 PRN for SEVERE PAIN LEVEL 7-10, TAB 07/28/18 Multivitamins* (Theragran*) 1 Tab Tab, 1 TAB PO DAILY, TAB 07/28/18 Guaifenesin (Guaifenesin) 600 Mg Tablet.sa, 600 MG PO BID, TAB 07/28/18 Magnesium Hydroxide* (Milk Of Magnesia*) 400 Mg/5 Ml Oral.susp, 30 ML PO DAILY PRN for CHEST PAIN, ML 07/28/18 Metoprolol Tartrate* (Lopressor*) 50 Mg Tab, 50 MG PO DAILY, #60 TAB HOLD FOR SBP<110 OR HR<60 07/28/18 Atorvastatin Calcium (Atorvastatin Calcium) 10 Mg Tablet, 10 MG PO QHS, #30 TAB 07/28/18 Lidocaine (Lidocaine) 5 Gm Cream..g., 5 GM TP DAILY 07/28/18 Furosemide* (Lasix*) 20 Mg Tablet, 20 MG PO DAILY, TAB 07/28/18 Lactobacillus Rhamnosus* (Culturelle*) 1 Each Cap.sprink, 1 CAP PO DAILY, CAP 07/28/18 Ipratropium-Albuterol (Ipratropium-Albuterol) 0.5-3 Mg/3 Ml Ampul.neb, 3 ML INHALATION Q4 PRN for SHORTNESS OF BREATH, #30 VIAL 07/28/18 Gabapentin* (Gabapentin*) 100 Mg Capsule, 200 MG PO BID, #180 CAP 07/28/18 Folic Acid* (Folic Acid*) 1 Mg Tablet, 1 MG PO DAILY, TAB 07/28/18 Ferrous Sulfate* (Ferrous Sulfate*) 325 Mg Tabec, 325 MG PO TID, TAB 07/28/18 Estrogens Conjugated* (Premarin*) 0.45 Mg Tablet, 0.45 MG PO DAILY, TAB 07/28/18 Bisacodyl (Dulcolax) 10 Mg Supp.rect, 10 MG RC Q48, SUPP.RECT 07/28/18 Docusate Sodium* (Colace*) 100 Mg Capsule, 100 MG PO QHS PRN for CONSTIPATION, #60 CAP 07/28/18 Hydromorphone Hcl* (Dilaudid*) 2 Mg Tablet, 2 MG PO Q6H PRN for SEVERE PAIN LEVEL 7-10, TAB 07/28/18 Cyanocobalamin* (Vitamin B12*) 500 Mcg Tab, 500 MCG PO DAILY, TAB 07/28/18 Clonidine Hcl* (Clonidine Hcl*) 0.1 Mg Tab, 0.1 MG PO Q8, TAB 07/28/18 Clonazepam* (Clonazepam*) 0.5 Mg Tablet, 0.5 MG PO BID PRN for ANXIETY, TAB 07/28/18 Calcium Carbonate/Vitamin D3 (Oysco 500+D Tablet) 1 Each Tablet, 1 EACH PO BID, TAB 07/28/18 Fluticasone/Vilanterol (Breo Ellipta 200-25 Mcg INH) 1 Each Blst.w.dev, 1 PUFF INHALATION DAILY, #1 INHALER 07/28/18 Lorazepam* (Lorazepam*) 0.5 Mg Tablet, 0.5 MG PO Q6 PRN for ANXIETY, TAB 07/28/18 Diphenhydramine Hcl* (Benadryl*) 25 Mg Cap, 25 MG PO Q8 PRN for PRN, CAP 07/28/18 Aspirin* (Aspirin* Chew) 81 Mg Tab.chew, 81 MG PO DAILY, TAB.CHEW 07/28/18 Ascorbic Acid* (Vitamin C*) 500 Mg Capsule.sa, 500 MG PO TID, CAP 07/28/18 Apixaban* (Eliquis*) 5 Mg Tablet, 5 MG PO BID, TAB 07/28/18 Hydrocortisone Acetate (Anusol-Hc) 25 Mg Supp.rect, 25 MG VA BID PRN for CONSTIPATION, SUPP.RECT 07/28/18 Amiodarone Hcl* (Amiodarone Hcl*) 200 Mg Tablet, 200 MG PO BID, #30 TAB HOLD FOR SBP<110 OR HR<60 07/28/18 Medications Current Medications Vancomycin HCl (Vanco Iv Per Pharmacy) VANCOMYCIN PER PHARMACY PER PROTOCOL XX ; Start 07/28/18 at 17:30 Albuterol/ Ipratropium (Duoneb) 3 ml Q6H RESP THERAPY HHN Last administered on 08/02/18 01:07; Admin Dose 3 ML; Start 07/28/18 at 20:00; Status Hold Calcium/Vitamin D (Oyster Shell/ Vit-D (500/200)) 1 tab BID PO Last adminis tered on 08/10/18 21:28; Admin Dose 1 TAB; Start 07/28/18 at 21:00 Clonazepam (Klonopin) 0.5 mg BID PRN PO ANXIETY Last administered on 08/04/18 21:00; Admin Dose 0.5 MG; Start 07/28/18 at 21:00 Clonidine (Catapres) 0.1 mg TID PRN PO ELEVATED BLOOD PRESSURE Last administered on 07/29/18 16:54; Admin Dose 0.1 MG; Start 07/28/18 at 21:00 Hydromorphone HCl (Dilaudid) 2 mg Q4H PRN PO SEVERE PAIN LEVEL 7-10 Last administered on 08/01/18 23:34; Admin Dose 2 MG; Start 07/28/18 at 21:00 Docusate Sodium (Colace) 100 mg BID PRN PO CONSTIPATION; Start 07/28/18 at 21:00 Gabapentin (Neurontin) 200 mg BID PO Last administered on 08/10/18 21:28; Admin Dose 200 MG; Start 07/28/18 at 21:00 Magnesium Hydroxide (Milk Of Mag) 30 ml DAILY PRN PO CONSTIPATION; Start 07/28/18 at 21:00 Acetaminophen/ Hydrocodone Bitart (Worden (10/325)) 1 tab Q4H PRN PO MODERATE PAIN LEVEL 4-6 Last administered on 08/01/18 21:02; Admin Dose 1 TAB; Start 07/28/18 at 21:00 Carisoprodol (Soma) 350 mg BID PRN PO MUSCLE SPASMS; Start 07/28/18 at 21:00 Trazodone HCl (Desyrel) 50 mg HS PRN PO INSOMNIA Last administered on 07/29/18 20:29; Admin Dose 50 MG; Start 07/28/18 at 21:00 Ondansetron HCl (Zofran Inj) 4 mg Q6H PRN IV NAUSEA AND/OR VOMITING; Start 07/28/18 at 21:00 Methylprednisolone Sodium Succinate (Solu-Medrol) 40 mg DAILY IV Last administered on 08/10/18 08:48; Admin Dose 40 MG; Start 07/29/18 at 09:00 Ascorbic Acid (Vitamin C) 500 mg TID PO Last administered on 08/10/18 21:28; Admin Dose 500 MG; Start 07/29/18 at 09:00 Lorazepam (Ativan) 0.5 mg Q6H PRN PO ANXIETY Last administered on 08/10/18 2 1:28; Admin Dose 0.5 MG; Start 07/29/18 at 20:30 Guaifenesin/ Dextromethorphan (Robitussin Dm Liquid Cup) 5 ml Q4H PRN PO COUGH Last administered on 08/01/18 16:32; Admin Dose 5 ML; Start 07/29/18 at 20:30 Diltiazem HCl 125 ml @ 5 mls/hr TITRATE IV Last administered on 07/30/18 09:40; Admin Dose 5 MLS/HR; Start 07/30/18 at 09:00; Status Hold Dronedarone (Multaq) 400 mg BID WITH MEALS PO Last administered on 08/10/18 18:34; Admin Dose 400 MG; Start 07/30/18 at 09:30 Propofol 100 ml @ 1.986 mls/ hr Q12H IV Last administered on 08/05/18 06:36; Admin Dose 11.916 MLS/HR; Start 08/02/18 at 10:00 Albuterol (Ventolin Hfa) 4 puff Q6H RESP THERAPY INH Last administered on 08/11/18 03:31; Admin Dose 4 PUFF; Start 08/02/18 at 14:00 Ipratropium Morgan (Atrovent Hfa) 4 puff Q6H RESP THERAPY INH Last administered on 08/11/18 03:30; Admin Dose 4 PUFF; Start 08/02/18 at 14:00 Fluconazole/ Sodium Chloride 50 ml @ 50 mls/hr Q24H IVPB Last administered on 08/10/18 18:34; Admin Dose 50 MLS/HR; Start 08/02/18 at 17:00 Acetaminophen (Tylenol Liquid) 650 mg Q6H PRN GTB MILD PAIN (1-3) OR TE MPERATURE Last administered on 08/10/18 21:28; Admin Dose 650 MG; Start 08/03/18 at 09:30 Docusate Sodium (Colace Liquid Cup) 100 mg BID PRN GTB CONSTIPATION,,,,; Start 08/03/18 at 09:30 IV Flush (NS 10 ml) 10 ml PRN PRN IV IV PROTOCOL; Start 08/03/18 at 10:30 Fentanyl 100 ml @ 2.5 mls/hr TITRATE IV Last administered on 08/10/18 08:57; Admin Dose 0.5 MLS/HR; Start 08/04/18 at 09:00 Lansoprazole (Prevacid) 30 mg DAILY@06 GTB Last administered on 08/11/18 05:50; Admin Dose 30 MG; Start 08/05/18 at 06:00 Midazolam HCl 50 ml @ 1 mls/hr TITRATE IV Last administered on 08/10/18 10:46; Admin Dose 7 MLS/HR; Start 08/05/18 at 12:00 Norepinephrine 250 ml @ 1.875 mls/ hr TITRATE IV Last administered on 08/05/18 13:00; Admin Dose 30 MLS/HR; Start 08/05/18 at 13:00 Phenylephrine HCl 80 mg/Dextrose 250 ml @ 18.75 mls/ hr TITRATE IV Last administered on 08/09/18 01:42; Admin Dose 6.56 MLS/HR; Start 08/06/18 at 15:30 Vancomycin/Sodium Chloride 250 ml @ 125 mls/hr Q48H IVPB Last administered on 08/09/18 10:53; Admin Dose 125 MLS/HR; Start 08/09/18 at 11:00 Levofloxacin/ Dextrose 50 ml @ 50 mls/hr DAILY IVPB Last administered on 08/10/18 08:48; Admin Dose 50 MLS/HR; Start 08/08/18 at 09:00 Assessment/Plan Hospital Course (Demo Recall) 1. Hypoxemic respiratory failure: Status post intubation on the vent now 2. Pulmonary fibrosis/severe COPD 3. Elevated BNP most likely secondary to above and significant pulmonary hypertension 4. paroxysmal atrial fibrillation; currently converted back to normal sinus rhythm 5. Encephalopathy 6. pneumonia 7. History of recent fall and hip fracture status post surgery 8. Anemia and OB positive stool 9. Lactic acidosis 10. Hypertension 11. Pulmonary hypertension 12. shock. sepsis 13. Acute encephalopathy has a letter of consciousness 14. Thrombocytopenia Recommendations: off the Eliquis given her OB positive stool as well as thrombocytopenia and worsening anemia Continue with vent support. Antibiotic management as per internal medicine We will continue to monitor on telemetry Correct electrolytes as needed Transfusions as needed off the amiodarone given concern about her severe pulmonary disease and pulmonary fibrosis. cont Multaq . Give 1 dose of IV Lasix TSH is within normal limits Continue with vent support. CT of the head to be taken once patient is stable . So far she has been too unstable from a pulmonary standpoint to go for CT . Thank you for his referral. We will continue to follow along with you DAYRON ROGERS MD [facility] DAYRON ROGERS MD Aug 11, 2018 07:09
[2018-08-11] MEDS ORDERED: DIGOXIN 500 MCG INJ IV ONE (07:30)
[2018-08-11] MEDS: DRONEDARONE HYDROCHLORIDE 400 MG TAB PO SCH ×2 (07:51→19:04)
[2018-08-11] MEDS: METHYLPREDNISOLONE 40 MG INJ IV SCH (07:57)
[2018-08-11] MEDS: LEVOFLOXACIN 250MG/D5W (PMX) 50 ML IVPB SCH (07:57)
[2018-08-11] MEDS: GABAPENTIN 100 MG CAP PO SCH ×2 (07:57→21:12)
[2018-08-11] MEDS: ASCORBIC ACID 500 MG TAB PO SCH ×3 (07:57→21:12)
[2018-08-11] MEDS: CALCIUM/VITAMIN D (500/200) TAB PO SCH ×2 (07:57→21:12)
[2018-08-11] MEDS ORDERED: FUROSEMIDE 40 MG INJ IV ONE (08:00)
--- NOTE | 2018-08-11 08:20 | PN ---
DATE: 08/11/2018 SUBJECTIVE: The patient is critically ill. The patient remains on full ventilatory support. FIO2 l evels have been weaning down. No other events noted. No hemoptysis, hematemesis, or hematochezia. Urinary output has been adequate. OBJECTIVE: VITAL SIGNS: Blood pressure is 111/97, respirations 17, pulse 97, temperature 98.0. HEENT: Head is normocephalic. NECK: Supple. HEART: Regular rate. LUNGS: Show diminished breath sounds at the base. ABDOMEN: Soft, nontender to palpation without rebound or guarding. EXTREMITIES: Negative for clubbing, cyanosis. Positive edema. DERMATOLOGIC: No rashes. MUSCULOSKELETAL: No joint effusion. NEUROLOGIC: No change in exam. MEDICATIONS: Reviewed. LABORATORY DATA: Shows sodium 140, potassium 5.0, BUN 107, creatinine 1.68, phosphorus 5.2, magnesiu m 2.6. White count 13.7, hemoglobin 8.0, platelet count is 50. IMAGING STUDIES: Showed bilateral infiltrates. Lines and tubes, unchanged. ABG was reviewed. ASSESSMENT AND PLAN: 1. Nonoliguric acute kidney injury with unknown baseline creatinine. Etiology of acute kidney injur y is secondary to acute tubular necrosis due to sepsis, hemodynamics. The patient appears to be in m aintenance phase of acute tubular necrosis as creatinine appears to have stabilized. Please note juliann t the patient does have a progressive azotemia, which is multifactorial secondary to acute kidney inj ury, hypercatabolic state and IV steroids. At this point, we would continue current treatment plan. Continue gentle diuretic therapy. We will monitor azotemia closely. If azotemia should progressive ly worsen, we would consider renal replacement therapy. 2. Hyperkalemia secondary to acute kidney injury, improved. Continue low-potassium diet. Continue diuretic therapy. 3. Anemia. Continue to monitor hemoglobin and hematocrit levels. 4. Mixed acid base disorder. The patient has a metabolic acidosis, metabolic alkalosis and respirat ory acidosis. The patient's ABG was reviewed. Continue to monitor. 5. Hypernatremia, improved. Continue free water flushes. 6. Volume overload, etiology is multifactorial secondary to sepsis, IV fluids, capillary leak. Cont inue intermittent diuretic therapy, monitor electrolytes and renal function closely. 7. Sepsis, status post shock. Continue current antibiotic regimen. 8. Ventilator-dependent respiratory failure. Vent settings and ABG was reviewed. Continue to monit or. 9. Acute encephalopathy, etiology is toxic metabolic. 10. History of peripheral vascular disease. 11. Status post hip arthroplasty. Please note I spent over 30 minutes of critical care time with this patient. Dictated By: GENEVIEVE MENJIVAR DO NR/NTS Conf#: [id number] DID#: [id number] CC: BART FIORE MD; ABDIAS STAPLES MD;*EndCC*
--- NOTE | 2018-08-11 08:38 | CONS ---
Assessment/Plan Assessment/Plan Assessment/Plan (Daily) Ventilator setting; AC of 24, tidal volume 500, PEEP of 10, 50% FiO2. Patient is currently on fentanyl 40 mics per hour. Assessment and recommendations; 1. Patient admitted with severe bilateral pneumonia with ARDS. There has been no significant radiological improvement. 2. A. fib with RVR with history of paroxysmal atrial fibrillation. 3. History of prior tracheostomy decannulation. 4. History of enteric mass, currently benign. 5. History of neuropathy. 6. Anemia and severe thrombocytopenia. 7. Acute renal insufficiency with slight improvement in renal function. Patient maintaining adequate urine output. 8. Generalized anasarca. Patient administered albumin yesterday for 3 doses. 9. Patient off sedation since yesterday morning with altered mental status. Continue current supportive care. Start amiodarone drip. Patient will need to have CT imaging of the brain performed however clinically she is too unstable to be transported to CT scan room. Prognosis is poor. Patient's daughter will be here shortly to discuss further plan of care. 35 minutes of critical care time was spent evaluating the patient. Consultation Date/Type/Reason Admit Date/Time Jul 28, 2018 at 18:16 Initial Consult Date 07/28/18 Type of Consult Pulmonary Requesting Provider: ABDIAS STAPLES MD Date/Time of Note DATE: 08/11/18 TIME: 08:35 24 HR Interval Summary Free Text/Dictation Patient's condition is critical. Patient developed A. fib with RVR. Remains in atrial fibrillation. General exam; elderly female, orally intubated, sedated, currently in no distress. Exam/Review of Systems Exam Vitals Vital Signs Date Temp Pulse Resp B/P (MAP) Pulse Ox O2 O2 Flow FiO2 Time Delivery Rate 08/11/18 82 06:36 08/11/18 17 111/97 93 Mechanical 06:00 (102) Ventilator 08/11/18 50 05:05 08/11/18 98.0 04:00 Intake and Output 08/10/18 08/10/18 08/11/18 1515:00 23:00 07:00 IntakeIntake Total 679.0 ml 420 ml 652 ml OutputOutput Total 815 ml 800 ml 550 ml BalanceBalance -136.0 ml -380 ml 102 ml Exam H EENT exam; supple neck, no JVD. No lymphadenopathy. Midline trachea. No thyromegaly. Orally intubated. Patient is edentulous. There is a well-healed tracheostomy scar. Pupils are small bilaterally. No neck masses. Chest exam; bilateral crackles. S1-S2 audible, no murmurs. Irregular rhythm. Tachycardic. Abdomen exam; soft, no organomegaly. Bowel sounds audible. There is a well- healed epigastric scar. Extremity exam; 3+ edema with multiple ecchymosis. 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 Results Result Diagram: 08/11/18 0500 08/11/18 0400 Results 24hrs Laboratory Tests Test 08/10/18 17:35 08/11/18 04:00 08/11/18 05:00 Blood Gas Specimen Source Blood arterial Arterial Blood Date Drawn 08/10/2018 8:10:50 PM Arterial Blood pH 7.323 L (Temp corrected) Arterial Blood pCO2 38.2 (Temp correct) Arterial Blood pO2 114.0 H (Temp corrected) Arterial Blood HCO3 19.4 L Arterial Blood Base Excess -6.1 L Arterial Blood 97.6 Oxygen Saturation Vick Test ACCEPTAB Arterial Blood Gas Right Radial Puncture Site Arterial 0.3 Blood Carboxyhemoglobin Arterial Blood Methemoglobin 0.2 Blood Gas A-a O2 Differential 199.5 H Oxyhemoglobin Percent 97.1 Blood Gas Temperature 37.0 Blood Gas Respiration Rate 24.0 Blood Gas Actual 28 Respiration Rate Blood Gas Modality VENT - AC FiO2 50.0 Blood Gas Tidal Volume 500.0 Blood Gas Low PEEP Setting 10.0 Blood Gas Inspiratory Pressure 38.0 Blood Gas Notified Whom MR Blood Gas Notified Time 08/10/2018 8:20:01 PM Sodium Level 140 Potassium Level 5.0 Chloride Level 107 Carbon Dioxide Level 23 Anion Gap 10 Blood Urea Nitrogen 107 H Creatinine 1.68 H Est Glomerular Filtrat Rate mL/min Glucose Level 106 Calcium Level 8.5 Phosphorus Level 5.2 H Magnesium Level 2.6 H Random Vancomycin Level 19.8 White Blood Count 13.7 H Red Blood Count 2.56 L Hemoglobin 8.0 L Hematocrit 25.5 L Mean Corpuscular Volume 99.6 Mean Corpuscular Hemoglobin 31.3 Mean Corpuscular 31.4 L Hemoglobin Concent Red Cell Distribution Width 19.0 H Platelet Count 50 L Mean Platelet Volume 13.4 H Immature Granulocytes % 4.800 H Neutrophils % 80.5 H Lymphocytes % 7.7 L Monocytes % 6.8 Eosinophils % 0.0 Basophils % 0.2 Nucleated Red Blood Cells % 0.7 H Immature Granulocytes # 0.660 H Neutrophils # 11.0 H Lymphocytes # 1.1 Monocytes # 0.9 Eosinophils # 0.0 Basophils # 0.0 Nucleated Red Blood Cells # 0.1 H Medications Medication Current Medications Vancomycin HCl (Vanco Iv Per Pharmacy) VANCOMYCIN PER PHARMACY PER PROTOCOL XX ; Start 07/28/18 at 17:30 Albuterol/ Ipratropium (Duoneb) 3 ml Q6H RESP THERAPY HHN Last administered on 08/02/18 01:07; Admin Dose 3 ML; Start 07/28/18 at 20:00; Status Hold Calcium/Vitamin D (Oyster Shell/ Vit-D (500/200)) 1 tab BID PO Last administered on 08/11/18 07:57; Admin Dose 1 TAB; Start 07/28/18 at 21:00 Clonazepam (Klonopin) 0.5 mg BID PRN PO ANXIETY Last administered on 08/04/18at 21:00; Admin Dose 0.5 MG; Start 07/28/18 at 21:00 Clonidine (Catapres) 0.1 mg TID PRN PO ELEVATED BLOOD PRESSURE Last administered on 07/29/18 16:54; Admin Dose 0.1 MG; Start 07/28/18 at 21:00 Hydromorphone HCl (Dilaudid) 2 mg Q4H PRN PO SEVERE PAIN LEVEL 7-10 Last administered on 08/01/18at 23:34; Admin Dose 2 MG; Start 07/28/18 at 21:00 Docusate Sodium (Colace) 100 mg BID PRN PO CONSTIPATION; Start 07/28/18 at 21:00 Gabapentin (Neurontin) 200 mg BID PO Last administered on 08/11/18 07:57; Admin Dose 200 MG; Start 07/28/18 at 21:00 Magnesium Hydroxide (Milk Of Mag) 30 ml DAILY PRN PO CONSTIPATION; Start 07/28/18 at 21:00 Acetaminophen/ Hydrocodone Bitart ([place] (10/325)) 1 tab Q4H PRN PO MODERATE PAIN LEVEL 4-6 Last administered on 08/01/18at 21:02; Admin Dose 1 TAB; Start 07/28/18 at 21:00 Carisoprodol (Soma) 350 mg BID PRN PO MUSCLE SPASMS; Start 07/28/18 at 21:00 Trazodone HCl (Desyrel) 50 mg HS PRN PO INSOMNIA Last administered on 07/29/18 20:29; Admin Dose 50 MG; Start 07/28/18 at 21:00 Ondansetron HCl (Zofran Inj) 4 mg Q6H PRN IV NAUSEA AND/OR VOMITING; Start 07/28/18 at 21:00 Methylprednisolone Sodium Succinate (Solu-Medrol) 40 mg DAILY IV Last administ ered on 08/11/18 07:57; Admin Dose 40 MG; Start 07/29/18 at 09:00 Ascorbic Acid (Vitamin C) 500 mg TID PO Last administered on 08/11/18 07:57; Admin Dose 500 MG; Start 07/29/18 at 09:00 Lorazepam (Ativan) 0.5 mg Q6H PRN PO ANXIETY Last administered on 08/10/18 21:28; Admin Dose 0.5 MG; Start 07/29/18 at 20:30 Guaifenesin/ Dextromethorphan (Robitussin Dm Liquid Cup) 5 ml Q4H PRN PO COUGH Last administered on 08/01/18 16:32; Admin Dose 5 ML; Start 07/29/18 at 20:30 Diltiazem HCl 125 ml @ 5 mls/hr TITRATE IV Last administered on 07/30/18 09:40; Admin Dose 5 MLS/HR; Start 07/30/18 at 09:00; Status Hold Dronedarone (Multaq) 400 mg BID WITH MEALS PO Last administered on 08/11/18 07:51; Admin Dose 400 MG; Start 07/30/18 at 09:30 Propofol 100 ml @ 1.986 mls/ hr Q12H IV Last administered on 08/05/18 06:36; Admin Dose 11.916 MLS/HR; Start 08/02/18 at 10:00 Albuterol (Ventolin Hfa) 4 puff Q6H RESP THERAPY INH Last administered on 08/11/18 07:43; Admin Dose 4 PUFF; Start 08/02/18 at 14:00 Ipratropium [place] (Atrovent Hfa) 4 puff Q6H RESP THERAPY INH Last administered on 08/11/18 07:43; Admin Dose 4 PUFF; Start 08/02/18 at 14:00 Fluconazole/ Sodium Chloride 50 ml @ 50 mls/hr Q24H IVPB Last administered on 08/10/18 18:34; Admin Dose 50 MLS/HR; Start 08/02/18 at 17:00 Acetaminophen (Tylenol Liquid) 650 mg Q6H PRN GTB MILD PAIN (1-3) OR TEMPERATURE Last administered on 08/10/18 21:28; Admin Dose 650 MG; Start 08/03/18 at 09:30 Docusate Sodium (Colace Liquid Cup) 100 mg BID PRN GTB CONSTIPATION,,,,; Start 08/03/18 at 09:30 IV Flush (NS 10 ml) 10 ml PRN PRN IV IV PROTOCOL; Start 08/03/18 at 10:30 Fentanyl 100 ml @ 2.5 mls/hr TITRATE IV Last administered on 08/10/18 08:57; Admin Dose 0.5 MLS/HR; Start 08/04/18 at 09:00 Lansoprazole (Prevacid) 30 mg DAILY@06 GTB Last administered on 08/11/18 05:50; Admin Dose 30 MG; Start 08/05/18 at 06:00 Midazolam HCl 50 ml @ 1 mls/hr TITRATE IV Last administered on 08/10/18 10:46; Admin Dose 7 MLS/HR; Start 08/05/18 at 12:00 Norepinephrine 250 ml @ 1.875 mls/ hr TITRATE IV Last administered on 08/05/18 13:00; Admin Dose 30 MLS/HR; Start 08/05/18 at 13:00 Phenylephrine HCl 80 mg/Dextrose 250 ml @ 18.75 mls/ hr TITRATE IV Last administered on 08/09/18 01:42; Admin Dose 6.56 MLS/HR; Start 08/06/18 at 15:30 Levofloxacin/ Dextrose 50 ml @ 50 mls/hr DAILY IVPB Last administered on 08/11/18 07:57; Admin Dose 50 MLS/HR; Start 08/08/18 at 09:00 Vancomycin/Sodium Chloride 250 ml @ 125 mls/hr Q72H IVPB ; Start 08/11/18 at 11:00 DEJUAN OSULLIVAN 5, 2019 08:38
[2018-08-11] MEDS: FENTAnyl (DRIP) 1000 mcg/100mL 100 ML IV SCH (09:34)
[2018-08-11] MEDS: PROPOFOL 100 ML IV SCH ×2 (10:00→21:12)
[2018-08-11] MEDS: VANCOMYCIN 750 MG (PMX) 250 ML IVPB SCH (11:12)
--- NOTE | 2018-08-11 12:09 | PN ---
Date/Time of Note Date/Time of Note DATE: 08/11/18 TIME: 11:54 Assessment/Plan VTE Prophylaxis Risk score (from [facility] [place]0 risk: 13 SCD applied (from [facility]): Yes Pharmacological prophylaxis: NA/contraindicated Pharm contraindication: thrombocytopenia Lines/Catheters IV Catheter Type (from [place]): PICC Line Central line still needed: Yes Urinary Cath still in place: Yes Reason Cath still needed: urinary retention Assessment/Plan Hospital Course Patient continues on ventilatory support with agonal breathing, on fentanyl and low-dose of Versed drip. Propofol drip was held yesterday however patient remains nonresponsive, unstable to undergo CT of the brain due to high PEEP and oxygen requirement and vent dependence. No pressors patient is afebrile. Dr. Barnes is asked to see patient in neurology consultation. Assessment/Plan - Altered level of consciousness, patient is not stable to undergo CT scan of the brain. Dr. Barnes is asked to see patient in neurology consultation. - Acute hypoxemic respiratory failure due to healthcare-acquired pneumonia/ ARDS. Continue ventilatory support, steroids. from pulmonary standpoint. - Anemia of acute blood loss secondary to nosebleed admission, resolved. status post blood transfusion, continue to monitor hemoglobin and hematocrit. - Sepsis with gram-positive bacteremia. Continue antibiotics per ID. Dr. Brown is following in infection disease consultation. - Bilateral pulmonary fibrosis. Continue supplemental oxygen and symptomatic treatment with steroids. - Chronic obstructive pulmonary disease. Continue DuoNeb and steroids. - Nonobstructive coronary artery disease as per cardiac catheterization in 2013. Dr. Frost is following from cardiac standpoint. - Paroxysmal atrial fibrillation. Patient had an episode of atrial fibrillation with rapid ventricular response and was on Cardizem drip, currently in sinus rhythm. - Hypertension. Continue metoprolol and Lasix. p.r.n. clonidine. - Peripheral artery disease, status post stent. - Dyslipidemia. Continue Lipitor. - MARQUES, Dr. Salazar from nephrology standpoint. - Recent right hip fracture, status post surgery. - Pancreatic head mass. As per patient, she has been going to a specialist every year for followup. - Anxiety and depression. - Poor prognosis, Dr. Greenwood is following in palliative services consultation. Critical care time spent more than 35 minutes. Further recommendations based on clinical course. Plan of care discussed with Dr. Pack. Result Diagram: 2/5/19 0500 08/11/18 0400 Results 24hrs Laboratory Tests Test 08/10/18 17:35 08/11/18 04:00 08/11/18 05:00 Blood Gas Specimen Source Blood arterial Arterial Blood Date Drawn 08/10/2018 8:10:50 PM Arterial Blood pH 7.323 L (Temp corrected) Arterial Blood pCO2 38.2 (Temp correct) Arterial Blood pO2 114.0 H (Temp corrected) Arterial Blood HCO3 19.4 L Arterial Blood Base Excess -6.1 L Arterial Blood 97.6 Oxygen Saturation Vick Test ACCEPTAB Arterial Blood Gas Right Radial Puncture Site Arterial 0.3 Blood Carboxyhemoglobin Arterial Blood Methemoglobin 0.2 Blood Gas A-a O2 Differential 199.5 H Oxyhemoglobin Percent 97.1 Blood Gas Temperature 37.0 Blood Gas Respiration Rate 24.0 Blood Gas Actual 28 Respiration Rate Blood Gas Modality VENT - AC FiO2 50.0 Blood Gas Tidal Volume 500.0 Blood Gas Low PEEP Setting 10.0 Blood Gas Inspiratory Pressure 38.0 Blood Gas Notified Whom MR Blood Gas Notified Time 08/10/2018 8:20:01 PM Sodium Level 140 Potassium Level 5.0 Chloride Level 107 Carbon Dioxide Level 23 Anion Gap 10 Blood Urea Nitrogen 107 H Creatinine 1.68 H Est Glomerular Filtrat Rate mL/min Glucose Level 106 Calcium Level 8.5 Phosphorus Level 5.2 H Magnesium Level 2.6 H Random Vancomycin Level 19.8 White Blood Count 13.7 H Red Blood Count 2.56 L Hemoglobin 8.0 L Hematocrit 25.5 L Mean Corpuscular Volume 99.6 Mean Corpuscular Hemoglobin 31.3 Mean Corpuscular 31.4 L Hemoglobin Concent Red Cell Distribution Width 19.0 H Platelet Count 50 L Mean Platelet Volume 13.4 H Immature Granulocytes % 4.800 H Neutrophils % 80.5 H Lymphocytes % 7.7 L Monocytes % 6.8 Eosinophils % 0.0 Basophils % 0.2 Nucleated Red Blood Cells % 0.7 H Immature Granulocytes # 0.660 H Neutrophils # 11.0 H Lymphocytes # 1.1 Monocytes # 0.9 Eosinophils # 0.0 Basophils # 0.0 Nucleated Red Blood Cells # 0.1 H Exam/Review of Systems Exam Vitals Vital Signs Date Temp Pulse Resp B/P (MAP) Pulse Ox O2 O2 Flow FiO2 Time Delivery Rate 08/11/18 101 24 95 50 11:00 08/11/18 111/97 Mechanical 06:00 (102) Ventilator 08/11/18 98.0 04:00 Intake and Output 08/10/18 08/10/18 08/11/18 1515:00 23:00 07:00 IntakeIntake Total 679.0 ml 420 ml 652 ml OutputOutput Total 815 ml 800 ml 550 ml BalanceBalance -136.0 ml -380 ml 102 ml Exam Constitutional: frail, other (Orally intubated) ENMT: other (OGT) Neck: supple Respiratory: diminished breath sounds Gastrointestinal: soft, non-tender Extremities: normal pulses Neurological: other (non-responsive) Results Results 24hrs Laboratory Tests Test 08/10/18 17:35 08/11/18 04:00 08/11/18 05:00 Blood Gas Specimen Source Blood arterial Arterial Blood Date Drawn 08/10/2018 8:10:50 PM Arterial Blood pH 7.323 L (Temp corrected) Arterial Blood pCO2 38.2 (Temp correct) Arterial Blood pO2 114.0 H (Temp corrected) Arterial Blood HCO3 19.4 L Arterial Blood Base Excess -6.1 L Arterial Blood 97.6 Oxygen Saturation Vick Test ACCEPTAB Arterial Blood Gas Right Radial Puncture Site Arterial 0.3 Blood Carboxyhemoglobin Arterial Blood Methemoglobin 0.2 Blood Gas A-a O2 Differential 199.5 H Oxyhemoglobin Percent 97.1 Blood Gas Temperature 37.0 Blood Gas Respiration Rate 24.0 Blood Gas Actual 28 Respiration Rate Blood Gas Modality VENT - AC FiO2 50.0 Blood Gas Tidal Volume 500.0 Blood Gas Low PEEP Setting 10.0 Blood Gas Inspiratory Pressure 38.0 Blood Gas Notified Whom MR Blood Gas Notified Time 08/10/2018 8:20:01 PM Sodium Level 140 Potassium Level 5.0 Chloride Level 107 Carbon Dioxide Level 23 Anion Gap 10 Blood Urea Nitrogen 107 H Creatinine 1.68 H Est Glomerular Filtrat Rate mL/min Glucose Level 106 Calcium Level 8.5 Phosphorus Level 5.2 H Magnesium Level 2.6 H Random Vancomycin Level 19.8 White Blood Count 13.7 H Red Blood Count 2.56 L Hemoglobin 8.0 L Hematocrit 25.5 L Mean Corpuscular Volume 99.6 Mean Corpuscular Hemoglobin 31.3 Mean Corpuscular 31.4 L Hemoglobin Concent Red Cell Distribution Width 19.0 H Platelet Count 50 L Mean Platelet Volume 13.4 H Immature Granulocytes % 4.800 H Neutrophils % 80.5 H Lymphocytes % 7.7 L Monocytes % 6.8 Eosinophils % 0.0 Basophils % 0.2 Nucleated Red Blood Cells % 0.7 H Immature Granulocytes # 0.660 H Neutrophils # 11.0 H Lymphocytes # 1.1 Monocytes # 0.9 Eosinophils # 0.0 Basophils # 0.0 Nucleated Red Blood Cells # 0.1 H Medications Medication Current Medications Vancomycin HCl (Vanco Iv Per Pharmacy) VANCOMYCIN PER PHARMACY PER PROTOCOL XX ; Start 07/28/18 at 17:30 Albuterol/ Ipratropium (Duoneb) 3 ml Q6H RESP THERAPY HHN Last administered on 08/02/18at 01:07; Admin Dose 3 ML; Start 07/28/18 at 20:00; Status Hold Calcium/Vitamin D (Oyster Shell/ Vit-D (500/200)) 1 tab BID PO Last administered on 08/11/18at 07:57; Admin Dose 1 TAB; Start 07/28/18 at 21:00 Clonazepam (Klonopin) 0.5 mg BID PRN PO ANXIETY Last administered on 08/04/18at 21:00; Admin Dose 0.5 MG; Start 07/28/18 at 21:00 Clonidine (Catapres) 0.1 mg TID PRN PO ELEVATED BLOOD PRESSURE Last administered on 07/29/18at 16:54; Admin Dose 0.1 MG; Start 07/28/18 at 21:00 Hydromorphone HCl (Dilaudid) 2 mg Q4H PRN PO SEVERE PAIN LEVEL 7-10 Last administered on 08/01/18at 23:34; Admin Dose 2 MG; Start 07/28/18 at 21:00 Docusate Sodium (Colace) 100 mg BID PRN PO CONSTIPATION; Start 07/28/18 at 21:00 Gabapentin (Neurontin) 200 mg BID PO Last administered on 08/11/18at 07:57; Admin Dose 200 MG; Start 07/28/18 at 21:00 Magnesium Hydroxide (Milk Of Mag) 30 ml DAILY PRN PO CONSTIPATION; Start 07/28/18 at 21:00 Acetaminophen/ Hydrocodone Bitart ([place] (10/325)) 1 tab Q4H PRN PO MODERATE P AIN LEVEL 4-6 Last administered on 08/01/18 21:02; Admin Dose 1 TAB; Start 07/28/18 at 21:00 Carisoprodol (Soma) 350 mg BID PRN PO MUSCLE SPASMS; Start 07/28/18 at 21:00 Trazodone HCl (Desyrel) 50 mg HS PRN PO INSOMNIA Last administered on 07/29/18 20:29; Admin Dose 50 MG; Start 07/28/18 at 21:00 Ondansetron HCl (Zofran Inj) 4 mg Q6H PRN IV NAUSEA AND/OR VOMITING; Start 07/28/18 at 21:00 Methylprednisolone Sodium Succinate (Solu-Medrol) 40 mg DAILY IV Last administered on 08/11/18 07:57; Admin Dose 40 MG; Start 07/29/18 at 09:00 Ascorbic Acid (Vitamin C) 500 mg TID PO Last administered on 08/11/18 07:57; Admin Dose 500 MG; Start 07/29/18 at 09:00 Lorazepam (Ativan) 0.5 mg Q6H PRN PO ANXIETY Last administered on 08/10/18 21:28; Admin Dose 0.5 MG; Start 07/29/18 at 20:30 Guaifenesin/ Dextromethorphan (Robitussin Dm Liquid Cup) 5 ml Q4H PRN PO COUGH Last administered on 08/01/18 16:32; Admin Dose 5 ML; Start 07/29/18 at 20:30 Diltiazem HCl 125 ml @ 5 mls/hr TITRATE IV Last administered on 07/30/18 09:40; Admin Dose 5 MLS/HR; Start 07/30/18 at 09:00; Status Hold Dronedarone (Multaq) 400 mg BID WITH MEALS PO Last administered on 08/11/18 07:51; Admin Dose 400 MG; Start 07/30/18 at 09:30 Propofol 100 ml @ 1.986 mls/ hr Q12H IV Last administered on 08/05/18 06:36; Admin Dose 11.916 MLS/HR; Start 08/02/18 at 10:00 Albuterol (Ventolin Hfa) 4 puff Q6H RESP THERAPY INH Last administered on 08/11/18 07:43; Admin Dose 4 PUFF; Start 08/02/18 at 14:00 Ipratropium [place] (Atrovent Hfa) 4 puff Q6H RESP THERAPY INH Last administered on 08/11/18 07:43; Admin Dose 4 PUFF; Start 08/02/18 at 14:00 Fluconazole/ Sodium Chloride 50 ml @ 50 mls/hr Q24H IVPB Last administered on 08/10/18 18:34; Admin Dose 50 MLS/HR; Start 08/02/18 at 17:00 Acetaminophen (Tylenol Liquid) 650 mg Q6H PRN GTB MILD PAIN (1-3) OR TEMPERATURE Last administered on 08/10/18 21:28; Admin Dose 650 MG; Start 08/03/18 at 09:30 Docusate Sodium (Colace Liquid Cup) 100 mg BID PRN GTB CONSTIPATION,,,,; Start 08/03/18 at 09:30 IV Flush (NS 10 ml) 10 ml PRN PRN IV IV PROTOCOL; Start 08/03/18 at 10:30 Fentanyl 100 ml @ 2.5 mls/hr TITRATE IV Last administered on 08/11/18 09:34; Admin Dose 3 MLS/HR; Start 08/04/18 at 09:00 Lansoprazole (Prevacid) 30 mg DAILY@06 GTB Last administered on 08/11/18 05:50; Admin Dose 30 MG; Start 08/05/18 at 06:00 Midazolam HCl 50 ml @ 1 mls/hr TITRATE IV Last administered on 08/10/18 10:46; Admin Dose 7 MLS/HR; Start 08/05/18 at 12:00 Norepinephrine 250 ml @ 1.875 mls/ hr TITRATE IV Last administered on 08/05/18 13:00; Admin Dose 30 MLS/HR; Start 08/05/18 at 13:00 Phenylephrine HCl 80 mg/Dextrose 250 ml @ 18.75 mls/ hr TITRATE IV Last administered on 08/09/18 01:42; Admin Dose 6.56 MLS/HR; Start 08/06/18 at 15:30 Levofloxacin/ Dextrose 50 ml @ 50 mls/hr DAILY IVPB Last administered on 08/11/18 07:57; Admin Dose 50 MLS/HR; Start 08/08/18 at 09:00 Vancomycin/Sodium Chloride 250 ml @ 125 mls/hr Q72H IVPB Last administered on 08/11/18at 11:12; Admin Dose 125 MLS/HR; Start 08/11/18 at 11:00 RAMÓN VILLALOBOS Aug 11, 2018 12:07
--- NOTE | 2018-08-11 14:10 | CONS ---
Assessment/Plan Assessment/Plan Hospital Course (Demo Recall) + Afib, obtunded, nad, on vent support, s/p EEG Indwelling: Endotracheal tube, NG tube, [place], PICC line Microbiology: Sputum culture on August 06 grew MRSA and Ivania albicans Antimicrobials: Vancomycin, Levaquin, fluconazole Allergies: Penicillin, tetracycline Physical examination: This is a fragile chronically ill-appearing wasted elderly woman who is in no distress. Head atraumatic normocephalic sclera nonicteric. Neck is supple. Chest rise symmetrical breath sounds diminished bases. Heart: S1-S2. Abdomen soft bowel sounds present extremities without cyanosis. Assessment: 1. Severe sepsis, status post shock 2. Acute on chronic respiratory failure, status post intubation 08/02/18 3. Healthcare associated pneumonia/ARDS 4. Coag negative staph bacteremia, possibly contaminant 5. Anemia with progressive thrombocytopenia 6. ARF 5. Peripheral arterial disease status post stent 6. Pancreatic head mass, patient is following with a specialist yearly 7. Recent right hip fracture status post surgical intervention 8. Encephalopathy, acute Plan: Overall doing poorly, continue antibiotics, vent management per pulmonary, cardiology/neuro rec-s, family meeting today Consultation Date/Type/Reason Admit Date/Time Jul 28, 2018 at 18:16 Initial Consult Date 07/28/18 Type of Consult id Requesting Provider: ABDIAS STAPLES MD Date/Time of Note DATE: 08/11/18 TIME: 14:07 Exam/Review of Systems Exam Vitals Vital Signs Date Temp Pulse Resp B/P (MAP) Pulse Ox O2 O2 Flow FiO2 Time Delivery Rate 08/11/18 96 12:00 08/11/18 24 95 50 11:00 08/11/18 137/47 Mechanical 11:00 (77) Ventilator 08/11/18 98.0 04:00 Intake and Output 08/10/18 08/10/18 08/11/18 1515:00 23:00 07:00 IntakeIntake Total 679.0 ml 420 ml 652 ml OutputOutput Total 815 ml 800 ml 550 ml BalanceBalance -136.0 ml -380 ml 102 ml Results Result Diagram: 08/11/18 0500 08/11/18 0400 Results 24hrs Laboratory Tests Test 08/10/18 17:35 08/11/18 04:00 08/11/18 05:00 Blood Gas Specimen Source Blood arterial Arterial Blood Date Drawn 08/10/2018 8:10:50 PM Arterial Blood pH 7.323 L (Temp corrected) Arterial Blood pCO2 38.2 (Temp correct) Arterial Blood pO2 114.0 H (Temp corrected) Arterial Blood HCO3 19.4 L Arterial Blood Base Excess -6.1 L Arterial Blood 97.6 Oxygen Saturation Vick Test ACCEPTAB Arterial Blood Gas Right Radial Puncture Site Arterial 0.3 Blood Carboxyhemoglobin Arterial Blood Methemoglobin 0.2 Blood Gas A-a O2 Differential 199.5 H Oxyhemoglobin Percent 97.1 Blood Gas Temperature 37.0 Blood Gas Respiration Rate 24.0 Blood Gas Actual 28 Respiration Rate Blood Gas Modality VENT - AC FiO2 50.0 Blood Gas Tidal Volume 500.0 Blood Gas Low PEEP Setting 10.0 Blood Gas Inspiratory Pressure 38.0 Blood Gas Notified Whom MR Blood Gas Notified Time 08/10/2018 8:20:01 PM Sodium Level 140 Potassium Level 5.0 Chloride Level 107 Carbon Dioxide Level 23 Anion Gap 10 Blood Urea Nitrogen 107 H Creatinine 1.68 H Est Glomerular Filtrat Rate mL/min Glucose Level 106 Calcium Level 8.5 Phosphorus Level 5.2 H Magnesium Level 2.6 H Random Vancomycin Level 19.8 White Blood Count 13.7 H Red Blood Count 2.56 L Hemoglobin 8.0 L Hematocrit 25.5 L Mean Corpuscular Volume 99.6 Mean Corpuscular Hemoglobin 31.3 Mean Corpuscular 31.4 L Hemoglobin Concent Red Cell Distribution Width 19.0 H Platelet Count 50 L Mean Platelet Volume 13.4 H Immature Granulocytes % 4.800 H Neutrophils % 80.5 H Lymphocytes % 7.7 L Monocytes % 6.8 Eosinophils % 0.0 Basophils % 0.2 Nucleated Red Blood Cells % 0.7 H Immature Granulocytes # 0.660 H Neutrophils # 11.0 H Lymphocytes # 1.1 Monocytes # 0.9 Eosinophils # 0.0 Basophils # 0.0 Nucleated Red Blood Cells # 0.1 H Medications Medication Current Medications Vancomycin HCl (Vanco Iv Per Pharmacy) VANCOMYCIN PER PHARMACY PER PROTOCOL XX ; Start 07/28/18 at 17:30 Albuterol/ Ipratropium (Duoneb) 3 ml Q6H RESP THERAPY HHN Last administered on 08/02/18at 01:07; Admin Dose 3 ML; Start 07/28/18 at 20:00; Status Hold Calcium/Vitamin D (Oyster Shell/ Vit-D (500/200)) 1 tab BID PO Last administered on 08/11/18 07:57; Admin Dose 1 TAB; Start 07/28/18 at 21:00 Clonazepam (Klonopin) 0.5 mg BID PRN PO ANXIETY Last administered on 08/04/18 21:00; Admin Dose 0.5 MG; Start 07/28/18 at 21:00 Clonidine (Catapres) 0.1 mg TID PRN PO ELEVATED BLOOD PRESSURE Last administered on 07/29/18 16:54; Admin Dose 0.1 MG; Start 07/28/18 at 21:00 Hydromorphone HCl (Dilaudid) 2 mg Q4H PRN PO SEVERE PAIN LEVEL 7-10 Last administered on 08/01/18 23:34; Admin Dose 2 MG; Start 07/28/18 at 21:00 Docusate Sodium (Colace) 100 mg BID PRN PO CONSTIPATION; Start 07/28/18 at 21:00 Gabapentin (Neurontin) 200 mg BID PO Last administered on 08/11/18 07:57; Admin Dose 200 MG; Start 07/28/18 at 21:00 Magnesium Hydroxide (Milk Of Mag) 30 ml DAILY PRN PO CONSTIPATION; Start 07/28/18 at 21:00 Acetaminophen/ Hydrocodone Bitart ([place] (10/325)) 1 tab Q4H PRN PO MODERATE PA IN LEVEL 4-6 Last administered on 08/01/18 21:02; Admin Dose 1 TAB; Start 07/28/18 at 21:00 Carisoprodol (Soma) 350 mg BID PRN PO MUSCLE SPASMS; Start 07/28/18 at 21:00 Trazodone HCl (Desyrel) 50 mg HS PRN PO INSOMNIA Last administered on 07/29/18 20:29; Admin Dose 50 MG; Start 07/28/18 at 21:00 Ondansetron HCl (Zofran Inj) 4 mg Q6H PRN IV NAUSEA AND/OR VOMITING; Start 07/28/18 at 21:00 Methylprednisolone Sodium Succinate (Solu-Medrol) 40 mg DAILY IV Last administered on 08/11/18 07:57; Admin Dose 40 MG; Start 07/29/18 at 09:00 Ascorbic Acid (Vitamin C) 500 mg TID PO Last administered on 08/11/18 07:57; Admin Dose 500 MG; Start 07/29/18 at 09:00 Lorazepam (Ativan) 0.5 mg Q6H PRN PO ANXIETY Last administered on 08/10/18 21:28; Admin Dose 0.5 MG; Start 07/29/18 at 20:30 Guaifenesin/ Dextromethorphan (Robitussin Dm Liquid Cup) 5 ml Q4H PRN PO COUGH Last administered on 08/01/18 16:32; Admin Dose 5 ML; Start 07/29/18 at 20:30 Diltiazem HCl 125 ml @ 5 mls/hr TITRATE IV Last administered on 07/30/18 09:40; Admin Dose 5 MLS/HR; Start 07/30/18 at 09:00; Status Hold Dronedarone (Multaq) 400 mg BID WITH MEALS PO Last administered on 08/11/18 07:51; Admin Dose 400 MG; Start 07/30/18 at 09:30 Propofol 100 ml @ 1.986 mls/ hr Q12H IV Last administered on 08/05/18 06:36; Admin Dose 11.916 MLS/HR; Start 08/02/18 at 10:00 Albuterol (Ventolin Hfa) 4 puff Q6H RESP THERAPY INH Last administered on 08/11/18 07:43; Admin Dose 4 PUFF; Start 08/02/18 at 14:00 Ipratropium [place] (Atrovent Hfa) 4 puff Q6H RESP THERAPY INH Last administered on 08/11/18 07:43; Admin Dose 4 PUFF; Start 08/02/18 at 14:00 Fluconazole/ Sodium Chloride 50 ml @ 50 mls/hr Q24H IVPB Last administered on 08/10/18 18:34; Admin Dose 50 MLS/HR; Start 08/02/18 at 17:00 Acetaminophen (Tylenol Liquid) 650 mg Q6H PRN GTB MILD PAIN (1-3) OR TEMPERATURE Last administered on 08/10/18 21:28; Admin Dose 650 MG; Start 08/03/18 at 09:30 Docusate Sodium (Colace Liquid Cup) 100 mg BID PRN GTB CONSTIPATION,,,,; Start 08/03/18 at 09:30 IV Flush (NS 10 ml) 10 ml PRN PRN IV IV PROTOCOL; Start 08/03/18 at 10:30 Fentanyl 100 ml @ 2.5 mls/hr TITRATE IV Last administered on 08/11/18at 09:34; Admin Dose 3 MLS/HR; Start 08/04/18 at 09:00 Lansoprazole (Prevacid) 30 mg DAILY@06 GTB Last administered on 08/11/18at 05:50; Admin Dose 30 MG; Start 08/05/18 at 06:00 Midazolam HCl 50 ml @ 1 mls/hr TITRATE IV Last administered on 08/10/18at 10:46; Admin Dose 7 MLS/HR; Start 08/05/18 at 12:00 Norepinephrine 250 ml @ 1.875 mls/ hr TITRATE IV Last administered on 08/05/18at 13:00; Admin Dose 30 MLS/HR; Start 08/05/18 at 13:00 Phenylephrine HCl 80 mg/Dextrose 250 ml @ 18.75 mls/ hr TITRATE IV Last administered on 08/09/18at 01:42; Admin Dose 6.56 MLS/HR; Start 08/06/18 at 15:30 Levofloxacin/ Dextrose 50 ml @ 50 mls/hr DAILY IVPB Last administered on 08/11/18at 07:57; Admin Dose 50 MLS/HR; Start 08/08/18 at 09:00 Vancomycin/Sodium Chloride 250 ml @ 125 mls/hr Q72H IVPB Last administered on 08/11/18at 11:12; Admin Dose 125 MLS/HR; Start 08/11/18 at 11:00 ANDREW SMITH NP Aug 11, 2018 14:10
--- NOTE | 2018-08-11 15:01 | CONS ---
Assessment/Plan Assessment/Plan Hospital Course 73 yo F with multiple cerebrovascular risk factors who presents with acute respiratory failure, requiring emergent intubation. It was noted that pt was unresponsive after sedation was held... for which neurology is consulted. As an aside, she is reported to have had multiple episodes of paroxysmal atrial fibrillation over the past few days, requiring amiodarone. Most clinically concerning for stroke. Subclinical seizure is additionally considered. A superimposed acute toxic-metabolic encephalopathy is likely a contributing factor. MARQUES + CXR + PNA P: Obtain CTH without contrast when medically able Await EEG to evaluate for epileptiform activity Add asa daily for stroke prevention Add B12, ammonia levels to exclude reversible causes of encephalopathy Hold sedating medications where possible Other medical management per primary Will follow clinically Consultation Date/Type/Reason Admit Date/Time Jul 28, 2018 at 18:16 Type of Consult Neurology Reason for Consultation ams Requesting Provider: ABDIAS STAPLES MD Date/Time of Note DATE: 08/11/18 TIME: 15:01 Hx of Present Illness This is a 73 yo F with hx of HTN, HLD, paroxysmal afib, and multiple other comorbidities who presented to the ED with SOB and fevers. History was obtained from chart review as pt is intubated and therefore unable to contribute. It is elsewhere noted: HISTORY OF PRESENT ILLNESS: The patient is a 73-year-old female with history of nonobstructive coronary artery disease (cardiac catheterization in 2012) , COPD, hypertension, paroxysmal atrial fibrillation, peripheral vascular disease status post PCI, dyslipidemia, hypothyroidism, anxiety and depression. The patient developed acute respiratory failure back in 2013 and was at [facility]. At that time patient underwent tracheostomy and G-tube placement which she was subsequently decannulated. G tube was also removed. The patient was sent to a board and care and was re hospitalized at [facility] in 06/2016 after a fall which led to splenic laceration. The patient underwent embolization of splenic artery and again underwent tracheostomy and G-tube placement and was sent to [facility]. The patient from [facility] was sent to [facility] subacute unit and after decannulation, she was sent to [facility] halfway facility. Meanwhile G-tube was also removed. The patient few weeks ago, was sent home and her respiratory status was stable. The patient was not even requiring oxygen. The patient, however, sustained a fall at home and was taken to [facility] and was diagnosed with right hip fracture. The patient underwent RF and after about a week, she was sent back to [facility] for recuperation. The patient was seen by me [facility] yesterday due to cough, shortness of breath and fever. The patient was noted to be hypoxemic and had to be put on 4 to 5 liters of oxygen via nasal cannula. The patient also had a fever around 100. The patient was advised to go to the hospital, however, she refused. I explained to her that she could get worse and she needs close monitoring. However, she still did not want to come to the hospital. This morning, I was called by [facility]'s staff that she was getting worse as far as respiratory status is concerned. Meanwhile, I had ordered a stat workup at [facility] and had started her on vancomycin and cefepime along with systemic steroids,& breathing treatment. X-ray done yesterday did reveal bilateral infiltrate and the patient also had leukocytosis. The patient was sent to the ER today due to worsening respiratory status. The patient denied any chest pain, no reported hemoptysis. No reported leg pain, no leg edema. No reported resting leg pain. No reported vomiting, no reported bleeding from any site. The patient looks pale and weak and was getting short of breath even at rest. Initially, she was placed on BiPAP due to significant hypoxemia. The patient did not have any headache, dizziness, syncope. No history of focal weakness. No history of dysuria or hematuria. No vomiting or diarrhea. Subjective hx not possible: pt non-verbal, pt critical status Exam/Review of Systems Exam Vitals Vital Signs Date Temp Pulse Resp B/P (MAP) Pulse Ox O2 O2 Flow FiO2 Time Delivery Rate 08/11/18 96 12:00 08/11/18 24 95 50 11:00 08/11/18 137/47 Mechanical 11:00 (77) Ventilator 08/11/18 98.0 04:00 Intake and Output 08/10/18 08/10/18 08/11/18 1515:00 23:00 07:00 IntakeIntake Total 679.0 ml 420 ml 652 ml OutputOutput Total 815 ml 800 ml 550 ml BalanceBalance -136.0 ml -380 ml 102 ml Exam PE: Gen Appearance: No Apparent Distress HEENT: Intubated; has NGT Cardiovascular: Regular rate Abdomen: Soft Extremities: Dry NE: The patient was comatose. Cranial nerve examination was limited by mental status. Pupils were equal and sluggishly reactive to light. There was no afferent pupillary defect. Funduscopic examination was limited. Face was grossly symmetric, w/ present corneal reflexes. Tone was normal. Muscle bulk was normal. I did not see fasciculations. The patient minimally withdrew to noxious stimulation in the RLE; did not withdraw to noxious stimuli in the other extremities. Coordination and gait testing was limited by mental status. Arm and leg reflexes were symmetric. Connell's sign was absent. Plantar responses were mute. Results Result Diagram: 08/11/18 0500 08/11/18 0400 Results 24hrs Laboratory Tests Test 08/10/18 17:35 08/11/18 04:00 08/11/18 05:00 Blood Gas Specimen Source Blood arterial Arterial Blood Date Drawn 08/10/2018 8:10:50 PM Arterial Blood pH 7.323 L (Temp corrected) Arterial Blood pCO2 38.2 (Temp correct) Arterial Blood pO2 114.0 H (Temp corrected) Arterial Blood HCO3 19.4 L Arterial Blood Base Excess -6.1 L Arterial Blood 97.6 Oxygen Saturation Vick Test ACCEPTAB Arterial Blood Gas Right Radial Puncture Site Arterial 0.3 Blood Carboxyhemoglobin Arterial Blood Methemoglobin 0.2 Blood Gas A-a O2 Differential 199.5 H Oxyhemoglobin Percent 97.1 Blood Gas Temperature 37.0 Blood Gas Respiration Rate 24.0 Blood Gas Actual 28 Respiration Rate Blood Gas Modality VENT - AC FiO2 50.0 Blood Gas Tidal Volume 500.0 Blood Gas Low PEEP Setting 10.0 Blood Gas Inspiratory Pressure 38.0 Blood Gas Notified Whom MR Blood Gas Notified Time 08/10/2018 8:20:01 PM Sodium Level 140 Potassium Level 5.0 Chloride Level 107 Carbon Dioxide Level 23 Anion Gap 10 Blood Urea Nitrogen 107 H Creatinine 1.68 H Est Glomerular Filtrat Rate mL/min Glucose Level 106 Calcium Level 8.5 Phosphorus Level 5.2 H Magnesium Level 2.6 H Random Vancomycin Level 19.8 White Blood Count 13.7 H Red Blood Count 2.56 L Hemoglobin 8.0 L Hematocrit 25.5 L Mean Corpuscular Volume 99.6 Mean Corpuscular Hemoglobin 31.3 Mean Corpuscular 31.4 L Hemoglobin Concent Red Cell Distribution Width 19.0 H Platelet Count 50 L Mean Platelet Volume 13.4 H Immature Granulocytes % 4.800 H Neutrophils % 80.5 H Lymphocytes % 7.7 L Monocytes % 6.8 Eosinophils % 0.0 Basophils % 0.2 Nucleated Red Blood Cells % 0.7 H Immature Granulocytes # 0.660 H Neutrophils # 11.0 H Lymphocytes # 1.1 Monocytes # 0.9 Eosinophils # 0.0 Basophils # 0.0 Nucleated Red Blood Cells # 0.1 H Medications Medication Current Medications Vancomycin HCl (Vanco Iv Per Pharmacy) VANCOMYCIN PER PHARMACY PER PROTOCOL XX ; Start 07/28/18 at 17:30 Albuterol/ Ipratropium (Duoneb) 3 ml Q6H RESP THERAPY HHN Last administered on 08/02/18at 01:07; Admin Dose 3 ML; Start 07/28/18 at 20:00; Status Hold Calcium/Vitamin D (Oyster Shell/ Vit-D (500/200)) 1 tab BID PO Last administered on 08/11/18 07:57; Admin Dose 1 TAB; Start 07/28/18 at 21:00 Clonazepam (Klonopin) 0.5 mg BID PRN PO ANXIETY Last administered on 08/04/18at 21:00; Admin Dose 0.5 MG; Start 07/28/18 at 21:00 Clonidine (Catapres) 0.1 mg TID PRN PO ELEVATED BLOOD PRESSURE Last administered on 07/29/18at 16:54; Admin Dose 0.1 MG; Start 07/28/18 at 21:00 Hydromorphone HCl (Dilaudid) 2 mg Q4H PRN PO SEVERE PAIN LEVEL 7-10 Last administered on 08/01/18at 23:34; Admin Dose 2 MG; Start 07/28/18 at 21:00 Docusate Sodium (Colace) 100 mg BID PRN PO CONSTIPATION; Start 07/28/18 at 21:00 Gabapentin (Neurontin) 200 mg BID PO Last administered on 08/11/18 07:57; Admin Dose 200 MG; Start 07/28/18 at 21:00 Magnesium Hydroxide (Milk Of Mag) 30 ml DAILY PRN PO CONSTIPATION; Start 07/28/18 at 21:00 Acetaminophen/ Hydrocodone Bitart ([place] (10/325)) 1 tab Q4H PRN PO MODERATE PAIN LEVEL 4-6 Last administered on 08/01/18 21:02; Admin Dose 1 TAB; Start 07/28/18 at 21:00 Carisoprodol (Soma) 350 mg BID PRN PO MUSCLE SPASMS; Start 07/28/18 at 21:00 Trazodone HCl (Desyrel) 50 mg HS PRN PO INSOMNIA Last administered on 07/29/18 20:29; Admin Dose 50 MG; Start 07/28/18 at 21:00 Ondansetron HCl (Zofran Inj) 4 mg Q6H PRN IV NAUSEA AND/OR VOMITING; Start 07/28/18 at 21:00 Methylprednisolone Sodium Succinate (Solu-Medrol) 40 mg DAILY IV Last administered on 08/11/18 07:57; Admin Dose 40 MG; Start 07/29/18 at 09:00 Ascorbic Acid (Vitamin C) 500 mg TID PO Last administered on 08/11/18 13:00; Admin Dose 500 MG; Start 07/29/18 at 09:00 Lorazepam (Ativan) 0.5 mg Q6H PRN PO ANXIETY Last administered on 08/10/18 21:28; Admin Dose 0.5 MG; Start 07/29/18 at 20:30 Guaifenesin/ Dextromethorphan (Robitussin Dm Liquid Cup) 5 ml Q4H PRN PO COUGH Last administered on 08/01/18 16:32; Admin Dose 5 ML; Start 07/29/18 at 20:30 Diltiazem HCl 125 ml @ 5 mls/hr TITRATE IV Last administered on 07/30/18 09:40; Admin Dose 5 MLS/HR; Start 07/30/18 at 09:00; Status Hold Dronedarone (Multaq) 400 mg BID WITH MEALS PO Last administered on 08/11/18 07:51; Admin Dose 400 MG; Start 07/30/18 at 09:30 Propofol 100 ml @ 1.986 mls/ hr Q12H IV Last administered on 08/05/18 06:36; Admin Dose 11.916 MLS/HR; Start 08/02/18 at 10:00 Albuterol (Ventolin Hfa) 4 puff Q6H RESP THERAPY INH Last administered on 08/11/18 14:47; Admin Dose 4 PUFF; Start 08/02/18 at 14:00 Ipratropium [place] (Atrovent Hfa) 4 puff Q6H RESP THERAPY INH Last ad ministered on 08/11/18 14:47; Admin Dose 4 PUFF; Start 08/02/18 at 14:00 Fluconazole/ Sodium Chloride 50 ml @ 50 mls/hr Q24H IVPB Last administered on 08/10/18 18:34; Admin Dose 50 MLS/HR; Start 08/02/18 at 17:00 Acetaminophen (Tylenol Liquid) 650 mg Q6H PRN GTB MILD PAIN (1-3) OR TEMPERATURE Last administered on 08/10/18 21:28; Admin Dose 650 MG; Start 08/03/18 at 09:30 Docusate Sodium (Colace Liquid Cup) 100 mg BID PRN GTB CONSTIPATION,,,,; Start 08/03/18 at 09:30 IV Flush (NS 10 ml) 10 ml PRN PRN IV IV PROTOCOL; Start 08/03/18 at 10:30 Fentanyl 100 ml @ 2.5 mls/hr TITRATE IV Last administered on 08/11/18 09:34; Admin Dose 3 MLS/HR; Start 08/04/18 at 09:00 Lansoprazole (Prevacid) 30 mg DAILY@06 GTB Last administered on 08/11/18 05:50; Admin Dose 30 MG; Start 08/05/18 at 06:00 Midazolam HCl 50 ml @ 1 mls/hr TITRATE IV Last administered on 08/10/18 10:46; Admin Dose 7 MLS/HR; Start 08/05/18 at 12:00 Norepinephrine 250 ml @ 1.875 mls/ hr TITRATE IV Last administered on 08/05/18 at 13:00; Admin Dose 30 MLS/HR; Start 08/05/18 at 13:00 Phenylephrine HCl 80 mg/Dextrose 250 ml @ 18.75 mls/ hr TITRATE IV Last administered on 08/09/18 01:42; Admin Dose 6.56 MLS/HR; Start 08/06/18 at 15:30 Levofloxacin/ Dextrose 50 ml @ 50 mls/hr DAILY IVPB Last administered on 08/11/18 07:57; Admin Dose 50 MLS/HR; Start 08/08/18 at 09:00 Vancomycin/Sodium Chloride 250 ml @ 125 mls/hr Q72H IVPB Last administered on 08/11/18at 11:12; Admin Dose 125 MLS/HR; Start 08/11/18 at 11:00 Past Medical History reviewed Home Meds Reported Medications Ondansetron Hcl* (Zofran*) 8 Mg Tablet, 8 MG PO Q6H PRN for NAUSEA AND OR VOMITING, TAB 07/28/18 Guaifenesin (Xpect) 400 Mg Tablet, 400 MG PO Q12, TAB 07/28/18 Acetaminophen* (Acetaminophen*) 650 Mg Tablet, 650 MG PO Q6H PRN for PAIN AND OR ELEVATED TEMP, #30 TAB 07/28/18 Trazodone Hcl* (Trazodone Hcl*) 50 Mg Tablet, 50 MG PO QHS, #30 TAB 07/28/18 Carisoprodol* (Carisoprodol*) 350 Mg Tablet, 350 MG PO BID PRN for MUSCLE S PASMS, TAB 07/28/18 Montelukast Sodium* (Singulair*) 10 Mg Tablet, 10 MG PO QHS, #30 TAB 07/28/18 Sennosides* (Senna Lax*) 8.6 Mg Tablet, 2 TAB PO QHS, TAB 07/28/18 Fluoxetine Hcl* (Prozac*) 20 Mg Capsule, 20 MG PO DAILY, CAP 07/28/18 Promethazine Hcl* (Phenergan* Liq) 6.25 Mg/5 Ml Syrup, 12.5 MG PO Q6H PRN for COUGH, ML 07/28/18 Lansoprazole* (Lansoprazole*) 30 Mg Capsule.dr, 30 MG PO DAILY, CAP 07/28/18 Vit C/E/Zn/Coppr/Lutein/Zeaxan (Preservision Areds 2 Softgel) 1 Each Capsule, 2 EACH PO DAILY, CAP 07/28/18 Prednisone* (Prednisone*) 20 Mg Tab, 40 MG PO DAILY, TAB 07/28/18 Chlorhexidine Gluconate (Peridex) 473 Ml Mouthwash, 15 ML MM BID, BOTTLE 07/28/18 [place]-3 Acid Ethyl Esters (Lovaza) 1 Gm Capsule, 2 GM PO DAILY, CAP 07/28/18 Hydrocodone/Acetaminophen ([place] 10-325 Tablet) 1 Each Tablet, 1 EACH PO Q4 PRN for SEVERE PAIN LEVEL 7-10, TAB 07/28/18 Multivitamins* (Theragran*) 1 Tab Tab, 1 TAB PO DAILY, TAB 07/28/18 Guaifenesin (Guaifenesin) 600 Mg Tablet.sa, 600 MG PO BID, TAB 07/28/18 Magnesium Hydroxide* (Milk Of Magnesia*) 400 Mg/5 Ml Oral.susp, 30 ML PO DAILY PRN for CHEST PAIN, ML 07/28/18 Metoprolol Tartrate* (Lopressor*) 50 Mg Tab, 50 MG PO DAILY, #60 TAB HOLD FOR SBP<110 OR HR<60 07/28/18 Atorvastatin Calcium (Atorvastatin Calcium) 10 Mg Tablet, 10 MG PO QHS, #30 TAB 07/28/18 Lidocaine (Lidocaine) 5 Gm Cream..g., 5 GM TP DAILY 07/28/18 Furosemide* (Lasix*) 20 Mg Tablet, 20 MG PO DAILY, TAB 07/28/18 Lactobacillus Rhamnosus* (Culturelle*) 1 Each Cap.sprink, 1 CAP PO DAILY, CAP 07/28/18 Ipratropium-Albuterol (Ipratropium-Albuterol) 0.5-3 Mg/3 Ml Ampul.neb, 3 ML I NHALATION Q4 PRN for SHORTNESS OF BREATH, #30 VIAL 07/28/18 Gabapentin* (Gabapentin*) 100 Mg Capsule, 200 MG PO BID, #180 CAP 07/28/18 Folic Acid* (Folic Acid*) 1 Mg Tablet, 1 MG PO DAILY, TAB 07/28/18 Ferrous Sulfate* (Ferrous Sulfate*) 325 Mg Tabec, 325 MG PO TID, TAB 07/28/18 Estrogens Conjugated* (Premarin*) 0.45 Mg Tablet, 0.45 MG PO DAILY, TAB 07/28/18 Bisacodyl (Dulcolax) 10 Mg Supp.rect, 10 MG RC Q48, SUPP.RECT 07/28/18 Docusate Sodium* (Colace*) 100 Mg Capsule, 100 MG PO QHS PRN for CONSTIPATION, #60 CAP 07/28/18 Hydromorphone Hcl* (Dilaudid*) 2 Mg Tablet, 2 MG PO Q6H PRN for SEVERE PAIN LEVEL 7-10, TAB 07/28/18 Cyanocobalamin* (Vitamin B12*) 500 Mcg Tab, 500 MCG PO DAILY, TAB 07/28/18 Clonidine Hcl* (Clonidine Hcl*) 0.1 Mg Tab, 0.1 MG PO Q8, TAB 07/28/18 Clonazepam* (Clonazepam*) 0.5 Mg Tablet, 0.5 MG PO BID PRN for ANXIETY, TAB 07/28/18 Calcium Carbonate/Vitamin D3 ([place] 500+D Tablet) 1 Each Tablet, 1 EACH PO BID, TAB 07/28/18 Fluticasone/Vilanterol (Breo Ellipta 200-25 Mcg INH) 1 Each Blst.w.dev, 1 PUFF INHALATION DAILY, #1 INHALER 07/28/18 Lorazepam* (Lorazepam*) 0.5 Mg Tablet, 0.5 MG PO Q6 PRN for ANXIETY, TAB 07/28/18 Diphenhydramine Hcl* (Benadryl*) 25 Mg Cap, 25 MG PO Q8 PRN for PRN, CAP 07/28/18 Aspirin* (Aspirin* Chew) 81 Mg Tab.chew, 81 MG PO DAILY, TAB.CHEW 07/28/18 Ascorbic Acid* (Vitamin C*) 500 Mg Capsule.sa, 500 MG PO TID, CAP 07/28/18 Apixaban* (Eliquis*) 5 Mg Tablet, 5 MG PO BID, TAB 07/28/18 Hydrocortisone Acetate (Anusol-Hc) 25 Mg Supp.rect, [address] BID PRN for CONST IPATION, SUPP.RECT 07/28/18 Amiodarone Hcl* (Amiodarone Hcl*) 200 Mg Tablet, 200 MG PO BID, #30 TAB HOLD FOR SBP<110 OR HR<60 07/28/18 Medications Current Medications Vancomycin HCl (Vanco Iv Per Pharmacy) VANCOMYCIN PER PHARMACY PER PROTOCOL XX ; Start 07/28/18 at 17:30 Albuterol/ Ipratropium (Duoneb) 3 ml Q6H RESP THERAPY HHN Last administered on 08/02/18at 01:07; Admin Dose 3 ML; Start 07/28/18 at 20:00; Status Hold Calcium/Vitamin D (Oyster Shell/ Vit-D (500/200)) 1 tab BID PO Last administered on 08/11/18 07:57; Admin Dose 1 TAB; Start 07/28/18 at 21:00 Clonazepam (Klonopin) 0.5 mg BID PRN PO ANXIETY Last administered on 08/04/18 21:00; Admin Dose 0.5 MG; Start 07/28/18 at 21:00 Clonidine (Catapres) 0.1 mg TID PRN PO ELEVATED BLOOD PRESSURE Last administered on 07/29/18 16:54; Admin Dose 0.1 MG; Start 07/28/18 at 21:00 Hydromorphone HCl (Dilaudid) 2 mg Q4H PRN PO SEVERE PAIN LEVEL 7-10 Last administered on 08/01/18 23:34; Admin Dose 2 MG; Start 07/28/18 at 21:00 Docusate Sodium (Colace) 100 mg BID PRN PO CONSTIPATION; Start 07/28/18 at 21:00 Gabapentin (Neurontin) 200 mg BID PO Last administered on 08/11/18 07:57; Admin Dose 200 MG; Start 07/28/18 at 21:00 Magnesium Hydroxide (Milk Of Mag) 30 ml DAILY PRN PO CONSTIPATION; Start 07/28/18 at 21:00 Acetaminophen/ Hydrocodone Bitart ([place] (10/325)) 1 tab Q4H PRN PO MODERATE PAIN LEVEL 4-6 Last administered on 08/01/18 21:02; Admin Dose 1 TAB; Start 07/28/18 at 21:00 Carisoprodol (Soma) 350 mg BID PRN PO MUSCLE SPASMS; Start 07/28/18 at 21:00 Trazodone HCl (Desyrel) 50 mg HS PRN PO INSOMNIA Last administered on 07/29/18 20:29; Admin Dose 50 MG; Start 07/28/18 at 21:00 Ondansetron HCl (Zofran Inj) 4 mg Q6H PRN IV NAUSEA AND/OR VOMITING; Start 07/28/18 at 21:00 Methylprednisolone Sodium Succinate (Solu-Medrol) 40 mg DAILY IV Last a dministered on 08/11/18 07:57; Admin Dose 40 MG; Start 07/29/18 at 09:00 Ascorbic Acid (Vitamin C) 500 mg TID PO Last administered on 08/11/18 13:00; Admin Dose 500 MG; Start 07/29/18 at 09:00 Lorazepam (Ativan) 0.5 mg Q6H PRN PO ANXIETY Last administered on 08/10/18 21:28; Admin Dose 0.5 MG; Start 07/29/18 at 20:30 Guaifenesin/ Dextromethorphan (Robitussin Dm Liquid Cup) 5 ml Q4H PRN PO COUGH Last administered on 08/01/18 16:32; Admin Dose 5 ML; Start 07/29/18 at 20:30 Diltiazem HCl 125 ml @ 5 mls/hr TITRATE IV Last administered on 07/30/18 09:40; Admin Dose 5 MLS/HR; Start 07/30/18 at 09:00; Status Hold Dronedarone (Multaq) 400 mg BID WITH MEALS PO Last administered on 08/11/18 07 :51; Admin Dose 400 MG; Start 07/30/18 at 09:30 Propofol 100 ml @ 1.986 mls/ hr Q12H IV Last administered on 08/05/18 06:36; Admin Dose 11.916 MLS/HR; Start 08/02/18 at 10:00 Albuterol (Ventolin Hfa) 4 puff Q6H RESP THERAPY INH Last administered on 08/11/18 14:47; Admin Dose 4 PUFF; Start 08/02/18 at 14:00 Ipratropium [place] (Atrovent Hfa) 4 puff Q6H RESP THERAPY INH Last administered on 08/11/18 14:47; Admin Dose 4 PUFF; Start 08/02/18 at 14:00 Fluconazole/ Sodium Chloride 50 ml @ 50 mls/hr Q24H IVPB Last administered on 08/10/18 18:34; Admin Dose 50 MLS/HR; Start 08/02/18 at 17:00 Acetaminophen (Tylenol Liquid) 650 mg Q6H PRN GTB MILD PAIN (1-3) OR TEMPERATURE Last administered on 08/10/18 21:28; Admin Dose 650 MG; Start 08/03/18 at 09:30 Docusate Sodium (Colace Liquid Cup) 100 mg BID PRN GTB CONSTIPATION,,,,; Start 08/03/18 at 09:30 IV Flush (NS 10 ml) 10 ml PRN PRN IV IV PROTOCOL; Start 08/03/18 at 10:30 Fentanyl 100 ml @ 2.5 mls/hr TITRATE IV Last administered on 08/11/18 09:34; Admin Dose 3 MLS/HR; Start 08/04/18 at 09:00 Lansoprazole (Prevacid) 30 mg DAILY@06 GTB Last administered on 08/11/18at 05:50; Admin Dose 30 MG; Start 08/05/18 at 06:00 Midazolam HCl 50 ml @ 1 mls/hr TITRATE IV Last administered on 08/10/18at 10:46; Admin Dose 7 MLS/HR; Start 08/05/18 at 12:00 Norepinephrine 250 ml @ 1.875 mls/ hr TITRATE IV Last administered on 08/05/18at 13:00; Admin Dose 30 MLS/HR; Start 08/05/18 at 13:00 Phenylephrine HCl 80 mg/Dextrose 250 ml @ 18.75 mls/ hr TITRATE IV Last administered on 08/09/18 01:42; Admin Dose 6.56 MLS/HR; Start 08/06/18 at 15:30 Levofloxacin/ Dextrose 50 ml @ 50 mls/hr DAILY IVPB Last administered on 08/11/18 07:57; Admin Dose 50 MLS/HR; Start 08/08/18 at 09:00 Vancomycin/Sodium Chloride 250 ml @ 125 mls/hr Q72H IVPB Last administered on 08/11/18 11:12; Admin Dose 125 MLS/HR; Start 08/11/18 at 11:00 Allergies: Coded Allergies: Penicillins (Verified Allergy, Unknown, SWELLING, 09/03/07) Tetracyclines (Verified Allergy, Unknown, 08/10/16) acetaminophen (Unverified Allergy, Unknown, 07/11/14) RE-ENTERED UNCODED ALLERGY CODED hydrocodone (Unverified Allergy, Unknown, 07/11/14) RE-ENTERED UNCODED ALLERGY CODED morphine (Verified Allergy, Unknown, 08/10/16) oxycodone (Unverified Allergy, Unknown, 07/11/14) RE-ENTERED UNCODED ALLERGY CODED zolpidem (Verified Allergy, Unknown, SWELLING, 09/03/07) Past Surgical History reviewed Social History reviewed Smoking Status: Former smoker CONNER NUÑEZ NP Aug 11, 2018 15:01 USAMA BURNS Aug 11, 2018 19:36
[2018-08-11] MEDS ORDERED: ASPIRIN 81 MG TAB NGT SCH (15:30)
[2018-08-11] MEDS: FLUCONAZOLE 100 MG/50 ML (PMX) 50 ML IVPB SCH (17:38)
[2018-08-11] MEDS: MIDAZOLAM (DRIP) 50 mg/50 mL 50 ML IV SCH (17:38)
--- NOTE | 2018-08-11 17:51 | PN ---
DATE: 08/11/2018 ADDENDUM: I met with the patient's daughters and I also spoke with the patient's son regarding patient's condition and goals of care. The patient remains on full ventilator support and had no gag reflex as well as no cough reflex. An EEG has been ordered. A neuro consult from Dr. Fabi Barnes has also been obtained. CT scan of the head is pending. The patient is not a candidate for extubation at this time. Code status, tracheostomy, G-tube versus only comfort care were discussed with them. For now, they have requested that we continue to provide aggressive treatment until there is more clarification on her mental status.I explained them that work up for altered mental status is underway. If patient improves & is able to interact & follow simple commands, they would like to pursue aggressive treatment even if she needs hemodialysis.I explained them that her mental status improvement will depend on etiology. A total of approximately 30 minutes was spent on goals of care discussion with the family. Dictated By: ABDIAS HENRY/MARLENY Conf#: [id number] DID#: [id number] CC: BART FIORE MD;*EndCC* MTDD
--- NOTE | 2018-08-11 19:39 | EEG ---
EEG NOTE Report Details DATE OF TEST: 08/11/18 HISTORY: The patient is a 73-year-old F who presents with altered mental status. This EEG is requested to rule out nonconvulsive status epilepticus. SEDATION: None. CONDITIONS OF RECORDING: This EEG was recorded digitally on the [employer] machine, using the International 10-20 System of electrodes plus anterior temporals and [place]. STATES SAMPLED: Comatose. FINDINGS: The background is discontinuous; grossly symmetric...predominated by polymorphic theta and delta activity. The normal [id number] frequency-amplitude gradient was absent. Photic stimulation does not elicit any definite driving responses or epileptiform discharges. Hyperventilation was not performed. No epileptiform discharges were seen. IMPRESSION: Abnormal electroencephalogram due to: severe diffuse slowing. COMMENT: The slowing of the background indicates severe, diffuse cortical dysfunction of nonspecific etiology. USAMA BURNS Aug 11, 2018 19:39
[2018-08-12] VITALS (29 sets, daily range): BP systolic 111–165; BP diastolic 38–58; PULSE 81–123; RESP 12–27
[2018-08-12] MEDS: ALBUTEROL HFA 8 GM INHALER INH SCH ×4 (01:58→19:47)
[2018-08-12] MEDS: IPRATROPIUM (HFA) 12.9 GM INHALER INH SCH ×4 (01:58→19:47)
[2018-08-12] MEDS: LANSOPRAZOLE 30 MG CAP GTB SCH (06:05)
--- NOTE | 2018-08-12 07:52 | CONS ---
Consult Date/Type/Reason Admit Date/Time Jul 28, 2018 at 18:16 Initial Consult Date 07/28/18 Type of Consultation: cv Requesting Provider: ABDIAS STAPLES MD Date/Time of Note DATE: 08/12/18 TIME: 07:46 Subjective Cardiology follow-up progress note Subjective: Discussed with the staff telemetry was reviewed. Patient has converted back to NSR now Patient REMAINS INTUBATED on vent in ICU. Patient is lethargic and unresponsive Objective: General: Elderly female INTUBATED on vent . HEENT: NC/AT. pupils are equal. round. NECK: + JVD. no stridor. CV RRR now systolic murmur; no gallop or rubs. PULM: no wheezing + rhonchi. GI: SOFT, NT, ND, no rebound or guarding Extremity: + LE edema. no clubbing. neuro: Unresponsive Psych: calm rectal: deferred : Deferred EKG was personally within normal sinus rhythm with no evidence of ischemia CT pulmonary angiogram done in the emergency room shows: 1. Moderate pulmonary fibrosis, worse at the bilateral lung apices. Associated mediastinal adenopathy. Underlying mass not entirely excluded. Further evaluation with PET-CT may be obtained. 2. Small right multiloculated pleural effusion. Moderate left layering pleural effusion. 3. Streaky bibasilar opacities compatible with atelectasis or pneumonia. 4. Dilated pulmonary trunk and bilateral pulmonary arteries compatible with sequelae of pulmonary hypertension. 5. Left renal 4 cm hyperdense cyst or mass. Further evaluation with multiphase contrast enhanced CT or MR may be obtained. Echocardiogram was personally reviewed which shows: Normal left ventricular systolic function. Normal left ventricular cavity size. Mild concentric left ventricular hypertrophy. Ejection fraction is visually estimated at 55 %. There is mild enlargement of left atrium. Normal appearance of the mitral valve. Mild mitral valve regurgitation. Aortic sclerosis without significant stenosis. Aortic cusps appear mildly calcified. Trileaflet aortic valve. Trace aortic valve regurgitation. Normal appearance of the tricuspid valve. Estimated peak PA systolic pressure 71 mmHg. There is mild tricuspid regurgitation. Normal size and normal respiratory collapse consistent with normal right atrial pressure. CXR 08/05 Again seen are diffuse coarse interstitial infiltrates with superimposed ground-glass densities, slightly more confluent within the perihilar regions and right lower lobe. The osseous structures are unremarkable. Chest x-ray August 06, 2018 shows: Stable patchy infiltrates throughout both lungs with potential small pleural effusions. Stable diffuse mild interstitial prominence in both lungs. Interstitial prominence could be chronic. CT HEAD 08/11/18 FINDINGS: There are numerous supratentorial and infratentorial non-hemorrhagic subacute appearing infarcts or additional infarcts involving the left thalamus are present. There is a right frontal infarct with marginal hyperdensity suggesting a component of petechial hemorrhage. There is generalize effacement of the involve sulci greatest involving the left parietal lobe. There is no left basal ganglia lacunar infarct redemonstrated. There is 1.3 mm of [id number] midline shift. There is otherwise age appropriate central and peripheral atrophy. There is a moderate degree of supratentorial periventricular and subcortical white matter hypodensities. There is no other intracranial hemorrhage or abnormal extra-axial fluid collection. Visualized paranasal sinuses are clear. IMPRESSION: 1. This is of supratentorial and infratentorial subacute appearing infarcts, largest in the confluent posterior left temporal and parietal lobe with mass effect on the left lateral ventricle. Small amount of probable petechial hemorrh age is associated with a right frontal infarct. 2. Minimal 1.3 mm [id number] midline shift. 3. Nonspecific white matter changes most commonly seen with microvascular ischemic disease. Objective Vitals Vital Signs Date Temp Pulse Resp B/P (MAP) Pulse Ox O2 O2 Flow FiO2 Time Delivery Rate 08/12/18 90 21 133/38 97 Mechanical 06:00 (69) Ventilator 08/12/18 50 05:00 08/12/18 98.0 04:00 Intake and Output 08/11/18 08/11/18 08/12/18 1515:00 23:00 07:00 IntakeIntake Total 976 ml 748 ml 696 ml OutputOutput Total 735 ml 850 ml 750 ml BalanceBalance 241 ml -102 ml -54 ml Results/Medications Result Diagram: 08/12/18 0400 08/12/18 0400 Results 24 hrs Laboratory Tests Test 08/11/18 15:35 08/12/18 04:00 Ammonia < 9 L Vitamin B12 Level 505 White Blood Count 16.7 #H Red Blood Count 2.50 L Hemoglobin 7.9 L Hematocrit 24.9 L Mean Corpuscular Volume 99.6 Mean Corpuscular Hemoglobin 31.6 Mean Corpuscular Hemoglobin Concent 31.7 L Red Cell Distribution Width 19.2 H Platelet Count 41 L Mean Platelet Volume 12.8 H Immature Granulocytes % 2.400 H Neutrophils % 81.4 H Lymphocytes % 10.0 L Monocytes % 2.6 Eosinophils % 3.5 Basophils % 0.1 Nucleated Red Blood Cells % 0.3 H Immature Granulocytes # 0.400 H Neutrophils # 13.6 H Lymphocytes # 1.7 Monocytes # 0.4 Eosinophils # 0.6 H Basophils # 0.0 Nucleated Red Blood Cells # 0.1 H Sodium Level 139 Potassium Level 4.7 Chloride Level 107 Carbon Dioxide Level 24 Anion Gap 8 Blood Urea Nitrogen 107 H Creatinine 1.68 H Est Glomerular Filtrat Rate mL/min Glucose Level 100 Calcium Level 8.6 Phosphorus Level 4.4 Magnesium Level 2.5 Digoxin Level < 0.4 L Home Meds Reported Medications Ondansetron Hcl* (Zofran*) 8 Mg Tablet, 8 MG PO Q6H PRN for NAUSEA AND OR VOMITING, TAB 07/28/18 Guaifenesin (Xpect) 400 Mg Tablet, 400 MG PO Q12, TAB 07/28/18 Acetaminophen* (Acetaminophen*) 650 Mg Tablet, 650 MG PO Q6H PRN for PAIN AND OR ELEVATED TEMP, #30 TAB 07/28/18 Trazodone Hcl* (Trazodone Hcl*) 50 Mg Tablet, 50 MG PO QHS, #30 TAB 07/28/18 Carisoprodol* (Carisoprodol*) 350 Mg Tablet, 350 MG PO BID PRN for MUSCLE SPASMS, TAB 07/28/18 Montelukast Sodium* (Singulair*) 10 Mg Tablet, 10 MG PO QHS, #30 TAB 07/28/18 Sennosides* (Senna Lax*) 8.6 Mg Tablet, 2 TAB PO QHS, TAB 07/28/18 Fluoxetine Hcl* (Prozac*) 20 Mg Capsule, 20 MG PO DAILY, CAP 07/28/18 Promethazine Hcl* (Phenergan* Liq) 6.25 Mg/5 Ml Syrup, 12.5 MG PO Q6H PRN for COUGH, ML 07/28/18 Lansoprazole* (Lansoprazole*) 30 Mg Capsule.dr, 30 MG PO DAILY, CAP 07/28/18 Vit C/E/Zn/Coppr/Lutein/Zeaxan (Preservision Areds 2 Softgel) 1 Each Capsule, 2 EACH PO DAILY, CAP 07/28/18 Prednisone* (Prednisone*) 20 Mg Tab, 40 MG PO DAILY, TAB 07/28/18 Chlorhexidine Gluconate (Peridex) 473 Ml Mouthwash, 15 ML MM BID, BOTTLE 07/28/18 [place]-3 Acid Ethyl Esters (Lovaza) 1 Gm Capsule, 2 GM PO DAILY, CAP 07/28/18 Hydrocodone/Acetaminophen ([place] 10-325 Tablet) 1 Each Tablet, 1 EACH PO Q4 PRN for SEVERE PAIN LEVEL 7-10, TAB 07/28/18 Multivitamins* (Theragran*) 1 Tab Tab, 1 TAB PO DAILY, TAB 07/28/18 Guaifenesin (Guaifenesin) 600 Mg Tablet.sa, 600 MG PO BID, TAB 07/28/18 Magnesium Hydroxide* (Milk Of Magnesia*) 400 Mg/5 Ml Oral.susp, 30 ML PO DAILY PRN for CHEST PAIN, ML 07/28/18 Metoprolol Tartrate* (Lopressor*) 50 Mg Tab, 50 MG PO DAILY, #60 TAB HOLD FOR SBP<110 OR HR<60 07/28/18 Atorvastatin Calcium (Atorvastatin Calcium) 10 Mg Tablet, 10 MG PO QHS, #30 TAB 07/28/18 Lidocaine (Lidocaine) 5 Gm Cream..g., 5 GM TP DAILY 07/28/18 Furosemide* (Lasix*) 20 Mg Tablet, 20 MG PO DAILY, TAB 07/28/18 Lactobacillus Rhamnosus* (Culturelle*) 1 Each Cap.sprink, 1 CAP PO DAILY, CAP 07/28/18 Ipratropium-Albuterol (Ipratropium-Albuterol) 0.5-3 Mg/3 Ml Ampul.neb, 3 ML INHALATION Q4 PRN for SHORTNESS OF BREATH, #30 VIAL 07/28/18 Gabapentin* (Gabapentin*) 100 Mg Capsule, 200 MG PO BID, #180 CAP 07/28/18 Folic Acid* (Folic Acid*) 1 Mg Tablet, 1 MG PO DAILY, TAB 07/28/18 Ferrous Sulfate* (Ferrous Sulfate*) 325 Mg Tabec, 325 MG PO TID, TAB 07/28/18 Estrogens Conjugated* (Premarin*) 0.45 Mg Tablet, 0.45 MG PO DAILY, TAB 07/28/18 Bisacodyl (Dulcolax) 10 Mg Supp.rect, 10 MG RC Q48, SUPP.RECT 07/28/18 Docusate Sodium* (Colace*) 100 Mg Capsule, 100 MG PO QHS PRN for CONSTIPATION, #60 CAP 07/28/18 Hydromorphone Hcl* (Dilaudid*) 2 Mg Tablet, 2 MG PO Q6H PRN for SEVERE PAIN LEVEL 7-10, TAB 07/28/18 Cyanocobalamin* (Vitamin B12*) 500 Mcg Tab, 500 MCG PO DAILY, TAB 07/28/18 Clonidine Hcl* (Clonidine Hcl*) 0.1 Mg Tab, 0.1 MG PO Q8, TAB 07/28/18 Clonazepam* (Clonazepam*) 0.5 Mg Tablet, 0.5 MG PO BID PRN for ANXIETY, TAB 07/28/18 Calcium Carbonate/Vitamin D3 ([place] 500+D Tablet) 1 Each Tablet, 1 EACH PO BID, TAB 07/28/18 Fluticasone/Vilanterol (Breo Ellipta 200-25 Mcg INH) 1 Each Blst.w.dev, 1 PUFF INHALATION DAILY, #1 INHALER 07/28/18 Lorazepam* (Lorazepam*) 0.5 Mg Tablet, 0.5 MG PO Q6 PRN for ANXIETY, TAB 07/28/18 Diphenhydramine Hcl* (Benadryl*) 25 Mg Cap, 25 MG PO Q8 PRN for PRN, CAP 07/28/18 Aspirin* (Aspirin* Chew) 81 Mg Tab.chew, 81 MG PO DAILY, TAB.CHEW 07/28/18 Ascorbic Acid* (Vitamin C*) 500 Mg Capsule.sa, 500 MG PO TID, CAP 07/28/18 Apixaban* (Eliquis*) 5 Mg Tablet, 5 MG PO BID, TAB 07/28/18 Hydrocortisone Acetate (Anusol-Hc) 25 Mg Supp.rect, 25 MG MN BID PRN for CONSTIPATION, SUPP.RECT 07/28/18 Amiodarone Hcl* (Amiodarone Hcl*) 200 Mg Tablet, 200 MG PO BID, #30 TAB HOLD FOR SBP<110 OR HR<60 1/22/19 Medications Current Medications Vancomycin HCl (Vanco Iv Per Pharmacy) VANCOMYCIN PER PHARMACY PER PROTOCOL XX ; Start 07/28/18 at 17:30 Albuterol/ Ipratropium (Duoneb) 3 ml Q6H RESP THERAPY HHN Last administered on 08/02/18 01:07; Admin Dose 3 ML; Start 07/28/18 at 20:00; Status Hold Calcium/Vitamin D (Oyster [place]/ Vit-D (500/200)) 1 tab BID PO Last administered on 08/11/18 21:12; Admin Dose 1 TAB; Start 07/28/18 at 21:00 Clonazepam (Klonopin) 0.5 mg BID PRN PO ANXIETY Last administered on 08/04/18 21:00; Admin Dose 0.5 MG; Start 07/28/18 at 21:00 Clonidine (Catapres) 0.1 mg TID PRN PO ELEVATED BLOOD PRESSURE Last administered on 08/11/18 18:25; Admin Dose 0.1 MG; Start 07/28/18 at 21:00 Hydromorphone HCl (Dilaudid) 2 mg Q4H PRN PO SEVERE PAIN LEVEL 7-10 Last administered on 08/01/18 23:34; Admin Dose 2 MG; Start 07/28/18 at 21:00 Docusate Sodium (Colace) 100 mg BID PRN PO CONSTIPATION; Start 07/28/18 at 21:00 Gabapentin (Neurontin) 200 mg BID PO Last administered on 08/11/18 21:12; Admin Dose 200 MG; Start 07/28/18 at 21:00 Magnesium Hydroxide (Milk Of Mag) 30 ml DAILY PRN PO CONSTIPATION; Start 07/28/18 at 21:00 Acetaminophen/ Hydrocodone Bitart ([place] (10/325)) 1 tab Q4H PRN PO MODERATE PAIN LEVEL 4-6 Last administered on 08/01/18 21:02; Admin Dose 1 TAB; Start at 21:00 Carisoprodol (Soma) 350 mg BID PRN PO MUSCLE SPASMS; Start 07/28/18 at 21:00 Trazodone HCl (Desyrel) 50 mg HS PRN PO INSOMNIA Last administered on 07/29/18 20:29; Admin Dose 50 MG; Start 07/28/18 at 21:00 Ondansetron HCl (Zofran Inj) 4 mg Q6H PRN IV NAUSEA AND/OR VOMITING; Start 07/28/18 at 21:00 Methylprednisolone Sodium Succinate (Solu-Medrol) 40 mg DAILY IV Last administered on 08/11/18 07:57; Admin Dose 40 MG; Start 07/29/18 at 09:00 Ascorbic Acid (Vitamin C) 500 mg TID PO Last administered on 08/11/18 21:12; Admin Dose 500 MG; Start 07/29/18 at 09:00 Lorazepam (Ativan) 0.5 mg Q6H PRN PO ANXIETY Last administered on 08/10/18 21:28; Admin Dose 0.5 MG; Start 07/29/18 at 20:30 Guaifenesin/ Dextromethorphan (Robitussin Dm Liquid Cup) 5 ml Q4H PRN PO COUGH Last administered on 08/01/18 16:32; Admin Dose 5 ML; Start 07/29/18 at 20:30 Diltiazem HCl 125 ml @ 5 mls/hr TITRATE IV Last administered on 07/30/18 09:40; Admin Dose 5 MLS/HR; Start 07/30/18 at 09:00; Status Hold Dronedarone (Multaq) 400 mg BID WITH MEALS PO Last administered on 08/11/18 19:04; Admin Dose 400 MG; Start 07/30/18 at 09:30 Propofol 100 ml @ 1.986 mls/ hr Q12H IV Last administered on 08/05/18 06:36; Admin Dose 11.916 MLS/HR; Start 08/02/18 at 10:00 Albuterol (Ventolin Hfa) 4 puff Q6H RESP THERAPY INH Last administered on 08/12/18 01:58; Admin Dose 4 PUFF; Start 08/02/18 at 14:00 Ipratropium [place] (Atrovent Hfa) 4 puff Q6H RESP THERAPY INH Last administered on 08/12/18 01:58; Admin Dose 4 PUFF; Start 08/02/18 at 14:00 Fluconazole/ Sodium Chloride 50 ml @ 50 mls/hr Q24H IVPB Last administered on 08/11/18 17:38; Admin Dose 50 MLS/HR; Start 08/02/18 at 17:00 Acetaminophen (Tylenol Liquid) 650 mg Q6H PRN GTB MILD PAIN (1-3) OR TEMPERATURE Last administered on 08/10/18 21:28; Admin Dose 650 MG; Start 08/03/18 at 09:30 Docusate Sodium (Colace Liquid Cup) 100 mg BID PRN GTB CONSTIPATION,,,,; Start 08/03/18 at 09:30 IV Flush (NS 10 ml) 10 ml PRN PRN IV IV PROTOCOL; Start 08/03/18 at 10:30 Fentanyl 100 ml @ 2.5 mls/hr TITRATE IV Last administered on 08/11/18at 09:34; Admin Dose 3 MLS/HR; Start 08/04/18 at 09:00 Lansoprazole (Prevacid) 30 mg DAILY@06 GTB Last administered on 08/12/18 06:05; Admin Dose 30 MG; Start 08/05/18 at 06:00 Midazolam HCl 50 ml @ 1 mls/hr TITRATE IV Last administered on 08/11/18at 17:38; Admin Dose 3 MLS/HR; Start 08/05/18 at 12:00 Norepinephrine 250 ml @ 1.875 mls/ hr TITRATE IV Last administered on 08/05/18at 13:00; Admin Dose 30 MLS/HR; Start 08/05/18 at 13:00 Phenylephrine HCl 80 mg/Dextrose 250 ml @ 18.75 mls/ hr TITRATE IV Last administered on 08/09/18 01:42; Admin Dose 6.56 MLS/HR; Start 08/06/18 at 15:30 Levofloxacin/ Dextrose 50 ml @ 50 mls/hr DAILY IVPB Last administered on 08/11/18 07:57; Admin Dose 50 MLS/HR; Start 08/08/18 at 09:00 Vancomycin/Sodium Chloride 250 ml @ 125 mls/hr Q72H IVPB Last administered on 08/11/18 11:12; Admin Dose 125 MLS/HR; Start 08/11/18 at 11:00 Assessment/Plan Hospital Course (Demo Recall) 1. Hypoxemic respiratory failure: Status post intubation on the vent now 2. Pulmonary fibrosis/severe COPD 3. Elevated BNP most likely secondary to above and significant pulmonary hypertension 4. paroxysmal atrial fibrillation; currently converted back to normal sinus rhythm 5. Encephalopathy, CVA: probably embolic 6. pneumonia 7. History of recent fall and hip fracture status post surgery 8. Anemia and OB positive stool 9. Lactic acidosis 10. Hypertension 11. Pulmonary hypertension 12. shock. sepsis 13. Thrombocytopenia Recommendations: off the Eliquis given her OB positive stool as well as thrombocytopenia and worsening anemia and hemoptysis . now with CVA on CT with evidence of petechial bleed as well . will try to allow for permissive HTN. as tolerated Continue with vent support. Antibiotic management as per internal medicine We will continue to monitor on telemetry Correct electrolytes as needed Transfusions as needed off the amiodarone given concern about her severe pulmonary disease and pulmonary fibrosis. cont Multaq . TSH is within normal limits f/u with Neurology consultation . Thank you for his referral. We will continue to follow along with you DAYRON ROGERS MD [facility] DAYRON ROGERS MD Aug 12, 2018 07:52
[2018-08-12] MEDS: METHYLPREDNISOLONE 40 MG INJ IV SCH (08:13)
[2018-08-12] MEDS: ACETAMINOPHEN 650MG/20.3ML CUP GTB PRN (08:13)
[2018-08-12] MEDS: CALCIUM/VITAMIN D (500/200) TAB PO SCH ×2 (08:14→21:01)
[2018-08-12] MEDS: GABAPENTIN 100 MG CAP PO SCH ×2 (08:14→21:01)
[2018-08-12] MEDS: DRONEDARONE HYDROCHLORIDE 400 MG TAB PO SCH ×2 (08:14→16:59)
[2018-08-12] MEDS: ASCORBIC ACID 500 MG TAB PO SCH ×3 (08:14→21:01)
[2018-08-12] MEDS: LEVOFLOXACIN 250MG/D5W (PMX) 50 ML IVPB SCH (08:17)
[2018-08-12] MEDS: FUROSEMIDE 40 MG INJ IV SCH ×2 (08:26→17:50)
--- NOTE | 2018-08-12 08:37 | PN ---
DATE: 08/12/2018 SUBJECTIVE: The patient had CT scan yesterday which showed evidence of multiple infarcts. No other events noted. No hemoptysis, hematemesis, hematochezia. OBJECTIVE: VITAL SIGNS: Blood pressure is 133/38, respirations 21, pulse 90, temperature 98.0. I's and O's hav e been reviewed. HEENT: Head is normocephalic. NECK: Supple. HEART: Regular rate. LUNGS: Show diminished breath sounds at the base. ABDOMEN: Soft, nontender to palpation without rebound or guarding. EXTREMITIES: Negative for clubbing, cyanosis. Positive edema. DERMATOLOGIC: No rashes. MUSCULOSKELETAL: No joint effusions. NEUROLOGIC: No change in exam. MEDICATIONS: Reviewed. LABORATORY DATA: Shows sodium 139, potassium 4.7, chloride 107, BUN 107, creatinine 1.68. White cou nt 16.7, hemoglobin 7.9, platelet count is 41. IMAGING STUDIES: Reviewed. ASSESSMENT AND PLAN: 1. Nonoliguric kidney injury with unknown baseline creatinine. Etiology of acute kidney injury is s econdary to acute tubular necrosis due to sepsis, hemodynamics. The patient appears to be in mainten ance phase of ATN as creatinine appears to have stabilized. The patient does have a significant azot emia which is multifactorial secondary to acute kidney injury, hypercatabolic state, steroids and lik mo diuretic therapy. At this point, would continue on diuretic therapy. The patient has excellent urinary output. There is no immediate need for renal placement therapy. We will continue to monitor closely. 2. Hyperkalemia secondary to acute kidney injury, improved. Continue low-potassium diet. Continue diuretic therapy. 3. Anemia. Monitor hemoglobin and hematocrit levels. 4. Mineral bone disorder. Monitor calcium and phosphorus levels. 5. Mixed acid base disorder. The patient's ABG was reviewed. Continue to monitor. 6. Hypernatremia, improving. Continue free water flushes. 7. Volume overload secondary to diastolic heart failure, sepsis. Continue diuretic therapy, monitor electrolytes, renal function closely. 8. Sepsis, status post shock. Continue current antibiotic regimen. 9. Acute cerebrovascular accident. CT scan was reviewed, showed multiple infarcts. Continue to mon itor. Follow up with neurology. 10. Ventilator-dependent respiratory failure. Vent settings and ABG was reviewed. Continue to kyra tor. 11. History of peripheral vascular disease. 12. Status post hip arthroplasty. Please note I spent over 30 minutes of critical care time with this patient. Dictated By: GENEVIEVE MENJIVAR DO NR/NTS Conf#: [id number] DID#: [id number] CC: ABDIAS STAPLES MD;*EndCC*
--- NOTE | 2018-08-12 09:05 | CONS ---
Consult Date/Type/Reason Admit Date/Time Jul 28, 2018 at 18:16 Initial Consult Date 07/28/18 Type of Consult Pulmonary Requesting Provider: ABDIAS STAPLES MD Date/Time of Note DATE: 08/12/18 TIME: 09:03 Subjective Remains somnolent on mechanical ventilation agonal respiration. Initial CT report suggests acute infarcts. Objective Vital Signs Date Temp Pulse Resp B/P (MAP) Pulse Ox O2 O2 Flow FiO2 Time Delivery Rate 08/12/18 101.7 08:13 08/12/18 90 21 133/38 97 [place] 06:00 (69) l Ventilato r 08/12/18 50 05:00 Intake and Output 08/11/18 08/11/18 08/12/18 1515:00 23:00 07:00 IntakeIntake Total 976 ml 748 ml 696 ml OutputOutput Total 735 ml 850 ml 750 ml BalanceBalance 241 ml -102 ml -54 ml Exam PHYSICAL EXAMINATION GENERAL: Frail elderly lady orally intubated. VITAL SIGNS: see below. HEENT: Pupils equal, round, and reactive to light. CARDIAC: S1, S2, 1/6 systolic ejection murmur CHEST: Diminished air entry bilaterally. ABDOMEN: Mildly distended. Bowel sounds present no guarding or rebound EXTREMITIES: No cyanosis, clubbing edema +1 NEUROLOGIC: Generalized weakness, unable to assess Vent Setting Ventilator Support Mode: AC Fraction of Inspired Oxygen pe: 50 Positive End Expiratory Pressu: 10.0 Results/Medications Result Diagram: 08/12/18 0400 08/12/18 0400 Results 24 hrs Laboratory Tests Test 08/11/18 15:35 08/12/18 04:00 Ammonia < 9 L Vitamin B12 Level 505 White Blood Count 16.7 #H Red Blood Count 2.50 L Hemoglobin 7.9 L Hematocrit 24.9 L Mean Corpuscular Volume 99.6 Mean Corpuscular Hemoglobin 31.6 Mean Corpuscular Hemoglobin Concent 31.7 L Red Cell Distribution Width 19.2 H Platelet Count 41 L Mean Platelet Volume 12.8 H Immature Granulocytes % 2.400 H Neutrophils % 81.4 H Lymphocytes % 10.0 L Monocytes % 2.6 Eosinophils % 3.5 Basophils % 0.1 Nucleated Red Blood Cells % 0.3 H Immature Granulocytes # 0.400 H Neutrophils # 13.6 H Lymphocytes # 1.7 Monocytes # 0.4 Eosinophils # 0.6 H Basophils # 0.0 Nucleated Red Blood Cells # 0.1 H Sodium Level 139 Potassium Level 4.7 Chloride Level 107 Carbon Dioxide Level 24 Anion Gap 8 Blood Urea Nitrogen 107 H Creatinine 1.68 H Est Glomerular Filtrat Rate mL/min Glucose Level 100 Calcium Level 8.6 Phosphorus Level 4.4 Magnesium Level 2.5 Digoxin Level < 0.4 L Medications Current Medications Vancomycin HCl (Vanco Iv Per Pharmacy) VANCOMYCIN PER PHARMACY PER PROTOCOL XX ; Start 07/28/18 at 17:30 Albuterol/ Ipratropium (Duoneb) 3 ml Q6H RESP THERAPY HHN Last administered on 08/02/18 01:07; Admin Dose 3 ML; Start 07/28/18 at 20:00; Status Hold Calcium/Vitamin D (Oyster Shell/ Vit-D (500/200)) 1 tab BID PO Last administered on 08/12/18 08:14; Admin Dose 1 TAB; Start 07/28/18 at 21:00 Clonazepam (Klonopin) 0.5 mg BID PRN PO ANXIETY Last administered on 08/04/18 21:00; Admin Dose 0.5 MG; Start 07/28/18 at 21:00 Clonidine (Catapres) 0.1 mg TID PRN PO ELEVATED BLOOD PRESSURE Last administered on 08/11/18 18:25; Admin Dose 0.1 MG; Start 07/28/18 at 21:00 Hydromorphone HCl (Dilaudid) 2 mg Q4H PRN PO SEVERE PAIN LEVEL 7-10 Last administered on 08/01/18 23:34; Admin Dose 2 MG; Start 07/28/18 at 21:00 Docusate Sodium (Colace) 100 mg BID PRN PO CONSTIPATION; Start 07/28/18 at 21:00 Gabapentin (Neurontin) 200 mg BID PO Last administered on 08/12/18 08:14; Admin Dose 200 MG; Start 07/28/18 at 21:00 Magnesium Hydroxide (Milk Of Mag) 30 ml DAILY PRN PO CONSTIPATION; Start 07/28/18 at 21:00 Acetaminophen/ Hydrocodone Bitart ([place] (10/325)) 1 tab Q4H PRN PO MODERATE PAIN LEVEL 4-6 Last administered on 08/01/18 21:02; Admin Dose 1 TAB; Start 07/28/18 at 21:00 Carisoprodol (Soma) 350 mg BID PRN PO MUSCLE SPASMS; Start 07/28/18 at 21:00 Trazodone HCl (Desyrel) 50 mg HS PRN PO INSOMNIA Last administered on 07/29/18 20:29; Admin Dose 50 MG; Start 07/28/18 at 21:00 Ondansetron HCl (Zofran Inj) 4 mg Q6H PRN IV NAUSEA AND/OR VOMITING; Start 07/28/18 at 21:00 Methylprednisolone Sodium Succinate (Solu-Medrol) 40 mg DAILY IV Last administered on 08/12/18 08:13; Admin Dose 40 MG; Start 07/29/18 at 09:00 Ascorbic Acid (Vitamin C) 500 mg TID PO Last administered on 08/12/18 08:14; Admin Dose 500 MG; Start 07/29/18 at 09:00 Lorazepam (Ativan) 0.5 mg Q6H PRN PO ANXIETY Last administered on 08/10/18 21:28; Admin Dose 0.5 MG; Start 07/29/18 at 20:30 Guaifenesin/ Dextromethorphan (Robitussin Dm Liquid Cup) 5 ml Q4H PRN PO COUGH Last administered on 08/01/18 16:32; Admin Dose 5 ML; Start 07/29/18 at 20:30 Diltiazem HCl 125 ml @ 5 mls/hr TITRATE IV Last administered on 07/30/18 09:4 0; Admin Dose 5 MLS/HR; Start 07/30/18 at 09:00; Status Hold Dronedarone (Multaq) 400 mg BID WITH MEALS PO Last administered on 08/12/18 08:14; Admin Dose 400 MG; Start 07/30/18 at 09:30 Propofol 100 ml @ 1.986 mls/ hr Q12H IV Last administered on 08/05/18 06:36; Admin Dose 11.916 MLS/HR; Start 08/02/18 at 10:00 Albuterol (Ventolin Hfa) 4 puff Q6H RESP THERAPY INH Last administered on 08:56; Admin Dose 4 PUFF; Start 08/02/18 at 14:00 Ipratropium [place] (Atrovent Hfa) 4 puff Q6H RESP THERAPY INH Last administered on 08/12/18 08:56; Admin Dose 4 PUFF; Start 08/02/18 at 14:00 Fluconazole/ Sodium Chloride 50 ml @ 50 mls/hr Q24H IVPB Last administered on 08/11/18 17:38; Admin Dose 50 MLS/HR; Start 08/02/18 at 17:00 Acetaminophen (Tylenol Liquid) 650 mg Q6H PRN GTB MILD PAIN (1-3) OR TEMPERATURE Last administered on 08/12/18 08:13; Admin Dose 650 MG; Start 08/03/18 at 09:30 Docusate Sodium (Colace Liquid Cup) 100 mg BID PRN GTB CONSTIPATION,,,,; Start 08/03/18 at 09:30 IV Flush (NS 10 ml) 10 ml PRN PRN IV IV PROTOCOL; Start 08/03/18 at 10:30 Fentanyl 100 ml @ 2.5 mls/hr TITRATE IV Last administered on 08/11/18 09:34; Admin Dose 3 MLS/HR; Start 08/04/18 at 09:00 Lansoprazole (Prevacid) 30 mg DAILY@06 GTB Last administered on 08/12/18 06:05; Admin Dose 30 MG; Start 08/05/18 at 06:00 Midazolam HCl 50 ml @ 1 mls/hr TITRATE IV Last administered on 08/11/18 17:38; Admin Dose 3 MLS/HR; Start 08/05/18 at 12:00 Norepinephrine 250 ml @ 1.875 mls/ hr TITRATE IV Last administered on 08/05/18 13:00; Admin Dose 30 MLS/HR; Start 08/05/18 at 13:00 Phenylephrine HCl 80 mg/Dextrose 250 ml @ 18.75 mls/ hr TITRATE IV Last administered on 08/09/18 01:42; Admin Dose 6.56 MLS/HR; Start 08/06/18 at 15:30 Levofloxacin/ Dextrose 50 ml @ 50 mls/hr DAILY IVPB Last administered on 08/12/18 08:17; Admin Dose 50 MLS/HR; Start 08/08/18 at 09:00 Vancomycin/Sodium Chloride 250 ml @ 125 mls/hr Q72H IVPB Last administered on 2/5/19at 11:12; Admin Dose 125 MLS/HR; Start 08/11/18 at 11:00 Furosemide (Lasix) 40 mg BID DIURETICS IV Last administered on 08/12/18at 08:26; Admin Dose 40 MG; Start 08/12/18 at 08:00 Assessment/Plan Hospital Course (Demo Recall) Assessment 1. Acute CVA with encephalopathy 2. Acute on chronic hypoxemic respiratory failure with ongoing bilateral infiltrates 3. Renal insufficiency 4. Severe sepsis likely secondary to pneumonia 5. A. fib with RVR Plan 1. Continue supportive care 2. Palliative care evaluation and input his overall prognosis is extremely poor Critical care 40 minutes CARRINGTON LANDIN MD, [facility] Aug 12, 2018 09:05
[2018-08-12] MEDS: PROPOFOL 100 ML IV SCH ×2 (10:00→21:19)
--- NOTE | 2018-08-12 13:10 | PN ---
Date/Time of Note Date/Time of Note DATE: 08/12/18 TIME: 12:53 Assessment/Plan VTE Prophylaxis Risk score (from [facility])>0 risk: 14 SCD applied (from [facility]): No SCD contraindicated: other Pharmacological prophylaxis: NA/contraindicated Pharm contraindication: thrombocytopenia Lines/Catheters IV Catheter Type (from [facility]): PICC Line Central line still needed: Yes Urinary Cath still in place: Yes Reason Cath still needed: urinary retention Assessment/Plan Hospital Course Patient remains unresponsive, off sedation, continues on ventilatory support, agonal breathing, patient status post CT of the brain which revealed multiple infarcts. Assessment/Plan - Supratentorial and infratentorial subacute infarcts, with minimal 1.3 mm [id number] midline shift. EEG revealed abnormal EEG due to severe diffuse slowing, no epileptiform discharges were seen. Dr. Barnes is following in [place] urology consultation. - Acute hypoxemic respiratory failure due to healthcare-acquired pneumonia/ AR DS. Continue ventilatory support, steroids. from pulmonary standpoint. - Anemia of acute blood loss secondary to nosebleed admission, resolved. status post blood transfusion, continue to monitor hemoglobin and hematocrit. - Sepsis with gram-positive bacteremia. Continue antibiotics per ID. Dr. Brown is following in infection disease consultation. - Bilateral pulmonary fibrosis. Continue supplemental oxygen and symptomatic treatment with steroids. - Chronic obstructive pulmonary disease. Continue DuoNeb and steroids. - Nonobstructive coronary artery disease as per cardiac catheterization in 2012. Dr. Frost is following from cardiac standpoint. - Paroxysmal atrial fibrillation. Patient had an episode of atrial fibrillation with rapid ventricular response and was on Cardizem drip, currently in sinus rhythm. - Hypertension. Continue metoprolol and Lasix. p.r.n. clonidine. - Peripheral artery disease, status post stent. - Dyslipidemia. Continue Lipitor. - MARQUES, Dr. Salazar from nephrology standpoint. - Recent right hip fracture, status post surgery. - Pancreatic head mass. As per patient, she has been going to a specialist every year for followup. - Anxiety and depression. - Poor prognosis, Dr. Greenwood is following in palliative services consultation. Critical care time spent more than 30 minutes. Further recommendations based on clinical course. Plan of care discussed with Dr. Pack. Result Diagram: 08/12/18 0400 08/12/18 0400 Results 24hrs Laboratory Tests Test 08/11/18 15:35 08/12/18 04:00 Ammonia < 9 L Vitamin B12 Level 505 White Blood Count 16.7 #H Red Blood Count 2.50 L Hemoglobin 7.9 L Hematocrit 24.9 L Mean Corpuscular Volume 99.6 Mean Corpuscular Hemoglobin 31.6 Mean Corpuscular Hemoglobin Concent 31.7 L Red Cell Distribution Width 19.2 H Platelet Count 41 L Mean Platelet Volume 12.8 H Immature Granulocytes % 2.400 H Neutrophils % 81.4 H Lymphocytes % 10.0 L Monocytes % 2.6 Eosinophils % 3.5 Basophils % 0.1 Nucleated Red Blood Cells % 0.3 H Immature Granulocytes # 0.400 H Neutrophils # 13.6 H Lymphocytes # 1.7 Monocytes # 0.4 Eosinophils # 0.6 H Basophils # 0.0 Nucleated Red Blood Cells # 0.1 H Sodium Level 139 Potassium Level 4.7 Chloride Level 107 Carbon Dioxide Level 24 Anion Gap 8 Blood Urea Nitrogen 107 H Creatinine 1.68 H Est Glomerular Filtrat Rate mL/min Glucose Level 100 Calcium Level 8.6 Phosphorus Level 4.4 Magnesium Level 2.5 Digoxin Level < 0.4 L Exam/Review of Systems Exam Vitals Vital Signs Date Temp Pulse Resp B/P (MAP) Pulse Ox O2 O2 Flow FiO2 Time Delivery Rate 08/12/18 99.4 101 15 156/49 99 Mechanical 12:00 (84) Ventilator 08/12/18 40 12:00 Intake and Output 08/11/18 08/11/18 08/12/18 1515:00 23:00 07:00 IntakeIntake Total 976 ml 748 ml 724 ml OutputOutput Total 735 ml 850 ml 900 ml BalanceBalance 241 ml -102 ml -176 ml Exam Constitutional: frail, other (Orally intubated) ENMT: other (OGT) Neck: supple Respiratory: diminished breath sounds Gastrointestinal: soft, non-tender Extremities: normal pulses Neurological: other (non-responsive) Results Results 24hrs Laboratory Tests Test 08/11/18 15:35 08/12/18 04:00 Ammonia < 9 L Vitamin B12 Level 505 White Blood Count 16.7 #H Red Blood Count 2.50 L Hemoglobin 7.9 L Hematocrit 24.9 L Mean Corpuscular Volume 99.6 Mean Corpuscular Hemoglobin 31.6 Mean Corpuscular Hemoglobin Concent 31.7 L Red Cell Distribution Width 19.2 H Platelet Count 41 L Mean Platelet Volume 12.8 H Immature Granulocytes % 2.400 H Neutrophils % 81.4 H Lymphocytes % 10.0 L Monocytes % 2.6 Eosinophils % 3.5 Basophils % 0.1 Nucleated Red Blood Cells % 0.3 H Immature Granulocytes # 0.400 H Neutrophils # 13.6 H Lymphocytes # 1.7 Monocytes # 0.4 Eosinophils # 0.6 H Basophils # 0.0 Nucleated Red Blood Cells # 0.1 H Sodium Level 139 Potassium Level 4.7 Chloride Level 107 Carbon Dioxide Level 24 Anion Gap 8 Blood Urea Nitrogen 107 H Creatinine 1.68 H Est Glomerular Filtrat Rate mL/min Glucose Level 100 Calcium Level 8.6 Phosphorus Level 4.4 Magnesium Level 2.5 Digoxin Level < 0.4 L Medications Medication Current Medications Vancomycin HCl (Vanco Iv Per Pharmacy) VANCOMYCIN PER PHARMACY PER PROTOCOL XX ; Start 07/28/18 at 17:30 Albuterol/ Ipratropium (Duoneb) 3 ml Q6H RESP THERAPY HHN Last administered on 08/02/18 01:07; Admin Dose 3 ML; Start 07/28/18 at 20:00; Status Hold Calcium/Vitamin D ([place]yster [place]/ Vit-D (500/200)) 1 tab BID PO Last administered on 08/12/18 08:14; Admin Dose 1 TAB; Start 07/28/18 at 21:00 Clonazepam (Klonopin) 0.5 mg BID PRN PO ANXIETY Last administered on 08/04/18 21:00; Admin Dose 0.5 MG; Start 07/28/18 at 21:00 Clonidine (Catapres) 0.1 mg TID PRN PO ELEVATED BLOOD PRESSURE Last administered on 08/11/18 18:25; Admin Dose 0.1 MG; Start 07/28/18 at 21:00 Hydromorphone HCl (Dilaudid) 2 mg Q4H PRN PO SEVERE PAIN LEVEL 7-10 Last administered on 08/01/18 23:34; Admin Dose 2 MG; Start 07/28/18 at 21:00 Docusate Sodium (Colace) 100 mg BID PRN PO CONSTIPATION; Start 07/28/18 at 21:00 Gabapentin (Neurontin) 200 mg BID PO Last administered on 08/12/18 08:14; Admin Dose 200 MG; Start 07/28/18 at 21:00 Magnesium Hydroxide (Milk Of Mag) 30 ml DAILY PRN PO CONSTIPATION; Start 07/28/18 at 21:00 Acetaminophen/ Hydrocodone Bitart ([place] (10/325)) 1 tab Q4H PRN PO MODERATE PAIN LEVEL 4-6 Last administered on 08/01/18 21:02; Admin Dose 1 TAB; Start 07/28/18 at 21:00 Carisoprodol (Soma) 350 mg BID PRN PO MUSCLE SPASMS; Start 07/28/18 at 21:00 Trazodone HCl (Desyrel) 50 mg HS PRN PO INSOMNIA Last administered on 07/29/18 20:29; Admin Dose 50 MG; Start 07/28/18 at 21:00 Ondansetron HCl (Zofran Inj) 4 mg Q6H PRN IV NAUSEA AND/OR VOMITING; Start 07/28/18 at 21:00 Methylprednisolone Sodium Succinate (Solu-Medrol) 40 mg DAILY IV Last administered on 08/12/18 08:13; Admin Dose 40 MG; Start 07/29/18 at 09:00 Ascorbic Acid (Vitamin C) 500 mg TID PO Last administered on 08/12/18 08:14; Admin Dose 500 MG; Start 07/29/18 at 09:00 Lorazepam (Ativan) 0.5 mg Q6H PRN PO ANXIETY Last administered on 08/10/18 21:28; Admin Dose 0.5 MG; Start 07/29/18 at 20:30 Guaifenesin/ Dextromethorphan (Robitussin Dm Liquid Cup) 5 ml Q4H PRN PO COUGH Last administered on 08/01/18 16:32; Admin Dose 5 ML; Start 07/29/18 at 20:30 Diltiazem HCl 125 ml @ 5 mls/hr TITRATE IV Last administered on 07/30/18 09:40; Admin Dose 5 MLS/HR; Start 07/30/18 at 09:00; Status Hold Dronedarone (Multaq) 400 mg BID WITH MEALS PO Last administered on 08/12/18 08:14; Admin Dose 400 MG; Start 07/30/18 at 09:30 Propofol 100 ml @ 1.986 mls/ hr Q12H IV Last administered on 08/05/18 06:36; Admin Dose 11.916 MLS/HR; Start 08/02/18 at 10:00 Albuterol (Ventolin Hfa) 4 puff Q6H RESP THERAPY INH Last administered on 08/12/18 08:56; Admin Dose 4 PUFF; Start 08/02/18 at 14:00 Ipratropium [place] (Atrovent Hfa) 4 puff Q6H RESP THERAPY INH Last administered on 08/12/18 08:56; Admin Dose 4 PUFF; Start 08/02/18 at 14:00 Acetaminophen (Tylenol Liquid) 650 mg Q6H PRN GTB MILD PAIN (1-3) OR TEMPERATURE Last administered on 08/12/18 08:13; Admin Dose 650 MG; Start 08/03/18 at 09:30 Docusate Sodium (Colace Liquid Cup) 100 mg BID PRN GTB CONSTIPATION,,,,; Start 08/03/18 at 09:30 IV Flush (NS 10 ml) 10 ml PRN PRN IV IV PROTOCOL; Start 08/03/18 at 10:30 Fentanyl 100 ml @ 2.5 mls/hr TITRATE IV Last administered on 08/11/18 09:34; Admin Dose 3 MLS/HR; Start 08/04/18 at 09:00 Lansoprazole (Prevacid) 30 mg DAILY@06 GTB Last administered on 08/12/18 06:05; Admin Dose 30 MG; Start 08/05/18 at 06:00 Midazolam HCl 50 ml @ 1 mls/hr TITRATE IV Last administered on 08/11/18 17:38; Admin Dose 3 MLS/HR; Start 08/05/18 at 12:00 Norepinephrine 250 ml @ 1.875 mls/ hr TITRATE IV Last administered on 08/05/18 13:00; Admin Dose 30 MLS/HR; Start 08/05/18 at 13:00 Phenylephrine HCl 80 mg/Dextrose 250 ml @ 18.75 mls/ hr TITRATE IV Last administered on 08/09/18 01:42; Admin Dose 6.56 MLS/HR; Start 08/06/18 at 15:30 Levofloxacin/ Dextrose 50 ml @ 50 mls/hr DAILY IVPB Last administered on 2/6/19at 08:17; Admin Dose 50 MLS/HR; Start 08/08/18 at 09:00 Vancomycin/Sodium Chloride 250 ml @ 125 mls/hr Q72H IVPB Last administered on 08/11/18at 11:12; Admin Dose 125 MLS/HR; Start 08/11/18 at 11:00 Furosemide (Lasix) 40 mg BID DIURETICS IV Last administered on 08/12/18at 08:26; Admin Dose 40 MG; Start 08/12/18 at 08:00 RAMÓN VILLALOBOS Aug 12, 2018 13:03
--- NOTE | 2018-08-12 14:33 | CONS ---
Assessment/Plan Assessment/Plan Hospital Course 73 yo F with multiple cerebrovascular risk factors who presents with acute respiratory failure, requiring emergent intubation. It was noted that pt was unresponsive after sedation was held... for which neurology is consulted. She is reported to have had multiple episodes of paroxysmal atrial fibrillation over the past few days, which raised clinical suspicion for stroke. CTH confirmed multiple large acute infarcts b/l... EEG is without epileptiform activity to suggest superimposed subclinical seizure. P: Add echo, carotid US Add lipid panel, ESR, RPR Cont asa daily for stroke prevention Add lipitor 10 hs pending lipid panel Hold sedating medications where possible Other medical management per primary Will follow clinically Consultation Date/Type/Reason Admit Date/Time Jul 28, 2018 at 18:16 Type of Consult Neurology Reason for Consultation ams Requesting Provider: ABDIAS STAPLES MD Date/Time of Note DATE: 08/12/18 TIME: 14:19 24 HR Interval Summary Free Text/Dictation Continues critical care. S/p CTH. Off sedation. No changes in pt condition reported. Subjective hx not possible: pt critical status Exam Vital Signs Vitals Vital Signs Date Temp Pulse Resp B/P (MAP) Pulse Ox O2 O2 Flow FiO2 Time Delivery Rate 08/12/18 99.4 101 15 156/49 99 Mechanical 12:00 (84) Ventilator 08/12/18 40 12:00 Intake and Output 08/11/18 08/11/18 08/12/18 1515:00 23:00 07:00 IntakeIntake Total 976 ml 748 ml 724 ml OutputOutput Total 735 ml 850 ml 900 ml BalanceBalance 241 ml -102 ml -176 ml Exam PE: Gen Appearance: No Apparent Distress HEENT: Intubated; has NGT Cardiovascular: Regular rate Abdomen: Soft Extremities: Dry NE: The patient was comatose. Cranial nerve examination was limited by mental status. Pupils were equal and sluggishly reactive to light. There was no afferent pupillary defect. Funduscopic examination was limited. Face was grossly symmetric, w/ present corneal reflexes. Tone was normal. Muscle bulk was normal. I did not see fasciculations. The patient minimally withdrew RLE to noxious stimulation; did not withdraw to noxious stimuli in the other extremities. Coordination and gait testing was limited by mental status. Arm and leg reflexes were symmetric. Connell's sign was absent. Plantar responses were mute. CONNER NUÑEZ NP Aug 12, 2018 14:33 USAMA BURNS Aug 12, 2018 14:56
--- NOTE | 2018-08-12 14:45 | CONS ---
Assessment/Plan Assessment/Plan Hospital Course (Demo Recall) Patient spiked fever this morning status post Tylenol she is unresponsive in no distress was white blood cell count increased to 16.7 platelets 41 neutrophils 81.4 H&H 7.9 and 24.9 BUN 107 creatinine 1.68 Chest x-ray this morning revealed unchanged diffuse bilateral interstitial infiltrates and small pleural effusions Indwelling: Endotracheal tube, NG tube, Landis, PICC line Microbiology: Sputum culture on August 06 grew MRSA and Ivania albicans Antimicrobials: Vancomycin, Levaquin, fluconazole Allergies: Penicillin, tetracycline Physical examination: This is a fragile chronically ill-appearing wasted elderly woman who is in no distress. Head atraumatic normocephalic sclera nonicteric. Neck is supple. Chest rise symmetrical breath sounds diminished bases. Heart: S1-S2. Abdomen soft bowel sounds present extremities without cyanosis. Assessment: 1. Severe sepsis, status post shock 2. Acute on chronic respiratory failure, status post intubation 08/02/18 3. Healthcare associated pneumonia/ARDS 4. Coag negative staph bacteremia, possibly contaminant 5. Anemia with progressive thrombocytopenia 6. ARF 5. Peripheral arterial disease status post stent 6. Pancreatic head mass, patient is following with a specialist yearly 7. Recent right hip fracture status post surgical intervention 8. Encephalopathy, acute Plan: Overall doing poorly, EEG revealed epileptiform activity. Add meropenem, continue antibiotics, repeat cultures, cardiology/neuro/pulmonary rec-s Consultation Date/Type/Reason Admit Date/Time Jul 28, 2018 at 18:16 Initial Consult Date 07/28/18 Type of Consult id Requesting Provider: ABDIAS STAPLES MD Date/Time of Note DATE: 08/12/18 TIME: 14:42 Exam/Review of Systems Exam Vitals Vital Signs Date Temp Pulse Resp B/P (MAP) Pulse Ox O2 O2 Flow FiO2 Time Delivery Rate 08/12/18 99.4 101 15 156/49 99 Mechanical 12:00 (84) Ventilator 08/12/18 40 12:00 Intake and Output 08/11/18 08/11/18 08/12/18 1515:00 23:00 07:00 IntakeIntake Total 976 ml 748 ml 724 ml OutputOutput Total 735 ml 850 ml 900 ml BalanceBalance 241 ml -102 ml -176 ml Results Result Diagram: 08/12/18 0400 08/12/18 0400 Results 24hrs Laboratory Tests Test 08/11/18 15:35 08/12/18 04:00 Ammonia < 9 L Vitamin B12 Level 505 White Blood Count 16.7 #H Red Blood Count 2.50 L Hemoglobin 7.9 L Hematocrit 24.9 L Mean Corpuscular Volume 99.6 Mean Corpuscular Hemoglobin 31.6 Mean Corpuscular Hemoglobin Concent 31.7 L Red Cell Distribution Width 19.2 H Platelet Count 41 L Mean Platelet Volume 12.8 H Immature Granulocytes % 2.400 H Neutrophils % 81.4 H Lymphocytes % 10.0 L Monocytes % 2.6 Eosinophils % 3.5 Basophils % 0.1 Nucleated Red Blood Cells % 0.3 H Immature Granulocytes # 0.400 H Neutrophils # 13.6 H Lymphocytes # 1.7 Monocytes # 0.4 Eosinophils # 0.6 H Basophils # 0.0 Nucleated Red Blood Cells # 0.1 H Sodium Level 139 Potassium Level 4.7 Chloride Level 107 Carbon Dioxide Level 24 Anion Gap 8 Blood Urea Nitrogen 107 H Creatinine 1.68 H Est Glomerular Filtrat Rate mL/min Glucose Level 100 Calcium Level 8.6 Phosphorus Level 4.4 Magnesium Level 2.5 Digoxin Level < 0.4 L Medications Medication Current Medications Vancomycin HCl (Vanco Iv Per Pharmacy) VANCOMYCIN PER PHARMACY PER PROTOCOL XX ; Start 07/28/18 at 17:30 Albuterol/ Ipratropium (Duoneb) 3 ml Q6H RESP THERAPY HHN Last administered on 08/02/18at 01:07; Admin Dose 3 ML; Start 07/28/18 at 20:00; Status Hold Calcium/Vitamin D (Oyster Shell/ Vit-D (500/200)) 1 tab BID PO Last administered on 08/12/18at 08:14; Admin Dose 1 TAB; Start 07/28/18 at 21:00 Clonazepam (Klonopin) 0.5 mg BID PRN PO ANXIETY Last administered on 08/04/18at 21:00; Admin Dose 0.5 MG; Start 07/28/18 at 21:00 Clonidine (Catapres) 0.1 mg TID PRN PO ELEVATED BLOOD PRESSURE Last administered on 08/12/18at 13:00; Admin Dose 0.1 MG; Start 07/28/18 at 21:00 Hydromorphone HCl (Dilaudid) 2 mg Q4H PRN PO SEVERE PAIN LEVEL 7-10 Last administered on 08/01/18 23:34; Admin Dose 2 MG; Start 07/28/18 at 21:00 Docusate Sodium (Colace) 100 mg BID PRN PO CONSTIPATION; Start 07/28/18 at 21:00 Gabapentin (Neurontin) 200 mg BID PO Last administered on 08/12/18 08:14; Admin Dose 200 MG; Start 07/28/18 at 21:00 Magnesium Hydroxide (Milk Of Mag) 30 ml DAILY PRN PO CONSTIPATION; Start 07/28/18 at 21:00 Acetaminophen/ Hydrocodone Bitart (Leona (10)) 1 tab Q4H PRN PO MODERATE PAIN LEVEL 4-6 Last administered on 08/01/18 21:02; Admin Dose 1 TAB; Start 07/28/18 at 21:00 Carisoprodol (Soma) 350 mg BID PRN PO MUSCLE SPASMS; Start 07/28/18 at 21:00 Trazodone HCl (Desyrel) 50 mg HS PRN PO INSOMNIA Last administered on 07/29/18 20:29; Admin Dose 50 MG; Start 07/28/18 at 21:00 Ondansetron HCl (Zofran Inj) 4 mg Q6H PRN IV NAUSEA AND/OR VOMITING; Start 07/28/18 at 21:00 Methylprednisolone Sodium Succinate (Solu-Medrol) 40 mg DAILY IV Last administered on 08/12/18 08:13; Admin Dose 40 MG; Start 07/29/18 at 09:00 Ascorbic Acid (Vitamin C) 500 mg TID PO Last administered on 08/12/18 12:56; Admin Dose 500 MG; Start 07/29/18 at 09:00 Lorazepam (Ativan) 0.5 mg Q6H PRN PO ANXIETY Last administered on 08/10/18 21:28; Admin Dose 0.5 MG; Start 07/29/18 at 20:30 Guaifenesin/ Dextromethorphan (Robitussin Dm Liquid Cup) 5 ml Q4H PRN PO COUGH Last administered on 08/01/18 16:32; Admin Dose 5 ML; Start 07/29/18 at 20:30 Diltiazem HCl 125 ml @ 5 mls/hr TITRATE IV Last administered on 07/30/18 09:40; Admin Dose 5 MLS/HR; Start 07/30/18 at 09:00; Status Hold Dronedarone (Multaq) 400 mg BID WITH MEALS PO Last administered on 08/12/18 08:14; Admin Dose 400 MG; Start 07/30/18 at 09:30 Propofol 100 ml @ 1.986 mls/ hr Q12H IV Last administered on 08/05/18 06:36; Admin Dose 11.916 MLS/HR; Start 08/02/18 at 10:00 Albuterol (Ventolin Hfa) 4 puff Q6H RESP THERAPY INH Last administered on 08/12/18 14:04; Admin Dose 4 PUFF; Start 08/02/18 at 14:00 Ipratropium Lindsay (Atrovent Hfa) 4 puff Q6H RESP THERAPY INH Last administered on 08/12/18 14:05; Admin Dose 4 PUFF; Start 08/02/18 at 14:00 Acetaminophen (Tylenol Liquid) 650 mg Q6H PRN GTB MILD PAIN (1-3) OR TEMPERATURE Last administered on 08/12/18 08:13; Admin Dose 650 MG; Start 08/03/18 at 09:30 Docusate Sodium (Colace Liquid Cup) 100 mg BID PRN GTB CONSTIPATION,,,,; Start 08/03/18 at 09:30 IV Flush (NS 10 ml) 10 ml PRN PRN IV IV PROTOCOL; Start 08/03/18 at 10:30 Fentanyl 100 ml @ 2.5 mls/hr TITRATE IV Last administered on 08/11/18 09:34; Admin Dose 3 MLS/HR; Start 08/04/18 at 09:00 Lansoprazole (Prevacid) 30 mg DAILY@06 GTB Last administered on 08/12/18 06:05; Admin Dose 30 MG; Start 08/05/18 at 06:00 Midazolam HCl 50 ml @ 1 mls/hr TITRATE IV Last administered on 08/11/18 17:38; Admin Dose 3 MLS/HR; Start 08/05/18 at 12:00 Norepinephrine 250 ml @ 1.875 mls/ hr TITRATE IV Last administered on 08/05/18 13:00; Admin Dose 30 MLS/HR; Start 08/05/18 at 13:00 Phenylephrine HCl 80 mg/Dextrose 250 ml @ 18.75 mls/ hr TITRATE IV Last admin istered on 08/09/18at 01:42; Admin Dose 6.56 MLS/HR; Start 08/06/18 at 15:30 Levofloxacin/ Dextrose 50 ml @ 50 mls/hr DAILY IVPB Last administered on 08/12/18 08:17; Admin Dose 50 MLS/HR; Start 08/08/18 at 09:00 Vancomycin/Sodium Chloride 250 ml @ 125 mls/hr Q72H IVPB Last administered on 08/11/18at 11:12; Admin Dose 125 MLS/HR; Start 08/11/18 at 11:00 Furosemide (Lasix) 40 mg BID DIURETICS IV Last administered on 08/12/18at 08:26; Admin Dose 40 MG; Start 08/12/18 at 08:00 Atorvastatin Calcium (Lipitor) 10 mg HS NGT ; Start 08/12/18 at 21:00 ANDREW SMITH NP Aug 12, 2018 14:45
[2018-08-12] MEDS ORDERED: ATORVASTATIN 10 MG TAB NGT SCH (21:00)
[2018-08-12] MEDS: MEROPENEM 500MG/50 ML (PMX) 50 ML IVPB SCH (21:00)
[2018-08-12] MEDS: MIDAZOLAM (DRIP) 50 mg/50 mL 50 ML IV SCH (21:13)
[2018-08-13] VITALS (54 sets, daily range): BP systolic 97–165; BP diastolic 30–73; PULSE 67–130; RESP 18–28
[2018-08-13] MEDS: ALBUTEROL HFA 8 GM INHALER INH SCH ×4 (01:19→20:08)
[2018-08-13] MEDS: IPRATROPIUM (HFA) 12.9 GM INHALER INH SCH ×4 (01:19→20:08)
[2018-08-13] MEDS: FENTAnyl (DRIP) 1000 mcg/100mL 100 ML IV SCH (04:33)
[2018-08-13] MEDS: FUROSEMIDE 40 MG INJ IV SCH (05:28)
[2018-08-13] MEDS: LANSOPRAZOLE 30 MG CAP GTB SCH (05:28)
--- NOTE | 2018-08-13 07:54 | CONS ---
Assessment/Plan Assessment/Plan Assessment/Plan (Daily) CT scan noted , EEG noted please refer to above findings Patient has had acute CVA and diffuse slowing on EEG prognosis is extremely poor Anemia of chronic disease Sepsis syndrome Lateral pulmonary fibrosis Nonobstructive coronary heart disease Acute kidney injury Acute respiratory failure on 10 of PEEP Prognosis is extremely poor I will contact family members now. Consultation Date/Type/Reason Admit Date/Time Jul 28, 2018 at 18:16 Date/Time of Note DATE: 08/13/18 TIME: 07:52 Hx of Present Illness During my initial consultation with family members which was done 07/26/2018 I spoke to patient's daughter at the bedside. The time of dictation was not completed so this is a postdated note for that date. I was asked to see patient in palliative care consultation she had multiple medical problems including prim arily hypoxic respiratory failure she has been treated for pulmonary fibrosis in addition with broad-spectrum IV antibiotic coverage at that time she was on blood pressure with a PEEP of 40 patient's daughter was at the bedside. 2 other siblings who are closely involved in patient's ongoing level of care. Other comorbid medical problems include paroxysmal atrial fibrillation hypertension nonobstructive coronary heart disease. According to family members she has had multiple admissions with the last one year for prior episodes and has pulled through each episode according to family members. It is for this reason I feel patient has a good prognosis and will probably do well and will be able to be extubated. However first daughter that I spoken to realize this patient is more ill than she has been in prior hospitalization. There was at that time was to continue with this level of care pending results of the EEG and CT scan. After that they will make a decision whether or not they want to continue with level of care for started feels remains realistic. Realistic and the fact that her mother may not survive this episode especially based upon the fact that she may have had multiple strokes. However she made it very clear that she is 1 of 3 family members will have to make the final decision on ongoing level of care the of the where the fact that patient is on high flow PEEP to have limited amount of time before they had him incision however PEG would be difficult since stephane stallworth is on 10 of PEEP at this time. They do not feel that patient would want to live on artificial support for the rest of her life. IMPRESSION: Abnormal electroencephalogram due to: severe diffuse slowing. COMMENT: The slowing of the background indicates severe, diffuse cortical dysfunction of nonspecific etiology. USAMA BURNS IMPRESSION: 1. This is of supratentorial and infratentorial subacute appearing infarcts, largest in the confluent posterior left temporal and parietal lobe with mass effect on the left lateral ventricle. Small amount of probable petechial hemorrhage is associated with a right frontal infarct. 2. Minimal 1.3 mm [id number] midline shift. 3. Nonspecific white matter changes most commonly seen with microvascular ischemic disease. Critical findings reported to ICU nurse Shantal on 08/11/2018 6:24:31 PM. RPTAT: [facility] Past Medical History Medical History: cancer, coronary artery disease Home Meds Reported Medications Ondansetron Hcl* (Zofran*) 8 Mg Tablet, 8 MG PO Q6H PRN for NAUSEA AND OR VOMITING, TAB 07/28/18 Guaifenesin (Xpect) 400 Mg Tablet, 400 MG PO Q12, TAB 07/28/18 Acetaminophen* (Acetaminophen*) 650 Mg Tablet, 650 MG PO Q6H PRN for PAIN AND OR ELEVATED TEMP, #30 TAB 07/28/18 Trazodone Hcl* (Trazodone Hcl*) 50 Mg Tablet, 50 MG PO QHS, #30 TAB 07/28/18 Carisoprodol* (Carisoprodol*) 350 Mg Tablet, 350 MG PO BID PRN for MUSCLE SPASMS, TAB 07/28/18 Montelukast Sodium* (Singulair*) 10 Mg Tablet, 10 MG PO QHS, #30 TAB 07/28/18 Sennosides* (Senna Lax*) 8.6 Mg Tablet, 2 TAB PO QHS, TAB 07/28/18 Fluoxetine Hcl* (Prozac*) 20 Mg Capsule, 20 MG PO DAILY, CAP 07/28/18 Promethazine Hcl* (Phenergan* Liq) 6.25 Mg/5 Ml Syrup, 12.5 MG PO Q6H PRN for COUGH, ML 07/28/18 Lansoprazole* (Lansoprazole*) 30 Mg Capsule.dr, 30 MG PO DAILY, CAP 07/28/18 Vit C/E/Zn/Coppr/Lutein/Zeaxan (Preservision Areds 2 Softgel) 1 Each Capsule, 2 EACH PO DAILY, CAP 07/28/18 Prednisone* (Prednisone*) 20 Mg Tab, 40 MG PO DAILY, TAB 07/28/18 Chlorhexidine Gluconate (Peridex) 473 Ml Mouthwash, 15 ML MM BID, BOTTLE 07/28/18 Fletcher-3 Acid Ethyl Esters (Lovaza) 1 Gm Capsule, 2 GM PO DAILY, CAP 07/28/18 Hydrocodone/Acetaminophen ([place] 10-325 Tablet) 1 Each Tablet, 1 EACH PO Q4 PRN for SEVERE PAIN LEVEL 7-10, TAB 07/28/18 Multivitamins* (Theragran*) 1 Tab Tab, 1 TAB PO DAILY, TAB 07/28/18 Guaifenesin (Guaifenesin) 600 Mg Tablet.sa, 600 MG PO BID, TAB 07/28/18 Magnesium Hydroxide* (Milk Of Magnesia*) 400 Mg/5 Ml Oral.susp, 30 ML PO DAILY PRN for CHEST PAIN, ML 07/28/18 Metoprolol Tartrate* (Lopressor*) 50 Mg Tab, 50 MG PO DAILY, #60 TAB HOLD FOR SBP<110 OR HR<60 07/28/18 Atorvastatin Calcium (Atorvastatin Calcium) 10 Mg Tablet, 10 MG PO QHS, #30 TAB 07/28/18 Lidocaine (Lidocaine) 5 Gm Cream..g., 5 GM TP DAILY 07/28/18 Furosemide* (Lasix*) 20 Mg Tablet, 20 MG PO DAILY, TAB 07/28/18 Lactobacillus Rhamnosus* (Culturelle*) 1 Each Cap.sprink, 1 CAP PO DAILY, CAP 07/28/18 Ipratropium-Albuterol (Ipratropium-Albuterol) 0.5-3 Mg/3 Ml Ampul.neb, 3 ML INHALATION Q4 PRN for SHORTNESS OF BREATH, #30 VIAL 07/28/18 Gabapentin* (Gabapentin*) 100 Mg Capsule, 200 MG PO BID, #180 CAP 07/28/18 Folic Acid* (Folic Acid*) 1 Mg Tablet, 1 MG PO DAILY, TAB 07/28/18 Ferrous Sulfate* (Ferrous Sulfate*) 325 Mg Tabec, 325 MG PO TID, TAB 07/28/18 Estrogens Conjugated* (Premarin*) 0.45 Mg Tablet, 0.45 MG PO DAILY, TAB 07/28/18 Bisacodyl (Dulcolax) 10 Mg Supp.rect, 10 MG RC Q48, SUPP.RECT 07/28/18 Docusate Sodium* (Colace*) 100 Mg Capsule, 100 MG PO QHS PRN for CONSTIPATION, #60 CAP 07/28/18 Hydromorphone Hcl* (Dilaudid*) 2 Mg Tablet, 2 MG PO Q6H PRN for SEVERE PAIN LEVEL 7-10, TAB 07/28/18 Cyanocobalamin* (Vitamin B12*) 500 Mcg Tab, 500 MCG PO DAILY, TAB 07/28/18 Clonidine Hcl* (Clonidine Hcl*) 0.1 Mg Tab, 0.1 MG PO Q8, TAB 07/28/18 Clonazepam* (Clonazepam*) 0.5 Mg Tablet, 0.5 MG PO BID PRN for ANXIETY, TAB 07/28/18 Calcium Carbonate/Vitamin D3 (Oysco 500+D Tablet) 1 Each Tablet, 1 EACH PO BID, TAB 07/28/18 Fluticasone/Vilanterol (Breo Ellipta 200-25 Mcg INH) 1 Each Blst.w.dev, 1 PUFF INHALATION DAILY, #1 INHALER 07/28/18 Lorazepam* (Lorazepam*) 0.5 Mg Tablet, 0.5 MG PO Q6 PRN for ANXIETY, TAB 07/28/18 Diphenhydramine Hcl* (Benadryl*) 25 Mg Cap, 25 MG PO Q8 PRN for PRN, CAP 07/28/18 Aspirin* (Aspirin* Chew) 81 Mg Tab.chew, 81 MG PO DAILY, TAB.CHEW 07/28/18 Ascorbic Acid* (Vitamin C*) 500 Mg Capsule.sa, 500 MG PO TID, CAP 07/28/18 Apixaban* (Eliquis*) 5 Mg Tablet, 5 MG PO BID, TAB 07/28/18 Hydrocortisone Acetate (Anusol-Hc) 25 Mg Supp.rect, 25 MG UT BID PRN for CONSTIPATION, SUPP.RECT 07/28/18 Amiodarone Hcl* (Amiodarone Hcl*) 200 Mg Tablet, 200 MG PO BID, #30 TAB HOLD FOR SBP<110 OR HR<60 07/28/18 Medications Current Medications Vancomycin HCl (Vanco Iv Per Pharmacy) VANCOMYCIN PER PHARMACY PER PROTOCOL XX ; Start 07/28/18 at 17:30 Albuterol/ Ipratropium (Duoneb) 3 ml Q6H RESP THERAPY HHN Last administered on 08/02/18 01:07; Admin Dose 3 ML; Start 07/28/18 at 20:00; Status Hold Calcium/Vitamin D (Oyster Shell/ Vit-D (500/200)) 1 tab BID PO Last administered on 08/12/18 21:01; Admin Dose 1 TAB; Start 07/28/18 at 21:00 Clonazepam (Klonopin) 0.5 mg BID PRN PO ANXIETY Last administered on 08/04/18 21:00; Admin Dose 0.5 MG; Start 07/28/18 at 21:00 Clonidine (Catapres) 0.1 mg TID PRN PO ELEVATED BLOOD PRESSURE Last administered on 08/12/18 22:34; Admin Dose 0.1 MG; Start 07/28/18 at 21:00 Hydromorphone HCl (Dilaudid) 2 mg Q4H PRN PO SEVERE PAIN LEVEL 7-10 Last administered on 08/01/18 23:34; Admin Dose 2 MG; Start 07/28/18 at 21:00 Docusate Sodium (Colace) 100 mg BID PRN PO CONSTIPATION; Start 07/28/18 at 21:00 Gabapentin (Neurontin) 200 mg BID PO Last administered on 08/12/18 21:01; Admin Dose 200 MG; Start 07/28/18 at 21:00 Magnesium Hydroxide (Milk Of Mag) 30 ml DAILY PRN PO CONSTIPATION; Start 07/28/18 at 21:00 Acetaminophen/ Hydrocodone Bitart ([place] (10/325)) 1 tab Q4H PRN PO MODERATE PAIN LEVEL 4-6 Last administered on 08/01/18 21:02; Admin Dose 1 TAB; Start 07/28/18 at 21:00 Carisoprodol (Soma) 350 mg BID PRN PO MUSCLE SPASMS; Start 07/28/18 at 21:00 Trazodone HCl (Desyrel) 50 mg HS PRN PO INSOMNIA Last administered on 07/29/18 20:29; Admin Dose 50 MG; Start 07/28/18 at 21:00 Ondansetron HCl (Zofran Inj) 4 mg Q6H PRN IV NAUSEA AND/OR VOMITING; Start 07/28/18 at 21:00 Methylprednisolone Sodium Succinate (Solu-Medrol) 40 mg DAILY IV Last administered on 08/12/18 08:13; Admin Dose 40 MG; Start 07/29/18 at 09:00 Ascorbic Acid (Vitamin C) 500 mg TID PO Last administered on 08/12/18 21:01; Admin Dose 500 MG; Start 07/29/18 at 09:00 Lorazepam (Ativan) 0.5 mg Q6H PRN PO ANXIETY Last administered on 08/10/18 21:28; Admin Dose 0.5 MG; Start 07/29/18 at 20:30 Guaifenesin/ Dextromethorphan (Robitussin Dm Liquid Cup) 5 ml Q4H PRN PO COUGH Last administered on 08/01/18 16:32; Admin Dose 5 ML; Start 07/29/18 at 20:30 Diltiazem HCl 125 ml @ 5 mls/hr TITRATE IV Last administered on 07/30/18 09:40; Admin Dose 5 MLS/HR; Start 07/30/18 at 09:00; Status Hold Dronedarone (Multaq) 400 mg BID WITH MEALS PO Last administered on 08/12/18 16:59; Admin Dose 400 MG; Start 07/30/18 at 09:30 Propofol 100 ml @ 1.986 mls/ hr Q12H IV Last administered on 08/05/18 06:36; Admin Dose 11.916 MLS/HR; Start 08/02/18 at 10:00 Albuterol (Ventolin Hfa) 4 puff Q6H RESP THERAPY INH Last administered on 08/13/18 01:19; Admin Dose 4 PUFF; Start 08/02/18 at 14:00 Ipratropium Paradis (Atrovent Hfa) 4 puff Q6H RESP THERAPY INH Last administered on 08/13/18 01:19; Admin Dose 4 PUFF; Start 08/02/18 at 14:00 Acetaminophen (Tylenol Liquid) 650 mg Q6H PRN GTB MILD PAIN (1-3) OR TEMPERATURE Last administered on 08/12/18 08:13; Admin Dose 650 MG; Start 08/03/18 at 09:30 Docusate Sodium (Colace Liquid Cup) 100 mg BID PRN GTB CONSTIPATION,,,,; Start 08/03/18 at 09:30 IV Flush (NS 10 ml) 10 ml PRN PRN IV IV PROTOCOL; Start 08/03/18 at 10:30 Fentanyl 100 ml @ 2.5 mls/hr TITRATE IV Last administered on 08/13/18 04:33; Admin Dose 2.5 MLS/HR; Start 08/04/18 at 09:00 Lansoprazole (Prevacid) 30 mg DAILY@06 GTB Last administered on 08/13/18 05:28; Admin Dose 30 MG; Start 08/05/18 at 06:00 Midazolam HCl 50 ml @ 1 mls/hr TITRATE IV Last administered on 08/12/18 21:13; Admin Dose 2 MLS/HR; Start 08/05/18 at 12:00 Norepinephrine 250 ml @ 1.875 mls/ hr TITRATE IV Last administered on 08/05/18 13:00; Admin Dose 30 MLS/HR; Start 08/05/18 at 13:00 Phenylephrine HCl 80 mg/Dextrose 250 ml @ 18.75 mls/ hr TITRATE IV Last administered on 08/09/18 01:42; Admin Dose 6.56 MLS/HR; Start 08/06/18 at 15:30 Levofloxacin/ Dextrose 50 ml @ 50 mls/hr DAILY IVPB Last administered on 08/12/18 08:17; Admin Dose 50 MLS/HR; Start 08/08/18 at 09:00 Vancomycin/Sodium Chloride 250 ml @ 125 mls/hr Q72H IVPB Last administered on 08/11/18 11:12; Admin Dose 125 MLS/HR; Start 08/11/18 at 11:00 Atorvastatin Calcium (Lipitor) 10 mg HS NGT Last administered on 08/12/18 21:01; Admin Dose 10 MG; Start 08/12/18 at 21:00 Meropenem/Sodium Chloride 50 ml @ 100 mls/hr Q12 IVPB Last administered on 08/12/18 21:00; Admin Dose 100 MLS/HR; Start 08/12/18 at 21:00 Furosemide (Lasix) 20 mg DAILY IV ; Start 08/13/18 at 09:00 Allergies: Coded Allergies: Penicillins (Verified Allergy, Unknown, SWELLING, 09/03/07) Tetracyclines (Verified Allergy, Unknown, 08/10/16) acetaminophen (Unverified Allergy, Unknown, 07/11/14) RE-ENTERED UNCODED ALLERGY CODED hydrocodone (Unverified Allergy, Unknown, 07/11/14) RE-ENTERED UNCODED ALLERGY CODED morphine (Verified Allergy, Unknown, 08/10/16) oxycodone (Unverified Allergy, Unknown, 07/11/14) RE-ENTERED UNCODED ALLERGY CODED zolpidem (Verified Allergy, Unknown, SWELLING, 09/03/07) Family History Significant Family History: other (Unknown) Social History Alcohol Use: none Smoking Status: Former smoker Drug Use: none Exam/Review of Systems Exam Vitals Vital Signs Date Temp Pulse Resp B/P (MAP) Pulse Ox O2 O2 Flow FiO2 Time Delivery Rate 08/13/18 84 24 100/37 99 06:00 (58) 08/13/18 40 05:08 08/13/18 98.0 Mechanical 04:00 Ventilator Intake and Output 08/12/18 08/12/18 08/13/18 1515:00 23:00 07:00 IntakeIntake Total 718 ml 702 ml 672 ml OutputOutput Total 1625 ml 1675 ml 1500 ml BalanceBalance -907 ml -973 ml -828 ml Constitutional: distress, frail Head: normocephalic, atraumatic; No lacerations, No hematomas, No other Eyes: nl conjunctiva, EOMI, nl lids, nl sclera, PERRL; No icteric, No fundi, disc, No other ENMT: nl external ears & nose, nl lips & teeth, nl nasal mucosa & septum; No mucosa pink and moist, No intubated, No tympanic membranes, No other Neck: supple, non-tender; No jvd, No bruits, No masses, No thyromegaly, No nuchal rigidity, No other Respiratory: clear to auscultation, normal air movement, congested cough, crackles/rales, diminished breath sounds, intercostal retraction, labored breathing, respirations, tactile fremitus, wheezing, other Cardiovascular: irregular rhythm, jugular venous distention (JVD), murmurs/extra sounds Gastrointestinal: soft, nl liver, spleen Neurological: other (Able to respond to simple commands patient is sedated nonpurposeful movement oculocephalics intact though sluggish) Results Result Diagram: 08/13/18 0500 08/13/18 0500 Results 24hrs Laboratory Tests Test 08/12/18 14:54 08/13/18 05:00 08/13/18 07:00 Erythrocyte Sedimentation Rate 10 Triglycerides Level 143 Cholesterol Level 101 LDL Cholesterol, Calculated 50 HDL Cholesterol 22 L Cholesterol/HDL Ratio 4.5 White Blood Count 17.6 H Red Blood Count 2.63 L Hemoglobin 8.3 L Hematocrit 25.4 L Mean Corpuscular Volume 96.6 Mean Corpuscular Hemoglobin 31.6 Mean Corpuscular 32.7 Hemoglobin Concent Red Cell Distribution Width 19.2 H Platelet Count 49 L Mean Platelet Volume 12.9 H Immature Granulocytes % 1.500 H Neutrophils % 91.3 H Lymphocytes % 4.6 L Monocytes % 2.1 Eosinophils % 0.4 Basophils % 0.1 Nucleated Red Blood Cells % 0.0 Immature Granulocytes # 0.260 H Neutrophils # 16.1 H Lymphocytes # 0.8 Monocytes # 0.4 Eosinophils # 0.1 Basophils # 0.0 Nucleated Red Blood Cells # 0.0 Sodium Level 140 Potassium Level 4.7 Chloride Level 105 Carbon Dioxide Level 26 Anion Gap 9 Blood Urea Nitrogen 115 H Creatinine 1.42 H Est Glomerular Filtrat Rate mL/min Glucose Level 119 Calcium Level 8.6 Phosphorus Level 4.5 Magnesium Level 2.4 Blood Gas Specimen Source Blood arterial Arterial Blood Date Drawn 08/13/2018 7:03:09 AM Arterial Blood pH 7.412 (Temp corrected) Arterial Blood pCO2 40.1 (Temp correct) Arterial Blood pO2 104.7 H (Temp corrected) Arterial Blood HCO3 25.0 Arterial Blood Base Excess 0.4 Arterial Blood 97.1 Oxygen Saturation Vick Test ACCEPTAB Arterial Blood Gas Right Radial Puncture Site Arterial 0.3 Blood Carboxyhemoglobin Arterial Blood Methemoglobin 0.2 Blood Gas A-a O2 Differential 134.4 H Oxyhemoglobin Percent 96.6 Blood Gas Temperature 37.0 Blood Gas Respiration Rate 24.0 Blood Gas Actual 24 Respiration Rate Blood Gas Modality VENT - AC FiO2 40.0 Blood Gas Tidal Volume 500.0 Blood Gas Low PEEP Setting 10.0 Blood Gas Notified Whom TM Blood Gas Notified Time 08/13/2018 7:38:01 AM Medications Medication Current Medications Vancomycin HCl (Vanco Iv Per Pharmacy) VANCOMYCIN PER PHARMACY PER PROTOCOL XX ; Start 07/28/18 at 17:30 Albuterol/ Ipratropium (Duoneb) 3 ml Q6H RESP THERAPY HHN Last administered on 08/02/18 01:07; Admin Dose 3 ML; Start 07/28/18 at 20:00; Status Hold Calcium/Vitamin D (Oyster Shell/ Vit-D (500/200)) 1 tab BID PO Last administered on 08/12/18 21:01; Admin Dose 1 TAB; Start 07/28/18 at 21:00 Clonazepam (Klonopin) 0.5 mg BID PRN PO ANXIETY Last administered on 08/04/18 21:00; Admin Dose 0.5 MG; Start 07/28/18 at 21:00 Clonidine (Catapres) 0.1 mg TID PRN PO ELEVATED BLOOD PRESSURE Last admi nistered on 08/12/18 22:34; Admin Dose 0.1 MG; Start 07/28/18 at 21:00 Hydromorphone HCl (Dilaudid) 2 mg Q4H PRN PO SEVERE PAIN LEVEL 7-10 Last administered on 08/01/18 23:34; Admin Dose 2 MG; Start 07/28/18 at 21:00 Docusate Sodium (Colace) 100 mg BID PRN PO CONSTIPATION; Start 07/28/18 at 21:00 Gabapentin (Neurontin) 200 mg BID PO Last administered on 08/12/18 21:01; Admin Dose 200 MG; Start 07/28/18 at 21:00 Magnesium Hydroxide (Milk Of Mag) 30 ml DAILY PRN PO CONSTIPATION; Start 07/28/18 at 21:00 Acetaminophen/ Hydrocodone Bitart ([place] (10/325)) 1 tab Q4H PRN PO MODERATE PAIN LEVEL 4-6 Last administered on 08/01/18 21:02; Admin Dose 1 TAB; Start 07/28/18 at 21:00 Carisoprodol (Soma) 350 mg BID PRN PO MUSCLE SPASMS; Start 07/28/18 at 21:00 Trazodone HCl (Desyrel) 50 mg HS PRN PO INSOMNIA Last administered on 07/29/18 20:29; Admin Dose 50 MG; Start 07/28/18 at 21:00 Ondansetron HCl (Zofran Inj) 4 mg Q6H PRN IV NAUSEA AND/OR VOMITING; Start 07/28/18 at 21:00 Methylprednisolone Sodium Succinate (Solu-Medrol) 40 mg DAILY IV Last administered on 08/12/18 08:13; Admin Dose 40 MG; Start 07/29/18 at 09:00 Ascorbic Acid (Vitamin C) 500 mg TID PO Last administered on 08/12/18 21:01; Admin Dose 500 MG; Start 07/29/18 at 09:00 Lorazepam (Ativan) 0.5 mg Q6H PRN PO ANXIETY Last administered on 08/10/18 21:28; Admin Dose 0.5 MG; Start 07/29/18 at 20:30 Guaifenesin/ Dextromethorphan (Robitussin Dm Liquid Cup) 5 ml Q4H PRN PO COUGH Last administered on 08/01/18 16:32; Admin Dose 5 ML; Start 07/29/18 at 20:30 Diltiazem HCl 125 ml @ 5 mls/hr TITRATE IV Last administered on 07/30/18 09:40; Admin Dose 5 MLS/HR; Start 07/30/18 at 09:00; Status Hold Dronedarone (Multaq) 400 mg BID WITH MEALS PO Last administered on 08/12/18 16:59; Admin Dose 400 MG; Start 07/30/18 at 09:30 Propofol 100 ml @ 1.986 mls/ hr Q12H IV Last administered on 08/05/18 06:36; Admin Dose 11.916 MLS/HR; Start 08/02/18 at 10:00 Albuterol (Ventolin Hfa) 4 puff Q6H RESP THERAPY INH Last administered on 08/13/18 01:19; Admin Dose 4 PUFF; Start 08/02/18 at 14:00 Ipratropium Paradis (Atrovent Hfa) 4 puff Q6H RESP THERAPY INH Last administered on 08/13/18 01:19; Admin Dose 4 PUFF; Start 08/02/18 at 14:00 Acetaminophen (Tylenol Liquid) 650 mg Q6H PRN GTB MILD PAIN (1-3) OR TEMPERATURE Last administered on 08/12/18 08:13; Admin Dose 650 MG; Start 08/03/18 at 09:30 Docusate Sodium (Colace Liquid Cup) 100 mg BID PRN GTB CONSTIPATION,,,,; Start 08/03/18 at 09:30 IV Flush (NS 10 ml) 10 ml PRN PRN IV IV PROTOCOL; Start 08/03/18 at 10:30 Fentanyl 100 ml @ 2.5 mls/hr TITRATE IV Last administered on 08/13/18 04:33; Admin Dose 2.5 MLS/HR; Start 08/04/18 at 09:00 Lansoprazole (Prevacid) 30 mg DAILY@06 GTB Last administered on 08/13/18 05:28; Admin Dose 30 MG; Start 08/05/18 at 06:00 Midazolam HCl 50 ml @ 1 mls/hr TITRATE IV Last administered on 08/12/18 21:13; Admin Dose 2 MLS/HR; Start 08/05/18 at 12:00 Norepinephrine 250 ml @ 1.875 mls/ hr TITRATE IV Last administered on 07/09 13:00; Admin Dose 30 MLS/HR; Start 08/05/18 at 13:00 Phenylephrine HCl 80 mg/Dextrose 250 ml @ 18.75 mls/ hr TITRATE IV Last administered on 08/09/18 01:42; Admin Dose 6.56 MLS/HR; Start 08/06/18 at 15:30 Levofloxacin/ Dextrose 50 ml @ 50 mls/hr DAILY IVPB Last administered on 08/12/18 08:17; Admin Dose 50 MLS/HR; Start 08/08/18 at 09:00 Vancomycin/Sodium Chloride 250 ml @ 125 mls/hr Q72H IVPB Last administered on 08/11/18 11:12; Admin Dose 125 MLS/HR; Start 08/11/18 at 11:00 Atorvastatin Calcium (Lipitor) 10 mg HS NGT Last administered on 08/12/18 21:01; Admin Dose 10 MG; Start 08/12/18 at 21:00 Meropenem/Sodium Chloride 50 ml @ 100 mls/hr Q12 IVPB Last administered on 08/12/18 21:00; Admin Dose 100 MLS/HR; Start 08/12/18 at 21:00 Furosemide (Lasix) 20 mg DAILY IV ; Start 08/13/18 at 09:00 BART FIORE Aug 13, 2018 07:54
--- NOTE | 2018-08-13 07:59 | CONS ---
Consult Date/Type/Reason Admit Date/Time Jul 28, 2018 at 18:16 Initial Consult Date 07/28/18 Type of Consultation: cv Requesting Provider: ABDIAS STAPLES MD Date/Time of Note DATE: 08/13/18 TIME: 07:56 Subjective Cardiology follow-up progress note Subjective: Discussed with the staff telemetry was reviewed. Patient has converted back to NSR now but appears to be going to atrial fibrillation with rapid ventricular response once off sedation or on weaning Patient REMAINS INTUBATED on vent in ICU. Patient is lethargic and unresponsive Objective: General: Elderly female INTUBATED on vent . HEENT: NC/AT. pupils are equal. round. NECK: + JVD. no stridor. CV RRR now systolic murmur; no gallop or rubs. PULM: no wheezing + rhonchi. GI: SOFT, NT, ND, no rebound or guarding Extremity: + LE edema. no clubbing. neuro: Unresponsive Psych: calm rectal: deferred : Deferred EKG was personally within normal sinus rhythm with no evidence of ischemia CT pulmonary angiogram done in the emergency room shows: 1. Moderate pulmonary fibrosis, worse at the bilateral lung apices. Associated mediastinal adenopathy. Underlying mass not entirely excluded. Further evaluation with PET-CT may be obtained. 2. Small right multiloculated pleural effusion. Moderate left layering pleural effusion. 3. Streaky bibasilar opacities compatible with atelectasis or pneumonia. 4. Dilated pulmonary trunk and bilateral pulmonary arteries compatible with sequelae of pulmonary hypertension. 5. Left renal 4 cm hyperdense cyst or mass. Further evaluation with multiphase contrast enhanced CT or MR may be obtained. Echocardiogram was personally reviewed which shows: Normal left ventricular systolic function. Normal left ventricular cavity size. Mild concentric left ventricular hypertrophy. Ejection fraction is visually estimated at 55 %. There is mild enlargement of left atrium. Normal appearance of the mitral valve. Mild mitral valve regurgitation. Aortic sclerosis without significant stenosis. Aortic cusps appear mildly calcified. Trileaflet aortic valve. Trace aortic valve regurgitation. Normal appearance of the tricuspid valve. Estimated peak PA systolic pressure 71 mmHg. There is mild tricuspid regurgitation. Normal size and normal respiratory collapse consistent with normal right atrial pressure. CXR 08/05 Again seen are diffuse coarse interstitial infiltrates with superimposed ground-glass densities, slightly more confluent within the perihilar regions and right lower lobe. The osseous structures are unremarkable. Chest x-ray August 06, 2018 shows: Stable patchy infiltrates throughout both lungs with potential small pleural effusions. Stable diffuse mild interstitial prominence in both lungs. Interstitial prominence could be chronic. CT HEAD 08/11/18 FINDINGS: There are numerous supratentorial and infratentorial non-hemorrhagic subacute appearing infarcts or additional infarcts involving the left thalamus are present. There is a right frontal infarct with marginal hyperdensity suggesting a component of petechial hemorrhage. There is generalize effacement of the involve sulci greatest involving the left parietal lobe. There is no left basal ganglia lacunar infarct redemonstrated. There is 1.3 mm of [id number] midline shift. There is otherwise age appropriate central and peripheral atrophy. There is a moderate degree of supratentorial periventricular and subcortical white matter hypodensities. There is no other intracranial hemorrhage or abnormal extra-axial fluid collection. Visualized paranasal sinuses are clear. IMPRESSION: 1. This is of supratentorial and infratentorial subacute appearing infarcts, largest in the confluent posterior left temporal and parietal lobe with mass effect on the left lateral ventricle. Small amount of probable petechial hemorrhage is associated with a right frontal infarct. 2. Minimal 1.3 mm [id number] midline shift. 3. Nonspecific white matter changes most commonly seen with microvascular ischemic disease. Objective Vitals Vital Signs Date Temp Pulse Resp B/P (MAP) Pulse Ox O2 O2 Flow FiO2 Time Delivery Rate 08/13/18 84 24 100/37 99 06:00 (58) 08/13/18 40 05:08 08/13/18 98.0 Mechanical 04:00 Ventilator Intake and Output 08/12/18 08/12/18 08/13/18 1515:00 23:00 07:00 IntakeIntake Total 718 ml 702 ml 672 ml OutputOutput Total 1625 ml 1675 ml 1500 ml BalanceBalance -907 ml -973 ml -828 ml Results/Medications Result Diagram: 08/13/18 0500 08/13/18 0500 Results 24 hrs Laboratory Tests Test 08/12/18 14:54 08/13/18 05:00 08/13/18 07:00 Erythrocyte Sedimentation Rate 10 Triglycerides Level 143 Cholesterol Level 101 LDL Cholesterol, Calculated 50 HDL Cholesterol 22 L Cholesterol/HDL Ratio 4.5 White Blood Count 17.6 H Red Blood Count 2.63 L Hemoglobin 8.3 L Hematocrit 25.4 L Mean Corpuscular Volume 96.6 Mean Corpuscular Hemoglobin 31.6 Mean Corpuscular 32.7 Hemoglobin Concent Red Cell Distribution Width 19.2 H Platelet Count 49 L Mean Platelet Volume 12.9 H Immature Granulocytes % 1.500 H Neutrophils % 91.3 H Lymphocytes % 4.6 L Monocytes % 2.1 Eosinophils % 0.4 Basophils % 0.1 Nucleated Red Blood Cells % 0.0 Immature Granulocytes # 0.260 H Neutrophils # 16.1 H Lymphocytes # 0.8 Monocytes # 0.4 Eosinophils # 0.1 Basophils # 0.0 Nucleated Red Blood Cells # 0.0 Sodium Level 140 Potassium Level 4.7 Chloride Level 105 Carbon Dioxide Level 26 Anion Gap 9 Blood Urea Nitrogen 115 H Creatinine 1.42 H Est Glomerular Filtrat Rate mL/min Glucose Level 119 Calcium Level 8.6 Phosphorus Level 4.5 Magnesium Level 2.4 Blood Gas Specimen Source Blood arterial Arterial Blood Date Drawn 08/13/2018 7:03:09 AM Arterial Blood pH 7.412 (Temp corrected) Arterial Blood pCO2 40.1 (Temp correct) Arterial Blood pO2 104.7 H (Temp corrected) Arterial Blood HCO3 25.0 Arterial Blood Base Excess 0.4 Arterial Blood 97.1 Oxygen Saturation Vick Test ACCEPTAB Arterial Blood Gas Right Radial Puncture Site Arterial 0.3 Blood Carboxyhemoglobin Arterial Blood Methemoglobin 0.2 Blood Gas A-a O2 Differential 134.4 H Oxyhemoglobin Percent 96.6 Blood Gas Temperature 37.0 Blood Gas Respiration Rate 24.0 Blood Gas Actual 24 Respiration Rate Blood Gas Modality VENT - AC FiO2 40.0 Blood Gas Tidal Volume 500.0 Blood Gas Low PEEP Setting 10.0 Blood Gas Notified Whom TM Blood Gas Notified Time 08/13/2018 7:38:01 AM Home Meds Reported Medications Ondansetron Hcl* (Zofran*) 8 Mg Tablet, 8 MG PO Q6H PRN for NAUSEA AND OR VOMITING, TAB 07/28/18 Guaifenesin (Xpect) 400 Mg Tablet, 400 MG PO Q12, TAB 07/28/18 Acetaminophen* (Acetaminophen*) 650 Mg Tablet, 650 MG PO Q6H PRN for PAIN AND OR ELEVATED TEMP, #30 TAB 07/28/18 Trazodone Hcl* (Trazodone Hcl*) 50 Mg Tablet, 50 MG PO QHS, #30 TAB 07/28/18 Carisoprodol* (Carisoprodol*) 350 Mg Tablet, 350 MG PO BID PRN for MUSCLE SPASMS, TAB 07/28/18 Montelukast Sodium* (Singulair*) 10 Mg Tablet, 10 MG PO QHS, #30 TAB 07/28/18 Sennosides* (Senna Lax*) 8.6 Mg Tablet, 2 TAB PO QHS, TAB 07/28/18 Fluoxetine Hcl* (Prozac*) 20 Mg Capsule, 20 MG PO DAILY, CAP 07/28/18 Promethazine Hcl* (Phenergan* Liq) 6.25 Mg/5 Ml Syrup, 12.5 MG PO Q6H PRN for COUGH, ML 07/28/18 Lansoprazole* (Lansoprazole*) 30 Mg Capsule.dr, 30 MG PO DAILY, CAP 07/28/18 Vit C/E/Zn/Coppr/Lutein/Zeaxan (Preservision Areds 2 Softgel) 1 Each Capsule, 2 EACH PO DAILY, CAP 07/28/18 Prednisone* (Prednisone*) 20 Mg Tab, 40 MG PO DAILY, TAB 07/28/18 Chlorhexidine Gluconate (Peridex) 473 Ml Mouthwash, 15 ML MM BID, BOTTLE 07/28/18 Lysite-3 Acid Ethyl Esters (Lovaza) 1 Gm Capsule, 2 GM PO DAILY, CAP 07/28/18 Hydrocodone/Acetaminophen ([place] 10-325 Tablet) 1 Each Tablet, 1 EACH PO Q4 PRN for SEVERE PAIN LEVEL 7-10, TAB 07/28/18 Multivitamins* (Theragran*) 1 Tab Tab, 1 TAB PO DAILY, TAB 07/28/18 Guaifenesin (Guaifenesin) 600 Mg Tablet.sa, 600 MG PO BID, TAB 07/28/18 Magnesium Hydroxide* (Milk Of Magnesia*) 400 Mg/5 Ml Oral.susp, 30 ML PO DAILY PRN for CHEST PAIN, ML 07/28/18 Metoprolol Tartrate* (Lopressor*) 50 Mg Tab, 50 MG PO DAILY, #60 TAB HOLD FOR SBP<110 OR HR<60 07/28/18 Atorvastatin Calcium (Atorvastatin Calcium) 10 Mg Tablet, 10 MG PO QHS, #30 TAB 07/28/18 Lidocaine (Lidocaine) 5 Gm Cream..g., 5 GM TP DAILY 07/28/18 Furosemide* (Lasix*) 20 Mg Tablet, 20 MG PO DAILY, TAB 07/28/18 Lactobacillus Rhamnosus* (Culturelle*) 1 Each Cap.sprink, 1 CAP PO DAILY, CAP 07/28/18 Ipratropium-Albuterol (Ipratropium-Albuterol) 0.5-3 Mg/3 Ml Ampul.neb, 3 ML INHALATION Q4 PRN for SHORTNESS OF BREATH, #30 VIAL 07/28/18 Gabapentin* (Gabapentin*) 100 Mg Capsule, 200 MG PO BID, #180 CAP 07/28/18 Folic Acid* (Folic Acid*) 1 Mg Tablet, 1 MG PO DAILY, TAB 07/28/18 Ferrous Sulfate* (Ferrous Sulfate*) 325 Mg Tabec, 325 MG PO TID, TAB 07/28/18 Estrogens Conjugated* (Premarin*) 0.45 Mg Tablet, 0.45 MG PO DAILY, TAB 07/28/18 Bisacodyl (Dulcolax) 10 Mg Supp.rect, 10 MG RC Q48, SUPP.RECT 07/28/18 Docusate Sodium* (Colace*) 100 Mg Capsule, 100 MG PO QHS PRN for CONSTIPATION, #60 CAP 07/28/18 Hydromorphone Hcl* (Dilaudid*) 2 Mg Tablet, 2 MG PO Q6H PRN for SEVERE PAIN LEVEL 7-10, TAB 07/28/18 Cyanocobalamin* (Vitamin B12*) 500 Mcg Tab, 500 MCG PO DAILY, TAB 07/28/18 Clonidine Hcl* (Clonidine Hcl*) 0.1 Mg Tab, 0.1 MG PO Q8, TAB 07/28/18 Clonazepam* (Clonazepam*) 0.5 Mg Tablet, 0.5 MG PO BID PRN for ANXIETY, TAB 07/28/18 Calcium Carbonate/Vitamin D3 ([place] 500+D Tablet) 1 Each Tablet, 1 EACH PO BID, TAB 07/28/18 Fluticasone/Vilanterol (Breo Ellipta 200-25 Mcg INH) 1 Each Blst.w.dev, 1 PUFF INHALATION DAILY, #1 INHALER 07/28/18 Lorazepam* (Lorazepam*) 0.5 Mg Tablet, 0.5 MG PO Q6 PRN for ANXIETY, TAB 07/28/18 Diphenhydramine Hcl* (Benadryl*) 25 Mg Cap, 25 MG PO Q8 PRN for PRN, CAP 07/28/18 Aspirin* (Aspirin* Chew) 81 Mg Tab.chew, 81 MG PO DAILY, TAB.CHEW 07/28/18 Ascorbic Acid* (Vitamin C*) 500 Mg Capsule.sa, 500 MG PO TID, CAP 07/28/18 Apixaban* (Eliquis*) 5 Mg Tablet, 5 MG PO BID, TAB 07/28/18 Hydrocortisone Acetate (Anusol-Hc) 25 Mg Supp.rect, 25 MG ID BID PRN for CONSTIPATION, SUPP.RECT 07/28/18 Amiodarone Hcl* (Amiodarone Hcl*) 200 Mg Tablet, 200 MG PO BID, #30 TAB HOLD FOR SBP<110 OR HR<60 07/28/18 Medications Current Medications Vancomycin HCl (Vanco Iv Per Pharmacy) VANCOMYCIN PER PHARMACY PER PROTOCOL XX ; Start 07/28/18 at 17:30 Albuterol/ Ipratropium (Duoneb) 3 ml Q6H RESP THERAPY HHN Last administered on 08/02/18at 01:07; Admin Dose 3 ML; Start 07/28/18 at 20:00; Status Hold Calcium/Vitamin D (Oyster Shell/ Vit-D (500/200)) 1 tab BID PO Last administered on 08/12/18at 21:01; Admin Dose 1 TAB; Start 07/28/18 at 21:00 Clonazepam (Klonopin) 0.5 mg BID PRN PO ANXIETY Last administered on 08/04/18at 21:00; Admin Dose 0.5 MG; Start 07/28/18 at 21:00 Clonidine (Catapres) 0.1 mg TID PRN PO ELEVATED BLOOD PRESSURE Last administered on 08/12/18at 22:34; Admin Dose 0.1 MG; Start 07/28/18 at 21:00 Hydromorphone HCl (Dilaudid) 2 mg Q4H PRN PO SEVERE PAIN LEVEL 7-10 Last administered on 08/01/18at 23:34; Admin Dose 2 MG; Start 07/28/18 at 21:00 Docusate Sodium (Colace) 100 mg BID PRN PO CONSTIPATION; Start 07/28/18 at 21:00 Gabapentin (Neurontin) 200 mg BID PO Last administered on 08/12/18 21:01; Admin Dose 200 MG; Start 07/28/18 at 21:00 Magnesium Hydroxide (Milk Of Mag) 30 ml DAILY PRN PO CONSTIPATION; Start 07/28/18 at 21:00 Acetaminophen/ Hydrocodone Bitart ([place] (10/325)) 1 tab Q4H PRN PO MODERATE PAIN LEVEL 4-6 Last administered on 08/01/18 21:02; Admin Dose 1 TAB; Start 07/28/18 at 21:00 Carisoprodol (Soma) 350 mg BID PRN PO MUSCLE SPASMS; Start 07/28/18 at 21:00 Trazodone HCl (Desyrel) 50 mg HS PRN PO INSOMNIA Last administered on 07/29/18 20:29; Admin Dose 50 MG; Start 07/28/18 at 21:00 Ondansetron HCl (Zofran Inj) 4 mg Q6H PRN IV NAUSEA AND/OR VOMITING; Start 07/28/18 at 21:00 Methylprednisolone Sodium Succinate (Solu-Medrol) 40 mg DAILY IV Last administered on 08/12/18 08:13; Admin Dose 40 MG; Start 07/29/18 at 09:00 Ascorbic Acid (Vitamin C) 500 mg TID PO Last administered on 08/12/18 21:01; Admin Dose 500 MG; Start 07/29/18 at 09:00 Lorazepam (Ativan) 0.5 mg Q6H PRN PO ANXIETY Last administered on 08/10/18 21:28; Admin Dose 0.5 MG; Start 07/29/18 at 20:30 Guaifenesin/ Dextromethorphan (Robitussin Dm Liquid Cup) 5 ml Q4H PRN PO COUGH Last administered on 08/01/18 16:32; Admin Dose 5 ML; Start 07/29/18 at 20:30 Diltiazem HCl 125 ml @ 5 mls/hr TITRATE IV Last administered on 07/30/18 09:40; Admin Dose 5 MLS/HR; Start 07/30/18 at 09:00; Status Hold Dronedarone (Multaq) 400 mg BID WITH MEALS PO Last administered on 08/12/18 16:59; Admin Dose 400 MG; Start 07/30/18 at 09:30 Propofol 100 ml @ 1.986 mls/ hr Q12H IV Last administered on 08/05/18 06:36; Admin Dose 11.916 MLS/HR; Start 08/02/18 at 10:00 Albuterol (Ventolin Hfa) 4 puff Q6H RESP THERAPY INH Last administered on 08/13/18 01:19; Admin Dose 4 PUFF; Start 08/02/18 at 14:00 Ipratropium [place] (Atrovent Hfa) 4 puff Q6H RESP THERAPY INH Last administered on 08/13/18 01:19; Admin Dose 4 PUFF; Start 08/02/18 at 14:00 Acetaminophen (Tylenol Liquid) 650 mg Q6H PRN GTB MILD PAIN (1-3) OR TEMPERATURE Last administered on 08/12/18 08:13; Admin Dose 650 MG; Start 08/03/18 at 09:30 Docusate Sodium (Colace Liquid Cup) 100 mg BID PRN GTB CONSTIPATION,,,,; Start 08/03/18 at 09:30 IV Flush (NS 10 ml) 10 ml PRN PRN IV IV PROTOCOL; Start 08/03/18 at 10:30 Fentanyl 100 ml @ 2.5 mls/hr TITRATE IV Last administered on 08/13/18 04:33; Admin Dose 2.5 MLS/HR; Start 08/04/18 at 09:00 Lansoprazole (Prevacid) 30 mg DAILY@06 GTB Last administered on 08/13/18 05:28; Admin Dose 30 MG; Start 08/05/18 at 06:00 Midazolam HCl 50 ml @ 1 mls/hr TITRATE IV Last administered on 08/12/18 21:13; Admin Dose 2 MLS/HR; Start 08/05/18 at 12:00 Norepinephrine 250 ml @ 1.875 mls/ hr TITRATE IV Last administered on 08/05/18 13:00; Admin Dose 30 MLS/HR; Start 08/05/18 at 13:00 Phenylephrine HCl 80 mg/Dextrose 250 ml @ 18.75 mls/ hr TITRATE IV Last administered on 08/09/18 01:42; Admin Dose 6.56 MLS/HR; Start 08/06/18 at 15:30 Levofloxacin/ Dextrose 50 ml @ 50 mls/hr DAILY IVPB Last administered on 08/12/18at 08:17; Admin Dose 50 MLS/HR; Start 08/08/18 at 09:00 Vancomycin/Sodium Chloride 250 ml @ 125 mls/hr Q72H IVPB Last administered on 08/11/18at 11:12; Admin Dose 125 MLS/HR; Start 08/11/18 at 11:00 Atorvastatin Calcium (Lipitor) 10 mg HS NGT Last administered on 08/12/18at 21:01; Admin Dose 10 MG; Start 08/12/18 at 21:00 Meropenem/Sodium Chloride 50 ml @ 100 mls/hr Q12 IVPB Last administered on 08/12/18 21:00; Admin Dose 100 MLS/HR; Start 08/12/18 at 21:00 Furosemide (Lasix) 20 mg DAILY IV ; Start 08/13/18 at 09:00 Assessment/Plan Hospital Course (Demo Recall) 1. Hypoxemic respiratory failure: Status post intubation on the vent now 2. Pulmonary fibrosis/severe COPD 3. Elevated BNP most likely secondary to above and significant pulmonary hypertension 4. paroxysmal atrial fibrillation; currently converted back to normal sinus rhythm 5. Encephalopathy, CVA: probably embolic 6. pneumonia 7. History of recent fall and hip fracture status post surgery 8. Anemia and OB positive stool 9. Lactic acidosis 10. Hypertension 11. Pulmonary hypertension 12. shock. sepsis 13. Thrombocytopenia Recommendations: off the Eliquis given her OB positive stool as well as thrombocytopenia and worsening anemia and hemoptysis . now with CVA on CT with evidence of petechial bleed as well . allow for permissive HTN. as tolerated Continue with vent support. Antibiotic management as per internal medicine We will continue to monitor on telemetry Correct electrolytes as needed Transfusions as needed off the amiodarone given concern about her severe pulmonary disease and pulmonary fibrosis. cont Multaq . TSH is within normal limits f/u with Neurology consultation /REC . Thank you for his referral. We will continue to follow along with you DAYRON ROGERS MD [facility] DAYRON ROGERS MD Aug 13, 2018 07:59
[2018-08-13] MEDS: METHYLPREDNISOLONE 40 MG INJ IV SCH (08:02)
[2018-08-13] MEDS: LEVOFLOXACIN 250MG/D5W (PMX) 50 ML IVPB SCH (08:05)
[2018-08-13] MEDS: ASCORBIC ACID 500 MG TAB PO SCH ×3 (08:09→20:24)
[2018-08-13] MEDS: CALCIUM/VITAMIN D (500/200) TAB PO SCH ×2 (08:09→20:24)
[2018-08-13] MEDS: DRONEDARONE HYDROCHLORIDE 400 MG TAB PO SCH ×2 (08:09→17:24)
[2018-08-13] MEDS: GABAPENTIN 100 MG CAP PO SCH ×2 (08:09→20:24)
--- NOTE | 2018-08-13 08:10 | PN ---
DATE: 08/13/2018 SUBJECTIVE: The patient remains critically ill on full ventilatory support. The patient had minimal neurologic response. Urinary output has been excellent. OBJECTIVE: VITAL SIGNS: Blood pressure is 100/37, respirations 24, pulse 84, temperature 98.0. HEENT: Head is normocephalic. NECK: Supple. HEART: Regular rate. LUNGS: Show diminished breath sounds at the base. ABDOMEN: Soft, nontender to palpation without rebound or guarding. EXTREMITIES: Negative for clubbing, cyanosis. Positive edema. DERMATOLOGIC: No rashes. MUSCULOSKELETAL: No joint effusion. NEUROLOGIC: No change in exam. MEDICATIONS: The patient's medications have been reviewed. IMAGING STUDIES: The patient's chest x-ray has been reviewed. LABORATORY DATA: Shows white count 17.6, hemoglobin 8.3, platelet count is 49. Sodium is 140, potas sium 4.7, BUN 115, creatinine 1.42. ASSESSMENT AND PLAN: 1. Nonoliguric acute kidney injury with unknown baseline creatinine. Etiology is secondary to acute tubular necrosis due to sepsis, hemodynamics. The patient appears to be entering a maintenance phas e of acute tubular necrosis as creatinine has stabilized. The patient does have significant azotemia , which is multifactorial secondary to acute kidney injury, hypercatabolic state, steroids and diuret ic therapy. At this point, we will deescalate diuretics. Monitor urinary output and renal function closely. There is no immediate need for renal replacement therapy at this time. 2. Hyperkalemia, resolved. Continue the patient on low potassium diet. 3. Anemia. Monitor hemoglobin and hematocrit levels. 4. Mineral bone disorder. Monitor calcium and phosphorus levels. 5. Mixed acid base disorder. The patient's ABG was reviewed. Continue to monitor. 6. Hypernatremia, improved. Continue free water flushes. 7. Volume overload secondary to sepsis, capillary refill, diastolic heart failure. The patient is r esponding well to diuretic therapy. We will deescalate in the setting of worsening azotemia. 8. Sepsis, status post shock. Continue current antibiotic regimen. Cultures have been reviewed. 9. Acute cerebrovascular accident. CT scan was reviewed, showed multiple infarcts. Continue to mon itor. Follow up with neurology. 10. Ventilator-dependent respiratory failure. Vent settings and ABG was reviewed. Continue to kyra tor. 11. Dysphagia. Continue tube feeding. 12. History of peripheral vascular disease. 13. Status post hip arthroplasty. Please note, I spent over 30 minutes of critical care time with this patient. Dictated By: GENEVIEVE MENJIVAR DO NR/NTS Conf#: [id number] DID#: [id number] CC: ABDIAS STAPLES MD; BART FIORE MD;*EndCC*
--- NOTE | 2018-08-13 08:35 | RADRPT ---
Echocardiogram Report Patient Name: JATINDER RICHARDSONPatient ID: [id number] : 1945 (73y 5m)Study Date: 08/12/2018 2:47:47 PM Gender: FAccession #: [id number] Tech: GA Location: Ref.Physician: CONNER NUÑEZ Height(Cm): BSA: Weight(Kg): Quality: AdequateAccount #: Procedures: Echocardiographic Report: Transthoracic echocardiogram examination. Indications: New stroke. Findings: Left Ventricle: The left ventricular ejection fraction is visually estimated at 65 %. Atrial Septum: Normal atrial septum. Mitral Valve: Anterior mitral valve leaflet appear mildly thickened. Posterior mitral valve leaflet appear mildly thickened. Mild mitral regurgitation. Aortic Valve: Normal trileaflet aortic valve structure. Tricuspid Valve: Normal appearance of the tricuspid valve. Pericardium: Small pericardial effusion. IVC: Normal inferior vena cava appearance and respiratory collapse. Conclusions: The left ventricular ejection fraction is visually estimated at 65 %. Small pericardial effusion. Electronically Signed By: Jonathan Frost 2018-08-13 08:35:01 PST
[2018-08-13] MEDS ORDERED: FUROSEMIDE 20 MG INJ IV SCH (09:00)
[2018-08-13] MEDS: MEROPENEM 500MG/50 ML (PMX) 50 ML IVPB SCH ×2 (09:34→20:24)
[2018-08-13] MEDS: PROPOFOL 100 ML IV SCH ×2 (10:00→22:00)
--- NOTE | 2018-08-13 10:58 | CONS ---
Consult Date/Type/Reason Admit Date/Time Jul 28, 2018 at 18:16 Initial Consult Date 07/28/18 Type of Consult Pulmonary Requesting Provider: ABDIAS STAPLES MD Date/Time of Note DATE: 08/13/18 TIME: 10:56 Subjective Remains unresponsive off sedation. Continues fentanyl for pain control. No seizure activity. PEEP decreased from 10-5. Objective Vital Signs Date Temp Pulse Resp B/P (MAP) Pulse Ox O2 O2 Flow FiO2 Time Delivery Rate 08/13/18 87 24 128/44 98 10:30 (72) 08/13/18 Mechanical 10:00 Ventilator 08/13/18 40 09:00 08/13/18 98.4 08:00 Intake and Output 08/12/18 08/12/18 08/13/18 1515:00 23:00 07:00 IntakeIntake Total 718 ml 702 ml 698 ml OutputOutput Total 1625 ml 1675 ml 1675 ml BalanceBalance -907 ml -973 ml -977 ml Exam PHYSICAL EXAMINATION GENERAL: Frail elderly lady orally intubated. VITAL SIGNS: see below. HEENT: Pupils equal, round, and reactive to light. CARDIAC: S1, S2, 1/6 systolic ejection murmur CHEST: Diminished air entry bilaterally. ABDOMEN: Mildly distended. Bowel sounds present no guarding or rebound EXTREMITIES: No cyanosis, clubbing edema +1 NEUROLOGIC: Generalized weakness, unable to assess Vent Setting Ventilator Support Mode: AC Fraction of Inspired Oxygen pe: 40 Positive End Expiratory Pressu: 5.0 Results/Medications Result Diagram: 08/13/18 0500 08/13/18 0500 Results 24 hrs Laboratory Tests Test 08/12/18 14:54 08/13/18 05:00 08/13/18 07:00 Erythrocyte Sedimentation Rate 10 Triglycerides Level 143 Cholesterol Level 101 LDL Cholesterol, Calculated 50 HDL Cholesterol 22 L Cholesterol/HDL Ratio 4.5 White Blood Count 17.6 H Red Blood Count 2.63 L Hemoglobin 8.3 L Hematocrit 25.4 L Mean Corpuscular Volume 96.6 Mean Corpuscular Hemoglobin 31.6 Mean Corpuscular 32.7 Hemoglobin Concent Red Cell Distribution Width 19.2 H Platelet Count 49 L Mean Platelet Volume 12.9 H Immature Granulocytes % 1.500 H Neutrophils % 91.3 H Lymphocytes % 4.6 L Monocytes % 2.1 Eosinophils % 0.4 Basophils % 0.1 Nucleated Red Blood Cells % 0.0 Immature Granulocytes # 0.260 H Neutrophils # 16.1 H Lymphocytes # 0.8 Monocytes # 0.4 Eosinophils # 0.1 Basophils # 0.0 Nucleated Red Blood Cells # 0.0 Sodium Level 140 Potassium Level 4.7 Chloride Level 105 Carbon Dioxide Level 26 Anion Gap 9 Blood Urea Nitrogen 115 H Creatinine 1.42 H Est Glomerular Filtrat Rate mL/min Glucose Level 119 Calcium Level 8.6 Phosphorus Level 4.5 Magnesium Level 2.4 Blood Gas Specimen Source Blood arterial Arterial Blood Date Drawn 08/13/2018 7:03:09 AM Arterial Blood pH 7.412 (Temp corrected) Arterial Blood pCO2 40.1 (Temp correct) Arterial Blood pO2 104.7 H (Temp corrected) Arterial Blood HCO3 25.0 Arterial Blood Base Excess 0.4 Arterial Blood 97.1 Oxygen Saturation Vick Test ACCEPTAB Arterial Blood Gas Right Radial Puncture Site Arterial 0.3 Blood Carboxyhemoglobin Arterial Blood Methemoglobin 0.2 Blood Gas A-a O2 Differential 134.4 H Oxyhemoglobin Percent 96.6 Blood Gas Temperature 37.0 Blood Gas Respiration Rate 24.0 Blood Gas Actual 24 Respiration Rate Blood Gas Modality VENT - AC FiO2 40.0 Blood Gas Tidal Volume 500.0 Blood Gas Low PEEP Setting 10.0 Blood Gas Notified Whom TM Blood Gas Notified Time 08/13/2018 7:38:01 AM Medications Current Medications Vancomycin HCl (Vanco Iv Per Pharmacy) VANCOMYCIN PER PHARMACY PER PROTOCOL XX ; Start 07/28/18 at 17:30 Albuterol/ Ipratropium (Duoneb) 3 ml Q6H RESP THERAPY HHN Last administered on 08/02/18 01:07; Admin Dose 3 ML; Start 07/28/18 at 20:00; Status Hold Calcium/Vitamin D (Oyster Shell/ Vit-D (500/200)) 1 tab BID PO Last administered on 08/13/18 08:09; Admin Dose 1 TAB; Start 07/28/18 at 21:00 Clonazepam (Klonopin) 0.5 mg BID PRN PO ANXIETY Last administered on 08/04/18 21:00; Admin Dose 0.5 MG; Start 07/28/18 at 21:00 Clonidine (Catapres) 0.1 mg TID PRN PO ELEVATED BLOOD PRESSURE Last administered on 08/12/18 22:34; Admin Dose 0.1 MG; Start 07/28/18 at 21:00 Hydromorphone HCl (Dilaudid) 2 mg Q4H PRN PO SEVERE PAIN LEVEL 7-10 Last administered on 08/01/18 23:34; Admin Dose 2 MG; Start 07/28/18 at 21:00 Docusate Sodium (Colace) 100 mg BID PRN PO CONSTIPATION; Start 07/28/18 at 21:00 Gabapentin (Neurontin) 200 mg BID PO Last administered on 08/13/18 08:09; Admin Dose 200 MG; Start 07/28/18 at 21:00 Magnesium Hydroxide (Milk Of Mag) 30 ml DAILY PRN PO CONSTIPATION; Start 07/28/18 at 21:00 Acetaminophen/ Hydrocodone Bitart ([place] (10325)) 1 tab Q4H PRN PO MODERATE PAIN LEVEL 4-6 Last administered on 08/01/18 21:02; Admin Dose 1 TAB; Start 07/28/18 at 21:00 Carisoprodol (Soma) 350 mg BID PRN PO MUSCLE SPASMS; Start 07/28/18 at 21:00 Trazodone HCl (Desyrel) 50 mg HS PRN PO INSOMNIA Last administered on 07/29/18 20:29; Admin Dose 50 MG; Start 07/28/18 at 21:00 Ondansetron HCl (Zofran Inj) 4 mg Q6H PRN IV NAUSEA AND/OR VOMITING; Start 07/28/18 at 21:00 Methylprednisolone Sodium Succinate (Solu-Medrol) 40 mg DAILY IV Last administered on 08/13/18 08:02; Admin Dose 40 MG; Start 07/29/18 at 09:00 Ascorbic Acid (Vitamin C) 500 mg TID PO Last administered on 08/13/18 08:09; Admin Dose 500 MG; Start 07/29/18 at 09:00 Lorazepam (Ativan) 0.5 mg Q6H PRN PO ANXIETY Last administered on 08/10/18 21:28; Admin Dose 0.5 MG; Start 07/29/18 at 20:30 Guaifenesin/ Dextromethorphan (Robitussin Dm Liquid Cup) 5 ml Q4H PRN PO COUGH Last administered on 1/26/19at 16:32; Admin Dose 5 ML; Start 07/29/18 at 20:30 Diltiazem HCl 125 ml @ 5 mls/hr TITRATE IV Last administered on 07/30/18 09:40; Admin Dose 5 MLS/HR; Start 07/30/18 at 09:00; Status Hold Dronedarone (Multaq) 400 mg BID WITH MEALS PO Last administered on 08/13/18 08:09; Admin Dose 400 MG; Start 07/30/18 at 09:30 Propofol 100 ml @ 1.986 mls/ hr Q12H IV Last administered on 08/05/18 06:36; Admin Dose 11.916 MLS/HR; Start 08/02/18 at 10:00 Albuterol (Ventolin Hfa) 4 puff Q6H RESP THERAPY INH Last administered on 08/13/18 08:55; Admin Dose 4 PUFF; Start 08/02/18 at 14:00 Ipratropium [place] (Atrovent Hfa) 4 puff Q6H RESP THERAPY INH Last administered on 08/13/18 08:56; Admin Dose 4 PUFF; Start 08/02/18 at 14:00 Acetaminophen (Tylenol Liquid) 650 mg Q6H PRN GTB MILD PAIN (1-3) OR TEMPERATURE Last administered on 08/12/18 08:13; Admin Dose 650 MG; Start 08/03/18 at 09:30 Docusate Sodium (Colace Liquid Cup) 100 mg BID PRN GTB CONSTIPATION,,,,; Start 08/03/18 at 09:30 IV Flush (NS 10 ml) 10 ml PRN PRN IV IV PROTOCOL; Start 08/03/18 at 10:30 Fentanyl 100 ml @ 2.5 mls/hr TITRATE IV Last administered on 08/13/18 04:33; Admin Dose 2.5 MLS/HR; Start 08/04/18 at 09:00 Lansoprazole (Prevacid) 30 mg DAILY@06 GTB Last administered on 08/13/18 05:28; Admin Dose 30 MG; Start 08/05/18 at 06:00 Midazolam HCl 50 ml @ 1 mls/hr TITRATE IV Last administered on 08/12/18 21:13; Admin Dose 2 MLS/HR; Start 08/05/18 at 12:00 Norepinephrine 250 ml @ 1.875 mls/ hr TITRATE IV Last administered on 08/05/18 13:00; Admin Dose 30 MLS/HR; Start 08/05/18 at 13:00 Phenylephrine HCl 80 mg/Dextrose 250 ml @ 18.75 mls/ hr TITRATE IV Last administered on 08/09/18 01:42; Admin Dose 6.56 MLS/HR; Start 08/06/18 at 15:30 Levofloxacin/ Dextrose 50 ml @ 50 mls/hr DAILY IVPB Last administered on 08/13/18 08:05; Admin Dose 50 MLS/HR; Start 08/08/18 at 09:00 Vancomycin/Sodium Chloride 250 ml @ 125 mls/hr Q72H IVPB Last administered on 08/11/18 11:12; Admin Dose 125 MLS/HR; Start 08/11/18 at 11:00 Atorvastatin Calcium (Lipitor) 10 mg HS NGT Last administered on 08/12/18 21:01; Admin Dose 10 MG; Start 08/12/18 at 21:00 Meropenem/Sodium Chloride 50 ml @ 100 mls/hr Q12 IVPB Last administered on 08/13/18 09:34; Admin Dose 100 MLS/HR; Start 08/12/18 at 21:00 Furosemide (Lasix) 20 mg DAILY IV Last administered on 08/13/18 08:03; Admin Dose 20 MG; Start 08/13/18 at 09:00 Assessment/Plan Hospital Course (Demo Recall) Assessment 1. Acute CVA with encephalopathy 2. Acute on chronic hypoxemic respiratory failure with ongoing bilateral infiltrates 3. Renal insufficiency 4. Severe sepsis likely secondary to pneumonia 5. A. fib with RVR Plan 1. Continue supportive care 2. Palliative care evaluation and input his overall prognosis is extremely poor Long discussion with family at bedside. Explained extremely poor prognosis given extensive CVA. In addition patient remains vent dependent and to continue care as she would likely remain vent dependent for her rest of her life given her extensive neurological injuries. Family state that this is not a quality of life that the patient would have chosen for herself. In keeping with this CODE STATUS has been changed to DNR and family are considering terminal extubation for this weekend. Critical care 40 minutes CARRINGTON LANDIN MD, [facility] Aug 13, 2018 10:58
--- NOTE | 2018-08-13 13:33 | CONS ---
Assessment/Plan Assessment/Plan Hospital Course (Demo Recall) No acute events overnight, no fevers patient is chemical code now, unresponsive looks comfortable WBC 17.6 H&H 8.3 and 25.4 platelets 49 neutrophils 91.3 BUN 115 creatinine 1.42 Indwelling: Endotracheal tube, NG tube, [place], PICC line Microbiology: Sputum culture on August 06 grew MRSA and Ivania albicans Antimicrobials: Vancomycin, Levaquin, fluconazole Merrem Allergies: Penicillin, tetracycline Physical examination: This is a fragile chronically ill-appearing wasted elderly woman who is in no distress. Head atraumatic normocephalic sclera nonicteric. Neck is supple. Chest rise symmetrical breath sounds diminished bases. Heart: S1-S2. Abdomen soft bowel sounds present extremities without cyanosis. Assessment: 1. Severe sepsis, status post shock 2. Acute on chronic respiratory failure, status post intubation 08/02/18 3. Healthcare associated pneumonia/ARDS 4. Coag negative staph bacteremia, possibly contaminant 5. Anemia with progressive thrombocytopenia 6. ARF 5. Peripheral arterial disease status post stent 6. Pancreatic head mass, patient is following with a specialist yearly 7. Recent right hip fracture status post surgical intervention 8. Encephalopathy, acute Plan: Remains unchanged, continue antibiotics, follow repeat cultures, possible transition to comfort care focus. This DC Linda Consultation Date/Type/Reason Admit Date/Time Jul 28, 2018 at 18:16 Initial Consult Date 07/28/18 Type of Consult id Requesting Provider: ABDIAS STAPLES MD Date/Time of Note DATE: 08/13/18 TIME: 13:32 Exam/Review of Systems Exam Vitals Vital Signs Date Temp Pulse Resp B/P (MAP) Pulse Ox O2 O2 Flow FiO2 Time Delivery Rate 08/13/18 95 12:00 08/13/18 24 130/46 99 Mechanical 11:00 (74) Ventilator 08/13/18 40 09:00 08/13/18 98.4 08:00 Intake and Output 08/12/18 08/12/18 08/13/18 1515:00 23:00 07:00 IntakeIntake Total 718 ml 702 ml 698 ml OutputOutput Total 1625 ml 1675 ml 1675 ml BalanceBalance -907 ml -973 ml -977 ml Results Result Diagram: 08/13/18 0500 08/13/18 0500 Results 24hrs Laboratory Tests Test 08/12/18 14:54 08/13/18 05:00 08/13/18 07:00 Erythrocyte Sedimentation Rate 10 Triglycerides Level 143 Cholesterol Level 101 LDL Cholesterol, Calculated 50 HDL Cholesterol 22 L Cholesterol/HDL Ratio 4.5 White Blood Count 17.6 H Red Blood Count 2.63 L Hemoglobin 8.3 L Hematocrit 25.4 L Mean Corpuscular Volume 96.6 Mean Corpuscular Hemoglobin 31.6 Mean Corpuscular 32.7 Hemoglobin Concent Red Cell Distribution Width 19.2 H Platelet Count 49 L Mean Platelet Volume 12.9 H Immature Granulocytes % 1.500 H Neutrophils % 91.3 H Lymphocytes % 4.6 L Monocytes % 2.1 Eosinophils % 0.4 Basophils % 0.1 Nucleated Red Blood Cells % 0.0 Immature Granulocytes # 0.260 H Neutrophils # 16.1 H Lymphocytes # 0.8 Monocytes # 0.4 Eosinophils # 0.1 Basophils # 0.0 Nucleated Red Blood Cells # 0.0 Sodium Level 140 Potassium Level 4.7 Chloride Level 105 Carbon Dioxide Level 26 Anion Gap 9 Blood Urea Nitrogen 115 H Creatinine 1.42 H Est Glomerular Filtrat Rate mL/min Glucose Level 119 Calcium Level 8.6 Phosphorus Level 4.5 Magnesium Level 2.4 Blood Gas Specimen Source Blood arterial Arterial Blood Date Drawn 08/13/2018 7:03:09 AM Arterial Blood pH 7.412 (Temp corrected) Arterial Blood pCO2 40.1 (Temp correct) Arterial Blood pO2 104.7 H (Temp corrected) Arterial Blood HCO3 25.0 Arterial Blood Base Excess 0.4 Arterial Blood 97.1 Oxygen Saturation Vick Test ACCEPTAB Arterial Blood Gas Right Radial Puncture Site Arterial 0.3 Blood Carboxyhemoglobin Arterial Blood Methemoglobin 0.2 Blood Gas A-a O2 Differential 134.4 H Oxyhemoglobin Percent 96.6 Blood Gas Temperature 37.0 Blood Gas Respiration Rate 24.0 Blood Gas Actual 24 Respiration Rate Blood Gas Modality VENT - AC FiO2 40.0 Blood Gas Tidal Volume 500.0 Blood Gas Low PEEP Setting 10.0 Blood Gas Notified Whom TM Blood Gas Notified Time 08/13/2018 7:38:01 AM Medications Medication Current Medications Vancomycin HCl (Vanco Iv Per Pharmacy) VANCOMYCIN PER PHARMACY PER PROTOCOL XX ; Start 07/28/18 at 17:30 Albuterol/ Ipratropium (Duoneb) 3 ml Q6H RESP THERAPY HHN Last administered on 08/02/18 01:07; Admin Dose 3 ML; Start 07/28/18 at 20:00; Status Hold Calcium/Vitamin D (Oyster Shell/ Vit-D (500/200)) 1 tab BID PO Last administered on 08/13/18 08:09; Admin Dose 1 TAB; Start 07/28/18 at 21:00 Clonazepam (Klonopin) 0.5 mg BID PRN PO ANXIETY Last administered on 08/04/18 21:00; Admin Dose 0.5 MG; Start 07/28/18 at 21:00 Clonidine (Catapres) 0.1 mg TID PRN PO ELEVATED BLOOD PRESSURE Last administered on 08/12/18 22:34; Admin Dose 0.1 MG; Start 07/28/18 at 21:00 Hydromorphone HCl (Dilaudid) 2 mg Q4H PRN PO SEVERE PAIN LEVEL 7-10 Last administered on 08/01/18 23:34; Admin Dose 2 MG; Start 07/28/18 at 21:00 Docusate Sodium (Colace) 100 mg BID PRN PO CONSTIPATION; Start 07/28/18 at 21:00 Gabapentin (Neurontin) 200 mg BID PO Last administered on 08/13/18 08:09; Admin Dose 200 MG; Start 07/28/18 at 21:00 Magnesium Hydroxide (Milk Of Mag) 30 ml DAILY PRN PO CONSTIPATION; Start 07/28/18 at 21:00 Acetaminophen/ Hydrocodone Bitart ([place] (10/325)) 1 tab Q4H PRN PO MODERATE PAIN LEVEL 4-6 Last administered on 08/01/18 21:02; Admin Dose 1 TAB; Start 07/28/18 at 21:00 Carisoprodol (Soma) 350 mg BID PRN PO MUSCLE SPASMS; Start 07/28/18 at 21:00 Trazodone HCl (Desyrel) 50 mg HS PRN PO INSOMNIA Last administered on 07/29/18 20:29; Admin Dose 50 MG; Start 07/28/18 at 21:00 Ondansetron HCl (Zofran Inj) 4 mg Q6H PRN IV NAUSEA AND/OR VOMITING; Start 07/28/18 at 21:00 Methylprednisolone Sodium Succinate (Solu-Medrol) 40 mg DAILY IV Last administered on 08/13/18 08:02; Admin Dose 40 MG; Start 07/29/18 at 09:00 Ascorbic Acid (Vitamin C) 500 mg TID PO Last administered on 08/13/18 12:45; Admin Dose 500 MG; Start 07/29/18 at 09:00 Lorazepam (Ativan) 0.5 mg Q6H PRN PO ANXIETY Last administered on 08/10/18 21:28; Admin Dose 0.5 MG; Start 07/29/18 at 20:30 Guaifenesin/ Dextromethorphan (Robitussin Dm Liquid Cup) 5 ml Q4H PRN PO COUGH Last administered on 08/01/18 16:32; Admin Dose 5 ML; Start 07/29/18 at 20:30 Diltiazem HCl 125 ml @ 5 mls/hr TITRATE IV Last administered on 07/30/18 09:40; Admin Dose 5 MLS/HR; Start 07/30/18 at 09:00; Status Hold Dronedarone (Multaq) 400 mg BID WITH MEALS PO Last administered on 08/13/18 08:09; Admin Dose 400 MG; Start 07/30/18 at 09:30 Propofol 100 ml @ 1.986 mls/ hr Q12H IV Last administered on 08/05/18 06:36; Admin Dose 11.916 MLS/HR; Start 08/02/18 at 10:00 Albuterol (Ventolin Hfa) 4 puff Q6H RESP THERAPY INH Last administered on 08/13/18 08:55; Admin Dose 4 PUFF; Start 08/02/18 at 14:00 Ipratropium [place] (Atrovent Hfa) 4 puff Q6H RESP THERAPY INH Last a dministered on 08/13/18 08:56; Admin Dose 4 PUFF; Start 08/02/18 at 14:00 Acetaminophen (Tylenol Liquid) 650 mg Q6H PRN GTB MILD PAIN (1-3) OR TEMPERATURE Last administered on 08/12/18 08:13; Admin Dose 650 MG; Start 08/03/18 at 09:30 Docusate Sodium (Colace Liquid Cup) 100 mg BID PRN GTB CONSTIPATION,,,,; Start 08/03/18 at 09:30 IV Flush (NS 10 ml) 10 ml PRN PRN IV IV PROTOCOL; Start 08/03/18 at 10:30 Fentanyl 100 ml @ 2.5 mls/hr TITRATE IV Last administered on 08/13/18 04:33; Admin Dose 2.5 MLS/HR; Start 08/04/18 at 09:00 Lansoprazole (Prevacid) 30 mg DAILY@06 GTB Last administered on 08/13/18 05:28; Admin Dose 30 MG; Start 08/05/18 at 06:00 Midazolam HCl 50 ml @ 1 mls/hr TITRATE IV Last administered on 08/12/18 21:13; Admin Dose 2 MLS/HR; Start 08/05/18 at 12:00 Norepinephrine 250 ml @ 1.875 mls/ hr TITRATE IV Last administered on 08/05/18 13:00; Admin Dose 30 MLS/HR; Start 08/05/18 at 13:00 Phenylephrine HCl 80 mg/Dextrose 250 ml @ 18.75 mls/ hr TITRATE IV Last administered on 08/09/18 01:42; Admin Dose 6.56 MLS/HR; Start 08/06/18 at 15:30 Levofloxacin/ Dextrose 50 ml @ 50 mls/hr DAILY IVPB Last administered on 08/13/18 08:05; Admin Dose 50 MLS/HR; Start 08/08/18 at 09:00 Vancomycin/Sodium Chloride 250 ml @ 125 mls/hr Q72H IVPB Last administered on 08/11/18 11:12; Admin Dose 125 MLS/HR; Start 08/11/18 at 11:00 Atorvastatin Calcium (Lipitor) 10 mg HS NGT Last administered on 08/12/18 21:01; Admin Dose 10 MG; Start 08/12/18 at 21:00 Meropenem/Sodium Chloride 50 ml @ 100 mls/hr Q12 IVPB Last administered on 08/13/18 09:34; Admin Dose 100 MLS/HR; Start 08/12/18 at 21:00 Furosemide (Lasix) 20 mg DAILY IV Last administered on 08/13/18 08:03; Admin Dose 20 MG; Start 08/13/18 at 09:00 ANDREW SMTIH NP Aug 13, 2018 13:33
--- NOTE | 2018-08-13 15:10 | CONS ---
Assessment/Plan Assessment/Plan Hospital Course 73 yo F with multiple cerebrovascular risk factors who presents with acute respiratory failure, requiring emergent intubation. It was noted that pt was unresponsive after sedation was held... for which neurology is consulted. She is reported to have had multiple episodes of paroxysmal atrial fibrillation over the past few days, which raised clinical suspicion for stroke. CTH confirmed multiple large acute infarcts b/l... EEG is without epileptiform activity to suggest superimposed subclinical seizure. Echo is unrevealing. CUS is most notable for 50-69% R ICA stenosis. P: Cont asa daily for stroke prevention Hold Lipitor (LDL is within goal < 70) Hold sedating medications where possible Other medical management per primary Will follow clinically Consultation Date/Type/Reason Admit Date/Time Jul 28, 2018 at 18:16 Type of Consult Neurology Reason for Consultation ams Requesting Provider: ABDIAS STAPLES MD Date/Time of Note DATE: 08/13/18 TIME: 15:10 24 HR Interval Summary Free Text/Dictation Continues critical care. Pt reportedly went into afib earlier, requiring increased sedation. On fentanyl gtt.. Family changed code status to chemical code. Subjective hx not possible: pt non-verbal, pt critical status Exam Vital Signs Vitals Vital Signs Date Temp Pulse Resp B/P (MAP) Pulse Ox O2 O2 Flow FiO2 Time Delivery Rate 08/13/18 100 22 146/46 99 Mechanical 14:00 (79) Ventilator 08/13/18 98.5 12:00 08/13/18 40 09:00 Intake and Output 08/12/18 08/12/18 08/13/18 1515:00 23:00 07:00 IntakeIntake Total 718 ml 702 ml 698 ml OutputOutput Total 1625 ml 1675 ml 1675 ml BalanceBalance -907 ml -973 ml -977 ml Exam PE: Gen Appearance: No Apparent Distress HEENT: Intubated; has NGT Cardiovascular: Regular rate Abdomen: Soft Extremities: Dry NE: The patient was comatose. Cranial nerve examination was limited by mental status. Pupils were equal and sluggishly reactive to light. There was no afferent pupillary defect. Funduscopic examination was limited. Face was grossly symmetric, w/ present corneal reflexes. Tone was normal. Muscle bulk was normal. I did not see fasciculations. The patient minimally withdrew RLE to noxious stimulation; did not withdraw to noxious stimuli in the other extremities. Coordination and gait testing was limited by mental status. Arm and leg reflexes were symmetric. Connell's sign was absent. Plantar responses were mute. CONNER NUÑEZ NP Aug 13, 2018 15:10
--- NOTE | 2018-08-13 16:26 | PN ---
Date/Time of Note Date/Time of Note DATE: 08/13/18 TIME: 16:24 Assessment/Plan VTE Prophylaxis Risk score (from Ns)>0 risk: 14 SCD applied (from Ns): Yes Pharmacological prophylaxis: NA/contraindicated Pharm contraindication: bleeding Lines/Catheters IV Catheter Type (from Nrsg): PICC Line Central line still needed: Yes Urinary Cath still in place: Yes Reason Cath still needed: urinary retention Assessment/Plan Hospital Course Patient changes on ventilatory support, fentanyl drip for pain, nonresponsive. Pending family decision regarding goals of care. Assessment/Plan - Supratentorial and infratentorial subacute infarcts, with minimal 1.3 mm [id number] midline shift. EEG revealed abnormal EEG due to severe diffuse slowing, no epileptiform discharges were seen. Dr. Barnes is following in neurology consultation. - Acute hypoxemic respiratory failure due to healthcare-acquired pneumonia/ ARDS. Continue ventilatory support, steroids. from pulmonary standpoint. - Anemia of acute blood loss secondary to nosebleed admission, resolved. status post blood transfusion, continue to monitor hemoglobin and hematocrit. - Sepsis with gram-positive bacteremia. Continue antibiotics per ID. Dr. Brown is following in infection disease consultation. - Bilateral pulmonary fibrosis. Continue supplemental oxygen and symptomatic treatment with steroids. - Chronic obstructive pulmonary disease. Continue DuoNeb and steroids. - Nonobstructive coronary artery disease as per cardiac catheterization in 2013. Dr. Frost is following from cardiac standpoint. - Paroxysmal atrial fibrillation. Patient had an episode of atrial fibrillation with rapid ventricular response and was on Cardizem drip, currently in sinus rhythm. - Hypertension. Continue metoprolol and Lasix. p.r.n. clonidine. - Peripheral artery disease, status post stent. - Dyslipidemia. Continue Lipitor. - MARQUES, Dr. Salazar from nephrology standpoint. - Recent right hip fracture, status post surgery. - Pancreatic head mass. As per patient, she has been going to a specialist every year for followup. - Anxiety and depression. - Poor prognosis, Dr. Greenwood is following in palliative services consultation. Critical care time spent more than 30 minutes. Further recommendations based on clinical course. Plan of care discussed with Dr. Pack. Result Diagram: 08/13/18 0500 08/13/18 0500 Results 24hrs Laboratory Tests Test 08/13/18 05:00 08/13/18 07:00 White Blood Count 17.6 H Red Blood Count 2.63 L Hemoglobin 8.3 L Hematocrit 25.4 L Mean Corpuscular Volume 96.6 Mean Corpuscular Hemoglobin 31.6 Mean Corpuscular Hemoglobin Concent 32.7 Red Cell Distribution Width 19.2 H Platelet Count 49 L Mean Platelet Volume 12.9 H Immature Granulocytes % 1.500 H Neutrophils % 91.3 H Lymphocytes % 4.6 L Monocytes % 2.1 Eosinophils % 0.4 Basophils % 0.1 Nucleated Red Blood Cells % 0.0 Immature Granulocytes # 0.260 H Neutrophils # 16.1 H Lymphocytes # 0.8 Monocytes # 0.4 Eosinophils # 0.1 Basophils # 0.0 Nucleated Red Blood Cells # 0.0 Sodium Level 140 Potassium Level 4.7 Chloride Level 105 Carbon Dioxide Level 26 Anion Gap 9 Blood Urea Nitrogen 115 H Creatinine 1.42 H Est Glomerular Filtrat Rate mL/min Glucose Level 119 Calcium Level 8.6 Phosphorus Level 4.5 Magnesium Level 2.4 Blood Gas Specimen Source Blood arterial Arterial Blood Date Drawn 08/13/2018 7:03:09 AM Arterial Blood pH (Temp corrected) 7.412 Arterial Blood pCO2 (Temp correct) 40.1 Arterial Blood pO2 (Temp corrected) 104.7 H Arterial Blood HCO3 25.0 Arterial Blood Base Excess 0.4 Arterial Blood Oxygen Saturation 97.1 Vick Test ACCEPTAB Arterial Blood Gas Puncture Site Right Radial Arterial Blood Carboxyhemoglobin 0.3 Arterial Blood Methemoglobin 0.2 Blood Gas A-a O2 Differential 134.4 H Oxyhemoglobin Percent 96.6 Blood Gas Temperature 37.0 Blood Gas Respiration Rate 24.0 Blood Gas Actual Respiration Rate 24 Blood Gas Modality VENT - AC FiO2 40.0 Blood Gas Tidal Volume 500.0 Blood Gas Low PEEP Setting 10.0 Blood Gas Notified Whom TM Blood Gas Notified Time 08/13/2018 7:38:01 AM Exam/Review of Systems Exam Vitals Vital Signs Date Temp Pulse Resp B/P (MAP) Pulse Ox O2 O2 Flow FiO2 Time Delivery Rate 08/13/18 97.6 75 24 109/39 97 Mechanical 16:00 (62) Ventilator 08/13/18 40 15:40 Intake and Output 08/12/18 08/12/18 08/13/18 1515:00 23:00 07:00 IntakeIntake Total 718 ml 702 ml 698 ml OutputOutput Total 1625 ml 1675 ml 1675 ml BalanceBalance -907 ml -973 ml -977 ml Exam Constitutional: frail, other (Orally intubated) ENMT: other (OGT) Neck: supple Respiratory: diminished breath sounds Gastrointestinal: soft, non-tender Extremities: normal pulses Neurological: other (non-responsive) Results Results 24hrs Laboratory Tests Test 08/13/18 05:00 08/13/18 07:00 White Blood Count 17.6 H Red Blood Count 2.63 L Hemoglobin 8.3 L Hematocrit 25.4 L Mean Corpuscular Volume 96.6 Mean Corpuscular Hemoglobin 31.6 Mean Corpuscular Hemoglobin Concent 32.7 Red Cell Distribution Width 19.2 H Platelet Count 49 L Mean Platelet Volume 12.9 H Immature Granulocytes % 1.500 H Neutrophils % 91.3 H Lymphocytes % 4.6 L Monocytes % 2.1 Eosinophils % 0.4 Basophils % 0.1 Nucleated Red Blood Cells % 0.0 Immature Granulocytes # 0.260 H Neutrophils # 16.1 H Lymphocytes # 0.8 Monocytes # 0.4 Eosinophils # 0.1 Basophils # 0.0 Nucleated Red Blood Cells # 0.0 Sodium Level 140 Potassium Level 4.7 Chloride Level 105 Carbon Dioxide Level 26 Anion Gap 9 Blood Urea Nitrogen 115 H Creatinine 1.42 H Est Glomerular Filtrat Rate mL/min Glucose Level 119 Calcium Level 8.6 Phosphorus Level 4.5 Magnesium Level 2.4 Blood Gas Specimen Source Blood arterial Arterial Blood Date Drawn 08/13/2018 7:03:09 AM Arterial Blood pH (Temp corrected) 7.412 Arterial Blood pCO2 (Temp correct) 40.1 Arterial Blood pO2 (Temp corrected) 104.7 H Arterial Blood HCO3 25.0 Arterial Blood Base Excess 0.4 Arterial Blood Oxygen Saturation 97.1 Vick Test ACCEPTAB Arterial Blood Gas Puncture Site Right Radial Arterial Blood Carboxyhemoglobin 0.3 Arterial Blood Methemoglobin 0.2 Blood Gas A-a O2 Differential 134.4 H Oxyhemoglobin Percent 96.6 Blood Gas Temperature 37.0 Blood Gas Respiration Rate 24.0 Blood Gas Actual Respiration Rate 24 Blood Gas Modality VENT - AC FiO2 40.0 Blood Gas Tidal Volume 500.0 Blood Gas Low PEEP Setting 10.0 Blood Gas Notified Whom TM Blood Gas Notified Time 08/13/2018 7:38:01 AM Medications Medication Current Medications Vancomycin HCl (Vanco Iv Per Pharmacy) VANCOMYCIN PER PHARMACY PER PROTOCOL XX ; Start 07/28/18 at 17:30 Albuterol/ Ipratropium (Duoneb) 3 ml Q6H RESP THERAPY HHN Last administered on 08/02/18 01:07; Admin Dose 3 ML; Start 07/28/18 at 20:00; Status Hold Calcium/Vitamin D ([place]/ Vit-D (500/200)) 1 tab BID PO Last administered on 08/13/18 08:09; Admin Dose 1 TAB; Start 07/28/18 at 21:00 Clonazepam (Klonopin) 0.5 mg BID PRN PO ANXIETY Last administered on 08/04/18 21:00; Admin Dose 0.5 MG; Start 07/28/18 at 21:00 Clonidine (Catapres) 0.1 mg TID PRN PO ELEVATED BLOOD PRESSURE Last administere d on 08/13/18 14:58; Admin Dose 0.1 MG; Start 07/28/18 at 21:00 Hydromorphone HCl (Dilaudid) 2 mg Q4H PRN PO SEVERE PAIN LEVEL 7-10 Last administered on 08/01/18 23:34; Admin Dose 2 MG; Start 07/28/18 at 21:00 Docusate Sodium (Colace) 100 mg BID PRN PO CONSTIPATION; Start 07/28/18 at 21:00 Gabapentin (Neurontin) 200 mg BID PO Last administered on 08/13/18 08:09; Admin Dose 200 MG; Start 07/28/18 at 21:00 Magnesium Hydroxide (Milk Of Mag) 30 ml DAILY PRN PO CONSTIPATION; Start 07/28/18 at 21:00 Acetaminophen/ Hydrocodone Bitart ([place] (10/325)) 1 tab Q4H PRN PO MODERATE PAIN LEVEL 4-6 Last administered on 08/01/18 21:02; Admin Dose 1 TAB; Start 07/28/18 at 21:00 Carisoprodol (Soma) 350 mg BID PRN PO MUSCLE SPASMS; Start 07/28/18 at 21:00 Trazodone HCl (Desyrel) 50 mg HS PRN PO INSOMNIA Last administered on 07/29/18 20:29; Admin Dose 50 MG; Start 07/28/18 at 21:00 Ondansetron HCl (Zofran Inj) 4 mg Q6H PRN IV NAUSEA AND/OR VOMITING; Start 07/28/18 at 21:00 Methylprednisolone Sodium Succinate (Solu-Medrol) 40 mg DAILY IV Last administered on 08/13/18 08:02; Admin Dose 40 MG; Start 07/29/18 at 09:00 Ascorbic Acid (Vitamin C) 500 mg TID PO Last administered on 08/13/18 12:45; Admin Dose 500 MG; Start 07/29/18 at 09:00 Lorazepam (Ativan) 0.5 mg Q6H PRN PO ANXIETY Last administered on 08/10/18 21:28; Admin Dose 0.5 MG; Start 07/29/18 at 20:30 Guaifenesin/ Dextromethorphan (Robitussin Dm Liquid Cup) 5 ml Q4H PRN PO COUGH Last administered on 08/01/18 16:32; Admin Dose 5 ML; Start 07/29/18 at 20:30 Diltiazem HCl 125 ml @ 5 mls/hr TITRATE IV Last administered on 07/30/18 09:40; Admin Dose 5 MLS/HR; Start 07/30/18 at 09:00; Status Hold Dronedarone (Multaq) 400 mg BID WITH MEALS PO Last administered on 08/13/18 08:09; Admin Dose 400 MG; Start 07/30/18 at 09:30 Propofol 100 ml @ 1.986 mls/ hr Q12H IV Last administered on 08/05/18 06:36; Admin Dose 11.916 MLS/HR; Start 08/02/18 at 10:00 Albuterol (Ventolin Hfa) 4 puff Q6H RESP THERAPY INH Last administered on 08/13/18 13:10; Admin Dose 4 PUFF; Start 08/02/18 at 14:00 Ipratropium [place] (Atrovent Hfa) 4 puff Q6H RESP THERAPY INH Last administered on 08/13/18 13:10; Admin Dose 4 PUFF; Start 08/02/18 at 14:00 Acetaminophen (Tylenol Liquid) 650 mg Q6H PRN GTB MILD PAIN (1-3) OR TEMPERATURE Last administered on 08/12/18 08:13; Admin Dose 650 MG; Start 08/03/18 at 09:30 Docusate Sodium (Colace Liquid Cup) 100 mg BID PRN GTB CONSTIPATION,,,,; Start 08/03/18 at 09:30 IV Flush (NS 10 ml) 10 ml PRN PRN IV IV PROTOCOL; Start 08/03/18 at 10:30 Fentanyl 100 ml @ 2.5 mls/hr TITRATE IV Last administered on 08/13/18 04:33; Admin Dose 2.5 MLS/HR; Start 08/04/18 at 09:00 Lansoprazole (Prevacid) 30 mg DAILY@06 GTB Last administered on 08/13/18 05:28; Admin Dose 30 MG; Start 08/05/18 at 06:00 Midazolam HCl 50 ml @ 1 mls/hr TITRATE IV Last administered on 08/12/18at 21:13; Admin Dose 2 MLS/HR; Start 08/05/18 at 12:00 Norepinephrine 250 ml @ 1.875 mls/ hr TITRATE IV Last administered on 08/05/18at 13:00; Admin Dose 30 MLS/HR; Start 08/05/18 at 13:00 Phenylephrine HCl 80 mg/Dextrose 250 ml @ 18.75 mls/ hr TITRATE IV Last administered on 08/09/18 01:42; Admin Dose 6.56 MLS/HR; Start 08/06/18 at 15:30 Vancomycin/Sodium Chloride 250 ml @ 125 mls/hr Q72H IVPB Last administered on 08/11/18 11:12; Admin Dose 125 MLS/HR; Start 08/11/18 at 11:00 Meropenem/Sodium Chloride 50 ml @ 100 mls/hr Q12 IVPB Last administered on 08/13/18 09:34; Admin Dose 100 MLS/HR; Start 08/12/18 at 21:00 Furosemide (Lasix) 20 mg DAILY IV Last administered on 08/13/18 08:03; Admin Dose 20 MG; Start 08/13/18 at 09:00 RAMÓN VILLALOBOS Aug 13, 2018 16:26
[2018-08-13] MEDS: BALSAM PERU/CASTOR OIL 60 GM TUBE TOP SCH (20:24)
[2018-08-14] VITALS (45 sets, daily range): BP systolic 103–162; BP diastolic 37–61; PULSE 67–129; RESP 15–27
[2018-08-14] MEDS: MIDAZOLAM (DRIP) 50 mg/50 mL 50 ML IV SCH (00:31)
[2018-08-14] MEDS: ALBUTEROL HFA 8 GM INHALER INH SCH (01:47)
[2018-08-14] MEDS: IPRATROPIUM (HFA) 12.9 GM INHALER INH SCH (01:47)
[2018-08-14] MEDS: FENTAnyl (DRIP) 1000 mcg/100mL 100 ML IV SCH (02:58)
[2018-08-14] MEDS: LANSOPRAZOLE 30 MG CAP GTB SCH (05:17)
[2018-08-14] MEDS: GABAPENTIN 100 MG CAP PO SCH ×2 (08:03→21:00)
[2018-08-14] MEDS: METHYLPREDNISOLONE 40 MG INJ IV SCH (08:03)
[2018-08-14] MEDS: CALCIUM/VITAMIN D (500/200) TAB PO SCH ×2 (08:03→21:00)
[2018-08-14] MEDS: MEROPENEM 500MG/50 ML (PMX) 50 ML IVPB SCH ×2 (08:03→21:31)
[2018-08-14] MEDS: DRONEDARONE HYDROCHLORIDE 400 MG TAB PO SCH ×2 (08:03→17:13)
[2018-08-14] MEDS: ASCORBIC ACID 500 MG TAB PO SCH ×3 (08:03→21:00)
[2018-08-14] MEDS: FUROSEMIDE 20 MG INJ IV SCH ×2 (08:03→17:13)
[2018-08-14] MEDS: BALSAM PERU/CASTOR OIL 60 GM TUBE TOP SCH ×2 (08:04→21:21)
[2018-08-14] MEDS: PROPOFOL 100 ML IV SCH ×2 (08:04→22:00)
--- NOTE | 2018-08-14 09:53 | CONS ---
Consult Date/Type/Reason Admit Date/Time Jul 28, 2018 at 18:16 Initial Consult Date 07/28/18 Type of Consultation: cv Requesting Provider: ABDIAS STAPLES MD Date/Time of Note DATE: 08/14/18 TIME: 09:51 Subjective Cardiology follow-up progress note Subjective: Discussed with the staff telemetry was reviewed. Patient has converted back to NSR now Patient REMAINS INTUBATED on vent in ICU. Patient is lethargic and unresponsive Objective: General: Elderly female INTUBATED on vent . HEENT: NC/AT. pupils are equal. round. NECK: + JVD. no stridor. CV RRR now systolic murmur; no gallop or rubs. PULM: no wheezing + rhonchi. GI: SOFT, NT, ND, no rebound or guarding Extremity: + LE edema. no clubbing. neuro: Unresponsive Psych: calm rectal: deferred : Deferred EKG was personally within normal sinus rhythm with no evidence of ischemia CT pulmonary angiogram done in the emergency room shows: 1. Moderate pulmonary fibrosis, worse at the bilateral lung apices. Associated mediastinal adenopathy. Underlying mass not entirely excluded. Further evaluation with PET-CT may be obtained. 2. Small right multiloculated pleural effusion. Moderate left layering pleural effusion. 3. Streaky bibasilar opacities compatible with atelectasis or pneumonia. 4. Dilated pulmonary trunk and bilateral pulmonary arteries compatible with sequelae of pulmonary hypertension. 5. Left renal 4 cm hyperdense cyst or mass. Further evaluation with multiphase contrast enhanced CT or MR may be obtained. Echocardiogram was personally reviewed which shows: Normal left ventricular systolic function. Normal left ventricular cavity size. Mild concentric left ventricular hypertrophy. Ejection fraction is visually estimated at 55 %. There is mild enlargement of left atrium. Normal appearance of the mitral valve. Mild mitral valve regurgitation. Aortic sclerosis without significant stenosis. Aortic cusps appear mildly calcified. Trileaflet aortic valve. Trace aortic valve regurgitation. Normal appearance of the tricuspid valve. Estimated peak PA systolic pressure 71 mmHg. There is mild tricuspid regurgitation. Normal size and normal respiratory collapse consistent with normal right atrial pressure. CXR 08/05 Again seen are diffuse coarse interstitial infiltrates with superimposed ground-glass densities, slightly more confluent within the perihilar regions and right lower lobe. The osseous structures are unremarkable. Chest x-ray August 06, 2018 shows: Stable patchy infiltrates throughout both lungs with potential small pleural effusions. Stable diffuse mild interstitial prominence in both lungs. Interstitial prominence could be chronic. CT HEAD 08/11/18 FINDINGS: There are numerous supratentorial and infratentorial non-hemorrhagic subacute appearing infarcts or additional infarcts involving the left thalamus are present. There is a right frontal infarct with marginal hyperdensity suggesting a component of petechial hemorrhage. There is generalize effacement of the involve sulci greatest involving the left parietal lobe. There is no left basal ganglia lacunar infarct redemonstrated. There is 1.3 mm of [id number] midline shift. There is otherwise age appropriate central and peripheral atrophy. There is a moderate degree of supratentorial periventricular and subcortical white m atter hypodensities. There is no other intracranial hemorrhage or abnormal extra-axial fluid collection. Visualized paranasal sinuses are clear. IMPRESSION: 1. This is of supratentorial and infratentorial subacute appearing infarcts, largest in the confluent posterior left temporal and parietal lobe with mass effect on the left lateral ventricle. Small amount of probable petechial hemorrhage is associated with a right frontal infarct. 2. Minimal 1.3 mm [id number] midline shift. 3. Nonspecific white matter changes most commonly seen with microvascular ischemic disease. Objective Vitals Vital Signs Date Temp Pulse Resp B/P (MAP) Pulse Ox O2 O2 Flow FiO2 Time Delivery Rate 08/14/18 40 08:00 08/14/18 80 24 141/42 06:00 (75) 08/14/18 95 05:30 08/14/18 Mechanical 05:00 Ventilator 08/14/18 97.8 04:00 Intake and Output 08/13/18 08/13/18 08/14/18 1414:59 22:59 06:59 IntakeIntake Total 782 ml 758 ml 716 ml OutputOutput Total 1825 ml 535 ml 580 ml BalanceBalance -1043 ml 223 ml 136 ml Results/Medications Result Diagram: 08/14/18 0445 08/14/18 0445 Results 24 hrs Laboratory Tests Test 08/14/18 04:45 White Blood Count 15.3 H Red Blood Count 2.51 L Hemoglobin 7.9 L Hematocrit 24.3 L Mean Corpuscular Volume 96.8 Mean Corpuscular Hemoglobin 31.5 Mean Corpuscular Hemoglobin Concent 32.5 Red Cell Distribution Width 19.0 H Platelet Count 64 #L Mean Platelet Volume 12.5 H Immature Granulocytes % 1.400 H Neutrophils % 86.6 H Lymphocytes % 8.4 L Monocytes % 2.7 Eosinophils % 0.8 Basophils % 0.1 Nucleated Red Blood Cells % 0.0 Immature Granulocytes # 0.210 H Neutrophils # 13.3 H Lymphocytes # 1.3 Monocytes # 0.4 Eosinophils # 0.1 Basophils # 0.0 Nucleated Red Blood Cells # 0.0 Sodium Level 137 Potassium Level 4.4 Chloride Level 104 Carbon Dioxide Level 29 Anion Gap 4 L Blood Urea Nitrogen 107 H Creatinine 1.40 H Est Glomerular Filtrat Rate mL/min Glucose Level 111 Calcium Level 8.3 L Phosphorus Level 4.1 Magnesium Level 2.3 Home Meds Reported Medications Ondansetron Hcl* (Zofran*) 8 Mg Tablet, 8 MG PO Q6H PRN for NAUSEA AND OR VOMITING, TAB 07/28/18 Guaifenesin (Xpect) 400 Mg Tablet, 400 MG PO Q12, TAB 07/28/18 Acetaminophen* (Acetaminophen*) 650 Mg Tablet, 650 MG PO Q6H PRN for PAIN AND OR ELEVATED TEMP, #30 TAB 07/28/18 Trazodone Hcl* (Trazodone Hcl*) 50 Mg Tablet, 50 MG PO QHS, #30 TAB 07/28/18 Carisoprodol* (Carisoprodol*) 350 Mg Tablet, 350 MG PO BID PRN for MUSCLE SPASMS, TAB 07/28/18 Montelukast Sodium* (Singulair*) 10 Mg Tablet, 10 MG PO QHS, #30 TAB 07/28/18 Sennosides* (Senna Lax*) 8.6 Mg Tablet, 2 TAB PO QHS, TAB 07/28/18 Fluoxetine Hcl* (Prozac*) 20 Mg Capsule, 20 MG PO DAILY, CAP 07/28/18 Promethazine Hcl* (Phenergan* Liq) 6.25 Mg/5 Ml Syrup, 12.5 MG PO Q6H PRN for COUGH, ML 07/28/18 Lansoprazole* (Lansoprazole*) 30 Mg Capsule.dr, 30 MG PO DAILY, CAP 07/28/18 Vit C/E/Zn/Coppr/Lutein/Zeaxan (Preservision Areds 2 Softgel) 1 Each Capsule, 2 EACH PO DAILY, CAP 07/28/18 Prednisone* (Prednisone*) 20 Mg Tab, 40 MG PO DAILY, TAB 07/28/18 Chlorhexidine Gluconate (Peridex) 473 Ml Mouthwash, 15 ML MM BID, BOTTLE 07/28/18 Hermann-3 Acid Ethyl Esters (Lovaza) 1 Gm Capsule, 2 GM PO DAILY, CAP 07/28/18 Hydrocodone/Acetaminophen ([place] 10-325 Tablet) 1 Each Tablet, 1 EACH PO Q4 PRN for SEVERE PAIN LEVEL 7-10, TAB 07/28/18 Multivitamins* (Theragran*) 1 Tab Tab, 1 TAB PO DAILY, TAB 07/28/18 Guaifenesin (Guaifenesin) 600 Mg Tablet.sa, 600 MG PO BID, TAB 07/28/18 Magnesium Hydroxide* (Milk Of Magnesia*) 400 Mg/5 Ml Oral.susp, 30 ML PO DAILY PRN for CHEST PAIN, ML 07/28/18 Metoprolol Tartrate* (Lopressor*) 50 Mg Tab, 50 MG PO DAILY, #60 TAB HOLD FOR SBP<110 OR HR<60 07/28/18 Atorvastatin Calcium (Atorvastatin Calcium) 10 Mg Tablet, 10 MG PO QHS, #30 TAB 07/28/18 Lidocaine (Lidocaine) 5 Gm Cream..g., 5 GM TP DAILY 07/28/18 Furosemide* (Lasix*) 20 Mg Tablet, 20 MG PO DAILY, TAB 07/28/18 Lactobacillus Rhamnosus* (Culturelle*) 1 Each Cap.sprink, 1 CAP PO DAILY, CAP 07/28/18 Ipratropium-Albuterol (Ipratropium-Albuterol) 0.5-3 Mg/3 Ml Ampul.neb, 3 ML INHALATION Q4 PRN for SHORTNESS OF BREATH, #30 VIAL 07/28/18 Gabapentin* (Gabapentin*) 100 Mg Capsule, 200 MG PO BID, #180 CAP 07/28/18 Folic Acid* (Folic Acid*) 1 Mg Tablet, 1 MG PO DAILY, TAB 07/28/18 Ferrous Sulfate* (Ferrous Sulfate*) 325 Mg Tabec, 325 MG PO TID, TAB 07/28/18 Estrogens Conjugated* (Premarin*) 0.45 Mg Tablet, 0.45 MG PO DAILY, TAB 07/28/18 Bisacodyl (Dulcolax) 10 Mg Supp.rect, 10 MG RC Q48, SUPP.RECT 07/28/18 Docusate Sodium* (Colace*) 100 Mg Capsule, 100 MG PO QHS PRN for CONSTIPATION, #60 CAP 07/28/18 Hydromorphone Hcl* (Dilaudid*) 2 Mg Tablet, 2 MG PO Q6H PRN for SEVERE PAIN LEVEL 7-10, TAB 07/28/18 Cyanocobalamin* (Vitamin B12*) 500 Mcg Tab, 500 MCG PO DAILY, TAB 07/28/18 Clonidine Hcl* (Clonidine Hcl*) 0.1 Mg Tab, 0.1 MG PO Q8, TAB 07/28/18 Clonazepam* (Clonazepam*) 0.5 Mg Tablet, 0.5 MG PO BID PRN for ANXIETY, TAB 07/28/18 Calcium Carbonate/Vitamin D3 ([place] 500+D Tablet) 1 Each Tablet, 1 EACH PO BID, TAB 07/28/18 Fluticasone/Vilanterol (Breo Ellipta 200-25 Mcg INH) 1 Each Blst.w.dev, 1 PUFF INHALATION DAILY, #1 INHALER 07/28/18 Lorazepam* (Lorazepam*) 0.5 Mg Tablet, 0.5 MG PO Q6 PRN for ANXIETY, TAB 07/28/18 Diphenhydramine Hcl* (Benadryl*) 25 Mg Cap, 25 MG PO Q8 PRN for PRN, CAP 07/28/18 Aspirin* (Aspirin* Chew) 81 Mg Tab.chew, 81 MG PO DAILY, TAB.CHEW 07/28/18 Ascorbic Acid* (Vitamin C*) 500 Mg Capsule.sa, 500 MG PO TID, CAP 07/28/18 Apixaban* (Eliquis*) 5 Mg Tablet, 5 MG PO BID, TAB 07/28/18 Hydrocortisone Acetate (Anusol-Hc) 25 Mg Supp.rect, 25 MG TN BID PRN for CONSTIPATION, SUPP.RECT 07/28/18 Amiodarone Hcl* (Amiodarone Hcl*) 200 Mg Tablet, 200 MG PO BID, #30 TAB HOLD FOR SBP<110 OR HR<60 07/28/18 Medications Current Medications Vancomycin HCl (Vanco Iv Per Pharmacy) VANCOMYCIN PER PHARMACY PER PROTOCOL XX ; Start 07/28/18 at 17:30 Albuterol/ Ipratropium (Duoneb) 3 ml Q6H RESP THERAPY HHN Last administered on 08/02/18 01:07; Admin Dose 3 ML; Start 07/28/18 at 20:00; Status Hold Calcium/Vitamin D (Oyster Shell/ Vit-D (500/200)) 1 tab BID PO Last administered on 08/14/18 08:03; Admin Dose 1 TAB; Start 07/28/18 at 21:00 Clonazepam (Klonopin) 0.5 mg BID PRN PO ANXIETY Last administered on 08/04/18 21:00; Admin Dose 0.5 MG; Start 07/28/18 at 21:00 Clonidine (Catapres) 0.1 mg TID PRN PO ELEVATED BLOOD PRESSURE Last administered on 08/13/18 14:58; Admin Dose 0.1 MG; Start 07/28/18 at 21:00 Hydromorphone HCl (Dilaudid) 2 mg Q4H PRN PO SEVERE PAIN LEVEL 7-10 Last ad ministered on 08/01/18 23:34; Admin Dose 2 MG; Start 07/28/18 at 21:00 Docusate Sodium (Colace) 100 mg BID PRN PO CONSTIPATION; Start 07/28/18 at 21:00 Gabapentin (Neurontin) 200 mg BID PO Last administered on 08/14/18 08:03; Admin Dose 200 MG; Start 07/28/18 at 21:00 Magnesium Hydroxide (Milk Of Mag) 30 ml DAILY PRN PO CONSTIPATION; Start 07/28/18 at 21:00 Acetaminophen/ Hydrocodone Bitart ([place] (10/325)) 1 tab Q4H PRN PO MODERATE PAIN LEVEL 4-6 Last administered on 08/01/18 21:02; Admin Dose 1 TAB; Start 07/28/18 at 21:00 Carisoprodol (Soma) 350 mg BID PRN PO MUSCLE SPASMS; Start 07/28/18 at 21:00 Trazodone HCl (Desyrel) 50 mg HS PRN PO INSOMNIA Last administered on 07/29/18 20:29; Admin Dose 50 MG; Start 07/28/18 at 21:00 Ondansetron HCl (Zofran Inj) 4 mg Q6H PRN IV NAUSEA AND/OR VOMITING; Start 07/28/18 at 21:00 Methylprednisolone Sodium Succinate (Solu-Medrol) 40 mg DAILY IV Last administered on 08/14/18 08:03; Admin Dose 40 MG; Start 07/29/18 at 09:00 Ascorbic Acid (Vitamin C) 500 mg TID PO Last administered on 08/14/18 08:03; Admin Dose 500 MG; Start 07/29/18 at 09:00 Lorazepam (Ativan) 0.5 mg Q6H PRN PO ANXIETY Last administered on 08/10/18 21:28; Admin Dose 0.5 MG; Start 07/29/18 at 20:30 Guaifenesin/ Dextromethorphan (Robitussin Dm Liquid Cup) 5 ml Q4H PRN PO COUGH Last administered on 08/01/18 16:32; Admin Dose 5 ML; Start 07/29/18 at 20:30 Diltiazem HCl 125 ml @ 5 mls/hr TITRATE IV Last administered on 07/30/18 09:40; Admin Dose 5 MLS/HR; Start 07/30/18 at 09:00; Status Hold Dronedarone (Multaq) 400 mg BID WITH MEALS PO Last administered on 08/14/18 08:03; Admin Dose 400 MG; Start 07/30/18 at 09:30 Propofol 100 ml @ 1.986 mls/ hr Q12H IV Last administered on 08/05/18 06:36; Admin Dose 11.916 MLS/HR; Start 08/02/18 at 10:00 Albuterol (Ventolin Hfa) 4 puff Q6H RESP THERAPY INH Last administered on 08/14/18 01:47; Admin Dose 4 PUFF; Start 08/02/18 at 14:00 Ipratropium [place] (Atrovent Hfa) 4 puff Q6H RESP THERAPY INH Last admini stered on 08/14/18 01:47; Admin Dose 4 PUFF; Start 08/02/18 at 14:00 Acetaminophen (Tylenol Liquid) 650 mg Q6H PRN GTB MILD PAIN (1-3) OR TEMPERATURE Last administered on 08/12/18 08:13; Admin Dose 650 MG; Start 08/03/18 at 09:30 Docusate Sodium (Colace Liquid Cup) 100 mg BID PRN GTB CONSTIPATION,,,,; Start 08/03/18 at 09:30 IV Flush (NS 10 ml) 10 ml PRN PRN IV IV PROTOCOL; Start 08/03/18 at 10:30 Fentanyl 100 ml @ 2.5 mls/hr TITRATE IV Last administered on 08/14/18at 02:58; Admin Dose 4 MLS/HR; Start 08/04/18 at 09:00 Lansoprazole (Prevacid) 30 mg DAILY@06 GTB Last administered on 08/14/18at 05:17; Admin Dose 30 MG; Start 08/05/18 at 06:00 Midazolam HCl 50 ml @ 1 mls/hr TITRATE IV Last administered on 08/14/18at 00:31; Admin Dose 4 MLS/HR; Start 08/05/18 at 12:00 Norepinephrine 250 ml @ 1.875 mls/ hr TITRATE IV Last administered on 08/05/18at 13:00; Admin Dose 30 MLS/HR; Start 08/05/18 at 13:00 Phenylephrine HCl 80 mg/Dextrose 250 ml @ 18.75 mls/ hr TITRATE IV Last administered on 08/09/18at 01:42; Admin Dose 6.56 MLS/HR; Start 08/06/18 at 15:30 Vancomycin/Sodium Chloride 250 ml @ 125 mls/hr Q72H IVPB Last administered on 08/11/18at 11:12; Admin Dose 125 MLS/HR; Start 08/11/18 at 11:00 Meropenem/Sodium Chloride 50 ml @ 100 mls/hr Q12 IVPB Last administered on 08/14/18 08:03; Admin Dose 100 MLS/HR; Start 08/12/18 at 21:00 Furosemide (Lasix) 20 mg BID DIURETICS IV Last administered on 08/14/18 08:03; Admin Dose 20 MG; Start 08/14/18 at 08:00 Assessment/Plan Hospital Course (Demo Recall) 1. Hypoxemic respiratory failure: Status post intubation on the vent now 2. Pulmonary fibrosis/severe COPD 3. Elevated BNP most likely secondary to above and significant pulmonary hypertension 4. paroxysmal atrial fibrillation; currently converted back to normal sinus rhythm 5. Encephalopathy, CVA: probably embolic 6. pneumonia 7. History of recent fall and hip fracture status post surgery 8. Anemia and OB positive stool 9. Lactic acidosis 10. Hypertension 11. Pulmonary hypertension 12. shock. sepsis 13. Thrombocytopenia Recommendations: off the Eliquis given her OB positive stool as well as thrombocytopenia and worsening anemia and hemoptysis . now with CVA on CT with evidence of petechial bleed as well . allow for permissive HTN. as tolerated Continue with vent support. Antibiotic management as per internal medicine We will continue to monitor on telemetry Correct electrolytes as needed Transfusions as needed off the amiodarone given concern about her severe pulmonary disease and pulmonary fibrosis. cont Multaq . TSH is within normal limits f/u with Neurology consultation /REC prognosis is poor. code is chemical code now only . Thank you for his referral. We will continue to follow along with you DAYRON ROGERS MD [facility] DAYRON ROGERS MD Aug 14, 2018 09:53
[2018-08-14] MEDS: VANCOMYCIN 750 MG (PMX) 250 ML IVPB SCH (11:26)
--- NOTE | 2018-08-14 11:37 | PN ---
Date/Time of Note Date/Time of Note DATE: 08/14/18 TIME: 11:36 Assessment/Plan VTE Prophylaxis Risk score (from Ns)>0 risk: 9 SCD applied (from [facility] [place] Yes Pharmacological prophylaxis: NA/contraindicated Pharm contraindication: thrombocytopenia Lines/Catheters IV Catheter Type (from Nrsg): PICC Line Central line still needed: Yes Urinary Cath still in place: Yes Reason Cath still needed: urinary retention Assessment/Plan Hospital Course Patient continues on ventilatory support, fentanyl drip for pain, nonresponsive, Per family decision patient will undergo compression and extubation on Friday. Assessment/Plan - Supratentorial and infratentorial subacute infarcts, with minimal 1.3 mm [id number] midline shift. EEG revealed abnormal EEG due to severe diffuse slowing, no epileptiform discharges were seen. Dr. Barnes is following in neurology consultation. - Acute hypoxemic respiratory failure due to healthcare-acquired pneumonia/ ARDS. Continue ventilatory support, steroids. from pulmonary standpoint. - Anemia of acute blood loss secondary to nosebleed admission, resolved. status post blood transfusion, continue to monitor hemoglobin and hematocrit. - Sepsis with gram-positive bacteremia. Continue antibiotics per ID. Dr. Brown is following in infection disease consultation. - Bilateral pulmonary fibrosis. Continue supplemental oxygen and symptomatic treatment with steroids. - Chronic obstructive pulmonary disease. Continue DuoNeb and steroids. - Nonobstructive coronary artery disease as per cardiac catheterization in 2012. Dr. Frost is following from cardiac standpoint. - Paroxysmal atrial fibrillation. Patient had an episode of atrial fibrillation with rapid ventricular response and was on Cardizem drip, currently in sinus rhythm. - Hypertension. Continue metoprolol and Lasix. p.r.n. clonidine. - Peripheral artery disease, status post stent. - Dyslipidemia. Continue Lipitor. - MARQUES, Dr. Salazar from nephrology standpoint. - Recent right hip fracture, status post surgery. - Pancreatic head mass. As per patient, she has been going to a specialist every year for followup. - Anxiety and depression. - Poor prognosis, patient is chemical code only. Dr. Greenwood is following in palliative services consultation. Critical care time spent more than 30 minutes. Further recommendations based on clinical course. Plan of care discussed with Dr. Pack. Result Diagram: 08/14/1844408/14/185 Results 24hrs Laboratory Tests Test 2/8/19 04:45 White Blood Count 15.3 H Red Blood Count 2.51 L Hemoglobin 7.9 L Hematocrit 24.3 L Mean Corpuscular Volume 96.8 Mean Corpuscular Hemoglobin 31.5 Mean Corpuscular Hemoglobin Concent 32.5 Red Cell Distribution Width 19.0 H Platelet Count 64 #L Mean Platelet Volume 12.5 H Immature Granulocytes % 1.400 H Neutrophils % 86.6 H Lymphocytes % 8.4 L Monocytes % 2.7 Eosinophils % 0.8 Basophils % 0.1 Nucleated Red Blood Cells % 0.0 Immature Granulocytes # 0.210 H Neutrophils # 13.3 H Lymphocytes # 1.3 Monocytes # 0.4 Eosinophils # 0.1 Basophils # 0.0 Nucleated Red Blood Cells # 0.0 Sodium Level 137 Potassium Level 4.4 Chloride Level 104 Carbon Dioxide Level 29 Anion Gap 4 L Blood Urea Nitrogen 107 H Creatinine 1.40 H Est Glomerular Filtrat Rate mL/min Glucose Level 111 Calcium Level 8.3 L Phosphorus Level 4.1 Magnesium Level 2.3 Exam/Review of Systems Exam Vitals Vital Signs Date Temp Pulse Resp B/P (MAP) Pulse Ox O2 O2 Flow FiO2 Time Delivery Rate 08/14/18 94 24 149/47 96 Mechanical 10:00 (81) Ventilator 08/14/18 98.2 08:00 08/14/18 40 08:00 Intake and Output 08/13/18 08/13/18 08/14/18 1515:00 23:00 07:00 IntakeIntake Total 780 ml 762 ml 716 ml OutputOutput Total 1700 ml 565 ml 500 ml BalanceBalance -920 ml 197 ml 216 ml Exam Constitutional: frail, other (Orally intubated) ENMT: other (OGT) Neck: supple Respiratory: diminished breath sounds Gastrointestinal: soft, non-tender Extremities: normal pulses Neurological: other (non-responsive) Results Results 24hrs Laboratory Tests Test 08/14/18 04:45 White Blood Count 15.3 H Red Blood Count 2.51 L Hemoglobin 7.9 L Hematocrit 24.3 L Mean Corpuscular Volume 96.8 Mean Corpuscular Hemoglobin 31.5 Mean Corpuscular Hemoglobin Concent 32.5 Red Cell Distribution Width 19.0 H Platelet Count 64 #L Mean Platelet Volume 12.5 H Immature Granulocytes % 1.400 H Neutrophils % 86.6 H Lymphocytes % 8.4 L Monocytes % 2.7 Eosinophils % 0.8 Basophils % 0.1 Nucleated Red Blood Cells % 0.0 Immature Granulocytes # 0.210 H Neutrophils # 13.3 H Lymphocytes # 1.3 Monocytes # 0.4 Eosinophils # 0.1 Basophils # 0.0 Nucleated Red Blood Cells # 0.0 Sodium Level 137 Potassium Level 4.4 Chloride Level 104 Carbon Dioxide Level 29 Anion Gap 4 L Blood Urea Nitrogen 107 H Creatinine 1.40 H Est Glomerular Filtrat Rate mL/min Glucose Level 111 Calcium Level 8.3 L Phosphorus Level 4.1 Magnesium Level 2.3 Medications Medication Current Medications Vancomycin HCl (Vanco Iv Per Pharmacy) VANCOMYCIN PER PHARMACY PER PROTOCOL XX ; Start 07/28/18 at 17:30 Albuterol/ Ipratropium (Duoneb) 3 ml Q6H RESP THERAPY HHN Last administered on 08/02/18 01:07; Admin Dose 3 ML; Start 07/28/18 at 20:00; Status Hold Calcium/Vitamin D ([place]yster Shell/ Vit-D (500/200)) 1 tab BID PO Last administered on 08/14/18 08:03; Admin Dose 1 TAB; Start 07/28/18 at 21:00 Clonazepam (Klonopin) 0.5 mg BID PRN PO ANXIETY Last administered on 08/04/18 21:00; Admin Dose 0.5 MG; Start 07/28/18 at 21:00 Clonidine (Catapres) 0.1 mg TID PRN PO ELEVATED BLOOD PRESSURE Last administered on 08/13/18 14:58; Admin Dose 0.1 MG; Start 07/28/18 at 21:00 Hydromorphone HCl (Dilaudid) 2 mg Q4H PRN PO SEVERE PAIN LEVEL 7-10 Last administered on 08/01/18 23:34; Admin Dose 2 MG; Start 07/28/18 at 21:00 Docusate Sodium (Colace) 100 mg BID PRN PO CONSTIPATION; Start 07/28/18 at 21:00 Gabapentin (Neurontin) 200 mg BID PO Last administered on 08/14/18 08:03; Admin Dose 200 MG; Start 07/28/18 at 21:00 Magnesium Hydroxide (Milk Of Mag) 30 ml DAILY PRN PO CONSTIPATION; Start 07/28/18 at 21:00 Acetaminophen/ Hydrocodone Bitart ([place] (10/325)) 1 tab Q4H PRN PO MODERATE PAIN LEVEL 4-6 Last administered on 08/01/18 21:02; Admin Dose 1 TAB; Start 07/28/18 at 21:00 Carisoprodol (Soma) 350 mg BID PRN PO MUSCLE SPASMS; Start 07/28/18 at 21:00 Trazodone HCl (Desyrel) 50 mg HS PRN PO INSOMNIA Last administered on 07/29/18 20:29; Admin Dose 50 MG; Start 07/28/18 at 21:00 Ondansetron HCl (Zofran Inj) 4 mg Q6H PRN IV NAUSEA AND/OR VOMITING; Start 07/28/18 at 21:00 Methylprednisolone Sodium Succinate (Solu-Medrol) 40 mg DAILY IV Last administered on 08/14/18 08:03; Admin Dose 40 MG; Start 07/29/18 at 09:00 Ascorbic Acid (Vitamin C) 500 mg TID PO Last administered on 08/14/18 08:03; Admin Dose 500 MG; Start 07/29/18 at 09:00 Lorazepam (Ativan) 0.5 mg Q6H PRN PO ANXIETY Last administered on 08/10/18 21:28; Admin Dose 0.5 MG; Start 07/29/18 at 20:30 Guaifenesin/ Dextromethorphan (Robitussin Dm Liquid Cup) 5 ml Q4H PRN PO COUGH Last administered on 08/01/18 16:32; Admin Dose 5 ML; Start 07/29/18 at 20:30 Diltiazem HCl 125 ml @ 5 mls/hr TITRATE IV Last administered on 07/30/18 09:40 ; Admin Dose 5 MLS/HR; Start 07/30/18 at 09:00; Status Hold Dronedarone (Multaq) 400 mg BID WITH MEALS PO Last administered on 08/14/18 08:03; Admin Dose 400 MG; Start 07/30/18 at 09:30 Propofol 100 ml @ 1.986 mls/ hr Q12H IV Last administered on 08/05/18 06:36; Admin Dose 11.916 MLS/HR; Start 08/02/18 at 10:00 Albuterol (Ventolin Hfa) 4 puff Q6H RESP THERAPY INH Last administered on 08/14/18 01:47; Admin Dose 4 PUFF; Start 08/02/18 at 14:00 Ipratropium [place] (Atrovent Hfa) 4 puff Q6H RESP THERAPY INH Last administered on 08/14/18 01:47; Admin Dose 4 PUFF; Start 08/02/18 at 14:00 Acetaminophen (Tylenol Liquid) 650 mg Q6H PRN GTB MILD PAIN (1-3) OR TEMPERATURE Last administered on 08/12/18 08:13; Admin Dose 650 MG; Start 08/03/18 at 09:30 Docusate Sodium (Colace Liquid Cup) 100 mg BID PRN GTB CONSTIPATION,,,,; Start 08/03/18 at 09:30 IV Flush (NS 10 ml) 10 ml PRN PRN IV IV PROTOCOL; Start 08/03/18 at 10:30 Fentanyl 100 ml @ 2.5 mls/hr TITRATE IV Last administered on 08/14/18 02:58; Admin Dose 4 MLS/HR; Start 08/04/18 at 09:00 Lansoprazole (Prevacid) 30 mg DAILY@06 GTB Last administered on 08/14/18 05:17; Admin Dose 30 MG; Start 08/05/18 at 06:00 Midazolam HCl 50 ml @ 1 mls/hr TITRATE IV Last administered on 08/14/18 00:31; Admin Dose 4 MLS/HR; Start 08/05/18 at 12:00 Norepinephrine 250 ml @ 1.875 mls/ hr TITRATE IV Last administered on 08/05/18 13:00; Admin Dose 30 MLS/HR; Start 08/05/18 at 13:00 Phenylephrine HCl 80 mg/Dextrose 250 ml @ 18.75 mls/ hr TITRATE IV Last administered on 08/09/18 01:42; Admin Dose 6.56 MLS/HR; Start 08/06/18 at 15:30 Vancomycin/Sodium Chloride 250 ml @ 125 mls/hr Q72H IVPB Last administered on 08/14/18 11:26; Admin Dose 125 MLS/HR; Start 08/11/18 at 11:00 Meropenem/Sodium Chloride 50 ml @ 100 mls/hr Q12 IVPB Last administered on 2/8/19at 08:03; Admin Dose 100 MLS/HR; Start 08/12/18 at 21:00 Furosemide (Lasix) 20 mg BID DIURETICS IV Last administered on 08/14/18at 08:03; Admin Dose 20 MG; Start 08/14/18 at 08:00 RAMÓN VILLALOBOS Aug 14, 2018 11:37
--- NOTE | 2018-08-14 12:11 | PN ---
DATE: 08/14/2018 SUBJECTIVE: The patient remains critically ill on full ventilatory support. The patient has had min imal response. No other acute events noted. No hemoptysis, hematemesis, or hematochezia. OBJECTIVE: VITAL SIGNS: Blood pressure is 141/42, respirations 24, pulse 80, temperature 97.8. HEENT: Head is normocephalic. NECK: Supple. HEART: Regular rate. LUNGS: Show diminished breath sounds at base. ABDOMEN: Soft, nontender to palpation without rebound or guarding. EXTREMITIES: Negative for clubbing, cyanosis. Positive edema. DERMATOLOGIC: No rashes. MUSCULOSKELETAL: No joint effusions. NEUROLOGIC: No change in exam. MEDICATIONS: Reviewed. LABORATORY DATA: Shows sodium 137, potassium 4.4, BUN 107, creatinine 1.40, calcium 8.3. White coun t 15.3, hemoglobin 7.9, platelet count 64. The patient's ABG was reviewed. ASSESSMENT AND PLAN: 1. Nonoliguric acute kidney injury with unknown baseline creatinine. Etiology is secondary to acute tubular necrosis due to sepsis, hemodynamics. The patient appears to be entering maintenance phase of acute tubular necrosis as creatinine has stabilized. The patient does have significant azotemia, which is multifactorial secondary to acute kidney injury, hypercatabolic state, steroids, diuretic th erapy. At this point, we will continue current treatment plan. Continue to adjust diuretic therapy. Continue to renally dose all medicines, avoid nephrotoxins. No immediate need for renal replacemen t therapy at this time. 2. Hyperkalemia, resolved. Continue to monitor. 3. Anemia. Monitor hemoglobin and hematocrit levels. 4. Mineral bone disorder, monitor calcium and phosphorus levels. 5. Hypernatremia, improved. Continue free water flushes. 6. Volume overload secondary to sepsis, capillary leak, diastolic heart failure. The patient is res ponding well to diuretic therapy. We will increase Lasix to 20 mg IV b.i.d., monitor electrolytes an d renal function closely. 7. Sepsis, status post shock. Continue current antibiotic regimen. 8. Acute cerebrovascular accident. The patient has been evaluated by neurology. Continue medical m anagement. 9. Acute encephalopathy, etiology is secondary to cerebrovascular, toxic metabolic. Continue to mon itor. 10. Ventilator-dependent respiratory failure. Vent settings and ABG was reviewed. Continue to kyra tor. 11. Dysphagia. Continue tube feeding. 12. History of peripheral vascular disease. 13. Status post hip arthroplasty. Please note, I spent over 30 minutes of critical care time with this patient. Dictated By: GENEVIEVE MENJIVAR DO NR/NTS Conf#: [id number] DID#: [id number] CC: BART FIORE MD; ABDIAS STAPLES MD;*EndCC*
--- NOTE | 2018-08-14 12:32 | CONS ---
Assessment/Plan Assessment/Plan Hospital Course (Demo Recall) No acute events patient remains unchanged, no fevers overnight WBC 15.3 platelets 64 neutrophils 86.6 BUN 107 creatinine 1.40 Indwelling: Endotracheal tube, NG tube, [place], PICC line Microbiology: Sputum culture on August 06 grew MRSA and Ivania albicans Antimicrobials: Vancomycin, fluconazole Merrem Allergies: Penicillin, tetracycline Physical examination: This is a fragile chronically ill-appearing wasted elderly woman who is in no distress. Head atraumatic normocephalic sclera nonicteric. Neck is supple. Chest rise symmetrical breath sounds diminished bases. Heart: S1-S2. Abdomen soft bowel sounds present extremities without cyanosis. Assessment: 1. Severe sepsis 2. Acute on chronic respiratory failure, status post intubation 08/02/18 3. Healthcare associated pneumonia/ARDS 4. Coag negative staph bacteremia, possibly contaminant 5. Anemia with progressive thrombocytopenia 6. ARF 5. Peripheral arterial disease status post stent 6. Pancreatic head mass, patient is following with a specialist yearly 7. Recent right hip fracture status post surgical intervention 8. Encephalopathy, acute Plan: Remains unchanged, repeat blood and urine cultures negative, continue antibiotics, pending family's decision regarding plan of care Consultation Date/Type/Reason Admit Date/Time Jul 28, 2018 at 18:16 Initial Consult Date 07/28/18 Type of Consult id Requesting Provider: ABDIAS STAPLES MD Date/Time of Note DATE: 08/14/18 TIME: 12:31 Exam/Review of Systems Exam Vitals Vital Signs Date Temp Pulse Resp B/P (MAP) Pulse Ox O2 O2 Flow FiO2 Time Delivery Rate 08/14/18 94 24 149/47 96 Mechanical 10:00 (81) Ventilator 08/14/18 98.2 08:00 08/14/18 40 08:00 Intake and Output 08/13/18 08/13/18 08/14/18 1515:00 23:00 07:00 IntakeIntake Total 780 ml 762 ml 716 ml OutputOutput Total 1700 ml 565 ml 500 ml BalanceBalance -920 ml 197 ml 216 ml Results Result Diagram: 08/14/18 0445 08/14/18444 Results 24hrs Laboratory Tests Test 08/14/18 04:45 White Blood Count 15.3 H Red Blood Count 2.51 L Hemoglobin 7.9 L Hematocrit 24.3 L Mean Corpuscular Volume 96.8 Mean Corpuscular Hemoglobin 31.5 Mean Corpuscular Hemoglobin Concent 32.5 Red Cell Distribution Width 19.0 H Platelet Count 64 #L Mean Platelet Volume 12.5 H Immature Granulocytes % 1.400 H Neutrophils % 86.6 H Lymphocytes % 8.4 L Monocytes % 2.7 Eosinophils % 0.8 Basophils % 0.1 Nucleated Red Blood Cells % 0.0 Immature Granulocytes # 0.210 H Neutrophils # 13.3 H Lymphocytes # 1.3 Monocytes # 0.4 Eosinophils # 0.1 Basophils # 0.0 Nucleated Red Blood Cells # 0.0 Sodium Level 137 Potassium Level 4.4 Chloride Level 104 Carbon Dioxide Level 29 Anion Gap 4 L Blood Urea Nitrogen 107 H Creatinine 1.40 H Est Glomerular Filtrat Rate mL/min Glucose Level 111 Calcium Level 8.3 L Phosphorus Level 4.1 Magnesium Level 2.3 Medications Medication Current Medications Vancomycin HCl (Vanco Iv Per Pharmacy) VANCOMYCIN PER PHARMACY PER PROTOCOL XX ; Start 07/28/18 at 17:30 Albuterol/ Ipratropium (Duoneb) 3 ml Q6H RESP THERAPY HHN Last administered on 08/02/18at 01:07; Admin Dose 3 ML; Start 07/28/18 at 20:00; Status Hold Calcium/Vitamin D (Oyster Shell/ Vit-D (500/200)) 1 tab BID PO Last administered on 08/14/18 08:03; Admin Dose 1 TAB; Start 07/28/18 at 21:00 Clonazepam (Klonopin) 0.5 mg BID PRN PO ANXIETY Last administered on 08/04/18at 21:00; Admin Dose 0.5 MG; Start 07/28/18 at 21:00 Clonidine (Catapres) 0.1 mg TID PRN PO ELEVATED BLOOD PRESSURE Last administered on 08/13/18at 14:58; Admin Dose 0.1 MG; Start 07/28/18 at 21:00 Hydromorphone HCl (Dilaudid) 2 mg Q4H PRN PO SEVERE PAIN LEVEL 7-10 Last administered on 08/01/18at 23:34; Admin Dose 2 MG; Start 07/28/18 at 21:00 Docusate Sodium (Colace) 100 mg BID PRN PO CONSTIPATION; Start 07/28/18 at 21:00 Gabapentin (Neurontin) 200 mg BID PO Last administered on 08/14/18 08:03; Admin Dose 200 MG; Start 07/28/18 at 21:00 Magnesium Hydroxide (Milk Of Mag) 30 ml DAILY PRN PO CONSTIPATION; Start 07/28/18 at 21:00 Acetaminophen/ Hydrocodone Bitart ([place] (10/325)) 1 tab Q4H PRN PO MODERATE PAIN LEVEL 4-6 Last administered on 08/01/18 21:02; Admin Dose 1 TAB; Start 07/28/18 at 21:00 Carisoprodol (Soma) 350 mg BID PRN PO MUSCLE SPASMS; Start 07/28/18 at 21:00 Trazodone HCl (Desyrel) 50 mg HS PRN PO INSOMNIA Last administered on 07/29/18 20:29; Admin Dose 50 MG; Start 07/28/18 at 21:00 Ondansetron HCl (Zofran Inj) 4 mg Q6H PRN IV NAUSEA AND/OR VOMITING; Start at 21:00 Methylprednisolone Sodium Succinate (Solu-Medrol) 40 mg DAILY IV Last administered on 08/14/18 08:03; Admin Dose 40 MG; Start 07/29/18 at 09:00 Ascorbic Acid (Vitamin C) 500 mg TID PO Last administered on 08/14/18 08:03; Admin Dose 500 MG; Start 07/29/18 at 09:00 Lorazepam (Ativan) 0.5 mg Q6H PRN PO ANXIETY Last administered on 08/10/18 21:28; Admin Dose 0.5 MG; Start 07/29/18 at 20:30 Guaifenesin/ Dextromethorphan (Robitussin Dm Liquid Cup) 5 ml Q4H PRN PO COUGH Last administered on 08/01/18 16:32; Admin Dose 5 ML; Start 07/29/18 at 20:30 Diltiazem HCl 125 ml @ 5 mls/hr TITRATE IV Last administered on 07/30/18 09:40; Admin Dose 5 MLS/HR; Start 07/30/18 at 09:00; Status Hold Dronedarone (Multaq) 400 mg BID WITH MEALS PO Last administered on 08/14/18 08:03; Admin Dose 400 MG; Start 07/30/18 at 09:30 Propofol 100 ml @ 1.986 mls/ hr Q12H IV Last administered on 08/05/18 06:36; Admin Dose 11.916 MLS/HR; Start 08/02/18 at 10:00 Albuterol (Ventolin Hfa) 4 puff Q6H RESP THERAPY INH Last administered on 08/14/18 01:47; Admin Dose 4 PUFF; Start 08/02/18 at 14:00 Ipratropium [place] (Atrovent Hfa) 4 puff Q6H RESP THERAPY INH Last administered on 08/14/18 01:47; Admin Dose 4 PUFF; Start 08/02/18 at 14:00 Acetaminophen (Tylenol Liquid) 650 mg Q6H PRN GTB MILD PAIN (1-3) OR TEMPERATURE Last administered on 08/12/18 08:13; Admin Dose 650 MG; Start 08/03/18 at 09:30 Docusate Sodium (Colace Liquid Cup) 100 mg BID PRN GTB CONSTIPATION,,,,; Start 08/03/18 at 09:30 IV Flush (NS 10 ml) 10 ml PRN PRN IV IV PROTOCOL; Start 08/03/18 at 10:30 Fentanyl 100 ml @ 2.5 mls/hr TITRATE IV Last administered on 08/14/18 02:58; Admin Dose 4 MLS/HR; Start 08/04/18 at 09:00 Lansoprazole (Prevacid) 30 mg DAILY@06 GTB Last administered on 08/14/18 05:17; Admin Dose 30 MG; Start 08/05/18 at 06:00 Midazolam HCl 50 ml @ 1 mls/hr TITRATE IV Last administered on 08/14/18 00:31; Admin Dose 4 MLS/HR; Start 08/05/18 at 12:00 Norepinephrine 250 ml @ 1.875 mls/ hr TITRATE IV Last administered on 08/05/18 13:00; Admin Dose 30 MLS/HR; Start 08/05/18 at 13:00 Phenylephrine HCl 80 mg/Dextrose 250 ml @ 18.75 mls/ hr TITRATE IV Last administered on 08/09/18 01:42; Admin Dose 6.56 MLS/HR; Start 08/06/18 at 15:30 Vancomycin/Sodium Chloride 250 ml @ 125 mls/hr Q72H IVPB Last administered on 08/14/18 11:26; Admin Dose 125 MLS/HR; Start 08/11/18 at 11:00 Meropenem/Sodium Chloride 50 ml @ 100 mls/hr Q12 IVPB Last administered on 08/14/18at 08:03; Admin Dose 100 MLS/HR; Start 08/12/18 at 21:00 Furosemide (Lasix) 20 mg BID DIURETICS IV Last administered on 08/14/18at 08:03; Admin Dose 20 MG; Start 08/14/18 at 08:00 ANDREW SMITH NP Aug 14, 2018 12:32
--- NOTE | 2018-08-14 13:20 | CONS ---
Consult Date/Type/Reason Admit Date/Time Jul 28, 2018 at 18:16 Initial Consult Date 07/28/18 Type of Consult Pulmonary Requesting Provider: ABDIAS STAPLES MD Date/Time of Note DATE: 08/14/18 TIME: 13:19 Subjective Patient remains somnolent on mechanical ventilation this morning. Objective Vital Signs Date Temp Pulse Resp B/P (MAP) Pulse Ox O2 O2 Flow FiO2 Time Delivery Rate 08/14/18 90 12:00 08/14/18 24 149/47 96 Mechanical 10:00 (81) Ventilator 08/14/18 98.2 08:00 08/14/18 40 08:00 Intake and Output 08/13/18 08/13/18 08/14/18 1515:00 23:00 07:00 IntakeIntake Total 780 ml 762 ml 716 ml OutputOutput Total 1700 ml 565 ml 500 ml BalanceBalance -920 ml 197 ml 216 ml Exam PHYSICAL EXAMINATION GENERAL: Frail elderly lady orally intubated. VITAL SIGNS: see below. HEENT: Pupils equal, round, and reactive to light. CARDIAC: S1, S2, 1/6 systolic ejection murmur CHEST: Diminished air entry bilaterally. ABDOMEN: Mildly distended. Bowel sounds present no guarding or rebound EXTREMITIES: No cyanosis, clubbing edema +1 NEUROLOGIC: Generalized weakness, unable to assess Vent Setting Ventilator Support Mode: AC Fraction of Inspired Oxygen pe: 40 Positive End Expiratory Pressu: 5.0 Results/Medications Result Diagram: 08/14/1844408/14/18444 Results 24 hrs Laboratory Tests Test 08/14/18 04:45 White Blood Count 15.3 H Red Blood Count 2.51 L Hemoglobin 7.9 L Hematocrit 24.3 L Mean Corpuscular Volume 96.8 Mean Corpuscular Hemoglobin 31.5 Mean Corpuscular Hemoglobin Concent 32.5 Red Cell Distribution Width 19.0 H Platelet Count 64 #L Mean Platelet Volume 12.5 H Immature Granulocytes % 1.400 H Neutrophils % 86.6 H Lymphocytes % 8.4 L Monocytes % 2.7 Eosinophils % 0.8 Basophils % 0.1 Nucleated Red Blood Cells % 0.0 Immature Granulocytes # 0.210 H Neutrophils # 13.3 H Lymphocytes # 1.3 Monocytes # 0.4 Eosinophils # 0.1 Basophils # 0.0 Nucleated Red Blood Cells # 0.0 Sodium Level 137 Potassium Level 4.4 Chloride Level 104 Carbon Dioxide Level 29 Anion Gap 4 L Blood Urea Nitrogen 107 H Creatinine 1.40 H Est Glomerular Filtrat Rate mL/min Glucose Level 111 Calcium Level 8.3 L Phosphorus Level 4.1 Magnesium Level 2.3 Medications Current Medications Vancomycin HCl (Vanco Iv Per Pharmacy) VANCOMYCIN PER PHARMACY PER PROTOCOL XX ; Start 07/28/18 at 17:30 Albuterol/ Ipratropium (Duoneb) 3 ml Q6H RESP THERAPY HHN Last administered on 08/02/18 01:07; Admin Dose 3 ML; Start 07/28/18 at 20:00; Status Hold Calcium/Vitamin D ([place]/ Vit-D (500/200)) 1 tab BID PO Last administered on 08/14/18 08:03; Admin Dose 1 TAB; Start 07/28/18 at 21:00 Clonazepam (Klonopin) 0.5 mg BID PRN PO ANXIETY Last administered on 08/04/18 21:00; Admin Dose 0.5 MG; Start 07/28/18 at 21:00 Clonidine (Catapres) 0.1 mg TID PRN PO ELEVATED BLOOD PRESSURE Last administered on 08/13/18 14:58; Admin Dose 0.1 MG; Start 07/28/18 at 21:00 Hydromorphone HCl (Dilaudid) 2 mg Q4H PRN PO SEVERE PAIN LEVEL 7-10 Last administered on 08/01/18 23:34; Admin Dose 2 MG; Start 07/28/18 at 21:00 Docusate Sodium (Colace) 100 mg BID PRN PO CONSTIPATION; Start 07/28/18 at 21:00 Gabapentin (Neurontin) 200 mg BID PO Last administered on 08/14/18 08:03; Admin Dose 200 MG; Start 07/28/18 at 21:00 Magnesium Hydroxide (Milk Of Mag) 30 ml DAILY PRN PO CONSTIPATION; Start 07/28/18 at 21:00 Acetaminophen/ Hydrocodone Bitart ([place] (10/325)) 1 tab Q4H PRN PO MODERATE PAIN LEVEL 4-6 Last administered on 08/01/18 21:02; Admin Dose 1 TAB; Start 07/28/18 at 21:00 Carisoprodol (Soma) 350 mg BID PRN PO MUSCLE SPASMS; Start 07/28/18 at 21:00 Trazodone HCl (Desyrel) 50 mg HS PRN PO INSOMNIA Last administered on 07/29/18 20:29; Admin Dose 50 MG; Start 07/28/18 at 21:00 Ondansetron HCl (Zofran Inj) 4 mg Q6H PRN IV NAUSEA AND/OR VOMITING; Start 07/28/18 at 21:00 Methylprednisolone Sodium Succinate (Solu-Medrol) 40 mg DAILY IV Last admi nistered on 08/14/18 08:03; Admin Dose 40 MG; Start 07/29/18 at 09:00 Ascorbic Acid (Vitamin C) 500 mg TID PO Last administered on 08/14/18 08:03; Admin Dose 500 MG; Start 07/29/18 at 09:00 Lorazepam (Ativan) 0.5 mg Q6H PRN PO ANXIETY Last administered on 08/10/18 21:28; Admin Dose 0.5 MG; Start 07/29/18 at 20:30 Guaifenesin/ Dextromethorphan (Robitussin Dm Liquid Cup) 5 ml Q4H PRN PO COUGH Last administered on 08/01/18 16:32; Admin Dose 5 ML; Start 07/29/18 at 20:30 Diltiazem HCl 125 ml @ 5 mls/hr TITRATE IV Last administered on 07/30/18 09:40; Admin Dose 5 MLS/HR; Start 07/30/18 at 09:00; Status Hold Dronedarone (Multaq) 400 mg BID WITH MEALS PO Last administered on 08/14/18 08:03; Admin Dose 400 MG; Start 07/30/18 at 09:30 Propofol 100 ml @ 1.986 mls/ hr Q12H IV Last administered on 08/05/18 06:36; Admin Dose 11.916 MLS/HR; Start 08/02/18 at 10:00 Albuterol (Ventolin Hfa) 4 puff Q6H RESP THERAPY INH Last administered on 08/14/18 01:47; Admin Dose 4 PUFF; Start 08/02/18 at 14:00 Ipratropium [place] (Atrovent Hfa) 4 puff Q6H RESP THERAPY INH Last administered on 2/8/19at 01:47; Admin Dose 4 PUFF; Start 08/02/18 at 14:00 Acetaminophen (Tylenol Liquid) 650 mg Q6H PRN GTB MILD PAIN (1-3) OR TEMPERATURE Last administered on 08/12/18 08:13; Admin Dose 650 MG; Start 08/03/18 at 09:30 Docusate Sodium (Colace Liquid Cup) 100 mg BID PRN GTB CONSTIPATION,,,,; Start 08/03/18 at 09:30 IV Flush (NS 10 ml) 10 ml PRN PRN IV IV PROTOCOL; Start 08/03/18 at 10:30 Fentanyl 100 ml @ 2.5 mls/hr TITRATE IV Last administered on 08/14/18 02:58; Admin Dose 4 MLS/HR; Start 08/04/18 at 09:00 Lansoprazole (Prevacid) 30 mg DAILY@06 GTB Last administered on 08/14/18 05:17; Admin Dose 30 MG; Start 08/05/18 at 06:00 Midazolam HCl 50 ml @ 1 mls/hr TITRATE IV Last administered on 08/14/18 00:31; Admin Dose 4 MLS/HR; Start 08/05/18 at 12:00 Norepinephrine 250 ml @ 1.875 mls/ hr TITRATE IV Last administered on 08/05/18 13:00; Admin Dose 30 MLS/HR; Start 08/05/18 at 13:00 Phenylephrine HCl 80 mg/Dextrose 250 ml @ 18.75 mls/ hr TITRATE IV Last administered on 08/09/18 01:42; Admin Dose 6.56 MLS/HR; Start 08/06/18 at 15:30 Vancomycin/Sodium Chloride 250 ml @ 125 mls/hr Q72H IVPB Last administered on 08/14/18 11:26; Admin Dose 125 MLS/HR; Start 08/11/18 at 11:00 Meropenem/Sodium Chloride 50 ml @ 100 mls/hr Q12 IVPB Last administered on 08/14/18 08:03; Admin Dose 100 MLS/HR; Start 08/12/18 at 21:00 Furosemide (Lasix) 20 mg BID DIURETICS IV Last administered on 08/14/18 08:03; Admin Dose 20 MG; Start 08/14/18 at 08:00 Assessment/Plan Hospital Course (Demo Recall) Assessment 1. Acute CVA with encephalopathy 2. Acute on chronic hypoxemic respiratory failure with ongoing bilateral infiltrates 3. Renal insufficiency 4. Severe sepsis likely secondary to pneumonia 5. A. fib with RVR Plan 1. Continue supportive care 2. Palliative care evaluation and input his overall prognosis is extremely poor Family considering terminal extubation as per my discussion with them yesterday. Critical care 40 minutes CARRINGTON LANDIN MD, [facility] Aug 14, 2018 13:20
--- NOTE | 2018-08-14 16:07 | CONS ---
Assessment/Plan Assessment/Plan Hospital Course 73 yo F with multiple cerebrovascular risk factors who presents with acute respiratory failure, requiring emergent intubation. It was noted that pt was unresponsive after sedation was held... for which neurology is consulted. She is reported to have had multiple episodes of paroxysmal atrial fibrillation over the past few days, which raised clinical suspicion for stroke. CTH confirmed multiple large acute infarcts b/l... EEG is without epileptiform activity to suggest superimposed subclinical seizure. Echo is unrevealing. CUS is most notable for 50-69% R ICA stenosis. P: Cont asa daily for stroke prevention Hold Lipitor (LDL is within goal < 70) Hold sedating medications where possible Other medical management per primary Will follow clinically Consultation Date/Type/Reason Admit Date/Time Jul 28, 2018 at 18:16 Type of Consult Neurology Reason for Consultation ams Requesting Provider: ABDIAS STAPLES MD Date/Time of Note DATE: 08/14/18 TIME: 16:07 24 HR Interval Summary Free Text/Dictation Continues critical care. No acute events reported. On fentanyl gtt. Subjective hx not possible: pt non-verbal, pt critical status Exam Vital Signs Vitals Vital Signs Date Temp Pulse Resp B/P (MAP) Pulse Ox O2 O2 Flow FiO2 Time Delivery Rate 08/14/18 85 24 135/42 100 Mechanical 14:00 (73) Ventilator 08/14/18 98.3 12:00 08/14/18 40 08:00 Intake and Output 08/13/18 08/13/18 08/14/18 1515:00 23:00 07:00 IntakeIntake Total 780 ml 762 ml 716 ml OutputOutput Total 1700 ml 565 ml 500 ml BalanceBalance -920 ml 197 ml 216 ml Exam PE: Gen Appearance: No Apparent Distress HEENT: Intubated; has NGT Cardiovascular: Regular rate Abdomen: Soft Extremities: Dry NE: The patient was comatose. Tried to blink to noxious stimuli. Cranial nerve examination was limited by mental status. Pupils were equal and sluggishly reactive to light. There was no afferent pupillary defect. Funduscopic examination was limited. Face was grossly symmetric, w/ present corneal reflexes. Tone was normal. Muscle bulk was normal. I did not see fasciculations. The patient minimally withdrew RLE to noxious stimulation; did not withdraw to noxious stimuli in the other extremities. Coordination and gait testing was limited by mental status. Arm and leg reflexes were symmetric. Connell's sign was absent. Plantar responses were mute. CONNER NUÑEZ NP Aug 14, 2018 16:07
[2018-08-15] VITALS (37 sets, daily range): BP systolic 97–177; BP diastolic 35–64; PULSE 64–133; RESP 13–25
[2018-08-15] MEDS: FENTAnyl (DRIP) 1000 mcg/100mL 100 ML IV SCH ×2 (00:31→22:39)
[2018-08-15] MEDS: MIDAZOLAM (DRIP) 50 mg/50 mL 50 ML IV SCH ×2 (01:17→18:49)
[2018-08-15] MEDS: FUROSEMIDE 20 MG INJ IV SCH ×2 (05:37→17:45)
[2018-08-15] MEDS: LANSOPRAZOLE 30 MG CAP GTB SCH (05:46)
--- NOTE | 2018-08-15 07:20 | PN ---
Date/Time of Note Date/Time of Note DATE: 08/15/18 TIME: 07:18 Assessment/Plan VTE Prophylaxis Risk score (from Ns)>0 risk: 10 SCD applied (from Ns): Yes Pharmacological prophylaxis: other Lines/Catheters IV Catheter Type (from [facility]): PICC Line Central line still needed: Yes Urinary Cath still in place: Yes Reason Cath still needed: urinary retention Assessment/Plan Hospital Course SUBJECTIVE: The patient remains critically ill on full ventilatory support. The patient has had minimal response. No other acute events noted. No hemopt ysis, hematemesis, fever, vomiting, seizure like activities or hematochezia. vent settings, imaging studies and cardiac strips were reviewed d/w Dr Salazar OBJECTIVE: HEENT: Head is normocephalic. NECK: Supple. HEART: Regular rate. LUNGS: Show diminished breath sounds at base. ABDOMEN: Soft, nontender to palpation without rebound or guarding. EXTREMITIES: Negative for clubbing, cyanosis. Positive edema. DERMATOLOGIC: No rashes. MUSCULOSKELETAL: No joint effusions. NEUROLOGIC: No change in exam. MEDICATIONS: Reviewed. ASSESSMENT AND PLAN: 1. Nonoliguric acute kidney injury with unknown baseline creatinine. Etiology is secondary to acute tubular necrosis due to sepsis, hemodynamics. The patient appears to be entering maintenance phase of acute tubular necrosis as creatinine has stabilized. The patient does have significant azotemia, which is multifactorial secondary to acute kidney injury, hypercatabolic state, steroids, diuretic therapy. At this point, we will continue current treatment plan. Continue to adjust diuretic therapy. Continue to renally dose all medicines, avoid nephrotoxins. No immediate need for renal replacement therapy at this time. 2. Hyperkalemia, resolved. Continue to monitor. 3. Anemia. Monitor hemoglobin and hematocrit levels. 4. Mineral bone disorder, monitor calcium and phosphorus levels. 5. Hypernatremia, improved. Continue free water flushes. 6. Volume overload secondary to sepsis, capillary leak, diastolic heart failur e. The patient is responding well to diuretic therapy. We will increase Lasix to 20 mg IV b.i.d., monitor electrolytes and renal function closely. 7. Sepsis, status post shock. Continue current antibiotic regimen. 8. Acute cerebrovascular accident. The patient has been evaluated by neurology. Continue medical management. 9. Acute encephalopathy, etiology is secondary to cerebrovascular, toxic metabolic. Continue to monitor. 10. Ventilator-dependent respiratory failure. Vent settings and ABG was reviewed. Continue to monitor. 11. Dysphagia. Continue tube feeding. 12. History of peripheral vascular disease. 13. Status post hip arthroplasty. Result Diagram: 08/15/1843108/15/182 Results 24hrs Laboratory Tests Test 08/15/18 04:32 White Blood Count 14.2 H Red Blood Count 2.80 L Hemoglobin 8.7 L Hematocrit 26.7 L Mean Corpuscular Volume 95.4 Mean Corpuscular Hemoglobin 31.1 Mean Corpuscular Hemoglobin Concent 32.6 Red Cell Distribution Width 19.0 H Platelet Count 100 #L Mean Platelet Volume 11.9 H Immature Granulocytes % 0.800 H Neutrophils % 83.0 H Lymphocytes % 11.4 L Monocytes % 4.3 Eosinophils % 0.4 Basophils % 0.1 Nucleated Red Blood Cells % 0.0 Immature Granulocytes # 0.120 H Neutrophils # 11.8 H Lymphocytes # 1.6 Monocytes # 0.6 Eosinophils # 0.1 Basophils # 0.0 Nucleated Red Blood Cells # 0.0 Sodium Level 141 Potassium Level 4.0 Chloride Level 102 Carbon Dioxide Level 30 Anion Gap 9 # Blood Urea Nitrogen 101 H Creatinine 1.37 H Est Glomerular Filtrat Rate mL/min Glucose Level 99 Calcium Level 8.3 L Phosphorus Level 4.1 Magnesium Level 2.3 Exam/Review of Systems Exam Vitals Vital Signs Date Temp Pulse Resp B/P (MAP) Pulse Ox O2 O2 Flow FiO2 Time Delivery Rate 08/15/18 98 24 116/43 98 06:30 (67) 08/15/18 Mechanical 06:00 Ventilator 08/15/18 40 05:03 08/15/18 97.9 04:00 Intake and Output 08/14/18 08/14/18 08/15/18 1515:00 23:00 07:00 IntakeIntake Total 739.5 ml 397.5 ml 52 ml OutputOutput Total 1325 ml 1215 ml 715 ml BalanceBalance -585.5 ml -817.5 ml -663 ml Results Results 24hrs Laboratory Tests Test 08/15/18 04:32 White Blood Count 14.2 H Red Blood Count 2.80 L Hemoglobin 8.7 L Hematocrit 26.7 L Mean Corpuscular Volume 95.4 Mean Corpuscular Hemoglobin 31.1 Mean Corpuscular Hemoglobin Concent 32.6 Red Cell Distribution Width 19.0 H Platelet Count 100 #L Mean Platelet Volume 11.9 H Immature Granulocytes % 0.800 H Neutrophils % 83.0 H Lymphocytes % 11.4 L Monocytes % 4.3 Eosinophils % 0.4 Basophils % 0.1 Nucleated Red Blood Cells % 0.0 Immature Granulocytes # 0.120 H Neutrophils # 11.8 H Lymphocytes # 1.6 Monocytes # 0.6 Eosinophils # 0.1 Basophils # 0.0 Nucleated Red Blood Cells # 0.0 Sodium Level 141 Potassium Level 4.0 Chloride Level 102 Carbon Dioxide Level 30 Anion Gap 9 # Blood Urea Nitrogen 101 H Creatinine 1.37 H Est Glomerular Filtrat Rate mL/min Glucose Level 99 Calcium Level 8.3 L Phosphorus Level 4.1 Magnesium Level 2.3 Medications Medication Current Medications Vancomycin HCl (Vanco Iv Per Pharmacy) VANCOMYCIN PER PHARMACY PER PROTOCOL XX ; Start 07/28/18 at 17:30 Albuterol/ Ipratropium (Duoneb) 3 ml Q6H RESP THERAPY HHN Last administered on 08/02/18 01:07; Admin Dose 3 ML; Start 07/28/18 at 20:00; Status Hold Calcium/Vitamin D (Oyster Shell/ Vit-D (500/200)) 1 tab BID PO Last administered on 08/14/18 08:03; Admin Dose 1 TAB; Start 07/28/18 at 21:00 Clonazepam (Klonopin) 0.5 mg BID PRN PO ANXIETY Last administered on 08/04/18 21:00; Admin Dose 0.5 MG; Start 07/28/18 at 21:00 Clonidine (Catapres) 0.1 mg TID PRN PO ELEVATED BLOOD PRESSURE Last administered on 08/13/18 14:58; Admin Dose 0.1 MG; Start 07/28/18 at 21:00 Hydromorphone HCl (Dilaudid) 2 mg Q4H PRN PO SEVERE PAIN LEVEL 7-10 Last administered on 08/01/18 23:34; Admin Dose 2 MG; Start 07/28/18 at 21:00 Docusate Sodium (Colace) 100 mg BID PRN PO CONSTIPATION; Start 07/28/18 at 21:00 Gabapentin (Neurontin) 200 mg BID PO Last administered on 08/14/18 08:03; Admin Dose 200 MG; Start 07/28/18 at 21:00 Magnesium Hydroxide (Milk Of Mag) 30 ml DAILY PRN PO CONSTIPATION; Start 07/28/18 at 21:00 Acetaminophen/ Hydrocodone Bitart ([place] (10/325)) 1 tab Q4H PRN PO MODERATE PAIN LEVEL 4-6 Last administered on 08/01/18 21:02; Admin Dose 1 TAB; Start 07/28/18 at 21:00 Carisoprodol (Soma) 350 mg BID PRN PO MUSCLE SPASMS; Start 07/28/18 at 21:00 Trazodone HCl (Desyrel) 50 mg HS PRN PO INSOMNIA Last administered on 07/29/18 20:29; Admin Dose 50 MG; Start 07/28/18 at 21:00 Ondansetron HCl (Zofran Inj) 4 mg Q6H PRN IV NAUSEA AND/OR VOMITING; Start 07/28/18 at 21:00 Methylprednisolone Sodium Succinate (Solu-Medrol) 40 mg DAILY IV Last administered on 08/14/18 08:03; Admin Dose 40 MG; Start 07/29/18 at 09:00 Ascorbic Acid (Vitamin C) 500 mg TID PO Last administered on 08/14/18 13:30; Admin Dose 500 MG; Start 07/29/18 at 09:00 Lorazepam (Ativan) 0.5 mg Q6H PRN PO ANXIETY Last administered on 08/10/18 21:28; Admin Dose 0.5 MG; Start 07/29/18 at 20:30 Guaifenesin/ Dextromethorphan (Robitussin Dm Liquid Cup) 5 ml Q4H PRN PO COUGH Last administered on 08/01/18 16:32; Admin Dose 5 ML; Start 07/29/18 at 20:30 Diltiazem HCl 125 ml @ 5 mls/hr TITRATE IV Last administered on 07/30/18 09:40; Admin Dose 5 MLS/HR; Start 07/30/18 at 09:00; Status Hold Dronedarone (Multaq) 400 mg BID WITH MEALS PO Last administered on 08/14/18 17:13; Admin Dose 400 MG; Start 07/30/18 at 09:30 Propofol 100 ml @ 1.986 mls/ hr Q12H IV Last administered on 08/05/18 06:36; Admin Dose 11.916 MLS/HR; Start 08/02/18 at 10:00 Acetaminophen (Tylenol Liquid) 650 mg Q6H PRN GTB MILD PAIN (1-3) OR TEM PERATURE Last administered on 08/12/18 08:13; Admin Dose 650 MG; Start 08/03/18 at 09:30 Docusate Sodium (Colace Liquid Cup) 100 mg BID PRN GTB CONSTIPATION,,,,; Start 08/03/18 at 09:30 IV Flush (NS 10 ml) 10 ml PRN PRN IV IV PROTOCOL; Start 08/03/18 at 10:30 Fentanyl 100 ml @ 2.5 mls/hr TITRATE IV Last administered on 08/15/18 00:31; Admin Dose 5 MLS/HR; Start 08/04/18 at 09:00 Lansoprazole (Prevacid) 30 mg DAILY@06 GTB Last administered on 08/14/18 05:17; Admin Dose 30 MG; Start 08/05/18 at 06:00 Midazolam HCl 50 ml @ 1 mls/hr TITRATE IV Last administered on 08/15/18 01:17; Admin Dose 1 MLS/HR; Start 08/05/18 at 12:00 Norepinephrine 250 ml @ 1.875 mls/ hr TITRATE IV Last administered on 08/05/18 13:00; Admin Dose 30 MLS/HR; Start 08/05/18 at 13:00 Phenylephrine HCl 80 mg/Dextrose 250 ml @ 18.75 mls/ hr TITRATE IV Last administered on 08/09/18 01:42; Admin Dose 6.56 MLS/HR; Start 08/06/18 at 15:30 Vancomycin/Sodium Chloride 250 ml @ 125 mls/hr Q72H IVPB Last administered on 08/14/18 11:26; Admin Dose 125 MLS/HR; Start 08/11/18 at 11:00 Meropenem/Sodium Chloride 50 ml @ 100 mls/hr Q12 IVPB Last administered on 08/14/18 21:31; Admin Dose 100 MLS/HR; Start 08/12/18 at 21:00 Furosemide (Lasix) 20 mg BID DIURETICS IV Last administered on 08/15/18 05:37; Admin Dose 20 MG; Start 08/14/18 at 08:00 BRIAN HAGAN DO Aug 15, 2018 07:20
--- NOTE | 2018-08-15 07:25 | EEG ---
EEG NOTE Report Details DATE OF TEST: 08/14/18 HISTORY: The patient is a 73-year-old F who presents with altered mental status. This EEG is requested to rule out nonconvulsive status epilepticus. SEDATION: None. CONDITIONS OF RECORDING: This EEG was recorded digitally on the Sarnova machine, using the International 10-20 System of electrodes plus anterior temporals and [place]. STATES SAMPLED: Comatose. FINDINGS: The background is continuous and grossly symmetric...predominated by polymorphic delta activity. The normal [id number] frequency-amplitude gradient was absent. Photic stimulation does not elicit any definite driving responses or epileptiform discharges. Hyperventilation was not performed. No asymmetries, focal abnormalities or epileptiform discharges were seen. IMPRESSION: Abnormal electroencephalogram due to: severe diffuse slowing. COMMENT: The slowing of the background indicates severe, diffuse cortical dysfunction of nonspecific etiology. USAMA BURNS Aug 15, 2018 07:25
[2018-08-15] MEDS: DRONEDARONE HYDROCHLORIDE 400 MG TAB PO SCH ×2 (07:52→17:41)
[2018-08-15] MEDS: GABAPENTIN 100 MG CAP PO SCH ×2 (09:34→21:08)
[2018-08-15] MEDS: ASCORBIC ACID 500 MG TAB PO SCH ×3 (09:34→21:08)
[2018-08-15] MEDS: CALCIUM/VITAMIN D (500/200) TAB PO SCH ×2 (09:34→21:08)
[2018-08-15] MEDS: METHYLPREDNISOLONE 40 MG INJ IV SCH (09:34)
[2018-08-15] MEDS: MEROPENEM 500MG/50 ML (PMX) 50 ML IVPB SCH ×2 (09:35→21:08)
[2018-08-15] MEDS: PROPOFOL 100 ML IV SCH ×2 (09:35→22:00)
[2018-08-15] MEDS: BALSAM PERU/CASTOR OIL 60 GM TUBE TOP SCH ×2 (09:35→21:09)
--- NOTE | 2018-08-15 10:09 | CONS ---
Consult Date/Type/Reason Admit Date/Time Jul 28, 2018 at 18:16 Initial Consult Date 07/28/18 Type of Consultation: Pulm/CCM Requesting Provider: ABDIAS STAPLES MD Date/Time of Note DATE: 08/15/18 TIME: 10:06 Subjective Sedated on versed and fentanyl gtt. On [facility] ventilation. Objective Vitals Vital Signs Date Temp Pulse Resp B/P (MAP) Pulse Ox O2 O2 Flow FiO2 Time Delivery Rate 08/15/18 86 08:00 08/15/18 98.1 24 142/44 98 Mechanical 08:00 (76) Ventilator 08/15/18 40 05:03 Intake and Output 08/14/18 08/14/18 08/15/18 1515:00 23:00 07:00 IntakeIntake Total 739.5 ml 397.5 ml 52 ml OutputOutput Total 1325 ml 1215 ml 715 ml BalanceBalance -585.5 ml -817.5 ml -663 ml Exam HEENT: Neck supple; no JVD; no LAD; + ET tube CVS: Irreg irreg, S1 and S2 CHEST: Coarse rhonchi L > R ABD: Soft, NT, + BS EXT: No c/c/e NEURO: Sedated on mech vent. Results/Medications Result Diagram: 08/15/1843108/15/18 043 Results 24 hrs Laboratory Tests Test 08/15/18 04:32 08/15/18 07:00 White Blood Count 14.2 H Red Blood Count 2.80 L Hemoglobin 8.7 L Hematocrit 26.7 L Mean Corpuscular Volume 95.4 Mean Corpuscular Hemoglobin 31.1 Mean Corpuscular Hemoglobin Concent 32.6 Red Cell Distribution Width 19.0 H Platelet Count 100 #L Mean Platelet Volume 11.9 H Immature Granulocytes % 0.800 H Neutrophils % 83.0 H Lymphocytes % 11.4 L Monocytes % 4.3 Eosinophils % 0.4 Basophils % 0.1 Nucleated Red Blood Cells % 0.0 Immature Granulocytes # 0.120 H Neutrophils # 11.8 H Lymphocytes # 1.6 Monocytes # 0.6 Eosinophils # 0.1 Basophils # 0.0 Nucleated Red Blood Cells # 0.0 Sodium Level 141 Potassium Level 4.0 Chloride Level 102 Carbon Dioxide Level 30 Anion Gap 9 # Blood Urea Nitrogen 101 H Creatinine 1.37 H Est Glomerular Filtrat Rate mL/min Glucose Level 99 Calcium Level 8.3 L Phosphorus Level 4.1 Magnesium Level 2.3 Blood Gas Specimen Source Blood arterial Arterial Blood Date Drawn 08/15/2018 8:10:00 AM Arterial Blood pH (Temp corrected) 7.555 *H Arterial Blood pCO2 (Temp correct) 32.6 L Arterial Blood pO2 (Temp corrected) 94.0 H Arterial Blood HCO3 28.2 H Arterial Blood Base Excess 5.9 H Arterial Blood Oxygen Saturation 97.0 Vick Test ACCEPTAB Arterial Blood Gas Puncture Site Right Radial Arterial Blood Carboxyhemoglobin 0.2 Arterial Blood Methemoglobin 0.1 Blood Gas A-a O2 Differential 153.7 H Oxyhemoglobin Percent 96.7 Blood Gas Temperature 37.0 Blood Gas Respiration Rate 24.0 Blood Gas Actual Respiration Rate 24 Blood Gas Modality VENT - AC FiO2 40.0 Blood Gas Tidal Volume 500.0 Blood Gas Low PEEP Setting 5.0 Blood Gas Critical Value Read Back J RADHA GARAY Blood Gas Notified Whom DT Blood Gas Notified Time 08/15/2018 8:26:39 AM Home Meds Reported Medications Ondansetron Hcl* (Zofran*) 8 Mg Tablet, 8 MG PO Q6H PRN for NAUSEA AND OR VOMITING, TAB 07/28/18 Guaifenesin (Xpect) 400 Mg Tablet, 400 MG PO Q12, TAB 07/28/18 Acetaminophen* (Acetaminophen*) 650 Mg Tablet, 650 MG PO Q6H PRN for PAIN AND OR ELEVATED TEMP, #30 TAB 07/28/18 Trazodone Hcl* (Trazodone Hcl*) 50 Mg Tablet, 50 MG PO QHS, #30 TAB 07/28/18 Carisoprodol* (Carisoprodol*) 350 Mg Tablet, 350 MG PO BID PRN for MUSCLE SPASMS, TAB 07/28/18 Montelukast Sodium* (Singulair*) 10 Mg Tablet, 10 MG PO QHS, #30 TAB 07/28/18 Sennosides* (Senna Lax*) 8.6 Mg Tablet, 2 TAB PO QHS, TAB 07/28/18 Fluoxetine Hcl* (Prozac*) 20 Mg Capsule, 20 MG PO DAILY, CAP 07/28/18 Promethazine Hcl* (Phenergan* Liq) 6.25 Mg/5 Ml Syrup, 12.5 MG PO Q6H PRN for COUGH, ML 07/28/18 Lansoprazole* (Lansoprazole*) 30 Mg Capsule.dr, 30 MG PO DAILY, CAP 07/28/18 Vit C/E/Zn/Coppr/Lutein/Zeaxan (Preservision Areds 2 Softgel) 1 Each Capsule, 2 EACH PO DAILY, CAP 07/28/18 Prednisone* (Prednisone*) 20 Mg Tab, 40 MG PO DAILY, TAB 07/28/18 Chlorhexidine Gluconate (Peridex) 473 Ml Mouthwash, 15 ML MM BID, BOTTLE 07/28/18 [place]-3 Acid Ethyl Esters (Lovaza) 1 Gm Capsule, 2 GM PO DAILY, CAP 07/28/18 Hydrocodone/Acetaminophen ([place] 10-325 Tablet) 1 Each Tablet, 1 EACH PO Q4 PRN for SEVERE PAIN LEVEL 7-10, TAB 07/28/18 Multivitamins* (Theragran*) 1 Tab Tab, 1 TAB PO DAILY, TAB 07/28/18 Guaifenesin (Guaifenesin) 600 Mg Tablet.sa, 600 MG PO BID, TAB 07/28/18 Magnesium Hydroxide* (Milk Of Magnesia*) 400 Mg/5 Ml Oral.susp, 30 ML PO DAILY PRN for CHEST PAIN, ML 07/28/18 Metoprolol Tartrate* (Lopressor*) 50 Mg Tab, 50 MG PO DAILY, #60 TAB HOLD FOR SBP<110 OR HR<60 07/28/18 Atorvastatin Calcium (Atorvastatin Calcium) 10 Mg Tablet, 10 MG PO QHS, #30 TAB 07/28/18 Lidocaine (Lidocaine) 5 Gm Cream..g., 5 GM TP DAILY 07/28/18 Furosemide* (Lasix*) 20 Mg Tablet, 20 MG PO DAILY, TAB 07/28/18 Lactobacillus Rhamnosus* (Culturelle*) 1 Each Cap.sprink, 1 CAP PO DAILY, CAP 07/28/18 Ipratropium-Albuterol (Ipratropium-Albuterol) 0.5-3 Mg/3 Ml Ampul.neb, 3 ML INHALATION Q4 PRN for SHORTNESS OF BREATH, #30 VIAL 07/28/18 Gabapentin* (Gabapentin*) 100 Mg Capsule, 200 MG PO BID, #180 CAP 07/28/18 Folic Acid* (Folic Acid*) 1 Mg Tablet, 1 MG PO DAILY, TAB 07/28/18 Ferrous Sulfate* (Ferrous Sulfate*) 325 Mg Tabec, 325 MG PO TID, TAB 07/28/18 Estrogens Conjugated* (Premarin*) 0.45 Mg Tablet, 0.45 MG PO DAILY, TAB 07/28/18 Bisacodyl (Dulcolax) 10 Mg Supp.rect, 10 MG RC Q48, SUPP.RECT 07/28/18 Docusate Sodium* (Colace*) 100 Mg Capsule, 100 MG PO QHS PRN for CONSTIPATION, #60 CAP 07/28/18 Hydromorphone Hcl* (Dilaudid*) 2 Mg Tablet, 2 MG PO Q6H PRN for SEVERE PAIN LEVEL 7-10, TAB 07/28/18 Cyanocobalamin* (Vitamin B12*) 500 Mcg Tab, 500 MCG PO DAILY, TAB 07/28/18 Clonidine Hcl* (Clonidine Hcl*) 0.1 Mg Tab, 0.1 MG PO Q8, TAB 07/28/18 Clonazepam* (Clonazepam*) 0.5 Mg Tablet, 0.5 MG PO BID PRN for ANXIETY, TAB 07/28/18 Calcium Carbonate/Vitamin D3 ([place] 500+D Tablet) 1 Each Tablet, 1 EACH PO BID, TAB 07/28/18 Fluticasone/Vilanterol (Breo Ellipta 200-25 Mcg INH) 1 Each Blst.w.dev, 1 PUFF INHALATION DAILY, #1 INHALER 07/28/18 Lorazepam* (Lorazepam*) 0.5 Mg Tablet, 0.5 MG PO Q6 PRN for ANXIETY, TAB 07/28/18 Diphenhydramine Hcl* (Benadryl*) 25 Mg Cap, 25 MG PO Q8 PRN for PRN, CAP 07/28/18 Aspirin* (Aspirin* Chew) 81 Mg Tab.chew, 81 MG PO DAILY, TAB.CHEW 07/28/18 Ascorbic Acid* (Vitamin C*) 500 Mg Capsule.sa, 500 MG PO TID, CAP 07/28/18 Apixaban* (Eliquis*) 5 Mg Tablet, 5 MG PO BID, TAB 07/28/18 Hydrocortisone Acetate (Anusol-Hc) 25 Mg Supp.rect, 25 MG TN BID PRN for CONSTIPATION, SUPP.RECT 07/28/18 Amiodarone Hcl* (Amiodarone Hcl*) 200 Mg Tablet, 200 MG PO BID, #30 TAB HOLD FOR SBP<110 OR HR<60 07/28/18 Medications Current Medications Vancomycin HCl (Vanco Iv Per Pharmacy) VANCOMYCIN PER PHARMACY PER PROTOCOL XX ; Start 07/28/18 at 17:30 Albuterol/ Ipratropium (Duoneb) 3 ml Q6H RESP THERAPY HHN Last administered on 08/02/18 01:07; Admin Dose 3 ML; Start 07/28/18 at 20:00; Status Hold Calcium/Vitamin D ([place]/ Vit-D (500/200)) 1 tab BID PO Last administered on 08/15/18 09:34; Admin Dose 1 TAB; Start 07/28/18 at 21:00 Clonazepam (Klonopin) 0.5 mg BID PRN PO ANXIETY Last administered on 08/04/18 21:00; Admin Dose 0.5 MG; Start 07/28/18 at 21:00 Clonidine (Catapres) 0.1 mg TID PRN PO ELEVATED BLOOD PRESSURE Last administered on 08/13/18 14:58; Admin Dose 0.1 MG; Start 07/28/18 at 21:00 Hydromorphone HCl (Dilaudid) 2 mg Q4H PRN PO SEVERE PAIN LEVEL 7-10 Last adm inistered on 08/01/18at 23:34; Admin Dose 2 MG; Start 07/28/18 at 21:00 Docusate Sodium (Colace) 100 mg BID PRN PO CONSTIPATION; Start 07/28/18 at 21:00 Gabapentin (Neurontin) 200 mg BID PO Last administered on 08/15/18 09:34; Admin Dose 200 MG; Start 07/28/18 at 21:00 Magnesium Hydroxide (Milk Of Mag) 30 ml DAILY PRN PO CONSTIPATION; Start 07/28/18 at 21:00 Acetaminophen/ Hydrocodone Bitart ([place] (10/325)) 1 tab Q4H PRN PO MODERATE PAIN LEVEL 4-6 Last administered on 08/01/18 21:02; Admin Dose 1 TAB; Start 07/28/18 at 21:00 Carisoprodol (Soma) 350 mg BID PRN PO MUSCLE SPASMS; Start 07/28/18 at 21:00 Trazodone HCl (Desyrel) 50 mg HS PRN PO INSOMNIA Last administered on 07/29/18 20:29; Admin Dose 50 MG; Start 07/28/18 at 21:00 Ondansetron HCl (Zofran Inj) 4 mg Q6H PRN IV NAUSEA AND/OR VOMITING; Start 07/28/18 at 21:00 Methylprednisolone Sodium Succinate (Solu-Medrol) 40 mg DAILY IV Last administered on 08/15/18 09:34; Admin Dose 40 MG; Start 07/29/18 at 09:00 Ascorbic Acid (Vitamin C) 500 mg TID PO Last administered on 08/15/18 09:34; Admin Dose 500 MG; Start 07/29/18 at 09:00 Lorazepam (Ativan) 0.5 mg Q6H PRN PO ANXIETY Last administered on 08/10/18 21:28; Admin Dose 0.5 MG; Start 07/29/18 at 20:30 Guaifenesin/ Dextromethorphan (Robitussin Dm Liquid Cup) 5 ml Q4H PRN PO COUGH Last administered on 08/01/18 16:32; Admin Dose 5 ML; Start 07/29/18 at 20:30 Diltiazem HCl 125 ml @ 5 mls/hr TITRATE IV Last administered on 07/30/18 09:40; Admin Dose 5 MLS/HR; Start 07/30/18 at 09:00; Status Hold Dronedarone (Multaq) 400 mg BID WITH MEALS PO Last administered on 08/15/18 07:52; Admin Dose 400 MG; Start 07/30/18 at 09:30 Propofol 100 ml @ 1.986 mls/ hr Q12H IV Last administered on 08/05/18 06:36; Admin Dose 11.916 MLS/HR; Start 08/02/18 at 10:00 Acetaminophen (Tylenol Liquid) 650 mg Q6H PRN GTB MILD PAIN (1-3) OR TEMPERATURE Last administered on 08/12/18 08:13; Admin Dose 650 MG; Start 08/03/18 at 09:30 Docusate Sodium (Colace Liquid Cup) 100 mg BID PRN GTB CONSTIPATION,,,,; Start 08/03/18 at 09:30 IV Flush (NS 10 ml) 10 ml PRN PRN IV IV PROTOCOL; Start 08/03/18 at 10:30 Fentanyl 100 ml @ 2.5 mls/hr TITRATE IV Last administered on 08/15/18 00:31; Admin Dose 5 MLS/HR; Start 08/04/18 at 09:00 Lansoprazole (Prevacid) 30 mg DAILY@06 GTB Last administered on 08/14/18 05:17; Admin Dose 30 MG; Start 08/05/18 at 06:00 Midazolam HCl 50 ml @ 1 mls/hr TITRATE IV Last administered on 08/15/18 01:17; Admin Dose 1 MLS/HR; Start 08/05/18 at 12:00 Norepinephrine 250 ml @ 1.875 mls/ hr TITRATE IV Last administered on 08/05/18 13:00; Admin Dose 30 MLS/HR; Start 08/05/18 at 13:00 Phenylephrine HCl 80 mg/Dextrose 250 ml @ 18.75 mls/ hr TITRATE IV Last administered on 08/09/18 01:42; Admin Dose 6.56 MLS/HR; Start 08/06/18 at 15:30 Vancomycin/Sodium Chloride 250 ml @ 125 mls/hr Q72H IVPB Last administered on 08/14/18 11:26; Admin Dose 125 MLS/HR; Start 08/11/18 at 11:00 Meropenem/Sodium Chloride 50 ml @ 100 mls/hr Q12 IVPB Last administered on 08/15/18 09:35; Admin Dose 100 MLS/HR; Start 08/12/18 at 21:00 Furosemide (Lasix) 20 mg BID DIURETICS IV Last administered on 08/15/18 05:37; Admin Dose 20 MG; Start 08/14/18 at 08:00 Assessment/Plan Assessment/Plan (Daily) IMP: 1. Acute CVA with encephalopathy 2. Acute on chronic hypoxemic respiratory failure with ongoing bilateral infiltrates 3. Renal insufficiency 4. Severe sepsis likely secondary to pneumonia 5. A. fib with RVR 6. Thrombocytopenia RECS: 1. Vent: reduce rate to 18 and Vt to 400 2. Am ABG 3. Await family decision regarding transition to comfort measures Critical care 40 minutes CHET RECINOS MD Aug 15, 2018 10:09
--- NOTE | 2018-08-15 10:52 | PN ---
Date/Time of Note Date/Time of Note DATE: 08/15/18 TIME: 10:51 Assessment/Plan VTE Prophylaxis Risk score (from [facility])>0 risk: 10 SCD applied (from [facility]): Yes Pharmacological prophylaxis: LMWH Lines/Catheters IV Catheter Type (from [facility]): PICC Line Central line still needed: Yes Urinary Cath still in place: Yes Reason Cath still needed: skin wounds contaminated by urine Assessment/Plan Hospital Course - Supratentorial and infratentorial subacute infarcts, with minimal 1.3 mm [id number] midline shift. EEG revealed abnormal EEG due to severe diffuse slowing, no epileptiform discharges were seen. Dr. Barnes is following in neurology consultation. - Acute hypoxemic respiratory failure due to healthcare-acquired pneumonia/ ARDS. Continue ventilatory support, steroids. from pulmonary standpoint. - Anemia of acute blood loss secondary to nosebleed admission, resolved. status post blood transfusion, continue to monitor hemoglobin and hematocrit. - Sepsis with gram-positive bacteremia. Continue antibiotics per ID. Dr. Brown is following in infection disease consultation. - Bilateral pulmonary fibrosis. Continue supplemental oxygen and symptomatic treatment with steroids. - Chronic obstructive pulmonary disease. Continue DuoNeb and steroids. - Nonobstructive coronary artery disease as per cardiac catheterization in 2013. Dr. Frost is following from cardiac standpoint. - Paroxysmal atrial fibrillation. Patient had an episode of atrial fibrillation with rapid ventricular response and was on Cardizem drip, currently in sinus rhythm. - Hypertension. Continue metoprolol and Lasix. p.r.n. clonidine. - Peripheral artery disease, status post stent. - Dyslipidemia. Continue Lipitor. - MARQUES, Dr. Salazar from nephrology standpoint. - Recent right hip fracture, status post surgery. - Pancreatic head mass. As per patient, she has been going to a specialist every year for followup. - Anxiety and depression. - Poor prognosis, patient is chemical code only. Dr. Greenwood is following in palliative services consultation. Result Diagram: 08/15/1843108/15/182 Results 24hrs Laboratory Tests Test 08/15/18 04:32 08/15/18 07:00 White Blood Count 14.2 H Red Blood Count 2.80 L Hemoglobin 8.7 L Hematocrit 26.7 L Mean Corpuscular Volume 95.4 Mean Corpuscular Hemoglobin 31.1 Mean Corpuscular Hemoglobin Concent 32.6 Red Cell Distribution Width 19.0 H Platelet Count 100 #L Mean Platelet Volume 11.9 H Immature Granulocytes % 0.800 H Neutrophils % 83.0 H Lymphocytes % 11.4 L Monocytes % 4.3 Eosinophils % 0.4 Basophils % 0.1 Nucleated Red Blood Cells % 0.0 Immature Granulocytes # 0.120 H Neutrophils # 11.8 H Lymphocytes # 1.6 Monocytes # 0.6 Eosinophils # 0.1 Basophils # 0.0 Nucleated Red Blood Cells # 0.0 Sodium Level 141 Potassium Level 4.0 Chloride Level 102 Carbon Dioxide Level 30 Anion Gap 9 # Blood Urea Nitrogen 101 H Creatinine 1.37 H Est Glomerular Filtrat Rate mL/min Glucose Level 99 Calcium Level 8.3 L Phosphorus Level 4.1 Magnesium Level 2.3 Blood Gas Specimen Source Blood arterial Arterial Blood Date Drawn 08/15/2018 8:10:00 AM Arterial Blood pH (Temp corrected) 7.555 *H Arterial Blood pCO2 (Temp correct) 32.6 L Arterial Blood pO2 (Temp corrected) 94.0 H Arterial Blood HCO3 28.2 H Arterial Blood Base Excess 5.9 H Arterial Blood Oxygen Saturation 97.0 Vick Test ACCEPTAB Arterial Blood Gas Puncture Site Right Radial Arterial Blood Carboxyhemoglobin 0.2 Arterial Blood Methemoglobin 0.1 Blood Gas A-a O2 Differential 153.7 H Oxyhemoglobin Percent 96.7 Blood Gas Temperature 37.0 Blood Gas Respiration Rate 24.0 Blood Gas Actual Respiration Rate 24 Blood Gas Modality VENT - AC FiO2 40.0 Blood Gas Tidal Volume 500.0 Blood Gas Low PEEP Setting 5.0 Blood Gas Critical Value Read Back J RADHA GARAY Blood Gas Notified Whom DT Blood Gas Notified Time 08/15/2018 8:26:39 AM Subjective 24 Hr Interval Summary Free Text/Dictation Patient sedated and intubated Exam/Review of Systems Exam Vitals Vital Signs Date Temp Pulse Resp B/P (MAP) Pulse Ox O2 O2 Flow FiO2 Time Delivery Rate 08/15/18 86 08:00 08/15/18 40 08:00 08/15/18 98.1 24 142/44 98 Mechanical 08:00 (76) Ventilator Intake and Output 08/14/18 08/14/18 08/15/18 1515:00 23:00 07:00 IntakeIntake Total 739.5 ml 397.5 ml 52 ml OutputOutput Total 1325 ml 1215 ml 715 ml BalanceBalance -585.5 ml -817.5 ml -663 ml Constitutional: well developed Head: normocephalic, atraumatic Neck: supple Respiratory: diminished breath sounds Cardiovascular: regular rate and rhythm Gastrointestinal: soft, non-tender Extremities: normal pulses Results Results 24hrs Laboratory Tests Test 08/15/18 04:32 08/15/18 07:00 White Blood Count 14.2 H Red Blood Count 2.80 L Hemoglobin 8.7 L Hematocrit 26.7 L Mean Corpuscular Volume 95.4 Mean Corpuscular Hemoglobin 31.1 Mean Corpuscular Hemoglobin Concent 32.6 Red Cell Distribution Width 19.0 H Platelet Count 100 #L Mean Platelet Volume 11.9 H Immature Granulocytes % 0.800 H Neutrophils % 83.0 H Lymphocytes % 11.4 L Monocytes % 4.3 Eosinophils % 0.4 Basophils % 0.1 Nucleated Red Blood Cells % 0.0 Immature Granulocytes # 0.120 H Neutrophils # 11.8 H Lymphocytes # 1.6 Monocytes # 0.6 Eosinophils # 0.1 Basophils # 0.0 Nucleated Red Blood Cells # 0.0 Sodium Level 141 Potassium Level 4.0 Chloride Level 102 Carbon Dioxide Level 30 Anion Gap 9 # Blood Urea Nitrogen 101 H Creatinine 1.37 H Est Glomerular Filtrat Rate mL/min Glucose Level 99 Calcium Level 8.3 L Phosphorus Level 4.1 Magnesium Level 2.3 Blood Gas Specimen Source Blood arterial Arterial Blood Date Drawn 08/15/2018 8:10:00 AM Arterial Blood pH (Temp corrected) 7.555 *H Arterial Blood pCO2 (Temp correct) 32.6 L Arterial Blood pO2 (Temp corrected) 94.0 H Arterial Blood HCO3 28.2 H Arterial Blood Base Excess 5.9 H Arterial Blood Oxygen Saturation 97.0 Vick Test ACCEPTAB Arterial Blood Gas Puncture Site Right Radial Arterial Blood Carboxyhemoglobin 0.2 Arterial Blood Methemoglobin 0.1 Blood Gas A-a O2 Differential 153.7 H Oxyhemoglobin Percent 96.7 Blood Gas Temperature 37.0 Blood Gas Respiration Rate 24.0 Blood Gas Actual Respiration Rate 24 Blood Gas Modality VENT - AC FiO2 40.0 Blood Gas Tidal Volume 500.0 Blood Gas Low PEEP Setting 5.0 Blood Gas Critical Value Read Back J RADHA RN Blood Gas Notified Whom DT Blood Gas Notified Time 08/15/2018 8:26:39 AM Medications Medication Current Medications Vancomycin HCl (Vanco Iv Per Pharmacy) VANCOMYCIN PER PHARMACY PER PROTOCOL XX ; Start 07/28/18 at 17:30 Albuterol/ Ipratropium (Duoneb) 3 ml Q6H RESP THERAPY HHN Last administered on 08/02/18 01:07; Admin Dose 3 ML; Start 07/28/18 at 20:00; Status Hold Calcium/Vitamin D (Oyster Shell/ Vit-D (500/200)) 1 tab BID PO Last administered on 08/15/18 09:34; Admin Dose 1 TAB; Start 07/28/18 at 21:00 Clonazepam (Klonopin) 0.5 mg BID PRN PO ANXIETY Last administered on 08/04/18 21:00; Admin Dose 0.5 MG; Start 07/28/18 at 21:00 Clonidine (Catapres) 0.1 mg TID PRN PO ELEVATED BLOOD PRESSURE Last administered on 08/13/18 14:58; Admin Dose 0.1 MG; Start 07/28/18 at 21:00 Hydromorphone HCl (Dilaudid) 2 mg Q4H PRN PO SEVERE PAIN LEVEL 7-10 Last administered on 08/01/18 23:34; Admin Dose 2 MG; Start 07/28/18 at 21:00 Docusate Sodium (Colace) 100 mg BID PRN PO CONSTIPATION; Start 07/28/18 at 21:00 Gabapentin (Neurontin) 200 mg BID PO Last administered on 08/15/18 09:34; Admin Dose 200 MG; Start 07/28/18 at 21:00 Magnesium Hydroxide (Milk Of Mag) 30 ml DAILY PRN PO CONSTIPATION; Start 07/28/18 at 21:00 Acetaminophen/ Hydrocodone Bitart ([place] (10/325)) 1 tab Q4H PRN PO MODERATE PAIN LEVEL 4-6 Last administered on 08/01/18 21:02; Admin Dose 1 TAB; Start 07/28/18 at 21:00 Carisoprodol (Soma) 350 mg BID PRN PO MUSCLE SPASMS; Start 07/28/18 at 21:00 Trazodone HCl (Desyrel) 50 mg HS PRN PO INSOMNIA Last administered on 07/29/18 20:29; Admin Dose 50 MG; Start 07/28/18 at 21:00 Ondansetron HCl (Zofran Inj) 4 mg Q6H PRN IV NAUSEA AND/OR VOMITING; Start 07/28/18 at 21:00 Methylprednisolone Sodium Succinate (Solu-Medrol) 40 mg DAILY IV Last adm inistered on 08/15/18 09:34; Admin Dose 40 MG; Start 07/29/18 at 09:00 Ascorbic Acid (Vitamin C) 500 mg TID PO Last administered on 08/15/18 09:34; Admin Dose 500 MG; Start 07/29/18 at 09:00 Lorazepam (Ativan) 0.5 mg Q6H PRN PO ANXIETY Last administered on 08/10/18 21:28; Admin Dose 0.5 MG; Start 07/29/18 at 20:30 Guaifenesin/ Dextromethorphan (Robitussin Dm Liquid Cup) 5 ml Q4H PRN PO COUGH Last administered on 08/01/18 16:32; Admin Dose 5 ML; Start 07/29/18 at 20:30 Diltiazem HCl 125 ml @ 5 mls/hr TITRATE IV Last administered on 07/30/18 09:40; Admin Dose 5 MLS/HR; Start 07/30/18 at 09:00; Status Hold Dronedarone (Multaq) 400 mg BID WITH MEALS PO Last administered on 08/15/18 07:52; Admin Dose 400 MG; Start 07/30/18 at 09:30 Propofol 100 ml @ 1.986 mls/ hr Q12H IV Last administered on 08/05/18 06:36; Admin Dose 11.916 MLS/HR; Start 08/02/18 at 10:00 Acetaminophen (Tylenol Liquid) 650 mg Q6H PRN GTB MILD PAIN (1-3) OR TEMPERATURE Last administered on 08/12/18 08:13; Admin Dose 650 MG; Start 08/03/18 at 09:30 Docusate Sodium (Colace Liquid Cup) 100 mg BID PRN GTB CONSTIPATION,,,,; Start 08/03/18 at 09:30 IV Flush (NS 10 ml) 10 ml PRN PRN IV IV PROTOCOL; Start 08/03/18 at 10:30 Fentanyl 100 ml @ 2.5 mls/hr TITRATE IV Last administered on 08/15/18 00:31; Admin Dose 5 MLS/HR; Start 08/04/18 at 09:00 Lansoprazole (Prevacid) 30 mg DAILY@06 GTB Last administered on 08/14/18 05:17; Admin Dose 30 MG; Start 08/05/18 at 06:00 Midazolam HCl 50 ml @ 1 mls/hr TITRATE IV Last administered on 08/15/18 01:17; Admin Dose 1 MLS/HR; Start 08/05/18 at 12:00 Norepinephrine 250 ml @ 1.875 mls/ hr TITRATE IV Last administered on 08/05/18 13:00; Admin Dose 30 MLS/HR; Start 08/05/18 at 13:00 Phenylephrine HCl 80 mg/Dextrose 250 ml @ 18.75 mls/ hr TITRATE IV Last administered on 08/09/18 01:42; Admin Dose 6.56 MLS/HR; Start 08/06/18 at 15:30 Vancomycin/Sodium Chloride 250 ml @ 125 mls/hr Q72H IVPB Last administered on 08/14/18 11:26; Admin Dose 125 MLS/HR; Start 08/11/18 at 11:00 Meropenem/Sodium Chloride 50 ml @ 100 mls/hr Q12 IVPB Last administered on 08/15/18 09:35; Admin Dose 100 MLS/HR; Start 08/12/18 at 21:00 Furosemide (Lasix) 20 mg BID DIURETICS IV Last administered on 08/15/18 05:37; Admin Dose 20 MG; Start 08/14/18 at 08:00 JOSÉ CEVALLOS Aug 15, 2018 10:52
--- NOTE | 2018-08-15 12:51 | CONS ---
Assessment/Plan Assessment/Plan Hospital Course (Demo Recall) Patient remains unchanged no fevers overnight vital signs stable WBC 14.2 platelets 100, neutrophils 83 BUN 101 creatinine 1.37 Indwelling: Endotracheal tube, NG tube, [place], PICC line Microbiology: Sputum culture on August 06 grew MRSA and Ivania albicans Antimicrobials: Vancomycin, fluconazole Merrem Allergies: Penicillin, tetracycline Physical examination: This is a fragile chronically ill-appearing wasted elderly woman who is in no distress. Head atraumatic normocephalic sclera nonicteric. Neck is supple. Chest rise symmetrical breath sounds diminished bases. Heart: S1-S2. Abdomen soft bowel sounds present extremities without cyanosis. Assessment: 1. Severe sepsis 2. Acute on chronic respiratory failure, status post intubation 08/02/18 3. Healthcare associated pneumonia 4. Coag negative staph bacteremia, possibly contaminant 5. Anemia with progressive thrombocytopenia 6. ARF 5. Peripheral arterial disease status post stent 6. Pancreatic head mass, patient is following with a specialist yearly 7. Recent right hip fracture status post surgical intervention 8. Encephalopathy, acute Plan: Remains unchanged, continue antibiotics, pulmonary/neurology r ecommendations, pending family's decision regarding plan of care Consultation Date/Type/Reason Admit Date/Time Jul 28, 2018 at 18:16 Initial Consult Date 07/28/18 Type of Consult id Requesting Provider: ABDIAS STAPLES MD Date/Time of Note DATE: 08/15/18 TIME: 12:50 Exam/Review of Systems Exam Vitals Vital Signs Date Temp Pulse Resp B/P (MAP) Pulse Ox O2 O2 Flow FiO2 Time Delivery Rate 08/15/18 91 12:00 08/15/18 40 08:00 08/15/18 98.1 24 142/44 98 Mechanical 08:00 (76) Ventilator Intake and Output 08/14/18 08/14/18 08/15/18 1515:00 23:00 07:00 IntakeIntake Total 739.5 ml 397.5 ml 60 ml OutputOutput Total 1325 ml 1215 ml 715 ml BalanceBalance -585.5 ml -817.5 ml -655 ml Results Result Diagram: 08/15/18 0432 08/15/18 0432 Results 24hrs Laboratory Tests Test 08/15/18 04:32 08/15/18 07:00 White Blood Count 14.2 H Red Blood Count 2.80 L Hemoglobin 8.7 L Hematocrit 26.7 L Mean Corpuscular Volume 95.4 Mean Corpuscular Hemoglobin 31.1 Mean Corpuscular Hemoglobin Concent 32.6 Red Cell Distribution Width 19.0 H Platelet Count 100 #L Mean Platelet Volume 11.9 H Immature Granulocytes % 0.800 H Neutrophils % 83.0 H Lymphocytes % 11.4 L Monocytes % 4.3 Eosinophils % 0.4 Basophils % 0.1 Nucleated Red Blood Cells % 0.0 Immature Granulocytes # 0.120 H Neutrophils # 11.8 H Lymphocytes # 1.6 Monocytes # 0.6 Eosinophils # 0.1 Basophils # 0.0 Nucleated Red Blood Cells # 0.0 Sodium Level 141 Potassium Level 4.0 Chloride Level 102 Carbon Dioxide Level 30 Anion Gap 9 # Blood Urea Nitrogen 101 H Creatinine 1.37 H Est Glomerular Filtrat Rate mL/min Glucose Level 99 Calcium Level 8.3 L Phosphorus Level 4.1 Magnesium Level 2.3 Blood Gas Specimen Source Blood arterial Arterial Blood Date Drawn 08/15/2018 8:10:00 AM Arterial Blood pH (Temp corrected) 7.555 *H Arterial Blood pCO2 (Temp correct) 32.6 L Arterial Blood pO2 (Temp corrected) 94.0 H Arterial Blood HCO3 28.2 H Arterial Blood Base Excess 5.9 H Arterial Blood Oxygen Saturation 97.0 Vick Test ACCEPTAB Arterial Blood Gas Puncture Site Right Radial Arterial Blood Carboxyhemoglobin 0.2 Arterial Blood Methemoglobin 0.1 Blood Gas A-a O2 Differential 153.7 H Oxyhemoglobin Percent 96.7 Blood Gas Temperature 37.0 Blood Gas Respiration Rate 24.0 Blood Gas Actual Respiration Rate 24 Blood Gas Modality VENT - AC FiO2 40.0 Blood Gas Tidal Volume 500.0 Blood Gas Low PEEP Setting 5.0 Blood Gas Critical Value Read Back Claudio GARCIA RN Blood Gas Notified Whom DT Blood Gas Notified Time 08/15/2018 8:26:39 AM Medications Medication Current Medications Vancomycin HCl (Vanco Iv Per Pharmacy) VANCOMYCIN PER PHARMACY PER PROTOCOL XX ; Start 07/28/18 at 17:30 Albuterol/ Ipratropium (Duoneb) 3 ml Q6H RESP THERAPY HHN Last administered on 08/02/18at 01:07; Admin Dose 3 ML; Start 07/28/18 at 20:00; Status Hold Calcium/Vitamin D (Oyster Shell/ Vit-D (500/200)) 1 tab BID PO Last administered on 08/15/18 09:34; Admin Dose 1 TAB; Start 07/28/18 at 21:00 Clonazepam (Klonopin) 0.5 mg BID PRN PO ANXIETY Last administered on 08/04/18 21:00; Admin Dose 0.5 MG; Start 07/28/18 at 21:00 Clonidine (Catapres) 0.1 mg TID PRN PO ELEVATED BLOOD PRESSURE Last administered on 08/13/18 14:58; Admin Dose 0.1 MG; Start 07/28/18 at 21:00 Hydromorphone HCl (Dilaudid) 2 mg Q4H PRN PO SEVERE PAIN LEVEL 7-10 Last administered on 08/01/18 23:34; Admin Dose 2 MG; Start 07/28/18 at 21:00 Docusate Sodium (Colace) 100 mg BID PRN PO CONSTIPATION; Start 07/28/18 at 21:00 Gabapentin (Neurontin) 200 mg BID PO Last administered on 08/15/18 09:34; Admin Dose 200 MG; Start 07/28/18 at 21:00 Magnesium Hydroxide (Milk Of Mag) 30 ml DAILY PRN PO CONSTIPATION; Start 07/28/18 at 21:00 Acetaminophen/ Hydrocodone Bitart ([place] (10/325)) 1 tab Q4H PRN PO MODERATE PAIN LEVEL 4-6 Last administered on 08/01/18 21:02; Admin Dose 1 TAB; Start 07/28/18 at 21:00 Carisoprodol (Soma) 350 mg BID PRN PO MUSCLE SPASMS; Start 07/28/18 at 21:00 Trazodone HCl (Desyrel) 50 mg HS PRN PO INSOMNIA Last administered on 07/29/18 20:29; Admin Dose 50 MG; Start 07/28/18 at 21:00 Ondansetron HCl (Zofran Inj) 4 mg Q6H PRN IV NAUSEA AND/OR VOMITING; Start 07/28/18 at 21:00 Methylprednisolone Sodium Succinate (Solu-Medrol) 40 mg DAILY IV Last administered on 08/15/18 09:34; Admin Dose 40 MG; Start 07/29/18 at 09:00 Ascorbic Acid (Vitamin C) 500 mg TID PO Last administered on 08/15/18 09:34; Admin Dose 500 MG; Start 07/29/18 at 09:00 Lorazepam (Ativan) 0.5 mg Q6H PRN PO ANXIETY Last administered on 08/10/18 21:28; Admin Dose 0.5 MG; Start 07/29/18 at 20:30 Guaifenesin/ Dextromethorphan (Robitussin Dm Liquid Cup) 5 ml Q4H PRN PO COUGH Last administered on 08/01/18 16:32; Admin Dose 5 ML; Start 07/29/18 at 20:30 Diltiazem HCl 125 ml @ 5 mls/hr TITRATE IV Last administered on 07/30/18 09:40; Admin Dose 5 MLS/HR; Start 07/30/18 at 09:00; Status Hold Dronedarone (Multaq) 400 mg BID WITH MEALS PO Last administered on 08/15/18 0 7:52; Admin Dose 400 MG; Start 07/30/18 at 09:30 Propofol 100 ml @ 1.986 mls/ hr Q12H IV Last administered on 08/05/18 06:36; Admin Dose 11.916 MLS/HR; Start 08/02/18 at 10:00 Acetaminophen (Tylenol Liquid) 650 mg Q6H PRN GTB MILD PAIN (1-3) OR TEMPERATURE Last administered on 08/12/18 08:13; Admin Dose 650 MG; Start 08/03/18 at 09:30 Docusate Sodium (Colace Liquid Cup) 100 mg BID PRN GTB CONSTIPATION,,,,; Start 08/03/18 at 09:30 IV Flush (NS 10 ml) 10 ml PRN PRN IV IV PROTOCOL; Start 08/03/18 at 10:30 Fentanyl 100 ml @ 2.5 mls/hr TITRATE IV Last administered on 08/15/18 00:31; Admin Dose 5 MLS/HR; Start 08/04/18 at 09:00 Lansoprazole (Prevacid) 30 mg DAILY@06 GTB Last administered on 08/14/18 05:17; Admin Dose 30 MG; Start 08/05/18 at 06:00 Midazolam HCl 50 ml @ 1 mls/hr TITRATE IV Last administered on 08/15/18 01:17; Admin Dose 1 MLS/HR; Start 08/05/18 at 12:00 Norepinephrine 250 ml @ 1.875 mls/ hr TITRATE IV Last administered on 08/05/18at 13:00; Admin Dose 30 MLS/HR; Start 08/05/18 at 13:00 Phenylephrine HCl 80 mg/Dextrose 250 ml @ 18.75 mls/ hr TITRATE IV Last admin istered on 08/09/18at 01:42; Admin Dose 6.56 MLS/HR; Start 08/06/18 at 15:30 Vancomycin/Sodium Chloride 250 ml @ 125 mls/hr Q72H IVPB Last administered on 08/14/18at 11:26; Admin Dose 125 MLS/HR; Start 08/11/18 at 11:00 Meropenem/Sodium Chloride 50 ml @ 100 mls/hr Q12 IVPB Last administered on 08/15/18at 09:35; Admin Dose 100 MLS/HR; Start 08/12/18 at 21:00 Furosemide (Lasix) 20 mg BID DIURETICS IV Last administered on 08/15/18at 05:37; Admin Dose 20 MG; Start 08/14/18 at 08:00 ANDREW SMITH NP Aug 15, 2018 12:51
--- NOTE | 2018-08-15 14:45 | CONS ---
Assessment/Plan Assessment/Plan Hospital Course 73 yo F with multiple cerebrovascular risk factors who presents with acute respiratory failure, requiring emergent intubation. It was noted that pt was unresponsive after sedation was held... for which neurology is consulted. She is reported to have had multiple episodes of paroxysmal atrial fibrillation over the past few days, which raised clinical suspicion for stroke. CTH confirmed multiple large acute infarcts b/l... EEG is without epileptiform activity to suggest superimposed subclinical seizure. Reoeat EEG is the same. Echo is unrevealing. CUS is most notable for 50-69% R ICA stenosis. P: Cont asa daily for stroke prevention Hold Lipitor (LDL is within goal < 70) Hold sedating medications where possible Other medical management per primary Will follow clinically Consultation Date/Type/Reason Admit Date/Time Jul 28, 2018 at 18:16 Type of Consult Neurology Reason for Consultation ams Requesting Provider: ABDIAS STAPLES MD Date/Time of Note DATE: 08/15/18 TIME: 14:45 24 HR Interval Summary Free Text/Dictation Continues critical care. S/p EEG. Condition remains unchanged from prior. Subjective hx not possible: pt non-verbal, pt critical status Exam Vital Signs Vitals Vital Signs Date Temp Pulse Resp B/P (MAP) Pulse Ox O2 O2 Flow FiO2 Time Delivery Rate 08/15/18 91 12:00 08/15/18 40 08:00 08/15/18 98.1 24 142/44 98 Mechanical 08:00 (76) Ventilator Intake and Output 08/14/18 08/14/18 08/15/18 1515:00 23:00 07:00 IntakeIntake Total 739.5 ml 397.5 ml 60 ml OutputOutput Total 1325 ml 1215 ml 715 ml BalanceBalance -585.5 ml -817.5 ml -655 ml Exam PE: Gen Appearance: No Apparent Distress HEENT: Intubated; has NGT Cardiovascular: Regular rate Abdomen: Soft Extremities: Dry NE: The patient was comatose. Cranial nerve examination was limited by mental status. Pupils were equal and sluggishly reactive to light. There was no afferent pupillary defect. Funduscopic examination was limited. Face was grossly symmetric, w/ present corneal reflexes. Tone was normal. Muscle bulk was normal. I did not see fasciculations. The patient minimally withdrew RLE to noxious stimulation; did not withdraw to noxious stimuli in the other extremities. Coordination and gait testing was limited by mental status. Arm and leg reflexes were symmetric. Connell's sign was absent. Plantar responses were mute. CONNER NUÑEZ NP Aug 15, 2018 14:45
--- NOTE | 2018-08-15 22:53 | ERD ---
ER Documentation Chief Complaint Chief Complaint bandar perea from [facility] sn[facility] for possible pneumonia, cough HPI This is a 73-year-old female that presented to the emergency department brought in from [facility] for a productive cough. The patient has a past medical history of nonobstructive coronary artery disease (cardiac catheterization in 2012) , COPD, hypertension, paroxysmal atrial fibrillation, peripheral vascular disease status post PCI, dyslipidemia, hypothyroidism, anxiety and depression. The patient developed acute respiratory failure back in [address] [facility]. At that time patient underwent tracheostomy and G-tube placement which she was subsequently decannulated. G tube was also removed. The patient was sent to a [facility] and [facility] and was re hospitalized at [facility] in 06/2016 after a fall which led to splenic laceration. The patient underwent embolization of splenic artery and again underwent tracheostomy and G-tube placement and was sent to [facility]. The patient from [facility] was sent to [facility] subacute unit and after decannulation, she was sent to [facility] alf [facility]. Meanwhile G-tube was also removed. The patient few weeks ago, was sent home and her respiratory status was stable. The patient was not even requiring oxygen. The patient, however, sustained a fall at home and was taken to [facility] and was diagnosed with right hip fracture. The patient underwent RF and after about a week, she was sent back to [facility] for recuperation. The patient at that time was seen by Dr. Pack at a alf facility yesterday due to cough, shortness of breath and fever. The patient was noted to be hypoxemic and had to be put on 4 to 5 liters of oxygen via nasal cannula. The patient also had a fever around 100. The patient was advised to go to the hospital, however, she refused. I explained to her that she could get worse and she needs close monitoring. However, she still did not want to come to the hospital. This morning, I was called by [facility] nursing [facility]'s staff that she was getting worse as far as respiratory status is concerned. Meanwhile, I had ordered a stat workup at [facility] and had started her on vancomycin and cefepime along with systemic steroids,& breathing treatment. X-ray done yesterday did reveal bilateral infiltrate and the patient also had leukocytosis. The patient at this time denies any chest pain, no reported hemoptysis. No reported leg pain, no leg edema. No reported resting leg pain. No reported vomiting, no reported bleeding from any site. Nursing staff indicated that the patient looked pale and appeared to have severe dyspnea at rest and therefore was brought to the emergency department by EMS for further evaluation. She denies a headache dizziness and no syncope or near syncope episode. There is been no recent fevers. No constipation vomiting or diarrhea. ROS All systems reviewed and are negative except as per history of present illness. Medications Home Meds Reported Medications Ondansetron Hcl* (Zofran*) 8 Mg Tablet, 8 MG PO Q6H PRN for NAUSEA AND OR VOMITING, TAB 07/28/18 Guaifenesin (Xpect) 400 Mg Tablet, 400 MG PO Q12, TAB 07/28/18 Acetaminophen* (Acetaminophen*) 650 Mg Tablet, 650 MG PO Q6H PRN for PAIN AND OR ELEVATED TEMP, #30 TAB 07/28/18 Trazodone Hcl* (Trazodone Hcl*) 50 Mg Tablet, 50 MG PO QHS, #30 TAB 07/28/18 Carisoprodol* (Carisoprodol*) 350 Mg Tablet, 350 MG PO BID PRN for MUSCLE SPASM S, TAB 07/28/18 Montelukast Sodium* (Singulair*) 10 Mg Tablet, 10 MG PO QHS, #30 TAB 07/28/18 Sennosides* (Senna Lax*) 8.6 Mg Tablet, 2 TAB PO QHS, TAB 07/28/18 Fluoxetine Hcl* (Prozac*) 20 Mg Capsule, 20 MG PO DAILY, CAP 07/28/18 Promethazine Hcl* (Phenergan* Liq) 6.25 Mg/5 Ml Syrup, 12.5 MG PO Q6H PRN for COUGH, ML 07/28/18 Lansoprazole* (Lansoprazole*) 30 Mg Capsule.dr, 30 MG PO DAILY, CAP 07/28/18 Vit C/E/Zn/Coppr/Lutein/Zeaxan (Preservision Areds 2 Softgel) 1 Each Capsule, 2 EACH PO DAILY, CAP 07/28/18 Prednisone* (Prednisone*) 20 Mg Tab, 40 MG PO DAILY, TAB 07/28/18 Chlorhexidine Gluconate (Peridex) 473 Ml Mouthwash, 15 ML MM BID, BOTTLE 07/28/18 Paragon-3 Acid Ethyl Esters (Lovaza) 1 Gm Capsule, 2 GM PO DAILY, CAP 07/28/18 Hydrocodone/Acetaminophen ([place] 10-325 Tablet) 1 Each Tablet, 1 EACH PO Q4 PRN for SEVERE PAIN LEVEL 7-10, TAB 07/28/18 Multivitamins* (Theragran*) 1 Tab Tab, 1 TAB PO DAILY, TAB 07/28/18 Guaifenesin (Guaifenesin) 600 Mg Tablet.sa, 600 MG PO BID, TAB 07/28/18 Magnesium Hydroxide* (Milk Of Magnesia*) 400 Mg/5 Ml Oral.susp, 30 ML PO DAILY PRN for CHEST PAIN, ML 07/28/18 Metoprolol Tartrate* (Lopressor*) 50 Mg Tab, 50 MG PO DAILY, #60 TAB HOLD FOR SBP<110 OR HR<60 07/28/18 Atorvastatin Calcium (Atorvastatin Calcium) 10 Mg Tablet, 10 MG PO QHS, #30 TAB 07/28/18 Lidocaine (Lidocaine) 5 Gm Cream..g., 5 GM TP DAILY 07/28/18 Furosemide* (Lasix*) 20 Mg Tablet, 20 MG PO DAILY, TAB 07/28/18 Lactobacillus Rhamnosus* (Culturelle*) 1 Each Cap.sprink, 1 CAP PO DAILY, CAP 07/28/18 Ipratropium-Albuterol (Ipratropium-Albuterol) 0.5-3 Mg/3 Ml Ampul.neb, 3 ML INHALATION Q4 PRN for SHORTNESS OF BREATH, #30 VIAL 07/28/18 Gabapentin* (Gabapentin*) 100 Mg Capsule, 200 MG PO BID, #180 CAP 07/28/18 Folic Acid* (Folic Acid*) 1 Mg Tablet, 1 MG PO DAILY, TAB 07/28/18 Ferrous Sulfate* (Ferrous Sulfate*) 325 Mg Tabec, 325 MG PO TID, TAB 07/28/18 Estrogens Conjugated* (Premarin*) 0.45 Mg Tablet, 0.45 MG PO DAILY, TAB 07/28/18 Bisacodyl (Dulcolax) 10 Mg Supp.rect, 10 MG RC Q48, SUPP.RECT 07/28/18 Docusate Sodium* (Colace*) 100 Mg Capsule, 100 MG PO QHS PRN for CONSTIPATION, #60 CAP 07/28/18 Hydromorphone Hcl* (Dilaudid*) 2 Mg Tablet, 2 MG PO Q6H PRN for SEVERE PAIN LEVEL 7-10, TAB 07/28/18 Cyanocobalamin* (Vitamin B12*) 500 Mcg Tab, 500 MCG PO DAILY, TAB 07/28/18 Clonidine Hcl* (Clonidine Hcl*) 0.1 Mg Tab, 0.1 MG PO Q8, TAB 07/28/18 Clonazepam* (Clonazepam*) 0.5 Mg Tablet, 0.5 MG PO BID PRN for ANXIETY, TAB 07/28/18 Calcium Carbonate/Vitamin D3 ([place]ysco 500+D Tablet) 1 Each Tablet, 1 EACH PO BID, TAB 07/28/18 Fluticasone/Vilanterol (Breo Ellipta 200-25 Mcg INH) 1 Each Blst.w.dev, 1 PUFF INHALATION DAILY, #1 INHALER 07/28/18 Lorazepam* (Lorazepam*) 0.5 Mg Tablet, 0.5 MG PO Q6 PRN for ANXIETY, TAB 07/28/18 Diphenhydramine Hcl* (Benadryl*) 25 Mg Cap, 25 MG PO Q8 PRN for PRN, CAP 07/28/18 Aspirin* (Aspirin* Chew) 81 Mg Tab.chew, 81 MG PO DAILY, TAB.CHEW 07/28/18 Ascorbic Acid* (Vitamin C*) 500 Mg Capsule.sa, 500 MG PO TID, CAP 07/28/18 Apixaban* (Eliquis*) 5 Mg Tablet, 5 MG PO BID, TAB 07/28/18 Hydrocortisone Acetate (Anusol-Hc) 25 Mg Supp.rect, 25 MG CA BID PRN for CONSTIPATION, SUPP.RECT 07/28/18 Amiodarone Hcl* (Amiodarone Hcl*) 200 Mg Tablet, 200 MG PO BID, #30 TAB HOLD FOR SBP<110 OR HR<60 07/28/18 Allergies Allergies: Coded Allergies: Penicillins (Verified Allergy, Unknown, SWELLING, 09/03/07) Tetracyclines (Verified Allergy, Unknown, 08/10/16) acetaminophen (Unverified Allergy, Unknown, 07/11/14) RE-ENTERED UNCODED ALLERGY CODED hydrocodone (Unverified Allergy, Unknown, 07/11/14) RE-ENTERED UNCODED ALLERGY CODED morphine (Verified Allergy, Unknown, 08/10/16) oxycodone (Unverified Allergy, Unknown, 07/11/14) RE-ENTERED UNCODED ALLERGY CODED zolpidem (Verified Allergy, Unknown, SWELLING, 09/03/07) PMhx/Soc History of Surgery: Yes (RIGHT HIP ARTHROPLASTY;TRACHEOSTOMY;PEG;TUBAL LIGATION;) Anesthesia Reaction: No Hx Neurological Disorder: Yes (NEUROPATHY;ANXIETY;DEPRESSION;) Hx Respiratory Disorders: Yes (COPD;PNA;) Hx Cardiac Disorders: Yes (CHF;HTN;AFIB;PVD;MODERATE MITRAL/AORTIC REGURGITATION;) Hx Psychiatric Problems: No Hx Miscellaneous Medical Probl: No Hx Alcohol Use: No Hx Substance Use: No Hx Tobacco Use: Yes Smoking Status: Former smoker Physical Exam Physical Exam Constitutional:Well-developed. Well-nourished. HEENT:Normocephalic. Atraumatic.Pupils were equal round reactive to light. Moist mucous membranes.No tonsillar exudates. Neck: No nuchal rigidity. No lymphadenopathy. No posterior cervical spine tenderness or step-offs. Respiratory: Tachypneic. Not using accessory muscles of respiration.Lungs were clear to auscultation bilaterally. No rhonchi. No rales. Wheezing bilaterally Cardiovascular: Regular rate regular rhythm.No murmurs. No rubs were appreciated.S1, S2 normal. Distal pulses are palpable 2+ bilaterally. GI: Abdomen was soft. Nontender. Non Distended. No pulsatile abdominal masses or bruits. No rebound. No guarding. Bowel sounds were present and normal. Muscle skeletal: Full range of motion of both the upper and lower extremities bilaterally.Normal muscle tone.No assymetrical calf tenderness or swelling. Skin: No petechia, no purpura. No lesions on the palms or the soles of the feet. No maculopapular rash. NEURO: Patient was alert, awake, orientated x3.No facial droop. Gait not observed as patient was in mild respiratory distress.Speech had regular rate and rhythm. No focal neurological deficits. Result Diagram: 08/15/18 0432 08/15/18 0432 Results 24 hrs Laboratory Tests Test 07/28/18 13:38 07/28/18 13:45 07/28/18 13:50 07/28/18 13:54 Blood Gas Blood arterial Specimen Source Arterial Blood 07/28/2018 2:30: Date Drawn 41 PM Arterial Blood 7.376 pH (Temp corrected ) Arterial Blood 40.3 mmhg pCO2 (Temp correct) Arterial Blood 82.1 mmHG pO2 (Temp corrected ) Arterial Blood 23.1 mmol/L HCO3 Arterial Blood -1.9 mmol/L Base Excess Arterial Blood 95.7 mmHG Oxygen Saturati on Vick Test N/A Arterial Blood Right Brachial Gas Puncture Site Arterial 0.9 % Blood Carboxyhe moglobin Arterial Blood 0.5 % Methemoglobin Blood Gas A-a 192.9 mmHg O2 Differential Oxyhemoglobin 94.4 % Percent Blood Gas 37.0 C Temperature Blood Gas 16.0 Respiration Rate Blood Gas 16 Actual Respiration Rat e Blood Gas MASK - BIPAP Modality FiO2 45.0 % Blood Gas 10 Pressure Support Blood Gas 15/5 IPAP/EPAP Ratio Blood Gas TM Notified Whom Blood Gas 07/28/2018 2:50: Notified Time 22 PM POC Venous 1.3 mmol/L Lactate White Blood 9.3 10^3/ul Count Red Blood Count 2.11 10^6/ul Hemoglobin 7.0 g/dl Hematocrit 22.9 % Mean 108.5 fl Corpuscular Volume Mean 33.2 pg Corpuscular Hemoglobin Mean 30.6 g/dl Corpuscular Hemoglobin Conc ent Red Cell 17.6 % Distribution Width Platelet Count 312 10^3/UL Mean Platelet 10.2 fl Volume Immature 0.500 % Granulocytes % Neutrophils % 93.9 % Lymphocytes % 3.2 % Monocytes % 2.2 % Eosinophils % 0.0 % Basophils % 0.2 % Nucleated Red 0.0 /100WBC Blood Cells % Immature 0.050 10^3/ul Granulocytes # Neutrophils # 8.7 10^3/ul Lymphocytes # 0.3 10^3/ul Monocytes # 0.2 10^3/ul Eosinophils # 0.0 10^3/ul Basophils # 0.0 10^3/ul Nucleated Red 0.0 10^3/ul Blood Cells # Prothrombin 21.9 Sec Time Prothrombin 1.7 Time Ratio INR 1.90 International Normalized Rati o Activated 70.9 Sec Partial Thrombo plast Time D-Dimer 3570.16 ng/ml D-Dimer Comment Sodium Level 138 mmol/L Potassium Level 4.1 mmol/L Chloride Level 105 mmol/L Carbon Dioxide 25 mmol/L Level Anion Gap 8 Blood Urea 26 mg/dl Nitrogen Creatinine 1.19 mg/dl Est Glomerular mL/min Filtrat Rate mL/min Glucose Level 142 mg/dl Calcium Level 8.4 mg/dl Total Bilirubin 0.1 mg/dl Direct 0.00 mg/dl Bilirubin Indirect 0.1 mg/dl Bilirubin Aspartate Amino 25 IU/L Transf (AST/SGO T) Alanine 25 IU/L Aminotransferas e (ALT/SGPT) Alkaline 87 IU/L Phosphatase Troponin I 0.025 ng/ml Total Protein 6.3 g/dl Albumin 3.1 g/dl Globulin 3.20 g/dl Albumin/Globuli 0.96 n Ratio Amylase Level 94 U/L Lipase 54 U/L Iron Level 11 ug/dl Total Iron 222 ug/dl Binding Capacity Percent Iron 5 % SAT Saturation Transferrin 151 mg/dL B-Type 8080 PG/ML Natriuretic Peptide Test 07/28/18 15:15 07/28/18 17:05 Ferritin 134.0 ng/ml Lactate 630 IU/L Dehydrogenase Urine Color STRAW Urine Clarity CLEAR Urine pH 5.0 Urine Specific 1.004 [place] Urine Ketones NEGATIVE mg/dL Urine Nitrite NEGATIVE mg/dL Urine Bilirubin NEGATIVE mg/dL Urine NEGATIVE mg/dL Urobilinogen Urine Leukocyte NEGATIVE Emery/ul Esterase Urine NEGATIVE mg/dL Hemoglobin Urine Glucose NEGATIVE mg/dL Urine Total NEGATIVE mg/dl Protein Current Medications Medications Dose Sig/[place] Start Time Status Last (Trade) Ordered Route PRN Stop Time Admin Dose Reason Admin Sodium 2,270 ml BOLUS OVER 2 07/28/18 DC 07/28/18 Chloride HOURS STAT 13:38 14:06 (NS) IV* 07/28/18 13:42 Vancomycin 250 ml @ ONCE STAT 07/28/18 DC 07/28/18 HCl 125 mls/hr IVPB 13:38 15:17 07/28/18 15:37 150 ml @ ONCE STAT 07/28/18 DC 07/28/18 Levofloxacin/ 100 mls/hr IVPB 13:38 14:06 Dextrose 07/28/18 15:07 Albuterol 10 mg ONCE STAT 07/28/18 DC 07/28/18 (Proventil INH 13:38 14:13 0.5% (Neb)) 07/28/18 13:42 Ipratropium 1 mg ONCE STAT 07/28/18 DC 07/28/18 [place] INH 13:38 14:13 (Atrovent 07/28/18 13:42 0.02% (Neb)) 125 mg ONCE STAT 07/28/18 DC 07/28/18 Methylprednis IV 13:38 14:06 olone Sodium 07/28/18 13:42 Succinate (Solu-Medrol) IV Flush 10 ml STK-MED 07/28/18 DC (NS 10 ml) ONCE .ROUTE 15:15 07/28/18 15:16 Sodium 100 ml @ ud STK-MED 07/28/18 DC Chloride ONCE .ROUTE 15:15 07/28/18 15:16 Iodixanol 100 ml STK-MED 07/28/18 DC (Visipaque ONCE .ROUTE 15:15 Locm) 07/28/18 15:16 Vancomycin VANCOMYCIN PER 07/28/18 HCl (Vanco PER PHARMACY PROTOCOL XX 17:30 Iv Per Pharmacy) Albuterol/ 3 ml Q2H RESP 07/28/18 DC Ipratropium THERAPY PRN 17:30 (Duoneb) HHN WHEEZING 08/02/18 10:42 AND SOB Procedures/MDM The patient presented to the emergency department with dyspnea. My differential diagnosis included but was not limited to upper airway obstruction, CHF, pulmonary embolism, cardiac ischemia, pneumonia, pneumothorax, anemia, drug overdose, pulmonary edema, COPD or asthma. The patient immediately was placed on a monitoring analyst continuous pulse oximetry and IV access was established by nursing staff. I obtained a chest radiograph that showed bilateral patchy infiltrates. Due to the severity of her symptoms a CT of her chest was performed and indicated the f ollowin. Moderate pulmonary fibrosis, worse at the bilateral lung apices. Associated mediastinal adenopathy. Underlying mass not entirely excluded. Further evaluation with PET-CT may be obtained. 2. Small right multiloculated pleural effusion. Moderate left layering pleural effusion. 3. Streaky bibasilar opacities compatible with atelectasis or pneumonia. 4. Dilated pulmonary trunk and bilateral pulmonary arteries compatible with sequelae of pulmonary hypertension. 5. Left renal 4 cm hyperdense cyst or mass. Further evaluation with multiphase contrast enhanced CT or MR may be obtained. Blood cultures and urine cultures were obtained. This could be result of a hospital-acquired pneumonia and therefore the patient was given IV vancomycin and Zosyn. However during the patient's treatment in the emergency department her respiratory distress continued to worsen. She had already received nebulizer treatments but was now tachypneic using accessory muscles of respiration unable to speak more than 2 words at a time. At this time the patient was placed on noninvasive mechanical ventilation with improvement of her respiratory distress on the BiPAP. The patient will be admitted to her primary care physician Dr. Pack in serious condition. She will go to the telemetry service. 12 Lead EKG tracing ordered and reviewed by myself showed: Normal sinus rhythm of 87 bpm and no arrhythmia. CA interval normal. QRS duration normal. No ST segment elevation No ST segment depression. No changes consistent with acute ischemia. Critical Care: Time: 65 minutes Treatments/Evaluations: Close monitoring and treatment of unstable vital signs, cardiorespiratory, and neurologic status, while maintaining tight balance of fluid, respiratory, and cardiac interventions. Time does not include performing any of the above billable procedures. Departure Diagnosis: Primary Impression: Respiratory distress Additional Impression: Pneumonia Pneumonia type: due to unspecified organism Laterality: unspecified laterality Lung location: unspecified part of lung Qualified Codes: J18.9 - Pneumonia, unspecified organism Condition: Serious LUIS NASSAR MD Aug 15, 2018 22:53
[2018-08-16] VITALS (31 sets, daily range): BP systolic 90–157; BP diastolic 35–62; PULSE 66–123; RESP 5–33
[2018-08-16] MEDS: LANSOPRAZOLE 30 MG CAP GTB SCH (05:32)
[2018-08-16] MEDS: FUROSEMIDE 20 MG INJ IV SCH (05:32)
--- NOTE | 2018-08-16 07:10 | PN ---
Date/Time of Note Date/Time of Note DATE: 08/16/18 TIME: 07:09 Assessment/Plan VTE Prophylaxis Risk score (from Ns)>0 risk: 10 SCD applied (from Ns): Yes Pharmacological prophylaxis: other Lines/Catheters IV Catheter Type (from [facility]): PICC Line Central line still needed: Yes Urinary Cath still in place: Yes Reason Cath still needed: urinary retention Assessment/Plan Hospital Course SUBJECTIVE: The patient remains critically ill on full ventilatory support. The patient has had minimal response. No other acute events noted. No hemop tysis, hematemesis, fever, vomiting, seizure like activities or hematochezia. vent settings, imaging studies and cardiac strips were reviewed d/w Dr Salazar OBJECTIVE: HEENT: Head is normocephalic. NECK: Supple. HEART: Regular rate. LUNGS: Show diminished breath sounds at base. ABDOMEN: Soft, nontender to palpation without rebound or guarding. EXTREMITIES: Negative for clubbing, cyanosis. Positive edema. DERMATOLOGIC: No rashes. MUSCULOSKELETAL: No joint effusions. NEUROLOGIC: No change in exam. MEDICATIONS: Reviewed. ASSESSMENT AND PLAN: 1. Nonoliguric acute kidney injury with unknown baseline creatinine. Etiology is secondary to acute tubular necrosis due to sepsis, hemodynamics. The patient appears to be entering maintenance phase of acute tubular necrosis as creatinine has stabilized. The patient does have significant azotemia, which is multifactorial secondary to acute kidney injury, hypercatabolic state, steroids, diuretic therapy. At this point, we will increase diuretic therapy with close monitoring of her renal function. Continue to renally dose all medicines, avoid nephrotoxins. No immediate need for renal replacement therapy at this time. 2. Hyperkalemia, resolved. Continue to monitor. 3. Anemia. Monitor hemoglobin and hematocrit levels. 4. Mineral bone disorder, monitor calcium and phosphorus levels. 5. Hypernatremia, improved. Continue free water flushes. 6. Volume overload secondary to sepsis, capillary leak, diastolic heart failu re. The patient is responding well to diuretic therapy. We will increase Lasix to 20 mg IV b.i.d., monitor electrolytes and renal function closely. 7. Sepsis, status post shock. Continue current antibiotic regimen. 8. Acute cerebrovascular accident. The patient has been evaluated by neurology. Continue medical management. 9. Acute encephalopathy, etiology is secondary to cerebrovascular, toxic metabolic. Continue to monitor. 10. Ventilator-dependent respiratory failure. Vent settings and ABG was reviewed. Continue to monitor. 11. Dysphagia. Continue tube feeding. 12. History of peripheral vascular disease. 13. Status post hip arthroplasty. Result Diagram: 08/16/1844608/16/18446 Results 24hrs Laboratory Tests Test 08/16/18 04:47 08/16/18 05:00 White Blood Count 16.9 H Red Blood Count 2.69 L Hemoglobin 8.5 L Hematocrit 26.9 L Mean Corpuscular Volume 100.0 Mean Corpuscular Hemoglobin 31.6 Mean Corpuscular Hemoglobin Concent 31.6 L Red Cell Distribution Width 19.3 H Platelet Count 106 L Mean Platelet Volume 11.7 H Immature Granulocytes % 0.800 H Neutrophils % 88.3 H Lymphocytes % 6.5 L Monocytes % 4.0 Eosinophils % 0.3 Basophils % 0.1 Nucleated Red Blood Cells % 0.0 Immature Granulocytes # 0.140 H Neutrophils # 14.9 H Lymphocytes # 1.1 Monocytes # 0.7 Eosinophils # 0.1 Basophils # 0.0 Nucleated Red Blood Cells # 0.0 Sodium Level 142 Potassium Level 4.1 Chloride Level 106 Carbon Dioxide Level 34 H Anion Gap 2 L Blood Urea Nitrogen 98 H Creatinine 1.29 H Est Glomerular Filtrat Rate mL/min Glucose Level 113 Lactic Acid Level 1.7 Calcium Level 8.1 L Blood Gas Specimen Source Blood arterial Arterial Blood Date Drawn 08/16/2018 4:30:24 AM Arterial Blood pH (Temp corrected) 7.430 Arterial Blood pCO2 (Temp correct) 46.1 H Arterial Blood pO2 (Temp corrected) 60.9 L Arterial Blood HCO3 29.9 H Arterial Blood Base Excess 5.0 H Arterial Blood Oxygen Saturation 89.5 L Vick Test ACCEPTAB Arterial Blood Gas Puncture Site Left Radial Arterial Blood Carboxyhemoglobin 0.4 Arterial Blood Methemoglobin 0.3 Blood Gas A-a O2 Differential 98.8 H Oxyhemoglobin Percent 88.9 L Blood Gas Temperature 37.0 Blood Gas Respiration Rate 18.0 Blood Gas Actual Respiration Rate 24 Blood Gas Modality VENT - AC FiO2 30.0 Blood Gas Tidal Volume 400.0 Blood Gas Low PEEP Setting 5.0 Blood Gas Notified Whom MA Blood Gas Notified Time 08/16/2018 4:52:23 AM Exam/Review of Systems Exam Vitals Vital Signs Date Temp Pulse Resp B/P (MAP) Pulse Ox O2 O2 Flow FiO2 Time Delivery Rate 08/16/18 85 16 137/36 96 Mechanical 06:00 (69) Ventilator 08/16/18 30 05:25 08/16/18 99.0 04:00 Intake and Output 08/15/18 08/15/18 08/16/18 1515:00 23:00 07:00 IntakeIntake Total 444.75 ml 427 ml 496 ml OutputOutput Total 1035 ml 740 ml 620 ml BalanceBalance -590.25 ml -313 ml -124 ml Results Results 24hrs Laboratory Tests Test 08/16/18 04:47 08/16/18 05:00 White Blood Count 16.9 H Red Blood Count 2.69 L Hemoglobin 8.5 L Hematocrit 26.9 L Mean Corpuscular Volume 100.0 Mean Corpuscular Hemoglobin 31.6 Mean Corpuscular Hemoglobin Concent 31.6 L Red Cell Distribution Width 19.3 H Platelet Count 106 L Mean Platelet Volume 11.7 H Immature Granulocytes % 0.800 H Neutrophils % 88.3 H Lymphocytes % 6.5 L Monocytes % 4.0 Eosinophils % 0.3 Basophils % 0.1 Nucleated Red Blood Cells % 0.0 Immature Granulocytes # 0.140 H Neutrophils # 14.9 H Lymphocytes # 1.1 Monocytes # 0.7 Eosinophils # 0.1 Basophils # 0.0 Nucleated Red Blood Cells # 0.0 Sodium Level 142 Potassium Level 4.1 Chloride Level 106 Carbon Dioxide Level 34 H Anion Gap 2 L Blood Urea Nitrogen 98 H Creatinine 1.29 H Est Glomerular Filtrat Rate mL/min Glucose Level 113 Lactic Acid Level 1.7 Calcium Level 8.1 L Blood Gas Specimen Source Blood arterial Arterial Blood Date Drawn 08/16/2018 4:30:24 AM Arterial Blood pH (Temp corrected) 7.430 Arterial Blood pCO2 (Temp correct) 46.1 H Arterial Blood pO2 (Temp corrected) 60.9 L Arterial Blood HCO3 29.9 H Arterial Blood Base Excess 5.0 H Arterial Blood Oxygen Saturation 89.5 L Vick Test ACCEPTAB Arterial Blood Gas Puncture Site Left Radial Arterial Blood Carboxyhemoglobin 0.4 Arterial Blood Methemoglobin 0.3 Blood Gas A-a O2 Differential 98.8 H Oxyhemoglobin Percent 88.9 L Blood Gas Temperature 37.0 Blood Gas Respiration Rate 18.0 Blood Gas Actual Respiration Rate 24 Blood Gas Modality VENT - AC FiO2 30.0 Blood Gas Tidal Volume 400.0 Blood Gas Low PEEP Setting 5.0 Blood Gas Notified Whom MA Blood Gas Notified Time 08/16/2018 4:52:23 AM Medications Medication Current Medications Vancomycin HCl (Vanco Iv Per Pharmacy) VANCOMYCIN PER PHARMACY PER PROTOCOL XX ; Start 07/28/18 at 17:30 Albuterol/ Ipratropium (Duoneb) 3 ml Q6H RESP THERAPY HHN Last administered on 08/02/18at 01:07; Admin Dose 3 ML; Start 07/28/18 at 20:00; Status Hold Calcium/Vitamin D (Oyster Shell/ Vit-D (500/200)) 1 tab BID PO Last administered on 08/15/18 21:08; Admin Dose 1 TAB; Start 07/28/18 at 21:00 Clonazepam (Klonopin) 0.5 mg BID PRN PO ANXIETY Last administered on 08/04/18 21:00; Admin Dose 0.5 MG; Start 07/28/18 at 21:00 Clonidine (Catapres) 0.1 mg TID PRN PO ELEVATED BLOOD PRESSURE Last administered on 08/13/18 14:58; Admin Dose 0.1 MG; Start 07/28/18 at 21:00 Hydromorphone HCl (Dilaudid) 2 mg Q4H PRN PO SEVERE PAIN LEVEL 7-10 Last administered on 08/01/18at 23:34; Admin Dose 2 MG; Start 07/28/18 at 21:00 Docusate Sodium (Colace) 100 mg BID PRN PO CONSTIPATION; Start 07/28/18 at 21:00 Gabapentin (Neurontin) 200 mg BID PO Last administered on 08/15/18 21:08; Admin Dose 200 MG; Start 07/28/18 at 21:00 Magnesium Hydroxide (Milk Of Mag) 30 ml DAILY PRN PO CONSTIPATION; Start 07/28/18 at 21:00 Acetaminophen/ Hydrocodone Bitart ([place] (10/325)) 1 tab Q4H PRN PO MODERATE PAIN LEVEL 4-6 Last administered on 08/01/18 21:02; Admin Dose 1 TAB; Start 07/28/18 at 21:00 Carisoprodol (Soma) 350 mg BID PRN PO MUSCLE SPASMS; Start 07/28/18 at 21:00 Trazodone HCl (Desyrel) 50 mg HS PRN PO INSOMNIA Last administered on 07/29/18 20:29; Admin Dose 50 MG; Start 07/28/18 at 21:00 Ondansetron HCl (Zofran Inj) 4 mg Q6H PRN IV NAUSEA AND/OR VOMITING; Start 07/28/18 at 21:00 Methylprednisolone Sodium Succinate (Solu-Medrol) 40 mg DAILY IV Last administered on 08/15/18 09:34; Admin Dose 40 MG; Start 07/29/18 at 09:00 Ascorbic Acid (Vitamin C) 500 mg TID PO Last administered on 08/15/18 21:08; Admin Dose 500 MG; Start 07/29/18 at 09:00 Lorazepam (Ativan) 0.5 mg Q6H PRN PO ANXIETY Last administered on 08/10/18 21:28; Admin Dose 0.5 MG; Start 07/29/18 at 20:30 Guaifenesin/ Dextromethorphan (Robitussin Dm Liquid Cup) 5 ml Q4H PRN PO COUGH Last administered on 08/01/18 16:32; Admin Dose 5 ML; Start 07/29/18 at 20:30 Diltiazem HCl 125 ml @ 5 mls/hr TITRATE IV Last administered on 07/30/18 09:40; Admin Dose 5 MLS/HR; Start 07/30/18 at 09:00; Status Hold Dronedarone (Multaq) 400 mg BID WITH MEALS PO Last administered on 08/15/18 1 7:41; Admin Dose 400 MG; Start 07/30/18 at 09:30 Propofol 100 ml @ 1.986 mls/ hr Q12H IV Last administered on 08/05/18 06:36; Admin Dose 11.916 MLS/HR; Start 08/02/18 at 10:00 Acetaminophen (Tylenol Liquid) 650 mg Q6H PRN GTB MILD PAIN (1-3) OR TEMPERATURE Last administered on 08/12/18 08:13; Admin Dose 650 MG; Start 08/03/18 at 09:30 Docusate Sodium (Colace Liquid Cup) 100 mg BID PRN GTB CONSTIPATION,,,,; Start 08/03/18 at 09:30 IV Flush (NS 10 ml) 10 ml PRN PRN IV IV PROTOCOL; Start 08/03/18 at 10:30 Fentanyl 100 ml @ 2.5 mls/hr TITRATE IV Last administered on 08/15/18 22:39; Admin Dose 5 MLS/HR; Start 08/04/18 at 09:00 Lansoprazole (Prevacid) 30 mg DAILY@06 GTB Last administered on 08/16/18 05:32; Admin Dose 30 MG; Start 08/05/18 at 06:00 Midazolam HCl 50 ml @ 1 mls/hr TITRATE IV Last administered on 08/15/18 18:49; Admin Dose 3 MLS/HR; Start 08/05/18 at 12:00 Norepinephrine 250 ml @ 1.875 mls/ hr TITRATE IV Last administered on 08/05/18 13:00; Admin Dose 30 MLS/HR; Start 08/05/18 at 13:00 Phenylephrine HCl 80 mg/Dextrose 250 ml @ 18.75 mls/ hr TITRATE IV Last admi nistered on 08/09/18 01:42; Admin Dose 6.56 MLS/HR; Start 08/06/18 at 15:30 Vancomycin/Sodium Chloride 250 ml @ 125 mls/hr Q72H IVPB Last administered on 08/14/18 11:26; Admin Dose 125 MLS/HR; Start 08/11/18 at 11:00 Meropenem/Sodium Chloride 50 ml @ 100 mls/hr Q12 IVPB Last administered on 08/15/18 21:08; Admin Dose 100 MLS/HR; Start 08/12/18 at 21:00 Furosemide (Lasix) 20 mg BID DIURETICS IV Last administered on 08/16/18 05:32; Admin Dose 20 MG; Start 08/14/18 at 08:00 BRIAN HAGAN DO Aug 16, 2018 07:10
[2018-08-16] MEDS: ASCORBIC ACID 500 MG TAB PO SCH (08:11)
[2018-08-16] MEDS: DRONEDARONE HYDROCHLORIDE 400 MG TAB PO SCH (08:11)
[2018-08-16] MEDS: METHYLPREDNISOLONE 40 MG INJ IV SCH (08:11)
[2018-08-16] MEDS: MEROPENEM 500MG/50 ML (PMX) 50 ML IVPB SCH (08:11)
[2018-08-16] MEDS: BALSAM PERU/CASTOR OIL 60 GM TUBE TOP SCH (08:12)
[2018-08-16] MEDS: PROPOFOL 100 ML IV SCH (08:12)
[2018-08-16] MEDS: CALCIUM/VITAMIN D (500/200) TAB PO SCH (08:12)
[2018-08-16] MEDS: GABAPENTIN 100 MG CAP PO SCH (08:12)
--- NOTE | 2018-08-16 11:11 | CONS ---
Consult Date/Type/Reason Admit Date/Time Jul 28, 2018 at 18:16 Initial Consult Date 07/28/18 Type of Consultation: Pulm/CCM Requesting Provider: ABDIAS STAPLES MD Date/Time of Note DATE: 08/16/18 TIME: 11:09 Subjective Minimally responsive on the vent. Objective Vitals Vital Signs Date Temp Pulse Resp B/P (MAP) Pulse Ox O2 O2 Flow FiO2 Time Delivery Rate 08/16/18 78 08:00 08/16/18 30 08:00 08/16/18 16 137/36 96 Mechanical 06:00 (69) Ventilator 08/16/18 99.0 04:00 Intake and Output 08/15/18 08/15/18 08/16/18 1414:59 22:59 06:59 IntakeIntake Total 423.75 ml 428 ml 524 ml OutputOutput Total 935 ml 790 ml 670 ml BalanceBalance -511.25 ml -362 ml -146 ml Exam HEENT: Neck supple; no JVD; no LAD; + ET tube CVS: Irreg irreg, S1 and S2 CHEST: Coarse rhonchi L > R ABD: Soft, NT, + BS EXT: No c/c/e NEURO: Sedated on [facility] vent. Results/Medications Result Diagram: 08/16/1844608/16/18446 Results 24 hrs Laboratory Tests Test 08/16/18 04:47 08/16/18 05:00 White Blood Count 16.9 H Red Blood Count 2.69 L Hemoglobin 8.5 L Hematocrit 26.9 L Mean Corpuscular Volume 100.0 Mean Corpuscular Hemoglobin 31.6 Mean Corpuscular Hemoglobin Concent 31.6 L Red Cell Distribution Width 19.3 H Platelet Count 106 L Mean Platelet Volume 11.7 H Immature Granulocytes % 0.800 H Neutrophils % 88.3 H Lymphocytes % 6.5 L Monocytes % 4.0 Eosinophils % 0.3 Basophils % 0.1 Nucleated Red Blood Cells % 0.0 Immature Granulocytes # 0.140 H Neutrophils # 14.9 H Lymphocytes # 1.1 Monocytes # 0.7 Eosinophils # 0.1 Basophils # 0.0 Nucleated Red Blood Cells # 0.0 Sodium Level 142 Potassium Level 4.1 Chloride Level 106 Carbon Dioxide Level 34 H Anion Gap 2 L Blood Urea Nitrogen 98 H Creatinine 1.29 H Est Glomerular Filtrat Rate mL/min Glucose Level 113 Lactic Acid Level 1.7 Calcium Level 8.1 L Blood Gas Specimen Source Blood arterial Arterial Blood Date Drawn 08/16/2018 4:30:24 AM Arterial Blood pH (Temp corrected) 7.430 Arterial Blood pCO2 (Temp correct) 46.1 H Arterial Blood pO2 (Temp corrected) 60.9 L Arterial Blood HCO3 29.9 H Arterial Blood Base Excess 5.0 H Arterial Blood Oxygen Saturation 89.5 L Vick Test ACCEPTAB Arterial Blood Gas Puncture Site Left Radial Arterial Blood Carboxyhemoglobin 0.4 Arterial Blood Methemoglobin 0.3 Blood Gas A-a O2 Differential 98.8 H Oxyhemoglobin Percent 88.9 L Blood Gas Temperature 37.0 Blood Gas Respiration Rate 18.0 Blood Gas Actual Respiration Rate 24 Blood Gas Modality VENT - AC FiO2 30.0 Blood Gas Tidal Volume 400.0 Blood Gas Low PEEP Setting 5.0 Blood Gas Notified Whom MA Blood Gas Notified Time 08/16/2018 4:52:23 AM Home Meds Reported Medications Ondansetron Hcl* (Zofran*) 8 Mg Tablet, 8 MG PO Q6H PRN for NAUSEA AND OR VOMITING, TAB 07/28/18 Guaifenesin (Xpect) 400 Mg Tablet, 400 MG PO Q12, TAB 07/28/18 Acetaminophen* (Acetaminophen*) 650 Mg Tablet, 650 MG PO Q6H PRN for PAIN AND OR ELEVATED TEMP, #30 TAB 07/28/18 Trazodone Hcl* (Trazodone Hcl*) 50 Mg Tablet, 50 MG PO QHS, #30 TAB 07/28/18 Carisoprodol* (Carisoprodol*) 350 Mg Tablet, 350 MG PO BID PRN for MUSCLE SPASMS, TAB 07/28/18 Montelukast Sodium* (Singulair*) 10 Mg Tablet, 10 MG PO QHS, #30 TAB 07/28/18 Sennosides* (Senna Lax*) 8.6 Mg Tablet, 2 TAB PO QHS, TAB 07/28/18 Fluoxetine Hcl* (Prozac*) 20 Mg Capsule, 20 MG PO DAILY, CAP 07/28/18 Promethazine Hcl* (Phenergan* Liq) 6.25 Mg/5 Ml Syrup, 12.5 MG PO Q6H PRN for COUGH, ML 07/28/18 Lansoprazole* (Lansoprazole*) 30 Mg Capsule.dr, 30 MG PO DAILY, CAP 07/28/18 Vit C/E/Zn/Coppr/Lutein/Zeaxan (Preservision Areds 2 Softgel) 1 Each Capsule, 2 EACH PO DAILY, CAP 07/28/18 Prednisone* (Prednisone*) 20 Mg Tab, 40 MG PO DAILY, TAB 07/28/18 Chlorhexidine Gluconate (Peridex) 473 Ml Mouthwash, 15 ML MM BID, BOTTLE 07/28/18 [place]-3 Acid Ethyl Esters (Lovaza) 1 Gm Capsule, 2 GM PO DAILY, CAP 07/28/18 Hydrocodone/Acetaminophen ([place] 10-325 Tablet) 1 Each Tablet, 1 EACH PO Q4 PRN for SEVERE PAIN LEVEL 7-10, TAB 07/28/18 Multivitamins* (Theragran*) 1 Tab Tab, 1 TAB PO DAILY, TAB 07/28/18 Guaifenesin (Guaifenesin) 600 Mg Tablet.sa, 600 MG PO BID, TAB 07/28/18 Magnesium Hydroxide* (Milk Of Magnesia*) 400 Mg/5 Ml Oral.susp, 30 ML PO DAILY PRN for CHEST PAIN, ML 07/28/18 Metoprolol Tartrate* (Lopressor*) 50 Mg Tab, 50 MG PO DAILY, #60 TAB HOLD FOR SBP<110 OR HR<60 07/28/18 Atorvastatin Calcium (Atorvastatin Calcium) 10 Mg Tablet, 10 MG PO QHS, #30 TAB 07/28/18 Lidocaine (Lidocaine) 5 Gm Cream..g., 5 GM TP DAILY 07/28/18 Furosemide* (Lasix*) 20 Mg Tablet, 20 MG PO DAILY, TAB 07/28/18 Lactobacillus Rhamnosus* (Culturelle*) 1 Each Cap.sprink, 1 CAP PO DAILY, CAP 07/28/18 Ipratropium-Albuterol (Ipratropium-Albuterol) 0.5-3 Mg/3 Ml Ampul.neb, 3 ML INHALATION Q4 PRN for SHORTNESS OF BREATH, #30 VIAL 07/28/18 Gabapentin* (Gabapentin*) 100 Mg Capsule, 200 MG PO BID, #180 CAP 07/28/18 Folic Acid* (Folic Acid*) 1 Mg Tablet, 1 MG PO DAILY, TAB 07/28/18 Ferrous Sulfate* (Ferrous Sulfate*) 325 Mg Tabec, 325 MG PO TID, TAB 07/28/18 Estrogens Conjugated* (Premarin*) 0.45 Mg Tablet, 0.45 MG PO DAILY, TAB 07/28/18 Bisacodyl (Dulcolax) 10 Mg Supp.rect, 10 MG RC Q48, SUPP.RECT 07/28/18 Docusate Sodium* (Colace*) 100 Mg Capsule, 100 MG PO QHS PRN for CONSTIPATION, #60 CAP 07/28/18 Hydromorphone Hcl* (Dilaudid*) 2 Mg Tablet, 2 MG PO Q6H PRN for SEVERE PAIN LEVEL 7-10, TAB 07/28/18 Cyanocobalamin* (Vitamin B12*) 500 Mcg Tab, 500 MCG PO DAILY, TAB 07/28/18 Clonidine Hcl* (Clonidine Hcl*) 0.1 Mg Tab, 0.1 MG PO Q8, TAB 07/28/18 Clonazepam* (Clonazepam*) 0.5 Mg Tablet, 0.5 MG PO BID PRN for ANXIETY, TAB 07/28/18 Calcium Carbonate/Vitamin D3 ([place] 500+D Tablet) 1 Each Tablet, 1 EACH PO BID, TAB 07/28/18 Fluticasone/Vilanterol (Breo Ellipta 200-25 Mcg INH) 1 Each Blst.w.dev, 1 PUFF INHALATION DAILY, #1 INHALER 07/28/18 Lorazepam* (Lorazepam*) 0.5 Mg Tablet, 0.5 MG PO Q6 PRN for ANXIETY, TAB 07/28/18 Diphenhydramine Hcl* (Benadryl*) 25 Mg Cap, 25 MG PO Q8 PRN for PRN, CAP 07/28/18 Aspirin* (Aspirin* Chew) 81 Mg Tab.chew, 81 MG PO DAILY, TAB.CHEW 07/28/18 Ascorbic Acid* (Vitamin C*) 500 Mg Capsule.sa, 500 MG PO TID, CAP 07/28/18 Apixaban* (Eliquis*) 5 Mg Tablet, 5 MG PO BID, TAB 07/28/18 Hydrocortisone Acetate (Anusol-Hc) 25 Mg Supp.rect, 25 MG [place] BID PRN for CONSTIPATION, SUPP.RECT 07/28/18 Amiodarone Hcl* (Amiodarone Hcl*) 200 Mg Tablet, 200 MG PO BID, #30 TAB HOLD FOR SBP<110 OR HR<60 07/28/18 Medications Current Medications Vancomycin HCl (Vanco Iv Per Pharmacy) VANCOMYCIN PER PHARMACY PER PROTOCOL XX ; Start 07/28/18 at 17:30 Albuterol/ Ipratropium (Duoneb) 3 ml Q6H RESP THERAPY HHN Last administered on 08/02/18 01:07; Admin Dose 3 ML; Start 07/28/18 at 20:00; Status Hold Calcium/Vitamin D ([place]/ Vit-D (500/200)) 1 tab BID PO Last administered on 08/16/18 08:12; Admin Dose 1 TAB; Start 07/28/18 at 21:00 Clonazepam (Klonopin) 0.5 mg BID PRN PO ANXIETY Last administered on 08/04/18 21:00; Admin Dose 0.5 MG; Start 07/28/18 at 21:00 Clonidine (Catapres) 0.1 mg TID PRN PO ELEVATED BLOOD PRESSURE Last administered on 08/13/18 14:58; Admin Dose 0.1 MG; Start 07/28/18 at 21:00 Hydromorphone HCl (Dilaudid) 2 mg Q4H PRN PO SEVERE PAIN LEVEL 7-10 Last administered on 08/01/18 23:34; Admin Dose 2 MG; Start 07/28/18 at 21:00 Docusate Sodium (Colace) 100 mg BID PRN PO CONSTIPATION; Start 07/28/18 at 21:00 Gabapentin (Neurontin) 200 mg BID PO Last administered on 08/16/18 08:12; Admin Dose 200 MG; Start 07/28/18 at 21:00 Magnesium Hydroxide (Milk Of Mag) 30 ml DAILY PRN PO CONSTIPATION; Start 07/28/18 at 21:00 Acetaminophen/ Hydrocodone Bitart ([place] (10/325)) 1 tab Q4H PRN PO MODERATE PAIN LEVEL 4-6 Last administered on 08/01/18at 21:02; Admin Dose 1 TAB; Start 07/28/18 at 21:00 Carisoprodol (Soma) 350 mg BID PRN PO MUSCLE SPASMS; Start 07/28/18 at 21:00 Trazodone HCl (Desyrel) 50 mg HS PRN PO INSOMNIA Last administered on 07/29/18 20:29; Admin Dose 50 MG; Start 07/28/18 at 21:00 Ondansetron HCl (Zofran Inj) 4 mg Q6H PRN IV NAUSEA AND/OR VOMITING; Start 07/28/18 at 21:00 Methylprednisolone Sodium Succinate (Solu-Medrol) 40 mg DAILY IV Last administered on 08/16/18 08:11; Admin Dose 40 MG; Start 07/29/18 at 09:00 Ascorbic Acid (Vitamin C) 500 mg TID PO Last administered on 08/16/18 08:11; Admin Dose 500 MG; Start 07/29/18 at 09:00 Lorazepam (Ativan) 0.5 mg Q6H PRN PO ANXIETY Last administered on 08/10/18 21:28; Admin Dose 0.5 MG; Start 07/29/18 at 20:30 Guaifenesin/ Dextromethorphan (Robitussin Dm Liquid Cup) 5 ml Q4H PRN PO COUGH Last administered on 08/01/18 16:32; Admin Dose 5 ML; Start 07/29/18 at 20:30 Diltiazem HCl 125 ml @ 5 mls/hr TITRATE IV Last administered on 07/30/18 09 :40; Admin Dose 5 MLS/HR; Start 07/30/18 at 09:00; Status Hold Dronedarone (Multaq) 400 mg BID WITH MEALS PO Last administered on 08/16/18 08:11; Admin Dose 400 MG; Start 07/30/18 at 09:30 Propofol 100 ml @ 1.986 mls/ hr Q12H IV Last administered on 08/05/18 06:36; Admin Dose 11.916 MLS/HR; Start 08/02/18 at 10:00 Acetaminophen (Tylenol Liquid) 650 mg Q6H PRN GTB MILD PAIN (1-3) OR TEMPERA TURE Last administered on 08/12/18 08:13; Admin Dose 650 MG; Start 08/03/18 at 09:30 Docusate Sodium (Colace Liquid Cup) 100 mg BID PRN GTB CONSTIPATION,,,,; Start 08/03/18 at 09:30 IV Flush (NS 10 ml) 10 ml PRN PRN IV IV PROTOCOL; Start 08/03/18 at 10:30 Fentanyl 100 ml @ 2.5 mls/hr TITRATE IV Last administered on 08/15/18 22:39; Admin Dose 5 MLS/HR; Start 08/04/18 at 09:00 Lansoprazole (Prevacid) 30 mg DAILY@06 GTB Last administered on 08/16/18 05:32; Admin Dose 30 MG; Start 08/05/18 at 06:00 Midazolam HCl 50 ml @ 1 mls/hr TITRATE IV Last administered on 08/15/18 18:49; Admin Dose 3 MLS/HR; Start 08/05/18 at 12:00 Norepinephrine 250 ml @ 1.875 mls/ hr TITRATE IV Last administered on 08/05/18 13:00; Admin Dose 30 MLS/HR; Start 08/05/18 at 13:00 Phenylephrine HCl 80 mg/Dextrose 250 ml @ 18.75 mls/ hr TITRATE IV Last administered on 08/09/18 01:42; Admin Dose 6.56 MLS/HR; Start 08/06/18 at 15:30 Vancomycin/Sodium Chloride 250 ml @ 125 mls/hr Q72H IVPB Last administered on 08/14/18 11:26; Admin Dose 125 MLS/HR; Start 08/11/18 at 11:00 Meropenem/Sodium Chloride 50 ml @ 100 mls/hr Q12 IVPB Last administered on 08/16/18 08:11; Admin Dose 100 MLS/HR; Start 08/12/18 at 21:00 Furosemide (Lasix) 40 mg BID DIURETICS IV ; Start 08/16/18 at 18:00 Assessment/Plan Assessment/Plan (Daily) IMP: 1. Acute CVA with encephalopathy 2. Acute on chronic hypoxemic respiratory failure with ongoing bilateral infiltrates 3. Renal insufficiency 4. Severe sepsis likely secondary to pneumonia 5. A. fib with RVR 6. Thrombocytopenia RECS: 1. Continue reduced rate to 18 and Vt to 400; PEEP 5 2. Am ABG/CXR/labs 3. Await family decision regarding transition to comfort measures Critical care 40 minutes CHET RECINOS MD Aug 16, 2018 11:11
--- NOTE | 2018-08-16 11:54 | PN ---
Date/Time of Note Date/Time of Note DATE: 08/16/18 TIME: 11:53 Assessment/Plan VTE Prophylaxis Risk score (from Ns)>0 risk: 12 SCD applied (from Ns): Yes Pharmacological prophylaxis: LMWH Lines/Catheters [facility] Type (from [facility] PICC Line Central line still needed: Yes Urinary Cath still in place: Yes Reason Cath still needed: skin wounds contaminated by urine Assessment/Plan Hospital Course - Supratentorial and infratentorial subacute infarcts, with minimal 1.3 mm [id number]-[id number] midline shift. EEG revealed abnormal EEG due to severe diffuse slowing, no epileptiform discharges were seen. Dr. Barnes is following in neurology consultation. - Acute hypoxemic respiratory failure due to healthcare-acquired pneumonia/ ARDS. Continue ventilatory support, steroids. from pulmonary standpoint. - Anemia of acute blood loss secondary to nosebleed admission, resolved. status post blood transfusion, continue to monitor hemoglobin and hematocrit. - Sepsis with gram-positive bacteremia. Continue antibiotics per ID. Dr. Brown is following in infection disease consultation. - Bilateral pulmonary fibrosis. Continue supplemental oxygen and symptomatic treatment with steroids. - Chronic obstructive pulmonary disease. Continue DuoNeb and steroids. - Nonobstructive coronary artery disease as per cardiac catheterization in 2013. Dr. Frost is following from cardiac standpoint. - Paroxysmal atrial fibrillation. Patient had an episode of atrial fibrillation with rapid ventricular response and was on Cardizem drip, currently in sinus rhythm. - Hypertension. Continue metoprolol and Lasix. p.r.n. clonidine. - Peripheral artery disease, status post stent. - Dyslipidemia. Continue Lipitor. - MARQUES, Dr. Salazar from nephrology standpoint. - Recent right hip fracture, status post surgery. - Pancreatic head mass. As per patient, she has been going to a specialist every year for followup. - Anxiety and depression. - Poor prognosis, patient is chemical code only. Dr. Greenwood is following in palliative services consultation. Result Diagram: 08/16/1844608/16/18446 Results 24hrs Laboratory Tests Test 08/16/18 04:47 08/16/18 05:00 White Blood Count 16.9 H Red Blood Count 2.69 L Hemoglobin 8.5 L Hematocrit 26.9 L Mean Corpuscular Volume 100.0 Mean Corpuscular Hemoglobin 31.6 Mean Corpuscular Hemoglobin Concent 31.6 L Red Cell Distribution Width 19.3 H Platelet Count 106 L Mean Platelet Volume 11.7 H Immature Granulocytes % 0.800 H Neutrophils % 88.3 H Lymphocytes % 6.5 L Monocytes % 4.0 Eosinophils % 0.3 Basophils % 0.1 Nucleated Red Blood Cells % 0.0 Immature Granulocytes # 0.140 H Neutrophils # 14.9 H Lymphocytes # 1.1 Monocytes # 0.7 Eosinophils # 0.1 Basophils # 0.0 Nucleated Red Blood Cells # 0.0 Sodium Level 142 Potassium Level 4.1 Chloride Level 106 Carbon Dioxide Level 34 H Anion Gap 2 L Blood Urea Nitrogen 98 H Creatinine 1.29 H Est Glomerular Filtrat Rate mL/min Glucose Level 113 Lactic Acid Level 1.7 Calcium Level 8.1 L Blood Gas Specimen Source Blood arterial Arterial Blood Date Drawn 08/16/2018 4:30:24 AM Arterial Blood pH (Temp corrected) 7.430 Arterial Blood pCO2 (Temp correct) 46.1 H Arterial Blood pO2 (Temp corrected) 60.9 L Arterial Blood HCO3 29.9 H Arterial Blood Base Excess 5.0 H Arterial Blood Oxygen Saturation 89.5 L Vick Test ACCEPTAB Arterial Blood Gas Puncture Site Left Radial Arterial Blood Carboxyhemoglobin 0.4 Arterial Blood Methemoglobin 0.3 Blood Gas A-a O2 Differential 98.8 H Oxyhemoglobin Percent 88.9 L Blood Gas Temperature 37.0 Blood Gas Respiration Rate 18.0 Blood Gas Actual Respiration Rate 24 Blood Gas Modality VENT - AC FiO2 30.0 Blood Gas Tidal Volume 400.0 Blood Gas Low PEEP Setting 5.0 Blood Gas Notified Whom MA Blood Gas Notified Time 08/16/2018 4:52:23 AM Subjective 24 Hr Interval Summary Free Text/Dictation Patient remain sedated and intubated Exam/Review of Systems Exam Vitals Vital Signs Date Temp Pulse Resp B/P (MAP) Pulse Ox O2 O2 Flow FiO2 Time Delivery Rate 08/16/18 88 16 124/36 92 Mechanical 11:00 (65) Ventilator 08/16/18 98.8 08:00 08/16/18 30 08:00 Intake and Output 08/15/18 08/15/18 08/16/18 1515:00 23:00 07:00 IntakeIntake Total 444.75 ml 427 ml 516 ml OutputOutput Total 1035 ml 740 ml 695 ml BalanceBalance -590.25 ml -313 ml -179 ml Constitutional: well developed Head: normocephalic, atraumatic Neck: supple Respiratory: diminished breath sounds Cardiovascular: regular rate and rhythm Gastrointestinal: soft, non-tender Extremities: normal pulses Results Results 24hrs Laboratory Tests Test 08/16/18 04:47 08/16/18 05:00 White Blood Count 16.9 H Red Blood Count 2.69 L Hemoglobin 8.5 L Hematocrit 26.9 L Mean Corpuscular Volume 100.0 Mean Corpuscular Hemoglobin 31.6 Mean Corpuscular Hemoglobin Concent 31.6 L Red Cell Distribution Width 19.3 H Platelet Count 106 L Mean Platelet Volume 11.7 H Immature Granulocytes % 0.800 H Neutrophils % 88.3 H Lymphocytes % 6.5 L Monocytes % 4.0 Eosinophils % 0.3 Basophils % 0.1 Nucleated Red Blood Cells % 0.0 Immature Granulocytes # 0.140 H Neutrophils # 14.9 H Lymphocytes # 1.1 Monocytes # 0.7 Eosinophils # 0.1 Basophils # 0.0 Nucleated Red Blood Cells # 0.0 Sodium Level 142 Potassium Level 4.1 Chloride Level 106 Carbon Dioxide Level 34 H Anion Gap 2 L Blood Urea Nitrogen 98 H Creatinine 1.29 H Est Glomerular Filtrat Rate mL/min Glucose Level 113 Lactic Acid Level 1.7 Calcium Level 8.1 L Blood Gas Specimen Source Blood arterial Arterial Blood Date Drawn 08/16/2018 4:30:24 AM Arterial Blood pH (Temp corrected) 7.430 Arterial Blood pCO2 (Temp correct) 46.1 H Arterial Blood pO2 (Temp corrected) 60.9 L Arterial Blood HCO3 29.9 H Arterial Blood Base Excess 5.0 H Arterial Blood Oxygen Saturation 89.5 L Vick Test ACCEPTAB Arterial Blood Gas Puncture Site Left Radial Arterial Blood Carboxyhemoglobin 0.4 Arterial Blood Methemoglobin 0.3 Blood Gas A-a O2 Differential 98.8 H Oxyhemoglobin Percent 88.9 L Blood Gas Temperature 37.0 Blood Gas Respiration Rate 18.0 Blood Gas Actual Respiration Rate 24 Blood Gas Modality VENT - AC FiO2 30.0 Blood Gas Tidal Volume 400.0 Blood Gas Low PEEP Setting 5.0 Blood Gas Notified Whom MA Blood Gas Notified Time 08/16/2018 4:52:23 AM Medications Medication Current Medications Vancomycin HCl (Vanco Iv Per Pharmacy) VANCOMYCIN PER PHARMACY PER PROTOCOL XX ; Start 07/28/18 at 17:30 Albuterol/ Ipratropium (Duoneb) 3 ml Q6H RESP THERAPY HHN Last administered on 08/02/18 01:07; Admin Dose 3 ML; Start 07/28/18 at 20:00; Status Hold Calcium/Vitamin D (Oyster Shell/ Vit-D (500/200)) 1 tab BID PO Last administered on 08/16/18 08:12; Admin Dose 1 TAB; Start 07/28/18 at 21:00 Clonazepam (Klonopin) 0.5 mg BID PRN PO ANXIETY Last administered on 08/04/18 21:00; Admin Dose 0.5 MG; Start 07/28/18 at 21:00 Clonidine (Catapres) 0.1 mg TID PRN PO ELEVATED BLOOD PRESSURE Last a dministered on 08/13/18 14:58; Admin Dose 0.1 MG; Start 07/28/18 at 21:00 Hydromorphone HCl (Dilaudid) 2 mg Q4H PRN PO SEVERE PAIN LEVEL 7-10 Last administered on 08/01/18at 23:34; Admin Dose 2 MG; Start 07/28/18 at 21:00 Docusate Sodium (Colace) 100 mg BID PRN PO CONSTIPATION; Start 07/28/18 at 21 :00 Gabapentin (Neurontin) 200 mg BID PO Last administered on 08/16/18 08:12; Admin Dose 200 MG; Start 07/28/18 at 21:00 Magnesium Hydroxide (Milk Of Mag) 30 ml DAILY PRN PO CONSTIPATION; Start at 21:00 Acetaminophen/ Hydrocodone Bitart ([place] (10/325)) 1 tab Q4H PRN PO MODERATE PAIN LEVEL 4-6 Last administered on 08/01/18 21:02; Admin Dose 1 TAB; Start 07/28/18 at 21:00 Carisoprodol (Soma) 350 mg BID PRN PO MUSCLE SPASMS; Start 07/28/18 at 21:00 Trazodone HCl (Desyrel) 50 mg HS PRN PO INSOMNIA Last administered on 07/29/18 20:29; Admin Dose 50 MG; Start 07/28/18 at 21:00 Ondansetron HCl (Zofran Inj) 4 mg Q6H PRN IV NAUSEA AND/OR VOMITING; Start 07/28/18 at 21:00 Methylprednisolone Sodium Succinate (Solu-Medrol) 40 mg DAILY IV Last administered on 08/16/18 08:11; Admin Dose 40 MG; Start 07/29/18 at 09:00 Ascorbic Acid (Vitamin C) 500 mg TID PO Last administered on 08/16/18 08:11; Admin Dose 500 MG; Start 07/29/18 at 09:00 Lorazepam (Ativan) 0.5 mg Q6H PRN PO ANXIETY Last administered on 08/10/18 21:28; Admin Dose 0.5 MG; Start 07/29/18 at 20:30 Guaifenesin/ Dextromethorphan (Robitussin Dm Liquid Cup) 5 ml Q4H PRN PO COUGH Last administered on 08/01/18 16:32; Admin Dose 5 ML; Start 07/29/18 at 20:30 Diltiazem HCl 125 ml @ 5 mls/hr TITRATE IV Last administered on 07/30/18 09:40; Admin Dose 5 MLS/HR; Start 07/30/18 at 09:00; Status Hold Dronedarone (Multaq) 400 mg BID WITH MEALS PO Last administered on 08/16/18 08:11; Admin Dose 400 MG; Start 07/30/18 at 09:30 Propofol 100 ml @ 1.986 mls/ hr Q12H IV Last administered on 08/05/18 06:36; Admin Dose 11.916 MLS/HR; Start 08/02/18 at 10:00 Acetaminophen (Tylenol Liquid) 650 mg Q6H PRN GTB MILD PAIN (1-3) OR TEMPERATURE Last administered on 08/12/18 08:13; Admin Dose 650 MG; Start 08/03/18 at 09:30 Docusate Sodium (Colace Liquid Cup) 100 mg BID PRN GTB CONSTIPATION,,,,; Start 08/03/18 at 09:30 IV Flush (NS 10 ml) 10 ml PRN PRN IV IV PROTOCOL; Start 08/03/18 at 10:30 Fentanyl 100 ml @ 2.5 mls/hr TITRATE IV Last administered on 08/15/18 22:39; Admin Dose 5 MLS/HR; Start 08/04/18 at 09:00 Lansoprazole (Prevacid) 30 mg DAILY@06 GTB Last administered on 08/16/18 05:32; Admin Dose 30 MG; Start 08/05/18 at 06:00 Midazolam HCl 50 ml @ 1 mls/hr TITRATE IV Last administered on 08/15/18at 18:49; Admin Dose 3 MLS/HR; Start 08/05/18 at 12:00 Norepinephrine 250 ml @ 1.875 mls/ hr TITRATE IV Last administered on 08/05/18at 13:00; Admin Dose 30 MLS/HR; Start 08/05/18 at 13:00 Phenylephrine HCl 80 mg/Dextrose 250 ml @ 18.75 mls/ hr TITRATE IV Last administered on 08/09/18 01:42; Admin Dose 6.56 MLS/HR; Start 08/06/18 at 15:30 Vancomycin/Sodium Chloride 250 ml @ 125 mls/hr Q72H IVPB Last administered on 08/14/18 11:26; Admin Dose 125 MLS/HR; Start 08/11/18 at 11:00 Meropenem/Sodium Chloride 50 ml @ 100 mls/hr Q12 IVPB Last administered on 08/16/18at 08:11; Admin Dose 100 MLS/HR; Start 08/12/18 at 21:00 Furosemide (Lasix) 40 mg BID DIURETICS IV ; Start 08/16/18 at 18:00 Miscellaneous Information (*Rx Drug Level Order Reminder*) VANCOMYCIN TROUGH AT 1000 ONCE ONCE XX ; Start 08/17/18 at 10:00; Stop 08/17/18 at 10:01 JOSÉ CEVALLOS Aug 16, 2018 11:54
[2018-08-16] MEDS ORDERED: ATROPINE SULFATE 1% 5ML SL PRN (14:30)
[2018-08-16] MEDS ORDERED: GLYCOPYRROLATE 0.4 MG INJ IV ONE (14:30)
[2018-08-16] MEDS: morphine (DRIP) 100 MG/100 ML 100 ML IV SCH ×2 (15:00→19:25)
[2018-08-16] MEDS: LORAZEPAM 2 MG INJ IV PRN (15:00)
[2018-08-16] MEDS ORDERED: FUROSEMIDE 20 MG INJ IV SCH (18:00)
[2018-08-17] VITALS (20 sets, daily range): BP systolic 49–142; BP diastolic 20–41; PULSE 0–91; RESP 11–25
[2018-08-17] MEDS: morphine (DRIP) 100 MG/100 ML 100 ML IV SCH ×5 (00:50→18:19)
[2018-08-17] MEDS: LORAZEPAM 2 MG INJ IV PRN ×7 (08:19→18:08)
--- NOTE | 2018-08-17 08:56 | PN ---
DATE: 08/17/2018 SUBJECTIVE: The patient was placed on comfort measures yesterday extubated. Vitals currently stable . The patient appears not to be in any distress. OBJECTIVE: VITAL SIGNS: Blood pressure is 137/34, respirations 20, pulse 70, temperature 98.6. HEENT: Head is normocephalic. NECK: Supple. HEART: Regular rate. LUNGS: Show diminished breath sounds at the base. ABDOMEN: Soft, nontender to palpation without rebound or guarding. EXTREMITIES: Negative for clubbing, cyanosis. Positive edema. DERMATOLOGIC: No rashes. MUSCULOSKELETAL: No joint effusion. NEUROLOGIC: No change in exam. MEDICATIONS: Reviewed. LABORATORY DATA: From 08/16/2018 was reviewed. ASSESSMENT: 1. Nonoliguric acute kidney injury secondary to acute tubular necrosis. 2. Hyperkalemia. 3. Anemia. 4. Mineral bone disorder. 5. Hypernatremia. 6. Volume overload. 7. Sepsis. 8. Acute cerebrovascular accident. 9. Encephalopathy. 10. Respiratory failure. 11. Dysphagia. 12. History of peripheral vascular disease. PLAN: The patient has been placed on comfort measures. We will sign off. Dictated By: GENEVIEVE MENJIVAR DO NR/NTS Conf#: [id number] DID#: [id number] CC: ABDIAS STAPLES MD;*EndCC*
--- NOTE | 2018-08-17 15:22 | PN ---
Date/Time of Note Date/Time of Note DATE: 08/17/18 TIME: 15:16 Assessment/Plan VTE Prophylaxis Risk score (from Ns)>0 risk: 12 SCD applied (from [facility] [place]): Yes Pharmacological prophylaxis: NA/contraindicated Pharm contraindication: thrombocytopenia Lines/Catheters IV [facility]ter Type (from [facility]): PICC Line Central line still needed: Yes Urinary Cath still in place: Yes Reason Cath still needed: urinary retention Assessment/Plan Hospital Course Patient was extubated yesterday, comfort care, on Morphine gtt, transitioning to in-patient -hospice. Assessment/Plan - Supratentorial and infratentorial subacute infarcts, with minimal 1.3 mm [id number] midline shift. EEG revealed abnormal EEG due to severe diffuse slowing, no epileptiform discharges were seen. Dr. Barnes is following in neurology consultation. - Acute hypoxemic respiratory failure due to healthcare-acquired pneumonia/ ARDS. Continue ventilatory support, steroids. from pulmonary standpoint. - Anemia of acute blood loss secondary to nosebleed admission, resolved. status post blood transfusion, continue to monitor hemoglobin and hematocrit. - Sepsis with gram-positive bacteremia. Continue antibiotics per ID. Dr. Brown is following in infection disease consultation. - Bilateral pulmonary fibrosis. Continue supplemental oxygen and symptomatic treatment with steroids. - Chronic obstructive pulmonary disease. Continue DuoNeb and steroids. - Nonobstructive coronary artery disease as per cardiac catheterization in 2012. Dr. Frost is following from cardiac standpoint. - Paroxysmal atrial fibrillation. Patient had an episode of atrial fibrillation with rapid ventricular response and was on Cardizem drip, currently in sinus rhythm. - Hypertension. Continue metoprolol and Lasix. p.r.n. clonidine. - Peripheral artery disease, status post stent. - Dyslipidemia. Continue Lipitor. - MARQUES, Dr. Salazar from nephrology standpoint. - Recent right hip fracture, status post surgery. - Pancreatic head mass. As per patient, she has been going to a specialist every year for followup. - Anxiety and depression. - Poor prognosis. Dr. Greenwood is following in palliative services consultation. Further recommendations based on clinical course. Plan of care discussed with Dr. Pack. Result Diagram: 08/16/1844608/16/18446 Exam/Review of Systems Exam Vitals Vital Signs Date Temp Pulse Resp B/P (MAP) Pulse Ox O2 O2 Flow FiO2 Time Delivery Rate 08/17/18 89 12:00 08/17/18 2.0 11:34 08/17/18 97.0 15 114/30 88 Nasal 09:00 (58) Cannula 08/16/18 30 15:10 Intake and Output 08/16/18 08/16/18 08/17/18 1414:59 22:59 06:59 IntakeIntake Total 100 ml 132.5 ml 160 ml OutputOutput Total 850 ml 850 ml 200 ml BalanceBalance -750 ml -717.5 ml -40 ml Medications Medication Current Medications Morphine Sulfate/ Sodium Chloride 100 ml @ 1 mls/hr TITRATE IV Last administered on 08/17/18at 14:01; Admin Dose 20 MLS/HR; Start 08/16/18 at 14:30 Lorazepam (Ativan) 1 mg Q1HWA PRN IV AGITATION/ANXIETY Last administered on 08/17/18at 15:05; Admin Dose 1 MG; Start 08/16/18 at 13:30 Atropine Sulfate (Atropine Sulfate) 2 drop Q4H PRN SL Excess Secretions; Start 08/16/18 at 14:30 RAMÓN VILLALOBOS Aug 17, 2018 15:22
--- NOTE | 2018-08-17 19:14 | CONS ---
Consult Date/Type/Reason Admit Date/Time Jul 28, 2018 at 18:16 Initial Consult Date 07/28/18 Type of Consultation: CV Requesting Provider: ABDIAS STAPLES MD Date/Time of Note DATE: 08/17/18 TIME: 19:12 Subjective Cardiology follow-up progress note Subjective: Discussed with the staff DW/ FAMILY telemetry was reviewed. Patient in afib pt extubated on morphine now Objective: General: Elderly female agonal breathing HEENT: NC/AT. Eyes are closed NECK: + JVD. no stridor. CV irregularly irregular PULM: + rhonchi. GI: SOFT, NT, ND, no rebound or guarding Extremity: + LE edema. no clubbing. neuro: Lethargic Psych: calm rectal: deferred : Deferred EKG was personally within normal sinus rhythm with no evidence of ischemia CT pulmonary angiogram done in the emergency room shows: 1. Moderate pulmonary fibrosis, worse at the bilateral lung apices. Associated mediastinal adenopathy. Underlying mass not entirely excluded. Further e valuation with PET-CT may be obtained. 2. Small right multiloculated pleural effusion. Moderate left layering pleural effusion. 3. Streaky bibasilar opacities compatible with atelectasis or pneumonia. 4. Dilated pulmonary trunk and bilateral pulmonary arteries compatible with sequelae of pulmonary hypertension. 5. Left renal 4 cm hyperdense cyst or mass. Further evaluation with multiphase contrast enhanced CT or MR may be obtained. Echocardiogram was personally reviewed which shows: Normal left ventricular systolic function. Normal left ventricular cavity size. Mild concentric left ventricular hypertrophy. Ejection fraction is visually estimated at 55 %. There is mild enlargement of left atrium. Normal appearance of the mitral valve. Mild mitral valve regurgitation. Aortic sclerosis without significant stenosis. Aortic cusps appear mildly calcified. Trileaflet aortic valve. Trace aortic valve regurgitation. Normal appearance of the tricuspid valve. Estimated peak PA systolic pressure 71 mmHg. There is mild tricuspid regurgitation. Normal size and normal respiratory collapse consistent with normal right atrial pressure. CXR 08/05 Again seen are diffuse coarse interstitial infiltrates with superimposed ground-glass densities, slightly more confluent within the perihilar regions and right lower lobe. The osseous structures are unremarkable. Chest x-ray August 06, 2018 shows: Stable patchy infiltrates throughout both lungs with potential small pleural effusions. Stable diffuse mild interstitial prominence in both lungs. Interstitial prominence could be chronic. CT HEAD 08/11/18 FINDINGS: There are numerous supratentorial and infratentorial non-hemorrhagic subacute appearing infarcts or additional infarcts involving the left thalamus are present. There is a right frontal infarct with marginal hyperdensity suggesting a component of petechial hemorrhage. There is generalize effacement of the involve sulci greatest involving the left parietal lobe. There is no left basal ganglia lacunar infarct redemonstrated. There is 1.3 mm of [id number] midline shift. There is otherwise age appropriate central and peripheral atrophy. There is a moderate degree of supratentorial periventricular and subcortical white matter hypodensities. There is no other intracranial hemorrhage or abnormal extra-axial fluid collection. Visualized paranasal sinuses are clear. IMPRESSION: 1. This is of supratentorial and infratentorial subacute appearing infarcts, largest in the confluent posterior left temporal and parietal lobe with mass effect on the left lateral ventricle. Small amount of probable petechial hemorrhage is associated with a right frontal infarct. 2. Minimal 1.3 mm [id number] midline shift. 3. Nonspecific white matter changes most commonly seen with microvascular ischemic disease. Objective Vitals Vital Signs Date Temp Pulse Resp B/P (MAP) Pulse Ox O2 O2 Flow FiO2 Time Delivery Rate 08/17/18 2.0 16:52 08/17/18 81 16:00 08/17/18 25 56/22 (33) 26 Room Air 15:00 08/17/18 97.0 09:00 08/16/18 30 15:10 Intake and Output 08/16/18 08/16/18 08/17/18 1515:00 23:00 07:00 IntakeIntake Total 80 ml 152.5 ml 160 ml OutputOutput Total 775 ml 875 ml 200 ml BalanceBalance -695 ml -722.5 ml -40 ml Results/Medications Result Diagram: 08/16/187 08/16/18446 Home Meds Reported Medications Ondansetron Hcl* (Zofran*) 8 Mg Tablet, 8 MG PO Q6H PRN for NAUSEA AND OR VOMITING, TAB 07/28/18 Guaifenesin (Xpect) 400 Mg Tablet, 400 MG PO Q12, TAB 07/28/18 Acetaminophen* (Acetaminophen*) 650 Mg Tablet, 650 MG PO Q6H PRN for PAIN AND OR ELEVATED TEMP, #30 TAB 07/28/18 Trazodone Hcl* (Trazodone Hcl*) 50 Mg Tablet, 50 MG PO QHS, #30 TAB 07/28/18 Carisoprodol* (Carisoprodol*) 350 Mg Tablet, 350 MG PO BID PRN for MUSCLE SPASMS, TAB 07/28/18 Montelukast Sodium* (Singulair*) 10 Mg Tablet, 10 MG PO QHS, #30 TAB 07/28/18 Sennosides* (Senna Lax*) 8.6 Mg Tablet, 2 TAB PO QHS, TAB 07/28/18 Fluoxetine Hcl* (Prozac*) 20 Mg Capsule, 20 MG PO DAILY, CAP 07/28/18 Promethazine Hcl* (Phenergan* Liq) 6.25 Mg/5 Ml Syrup, 12.5 MG PO Q6H PRN for COUGH, ML 07/28/18 Lansoprazole* (Lansoprazole*) 30 Mg Capsule.dr, 30 MG PO DAILY, CAP 07/28/18 Vit C/E/Zn/Coppr/Lutein/Zeaxan (Preservision Areds 2 Softgel) 1 Each Capsule, 2 EACH PO DAILY, CAP 07/28/18 Prednisone* (Prednisone*) 20 Mg Tab, 40 MG PO DAILY, TAB 07/28/18 Chlorhexidine Gluconate (Peridex) 473 Ml Mouthwash, 15 ML MM BID, BOTTLE 07/28/18 Perley-3 Acid Ethyl Esters (Lovaza) 1 Gm Capsule, 2 GM PO DAILY, CAP 07/28/18 Hydrocodone/Acetaminophen (Arrey 10-325 Tablet) 1 Each Tablet, 1 EACH PO Q4 PRN for SEVERE PAIN LEVEL 7-10, TAB 07/28/18 Multivitamins* (Theragran*) 1 Tab Tab, 1 TAB PO DAILY, TAB 07/28/18 Guaifenesin (Guaifenesin) 600 Mg Tablet.sa, 600 MG PO BID, TAB 07/28/18 Magnesium Hydroxide* (Milk Of Magnesia*) 400 Mg/5 Ml Oral.susp, 30 ML PO DAILY PRN for CHEST PAIN, ML 07/28/18 Metoprolol Tartrate* (Lopressor*) 50 Mg Tab, 50 MG PO DAILY, #60 TAB HOLD FOR SBP<110 OR HR<60 07/28/18 Atorvastatin Calcium (Atorvastatin Calcium) 10 Mg Tablet, 10 MG PO QHS, #30 TAB 07/28/18 Lidocaine (Lidocaine) 5 Gm Cream..g., 5 GM TP DAILY 07/28/18 Furosemide* (Lasix*) 20 Mg Tablet, 20 MG PO DAILY, TAB 07/28/18 Lactobacillus Rhamnosus* (Culturelle*) 1 Each Cap.sprink, 1 CAP PO DAILY, CAP 07/28/18 Ipratropium-Albuterol (Ipratropium-Albuterol) 0.5-3 Mg/3 Ml Ampul.neb, 3 ML INHALATION Q4 PRN for SHORTNESS OF BREATH, #30 VIAL 07/28/18 Gabapentin* (Gabapentin*) 100 Mg Capsule, 200 MG PO BID, #180 CAP 07/28/18 Folic Acid* (Folic Acid*) 1 Mg Tablet, 1 MG PO DAILY, TAB 07/28/18 Ferrous Sulfate* (Ferrous Sulfate*) 325 Mg Tabec, 325 MG PO TID, TAB 07/28/18 Estrogens Conjugated* (Premarin*) 0.45 Mg Tablet, 0.45 MG PO DAILY, TAB 07/28/18 Bisacodyl (Dulcolax) 10 Mg Supp.rect, 10 MG RC Q48, SUPP.RECT 07/28/18 Docusate Sodium* (Colace*) 100 Mg Capsule, 100 MG PO QHS PRN for CONSTIPATION, #60 CAP 07/28/18 Hydromorphone Hcl* (Dilaudid*) 2 Mg Tablet, 2 MG PO Q6H PRN for SEVERE PAIN LEVEL 7-10, TAB 07/28/18 Cyanocobalamin* (Vitamin B12*) 500 Mcg Tab, 500 MCG PO DAILY, TAB 07/28/18 Clonidine Hcl* (Clonidine Hcl*) 0.1 Mg Tab, 0.1 MG PO Q8, TAB 07/28/18 Clonazepam* (Clonazepam*) 0.5 Mg Tablet, 0.5 MG PO BID PRN for ANXIETY, TAB 07/28/18 Calcium Carbonate/Vitamin D3 (Oysco 500+D Tablet) 1 Each Tablet, 1 EACH PO BID, TAB 07/28/18 Fluticasone/Vilanterol (Breo Ellipta 200-25 Mcg INH) 1 Each Blst.w.dev, 1 PUFF INHALATION DAILY, #1 INHALER 07/28/18 Lorazepam* (Lorazepam*) 0.5 Mg Tablet, 0.5 MG PO Q6 PRN for ANXIETY, TAB 07/28/18 Diphenhydramine Hcl* (Benadryl*) 25 Mg Cap, 25 MG PO Q8 PRN for PRN, CAP 07/28/18 Aspirin* (Aspirin* Chew) 81 Mg Tab.chew, 81 MG PO DAILY, TAB.CHEW 07/28/18 Ascorbic Acid* (Vitamin C*) 500 Mg Capsule.sa, 500 MG PO TID, CAP 07/28/18 Apixaban* (Eliquis*) 5 Mg Tablet, 5 MG PO BID, TAB 07/28/18 Hydrocortisone Acetate (Anusol-Hc) 25 Mg Supp.rect, 25 MG ME BID PRN for CONSTIPATION, SUPP.RECT 07/28/18 Amiodarone Hcl* (Amiodarone Hcl*) 200 Mg Tablet, 200 MG PO BID, #30 TAB HOLD FOR SBP<110 OR HR<60 07/28/18 Medications Current Medications Morphine Sulfate/ Sodium Chloride 100 ml @ 1 mls/hr TITRATE IV Last administered on 08/17/18at 18:19; Admin Dose 35 MLS/HR; Start 08/16/18 at 14:30 Lorazepam (Ativan) 1 mg Q1HWA PRN IV AGITATION/ANXIETY Last administered on 08/17/18at 18:08; Admin Dose 1 MG; Start 08/16/18 at 13:30 Atropine Sulfate (Atropine Sulfate) 2 drop Q4H PRN SL Excess Secretions; Start 08/16/18 at 14:30 Assessment/Plan Hospital Course (Demo Recall) 1. Hypoxemic respiratory failure: Status post intubation on the vent now 2. Pulmonary fibrosis/severe COPD 3. Elevated BNP most likely secondary to above and significant pulmonary hypertension 4. paroxysmal atrial fibrillation; currently converted back to normal sinus rhythm 5. Encephalopathy, CVA: probably embolic 6. pneumonia 7. History of recent fall and hip fracture status post surgery 8. Anemia and OB positive stool 9. Lactic acidosis 10. Hypertension 11. Pulmonary hypertension 12. shock. sepsis 13. Thrombocytopenia Recommendations: Patient is on morphine drip and comfort care for now. Continue to keep the patient comfortable. CODE STATUS is DNR We will sign off now . Thank you for his referral. DAYRON ROGERS MD [facility] DAYRON ROGERS MD Aug 17, 2018 19:14
--- NOTE | 2018-09-23 08:40 | DES ---
Date/Time of Note Date/Time of Note DATE: 09/23/18 TIME: 08:36 Discharge/ Summary Admission/Discharge Info Admit Date/Time Jul 28, 2018 at 18:16 Date/Time 08/17/18 at 18:33 Final Diagnosis - Supratentorial and infratentorial subacute infarcts, with minimal 1.3 mm [id number] midline shift. EEG revealed abnormal EEG due to severe diffuse slowing, no epileptiform discharges were seen. Dr. Barnes is following in neurology consultation. - Acute hypoxemic respiratory failure due to healthcare-acquired pneumonia/ ARDS. Continue ventilatory support, steroids. from pulmonary standpoint. - Anemia of acute blood loss secondary to nosebleed admission, resolved. status post blood transfusion, continue to monitor hemoglobin and hematocrit. - Sepsis with gram-positive bacteremia. Continue antibiotics per ID. Dr. Brown is following in infection disease consultation. - Bilateral pulmonary fibrosis. Continue supplemental oxygen and symptomatic treatment with steroids. - Chronic obstructive pulmonary disease. Continue DuoNeb and steroids. - Nonobstructive coronary artery disease as per cardiac catheterization in 2012. Dr. Frost is following from cardiac standpoint. - Paroxysmal atrial fibrillation. Patient had an episode of atrial fibrillation with rapid ventricular response and was on Cardizem drip, currently in sinus rhythm. - Hypertension. Continue metoprolol and Lasix. p.r.n. clonidine. - Peripheral artery disease, status post stent. - Dyslipidemia. Continue Lipitor. - MARQUES, Dr. Salazar from nephrology standpoint. - Recent right hip fracture, status post surgery. - Pancreatic head mass. As per patient, she has been going to a specialist every year for followup. - Anxiety and depression. - Poor prognosis. Dr. Greenwood is following in palliative services consultation. Preliminary Cause of ARF/ARDS Admit History The patient is a 73-year-old female with history of nonobstructive coronary artery disease (cardiac catheterization in 2012) , COPD, hypertension, paroxysmal atrial fibrillation, peripheral vascular disease status post PCI, dyslipidemia, hypothyroidism, anxiety and depression. The patient developed acute respiratory failure back in 2013 and was at [facility]. At that time patient underwent tracheostomy and G-tube placement which she was subsequently decannulated. G tube was also removed. The patient was sent to a board and care and was re hospitalized at [facility] in 06/2016 after a fall which led to splenic laceration. The patient underwent embolization of splenic artery and again underwent tracheostomy and G-tube placement and was sent to [facility]. The patient from [facility] was sent to [facility] subacute unit and after decannulation, she was sent to [facility] nursing home [facility]. Meanwhile G-tube was also removed. The patient few weeks ago, was sent home and her respiratory status was stable. The patient was not even requiring oxygen. The patient, however, sustained a fall at home and was taken to [facility] and was diagnosed with right hip fracture. The patient underwent RF and after about a week, she was sent back to [facility] for recuperation. The patient was seen by me at nursing home [facility] yesterday due to cough, shortness of breath and fever. The patient was noted to be hypoxemic and had to be put on 4 to 5 liters of oxygen via nasal cannula. The patient also had a fever around 100. The patient was advised to go to the hospital, however, she refused. I explained to her that she could get worse and she needs close monitoring. However, she still did not want to come to the hospital. This morning, I was called by [facility] nursing [facility]'s staff that she was getting worse as far as respiratory status is concerned. Meanwhile, I had ordered a stat workup at [facility] and had started her on vancomycin and cefepime along with systemic steroids,& breathing treatment. X-ray done yesterday did reveal bilateral infiltrate and the patient also had leukocytosis. The patient was sent to the ER today due to worsening respiratory status. The patient denied any chest pain, no reported hemoptysis. No reported leg pain, no leg edema. No reported resting leg pain. No reported vomiting, no reported bleeding from any site. The patient looks pale and weak and was getting short of breath even at rest. Initially, she was placed on BiPAP due to significant hypoxemia. The patient did not have any headache, dizziness, syncope. No history of focal weakness. No history of dysuria or hematuria. No vomiting or diarrhea. Hospital Course Patient was extubated yesterday, comfort care, on Morphine gtt, transitioning to in-patient -hospice. Assessment/Plan - Supratentorial and infratentorial subacute infarcts, with minimal 1.3 mm [id number] midline shift. EEG revealed abnormal EEG due to severe diffuse slowing, no epileptiform discharges were seen. Dr. Barnes is following in neurology consultation. - Acute hypoxemic respiratory failure due to healthcare-acquired pneumonia/ ARDS. Continue ventilatory support, steroids. from pulmonary standpoint. - Anemia of acute blood loss secondary to nosebleed admission, resolved. status post blood transfusion, continue to monitor hemoglobin and hematocrit. - Sepsis with gram-positive bacteremia. Continue antibiotics per ID. Dr. Brown is following in infection disease consultation. - Bilateral pulmonary fibrosis. Continue supplemental oxygen and symptomatic treatment with steroids. - Chronic obstructive pulmonary disease. Continue DuoNeb and steroids. - Nonobstructive coronary artery disease as per cardiac catheterization in 2012. Dr. Frost is following from cardiac standpoint. - Paroxysmal atrial fibrillation. Patient had an episode of atrial fibrillation with rapid ventricular response and was on Cardizem drip, currently in sinus rhythm. - Hypertension. Continue metoprolol and Lasix. p.r.n. clonidine. - Peripheral artery disease, status post stent. - Dyslipidemia. Continue Lipitor. - MARQUES, Dr. Salazar from nephrology standpoint. - Recent right hip fracture, status post surgery. - Pancreatic head mass. As per patient, she has been going to a specialist every year for followup. - Anxiety and depression. - Poor prognosis. Dr. Greenwood is following in palliative services consultation. Plan of care discussed with Dr. Pack. RAMÓN VILLALOBOS Sep 23, 2018 08:40
== END 2018-08-17 21:04 | disposition expired | DRG 870 ==
LOC: E/R 13:15 → EDBEDREQ 16:48 → EDBEDREQSVC 18:16 → TEL 18:16 → ICU 08-02 02:08
PROVIDERS: ADMIT Internal Medicine; ATTEND Internal Medicine
PROC: 30233N1 Transfusion of Nonautologous Red Blood Cells into Peripheral Vein, Percutaneous Approach (ICD-10-PCS; 2018-07-28)
PROC: 5A1955Z Respiratory Ventilation, Greater than 96 Consecutive Hours (ICD-10-PCS; principal; 2018-08-02)
PROC: 0BH17EZ Insertion of Endotracheal Airway into Trachea, Via Natural or Artificial Opening (ICD-10-PCS; 2018-08-02)
PROC: 5A09357 Assistance with Respiratory Ventilation, Less than 24 Consecutive Hours, Continuous Positive Airway Pressure (ICD-10-PCS; 2018-08-02)
PROC: 02HV33Z Insertion of Infusion Device into Superior Vena Cava, Percutaneous Approach (ICD-10-PCS; 2018-08-03)
DX: A41.9 Sepsis, unspecified organism (principal); J96.01 Acute respiratory failure with hypoxia; J18.9 Pneumonia, unspecified organism; G92 Toxic encephalopathy; R65.21 Severe sepsis with septic shock; I63.9 Cerebral infarction, unspecified; N17.9 Acute kidney failure, unspecified; D62 Acute posthemorrhagic anemia; E87.2 Acidosis; E87.0 Hyperosmolality and hypernatremia; J90 Pleural effusion, not elsewhere classified; D50.9 Iron deficiency anemia, unspecified; E78.5 Hyperlipidemia, unspecified; F41.9 Anxiety disorder, unspecified; F32.9 Major depressive disorder, single episode, unspecified; G62.9 Polyneuropathy, unspecified; I10 Essential (primary) hypertension; I48.0 Paroxysmal atrial fibrillation; I25.10 Atherosclerotic heart disease of native coronary artery without angina pectoris; I73.9 Peripheral vascular disease, unspecified; I27.20 Pulmonary hypertension, unspecified; J84.10 Pulmonary fibrosis, unspecified; J44.9 Chronic obstructive pulmonary disease, unspecified; K86.9 Disease of pancreas, unspecified; R04.0 Epistaxis; Z66 Do not resuscitate; Z51.5 Encounter for palliative care; Z96.641 Presence of right artificial hip joint; Z95.828 Presence of other vascular implants and grafts; Z91.81 History of falling; Z87.891 Personal history of nicotine dependence; Z79.01 Long term (current) use of anticoagulants; Z79.82 Long term (current) use of aspirin
CPT/HCPCS: 31500; 36415; 36430; 36569; 36600; 70450; 71045; 71275; 76604; 76937; 80048; 80053; 80061; 80162; 80202; 81001; 81003; 82140; 82150; 82270; 82607; 82728; 82803; 82962; 83036; 83540; 83605; 83615; 83690; 83735; 83880; 84100; 84439; 84443; 84466; 84484; 85025; 85378; 85610; 85651; 85730; 86592; 86644; 86850; 86900; 86901; 86920; 87040; 87070; 87081; 87086; 87205; 87400; 93005; 93306; 93308; 93880; 93926; 93971; 94002; 94003; 94640; 94644; 94660; 94664; 94770; 95819; 96374; 96375; C1769; C9113; J0692; J1170; J1450; J1630; J1940; J1956; J2060; J2185; J2250; J2270; J2310; J2370; J2916; J2920; J2930; J3010; J3370; J7030; J7070; P9016; P9047; Q9967